=== PATIENT | male | born 1945 | race Two or more races ===

== ENCOUNTER 2022-03-31 10:31 | Inpatient (IN) | payer OTHER, SELFPAY ==
[2022-03-31] VITALS (20 sets, daily range): BP systolic 86–138; BP diastolic 52–88; PULSE 40–74; RESP 10–24; TEMP 31.7–37.4; O2SAT 91–98; BMI 29.5
--- NOTE | ~2022-03-31 | XR_ITS ---
EXAMINATION: XR chest 1V CLINICAL INFORMATION: Reason for Exam s/p central line placement COMPARISON: Chest radiograph 04/06/2022 TECHNIQUE: One view of the chest XR/XR chest 1V FINDINGS/IMPRESSION: Interval placement of a right internal jugular central venous catheter tip terminating in the upper superior vena cava. No pneumothorax. Low lung volumes with similar small right pleural effusion and increasing right greater than left patchy parenchymal airspace opacities, possibly reflective of atelectasis in the setting of low lung volumes though superimposed infection could appear similar. Unchanged cardiomediastinal silhouette.
--- NOTE | ~2022-03-31 | XR_ITS ---
EXAMINATION: XR CHEST CLINICAL INFORMATION: Hypoxemia COMPARISON: 04/05/2022 TECHNIQUE: Frontal view of the chest was obtained. FINDINGS: The lungs are hypoinflated. Small right pleural effusion is suspected with adjacent atelectasis versus consolidation, similar to possibly slightly improved from prior. Minimal atelectasis is suspected at the left lung base. No evidence of pneumothorax or overt pulmonary edema. The cardiomediastinal silhouette is stable. Degenerative changes are noted in the spine. XR/XR chest 1V IMPRESSION: Small right pleural effusion with adjacent basilar atelectasis versus consolidation, similar to possibly slightly improved from prior.
--- NOTE | ~2022-03-31 | CT_ITS ---
EXAMINATION: CT ABDOMEN AND PELVIS WITHOUT CONTRAST CLINICAL INFORMATION: Nephrostomy tube. Pain. Hematuria. COMPARISON: None TECHNIQUE: Multidetector volumetric imaging was performed from the superior aspect of the liver through the pubic symphysis. Sagittal and coronal reformatted images were obtained on the technologist's workstation. This CT examination was performed using dose optimization techniques as appropriate, variously including the following: *Automated exposure control *Adjustment of mA and/or kV according to patient size (this includes techniques or standardized protocols for targeted exams where dose is matched to indication/reason for exam; i.e. extremities or head) *Use of iterative reconstruction technique DLP: 603 mGy-cm FINDINGS: LUNG BASES: Moderate right and small left pleural effusions. Associated lower lobe atelectasis. Patchy opacity of the right middle lobe and lingula. Coronary artery calcifications. Enlarged heart. LIVER, GALLBLADDER, AND BILIARY TREE: Normal size and attenuation of the liver. There is a nodular hepatic Contour. No biliary ductal dilatation. Calcifications in the liver with no focal mass identified. Stones layering in the gallbladder lumen. No wall thickening or adjacent inflammation. PANCREAS: Unremarkable. SPLEEN: Unremarkable. ADRENAL GLANDS: Unremarkable. KIDNEYS AND URETERS: The kidneys are normal in size, shape, and attenuation. There is a percutaneous nephrostomy tube at the left kidney. No left hydronephrosis. There is hydroureter. There is mild right hydroureteronephrosis. The ureters are dilated to the level of the bladder. No calculi. Simple right upper pole renal cyst. No specific follow-up recommended. BLADDER: There is a Waldrop catheter in the bladder lumen. Bladder remains partially distended with wall thickening. GASTROINTESTINAL TRACT: The stomach is decompressed. Normal caliber small bowel. No colonic wall thickening or inflammation. Moderate diffuse colonic stool burden. Free air. ABDOMINAL WALL: No significant hernia is appreciated. Mild anasarca. LYMPH NODES: Normal. VASCULAR: Mild atherosclerotic calcifications. There is an abdominal aortic aneurysm measuring 4.1 cm transverse by 2.7 cm AP. PELVIC VISCERA: Enlarged prostate measures 5 cm transverse. The seminal vesicles are unremarkable. OSSEOUS STRUCTURES: No acute or suspicious osseous abnormality. Mild to moderate degenerative changes throughout the spine. CT/CT abdomen pelvis wo IV con IMPRESSION: 1. Left percutaneous nephrostomy tube is in place. Bilateral hydroureter with right-sided hydronephrosis. The dilatation extends to the level of the bladder. Etiology is uncertain. This could be associated with outlet obstruction, though infection or mass are not excluded. 2. Moderate right and small left pleural effusions. Patchy opacities at the lung bases could be infectious or inflammatory. 3. Abdominal aortic aneurysm measuring 4.1 cm transverse. Recommend follow-up every 6 months and nonemergent vascular consultation. 4. Cholelithiasis. Fleischner guidelines were followed.
--- NOTE | ~2022-03-31 | US_ITS ---
EXAMINATION: US ABDOMEN COMPLETE CLINICAL INFORMATION: Evaluate for hydronephrosis, liver disease. COMPARISON: CT scan of the abdomen and pelvis dated 04/03/2022. TECHNIQUE: Real-time imaging of the abdominal viscera. FINDINGS: PANCREAS: Visualized portions unremarkable. ABDOMINAL AORTA: Visualized portions unremarkable. INFERIOR VENA CAVA: Visualized portions unremarkable. LIVER: Unremarkable. GALLBLADDER: Mildly distended limiting evaluation. Mild mural thickening up to 0.6 cm without edema or pericholecystic fluid. Multiple small echogenic gallstones measuring up to 1.3 cm. COMMON BILE DUCT: Normal in caliber measuring 0.3 cm in diameter. RIGHT KIDNEY: 11.0 cm. Interval anechoic cyst measures is 1.0 cm. Color Doppler showed no abnormal vascular flow. LEFT KIDNEY: 11.1 cm. Left nephrostomy tube in place without abnormality. No left hydronephrosis. Tiny subcapsular anechoic cyst laterally measures 0.4 cm. Color Doppler showed no abnormal vascular flow. SPLEEN: 16.2 cm. Unremarkable. FREE FLUID: None. US/US abdomen complete IMPRESSION: 1. Left nephrostomy tube in place without hydronephrosis. Tiny renal cysts bilaterally demonstrate benign features not requiring follow-up. 2. Cholelithiasis without evidence for acute cholecystitis. Mild mural thickening is likely secondary to incomplete distention/chronic change.
--- NOTE | ~2022-03-31 | XR_ITS ---
EXAMINATION: XR CHEST CLINICAL INFORMATION: Sepsis COMPARISON: None TECHNIQUE: Frontal view of the chest was obtained. FINDINGS: Cardiomegaly and pulmonary venous congestion. Bilateral patchy airspace opacities, coalescent and parahilar regions. Small right pleural effusion with accompanying atelectasis. No acute osseous abnormalities. XR/XR chest 1V IMPRESSION: * Bilateral patchy airspace opacities are nonspecific. Pulmonary edema or pneumonitis could have this appearance. * Small right pleural effusion with accompanying atelectasis.
--- NOTE | ~2022-03-31 | XR_ITS ---
EXAMINATION: XR CHEST CLINICAL INFORMATION: Shortness of breath COMPARISON: Chest radiograph yesterday TECHNIQUE: Frontal view of the chest was obtained. FINDINGS: Again seen is cardiomegaly pulmonary vascular congestion. Airspace changes on the right as well as on the left are improved with decreased opacity. Small right effusion and right basilar atelectasis remain. XR/XR chest 1V IMPRESSION: Cardiomegaly with pulmonary vascular congestion and small right effusion. Appearances are slightly improved when compared to yesterday.
--- NOTE | ~2022-03-31 | CT_ITS ---
EXAMINATION: CT HEAD WITHOUT CONTRAST (STROKE PROTOCOL) CLINICAL INFORMATION: Stroke protocol. . Point pupils. Unresponsive. COMPARISON: None TECHNIQUE: Contiguous axial imaging was performed from the skull base to vertex without intravenous administration of contrast. This CT examination was performed using dose optimization techniques as appropriate, variously including the following: *Automated exposure control *Adjustment of mA and/or kV according to patient size (this includes techniques or standardized protocols for targeted exams where dose is matched to indication/reason for exam; i.e. extremities or head) *Use of iterative reconstruction technique DLP: 709 mGy-cm FINDINGS: There is no evidence of an extra-axial collection. There is no evidence of intra-axial or extra-axial hemorrhage. The ventricles and extra-axial CSF spaces are prominent suggestive of generalized atrophy. There is nonspecific periventricular white matter disease. No mass, mass effect or infarct is seen. Review of bone windows is normal. No skull fracture. Visualized paranasal sinuses, mastoid air cells and middle ears are clear. CT/CT head for stroke IMPRESSION: No acute intracranial pathology. Mild generalized atrophy and nonspecific periventricular white matter disease. This critical result was discussed with . workstation were at 1054 hours on 03/31/2022. It was ascertained that the content and urgency of the report was understood at the time of direct communication.
--- NOTE | ~2022-03-31 | MR_ITS ---
EXAMINATION: MR BRAIN WITHOUT CONTRAST CLINICAL INFORMATION: r/o multiple stroke COMPARISON: CT head without contrast 04/06/2022 TECHNIQUE: Multiplanar multisequence MR imaging of the brain was obtained without intravenous contrast. FINDINGS: There is no acute infarct on diffusion-weighted imaging. There is no intracranial hemorrhage on iron-sensitive imaging. No extra-axial collection or mass effect/herniation. Patchy periventricular and deep white matter T2 FLAIR hyperintensities consistent with moderate underlying microangiopathy. Small region of encephalomalacia and gliosis in the lateral right temporal lobe which may be posttraumatic. No evidence of acute hydrocephalus. There is a degree of generalized cerebral volume loss with prominence of both the ventricles and sulcal spaces. However, there appears to be mildly disproportionate prominence of the ventricles. Additionally, there is relative sulcal crowding at the vertex. Signal abnormality of the V3 segment and intradural right vertebral artery. Remaining flow voids at the skull base are maintained. The midline structures are normal. The cerebellar tonsils are normally positioned. The craniocervical junction is normal. Marrow signal is within normal limits. The visualized soft tissues are without significant abnormality. No signal abnormality within the paranasal sinuses or within the mastoid air cells. MR/MR head/brain wo con IMPRESSION: 1. No acute infarct or other acute intracranial abnormality. 2. Ventriculomegaly with slightly disproportionate ventricular enlargement relative to the degree of cerebral volume loss with sulcal crowding at the vertex. Recommend clinical correlation for normal pressure hydrocephalus. 3. Moderate chronic microangiopathy. 4. Encephalomalacia and gliosis in the lateral right temporal lobe, possibly posttraumatic. 5. Abnormal flow related signal of the distal cervical and intradural right vertebral artery related to known cervical occlusion better assessed on preceding CTA.
--- NOTE | ~2022-03-31 | XR_ITS ---
EXAMINATION: XR CHEST CLINICAL INFORMATION: Shortness of breath. COMPARISON: 04/01/2022 chest radiograph. TECHNIQUE: Frontal view of the chest was obtained. FINDINGS: There is a small right pleural effusion. The right upper lung field and left lung are clear. The heart and mediastinal structures are unremarkable. XR/XR chest 1V IMPRESSION: Interval decrease in pulmonary vascular congestion with persistent small right pleural effusion.
--- NOTE | ~2022-03-31 | CT_ITS ---
EXAMINATION: CT ABDOMEN AND PELVIS WITHOUT CONTRAST CLINICAL INFORMATION: Metabolic encephalopathy. Abdominal distention. COMPARISON: MRI brain 04/06/2022. CT abdomen pelvis 04/03/2022. CT angiography neck 03/31/2022. Chest radiograph 04/11/2022. Abdominal ultrasound 04/09/2022. TECHNIQUE: Multidetector volumetric imaging was performed from the superior aspect of the liver through the pubic symphysis. Sagittal and coronal reformatted images were obtained on the technologist's workstation. This CT examination was performed using dose optimization techniques as appropriate, variously including the following: *Automated exposure control *Adjustment of mA and/or kV according to patient size (this includes techniques or standardized protocols for targeted exams where dose is matched to indication/reason for exam; i.e. extremities or head) *Use of iterative reconstruction technique DLP: 1237 mGy-cm FINDINGS: LUNG BASES: Partial visualization is made of a moderate dependent layering pleural effusion which appears slightly decreased in size compared with 04/03/2022. Partial visualization is made of near complete right lower lobe atelectasis. A trace left pleural effusion is noted. Marked coronary artery calcific atherosclerosis is present diffusely. The heart size is grossly normal. No pericardial thickening or pericardial fluid collections identified. LIVER, GALLBLADDER, AND BILIARY TREE: Liver demonstrates a micronodular contour. The liver is normal in size. Curvilinear dystrophic calcifications over an approximate 1 cm diameter region are present within the posterior segment of the right lobe of the liver. Multiple calcified dependent layering gallstones are present within the gallbladder lumen. A moderate quantity of right subphrenic perihepatic fluid is present increased compared with 04/03/2022. PANCREAS: Unremarkable. SPLEEN: Unremarkable. ADRENAL GLANDS: Unremarkable. KIDNEYS AND URETERS: A left nephrostomy catheter is present with the catheter terminating in the left renal pelvis grossly unchanged compared with 04/03/2022. Mild left perinephric fat reticulation is present. No left perinephric fluid collections identified. Mild left pelviectasis noted. No left-sided ureterectasis. Moderate right marked right ureterectasis diffusely which is unchanged in degree compared with 04/03/2022. A 7 mm rounded low-density focus is present in the superior right renal pole and is most suspicious for a benign, simple cyst requiring no additional imaging follow-up. BLADDER: Waldrop catheter terminates within the urinary bladder with gas noted in portions of the Waldrop catheter tubing. The urinary bladder is nearly fully decompressed. GASTROINTESTINAL TRACT: Motion artifact partially obscures visualization of the abdomen pelvis including the intestines. A cecal bascule is noted. The appendix is normal in caliber. Scattered interloop fluid is noted with fluid most pronounced in the right lateral gutter (-31 Hounsfield units). ABDOMINAL WALL: Periumbilical hernia measuring 1.5 cm in diameter contains fat without evidence of inflammatory changes. Dependent subcutaneous edema is present within the pelvis and abdomen increased in prominence from the comparison exam suspicious for anasarca. LYMPH NODES: Normal. VASCULAR: Focal aneurysmal dilatation of the immediate infrarenal abdominal aorta to a maximum transverse dimension of 4.1 cm is unchanged from the comparison CT. Moderate scattered calcific atherosclerosis noted. PELVIC VISCERA: Normal size of the prostate. OSSEOUS STRUCTURES: Multilevel chronic spondylosis of the thoracolumbar spine. CT/CT abdomen pelvis wo IV con IMPRESSION: *Mild ascites increased compared with 04/03/2022. *Micronodular contour of the liver suspicious for cirrhosis. *Partially visualized moderate right pleural effusion and right lower lobe atelectasis. *Left percutaneous nephrostomy tube unchanged in positioning compared with 04/03/2022. Unchanged diffuse marked right ureterectasis compared with 04/03/2022. Waldrop catheter terminating within the urinary bladder which is nearly decompressed. 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 *Cholelithiasis.
--- NOTE | ~2022-03-31 | XR_ITS ---
EXAMINATION: XR CHEST CLINICAL INFORMATION: Question aspiration. COMPARISON: Chest x-ray 04/06/2022 TECHNIQUE: Frontal view of the chest was obtained. FINDINGS: Patient is rotated to the right with moderate opacification right lung base likely combination of effusion/infiltrate or atelectasis. The right upper lung and the left lung is clear. Heart size enlarged. Pulmonary vascularity is normal. No gross bony abnormality. XR/XR chest 1V IMPRESSION: Moderate opacification right lung base likely combination of effusion/atelectasis or infiltrate. The left lung is clear. Cardiomegaly.
--- NOTE | ~2022-03-31 | CT_ITS ---
EXAMINATION: CT HEAD WITHOUT CONTRAST (STROKE PROTOCOL) CLINICAL INFORMATION: Stroke protocol. CVA COMPARISON: CT brain 03/31/2022 TECHNIQUE: Contiguous axial imaging was performed from the skull base to vertex without intravenous administration of contrast. This CT examination was performed using dose optimization techniques as appropriate, variously including the following: *Automated exposure control *Adjustment of mA and/or kV according to patient size (this includes techniques or standardized protocols for targeted exams where dose is matched to indication/reason for exam; i.e. extremities or head) *Use of iterative reconstruction technique DLP: 773 mGy-cm FINDINGS: There is no acute intra-axial, extra-axial bleed, masses, collection midline shift. There is no acute infarction evolution. There is diffuse periventricular hypodensity in both cerebral hemispheres without mass effect. The lateral ventricles are symmetrical but moderately enlarged. No abnormality seen in the posterior fossa. There is calcification of choroid plexus fourth ventricle is noted. Bone windows reveal no calvarial abnormality. Bilateral paranasal sinuses and mastoid air cells are well-aerated. CT/CT head for stroke IMPRESSION: No acute intracranial process seen. This critical result was discussed with at 9:49 AM on 04/06/2022. It was ascertained that the content and urgency of the report was understood at the time of direct communication.
--- NOTE | ~2022-03-31 | CT_ITS ---
EXAMINATION: CT ANGIOGRAM NECK WITH CONTRAST CT ANGIOGRAM BRAIN WITH CONTRAST CLINICAL INFORMATION: Pinpoint pupils. COMPARISON: Noncontrast head CT performed earlier the same day. TECHNIQUE: Test bolus sequences followed by intravenous administration 70 mL of Omnipaque 350. Helical imaging was performed in the axial plane from the thoracic inlet to the skull vertex. Delayed postcontrast imaging of the head was also performed. The data was processed at the cardiopulmonary technologist workstation for generation of MIP sequences. Angled MIPs and volume rendered reformatted images were also generated at an offline 3D workstation under concurrent supervision. Stenoses are assessed in accordance with NASCET criteria unless otherwise indicated. This CT examination was performed using dose optimization techniques as appropriate, variously including the following: *Automated exposure control *Adjustment of mA and/or kV according to patient size (this includes techniques or standardized protocols for targeted exams where dose is matched to indication/reason for exam; i.e. extremities or head) *Use of iterative reconstruction technique FINDINGS: BRAIN: There is global cerebral volume loss and there is chronic microangiopathy. [There is no intracranial hemorrhage, hydrocephalus, extra-axial surface collection, midline shift, or other herniation pattern. Stone to white matter differentiation is diffusely maintained without evidence of an evolved acute territorial infarct. The basilar cisterns are preserved. No significant soft tissue abnormality. No acute osseous abnormality. The paranasal sinuses and the mastoid air cells are well aerated.] CERVICAL SOFT TISSUES AND LUNG APICES: Imaged upper lungs are clear. There is multilevel cervical spondylosis. There is right periauricular soft tissue stranding and thickening of the right cartilaginous external auditory canal that they can be correlated for clinical signs of right-sided otitis externa. Soft tissue within the external auditory canals bilaterally, likely cerumen that can also be correlated with direct visual inspection. NECK CTA: Atherosclerotic calcification throughout the aortic arch. Atherosclerotic calcification results in mild luminal narrowing of the left vertebral artery origin. Left cervical vertebral artery remains widely patent throughout its course. 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 Extensive atherosclerotic disease involving the carotid bifurcations bilaterally resulting in an 80-90% stenosis of the proximal right internal carotid artery and a 70% stenosis of the proximal left internal carotid artery. Retropharyngeal course of both proximal internal carotid arteries bilaterally. BRAIN CTA: No significant arterial stenoses in no acute arterial occlusions intracranially. No aneurysm. Timing of the contrast bolus allows assessment of the major dural venous sinuses, which all opacify normally] CT/CT angio head neck stroke IMPRESSION: - No acute intracranial findings. 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 Chronic encephalomalacia and gliosis within the right temporal lobe. If focal neurologic deficit persists and if not contraindicated, a MRI of the brain would be helpful in further assessment. 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 An underlying right vertebral artery dissection cannot be excluded. - Extensive atherosclerotic disease involving the carotid bifurcations bilaterally resulting in an 80-90% stenosis of the proximal right internal carotid artery and a 70% stenosis of the proximal left internal carotid artery. Retropharyngeal course of both proximal internal carotid arteries bilaterally. - There is right periauricular soft tissue stranding and thickening of the right cartilaginous external auditory canal that they can be correlated for clinical signs of right-sided otitis externa. Soft tissue within the external auditory canals bilaterally, likely cerumen that can also be correlated with direct visual inspection. Findings discussed with Dr.Steven Perez at 11:04 AM on 03/31/2022.
--- NOTE | ~2022-03-31 | NM_ITS ---
EXAMINATION: PULMONARY PERFUSION STUDY CLINICAL INFORMATION: Acute respiratory failure with hypoxia, question pulmonary embolism. COMPARISON: No previous lung scan is available for comparison. A radiograph the chest dated 04/06/2022, the same date as this lung scan, is available for comparison. TECHNIQUE: Following the intravenous administration of 4.0 mCi Tc-99m MAA an 8-view perfusion study was performed using a dual detector gamma scintillation camera. No ventilation images were obtained. FINDINGS: Perfusion images: No segmental perfusion defects are present. There is a mild diffuse decrease in activity in the right lung, and this is more severe on the posterior images in the anterior image.. The interlobar fissure on the right is prominent. No focal anatomic appearing perfusion defects are present. The contemporaneous chest radiograph shows opacification of the right lung base. NM/NM pul perfusion IMPRESSION: Very low probability of pulmonary embolism. Abnormalities described above are likely due to a right pleural effusion.
--- NOTE | ~2022-03-31 | XR_ITS ---
EXAMINATION: XR CHEST CLINICAL INFORMATION: Hypoxia COMPARISON: Chest 04/11/2022 TECHNIQUE: Frontal view of the chest was obtained. FINDINGS: The lungs are somewhat expanded but clear of acute process. There is no pleural effusion or pneumothorax. Heart size and pulmonary vascularity is normal. No gross bony abnormality seen. XR/XR chest 1V IMPRESSION: Unremarkable chest exam.
--- NOTE | ~2022-03-31 | US_ITS ---
EXAMINATION: US VENOUS ULTRASOUND WITH DOPPLER LOWER EXTREMITY, BILATERAL CLINICAL INFORMATION: Lower extremity edema. COMPARISON: None TECHNIQUE: Ultrasound of the deep veins is performed from the hip to the calf with compression sonography and color and pulse Doppler assessment. Spectral analysis with color-flow imaging is performed. FINDINGS: Exam was done portably and is somewhat limited. RIGHT: There is normal venous compression and respiratory variation and augmented flow. The visualized common femoral vein, superficial femoral vein, profunda femoral vein, popliteal vein, and the trifurcation region shows no evidence of deep venous thrombosis. There is no significant popliteal fossa cyst. LEFT: There is normal venous compression and respiratory variation and augmented flow. The visualized common femoral vein, superficial femoral vein, profunda femoral vein, popliteal vein, and the trifurcation region shows no evidence of deep venous thrombosis. There is no significant popliteal fossa cyst. If the patient's symptoms persist, followup ultrasound in 5 days 7 days might be of value to exclude proximal propagation from a non-visualized calf vein. US/US venous duplex LE BI IMPRESSION: No DVT demonstrated in the bilateral lower extremities.
[2022-03-31] MEDS: Naloxone HCl 2 MG/2 ML SYRINGE 0.8 MG IVPUSH (10:34)
--- NOTE | 2022-03-31 10:36 | ED_ITS ---
HPI - Altered Mental Status General Chief Complaint: Stroke Stated Complaint: STROKE ALERT,SNF,LETHARGY,UNK THINNERS Time Seen by Provider: 03/31/22 10:32 Source: EMS Mode of arrival: EMS Limitations: altered mental status History of Present Illness HPI narrative: Patient with altered mental status starting yesterday, today completely unarousable complaint: decreased responsiveness Onset (ago): day(s) Severity: severe Context: liver disease Related Data Home Medications Medication Instructions Recorded Confirmed acetaminophen 325 mg tablet 650 mg PO Q4H PRN Pain 03/31/22 03/31/22 amlodipine 10 mg tablet 1 tab PO DAILY 03/31/22 03/31/22 aspirin 81 mg chewable tablet 81 mg PO DAILY 03/31/22 03/31/22 atorvastatin 40 mg tablet 1 tab PO DAILY 03/31/22 03/31/22 clotrimazole 1 % topical cream 1 appl topical BID PRN Rash 03/31/22 03/31/22 docusate sodium 100 mg tablet 100 mg PO DAILY 03/31/22 03/31/22 dulaglutide 0.75 mg/0.5 mL 0.75 mg subcut WE 03/31/22 03/31/22 subcutaneous pen injector (Trulicity) ferrous sulfate 325 mg (65 mg 325 mg PO DAILY 03/31/22 03/31/22 iron) tablet insulin glargine-yfgn 100 unit/mL 14 unit subcut DAILY 03/31/22 03/31/22 subcutaneous solution insulin lispro 100 unit/mL 0 sliding scale dose subcut QIDACHS 03/31/22 03/31/22 subcutaneous solution multivitamin 1 tab PO DAILY 03/31/22 03/31/22 nadolol 20 mg tablet 1 tab PO DAILY 03/31/22 03/31/22 olanzapine 5 mg tablet 1 tab PO BEDTIME 03/31/22 03/31/22 ondansetron HCl 4 mg tablet 1 tab PO Q8H PRN Nausea 03/31/22 03/31/22 rifaximin 550 mg tablet (Xifaxan) 1 tab PO BID 03/31/22 03/31/22 sennosides 8.6 mg tablet (senna) 8.6 mg PO BEDTIME 03/31/22 03/31/22 sodium bicarbonate 650 mg tablet 650 mg PO BID 03/31/22 03/31/22 thiamine HCl (vitamin B1) 50 mg 50 mg PO DAILY 03/31/22 03/31/22 tablet triamcinolone acetonide 0.1 % 1 applic topical BID PRN Rash 03/31/22 03/31/22 topical cream Allergies Allergy/AdvReac Type Severity Reaction Status Date / Time No Known Allergies Allergy Verified 03/31/22 10:34 Review of Systems Review of Systems: Yes Unobtainable due to mental status PMFSH Social History Social History Household Members: None Housing: Assisted Living Facility Patient Tobacco Use Status: Never used Tobacco Physical Exam ED Vital Signs: Vital Signs - 24 hr 03/31/22 10:53 03/31/22 11:49 03/31/22 12:23 Temperature 89.2 F L 89.1 F L 89.2 F L Pulse Rate 65 53 53 Respiratory Rate 14 11 L 10 L Blood Pressure 116/69 98/59 L 91/55 L Pulse Oximetry 93 92 93 Oxygen Delivery Method Nasal Cannula Nasal Cannula Nasal Cannula Oxygen Flow Rate 4 4 03/31/22 12:45 03/31/22 13:33 03/31/22 13:51 Temperature 89.6 F L 90.3 F L 90.7 F L Pulse Rate 52 52 53 Respiratory Rate 11 L 11 L 11 L Blood Pressure 92/52 L 86/54 L Pulse Oximetry 94 Oxygen Delivery Method Nasal Cannula Oxygen Flow Rate 4 03/31/22 13:56 03/31/22 13:52 03/31/22 14:26 Temperature 90.7 F L 90.5 F L Pulse Rate 53 61 Respiratory Rate 11 L 18 Blood Pressure 86/54 L 119/74 Pulse Oximetry 95 92 Oxygen Delivery Method Nasal Cannula Nasal Cannula Oxygen Flow Rate 4 4 03/31/22 15:19 03/31/22 15:19 Temperature 91.2 F L 91.2 F L Pulse Rate 54 54 Respiratory Rate 20 20 Blood Pressure 101/62 101/52 L Pulse Oximetry 93 Oxygen Delivery Method Nasal Cannula Oxygen Flow Rate 4 BMI result Body Mass Index 29.5 Const Other: unresponsive HENMT Other: clear airway Eyes Other: pin point pupils Neck Neck: Yes normal visual inspection Resp Other: clear bilaterally Cardio Rate: regular rate Rhythm: regular rhythm NIH Stroke Scale Level of Consciousness: Responds only with reflex motor or autonomic effects, or unresponsive Level of Consciousness Questions: Answers neither question correctly Level of Consciousness Commands: Performs neither task correctly Best Gaze: Forced deviation (right) Facial Palsy: Normal Motor Arm (Right): No movement Motor Arm (Left): No movement Motor Leg (Right): No movement Motor Leg (Left): No movement Best Language: Mute, global aphasia Course Reevaluation(s) Reevaluation #1: Discussed with Dr. Wong who wants the patient admitted and worked up further with MRI. On initial visit patient unresponsive to Narcan Time: 11:10 Reevaluation #2: I spent 40 minutes of critical care, with interventions, assessments, speaking to patient, consultants, and family. Time: 11:56 Reevaluation #3: Hypothermia likely from a central source do not believe this is infection, will not start abx at this time Time: 14:31 Medications Administered Generic Name Dose Route Start Last Admin Trade Name Freq PRN Reason Stop Dose Admin Ceftriaxone Sodium 1 gm/ 50 mls @ 100 mls/hr 03/31/22 15:00 03/31/22 15:44 Sodium Chloride IV Infused Q24H BR[facility]TON Infusion Insulin Human Lispro 0 unit 03/31/22 16:30 03/31/22 21:11 Insulin Lispro 100 Unit/Ml 3 Ml Vial SUBCUT Not Given QIDACHS BR[facility]TON Protocol Sodium Chloride 3 ml 03/31/22 16:00 03/31/22 21:22 0.9 % Sodium Chloride Flush 3 Ml Syringe IVFLUSH 3 ml QSHIFT BR[facility]TON Administration Discontinued Medications Generic Name Dose Route Start Last Admin Trade Name Freq PRN Reason Stop Dose Admin Sodium Chloride 1,000 mls @ 999 mls/hr 03/31/22 14:30 03/31/22 16:38 Ns IV 03/31/22 15:30 Infused .Q1H1M BR[facility]TON Infusion Sodium Chloride 2,493 mls @ 2,493 mls/hr 03/31/22 14:38 03/31/22 16:38 Ns 30 ml/kg infuse over 1 hr (2493 ml) 03/31/22 15:37 Infused IV Infusion .Q1H STA Iohexol 100 ml 03/31/22 11:05 03/31/22 11:05 Iohexol 350 Mg/Ml 100 Ml Infus..Btl IV 03/31/22 11:06 70 ml ONCE ONE Administration Naloxone HCl 0.8 mg 03/31/22 10:34 03/31/22 10:34 Naloxone Hcl 2 Mg/2 Ml Syringe IVPUSH 03/31/22 10:35 0.8 mg ONCE ONE Administration Naloxone HCl 0.2 mg 03/31/22 10:40 03/31/22 11:44 Naloxone Hcl 0.4 Mg/Ml Vial IVPUSH 03/31/22 10:41 0.2 mg STAT STA Administration MDM - Altered Mental Status Lab Data Result diagrams: 04/01/22 05:57 04/01/22 04:29 Labs: Lab Results 03/31/22 03/31/22 03/31/22 Range/Units 10:38 10:39 11:14 WBC (4.8-10.8) X10*3/uL RBC (4.60-5.80) X10*6/uL Hgb (14.0-18.0) g/dl Hct (42.0-52.0) % MCV (80.0-98.0) fL MCH (27.0-33.0) pg MCHC (31.0-36.0) g/dl RDW (11.0-16.0) % Plt Count (160-400) X10*3/uL MPV (9.4-12.4) fL Immature Gran % (Auto) (0.0-0.4) % Neut % (Auto) (45-73) % Lymph % (Auto) (20-40) % [place] % (Auto) (2-11) % Eos % (Auto) (0-4) % Baso % (Auto) (0-2) % Lymph # (Auto) (1.2-4.9) X10*3/uL [place] # (Auto) (0.1-1.2) X10*3/uL Eos # (Auto) (0.0-0.4) X10*3/uL Baso # (Auto) (0.0-0.2) X10*3/uL Abs Immat Gran (auto) (0.00-0.03) X10*3/uL Absolute Neuts (auto) (2.0-8.3) x10*3/uL Absolute Nucleated RBC (0.0-0.012) X10*3/uL Nucleated RBC % (auto) (0.0-0.2) /100WBC PT (10.0-13.1) SEC Whole Blood PT 15.7 H (11.1-13.5) sec INR (0.9-1.1) Whole Blood INR 1.3 H (0.9-1.1) APTT (26.0-36.4) SEC Sodium (135-145) mmol/L Potassium (3.3-5.1) mmol/L Chloride (96-108) mmol/L Carbon Dioxide (22-29) mmol/L Anion Gap (12-20) BUN (9-16) mg/dL Creatinine (0.5-1.4) mg/dL Estim Creat Clear Calc Estimated GFR POC Glucose 151 H (60-115) mg/dL Random Glucose (60-115) mg/dL Lactic Acid (0.5-2.0) mmol/L Calcium (8.4-10.2) mg/dL Ammonia 26 (13-55) umol/L Total Creatine Kinase (38-174) U/L Troponin I High Sens (<3.5-35.0) ng/L Urine Color Urine Appearance Urine pH (5.0-9.0) Ur Specific [place] (1.005-1.025) Urine Protein (Neg-Trace) mg/dL Urine Glucose (UA) (Negative) mg/dL Urine Ketones (Negative) mg/dL Urine Blood (Negative) Urine Nitrite (Negative) Ur Leukocyte Esterase (Negative) Urine RBC (0-2) /HPF Urine WBC (0-5) /HPF Ur Squamous Epith Cells (0-2) /HPF Urine Bacteria (None Seen) Hyaline Casts (0-2) /LPF Stool Occult Blood (NEGATIVE) Influenza Type A (PCR) (Negative) Influenza Type B (PCR) (Negative) RSV RNA Qual (PCR) (Negative) SARS-CoV-2 RNA (RT-PCR) (Negative) Blood Type Antibody Screen Crossmatch 03/31/22 03/31/22 03/31/22 Range/Units 11:15 11:15 11:15 WBC 4.3 L (4.8-10.8) X10*3/uL RBC 2.14 L (4.60-5.80) X10*6/uL Hgb 5.8 L* (14.0-18.0) g/dl Hct 18.0 L* (42.0-52.0) % MCV 84.1 (80.0-98.0) fL MCH 27.1 (27.0-33.0) pg MCHC 32.2 (31.0-36.0) g/dl RDW 18.7 H (11.0-16.0) % Plt Count 37 L (160-400) X10*3/uL MPV 10.7 (9.4-12.4) fL Immature Gran % (Auto) 0.7 H (0.0-0.4) % Neut % (Auto) 81.8 H (45-73) % Lymph % (Auto) 11.2 L (20-40) % [place] % (Auto) 5.4 (2-11) % Eos % (Auto) 0.7 (0-4) % Baso % (Auto) 0.2 (0-2) % Lymph # (Auto) 0.5 L (1.2-4.9) X10*3/uL [place] # (Auto) 0.2 (0.1-1.2) X10*3/uL Eos # (Auto) 0.0 (0.0-0.4) X10*3/uL Baso # (Auto) 0.0 (0.0-0.2) X10*3/uL Abs Immat Gran (auto) 0.03 (0.00-0.03) X10*3/uL Absolute Neuts (auto) 3.5 (2.0-8.3) x10*3/uL Absolute Nucleated RBC 0.020 H (0.0-0.012) X10*3/uL Nucleated RBC % (auto) 0.5 H (0.0-0.2) /100WBC PT 13.8 H (10.0-13.1) SEC Whole Blood PT (11.1-13.5) sec INR 1.2 H (0.9-1.1) Whole Blood INR (0.9-1.1) APTT 45.0 H (26.0-36.4) SEC Sodium 141 (135-145) mmol/L Potassium 4.9 (3.3-5.1) mmol/L Chloride 114 H (96-108) mmol/L Carbon Dioxide 18 L (22-29) mmol/L Anion Gap 14 (12-20) BUN 82 H (9-16) mg/dL Creatinine 2.63 H (0.5-1.4) mg/dL Estim Creat Clear Calc 23.7 Estimated GFR 24 POC Glucose (60-115) mg/dL Random Glucose 92 (60-115) mg/dL Lactic Acid (0.5-2.0) mmol/L Calcium 7.8 L (8.4-10.2) mg/dL Ammonia (13-55) umol/L Total Creatine Kinase 21 L (38-174) U/L Troponin I High Sens (<3.5-35.0) ng/L Urine Color Urine Appearance Urine pH (5.0-9.0) Ur Specific [place] (1.005-1.025) Urine Protein (Neg-Trace) mg/dL Urine Glucose (UA) (Negative) mg/dL Urine Ketones (Negative) mg/dL Urine Blood (Negative) Urine Nitrite (Negative) Ur Leukocyte Esterase (Negative) Urine RBC (0-2) /HPF Urine WBC (0-5) /HPF Ur Squamous Epith Cells (0-2) /HPF Urine Bacteria (None Seen) Hyaline Casts (0-2) /LPF Stool Occult Blood (NEGATIVE) Influenza Type A (PCR) (Negative) Influenza Type B (PCR) (Negative) RSV RNA Qual (PCR) (Negative) SARS-CoV-2 RNA (RT-PCR) (Negative) Blood Type Antibody Screen Crossmatch 03/31/22 03/31/22 03/31/22 Range/Units 11:15 11:24 12:06 WBC (4.8-10.8) X10*3/uL RBC (4.60-5.80) X10*6/uL Hgb (14.0-18.0) g/dl Hct (42.0-52.0) % MCV (80.0-98.0) fL MCH (27.0-33.0) pg MCHC (31.0-36.0) g/dl RDW (11.0-16.0) % Plt Count (160-400) X10*3/uL MPV (9.4-12.4) fL Immature Gran % (Auto) (0.0-0.4) % Neut % (Auto) (45-73) % Lymph % (Auto) (20-40) % [place] % (Auto) (2-11) % Eos % (Auto) (0-4) % Baso % (Auto) (0-2) % Lymph # (Auto) (1.2-4.9) X10*3/uL [place] # (Auto) (0.1-1.2) X10*3/uL Eos # (Auto) (0.0-0.4) X10*3/uL Baso # (Auto) (0.0-0.2) X10*3/uL Abs Immat Gran (auto) (0.00-0.03) X10*3/uL Absolute Neuts (auto) (2.0-8.3) x10*3/uL Absolute Nucleated RBC (0.0-0.012) X10*3/uL Nucleated RBC % (auto) (0.0-0.2) /100WBC PT (10.0-13.1) SEC Whole Blood PT (11.1-13.5) sec INR (0.9-1.1) Whole Blood INR (0.9-1.1) APTT (26.0-36.4) SEC Sodium (135-145) mmol/L Potassium (3.3-5.1) mmol/L Chloride (96-108) mmol/L Carbon Dioxide (22-29) mmol/L Anion Gap (12-20) BUN (9-16) mg/dL Creatinine (0.5-1.4) mg/dL Estim Creat Clear Calc Estimated GFR POC Glucose 74 (60-115) mg/dL Random Glucose (60-115) mg/dL Lactic Acid (0.5-2.0) mmol/L Calcium (8.4-10.2) mg/dL Ammonia (13-55) umol/L Total Creatine Kinase (38-174) U/L Troponin I High Sens < 3.5 (<3.5-35.0) ng/L Urine Color Urine Appearance Urine pH (5.0-9.0) Ur Specific [place] (1.005-1.025) Urine Protein (Neg-Trace) mg/dL Urine Glucose (UA) (Negative) mg/dL Urine Ketones (Negative) mg/dL Urine Blood (Negative) Urine Nitrite (Negative) Ur Leukocyte Esterase (Negative) Urine RBC (0-2) /HPF Urine WBC (0-5) /HPF Ur Squamous Epith Cells (0-2) /HPF Urine Bacteria (None Seen) Hyaline Casts (0-2) /LPF Stool Occult Blood (NEGATIVE) Influenza Type A (PCR) (Negative) Influenza Type B (PCR) (Negative) RSV RNA Qual (PCR) (Negative) SARS-CoV-2 RNA (RT-PCR) (Negative) Blood Type A Positive Antibody Screen NEGATIVE Crossmatch See Detail 03/31/22 03/31/22 03/31/22 Range/Units 12:07 12:07 12:07 WBC (4.8-10.8) X10*3/uL RBC (4.60-5.80) X10*6/uL Hgb (14.0-18.0) g/dl Hct (42.0-52.0) % MCV (80.0-98.0) fL MCH (27.0-33.0) pg MCHC (31.0-36.0) g/dl RDW (11.0-16.0) % Plt Count (160-400) X10*3/uL MPV (9.4-12.4) fL Immature Gran % (Auto) (0.0-0.4) % Neut % (Auto) (45-73) % Lymph % (Auto) (20-40) % [place] % (Auto) (2-11) % Eos % (Auto) (0-4) % Baso % (Auto) (0-2) % Lymph # (Auto) (1.2-4.9) X10*3/uL [place] # (Auto) (0.1-1.2) X10*3/uL Eos # (Auto) (0.0-0.4) X10*3/uL Baso # (Auto) (0.0-0.2) X10*3/uL Abs Immat Gran (auto) (0.00-0.03) X10*3/uL Absolute Neuts (auto) (2.0-8.3) x10*3/uL Absolute Nucleated RBC (0.0-0.012) X10*3/uL Nucleated RBC % (auto) (0.0-0.2) /100WBC PT (10.0-13.1) SEC Whole Blood PT (11.1-13.5) sec INR (0.9-1.1) Whole Blood INR (0.9-1.1) APTT (26.0-36.4) SEC Sodium (135-145) mmol/L Potassium (3.3-5.1) mmol/L Chloride (96-108) mmol/L Carbon Dioxide (22-29) mmol/L Anion Gap (12-20) BUN (9-16) mg/dL Creatinine (0.5-1.4) mg/dL Estim Creat Clear Calc Estimated GFR POC Glucose (60-115) mg/dL Random Glucose (60-115) mg/dL Lactic Acid (0.5-2.0) mmol/L Calcium (8.4-10.2) mg/dL Ammonia (13-55) umol/L Total Creatine Kinase (38-174) U/L Troponin I High Sens (<3.5-35.0) ng/L Urine Color Yellow Urine Appearance Cloudy Urine pH 6.0 (5.0-9.0) Ur Specific [place] 1.015 (1.005-1.025) Urine Protein 100 (2+) H (Neg-Trace) mg/dL Urine Glucose (UA) Negative (Negative) mg/dL Urine Ketones Negative (Negative) mg/dL Urine Blood Large (3+) H (Negative) Urine Nitrite Negative (Negative) Ur Leukocyte Esterase Large (3+) H (Negative) Urine RBC >20 H (0-2) /HPF Urine WBC 21-50 H (0-5) /HPF Ur Squamous Epith Cells 6-10 (0-2) /HPF Urine Bacteria 1+ (None Seen) Hyaline Casts 3-5 (0-2) /LPF Stool Occult Blood NEGATIVE (NEGATIVE) Influenza Type A (PCR) NEGATIVE (Negative) Influenza Type B (PCR) NEGATIVE (Negative) RSV RNA Qual (PCR) NEGATIVE (Negative) SARS-CoV-2 RNA (RT-PCR) NEGATIVE (Negative) Blood Type Antibody Screen Crossmatch 03/31/22 03/31/22 Range/Units 14:19 15:08 WBC (4.8-10.8) X10*3/uL RBC (4.60-5.80) X10*6/uL Hgb (14.0-18.0) g/dl Hct (42.0-52.0) % MCV (80.0-98.0) fL MCH (27.0-33.0) pg MCHC (31.0-36.0) g/dl RDW (11.0-16.0) % Plt Count (160-400) X10*3/uL MPV (9.4-12.4) fL Immature Gran % (Auto) (0.0-0.4) % Neut % (Auto) (45-73) % Lymph % (Auto) (20-40) % [place] % (Auto) (2-11) % Eos % (Auto) (0-4) % Baso % (Auto) (0-2) % Lymph # (Auto) (1.2-4.9) X10*3/uL [place] # (Auto) (0.1-1.2) X10*3/uL Eos # (Auto) (0.0-0.4) X10*3/uL Baso # (Auto) (0.0-0.2) X10*3/uL Abs Immat Gran (auto) (0.00-0.03) X10*3/uL Absolute Neuts (auto) (2.0-8.3) x10*3/uL Absolute Nucleated RBC (0.0-0.012) X10*3/uL Nucleated RBC % (auto) (0.0-0.2) /100WBC PT (10.0-13.1) SEC Whole Blood PT (11.1-13.5) sec INR (0.9-1.1) Whole Blood INR (0.9-1.1) APTT (26.0-36.4) SEC Sodium (135-145) mmol/L Potassium (3.3-5.1) mmol/L Chloride (96-108) mmol/L Carbon Dioxide (22-29) mmol/L Anion Gap (12-20) BUN (9-16) mg/dL Creatinine (0.5-1.4) mg/dL Estim Creat Clear Calc Estimated GFR POC Glucose (60-115) mg/dL Random Glucose (60-115) mg/dL Lactic Acid 0.9 (0.5-2.0) mmol/L Calcium (8.4-10.2) mg/dL Ammonia (13-55) umol/L Total Creatine Kinase (38-174) U/L Troponin I High Sens (<3.5-35.0) ng/L Urine Color Yellow Urine Appearance Turbid Urine pH 5.5 (5.0-9.0) Ur Specific [place] 1.020 (1.005-1.025) Urine Protein 300 (3+) H (Neg-Trace) mg/dL Urine Glucose (UA) Negative (Negative) mg/dL Urine Ketones Negative (Negative) mg/dL Urine Blood Large (3+) H (Negative) Urine Nitrite Negative (Negative) Ur Leukocyte Esterase Large (3+) H (Negative) Urine RBC >20 H (0-2) /HPF Urine WBC >50 H (0-5) /HPF Ur Squamous Epith Cells 3-5 (0-2) /HPF Urine Bacteria Trace (None Seen) Hyaline Casts 0-2 (0-2) /LPF Stool Occult Blood (NEGATIVE) Influenza Type A (PCR) (Negative) Influenza Type B (PCR) (Negative) RSV RNA Qual (PCR) (Negative) SARS-CoV-2 RNA (RT-PCR) (Negative) Blood Type Antibody Screen Crossmatch Imaging Data CT scan - head: Radiologist's impression: no acute infarct CT angio: Radiologist's impression: IMPRESSION: - No acute intracranial findings. 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 Chronic encephalomalacia and gliosis within the right temporal lobe. If focal neurologic deficit persists and if not contraindicated, a MRI of the brain would be helpful in further assessment. ? 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 An underlying right vertebral artery dissection cannot be excluded. ? - Extensive atherosclerotic disease involving the carotid bifurcations bilaterally resulting in an 80-90% stenosis of the proximal right internal carotid artery and a 70% stenosis of the proximal left internal carotid artery. Retropharyngeal course of both proximal internal carotid arteries bilaterally. ? - There is right periauricular soft tissue stranding and thickening of the right cartilaginous external auditory canal that they can be correlated for clinical signs of right-sided otitis externa. Soft tissue within the external auditory canals bilaterally, likely cerumen that can also be correlated with direct visual inspection. ? Findings discussed with Dr.Steven Perez at 11:04 AM on 03/31/2022. Dictated By: Brendan Pillai MD Signed By: <Electronically signed by Brendan Pillai MD in [facility]> 03/31/22 1120 ECG Data ECG #1: Interpretation: sinus 60, flipped ts I, AVL, II and AVF. Discharge Plan Discharge Clinical Impression: Anemia Patient Disposition: Admitted As Inpatient Interventions: Admission Worksheet (ED) Last Done: 03/31/22 17:46 Discharge Date/Time: 03/31/22 17:51
--- NOTE | 2022-03-31 10:41 | ECG_ITS ---
Test Reason : Unresponsive Blood Pressure : / mmHG Vent. Rate : 060 BPM Atrial Rate : 060 BPM P-R Int : 228 ms QRS Dur : 088 ms QT Int : 462 ms P-R-T Axes : 000 018 205 degrees QTc Int : 462 ms Sinus rhythm with 1st degree A-V block ST & T wave abnormality, consider lateral ischemia Abnormal ECG No previous ECGs available Referred By: Oneal Perez Electronically Signed By:ISAAC ESQUIVEL MD
[2022-03-31 10:45] LABS: Prothrombin Time Whole Bld POC 15.7 sec (11.1-13.5); ~PT, ~INR - Anti Coag Clinic 1.3 (0.9-1.1)
[2022-03-31 10:46] LABS: Glucose, Whole Blood 151 mg/dL (60-115)
[2022-03-31] MEDS: iohexoL 350 MG/ML 100 ML INFUS..BTL IV (11:05)
[2022-03-31 11:21] LABS: MANUAL DIFF FLAG NO
--- NOTE | 2022-03-31 11:27 | PC.NURSE ---
PT spontaneously opening eyes. Unable to get oral, axillary, or rectal temp. PT cool to touch. Rectal temp probe applied, bear hugger applied.
[2022-03-31 11:29] LABS: INTERNATIONAL NORM RATIO 1.2 (0.9-1.1); Prothrombin Time 13.8 SEC (10.0-13.1)
[2022-03-31 11:31] LABS: Ammonia 26 umol/L (13-55)
[2022-03-31 11:35] LABS: Stroke Lab Use COMPLETE
[2022-03-31 11:39] LABS: Basophils Percent Auto 0.2 % (0-2); Eosinophils Percent Auto 0.7 % (0-4); Imm Gran Abs Auto 0.03 X10*3/uL (0.00-0.03); Imm Gran Pct Auto 0.7 % (0.0-0.4); Lymphocytes Absolute Auto 0.5 X10*3/uL (1.2-4.9); Lymphocytes Percent Auto 11.2 % (20-40); Mean Corpuscular HGB Conc 32.2 g/dl (31.0-36.0); Mean Corpuscular Hemoglobin 27.1 pg (27.0-33.0); Mean Corpuscular Volume 84.1 fL (80.0-98.0); Mean Platelet Volume 10.7 fL (9.4-12.4); Monocytes Absolute Auto 0.2 X10*3/uL (0.1-1.2); Monocytes Percent Auto 5.4 % (2-11); NRBC Pct Auto 0.5 /100WBC (0.0-0.2); Neutrophils Absolute Auto 3.5 x10*3/uL (2.0-8.3); Neutrophils Percent Auto 81.8 % (45-73); Red Blood Count 2.14 X10*6/uL (4.60-5.80); Red Cell Distribution Width 18.7 % (11.0-16.0); White Blood Count 4.3 X10*3/uL (4.8-10.8)
[2022-03-31] MEDS: Naloxone HCl 0.4 MG/ML VIAL 0.2 MG IVPUSH (11:44)
[2022-03-31 11:46] LABS: Glucose, Whole Blood 74 mg/dL (60-115)
[2022-03-31 11:46] LABS: Hemoglobin 5.8 g/dl (14.0-18.0); Troponin-I High Sensitivity < 3.5 ng/L (<3.5-35.0)
[2022-03-31 11:47] LABS: Platelet Count 37 X10*3/uL (160-400)
[2022-03-31 11:52] LABS: Anion Gap 14 (12-20); Blood Urea Nitrogen 82 mg/dL (9-16); Calcium 7.8 mg/dL (8.4-10.2); Carbon Dioxide 18 mmol/L (22-29); Chloride 114 mmol/L (96-108); Creatinine Clr Calc Pharmacy 23.7; Estimated Glomerular Filt Rate 24; Glucose Random 92 mg/dL (60-115); Potassium 4.9 mmol/L (3.3-5.1); Sodium 141 mmol/L (135-145)
[2022-03-31 12:17] LABS: OBS Int Ctl Valid YES; OBS1 NEGATIVE (NEGATIVE)
[2022-03-31 12:19] LABS: Glucose Urine UA Negative (Negative); Leukocyte Esterase Urine Large (3+) (Negative); Nitrite Urine Negative (Negative); Specific Gravity - Urine 1.015 (1.005-1.025); UMIC TRIGGER UACC YES; Urine Blood Large (3+) (Negative); Urine Ketones Negative (Negative); Urine Protein 100 (2+) mg/dL (Neg-Trace)
[2022-03-31 12:20] LABS: Appearance Urine Cloudy; Color Urine Yellow
[2022-03-31 12:22] LABS: Bacteria Urine 1+ (None Seen); RBC Urine >20 /HPF (0-2); UACC Culture Trigger YES; WBC Urine 21-50 /HPF (0-5)
[2022-03-31 12:57] LABS: Influenza A PCR NEGATIVE (Negative); Influenza B PCR NEGATIVE (Negative); Resp Syncy Virus RNA Qual PCR NEGATIVE (Negative); SARS COV2 PCR INHOUSE NEGATIVE (Negative)
--- NOTE | 2022-03-31 13:40 | PC.NURSE ---
Addendum entered by Guerda Gomez 03/31/22 13:56: Via blood warmer. Original Note: Blood transfusing started.
--- NOTE | 2022-03-31 13:53 | PC.NURSE ---
PT tolerating blood transfusion, no change in vital signs, no respiratory change observed, afrebrile. No change in PT status since arrival time.
--- NOTE | 2022-03-31 14:17 | PC.NURSE ---
16F temp sensing villareal cath inserted. PT awakened and mumbling upon insertion.
[2022-03-31] MEDS: 0.9 % Sodium Chloride 1,000 ML 999 ML IV (14:25)
[2022-03-31 14:28] LABS: Appearance Urine Turbid; Color Urine Yellow; Glucose Urine UA Negative (Negative); Leukocyte Esterase Urine Large (3+) (Negative); Nitrite Urine Negative (Negative); PH 5.5 (5.0-9.0); UMIC TRIGGER UACC YES; Urine Blood Large (3+) (Negative); Urine Ketones Negative (Negative); Urine Protein 300 (3+) mg/dL (Neg-Trace)
--- NOTE | 2022-03-31 14:40 | PC.NURSE ---
PT awake, mumbling words, stated in Beninese shut up .
[2022-03-31 14:43] LABS: Bacteria Urine Trace (None Seen); Hyaline Casts Urine 0-2 /LPF (0-2); RBC Urine >20 /HPF (0-2); UACC Culture Trigger YES; WBC Urine >50 /HPF (0-5)
[2022-03-31] MEDS: cefTRIAXone sodium 1 GM in 0.9 % Sodium Chloride 50 ML IV (15:11)
[2022-03-31 15:38] LABS: Lactic Acid 0.9 mmol/L (0.5-2.0)
--- NOTE | 2022-03-31 16:40 | PHA.MEDREC ---
Pharmacy Consult ? Medication Reconciliation Pharmacy has completed the medication reconciliation. No jonathan Jane
--- NOTE | 2022-03-31 16:53 | P.HPHOSP_ITS ---
History of Present Illness Date of Service: 03/31/22 Chief Complaint: Unresponsiveness 76-year-old male presents from local [facility] with chief complaint of unresponsiveness. Per ER patient had pinpoint pupils but did not respond to Narcan. States initial workup included only CT head neck and brain which failed to demonstrate pathology that would be responsible for this presentation. Patient was hypotensive and hypothermic; placed on Maru Hugger and given IV fluids. Noted to be anemic with a hemoglobin of 5.6 for which 2 units were transfused. Sepsis protocol initiated with blood cultures being drawn x2; ceftriaxone 1 g IV x1 after urine culture. Saline bolus of 30 cc/kilogram given with improvement of hypotension. Urine with active sediment. .. Likely culprit. Lactate negative. Seen by ICU in consultation however patient's blood pressure and temperature of improved significantly and therefore will be admitted to telemetry for further workup and treatment of same Review of Systems Review of Systems: Unable to obtain [facility] Social History Advance Directives: No Meds Allergies Allergy/AdvReac Type Severity Reaction Status Date / Time No Known Allergies Allergy Verified 03/31/22 10:34 Active Medications: Current Medications Dextrose (Dextrose 50 % 25 Gm/50 Ml Syringe) 25 gm IVPUSH Q15M PRN; Protocol PRN Reason: per Hypoglycemia Standing Ord. Glucose (Glucose Gel 15 Gm Gel..Gram.) 15 gm PO Q15M PRN; Protocol PRN Reason: per Hypoglycemia Standing Ord. Ceftriaxone Sodium 1 gm/ (Sodium Chloride) 50 mls @ 100 mls/hr IV Q24H [facility] Last Infusion: 03/31/22 15:44 Dose: Infused Insulin Human Lispro (Insulin Lispro 100 Unit/Ml 3 Ml Vial) 0 unit SUBCUT QIDACHS [facility]; Protocol Sodium Chloride (0.9 % Sodium Chloride Flush 3 Ml Syringe) 3 ml IVFLUSH QSHIFT [facility] Last Admin: 03/31/22 15:37 Dose: Not Given Home Medications Medication Instructions Recorded Confirmed Last Taken Type acetaminophen 325 mg tablet 650 mg PO Q4H PRN Pain 03/31/22 03/31/22 Unknown History amlodipine 10 mg tablet 1 tab PO DAILY 03/31/22 03/31/22 Unknown History aspirin 81 mg chewable tablet 81 mg PO DAILY 03/31/22 03/31/22 Unknown History atorvastatin 40 mg tablet 1 tab PO DAILY 03/31/22 03/31/22 Unknown History clotrimazole 1 % topical cream 1 appl topical BID PRN Rash 03/31/22 03/31/22 Unknown History docusate sodium 100 mg tablet 100 mg PO DAILY 03/31/22 03/31/22 Unknown History dulaglutide 0.75 mg/0.5 mL 0.75 mg subcut WE 03/31/22 03/31/22 Unknown History subcutaneous pen injector (Trulicity) ferrous sulfate 325 mg (65 mg 325 mg PO DAILY 03/31/22 03/31/22 Unknown History iron) tablet insulin glargine-yfgn 100 unit/mL 14 unit subcut DAILY 03/31/22 03/31/22 Unknown History subcutaneous solution insulin lispro 100 unit/mL 0 sliding scale dose subcut QIDACHS 03/31/22 03/31/22 Unknown History subcutaneous solution multivitamin 1 tab PO DAILY 03/31/22 03/31/22 Unknown History nadolol 20 mg tablet 1 tab PO DAILY 03/31/22 03/31/22 Unknown History olanzapine 5 mg tablet 1 tab PO BEDTIME 03/31/22 03/31/22 Unknown History ondansetron HCl 4 mg tablet 1 tab PO Q8H PRN Nausea 03/31/22 03/31/22 Unknown History rifaximin 550 mg tablet (Xifaxan) 1 tab PO BID 03/31/22 03/31/22 Unknown History sennosides 8.6 mg tablet (senna) 8.6 mg PO BEDTIME 03/31/22 03/31/22 Unknown History sodium bicarbonate 650 mg tablet 650 mg PO BID 03/31/22 03/31/22 Unknown History thiamine HCl (vitamin B1) 50 mg 50 mg PO DAILY 03/31/22 03/31/22 Unknown History tablet triamcinolone acetonide 0.1 % 1 applic topical BID PRN Rash 03/31/22 03/31/22 Unknown History topical cream Physical Exam Vital Signs and Narrative: Vital Signs: Last Vital Signs Temp 91.8 F L 03/31/22 16:37 Pulse 58 03/31/22 16:37 Resp 19 03/31/22 16:37 BP 109/69 03/31/22 16:37 Pulse Ox 91 L 03/31/22 16:37 O2 Del Method 03/31/22 16:37 O2 Flow Rate 4 03/31/22 15:38 Oxygen Flow Rate 4 03/31/22 10:53 BMI result Body Mass Index 29.5 Const: Other: Unresponsive initially. . . Did track with his eyes and respond with single words after treatment Resp: Other: Clear to auscultation bilaterally no rales rhonchi or wheezes Cardio: Other: No S4; positive S1-S2; no S3 murmurs rubs or gallops GI: Other: Soft nontender nondistended normoactive bowel sounds Back/Spine/Pelvis: Other: Right nephrostomy tube Extrem: Other: No edema bilaterally Results Labs CBC and Chem 7: 03/31/22 11:15 03/31/22 11:15 Labs: Laboratory Results - last 24 hr 03/31/22 03/31/22 03/31/22 10:38 10:39 11:14 MCV MCH MCHC RDW Plt Count MPV Immature Gran % (Auto) Neut % (Auto) Lymph % (Auto) [place] % (Auto) Eos % (Auto) Baso % (Auto) Lymph # (Auto) [place] # (Auto) Eos # (Auto) Baso # (Auto) Abs Immat Gran (auto) Absolute Neuts (auto) Absolute Nucleated RBC Nucleated RBC % (auto) PT Whole Blood PT 15.7 H INR Whole Blood INR 1.3 H APTT Anion Gap Estim Creat Clear Calc Estimated GFR POC Glucose 151 H Random Glucose Lactic Acid Calcium Ammonia 26 Total Creatine Kinase Troponin I High Sens Urine Color Urine Appearance Urine pH Ur Specific [place] Urine Protein Urine Glucose (UA) Urine Ketones Urine Blood Urine Nitrite Ur Leukocyte Esterase Urine RBC Urine WBC Ur Squamous Epith Cells Urine Bacteria Hyaline Casts Stool Occult Blood Influenza Type A (PCR) Influenza Type B (PCR) RSV RNA Qual (PCR) SARS-CoV-2 RNA (RT-PCR) Blood Type Antibody Screen Crossmatch 03/31/22 03/31/22 03/31/22 11:15 11:15 11:15 MCV 84.1 MCH 27.1 MCHC 32.2 RDW 18.7 H Plt Count 37 L MPV 10.7 Immature Gran % (Auto) 0.7 H Neut % (Auto) 81.8 H Lymph % (Auto) 11.2 L [place] % (Auto) 5.4 Eos % (Auto) 0.7 Baso % (Auto) 0.2 Lymph # (Auto) 0.5 L [place] # (Auto) 0.2 Eos # (Auto) 0.0 Baso # (Auto) 0.0 Abs Immat Gran (auto) 0.03 Absolute Neuts (auto) 3.5 Absolute Nucleated RBC 0.020 H Nucleated RBC % (auto) 0.5 H PT 13.8 H Whole Blood PT INR 1.2 H Whole Blood INR APTT 45.0 H Anion Gap 14 Estim Creat Clear Calc 23.7 Estimated GFR 24 POC Glucose Random Glucose 92 Lactic Acid Calcium 7.8 L Ammonia Total Creatine Kinase 21 L Troponin I High Sens Urine Color Urine Appearance Urine pH Ur Specific [place] Urine Protein Urine Glucose (UA) Urine Ketones Urine Blood Urine Nitrite Ur Leukocyte Esterase Urine RBC Urine WBC Ur Squamous Epith Cells Urine Bacteria Hyaline Casts Stool Occult Blood Influenza Type A (PCR) Influenza Type B (PCR) RSV RNA Qual (PCR) SARS-CoV-2 RNA (RT-PCR) Blood Type Antibody Screen Crossmatch 03/31/22 03/31/22 03/31/22 11:15 11:24 12:06 MCV MCH MCHC RDW Plt Count MPV Immature Gran % (Auto) Neut % (Auto) Lymph % (Auto) [place] % (Auto) Eos % (Auto) Baso % (Auto) Lymph # (Auto) [place] # (Auto) Eos # (Auto) Baso # (Auto) Abs Immat Gran (auto) Absolute Neuts (auto) Absolute Nucleated RBC Nucleated RBC % (auto) PT Whole Blood PT INR Whole Blood INR APTT Anion Gap Estim Creat Clear Calc Estimated GFR POC Glucose 74 Random Glucose Lactic Acid Calcium Ammonia Total Creatine Kinase Troponin I High Sens < 3.5 Urine Color Urine Appearance Urine pH Ur Specific [place] Urine Protein Urine Glucose (UA) Urine Ketones Urine Blood Urine Nitrite Ur Leukocyte Esterase Urine RBC Urine WBC Ur Squamous Epith Cells Urine Bacteria Hyaline Casts Stool Occult Blood Influenza Type A (PCR) Influenza Type B (PCR) RSV RNA Qual (PCR) SARS-CoV-2 RNA (RT-PCR) Blood Type A Positive Antibody Screen NEGATIVE Crossmatch See Detail 03/31/22 03/31/22 03/31/22 12:07 12:07 12:07 MCV MCH MCHC RDW Plt Count MPV Immature Gran % (Auto) Neut % (Auto) Lymph % (Auto) [place] % (Auto) Eos % (Auto) Baso % (Auto) Lymph # (Auto) [place] # (Auto) Eos # (Auto) Baso # (Auto) Abs Immat Gran (auto) Absolute Neuts (auto) Absolute Nucleated RBC Nucleated RBC % (auto) PT Whole Blood PT INR Whole Blood INR APTT Anion Gap Estim Creat Clear Calc Estimated GFR POC Glucose Random Glucose Lactic Acid Calcium Ammonia Total Creatine Kinase Troponin I High Sens Urine Color Yellow Urine Appearance Cloudy Urine pH 6.0 Ur Specific [place] 1.015 Urine Protein 100 (2+) H Urine Glucose (UA) Negative Urine Ketones Negative Urine Blood Large (3+) H Urine Nitrite Negative Ur Leukocyte Esterase Large (3+) H Urine RBC >20 H Urine WBC 21-50 H Ur Squamous Epith Cells 6-10 Urine Bacteria 1+ Hyaline Casts 3-5 Stool Occult Blood NEGATIVE Influenza Type A (PCR) NEGATIVE Influenza Type B (PCR) NEGATIVE RSV RNA Qual (PCR) NEGATIVE SARS-CoV-2 RNA (RT-PCR) NEGATIVE Blood Type Antibody Screen Crossmatch 03/31/22 03/31/22 14:19 15:08 MCV MCH MCHC RDW Plt Count MPV Immature Gran % (Auto) Neut % (Auto) Lymph % (Auto) [place] % (Auto) Eos % (Auto) Baso % (Auto) Lymph # (Auto) [place] # (Auto) Eos # (Auto) Baso # (Auto) Abs Immat Gran (auto) Absolute Neuts (auto) Absolute Nucleated RBC Nucleated RBC % (auto) PT Whole Blood PT INR Whole Blood INR APTT Anion Gap Estim Creat Clear Calc Estimated GFR POC Glucose Random Glucose Lactic Acid 0.9 Calcium Ammonia Total Creatine Kinase Troponin I High Sens Urine Color Yellow Urine Appearance Turbid Urine pH 5.5 Ur Specific [place] 1.020 Urine Protein 300 (3+) H Urine Glucose (UA) Negative Urine Ketones Negative Urine Blood Large (3+) H Urine Nitrite Negative Ur Leukocyte Esterase Large (3+) H Urine RBC >20 H Urine WBC >50 H Ur Squamous Epith Cells 3-5 Urine Bacteria Trace Hyaline Casts 0-2 Stool Occult Blood Influenza Type A (PCR) Influenza Type B (PCR) RSV RNA Qual (PCR) SARS-CoV-2 RNA (RT-PCR) Blood Type Antibody Screen Crossmatch Imaging Radiologist's Impressions: Impressions Head CT 03/31/22 10:48 IMPRESSION: No acute intracranial pathology. Mild generalized atrophy and nonspecific periventricular white matter disease. This critical result was discussed with . workstation were at 1054 hours on 03/31/2022. It was ascertained that the content and urgency of the report was understood at the time of direct communication. Head/Neck CTA 03/31/22 10:56 IMPRESSION: - No acute intracranial findings. 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 Chronic encephalomalacia and gliosis within the right temporal lobe. If focal neurologic deficit persists and if not contraindicated, a MRI of the brain would be helpful in further assessment. 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 An underlying right vertebral artery dissection cannot be excluded. - Extensive atherosclerotic disease involving the carotid bifurcations bilaterally resulting in an 80-90% stenosis of the proximal right internal carotid artery and a 70% stenosis of the proximal left internal carotid artery. Retropharyngeal course of both proximal internal carotid arteries bilaterally. - There is right periauricular soft tissue stranding and thickening of the right cartilaginous external auditory canal that they can be correlated for clinical signs of right-sided otitis externa. Soft tissue within the external auditory canals bilaterally, likely cerumen that can also be correlated with direct visual inspection. Findings discussed with Dr.Steven Perez at 11:04 AM on 03/31/2022. Chest X-Ray 03/31/22 15:57 IMPRESSION: * Bilateral patchy airspace opacities are nonspecific. Pulmonary edema or pneumonitis could have this appearance. * Small right pleural effusion with accompanying atelectasis. Assessment and Plan (1) Sepsis: Status: Acute (2) Urinary tract infection: Status: Acute (3) Hypothermia: Status: Acute (4) Anemia: Status: Acute (5) Diabetes type 2, controlled: Status: Acute Plan 76-year-old male presents unresponsive, hypotensive, hypothermic in the backdrop of active urinary sediment. Sepsis protocol activated. Patient responded well to therapies with improvement and mental status 1. Sepsis (likely related to UTI) -sepsis focused exam performed -blood cultures x2/urine culture done before antibiotic -ceftriaxone 1 g Q 24 hours pending culture -initial lactate negative; repeat pending -30 cc/kilogram bolus completed; will infuse saline at 150/hour(bedside echo demonstrates flattening of IVC during inspiration) 2.Hypothermia -continue Maru Hugger until temperature normalizes 3. Anemia -initially transfused 2 units packed red cells -repeat CBC pending; will transfuse to hemoglobin greater than or equal to 10 -follow daily CBCs -history of cirrhosis; will follow INRs and vitamin K as indicated 4. Type 2 diabetes -patient is NPO currently -cover with lispro correctional scale Full code Vena dynes boots Patient will require at minimum 2 inpatient overnight stays to treat UTI/sepsis and repeat anemia with blood transfusion. This cannot be achieved a lesser acute setting Quality Stroke Does the patient have a stroke diagnosis?: No VTE Prior VTE?: No VTE Risk Level:: Medical - moderate - high VTE Device Contraindication: N/A - Device Ordered VTE Drug Contraindication: Treatment Not Indicated
[2022-03-31 18:05] LABS: MANUAL DIFF FLAG NO
[2022-03-31 18:08] LABS: Basophils Percent Auto 0.2 % (0-2); Eosinophils Absolute Auto 0.1 X10*3/uL (0.0-0.4); Eosinophils Percent Auto 0.9 % (0-4); Hematocrit 22.9 % (42.0-52.0); Hemoglobin 7.4 g/dl (14.0-18.0); Imm Gran Abs Auto 0.09 X10*3/uL (0.00-0.03); Imm Gran Pct Auto 1.7 % (0.0-0.4); Lymphocytes Absolute Auto 0.5 X10*3/uL (1.2-4.9); Lymphocytes Percent Auto 9.4 % (20-40); Mean Corpuscular HGB Conc 32.3 g/dl (31.0-36.0); Mean Corpuscular Hemoglobin 27.6 pg (27.0-33.0); Mean Corpuscular Volume 85.4 fL (80.0-98.0); Mean Platelet Volume 10.7 fL (9.4-12.4); Monocytes Absolute Auto 0.3 X10*3/uL (0.1-1.2); Monocytes Percent Auto 5.4 % (2-11); NRBC Pct Auto 0.4 /100WBC (0.0-0.2); Neutrophils Absolute Auto 4.4 x10*3/uL (2.0-8.3); Neutrophils Percent Auto 82.4 % (45-73); Red Blood Count 2.68 X10*6/uL (4.60-5.80); Red Cell Distribution Width 18.5 % (11.0-16.0); White Blood Count 5.3 X10*3/uL (4.8-10.8)
[2022-03-31 18:11] LABS: Platelet Count 44 X10*3/uL (160-400)
[2022-03-31 18:30] LABS: Glucose, Whole Blood 104 mg/dL (60-115)
--- NOTE | 2022-03-31 19:18 | PC.NURSE ---
New admit from ED with hypothermia needed bear hugger. Rectal probe removed per MD, rectal temp 92.3 on arrival. 1 unit of PRBC currently infusing, no adverse reactions noted. Skin is intact. Alert and oriented x2. Nephrostomy, villareal cath patent and draining. Report given to oncoming nurse.
[2022-03-31 20:19] LABS: Glucose, Whole Blood 94 mg/dL (60-115)
[2022-03-31] MEDS: 0.9 % Sodium Chloride Flush 3 ML SYRINGE IVFLUSH (21:22)
[2022-04-01 00:35] LABS: Anion Gap 16 (12-20); Blood Urea Nitrogen 70 mg/dL (9-16); Calcium 8.2 mg/dL (8.4-10.2); Carbon Dioxide 15 mmol/L (22-29); Chloride 118 mmol/L (96-108); Creatinine Clr Calc Pharmacy 24.9; Estimated Glomerular Filt Rate 25; Glucose Random 95 mg/dL (60-115); Potassium 5.3 mmol/L (3.3-5.1); Sodium 144 mmol/L (135-145)
[2022-04-01 00:41] LABS: B Type Natriuretic Peptide 432 pg/mL (<100)
[2022-04-01 03:53] VITALS: BP 127/71; PULSE 74; RESP 20; TEMP 36.4; O2SAT 92
[2022-04-01 04:36] LABS: MANUAL DIFF FLAG NO
[2022-04-01 04:41] LABS: Basophils Percent Auto 0.2 % (0-2); Eosinophils Percent Auto 0.7 % (0-4); Hematocrit 25.9 % (42.0-52.0); Hemoglobin 8.5 g/dl (14.0-18.0); Imm Gran Abs Auto 0.08 X10*3/uL (0.00-0.03); Imm Gran Pct Auto 1.3 % (0.0-0.4); Lymphocytes Absolute Auto 0.5 X10*3/uL (1.2-4.9); Lymphocytes Percent Auto 7.6 % (20-40); Mean Corpuscular HGB Conc 32.8 g/dl (31.0-36.0); Mean Corpuscular Hemoglobin 27.3 pg (27.0-33.0); Mean Corpuscular Volume 83.3 fL (80.0-98.0); Mean Platelet Volume 10.5 fL (9.4-12.4); Monocytes Absolute Auto 0.3 X10*3/uL (0.1-1.2); Monocytes Percent Auto 5.6 % (2-11); NRBC Pct Auto 0.5 /100WBC (0.0-0.2); Neutrophils Absolute Auto 5.1 x10*3/uL (2.0-8.3); Neutrophils Percent Auto 84.6 % (45-73); Red Blood Count 3.11 X10*6/uL (4.60-5.80); Red Cell Distribution Width 17.8 % (11.0-16.0); White Blood Count 6.1 X10*3/uL (4.8-10.8)
[2022-04-01 04:42] LABS: Platelet Count 59 X10*3/uL (160-400)
[2022-04-01 05:07] LABS: Alanine Aminotransferase 37 U/L (0-40); Albumin Level 2.6 g/dL (3.5-5.0); Alkaline Phosphatase 212 U/L (39-117); Anion Gap 14 (12-20); Aspartate Amino Transferase 28 U/L (5-37); Bilirubin Total 0.4 mg/dL (0.0-1.0); Blood Urea Nitrogen 67 mg/dL (9-16); Carbon Dioxide 16 mmol/L (22-29); Chloride 119 mmol/L (96-108); Creatinine Clr Calc Pharmacy 25.6; Estimated Glomerular Filt Rate 26; Glucose Fasting 75 mg/dL (60-99); Potassium 5.3 mmol/L (3.3-5.1); Sodium 144 mmol/L (135-145); Total Protein 5.4 g/dL (6.5-8.0)
--- NOTE | 2022-04-01 05:47 | PM.EVENT ---
Event Note Date of Service: 04/01/22 Event Note: Patient with blood in nephrostomy and Waldrop. Patient hemodynamically stable. Will order PT INR, CBC, fibrinogen, D-dimer
[2022-04-01 07:04] LABS: MANUAL DIFF FLAG NO
[2022-04-01 07:08] LABS: Basophils Percent Auto 0.2 % (0-2); Eosinophils Percent Auto 0.7 % (0-4); Hematocrit 25.3 % (42.0-52.0); Hemoglobin 8.4 g/dl (14.0-18.0); Imm Gran Abs Auto 0.07 X10*3/uL (0.00-0.03); Imm Gran Pct Auto 1.2 % (0.0-0.4); Lymphocytes Absolute Auto 0.5 X10*3/uL (1.2-4.9); Lymphocytes Percent Auto 7.8 % (20-40); Mean Corpuscular HGB Conc 33.2 g/dl (31.0-36.0); Mean Corpuscular Hemoglobin 27.8 pg (27.0-33.0); Mean Corpuscular Volume 83.8 fL (80.0-98.0); Monocytes Absolute Auto 0.4 X10*3/uL (0.1-1.2); Monocytes Percent Auto 6.2 % (2-11); NRBC Pct Auto 0.7 /100WBC (0.0-0.2); Neutrophils Absolute Auto 4.9 x10*3/uL (2.0-8.3); Neutrophils Percent Auto 83.9 % (45-73); Red Blood Count 3.02 X10*6/uL (4.60-5.80); Red Cell Distribution Width 18.1 % (11.0-16.0); White Blood Count 5.8 X10*3/uL (4.8-10.8)
[2022-04-01 07:10] LABS: Platelet Count 57 X10*3/uL (160-400)
[2022-04-01 07:14] LABS: INTERNATIONAL NORM RATIO 1.1 (0.9-1.1); Prothrombin Time 12.7 SEC (10.0-13.1)
[2022-04-01 07:16] LABS: D Dimer High Sensitivity 471 NG/ML
[2022-04-01 07:32] LABS: Fibrinogen > 700 MG/DL (259-690)
[2022-04-01 08:00] VITALS: BP 124/70; PULSE 85; RESP 18; TEMP 37.1; O2SAT 93
[2022-04-01] MEDS: Dextrose 5 % and Lactated Ring 1,000 ML 100 ML IVCONT ×2 (09:05→20:01)
[2022-04-01 09:08] LABS: Glucose, Whole Blood 86 mg/dL (60-115)
[2022-04-01] MEDS: 0.9 % Sodium Chloride Flush 3 ML SYRINGE IVFLUSH (09:13)
--- NOTE | 2022-04-01 10:33 | MHC.CM.PN ---
Patient was admitted with Unresponsiveness;CM spoke with Nephew/HCP/POA/Clif @ [phone] and addressed IMM with him (original to be mailed certified letter to Clif and a copy has been placed on the chart). Patient was receiving [facility] @ [place] [facility] [place] and the goal is for Patient to return there once medically cleared([facility] bed hold in effect).CM has initiated and will follow for dc planning. Patient has received [employer] vax x2.
[2022-04-01] MEDS: levoFLOXacin/D5W 500 MG/100 ML PIGGYBACK 100 MG IV (11:21)
[2022-04-01 11:57] VITALS: BP 129/71; PULSE 97; RESP 14; TEMP 36.7; O2SAT 95
--- NOTE | 2022-04-01 12:04 | P.PNIM_ITS ---
Subjective Subjective Date of Service: 04/01/22 Interval History: Mumbling nonsensically Review of Systems Unable to obtain Physical Exam Vital Signs: Vital Signs: Last Vital Signs Temp 98.1 F 04/01/22 11:57 Pulse 97 04/01/22 11:57 Resp 14 04/01/22 11:57 BP 129/71 04/01/22 11:57 Pulse Ox 95 04/01/22 11:57 O2 Del Method 04/01/22 11:57 O2 Flow Rate 6 04/01/22 11:57 Oxygen Flow Rate 4 03/31/22 10:53 BMI result Body Mass Index 29.5 Const: Other: Unresponsive initially. . . Did track with his eyes and respond with single words after treatment Resp: Other: Clear to auscultation bilaterally no rales rhonchi or wheezes Cardio: Other: No S4; positive S1-S2; no S3 murmurs rubs or gallops GI: Other: Soft nontender nondistended normoactive bowel sounds Back/Spine/Pelvis: Other: Right nephrostomy tube Extrem: Other: No edema bilaterally Objective Data Active Medications Dextrose (Dextrose 50 % 25 Gm/50 Ml Syringe) 25 gm IVPUSH Q15M PRN; Protocol PRN Reason: per Hypoglycemia Standing Ord. Glucose (Glucose Gel 15 Gm Gel..Gram.) 15 gm PO Q15M PRN; Protocol PRN Reason: per Hypoglycemia Standing Ord. Ceftriaxone Sodium 1 gm/ (Sodium Chloride) 50 mls @ 100 mls/hr IV Q24H [facility] Last Infusion: 03/31/22 15:44 Dose: 0 mls/hr Documented By: MALU Dextrose/Lactated Ringer's (D5lr) 1,000 mls @ 100 mls/hr IVCONT .Q10H [facility] Last Admin: 04/01/22 09:05 Dose: 100 mls/hr Documented By: LISA Insulin Human Lispro (Insulin Lispro 100 Unit/Ml 3 Ml Vial) 0 unit SUBCUT QIDACHS [facility]; Protocol Last Admin: 04/01/22 09:13 Dose: Not Given Documented By: LISA Non-Admin Reason: No Insulin Coverage Sodium Chloride (0.9 % Sodium Chloride Flush 3 Ml Syringe) 3 ml IVFLUSH QSHIFT [facility] Last Admin: 04/01/22 09:13 Dose: 3 ml Documented By: LISA Labs CBC & Chem 7: 04/01/22 05:57 04/01/22 04:29 Labs: Laboratory Results - last 24 hr 03/31/22 03/31/22 03/31/22 12:06 12:07 12:07 MCV MCH MCHC RDW Plt Count MPV Immature Gran % (Auto) Neut % (Auto) Lymph % (Auto) [place] % (Auto) Eos % (Auto) Baso % (Auto) Lymph # (Auto) [place] # (Auto) Eos # (Auto) Baso # (Auto) Abs Immat Gran (auto) Absolute Neuts (auto) Absolute Nucleated RBC Nucleated RBC % (auto) PT INR Fibrinogen D-Dimer High Sensitivty Anion Gap Estim Creat Clear Calc Estimated GFR POC Glucose Random Glucose Fasting Glucose Lactic Acid Calcium Total Bilirubin AST ALT Alkaline Phosphatase B-Natriuretic Peptide Total Protein Albumin Urine Color Yellow Urine Appearance Cloudy Urine pH 6.0 Ur Specific [place] 1.015 Urine Protein 100 (2+) H Urine Glucose (UA) Negative Urine Ketones Negative Urine Blood Large (3+) H Urine Nitrite Negative Ur Leukocyte Esterase Large (3+) H Urine RBC >20 H Urine WBC 21-50 H Ur Squamous Epith Cells 6-10 Urine Bacteria 1+ Hyaline Casts 3-5 Stool Occult Blood NEGATIVE Influenza Type A (PCR) Influenza Type B (PCR) RSV RNA Qual (PCR) SARS-CoV-2 RNA (RT-PCR) Blood Type A Positive Antibody Screen NEGATIVE Crossmatch See Detail 03/31/22 03/31/22 03/31/22 12:07 14:19 15:08 MCV MCH MCHC RDW Plt Count MPV Immature Gran % (Auto) Neut % (Auto) Lymph % (Auto) [place] % (Auto) Eos % (Auto) Baso % (Auto) Lymph # (Auto) [place] # (Auto) Eos # (Auto) Baso # (Auto) Abs Immat Gran (auto) Absolute Neuts (auto) Absolute Nucleated RBC Nucleated RBC % (auto) PT INR Fibrinogen D-Dimer High Sensitivty Anion Gap Estim Creat Clear Calc Estimated GFR POC Glucose Random Glucose Fasting Glucose Lactic Acid 0.9 Calcium Total Bilirubin AST ALT Alkaline Phosphatase B-Natriuretic Peptide Total Protein Albumin Urine Color Yellow Urine Appearance Turbid Urine pH 5.5 Ur Specific [place] 1.020 Urine Protein 300 (3+) H Urine Glucose (UA) Negative Urine Ketones Negative Urine Blood Large (3+) H Urine Nitrite Negative Ur Leukocyte Esterase Large (3+) H Urine RBC >20 H Urine WBC >50 H Ur Squamous Epith Cells 3-5 Urine Bacteria Trace Hyaline Casts 0-2 Stool Occult Blood Influenza Type A (PCR) NEGATIVE Influenza Type B (PCR) NEGATIVE RSV RNA Qual (PCR) NEGATIVE SARS-CoV-2 RNA (RT-PCR) NEGATIVE Blood Type Antibody Screen Crossmatch 03/31/22 03/31/22 03/31/22 18:00 18:23 20:15 MCV 85.4 MCH 27.6 MCHC 32.3 RDW 18.5 H Plt Count 44 L MPV 10.7 Immature Gran % (Auto) 1.7 H Neut % (Auto) 82.4 H Lymph % (Auto) 9.4 L [place] % (Auto) 5.4 Eos % (Auto) 0.9 Baso % (Auto) 0.2 Lymph # (Auto) 0.5 L [place] # (Auto) 0.3 Eos # (Auto) 0.1 Baso # (Auto) 0.0 Abs Immat Gran (auto) 0.09 H Absolute Neuts (auto) 4.4 Absolute Nucleated RBC 0.020 H Nucleated RBC % (auto) 0.4 H PT INR Fibrinogen D-Dimer High Sensitivty Anion Gap Estim Creat Clear Calc Estimated GFR POC Glucose 104 94 Random Glucose Fasting Glucose Lactic Acid Calcium Total Bilirubin AST ALT Alkaline Phosphatase B-Natriuretic Peptide Total Protein Albumin Urine Color Urine Appearance Urine pH Ur Specific [place] Urine Protein Urine Glucose (UA) Urine Ketones Urine Blood Urine Nitrite Ur Leukocyte Esterase Urine RBC Urine WBC Ur Squamous Epith Cells Urine Bacteria Hyaline Casts Stool Occult Blood Influenza Type A (PCR) Influenza Type B (PCR) RSV RNA Qual (PCR) SARS-CoV-2 RNA (RT-PCR) Blood Type Antibody Screen Crossmatch 04/01/22 04/01/22 04/01/22 00:03 00:03 04:29 MCV 83.3 MCH 27.3 MCHC 32.8 RDW 17.8 H Plt Count 59 L D MPV 10.5 Immature Gran % (Auto) 1.3 H Neut % (Auto) 84.6 H Lymph % (Auto) 7.6 L [place] % (Auto) 5.6 Eos % (Auto) 0.7 Baso % (Auto) 0.2 Lymph # (Auto) 0.5 L [place] # (Auto) 0.3 Eos # (Auto) 0.0 Baso # (Auto) 0.0 Abs Immat Gran (auto) 0.08 H Absolute Neuts (auto) 5.1 Absolute Nucleated RBC 0.030 H Nucleated RBC % (auto) 0.5 H PT INR Fibrinogen D-Dimer High Sensitivty Anion Gap 16 Estim Creat Clear Calc 24.9 Estimated GFR 25 POC Glucose Random Glucose 95 Fasting Glucose Lactic Acid Calcium 8.2 L Total Bilirubin AST ALT Alkaline Phosphatase B-Natriuretic Peptide 432 H Total Protein Albumin Urine Color Urine Appearance Urine pH Ur Specific [place] Urine Protein Urine Glucose (UA) Urine Ketones Urine Blood Urine Nitrite Ur Leukocyte Esterase Urine RBC Urine WBC Ur Squamous Epith Cells Urine Bacteria Hyaline Casts Stool Occult Blood Influenza Type A (PCR) Influenza Type B (PCR) RSV RNA Qual (PCR) SARS-CoV-2 RNA (RT-PCR) Blood Type Antibody Screen Crossmatch 04/01/22 04/01/22 04/01/22 04:29 05:57 05:57 MCV 83.8 MCH 27.8 MCHC 33.2 RDW 18.1 H Plt Count 57 L MPV 11.0 Immature Gran % (Auto) 1.2 H Neut % (Auto) 83.9 H Lymph % (Auto) 7.8 L [place] % (Auto) 6.2 Eos % (Auto) 0.7 Baso % (Auto) 0.2 Lymph # (Auto) 0.5 L [place] # (Auto) 0.4 Eos # (Auto) 0.0 Baso # (Auto) 0.0 Abs Immat Gran (auto) 0.07 H Absolute Neuts (auto) 4.9 Absolute Nucleated RBC 0.040 H Nucleated RBC % (auto) 0.7 H PT 12.7 INR 1.1 Fibrinogen > 700 H D-Dimer High Sensitivty 471 Anion Gap 14 Estim Creat Clear Calc 25.6 Estimated GFR 26 POC Glucose Random Glucose Fasting Glucose 75 Lactic Acid Calcium 8.0 L Total Bilirubin 0.4 AST 28 ALT 37 Alkaline Phosphatase 212 H B-Natriuretic Peptide Total Protein 5.4 L Albumin 2.6 L Urine Color Urine Appearance Urine pH Ur Specific [place] Urine Protein Urine Glucose (UA) Urine Ketones Urine Blood Urine Nitrite Ur Leukocyte Esterase Urine RBC Urine WBC Ur Squamous Epith Cells Urine Bacteria Hyaline Casts Stool Occult Blood Influenza Type A (PCR) Influenza Type B (PCR) RSV RNA Qual (PCR) SARS-CoV-2 RNA (RT-PCR) Blood Type Antibody Screen Crossmatch 04/01/22 09:04 MCV MCH MCHC RDW Plt Count MPV Immature Gran % (Auto) Neut % (Auto) Lymph % (Auto) [place] % (Auto) Eos % (Auto) Baso % (Auto) Lymph # (Auto) [place] # (Auto) Eos # (Auto) Baso # (Auto) Abs Immat Gran (auto) Absolute Neuts (auto) Absolute Nucleated RBC Nucleated RBC % (auto) PT INR Fibrinogen D-Dimer High Sensitivty Anion Gap Estim Creat Clear Calc Estimated GFR POC Glucose 86 Random Glucose Fasting Glucose Lactic Acid Calcium Total Bilirubin AST ALT Alkaline Phosphatase B-Natriuretic Peptide Total Protein Albumin Urine Color Urine Appearance Urine pH Ur Specific [place] Urine Protein Urine Glucose (UA) Urine Ketones Urine Blood Urine Nitrite Ur Leukocyte Esterase Urine RBC Urine WBC Ur Squamous Epith Cells Urine Bacteria Hyaline Casts Stool Occult Blood Influenza Type A (PCR) Influenza Type B (PCR) RSV RNA Qual (PCR) SARS-CoV-2 RNA (RT-PCR) Blood Type Antibody Screen Crossmatch Microbiology Microbiology Results: Microbiology 03/31/22 00:00 Urine Culture - Preliminary Urine Other - Nephrostomy Culture in progress. 03/31/22 15:02 Blood Culture - Final Blood - Venous 03/31/22 15:02 Blood Culture - Final Blood - Venous Assessment and Plan (1) Urinary tract infection: Status: Acute (2) Diabetes type 2, controlled: Status: Acute (3) Anemia: Status: Acute Plan 76-year-old male presents unresponsive, hypotensive, hypothermic in the backdrop of active urinary sediment. Sepsis protocol activated. Patient responded well to therapies with improvement and mental status 1.UTI -ceftriaxone 1 g Q 24 hours pending culture 2.Hypothermia -normalized 3. Anemia -initially transfused 2 units packed red cells -repeat CBC pending; will transfuse to hemoglobin greater than or equal to 10 -follow daily CBCs -history of cirrhosis; will follow INRs and vitamin K as indicated 4. Type 2 diabetes -patient is NPO currently -cover with lispro correctional scale Full code Vena dynes boots Patient will require ongoing hospitalization for IV antibiotics to treat UTI Quality Stroke Does the patient have a stroke diagnosis?: No VTE Prior VTE?: No VTE Risk Level:: Medical - moderate - high VTE Device Contraindication: N/A - Device Ordered VTE Drug Contraindication: Treatment Not Indicated
[2022-04-01 12:35] LABS: Glucose, Whole Blood 96 mg/dL (60-115)
[2022-04-01 15:24] VITALS: BP 113/72; PULSE 72; RESP 20; TEMP 36.4; O2SAT 94
[2022-04-01 15:47] LABS: Glucose, Whole Blood 116 mg/dL (60-115)
[2022-04-01] MEDS: cefTRIAXone sodium 1 GM in 0.9 % Sodium Chloride 50 ML IV (15:54)
[2022-04-01 19:49] VITALS: BP 121/78; PULSE 78; RESP 18; TEMP 36.9; O2SAT 96
[2022-04-01 23:51] VITALS: BP 106/68; PULSE 65; RESP 16; TEMP 33.9; O2SAT 92
[2022-04-02 01:13] LABS: MANUAL DIFF FLAG NO
[2022-04-02 01:15] LABS: Basophils Percent Auto 0.2 % (0-2); Eosinophils Absolute Auto 0.1 X10*3/uL (0.0-0.4); Hematocrit 26.5 % (42.0-52.0); Hemoglobin 8.8 g/dl (14.0-18.0); Imm Gran Abs Auto 0.06 X10*3/uL (0.00-0.03); Lymphocytes Absolute Auto 0.5 X10*3/uL (1.2-4.9); Lymphocytes Percent Auto 8.5 % (20-40); Mean Corpuscular HGB Conc 33.2 g/dl (31.0-36.0); Mean Corpuscular Volume 84.4 fL (80.0-98.0); Mean Platelet Volume 9.6 fL (9.4-12.4); Monocytes Absolute Auto 0.5 X10*3/uL (0.1-1.2); NRBC Pct Auto 0.3 /100WBC (0.0-0.2); Neutrophils Absolute Auto 4.7 x10*3/uL (2.0-8.3); Neutrophils Percent Auto 81.3 % (45-73); Red Blood Count 3.14 X10*6/uL (4.60-5.80); Red Cell Distribution Width 18.6 % (11.0-16.0); White Blood Count 5.8 X10*3/uL (4.8-10.8)
[2022-04-02 01:16] LABS: Platelet Count 49 X10*3/uL (160-400)
[2022-04-02 03:03] VITALS: BP 121/83; PULSE 67; RESP 15; TEMP 35.7; O2SAT 90
[2022-04-02] MEDS: Haloperidol Lactate 5 MG/ML VIAL 2.5 MG IVPUSH (04:05)
[2022-04-02] MEDS: Dextrose 5 % and Lactated Ring 1,000 ML 100 ML IVCONT ×2 (05:45→13:09)
[2022-04-02 06:23] LABS: MANUAL DIFF FLAG NO
--- NOTE | 2022-04-02 06:39 | PC.NURSE ---
Pt's rectal temp was 93. Since he has a bear hugger ordered we put that on him and let the provider know. His nephrostomy and foleys were also leaking bright red blood which was a change from the previous shift per report. During the night he also kept trying to jump out of bed so the provider ordered haldol.
[2022-04-02 06:40] LABS: Basophils Percent Auto 0.2 % (0-2); Eosinophils Absolute Auto 0.1 X10*3/uL (0.0-0.4); Eosinophils Percent Auto 1.4 % (0-4); Hematocrit 26.5 % (42.0-52.0); Hemoglobin 8.6 g/dl (14.0-18.0); Imm Gran Abs Auto 0.05 X10*3/uL (0.00-0.03); Imm Gran Pct Auto 0.9 % (0.0-0.4); Lymphocytes Absolute Auto 0.5 X10*3/uL (1.2-4.9); Lymphocytes Percent Auto 8.2 % (20-40); Mean Corpuscular HGB Conc 32.5 g/dl (31.0-36.0); Mean Corpuscular Hemoglobin 27.7 pg (27.0-33.0); Mean Corpuscular Volume 85.5 fL (80.0-98.0); Mean Platelet Volume 10.3 fL (9.4-12.4); Monocytes Absolute Auto 0.4 X10*3/uL (0.1-1.2); Monocytes Percent Auto 7.8 % (2-11); Neutrophils Absolute Auto 4.6 x10*3/uL (2.0-8.3); Neutrophils Percent Auto 81.5 % (45-73); Red Cell Distribution Width 18.6 % (11.0-16.0); White Blood Count 5.6 X10*3/uL (4.8-10.8)
[2022-04-02 06:43] LABS: Platelet Count 54 X10*3/uL (160-400)
[2022-04-02 07:47] LABS: Alanine Aminotransferase 30 U/L (0-40); Albumin Level 2.6 g/dL (3.5-5.0); Alkaline Phosphatase 209 U/L (39-117); Aspartate Amino Transferase 24 U/L (5-37); Bilirubin Total 0.5 mg/dL (0.0-1.0); Blood Urea Nitrogen 57 mg/dL (9-16); Creatinine Clr Calc Pharmacy 24.5; Estimated Glomerular Filt Rate 25; Glucose Fasting 131 mg/dL (60-99); Total Protein 5.4 g/dL (6.5-8.0)
[2022-04-02 08:00] VITALS: BP 151/82; PULSE 75; RESP 14; TEMP 36.2; O2SAT 93
[2022-04-02 08:00] LABS: Anion Gap 15 (12-20); Calcium 8.7 mg/dL (8.4-10.2); Carbon Dioxide 16 mmol/L (22-29); Chloride 121 mmol/L (96-108); Potassium 4.7 mmol/L (3.3-5.1); Sodium 147 mmol/L (135-145)
[2022-04-02 08:13] LABS: Glucose, Whole Blood 106 mg/dL (60-115)
--- NOTE | 2022-04-02 10:28 | PM.UROCN ---
History of Present Illness Consult details Consult date: 04/02/22 Narrative: Left PCN tube hematuria 76-year-old male Admitted from facility with confusion Poor historian Hematuria within left PCN tube Nurse thinks is secondary to manipulation Recommend flush b.i.d. 10 cc without withdrawal No history of when tube placed Review of Systems Constitutional: Constitutional: Reports as per HPI and Reports no additional constitutional complaints Cardiovascular: Cardiovascular: Reports as per HPI and Reports no additional cardiovascular complaints Respiratory: Respiratory: Reports as per HPI and Reports no additional respiratory complaints Gastrointestinal: Gastrointestinal: Reports as per HPI and Reports no additional gastrointestinal complaints Genitourinary: Genitourinary: Reports as per HPI Musculoskeletal: Musculoskeletal: Reports no additional musculoskeletal complaints and Reports as per HPI Neurologic: Reports system reviewed and no additional complaints, except as documented and Reports as per HPI COUNTS INCLUDE 234 BEDS AT THE [facility] Social History Social History Household Members: None Housing: Assisted Living Facility Patient Tobacco Use Status: Never used Tobacco service: No Current occupational status: disabled Meds Allergies Allergy/AdvReac Type Severity Reaction Status Date / Time No Known Allergies Allergy Verified 03/31/22 10:34 Active Medications: Current Medications Dextrose (Dextrose 50 % 25 Gm/50 Ml Syringe) 25 gm IVPUSH Q15M PRN; Protocol PRN Reason: per Hypoglycemia Standing Ord. Glucose (Glucose Gel 15 Gm Gel..Gram.) 15 gm PO Q15M PRN; Protocol PRN Reason: per Hypoglycemia Standing Ord. Ceftriaxone Sodium 1 gm/ (Sodium Chloride) 50 mls @ 100 mls/hr IV Q24H [facility] Last Infusion: 04/01/22 16:49 Dose: Infused Dextrose/Lactated Ringer's (D5lr) 1,000 mls @ 100 mls/hr IVCONT .Q10H [facility] Last Admin: 04/02/22 05:45 Dose: 100 mls/hr Insulin Human Lispro (Insulin Lispro 100 Unit/Ml 3 Ml Vial) 0 unit SUBCUT QIDACHS [facility]; Protocol Last Admin: 04/02/22 08:35 Dose: Not Given Sodium Chloride (0.9 % Sodium Chloride Flush 3 Ml Syringe) 3 ml IVFLUSH QSHIFT [facility] Last Admin: 04/02/22 00:35 Dose: Not Given Home Medications Medication Instructions Recorded Confirmed Last Taken Type acetaminophen 325 mg tablet 650 mg PO Q4H PRN Pain 03/31/22 03/31/22 Unknown History amlodipine 10 mg tablet 1 tab PO DAILY 03/31/22 03/31/22 Unknown History aspirin 81 mg chewable tablet 81 mg PO DAILY 03/31/22 03/31/22 Unknown History atorvastatin 40 mg tablet 1 tab PO DAILY 03/31/22 03/31/22 Unknown History clotrimazole 1 % topical cream 1 appl topical BID PRN Rash 03/31/22 03/31/22 Unknown History docusate sodium 100 mg tablet 100 mg PO DAILY 03/31/22 03/31/22 Unknown History dulaglutide 0.75 mg/0.5 mL 0.75 mg subcut WE 03/31/22 03/31/22 Unknown History subcutaneous pen injector (Trulicity) ferrous sulfate 325 mg (65 mg 325 mg PO DAILY 03/31/22 03/31/22 Unknown History iron) tablet insulin glargine-yfgn 100 unit/mL 14 unit subcut DAILY 03/31/22 03/31/22 Unknown History subcutaneous solution insulin lispro 100 unit/mL 0 sliding scale dose subcut QIDACHS 03/31/22 03/31/22 Unknown History subcutaneous solution multivitamin 1 tab PO DAILY 03/31/22 03/31/22 Unknown History nadolol 20 mg tablet 1 tab PO DAILY 03/31/22 03/31/22 Unknown History olanzapine 5 mg tablet 1 tab PO BEDTIME 03/31/22 03/31/22 Unknown History ondansetron HCl 4 mg tablet 1 tab PO Q8H PRN Nausea 03/31/22 03/31/22 Unknown History rifaximin 550 mg tablet (Xifaxan) 1 tab PO BID 03/31/22 03/31/22 Unknown History sennosides 8.6 mg tablet (senna) 8.6 mg PO BEDTIME 03/31/22 03/31/22 Unknown History sodium bicarbonate 650 mg tablet 650 mg PO BID 03/31/22 03/31/22 Unknown History thiamine HCl (vitamin B1) 50 mg 50 mg PO DAILY 03/31/22 03/31/22 Unknown History tablet triamcinolone acetonide 0.1 % 1 applic topical BID PRN Rash 03/31/22 03/31/22 Unknown History topical cream Physical Exam Vital Signs: Vital Signs: Last Vital Signs Temp 97.1 F 04/02/22 08:00 Pulse 75 04/02/22 08:00 Resp 14 04/02/22 08:00 BP 151/82 H 04/02/22 08:00 Pulse Ox 93 04/02/22 08:00 O2 Del Method 04/02/22 08:00 O2 Flow Rate 6 04/02/22 08:00 Oxygen Flow Rate 4 03/31/22 10:53 BMI result Body Mass Index 29.5 Const: General: cooperative, healthy appearing, comfortable and no acute distress Orientation/consciousness: patient oriented x3 HEENT: Face and sinus: Yes normal facial exam Mouth: moist mucous membranes Neck: Neck: Yes normal visual inspection, Yes full ROM and Yes trachea midline Chest: Chest palpation & inspection: normal inspection of the chest Resp: Effort & Inspection: normal respiratory effort, able to speak in complete sentences and no respiratory distress GI: Inspection: Yes normal to inspection Back/Spine/Pelvis: Cervical Spine: normal cervical lordosis Thoracic/Lumbar Spine: thoracic and lumbar spine normal to inspection Skin: General skin exam: no rashes or lesions noted Neuro: General: patient oriented x3, tone normal and moves all extremities Extrem: General: Yes normal to inspection and Yes capillary refill normal Results Labs Result diagrams: 04/02/22 05:48 04/02/22 05:48 Labs: Abnormal lab results 04/01/22 04/02/22 04/02/22 Range/Units 15:26 01:08 05:48 RBC 3.14 L 3.10 L (4.60-5.80) X10*6/uL Hgb 8.8 L 8.6 L (14.0-18.0) g/dl Hct 26.5 L 26.5 L (42.0-52.0) % RDW 18.6 H 18.6 H (11.0-16.0) % Plt Count 49 L 54 L (160-400) X10*3/uL Immature Gran % (Auto) 1.0 H 0.9 H (0.0-0.4) % Neut % (Auto) 81.3 H 81.5 H (45-73) % Lymph % (Auto) 8.5 L 8.2 L (20-40) % Lymph # (Auto) 0.5 L 0.5 L (1.2-4.9) X10*3/uL Abs Immat Gran (auto) 0.06 H 0.05 H (0.00-0.03) X10*3/uL Absolute Nucleated RBC 0.020 H (0.0-0.012) X10*3/uL Nucleated RBC % (auto) 0.3 H (0.0-0.2) /100WBC Sodium (135-145) mmol/L Chloride (96-108) mmol/L Carbon Dioxide (22-29) mmol/L BUN (9-16) mg/dL Creatinine (0.5-1.4) mg/dL POC Glucose 116 H (60-115) mg/dL Fasting Glucose (60-99) mg/dL Alkaline Phosphatase (39-117) U/L Total Protein (6.5-8.0) g/dL Albumin (3.5-5.0) g/dL 04/02/22 Range/Units 05:48 RBC (4.60-5.80) X10*6/uL Hgb (14.0-18.0) g/dl Hct (42.0-52.0) % RDW (11.0-16.0) % Plt Count (160-400) X10*3/uL Immature Gran % (Auto) (0.0-0.4) % Neut % (Auto) (45-73) % Lymph % (Auto) (20-40) % Lymph # (Auto) (1.2-4.9) X10*3/uL Abs Immat Gran (auto) (0.00-0.03) X10*3/uL Absolute Nucleated RBC (0.0-0.012) X10*3/uL Nucleated RBC % (auto) (0.0-0.2) /100WBC Sodium 147 H (135-145) mmol/L Chloride 121 H (96-108) mmol/L Carbon Dioxide 16 L (22-29) mmol/L BUN 57 H (9-16) mg/dL Creatinine 2.55 H (0.5-1.4) mg/dL POC Glucose (60-115) mg/dL Fasting Glucose 131 H (60-99) mg/dL Alkaline Phosphatase 209 H (39-117) U/L Total Protein 5.4 L (6.5-8.0) g/dL Albumin 2.6 L (3.5-5.0) g/dL Short CBC 04/02/22 04/02/22 Range/Units 01:08 05:48 WBC 5.8 5.6 (4.8-10.8) X10*3/uL Hgb 8.8 L 8.6 L (14.0-18.0) g/dl Hct 26.5 L 26.5 L (42.0-52.0) % Plt Count 49 L 54 L (160-400) X10*3/uL BMP 04/02/22 05:48 Sodium 147 H Potassium 4.7 Chloride 121 H Carbon Dioxide 16 L BUN 57 H Creatinine 2.55 H Calcium 8.7 D Liver Function 04/02/22 Range/Units 05:48 Total Bilirubin 0.5 (0.0-1.0) mg/dL AST 24 (5-37) U/L ALT 30 (0-40) U/L Alkaline Phosphatase 209 H (39-117) U/L Albumin 2.6 L (3.5-5.0) g/dL Urine 03/31/22 03/31/22 Range/Units 12:07 14:19 Urine Color Yellow Yellow Urine Appearance Cloudy Turbid Urine pH 6.0 5.5 (5.0-9.0) Ur Specific [place] 1.015 1.020 (1.005-1.025) Urine Protein 100 (2+) H 300 (3+) H (Neg-Trace) mg/dL Urine Glucose (UA) Negative Negative (Negative) mg/dL All other labs normal. Assessment and Plan (1) Gross hematuria: Status: Acute Plan Flushed PCN Will follow Procedures Date of Service Date of Service: 04/02/22
[2022-04-02] MEDS: 0.9 % Sodium Chloride Flush 3 ML SYRINGE IVFLUSH ×2 (10:36→15:44)
[2022-04-02] MEDS: Haloperidol Lactate 5 MG/ML VIAL IM (11:32)
[2022-04-02 11:39] VITALS: BP 121/75; PULSE 71; RESP 12; TEMP 36; O2SAT 85
[2022-04-02 11:44] LABS: Glucose, Whole Blood 116 mg/dL (60-115)
[2022-04-02 13:04] VITALS: BMI 29.5
--- NOTE | 2022-04-02 13:11 | MHC.CM.PN ---
PT WILL NOT BE MEDICALLY CLEARED TODAY DCP REMAINS RETURN TO [facility]
--- NOTE | 2022-04-02 14:32 | HO.PM.IMPN ---
Subjective Subjective Date of Service: 04/03/22 Interval History: Awake agitated. Pulling at suprapubic line Review of Systems Unable to obtain Physical Exam Vital Signs: Vital Signs: Last Vital Signs Temp 96.8 F 04/02/22 11:39 Pulse 71 04/02/22 11:39 Resp 12 04/02/22 11:39 BP 121/75 04/02/22 11:39 Pulse Ox 85 L 04/02/22 11:39 O2 Del Method 04/02/22 11:39 O2 Flow Rate 6 04/02/22 08:00 Oxygen Flow Rate 4 03/31/22 10:53 BMI result Body Mass Index 29.5 Const: Other: Unresponsive initially. . . Did track with his eyes and respond with single words after treatment Resp: Other: Clear to auscultation bilaterally no rales rhonchi or wheezes Cardio: Other: No S4; positive S1-S2; no S3 murmurs rubs or gallops GI: Other: Soft nontender nondistended normoactive bowel sounds; hematuria secondary to mechanical irritation Back/Spine/Pelvis: Other: Right nephrostomy tube with claudia blood secondary to mechanical irritation Extrem: Other: No edema bilaterally Objective Data Active Medications Dextrose (Dextrose 50 % 25 Gm/50 Ml Syringe) 25 gm IVPUSH Q15M PRN; Protocol PRN Reason: per Hypoglycemia Standing Ord. Glucose (Glucose Gel 15 Gm Gel..Gram.) 15 gm PO Q15M PRN; Protocol PRN Reason: per Hypoglycemia Standing Ord. Ceftriaxone Sodium 1 gm/ (Sodium Chloride) 50 mls @ 100 mls/hr IV Q24H [facility] Last Infusion: 04/01/22 16:49 Dose: 100 mls/hr Documented By: LISA Dextrose/Lactated Ringer's (D5lr) 1,000 mls @ 100 mls/hr IVCONT .Q10H [facility] Last Admin: 04/02/22 13:09 Dose: 100 mls/hr Documented By: SHERICE Insulin Human Lispro (Insulin Lispro 100 Unit/Ml 3 Ml Vial) 0 unit SUBCUT QIDACHS [facility]; Protocol Last Admin: 04/02/22 11:47 Dose: Not Given Documented By: SHERICE Non-Admin Reason: No Insulin Coverage Sodium Chloride (0.9 % Sodium Chloride Flush 3 Ml Syringe) 3 ml IVFLUSH QSHIFT [facility] Last Admin: 04/02/22 10:36 Dose: 3 ml Documented By: SHERICE Labs CBC & Chem 7: 04/03/22 06:20 04/02/22 05:48 Labs: Laboratory Results - last 24 hr 04/01/22 04/02/22 04/02/22 15:26 01:08 05:48 MCV 84.4 85.5 MCH 28.0 27.7 MCHC 33.2 32.5 RDW 18.6 H 18.6 H Plt Count 49 L 54 L MPV 9.6 10.3 Immature Gran % (Auto) 1.0 H 0.9 H Neut % (Auto) 81.3 H 81.5 H Lymph % (Auto) 8.5 L 8.2 L [place] % (Auto) 8.0 7.8 Eos % (Auto) 1.0 1.4 Baso % (Auto) 0.2 0.2 Lymph # (Auto) 0.5 L 0.5 L [place] # (Auto) 0.5 0.4 Eos # (Auto) 0.1 0.1 Baso # (Auto) 0.0 0.0 Abs Immat Gran (auto) 0.06 H 0.05 H Absolute Neuts (auto) 4.7 4.6 Absolute Nucleated RBC 0.020 H 0.000 Nucleated RBC % (auto) 0.3 H 0.0 Anion Gap Estim Creat Clear Calc Estimated GFR POC Glucose 116 H Fasting Glucose Calcium Total Bilirubin AST ALT Alkaline Phosphatase Total Protein Albumin 04/02/22 04/02/22 04/02/22 05:48 08:10 11:38 MCV MCH MCHC RDW Plt Count MPV Immature Gran % (Auto) Neut % (Auto) Lymph % (Auto) [place] % (Auto) Eos % (Auto) Baso % (Auto) Lymph # (Auto) [place] # (Auto) Eos # (Auto) Baso # (Auto) Abs Immat Gran (auto) Absolute Neuts (auto) Absolute Nucleated RBC Nucleated RBC % (auto) Anion Gap 15 Estim Creat Clear Calc 24.5 Estimated GFR 25 POC Glucose 106 116 H Fasting Glucose 131 H Calcium 8.7 D Total Bilirubin 0.5 AST 24 ALT 30 Alkaline Phosphatase 209 H Total Protein 5.4 L Albumin 2.6 L Microbiology Microbiology Results: Microbiology 03/31/22 00:00 Urine Culture - Preliminary Urine Other - Nephrostomy Staphylococcus species 03/31/22 15:07 Blood Culture - Preliminary Blood - Venous No growth after 24 hours. 03/31/22 15:07 Blood Culture - Preliminary Blood - Venous No growth after 24 hours. Assessment and Plan (1) Urinary tract infection: Status: Acute (2) Hypothermia: Status: Acute (3) Anemia: Status: Acute Plan 76-year-old male presents unresponsive, hypotensive, hypothermic in the backdrop of active urinary sediment. Sepsis protocol activated. Patient responded well to therapies with improvement and mental status 1.UTI -ceftriaxone 1 g Q 24 hours pending culture 2.Hypothermia -normalized 3. Anemia -initially transfused 2 units packed red cells --follow daily CBCs -history of cirrhosis; will follow INRs and vitamin K as indicated 4. Type 2 diabetes -patient is NPO currently.... Speech eval pending -cover with lispro correctional scale 5. Dementia with agitated features -p.r.n. Haldol/hydroxyzine -start Seroquel Full code Vena dynes abel Patient will require ongoing hospitalization for IV antibiotics to treat UTI Quality Stroke Does the patient have a stroke diagnosis?: No VTE Prior VTE?: No VTE Risk Level:: Medical - moderate - high VTE Device Contraindication: N/A - Device Ordered VTE Drug Contraindication: Treatment Not Indicated
--- NOTE | 2022-04-02 14:57 | MHC.SLORD ---
Speech Language Pathology Order Status: Order received this p.m. for swallow assessment. Attempted to see patient, however he was uncooperative, pushing away all offers of P.O. repeating what I said with carrier No you.....1. Brualio Garcia; 2. Drink this; 3. Fasting ). Unable to assess, , RN notified by secure text.
[2022-04-02] MEDS: cefTRIAXone sodium 1 GM in 0.9 % Sodium Chloride 50 ML IV (15:29)
[2022-04-02] MEDS: hydrOXYzine HCL 50 MG/ML VIAL IM (15:33)
[2022-04-02] MEDS: QUEtiapine Fumarate 25 MG TABLET PO (15:44)
[2022-04-02 15:49] VITALS: BP 179/95; PULSE 70; RESP 18; TEMP 35.8; O2SAT 89
[2022-04-02 16:45] LABS: Glucose, Whole Blood 135 mg/dL (60-115)
--- NOTE | 2022-04-02 19:47 | PC.NURSE ---
Pt combative and resistive to care, refused to keep on oxygen, redirected multiple times with no effect. Haldol , Seroquel and Atarax admin with minimal effect. Pt refused swallow evaluation with speech therapist, MD aware. Education And Training Coordinator and MD notified POA.
[2022-04-03] VITALS: BP 160/77; BP 160/81; PULSE 53; PULSE 58; RESP 17; O2SAT 98
[2022-04-03 00:21] LABS: Glucose, Whole Blood 119 mg/dL (60-115)
[2022-04-03 00:35] LABS: MANUAL DIFF FLAG NO
[2022-04-03] MEDS: OLANZapine 10 MG VIAL 5 MG IM ×2 (00:38→22:39)
[2022-04-03 00:40] LABS: Basophils Percent Auto 0.1 % (0-2); Eosinophils Absolute Auto 0.1 X10*3/uL (0.0-0.4); Eosinophils Percent Auto 1.2 % (0-4); Hematocrit 29.2 % (42.0-52.0); Hemoglobin 9.5 g/dl (14.0-18.0); Imm Gran Pct Auto 1.5 % (0.0-0.4); Lymphocytes Absolute Auto 0.7 X10*3/uL (1.2-4.9); Lymphocytes Percent Auto 9.6 % (20-40); Mean Corpuscular HGB Conc 32.5 g/dl (31.0-36.0); Mean Corpuscular Hemoglobin 27.7 pg (27.0-33.0); Mean Corpuscular Volume 85.1 fL (80.0-98.0); Monocytes Absolute Auto 0.5 X10*3/uL (0.1-1.2); NRBC Pct Auto 0.3 /100WBC (0.0-0.2); Neutrophils Absolute Auto 5.4 x10*3/uL (2.0-8.3); Neutrophils Percent Auto 79.6 % (45-73); Red Blood Count 3.43 X10*6/uL (4.60-5.80); Red Cell Distribution Width 18.9 % (11.0-16.0); White Blood Count 6.8 X10*3/uL (4.8-10.8)
[2022-04-03 00:41] LABS: Platelet Count 61 X10*3/uL (160-400)
--- NOTE | 2022-04-03 01:49 | PC.NURSE ---
Addendum entered by Lisa Galindo 04/03/22 05:31: This incident occured at 11.40pm 04/02/22 Original Note: While RN was at the nursing Station, charting, noted CNAs rushing into patient,s room upon hearing the alarm sounding and an overhead paging regarding patient, and followed suit. Upon arrival, patient was found sitting further away to the left side from his bed on floor. He remains with some disorientation. Waldrop noted to be pulled out laying on the bed, nephrostomy bag in place draining bloody urine. He sustained no injuries, denies hitting his head. As per Camera Tech, patient had crawled himself out of bed to the floor where he was sitting.Patient had been rounded on about 40 minutes prior to this incident was found laying quietly with no agitation noted.
[2022-04-03 03:56] VITALS: BP 164/94; PULSE 63; RESP 19; O2SAT 90
[2022-04-03 04:49] VITALS: BP 145/74; PULSE 58; RESP 19; O2SAT 95
--- NOTE | 2022-04-03 05:16 | PM.EVENT ---
Event Note Date of Service: 04/03/22 Event Note: Pt was found on the floor crawling out of bed. Camera in rm, but nurse did not make it in time to rm to stop pt from crawling out of bed. Pt pulled villareal cath, and was dragging nephrostomy tube. no reported head injury. pt awake, alert, confused at baseline. pulling at wires, pulled IV line. Given zyprexa. Nephrostomy tube xternally in place, producing large amount of bloddy urine. will order abd CT.
--- NOTE | 2022-04-03 05:25 | PC.NURSE ---
Around 5am patient's nephrostomy output noted with a medium sized clot and 700ccs pink urine in bag. Also 400ccs Waldrop output. Dr Kimbrough notified. Ordered STAT CT scan of the abdomen. IV insertion established at this time.
[2022-04-03] MEDS: Haloperidol Lactate 5 MG/ML VIAL IVPUSH (05:54)
--- NOTE | 2022-04-03 05:59 | PC.NURSE ---
Patient beginning to desaturate at 88%. repeatedly removing Nasal Canula and being combative upon redirection. IV push Haldol administered as ordered.
[2022-04-03 06:45] LABS: MANUAL DIFF FLAG NO
[2022-04-03 06:52] LABS: Basophils Percent Auto 0.2 % (0-2); Eosinophils Absolute Auto 0.1 X10*3/uL (0.0-0.4); Eosinophils Percent Auto 1.4 % (0-4); Hematocrit 28.2 % (42.0-52.0); Hemoglobin 9.2 g/dl (14.0-18.0); Imm Gran Abs Auto 0.04 X10*3/uL (0.00-0.03); Imm Gran Pct Auto 0.7 % (0.0-0.4); Lymphocytes Absolute Auto 0.6 X10*3/uL (1.2-4.9); Lymphocytes Percent Auto 10.2 % (20-40); Mean Corpuscular HGB Conc 32.6 g/dl (31.0-36.0); Mean Corpuscular Hemoglobin 27.6 pg (27.0-33.0); Mean Corpuscular Volume 84.7 fL (80.0-98.0); Mean Platelet Volume 10.3 fL (9.4-12.4); Monocytes Absolute Auto 0.4 X10*3/uL (0.1-1.2); Monocytes Percent Auto 7.4 % (2-11); NRBC Pct Auto 0.4 /100WBC (0.0-0.2); Neutrophils Absolute Auto 4.5 x10*3/uL (2.0-8.3); Neutrophils Percent Auto 80.1 % (45-73); Red Blood Count 3.33 X10*6/uL (4.60-5.80); Red Cell Distribution Width 18.4 % (11.0-16.0); White Blood Count 5.7 X10*3/uL (4.8-10.8)
[2022-04-03 06:54] LABS: Platelet Count 60 X10*3/uL (160-400)
[2022-04-03 07:16] LABS: Alanine Aminotransferase 31 U/L (0-40); Albumin Level 2.7 g/dL (3.5-5.0); Alkaline Phosphatase 214 U/L (39-117); Anion Gap 14 (12-20); Aspartate Amino Transferase 24 U/L (5-37); Bilirubin Total 0.6 mg/dL (0.0-1.0); Blood Urea Nitrogen 56 mg/dL (9-16); Carbon Dioxide 17 mmol/L (22-29); Chloride 121 mmol/L (96-108); Creatinine Clr Calc Pharmacy 27.2; Estimated Glomerular Filt Rate 28; Glucose Fasting 129 mg/dL (60-99); Potassium 4.9 mmol/L (3.3-5.1); Sodium 147 mmol/L (135-145); Total Protein 5.7 g/dL (6.5-8.0)
--- NOTE | 2022-04-03 07:46 | PC.NURSE ---
Call made to inform MICHAELLE Ramos of fall incident as protocol. He verbalized understanding of such.
[2022-04-03 08:00] VITALS: BP 162/87; PULSE 60; RESP 18; TEMP 36.4; O2SAT 94
[2022-04-03 08:42] LABS: Glucose, Whole Blood 137 mg/dL (60-115)
[2022-04-03] MEDS: 0.9 % Sodium Chloride Flush 3 ML SYRINGE IVFLUSH ×2 (09:25→14:52)
[2022-04-03 11:30] VITALS: BP 141/65; PULSE 57; RESP 18; TEMP 36.4; O2SAT 95
[2022-04-03 11:52] LABS: Glucose, Whole Blood 153 mg/dL (60-115)
[2022-04-03] MEDS: OLANZapine 5 MG TABLET PO (12:29)
[2022-04-03] MEDS: Insulin Lispro 100 UNIT/ML 3 ML VIAL SUBCUT ×2 (12:29→20:51)
[2022-04-03] MEDS: amLODIPine Besylate 10 MG TABLET PO (12:29)
[2022-04-03] MEDS: nadoloL 20 MG TABLET PO (12:29)
[2022-04-03] MEDS: rifAXIMin 550 MG TABLET PO (12:29)
[2022-04-03] MEDS: Aspirin 81 MG TAB.CHEW PO (12:29)
--- NOTE | 2022-04-03 12:39 | MHC.CM.PN ---
spoke with nephew who wants to file a complainbt about pts nurse gave imfo to nursing msupervisor ,,also request qa rederral be made to [facility] in the hopes he can go there instead of [facility]uning to [facility]
[2022-04-03] MEDS: Dextrose 5 % 1,000 ML 100 ML IVCONT ×2 (13:04→20:51)
[2022-04-03] MEDS: cefTRIAXone sodium 1 GM in 0.9 % Sodium Chloride 50 ML IV (14:51)
--- NOTE | 2022-04-03 14:53 | HO.PM.IMPN ---
Subjective Subjective Date of Service: 04/03/22 Interval History: More alert today somewhat agitated Review of Systems Unable to obtain Physical Exam Vital Signs: Vital Signs: Last Vital Signs Temp 97.5 F 04/03/22 11:30 Pulse 57 04/03/22 11:30 Resp 18 04/03/22 11:30 BP 141/65 H 04/03/22 11:30 Pulse Ox 95 04/03/22 11:30 O2 Del Method 04/03/22 11:30 O2 Flow Rate 3 04/03/22 11:30 Oxygen Flow Rate 4 03/31/22 10:53 BMI result Body Mass Index 29.5 Const: Other: Unresponsive initially. . . Did track with his eyes and respond with single words after treatment Resp: Other: Clear to auscultation bilaterally no rales rhonchi or wheezes Cardio: Other: No S4; positive S1-S2; no S3 murmurs rubs or gallops GI: Other: Soft nontender nondistended normoactive bowel sounds; hematuria secondary to mechanical irritation Back/Spine/Pelvis: Other: Right nephrostomy tube with claudia blood secondary to mechanical irritation Extrem: Other: No edema bilaterally Objective Data Active Medications Amlodipine Besylate (Amlodipine Besylate 10 Mg Tablet) 10 mg PO DAILY [facility]; Protocol Last Admin: 04/03/22 12:29 Dose: 10 mg Documented By: HAM Aspirin (Aspirin 81 Mg Tab.Chew) 81 mg PO DAILY [facility] Last Admin: 04/03/22 12:29 Dose: 81 mg Documented By: HAM Atorvastatin Calcium (Atorvastatin Calcium 40 Mg Tablet) 40 mg PO DAILY [facility] Dextrose (Dextrose 50 % 25 Gm/50 Ml Syringe) 25 gm IVPUSH Q15M PRN; Protocol PRN Reason: per Hypoglycemia Standing Ord. Ferrous Sulfate (Ferrous Sulfate 324 Mg Tablet.Dr) 324 mg PO DAILY [facility] Glucose (Glucose Gel 15 Gm Gel..Gram.) 15 gm PO Q15M PRN; Protocol PRN Reason: per Hypoglycemia Standing Ord. Ceftriaxone Sodium 1 gm/ (Sodium Chloride) 50 mls @ 100 mls/hr IV Q24H [facility] Last Admin: 04/03/22 14:51 Dose: 100 mls/hr Documented By: MIKE Dextrose (D5w) 1,000 mls @ 100 mls/hr IVCONT .Q10H [facility] Last Admin: 04/03/22 13:04 Dose: 100 mls/hr Documented By: HAM Insulin Human Lispro (Insulin Lispro 100 Unit/Ml 3 Ml Vial) 0 unit SUBCUT QIDACHS [facility]; Protocol Last Admin: 04/03/22 12:29 Dose: 2 unit Documented By: HAM Nadolol (Nadolol 20 Mg Tablet) 20 mg PO DAILY [facility]; Protocol Last Admin: 04/03/22 12:29 Dose: 20 mg Documented By: HAM Olanzapine (Olanzapine 5 Mg Tablet) 5 mg PO DAILY [facility] Last Admin: 04/03/22 12:29 Dose: 5 mg Documented By: HAM Quetiapine Fumarate (Quetiapine Fumarate 25 Mg Tablet) 25 mg PO BID [facility] Last Admin: 04/03/22 09:37 Dose: Not Given Documented By: MIKE Non-Admin Reason: Patient Refused Rifaximin (Rifaximin 550 Mg Tablet) 550 mg PO BID [facility] Last Admin: 04/03/22 12:29 Dose: 550 mg Documented By: HAM Sodium Chloride (0.9 % Sodium Chloride Flush 3 Ml Syringe) 3 ml IVFLUSH QSHIFT [facility] Last Admin: 04/03/22 14:52 Dose: 3 ml Documented By: MIKE Labs CBC & Chem 7: 04/03/22 06:20 04/03/22 06:20 Labs: Laboratory Results - last 24 hr 04/02/22 04/03/22 04/03/22 16:39 00:17 00:31 MCV 85.1 MCH 27.7 MCHC 32.5 RDW 18.9 H Plt Count 61 L MPV 10.0 Immature Gran % (Auto) 1.5 H Neut % (Auto) 79.6 H Lymph % (Auto) 9.6 L [place] % (Auto) 8.0 Eos % (Auto) 1.2 Baso % (Auto) 0.1 Lymph # (Auto) 0.7 L [place] # (Auto) 0.5 Eos # (Auto) 0.1 Baso # (Auto) 0.0 Abs Immat Gran (auto) 0.10 H Absolute Neuts (auto) 5.4 Absolute Nucleated RBC 0.020 H Nucleated RBC % (auto) 0.3 H Anion Gap Estim Creat Clear Calc Estimated GFR POC Glucose 135 H 119 H Fasting Glucose Calcium Total Bilirubin AST ALT Alkaline Phosphatase Total Protein Albumin 04/03/22 04/03/22 04/03/22 06:20 06:20 08:38 MCV 84.7 MCH 27.6 MCHC 32.6 RDW 18.4 H Plt Count 60 L MPV 10.3 Immature Gran % (Auto) 0.7 H Neut % (Auto) 80.1 H Lymph % (Auto) 10.2 L [place] % (Auto) 7.4 Eos % (Auto) 1.4 Baso % (Auto) 0.2 Lymph # (Auto) 0.6 L [place] # (Auto) 0.4 Eos # (Auto) 0.1 Baso # (Auto) 0.0 Abs Immat Gran (auto) 0.04 H Absolute Neuts (auto) 4.5 Absolute Nucleated RBC 0.020 H Nucleated RBC % (auto) 0.4 H Anion Gap 14 Estim Creat Clear Calc 27.2 Estimated GFR 28 POC Glucose 137 H Fasting Glucose 129 H Calcium 9.0 Total Bilirubin 0.6 AST 24 ALT 31 Alkaline Phosphatase 214 H Total Protein 5.7 L Albumin 2.7 L 04/03/22 11:33 MCV MCH MCHC RDW Plt Count MPV Immature Gran % (Auto) Neut % (Auto) Lymph % (Auto) [place] % (Auto) Eos % (Auto) Baso % (Auto) Lymph # (Auto) [place] # (Auto) Eos # (Auto) Baso # (Auto) Abs Immat Gran (auto) Absolute Neuts (auto) Absolute Nucleated RBC Nucleated RBC % (auto) Anion Gap Estim Creat Clear Calc Estimated GFR POC Glucose 153 H Fasting Glucose Calcium Total Bilirubin AST ALT Alkaline Phosphatase Total Protein Albumin Microbiology Microbiology Results: Microbiology 03/31/22 00:00 Urine Culture - Final Urine Other - Nephrostomy Staphylococcus cohnii ssp urea 03/31/22 15:07 Blood Culture - Preliminary Blood - Venous No growth after 48 hours. 03/31/22 15:07 Blood Culture - Preliminary Blood - Venous No growth after 48 hours. Assessment and Plan (1) Urinary tract infection: Status: Acute (2) Hypothermia: Status: Acute (3) Diabetes type 2, controlled: Status: Acute Plan 76-year-old male presents unresponsive, hypotensive, hypothermic in the backdrop of active urinary sediment. Sepsis protocol activated. Patient responded well to therapies with improvement and mental status 1.UTI -ceftriaxone 1 g Q 24 hours pending culture 2.Hypothermia -normalized 3. Anemia -initially transfused 2 units packed red cells --follow daily CBCs -history of cirrhosis; will follow INRs and vitamin K as indicated 4. Type 2 diabetes -patient is NPO currently.... Speech eval pending -cover with lispro correctional scale 5. Dementia with agitated features -add back olanzapine -start Seroquel Full code Vena dynes boots Patient will require ongoing hospitalization for IV antibiotics to treat UTI Quality Stroke Does the patient have a stroke diagnosis?: No VTE Prior VTE?: No VTE Risk Level:: Medical - moderate - high VTE Device Contraindication: N/A - Device Ordered VTE Drug Contraindication: Treatment Not Indicated
[2022-04-03 15:29] VITALS: BP 165/113; PULSE 66; RESP 18; TEMP 36.7; O2SAT 93
[2022-04-03 16:21] LABS: Glucose, Whole Blood 91 mg/dL (60-115)
[2022-04-03 19:40] LABS: Glucose, Whole Blood 152 mg/dL (60-115)
[2022-04-04] VITALS (8 sets, daily range): BP systolic 117–154; BP diastolic 61–92; PULSE 53–58; RESP 16–20; TEMP 35.1–35.4; O2SAT 94–98
[2022-04-04] MEDS: OLANZapine 10 MG VIAL 5 MG IM (05:55)
[2022-04-04] MEDS: Dextrose 5 % 1,000 ML 100 ML IVCONT ×2 (06:00→16:51)
[2022-04-04 08:06] LABS: Glucose, Whole Blood 134 mg/dL (60-115)
--- NOTE | 2022-04-04 08:18 | P.PNIM_ITS ---
Subjective Subjective Date of Service: 04/04/22 Interval History: Confused/agitated overnight. Pulling at Waldrop and suprapubic tube. .. Staff very attentive. Required 2 IM doses of Zyprexa overnight Review of Systems Unable to obtain Physical Exam Vital Signs: Vital Signs: Last Vital Signs Temp 98.0 F 04/03/22 15:29 Pulse 54 04/04/22 07:36 Resp 18 04/04/22 07:36 BP 154/81 H 04/04/22 07:36 Pulse Ox 94 04/04/22 07:36 O2 Del Method 04/04/22 07:36 O2 Flow Rate 3 04/04/22 07:36 Oxygen Flow Rate 4 03/31/22 10:53 BMI result Body Mass Index 29.5 Const: Other: Awake confused. Uncooperative with care Resp: Other: Clear to auscultation bilaterally no rales rhonchi wheezes Cardio: Other: No S4; positive S1-S2; no S3 murmurs rubs gallops : Other: Suprapubic tube draining claudia blood overnight which now has cleared with irrigation; Waldrop draining claudia blood now clear with irrigation; clots noted around catheter which was changed by nursing. (direct trauma from patient) Extrem: Other: No edema Objective Data Active Medications Amlodipine Besylate (Amlodipine Besylate 10 Mg Tablet) 10 mg PO DAILY [facility]; Protocol Last Admin: 04/03/22 12:29 Dose: 10 mg Documented By: HAM Aspirin (Aspirin 81 Mg Tab.Chew) 81 mg PO DAILY [facility] Last Admin: 04/03/22 12:29 Dose: 81 mg Documented By: HAM Atorvastatin Calcium (Atorvastatin Calcium 40 Mg Tablet) 40 mg PO DAILY [facility] Dextrose (Dextrose 50 % 25 Gm/50 Ml Syringe) 25 gm IVPUSH Q15M PRN; Protocol PRN Reason: per Hypoglycemia Standing Ord. Ferrous Sulfate (Ferrous Sulfate 324 Mg Tablet.Dr) 324 mg PO DAILY [facility] Glucose (Glucose Gel 15 Gm Gel..Gram.) 15 gm PO Q15M PRN; Protocol PRN Reason: per Hypoglycemia Standing Ord. Ceftriaxone Sodium 1 gm/ (Sodium Chloride) 50 mls @ 100 mls/hr IV Q24H [facility] Last Infusion: 04/03/22 16:46 Dose: 0 mls/hr Documented By: MIKE Dextrose (D5w) 1,000 mls @ 100 mls/hr IVCONT .Q10H [facility] Last Admin: 04/04/22 06:00 Dose: 100 mls/hr Documented By: ITALO Insulin Human Lispro (Insulin Lispro 100 Unit/Ml 3 Ml Vial) 0 unit SUBCUT QIDACHS [facility]; Protocol Last Admin: 04/04/22 07:49 Dose: Not Given Documented By: ARLIN Non-Admin Reason: No Insulin Coverage Melatonin (Melatonin 3 Mg Tablet) 6 mg PO BEDTIME PRN PRN Reason: insomnia Nadolol (Nadolol 20 Mg Tablet) 20 mg PO DAILY [facility]; Protocol Last Admin: 04/03/22 12:29 Dose: 20 mg Documented By: HAM Olanzapine (Olanzapine 5 Mg Tablet) 5 mg PO DAILY [facility] Last Admin: 04/03/22 12:29 Dose: 5 mg Documented By: HAM Olanzapine (Olanzapine 10 Mg Vial) 5 mg IM ONCE PRN PRN Reason: anxiety/restlessness Last Admin: 04/03/22 22:39 Dose: 5 mg Documented By: ITALO Quetiapine Fumarate (Quetiapine Fumarate 25 Mg Tablet) 25 mg PO BID [facility] Last Admin: 04/03/22 21:57 Dose: Not Given Documented By: ITALO Non-Admin Reason: Patient Refused Rifaximin (Rifaximin 550 Mg Tablet) 550 mg PO BID [facility] Last Admin: 04/03/22 21:57 Dose: Not Given Documented By: ITALO Non-Admin Reason: Patient Refused Sodium Chloride (0.9 % Sodium Chloride Flush 3 Ml Syringe) 3 ml IVFLUSH QSHIFT [facility] Last Admin: 04/03/22 23:24 Dose: Not Given Documented By: ITALO Non-Admin Reason: IV Running Labs CBC & Chem 7: 04/03/22 06:20 04/03/22 06:20 Labs: Laboratory Results - last 24 hr 04/03/22 04/03/22 04/03/22 08:38 11:33 16:17 POC Glucose 137 H 153 H 91 04/03/22 04/04/22 19:35 07:38 POC Glucose 152 H 134 H Microbiology Microbiology Results: Microbiology 03/31/22 00:00 Urine Culture - Final Urine Other - Nephrostomy Staphylococcus cohnii ssp urea Assessment and Plan (1) Urinary tract infection: Status: Acute (2) Gross hematuria: Status: Acute (3) Hypothermia: Status: Acute (4) Anemia: Status: Acute Plan 76-year-old male presents unresponsive, hypotensive, hypothermic in the backdrop of active urinary sediment. Has become increasingly more agitated and uncooperative pulling at catheter and nephrostomy tube. Now with claudia hematuria and clots around Waldrop. Waldrop to be replaced by 3 way catheter for CBI; medicate as indicated. 1. Hematuria (patient now with one-to-one sitter. Has received 2 p.r.n. doses of Zyprexa with little effect.) -CBI with normal saline until clear -will ask Dr. Bermudez. .. ?Additional interventions (has seen earlier this admission) -check stat labs 2.UTI -ceftriaxone 1 g Q 24 hours.. -culture unreliable from nephrostomy tube. Will ask ID input 2.Hypothermia -hypothermic this a.m. however BP and sats stable -Maru Njgger to normalize temp -follow rectal temps -normalized 3. Anemia -in light of recent events will check stat CBC -transfuse as indicated 4. Type 2 diabetes -diet resumed.. . limited intake -continue lispro coorectional scale. 5. Dementia with agitated features -add back olanzapine -start Seroquel Full code Vena chantelle roman Patient will require ongoing hospitalization for IV antibiotics to treat UTI Quality Stroke Does the patient have a stroke diagnosis?: No VTE Prior VTE?: No VTE Risk Level:: Medical - moderate - high VTE Device Contraindication: N/A - Device Ordered VTE Drug Contraindication: Treatment Not Indicated
--- NOTE | 2022-04-04 08:25 | PC.NURSE ---
Addendum entered by Jackie Colin RN 04/04/22 09:35: 09:00 Urologist to bedside to assess patient villareal catheter and left nephrostomy tube for claudia red output Original Note: PT villareal catheter had large red clot and bloody red drainage around urethra. MD to bedside to assess patient. Per MD pt villareal catheter was hand irrigated 120 ml sterile saline. Villareal is patent and draining claudia red. Bladder scan 49 ml. MD notified.
[2022-04-04] MEDS: 0.9 % Sodium Chloride Flush 3 ML SYRINGE IVFLUSH ×2 (08:28→16:52)
[2022-04-04 08:48] LABS: MANUAL DIFF FLAG NO
[2022-04-04 08:52] LABS: Basophils Percent Auto 0.2 % (0-2); Eosinophils Absolute Auto 0.1 X10*3/uL (0.0-0.4); Hemoglobin 7.9 g/dl (14.0-18.0); Imm Gran Abs Auto 0.03 X10*3/uL (0.00-0.03); Imm Gran Pct Auto 0.5 % (0.0-0.4); Lymphocytes Absolute Auto 0.7 X10*3/uL (1.2-4.9); Lymphocytes Percent Auto 11.8 % (20-40); Mean Corpuscular HGB Conc 32.9 g/dl (31.0-36.0); Mean Corpuscular Hemoglobin 27.4 pg (27.0-33.0); Mean Corpuscular Volume 83.3 fL (80.0-98.0); Monocytes Absolute Auto 0.4 X10*3/uL (0.1-1.2); NRBC Pct Auto 0.4 /100WBC (0.0-0.2); Neutrophils Absolute Auto 4.4 x10*3/uL (2.0-8.3); Neutrophils Percent Auto 78.5 % (45-73); Red Blood Count 2.88 X10*6/uL (4.60-5.80); Red Cell Distribution Width 18.3 % (11.0-16.0); White Blood Count 5.6 X10*3/uL (4.8-10.8)
[2022-04-04 09:04] LABS: Platelet Count 45 X10*3/uL (160-400)
[2022-04-04 09:21] LABS: Alanine Aminotransferase 34 U/L (0-40); Albumin Level 2.5 g/dL (3.5-5.0); Alkaline Phosphatase 213 U/L (39-117); Anion Gap 12 (12-20); Aspartate Amino Transferase 39 U/L (5-37); Bilirubin Total 0.4 mg/dL (0.0-1.0); Blood Urea Nitrogen 52 mg/dL (9-16); Calcium 8.4 mg/dL (8.4-10.2); Carbon Dioxide 17 mmol/L (22-29); Chloride 116 mmol/L (96-108); Creatinine Clr Calc Pharmacy 27.5; Estimated Glomerular Filt Rate 28; Glucose Fasting 147 mg/dL (60-99); Potassium 4.5 mmol/L (3.3-5.1); Sodium 140 mmol/L (135-145); Total Protein 5.1 g/dL (6.5-8.0)
[2022-04-04] MEDS: nadoloL 20 MG TABLET PO (12:10)
[2022-04-04] MEDS: Ferrous Sulfate 324 MG TABLET.DR PO (12:11)
[2022-04-04] MEDS: amLODIPine Besylate 10 MG TABLET PO (12:11)
[2022-04-04] MEDS: Atorvastatin Calcium 40 MG TABLET PO (12:11)
[2022-04-04] MEDS: OLANZapine 5 MG TABLET PO (12:11)
[2022-04-04] MEDS: rifAXIMin 550 MG TABLET PO ×2 (12:11→20:42)
[2022-04-04] MEDS: QUEtiapine Fumarate 25 MG TABLET PO ×2 (12:11→20:42)
[2022-04-04 12:16] LABS: Glucose, Whole Blood 181 mg/dL (60-115)
[2022-04-04] MEDS: Insulin Lispro 100 UNIT/ML 3 ML VIAL SUBCUT (12:52)
[2022-04-04] MEDS: cefTRIAXone sodium 1 GM in 0.9 % Sodium Chloride 50 ML IV (14:47)
[2022-04-04 16:57] LABS: Glucose, Whole Blood 128 mg/dL (60-115)
[2022-04-04 20:28] LABS: Glucose, Whole Blood 87 mg/dL (60-115)
[2022-04-05] VITALS (7 sets, daily range): BP systolic 114–149; BP diastolic 60–79; PULSE 64–83; RESP 16–20; TEMP 35.8–37.6; O2SAT 87–97
[2022-04-05] MEDS: Dextrose 5 % 1,000 ML 100 ML IVCONT ×2 (05:46→21:40)
[2022-04-05 06:09] LABS: MANUAL DIFF FLAG NO
[2022-04-05 06:22] LABS: Basophils Percent Auto 0.1 % (0-2); Eosinophils Absolute Auto 0.1 X10*3/uL (0.0-0.4); Eosinophils Percent Auto 1.3 % (0-4); Hematocrit 24.4 % (42.0-52.0); Hemoglobin 8.2 g/dl (14.0-18.0); Imm Gran Abs Auto 0.03 X10*3/uL (0.00-0.03); Imm Gran Pct Auto 0.4 % (0.0-0.4); Lymphocytes Absolute Auto 0.7 X10*3/uL (1.2-4.9); Lymphocytes Percent Auto 10.3 % (20-40); Mean Corpuscular HGB Conc 33.6 g/dl (31.0-36.0); Mean Corpuscular Hemoglobin 28.6 pg (27.0-33.0); Mean Platelet Volume 10.2 fL (9.4-12.4); Monocytes Absolute Auto 0.5 X10*3/uL (0.1-1.2); Monocytes Percent Auto 7.2 % (2-11); NRBC Pct Auto 0.4 /100WBC (0.0-0.2); Neutrophils Absolute Auto 5.6 x10*3/uL (2.0-8.3); Neutrophils Percent Auto 80.7 % (45-73); Red Blood Count 2.87 X10*6/uL (4.60-5.80); Red Cell Distribution Width 18.2 % (11.0-16.0)
[2022-04-05 06:28] LABS: Platelet Count 43 X10*3/uL (160-400)
[2022-04-05 06:43] LABS: Alanine Aminotransferase 31 U/L (0-40); Albumin Level 2.3 g/dL (3.5-5.0); Alkaline Phosphatase 202 U/L (39-117); Anion Gap 12 (12-20); Aspartate Amino Transferase 29 U/L (5-37); Bilirubin Total 0.4 mg/dL (0.0-1.0); Blood Urea Nitrogen 52 mg/dL (9-16); Calcium 7.9 mg/dL (8.4-10.2); Carbon Dioxide 17 mmol/L (22-29); Chloride 113 mmol/L (96-108); Creatinine Clr Calc Pharmacy 25.4; Estimated Glomerular Filt Rate 26; Glucose Fasting 115 mg/dL (60-99); Potassium 4.6 mmol/L (3.3-5.1); Sodium 137 mmol/L (135-145); Total Protein 4.9 g/dL (6.5-8.0)
[2022-04-05 07:52] LABS: Glucose, Whole Blood 114 mg/dL (60-115)
[2022-04-05 09:52] LABS: HBS Num1 0.52 mIU/mL (0-7.99); HBc Num1 9.14 S/CO (0.00-0.79); HIV AB/AG Nonreactive (Nonreactive); HIV Num 1 0.08 S/CO (0.00-0.99); Hepatitis B Surface Antigen Negative (Negative); ~HepC Num1 15.52 S/CO (0.00-0.79); ~Hepatitis B Surface Antibody NONREACTIVE (Nonreactive); ~Hepatitis C Antibody Reactive (Nonreactive)
[2022-04-05 11:19] LABS: Glucose, Whole Blood 127 mg/dL (60-115)
[2022-04-05 11:20] LABS: HBc Num2 8.88 S/CO; Hepatitis B Core Antibody Reactive (Nonreactive)
--- NOTE | 2022-04-05 11:31 | P.PNIM_ITS ---
Subjective Subjective Date of Service: 04/05/22 Interval History: Agitated behavior overnight ... Given Zyprexa with good results. Somnolent this a.m. Review of Systems Unable to obtain Physical Exam Vital Signs: Vital Signs: Last Vital Signs Temp 97.7 F 04/05/22 07:55 Pulse 73 04/05/22 07:55 Resp 20 04/05/22 07:55 BP 124/71 04/05/22 07:55 Pulse Ox 92 04/05/22 07:55 O2 Del Method 04/05/22 07:55 O2 Flow Rate 3 04/05/22 07:55 Oxygen Flow Rate 4 03/31/22 10:53 BMI result Body Mass Index 29.5 Const: Other: Appended. .. Likely from Zyprexa Resp: Other: Clear to auscultation bilaterally no rales rhonchi or wheezes Cardio: Other: No S4; positive S1-S2; no S3 murmurs rubs or gallops : Other: CBI with clear urine Back/Spine/Pelvis: Other: Percutaneous nephrostomy tube draining clear fluid; flushes well per nursing Extrem: Other: No edema bilaterally Objective Data Active Medications Amlodipine Besylate (Amlodipine Besylate 10 Mg Tablet) 10 mg PO DAILY [facility]; Protocol Last Admin: 04/04/22 12:11 Dose: 10 mg Documented By: ARLIN Aspirin (Aspirin 81 Mg Tab.Chew) 81 mg PO DAILY [facility] Last Admin: 04/04/22 08:57 Dose: Not Given Documented By: ARLIN Non-Admin Reason: Physician Held Med Atorvastatin Calcium (Atorvastatin Calcium 40 Mg Tablet) 40 mg PO DAILY [facility] Last Admin: 04/04/22 12:11 Dose: 40 mg Documented By: ARLIN Dextrose (Dextrose 50 % 25 Gm/50 Ml Syringe) 25 gm IVPUSH Q15M PRN; Protocol PRN Reason: per Hypoglycemia Standing Ord. Ferrous Sulfate (Ferrous Sulfate 324 Mg Abena.) 324 mg PO DAILY [facility] Last Admin: 04/04/22 12:11 Dose: 324 mg Documented By: ARLIN Glucose (Glucose Gel 15 Gm Gel..Gram.) 15 gm PO Q15M PRN; Protocol PRN Reason: per Hypoglycemia Standing Ord. Ceftriaxone Sodium 1 gm/ (Sodium Chloride) 50 mls @ 100 mls/hr IV Q24H [facility] Last Infusion: 04/04/22 15:40 Dose: 0 mls/hr Documented By: ARLIN Dextrose (D5w) 1,000 mls @ 100 mls/hr IVCONT .Q10H [facility] Last Admin: 04/05/22 05:46 Dose: 100 mls/hr Documented By: ITALO Insulin Human Lispro (Insulin Lispro 100 Unit/Ml 3 Ml Vial) 0 unit SUBCUT QIDACHS [facility]; Protocol Last Admin: 04/05/22 09:00 Dose: Not Given Documented By: ABHIJIT Non-Admin Reason: No Insulin Coverage Melatonin (Melatonin 3 Mg Tablet) 6 mg PO BEDTIME PRN PRN Reason: insomnia Nadolol (Nadolol 20 Mg Tablet) 20 mg PO DAILY [facility]; Protocol Last Admin: 04/04/22 12:10 Dose: 20 mg Documented By: ARLIN Olanzapine (Olanzapine 5 Mg Tablet) 5 mg PO DAILY [facility] Last Admin: 04/04/22 12:11 Dose: 5 mg Documented By: ARLIN Olanzapine (Olanzapine 10 Mg Vial) 5 mg IM ONCE PRN PRN Reason: anxiety/restlessness Last Admin: 04/03/22 22:39 Dose: 5 mg Documented By: ITALO Quetiapine Fumarate (Quetiapine Fumarate 25 Mg Tablet) 25 mg PO BID [facility] Last Admin: 04/04/22 20:42 Dose: 25 mg Documented By: ITALO Rifaximin (Rifaximin 550 Mg Tablet) 550 mg PO BID [facility] Last Admin: 04/04/22 20:42 Dose: 550 mg Documented By: ITALO Sodium Chloride (0.9 % Sodium Chloride Flush 3 Ml Syringe) 3 ml IVFLUSH QSHIFT [facility] Last Admin: 04/04/22 22:48 Dose: Not Given Documented By: ITALO Non-Admin Reason: IV Running Labs CBC & Chem 7: 04/05/22 05:42 04/05/22 05:42 Labs: Laboratory Results - last 24 hr 03/31/22 04/04/22 04/04/22 11:15 08:43 10:14 MCV MCH MCHC RDW Plt Count MPV Immature Gran % (Auto) Neut % (Auto) Lymph % (Auto) [place] % (Auto) Eos % (Auto) Baso % (Auto) Lymph # (Auto) [place] # (Auto) Eos # (Auto) Baso # (Auto) Abs Immat Gran (auto) Absolute Neuts (auto) Absolute Nucleated RBC Nucleated RBC % (auto) Smear Path Review SEE NOTE Anion Gap Estim Creat Clear Calc Estimated GFR POC Glucose Fasting Glucose Calcium Total Bilirubin AST ALT Alkaline Phosphatase Total Protein Albumin Hep Bs Antigen Negative Hep Bs Antibody NONREACTIVE Hep B Core Total Ab Reactive Hepatitis C Ab (EIA) Reactive H HIV 1&2 Ab/P24 Ag 4thGn Nonreactive Blood Type A Positive Antibody Screen NEGATIVE Crossmatch See Detail 04/04/22 04/04/22 04/04/22 11:23 16:50 20:22 MCV MCH MCHC RDW Plt Count MPV Immature Gran % (Auto) Neut % (Auto) Lymph % (Auto) [place] % (Auto) Eos % (Auto) Baso % (Auto) Lymph # (Auto) [place] # (Auto) Eos # (Auto) Baso # (Auto) Abs Immat Gran (auto) Absolute Neuts (auto) Absolute Nucleated RBC Nucleated RBC % (auto) Smear Path Review Anion Gap Estim Creat Clear Calc Estimated GFR POC Glucose 181 H 128 H 87 Fasting Glucose Calcium Total Bilirubin AST ALT Alkaline Phosphatase Total Protein Albumin Hep Bs Antigen Hep Bs Antibody Hep B Core Total Ab Hepatitis C Ab (EIA) HIV 1&2 Ab/P24 Ag 4thGn Blood Type Antibody Screen Crossmatch 04/05/22 04/05/22 04/05/22 05:42 05:42 07:15 MCV 85.0 MCH 28.6 MCHC 33.6 RDW 18.2 H Plt Count 43 L MPV 10.2 Immature Gran % (Auto) 0.4 Neut % (Auto) 80.7 H Lymph % (Auto) 10.3 L [place] % (Auto) 7.2 Eos % (Auto) 1.3 Baso % (Auto) 0.1 Lymph # (Auto) 0.7 L [place] # (Auto) 0.5 Eos # (Auto) 0.1 Baso # (Auto) 0.0 Abs Immat Gran (auto) 0.03 Absolute Neuts (auto) 5.6 Absolute Nucleated RBC 0.030 H Nucleated RBC % (auto) 0.4 H Smear Path Review Anion Gap 12 Estim Creat Clear Calc 25.4 Estimated GFR 26 POC Glucose 114 Fasting Glucose 115 H Calcium 7.9 L Total Bilirubin 0.4 AST 29 ALT 31 Alkaline Phosphatase 202 H Total Protein 4.9 L Albumin 2.3 L Hep Bs Antigen Hep Bs Antibody Hep B Core Total Ab Hepatitis C Ab (EIA) HIV 1&2 Ab/P24 Ag 4thGn Blood Type Antibody Screen Crossmatch 04/05/22 11:10 MCV MCH MCHC RDW Plt Count MPV Immature Gran % (Auto) Neut % (Auto) Lymph % (Auto) [place] % (Auto) Eos % (Auto) Baso % (Auto) Lymph # (Auto) [place] # (Auto) Eos # (Auto) Baso # (Auto) Abs Immat Gran (auto) Absolute Neuts (auto) Absolute Nucleated RBC Nucleated RBC % (auto) Smear Path Review Anion Gap Estim Creat Clear Calc Estimated GFR POC Glucose 127 H Fasting Glucose Calcium Total Bilirubin AST ALT Alkaline Phosphatase Total Protein Albumin Hep Bs Antigen Hep Bs Antibody Hep B Core Total Ab Hepatitis C Ab (EIA) HIV 1&2 Ab/P24 Ag 4thGn Blood Type Antibody Screen Crossmatch Assessment and Plan (1) Gross hematuria: Status: Acute (2) Urinary tract infection: Status: Acute (3) Hypothermia: Status: Acute (4) Anemia: Status: Acute Plan 76-year-old male presents unresponsive, hypotensive, hypothermic in the backdrop of active urinary sediment.? More cooperative with Zyprexa however somewhat agitated overnight. Additional dose of Zyprexa given 1. Hematuria -CBI with normal saline ... Urine now clear -percutaneous nephrostomy tube draining clear urine since patient more cooperative -check stat labs 2.UTI -ceftriaxone 1 g Q 24 hours.. -culture unreliable from nephrostomy tube.? Will ask ID input 2.Hypothermia -no further hypothermia since 04/04 -follow rectal times 3. Anemia -stable at this time -follow daily CBCs 4. Type 2 diabetes -diet resumed.. .? limited intake -continue lispro coorectional scale. 5. Dementia with agitated features -arousable this a.m. likely secondary to overnight Zyprexa -will hold p.o. dose this a.m. and follow -portable chest done without acute findings Full code Vena dynes boots Will need ongoing hospitalization for treatment Quality Stroke Does the patient have a stroke diagnosis?: No VTE Prior VTE?: No VTE Risk Level:: Medical - moderate - high VTE Device Contraindication: N/A - Device Ordered VTE Drug Contraindication: Treatment Not Indicated
--- NOTE | 2022-04-05 13:00 | MHC.SLORD ---
Speech Language Pathology Order Status: [employer] called and spoke with staff from [facility] in [place]. Per staff, pt was on a chopped diet with thin liquids and pills were given whole before this recent status change. Notified MD, RN, and RD. [employer] attempted to see pt this afternoon for bedside swallow evaluation with MD and RN present. Pt was sleeping. Unable to wake pt with verbal stimuli and sternal rub. Pt is not appropriate for PO trials at this time d/t his lethargic state. Plan to re-attempt evaluation tomorrow.
[2022-04-05] MEDS: cefTRIAXone sodium 1 GM in 0.9 % Sodium Chloride 50 ML IV (15:42)
[2022-04-05 16:26] LABS: Glucose, Whole Blood 97 mg/dL (60-115)
--- NOTE | 2022-04-05 16:59 | MHC.CM.PN ---
Spoke with Pts nephivanna cool dc. He is interested in a tx to [facility]. Dr Nogueira is aware. DP [facility] can offer a bed. DP STR via S.
[2022-04-05] MEDS: 0.9 % Sodium Chloride Flush 3 ML SYRINGE IVFLUSH (17:24)
--- NOTE | 2022-04-05 18:57 | PC.NURSE ---
Increased lethargy noted during the shift. Doctor Mirlande made aware, and had a meeting with patient nephew regarding plan of care. Temp went up to 99.7, annie oshea d/c per MD. Patient unable to take any po med due to increase lethargy. CBI running as ordered, pink light urine output. Nephrostomy tube care provided. 1:1 sitter at bedside for safety. will continue to monitor and treat per plan of care.
[2022-04-05 20:54] LABS: Glucose, Whole Blood 93 mg/dL (60-115)
[2022-04-06] VITALS (10 sets, daily range): BP systolic 117–173; BP diastolic 68–86; PULSE 65–80; RESP 16–22; TEMP 35.9–37; O2SAT 88–99; BMI 29.5
--- NOTE | 2022-04-06 | EEG_ITS ---
Waking background activity consists of a 4 to 5 hertz moderate voltage theta with intermixed 1-2 hertz diffuse delta intermittently. Photic stimulation is without activation. Hyperventilation was omitted. No sleep stages were identified. IMPRESSION: This is a moderately abnormal EEG due to fairly severe diffuse background slowing consistent with a diffuse encephalopathic process. No epileptiform discharges or focal abnormalities are noted. MD KIMMIE Kirkland/MODL / [id number]
--- NOTE | 2022-04-06 00:09 | PC.NURSE ---
Addendum entered by Veena Vann RN 04/06/22 02:05: MD called to see pt, O2 not rising about 88% with oximizer, non rebreather placed by respiratory, chest xray, and ABGs obtained, ABG, & chest xray result seen by MD Donald Addendum entered by Veena Vann RN 04/06/22 02:04: Respiratory called, pt O2 88% 4L NC, pt still unable to handle/clear secretions, oximizer mask placed on pt. Original Note: CBI not flowing out of [place], back flowing out of penis around tube, CBI needed flushing, multiple clots/pink tinged urine flushed from [place], currently flowing in [place] bag with minimal back flow from penis Pt is not able to manage mouth secretions at this time, pt is coughing and drooling, head of bed is upright, frequent suctioning required, MD Donald aware, scopolamine path ordered
[2022-04-06 01:08] LABS: ABG Base Excess -7.6 mmol/L; ABG HCO3 16 mmol/L (22-26); ABG pCO2 27 mmHg (32-45); ABG pH 7.37 (7.35-7.45); ABG pO2 61 mmHg (83-108)
[2022-04-06 01:36] LABS: ABG Refer to POC result
[2022-04-06 06:20] LABS: Basophils Percent Auto 0.2 % (0-2); Hemoglobin 8.6 g/dl (14.0-18.0); Red Cell Distribution Width 18.6 % (11.0-16.0)
[2022-04-06 06:22] LABS: Eosinophils Absolute Auto 0.1 X10*3/uL (0.0-0.4); Eosinophils Percent Auto 1.2 % (0-4); Hematocrit 26.1 % (42.0-52.0); Imm Gran Abs Auto 0.08 X10*3/uL (0.00-0.03); Imm Gran Pct Auto 0.8 % (0.0-0.4); Lymphocytes Absolute Auto 0.6 X10*3/uL (1.2-4.9); Lymphocytes Percent Auto 5.8 % (20-40); Mean Corpuscular Hemoglobin 27.7 pg (27.0-33.0); Mean Corpuscular Volume 84.2 fL (80.0-98.0); Mean Platelet Volume 10.5 fL (9.4-12.4); Monocytes Absolute Auto 0.6 X10*3/uL (0.1-1.2); NRBC Pct Auto 0.3 /100WBC (0.0-0.2); Neutrophils Absolute Auto 8.5 x10*3/uL (2.0-8.3)
[2022-04-06] MEDS: Dextrose 5 % 1,000 ML 100 ML IVCONT (06:27)
[2022-04-06 06:33] LABS: Platelet Count 57 X10*3/uL (160-400); White Blood Count 9.9 X10*3/uL (4.8-10.8)
[2022-04-06 06:40] LABS: Alanine Aminotransferase 33 U/L (0-40); Albumin Level 2.4 g/dL (3.5-5.0); Alkaline Phosphatase 248 U/L (39-117); Anion Gap 12 (12-20); Aspartate Amino Transferase 38 U/L (5-37); Bilirubin Total 0.5 mg/dL (0.0-1.0); Blood Urea Nitrogen 53 mg/dL (9-16); Calcium 7.8 mg/dL (8.4-10.2); Carbon Dioxide 16 mmol/L (22-29); Chloride 111 mmol/L (96-108); Creatinine Clr Calc Pharmacy 22.6; Estimated Glomerular Filt Rate 22; Glucose Fasting 156 mg/dL (60-99); Potassium 4.3 mmol/L (3.3-5.1); Sodium 135 mmol/L (135-145)
[2022-04-06 08:46] LABS: Glucose, Whole Blood 139 mg/dL (60-115)
[2022-04-06 09:34] LABS: Glucose, Whole Blood 150 mg/dL (60-115)
[2022-04-06 09:39] LABS: ABG Base Excess -8.2 mmol/L; ABG HCO3 15 mmol/L (22-26); ABG pCO2 26 mmHg (32-45); ABG pH 7.38 (7.35-7.45); ABG pO2 55 mmHg (83-108)
[2022-04-06 10:21] LABS: ABG Refer to POC result
--- NOTE | 2022-04-06 11:20 | PM.CNPUL ---
History of Present Illness History of Present Illness Consult date: 04/06/22 Requesting physician: Paolo Berry Chief complaint: Hypoxia Narrative: Patient is not cooperative with history of physical exam, information obtained from chart review. 76-year-old gentleman with underlying history of diabetes mellitus, percutaneous nephrostomy for unclear indication, possible liver disease and delirium versus dementia versus psychotic features based on outpatient medications, admitted on 03/31/2022 with alteration of mental status and treated for UTI, further complicated by hematuria from percutaneous nephrostomy, now with worsening hypoxemia requiring escalating noninvasive supplemental oxygen support, but with no evidence of hypercapnia on blood gas. Of note, patient is on irrigation with large volume fluids and his cumulative I/O is 5 L positive for admission. Patient also has significant hypoalbuminemia. Review of Systems Review of Systems: Yes Unobtainable due to mental status PMFSH Social History Social History Household Members: None Housing: Assisted Living Facility Patient Tobacco Use Status: Never used Tobacco service: No Current occupational status: disabled [employer] Allergies Allergy/AdvReac Type Severity Reaction Status Date / Time No Known Allergies Allergy Verified 03/31/22 10:34 Active Medications: Current Medications Amlodipine Besylate (Amlodipine Besylate 10 Mg Tablet) 10 mg PO DAILY [facility]; Protocol Last Admin: 04/06/22 09:04 Dose: Not Given Aspirin (Aspirin 81 Mg Tab.Chew) 81 mg PO DAILY [facility] Last Admin: 04/06/22 09:04 Dose: Not Given Atorvastatin Calcium (Atorvastatin Calcium 40 Mg Tablet) 40 mg PO DAILY [facility] Last Admin: 04/06/22 09:04 Dose: Not Given Dextrose (Dextrose 50 % 25 Gm/50 Ml Syringe) 25 gm IVPUSH Q15M PRN; Protocol PRN Reason: per Hypoglycemia Standing Ord. Ferrous Sulfate (Ferrous Sulfate 324 Mg Tablet.Dr) 324 mg PO DAILY [facility] Last Admin: 04/06/22 09:04 Dose: Not Given Glucose (Glucose Gel 15 Gm Gel..Gram.) 15 gm PO Q15M PRN; Protocol PRN Reason: per Hypoglycemia Standing Ord. Ceftriaxone Sodium 1 gm/ (Sodium Chloride) 50 mls @ 100 mls/hr IV Q24H [facility] Last Infusion: 04/05/22 17:24 Dose: Infused Albumin Human (Kedbumin 25 %) 100 mls @ 100 mls/hr IV Q1H [facility] Stop: 04/06/22 12:59 Insulin Human Lispro (Insulin Lispro 100 Unit/Ml 3 Ml Vial) 0 unit SUBCUT QIDACHS [facility]; Protocol Last Admin: 04/06/22 08:43 Dose: Not Given Melatonin (Melatonin 3 Mg Tablet) 6 mg PO BEDTIME PRN PRN Reason: insomnia Nadolol (Nadolol 20 Mg Tablet) 20 mg PO DAILY [facility]; Protocol Last Admin: 04/06/22 09:05 Dose: Not Given Olanzapine (Olanzapine 5 Mg Tablet) 5 mg PO DAILY [facility] Last Admin: 04/06/22 09:05 Dose: Not Given Olanzapine (Olanzapine 10 Mg Vial) 5 mg IM ONCE PRN PRN Reason: anxiety/restlessness Last Admin: 04/03/22 22:39 Dose: 5 mg Quetiapine Fumarate (Quetiapine Fumarate 25 Mg Tablet) 25 mg PO BID [facility] Last Admin: 04/06/22 09:05 Dose: Not Given Rifaximin (Rifaximin 550 Mg Tablet) 550 mg PO BID [facility] Last Admin: 04/06/22 09:05 Dose: Not Given Sodium Chloride (0.9 % Sodium Chloride Flush 3 Ml Syringe) 3 ml IVFLUSH QSHIFT [facility] Last Admin: 04/06/22 08:02 Dose: Not Given Home Medications Medication Instructions Recorded Confirmed Last Taken Type acetaminophen 325 mg tablet 650 mg PO Q4H PRN Pain 03/31/22 03/31/22 Unknown History amlodipine 10 mg tablet 1 tab PO DAILY 03/31/22 03/31/22 Unknown History aspirin 81 mg chewable tablet 81 mg PO DAILY 03/31/22 03/31/22 Unknown History atorvastatin 40 mg tablet 1 tab PO DAILY 03/31/22 03/31/22 Unknown History clotrimazole 1 % topical cream 1 appl topical BID PRN Rash 03/31/22 03/31/22 Unknown History docusate sodium 100 mg tablet 100 mg PO DAILY 03/31/22 03/31/22 Unknown History dulaglutide 0.75 mg/0.5 mL 0.75 mg subcut WE 03/31/22 03/31/22 Unknown History subcutaneous pen injector (Trulicity) ferrous sulfate 325 mg (65 mg 325 mg PO DAILY 03/31/22 03/31/22 Unknown History iron) tablet insulin glargine-yfgn 100 unit/mL 14 unit subcut DAILY 03/31/22 03/31/22 Unknown History subcutaneous solution insulin lispro 100 unit/mL 0 sliding scale dose subcut QIDACHS 03/31/22 03/31/22 Unknown History subcutaneous solution multivitamin 1 tab PO DAILY 03/31/22 03/31/22 Unknown History nadolol 20 mg tablet 1 tab PO DAILY 03/31/22 03/31/22 Unknown History olanzapine 5 mg tablet 1 tab PO BEDTIME 03/31/22 03/31/22 Unknown History ondansetron HCl 4 mg tablet 1 tab PO Q8H PRN Nausea 03/31/22 03/31/22 Unknown History rifaximin 550 mg tablet (Xifaxan) 1 tab PO BID 03/31/22 03/31/22 Unknown History sennosides 8.6 mg tablet (senna) 8.6 mg PO BEDTIME 03/31/22 03/31/22 Unknown History sodium bicarbonate 650 mg tablet 650 mg PO BID 03/31/22 03/31/22 Unknown History thiamine HCl (vitamin B1) 50 mg 50 mg PO DAILY 03/31/22 03/31/22 Unknown History tablet triamcinolone acetonide 0.1 % 1 applic topical BID PRN Rash 03/31/22 03/31/22 Unknown History topical cream Physical Exam Vital Signs: Vital Signs: Last Vital Signs Temp 96.7 F L 04/06/22 08:00 Pulse 65 04/06/22 08:00 Resp 22 H 04/06/22 08:00 BP 134/78 04/06/22 08:00 Pulse Ox 99 04/06/22 08:00 O2 Del Method 04/06/22 08:00 O2 Flow Rate 12 04/06/22 08:00 Oxygen Flow Rate 4 03/31/22 10:53 BMI result Body Mass Index 29.5 Const: General: no acute distress and lethargic Nutritional Appearance: Edematous Orientation/consciousness: lethargic Eyes: Sclerae: sclerae normal EOM: EOMs intact bilaterally Neck: Neck: Yes no lymphadenopathy, Yes trachea midline and Yes supple Resp: Effort & Inspection: normal respiratory effort and no respiratory distress Auscultation: crackles (Diffuse bilateral) Cardio: Rate: regular rate Rhythm: regular rhythm Heart sounds: no gallops, no murmurs and no rubs GI: Palpation (GI): Soft to palpation and Other GI palpation findings present ( Nontender) Auscultation: normal bowel sounds Extrem: General: No clubbing, No cyanosis and Yes edema (1+ bilateral) Results Laboratory Findings CBC and BMP: 04/06/22 05:51 04/06/22 05:51 ABG, PT/INR, D-dimer: PT/INR, D-dimer PT 12.7 SEC (10.0-13.1) 04/01/22 05:57 INR 1.1 (0.9-1.1) 04/01/22 05:57 Abnormal lab findings: Abnormal Labs 03/31/22 03/31/22 03/31/22 10:38 10:39 11:15 WBC 4.3 L RBC 2.14 L Hgb 5.8 L* Hct 18.0 L* RDW 18.7 H Plt Count 37 L Immature Gran % (Auto) 0.7 H Neut % (Auto) 81.8 H Lymph % (Auto) 11.2 L Lymph # (Auto) 0.5 L Abs Immat Gran (auto) Absolute Neuts (auto) Absolute Nucleated RBC 0.020 H Nucleated RBC % (auto) 0.5 H PT Whole Blood PT 15.7 H INR Whole Blood INR 1.3 H APTT Fibrinogen ABG pCO2 at Pt Temp ABG pO2 at Pt Temp ABG HCO3 Sodium Potassium Chloride Carbon Dioxide BUN Creatinine POC Glucose 151 H Fasting Glucose Calcium AST Alkaline Phosphatase Total Creatine Kinase B-Natriuretic Peptide Total Protein Albumin Urine Protein Urine Blood Ur Leukocyte Esterase Urine RBC Urine WBC Hepatitis C Ab (EIA) Crossmatch 03/31/22 03/31/22 03/31/22 11:15 11:15 12:06 WBC RBC Hgb Hct RDW Plt Count Immature Gran % (Auto) Neut % (Auto) Lymph % (Auto) Lymph # (Auto) Abs Immat Gran (auto) Absolute Neuts (auto) Absolute Nucleated RBC Nucleated RBC % (auto) PT 13.8 H Whole Blood PT INR 1.2 H Whole Blood INR APTT 45.0 H Fibrinogen ABG pCO2 at Pt Temp ABG pO2 at Pt Temp ABG HCO3 Sodium Potassium Chloride 114 H Carbon Dioxide 18 L BUN 82 H Creatinine 2.63 H POC Glucose Fasting Glucose Calcium 7.8 L AST Alkaline Phosphatase Total Creatine Kinase 21 L B-Natriuretic Peptide Total Protein Albumin Urine Protein Urine Blood Ur Leukocyte Esterase Urine RBC Urine WBC Hepatitis C Ab (EIA) Crossmatch See Detail 03/31/22 03/31/22 03/31/22 12:07 14:19 18:00 WBC RBC 2.68 L D Hgb 7.4 L D Hct 22.9 L D RDW 18.5 H Plt Count 44 L Immature Gran % (Auto) 1.7 H Neut % (Auto) 82.4 H Lymph % (Auto) 9.4 L Lymph # (Auto) 0.5 L Abs Immat Gran (auto) 0.09 H Absolute Neuts (auto) Absolute Nucleated RBC 0.020 H Nucleated RBC % (auto) 0.4 H PT Whole Blood PT INR Whole Blood INR APTT Fibrinogen ABG pCO2 at Pt Temp ABG pO2 at Pt Temp ABG HCO3 Sodium Potassium Chloride Carbon Dioxide BUN Creatinine POC Glucose Fasting Glucose Calcium AST Alkaline Phosphatase Total Creatine Kinase B-Natriuretic Peptide Total Protein Albumin Urine Protein 100 (2+) H 300 (3+) H Urine Blood Large (3+) H Large (3+) H Ur Leukocyte Esterase Large (3+) H Large (3+) H Urine RBC >20 H >20 H Urine WBC 21-50 H >50 H Hepatitis C Ab (EIA) Crossmatch 04/01/22 04/01/22 04/01/22 00:03 00:03 04:29 WBC RBC 3.11 L Hgb 8.5 L Hct 25.9 L RDW 17.8 H Plt Count 59 L D Immature Gran % (Auto) 1.3 H Neut % (Auto) 84.6 H Lymph % (Auto) 7.6 L Lymph # (Auto) 0.5 L Abs Immat Gran (auto) 0.08 H Absolute Neuts (auto) Absolute Nucleated RBC 0.030 H Nucleated RBC % (auto) 0.5 H PT Whole Blood PT INR Whole Blood INR APTT Fibrinogen ABG pCO2 at Pt Temp ABG pO2 at Pt Temp ABG HCO3 Sodium Potassium 5.3 H Chloride 118 H Carbon Dioxide 15 L BUN 70 H Creatinine 2.51 H POC Glucose Fasting Glucose Calcium 8.2 L AST Alkaline Phosphatase Total Creatine Kinase B-Natriuretic Peptide 432 H Total Protein Albumin Urine Protein Urine Blood Ur Leukocyte Esterase Urine RBC Urine WBC Hepatitis C Ab (EIA) Crossmatch 04/01/22 04/01/22 04/01/22 04:29 05:57 05:57 WBC RBC 3.02 L Hgb 8.4 L Hct 25.3 L RDW 18.1 H Plt Count 57 L Immature Gran % (Auto) 1.2 H Neut % (Auto) 83.9 H Lymph % (Auto) 7.8 L Lymph # (Auto) 0.5 L Abs Immat Gran (auto) 0.07 H Absolute Neuts (auto) Absolute Nucleated RBC 0.040 H Nucleated RBC % (auto) 0.7 H PT Whole Blood PT INR Whole Blood INR APTT Fibrinogen > 700 H ABG pCO2 at Pt Temp ABG pO2 at Pt Temp ABG HCO3 Sodium Potassium 5.3 H Chloride 119 H Carbon Dioxide 16 L BUN 67 H Creatinine 2.44 H POC Glucose Fasting Glucose Calcium 8.0 L AST Alkaline Phosphatase 212 H Total Creatine Kinase B-Natriuretic Peptide Total Protein 5.4 L Albumin 2.6 L Urine Protein Urine Blood Ur Leukocyte Esterase Urine RBC Urine WBC Hepatitis C Ab (EIA) Crossmatch 04/01/22 04/02/22 04/02/22 15:26 01:08 05:48 WBC RBC 3.14 L 3.10 L Hgb 8.8 L 8.6 L Hct 26.5 L 26.5 L RDW 18.6 H 18.6 H Plt Count 49 L 54 L Immature Gran % (Auto) 1.0 H 0.9 H Neut % (Auto) 81.3 H 81.5 H Lymph % (Auto) 8.5 L 8.2 L Lymph # (Auto) 0.5 L 0.5 L Abs Immat Gran (auto) 0.06 H 0.05 H Absolute Neuts (auto) Absolute Nucleated RBC 0.020 H Nucleated RBC % (auto) 0.3 H PT Whole Blood PT INR Whole Blood INR APTT Fibrinogen ABG pCO2 at Pt Temp ABG pO2 at Pt Temp ABG HCO3 Sodium Potassium Chloride Carbon Dioxide BUN Creatinine POC Glucose 116 H Fasting Glucose Calcium AST Alkaline Phosphatase Total Creatine Kinase B-Natriuretic Peptide Total Protein Albumin Urine Protein Urine Blood Ur Leukocyte Esterase Urine RBC Urine WBC Hepatitis C Ab (EIA) Crossmatch 04/02/22 04/02/22 04/02/22 05:48 11:38 16:39 WBC RBC Hgb Hct RDW Plt Count Immature Gran % (Auto) Neut % (Auto) Lymph % (Auto) Lymph # (Auto) Abs Immat Gran (auto) Absolute Neuts (auto) Absolute Nucleated RBC Nucleated RBC % (auto) PT Whole Blood PT INR Whole Blood INR APTT Fibrinogen ABG pCO2 at Pt Temp ABG pO2 at Pt Temp ABG HCO3 Sodium 147 H Potassium Chloride 121 H Carbon Dioxide 16 L BUN 57 H Creatinine 2.55 H POC Glucose 116 H 135 H Fasting Glucose 131 H Calcium AST Alkaline Phosphatase 209 H Total Creatine Kinase B-Natriuretic Peptide Total Protein 5.4 L Albumin 2.6 L Urine Protein Urine Blood Ur Leukocyte Esterase Urine RBC Urine WBC Hepatitis C Ab (EIA) Crossmatch 04/03/22 04/03/22 04/03/22 00:17 00:31 06:20 WBC RBC 3.43 L 3.33 L Hgb 9.5 L 9.2 L Hct 29.2 L 28.2 L RDW 18.9 H 18.4 H Plt Count 61 L 60 L Immature Gran % (Auto) 1.5 H 0.7 H Neut % (Auto) 79.6 H 80.1 H Lymph % (Auto) 9.6 L 10.2 L Lymph # (Auto) 0.7 L 0.6 L Abs Immat Gran (auto) 0.10 H 0.04 H Absolute Neuts (auto) Absolute Nucleated RBC 0.020 H 0.020 H Nucleated RBC % (auto) 0.3 H 0.4 H PT Whole Blood PT INR Whole Blood INR APTT Fibrinogen ABG pCO2 at Pt Temp ABG pO2 at Pt Temp ABG HCO3 Sodium Potassium Chloride Carbon Dioxide BUN Creatinine POC Glucose 119 H Fasting Glucose Calcium AST Alkaline Phosphatase Total Creatine Kinase B-Natriuretic Peptide Total Protein Albumin Urine Protein Urine Blood Ur Leukocyte Esterase Urine RBC Urine WBC Hepatitis C Ab (EIA) Crossmatch 04/03/22 04/03/22 04/03/22 06:20 08:38 11:33 WBC RBC Hgb Hct RDW Plt Count Immature Gran % (Auto) Neut % (Auto) Lymph % (Auto) Lymph # (Auto) Abs Immat Gran (auto) Absolute Neuts (auto) Absolute Nucleated RBC Nucleated RBC % (auto) PT Whole Blood PT INR Whole Blood INR APTT Fibrinogen ABG pCO2 at Pt Temp ABG pO2 at Pt Temp ABG HCO3 Sodium 147 H Potassium Chloride 121 H Carbon Dioxide 17 L BUN 56 H Creatinine 2.30 H POC Glucose 137 H 153 H Fasting Glucose 129 H Calcium AST Alkaline Phosphatase 214 H Total Creatine Kinase B-Natriuretic Peptide Total Protein 5.7 L Albumin 2.7 L Urine Protein Urine Blood Ur Leukocyte Esterase Urine RBC Urine WBC Hepatitis C Ab (EIA) Crossmatch 04/03/22 04/04/22 04/04/22 19:35 07:38 08:43 WBC RBC 2.88 L Hgb 7.9 L Hct 24.0 L RDW 18.3 H Plt Count 45 L Immature Gran % (Auto) 0.5 H Neut % (Auto) 78.5 H Lymph % (Auto) 11.8 L Lymph # (Auto) 0.7 L Abs Immat Gran (auto) Absolute Neuts (auto) Absolute Nucleated RBC 0.020 H Nucleated RBC % (auto) 0.4 H PT Whole Blood PT INR Whole Blood INR APTT Fibrinogen ABG pCO2 at Pt Temp ABG pO2 at Pt Temp ABG HCO3 Sodium Potassium Chloride Carbon Dioxide BUN Creatinine POC Glucose 152 H 134 H Fasting Glucose Calcium AST Alkaline Phosphatase Total Creatine Kinase B-Natriuretic Peptide Total Protein Albumin Urine Protein Urine Blood Ur Leukocyte Esterase Urine RBC Urine WBC Hepatitis C Ab (EIA) Crossmatch 04/04/22 04/04/22 04/04/22 08:43 08:43 10:14 WBC RBC Hgb Hct RDW Plt Count Immature Gran % (Auto) Neut % (Auto) Lymph % (Auto) Lymph # (Auto) Abs Immat Gran (auto) Absolute Neuts (auto) Absolute Nucleated RBC Nucleated RBC % (auto) PT Whole Blood PT INR Whole Blood INR APTT Fibrinogen ABG pCO2 at Pt Temp ABG pO2 at Pt Temp ABG HCO3 Sodium Potassium Chloride 116 H Carbon Dioxide 17 L BUN 52 H Creatinine 2.27 H POC Glucose Fasting Glucose 147 H Calcium AST 39 H Alkaline Phosphatase 213 H Total Creatine Kinase B-Natriuretic Peptide Total Protein 5.1 L Albumin 2.5 L Urine Protein Urine Blood Ur Leukocyte Esterase Urine RBC Urine WBC Hepatitis C Ab (EIA) Reactive H Crossmatch See Detail 04/04/22 04/04/22 04/05/22 11:23 16:50 05:42 WBC RBC 2.87 L Hgb 8.2 L Hct 24.4 L RDW 18.2 H Plt Count 43 L Immature Gran % (Auto) Neut % (Auto) 80.7 H Lymph % (Auto) 10.3 L Lymph # (Auto) 0.7 L Abs Immat Gran (auto) Absolute Neuts (auto) Absolute Nucleated RBC 0.030 H Nucleated RBC % (auto) 0.4 H PT Whole Blood PT INR Whole Blood INR APTT Fibrinogen ABG pCO2 at Pt Temp ABG pO2 at Pt Temp ABG HCO3 Sodium Potassium Chloride Carbon Dioxide BUN Creatinine POC Glucose 181 H 128 H Fasting Glucose Calcium AST Alkaline Phosphatase Total Creatine Kinase B-Natriuretic Peptide Total Protein Albumin Urine Protein Urine Blood Ur Leukocyte Esterase Urine RBC Urine WBC Hepatitis C Ab (EIA) Crossmatch 04/05/22 04/05/22 04/06/22 05:42 11:10 01:01 WBC RBC Hgb Hct RDW Plt Count Immature Gran % (Auto) Neut % (Auto) Lymph % (Auto) Lymph # (Auto) Abs Immat Gran (auto) Absolute Neuts (auto) Absolute Nucleated RBC Nucleated RBC % (auto) PT Whole Blood PT INR Whole Blood INR APTT Fibrinogen ABG pCO2 at Pt Temp 27 L ABG pO2 at Pt Temp 61 L ABG HCO3 16 L Sodium Potassium Chloride 113 H Carbon Dioxide 17 L BUN 52 H Creatinine 2.46 H POC Glucose 127 H Fasting Glucose 115 H Calcium 7.9 L AST Alkaline Phosphatase 202 H Total Creatine Kinase B-Natriuretic Peptide Total Protein 4.9 L Albumin 2.3 L Urine Protein Urine Blood Ur Leukocyte Esterase Urine RBC Urine WBC Hepatitis C Ab (EIA) Crossmatch 04/06/22 04/06/22 04/06/22 05:51 05:51 08:42 WBC RBC 3.10 L Hgb 8.6 L Hct 26.1 L RDW 18.6 H Plt Count 57 L D Immature Gran % (Auto) 0.8 H Neut % (Auto) 86.0 H Lymph % (Auto) 5.8 L Lymph # (Auto) 0.6 L Abs Immat Gran (auto) 0.08 H Absolute Neuts (auto) 8.5 H Absolute Nucleated RBC 0.030 H Nucleated RBC % (auto) 0.3 H PT Whole Blood PT INR Whole Blood INR APTT Fibrinogen ABG pCO2 at Pt Temp ABG pO2 at Pt Temp ABG HCO3 Sodium Potassium Chloride 111 H Carbon Dioxide 16 L BUN 53 H Creatinine 2.76 H POC Glucose 139 H Fasting Glucose 156 H Calcium 7.8 L AST 38 H Alkaline Phosphatase 248 H Total Creatine Kinase B-Natriuretic Peptide Total Protein 5.0 L Albumin 2.4 L Urine Protein Urine Blood Ur Leukocyte Esterase Urine RBC Urine WBC Hepatitis C Ab (EIA) Crossmatch 04/06/22 04/06/22 09:30 09:34 WBC RBC Hgb Hct RDW Plt Count Immature Gran % (Auto) Neut % (Auto) Lymph % (Auto) Lymph # (Auto) Abs Immat Gran (auto) Absolute Neuts (auto) Absolute Nucleated RBC Nucleated RBC % (auto) PT Whole Blood PT INR Whole Blood INR APTT Fibrinogen ABG pCO2 at Pt Temp 26 L ABG pO2 at Pt Temp 55 L ABG HCO3 15 L Sodium Potassium Chloride Carbon Dioxide BUN Creatinine POC Glucose 150 H Fasting Glucose Calcium AST Alkaline Phosphatase Total Creatine Kinase B-Natriuretic Peptide Total Protein Albumin Urine Protein Urine Blood Ur Leukocyte Esterase Urine RBC Urine WBC Hepatitis C Ab (EIA) Crossmatch Microbiology: Microbiology 03/31/22 15:07 Blood - Venous Blood Culture - Final No growth after 5 days. 03/31/22 15:07 Blood - Venous Blood Culture - Final No growth after 5 days. 03/31/22 00:00 Urine Other - Nephrostomy Urine Culture - Final Staphylococcus cohnii ssp urea 03/31/22 15:02 Blood - Venous Blood Culture - Final 03/31/22 15:02 Blood - Venous Blood Culture - Final Assessment and Plan (1) Acute respiratory failure with hypoxia: Status: Acute Plan Impression: 76-year-old gentleman admitted with alteration of mental status and treated for urinary tract infection, further complicated by hematuria from nephrostomy requiring large volume irrigation, now with development of progressive hypoxemia, no hypercapnia, with significant hypoalbuminemia, and significantly positive fluid balance. Likely a underlying etiology of his hypoxemia UE with development of pulmonary edema, though he does have elevated D-dimer and pulmonary embolism is also possible. Recommendations: Start on diuretic and colloidal support, Lasix 60 mg IV push and 50 g of albumin ordered. Needs assessment of underlying cardiac function, 2D echocardiogram is ordered. Consider minimization of IV fluid intake. Will check bilateral lower extremity Dopplers as a source for possible pulmonary embolism. However, if lower extremity Dopplers are negative and there is no significant improvement in hypoxia with diuresis, he may require V/Q study to rule out pulmonary embolism, as CT angiogram is contraindicated with his worsening renal function. Procedures Date of Service Date of Service: 04/06/22
[2022-04-06] MEDS: Albumin Human 25 % 100 ML IV ×2 (11:28→12:21)
[2022-04-06] MEDS: Furosemide 100 MG/10 ML VIAL 60 MG IVPUSH (11:28)
[2022-04-06 11:40] LABS: Glucose, Whole Blood 159 mg/dL (60-115)
[2022-04-06 12:06] LABS: Ammonia 38 umol/L (13-55)
[2022-04-06 13:10] LABS: Magnesium 1.7 mg/dL (1.6-2.6); Phosphorus 5.1 mg/dL (2.7-4.5)
--- NOTE | 2022-04-06 13:27 | MHC.CLN ---
RE: CONSULT PT LETHARGIC WITH CHANGE IN CONDITION, CURRENTLY NPO AND EXPECTED TO BE >3DAYS WILL NEED TPN FOR NUTRITION SUPPORT AT THIS TIME. PT WAS NPO FROM 03/31-04/03-DIET ADVANCED TO REGULAR BUT PO REMAINED POOR PT IS CURRENTLY NPO RECOMMEND PPN D10AA4.25 AT 40ML/HR TO PROVIDE 490KCALS, 41G PROTEIN REPLETE LYTES NEEDED DISCUSSED WITH PHARMACY SEE ALSO FULL CLINICAL NUTRITION ASSESSMENT
--- NOTE | 2022-04-06 14:10 | MHC.SLORD ---
Speech Language Pathology Order Status: Attempted X 2 to see patient for clinical swallow assessment. Noted new onset medical issues in chart. Advised by nursing this p.m. that patient will not be appropriate/awake enough today to bee seen for assessment. Will continue to attempt assessment 04/07.
--- NOTE | 2022-04-06 14:13 | PC.NURSE ---
At start of shift pt was noted to be lethargic, md informed, interventioned performed. family was updated by this RN and MD. pt code status changed by HCP. In the afternoon pt exp increased lethargy/somnolent requiring frequent sternal rubs to awaken and desatting, md was informed, pt was deep suctioned and O2 sat returned to 100%. Pt was placed on jerry hugger this AM for low temps, jerry hugger turned off around noon d/t temp being 99 oral. nephro tube flushed as ordered. sitter at bedside earlier today, d/c'ed d/t pt status. poc maintained. per md, PPN to be started. informed of all abnormal results and findings.
--- NOTE | 2022-04-06 14:31 | W.PM.IDCN ---
History of Present Illness Data of Consult Service Date: 04/06/22 Requesting physician: Paolo Berry Primary Care Provider: Martha Mckeon MD [facility] Reason for consult: possible urinary infection He presents with confusion and encephalopathy. He has urine culture staph cohnii. He was somnolent on arrival and started on Ceftriaxone ,now day 7. He has been pulling at [place] catheter and has hematuria. Review of Systems Review of Systems: Yes Unobtainable due to mental condition [facility] Family History Family history: reviewed and not pertinent Social History Social History Household Members: None Housing: Assisted Living Facility Patient Tobacco Use Status: Never used Tobacco service: No Current occupational status: disabled Meds Allergies Allergy/AdvReac Type Severity Reaction Status Date / Time No Known Allergies Allergy Verified 03/31/22 10:34 Active Medications: Current Medications Amlodipine Besylate (Amlodipine Besylate 10 Mg Tablet) 10 mg PO DAILY [facility]; Protocol Last Admin: 04/06/22 09:04 Dose: Not Given Aspirin (Aspirin 81 Mg Tab.Chew) 81 mg PO DAILY [facility] Last Admin: 04/06/22 09:04 Dose: Not Given Atorvastatin Calcium (Atorvastatin Calcium 40 Mg Tablet) 40 mg PO DAILY [facility] Last Admin: 04/06/22 09:04 Dose: Not Given Dextrose (Dextrose 50 % 25 Gm/50 Ml Syringe) 25 gm IVPUSH Q15M PRN; Protocol PRN Reason: per Hypoglycemia Standing Ord. Ferrous Sulfate (Ferrous Sulfate 324 Mg Tablet.Dr) 324 mg PO DAILY [facility] Last Admin: 04/06/22 09:04 Dose: Not Given Glucose (Glucose Gel 15 Gm Gel..Gram.) 15 gm PO Q15M PRN; Protocol PRN Reason: per Hypoglycemia Standing Ord. Ceftriaxone Sodium 1 gm/ (Sodium Chloride) 50 mls @ 100 mls/hr IV Q24H [facility] Last Infusion: 04/05/22 17:24 Dose: Infused Magnesium Sulfate 5 meq/Calcium Gluconate 4.65 meq/Sodium Acetate 35 meq/Multivitamins 10.5 ml/ Trace Metals 1 ml/ Amino Acids/Electrolytes/Dextrose 960 mls @ 40 mls/hr IVCONT DAILY@1800 [facility] Stop: 04/07/22 17:59 Metronidazole (Flagyl) 500 mg in 100 mls @ 100 mls/hr IV Q8H [facility] Insulin Human Lispro (Insulin Lispro 100 Unit/Ml 3 Ml Vial) 0 unit SUBCUT QIDACHS [facility]; Protocol Last Admin: 04/06/22 11:45 Dose: Not Given Melatonin (Melatonin 3 Mg Tablet) 6 mg PO BEDTIME PRN PRN Reason: insomnia Nadolol (Nadolol 20 Mg Tablet) 20 mg PO DAILY [facility]; Protocol Last Admin: 04/06/22 09:05 Dose: Not Given Olanzapine (Olanzapine 5 Mg Tablet) 5 mg PO DAILY [facility] Last Admin: 04/06/22 09:05 Dose: Not Given Olanzapine (Olanzapine 10 Mg Vial) 5 mg IM ONCE PRN PRN Reason: anxiety/restlessness Last Admin: 04/03/22 22:39 Dose: 5 mg Quetiapine Fumarate (Quetiapine Fumarate 25 Mg Tablet) 25 mg PO BID [facility] Last Admin: 04/06/22 09:05 Dose: Not Given Rifaximin (Rifaximin 550 Mg Tablet) 550 mg PO BID [facility] Last Admin: 04/06/22 09:05 Dose: Not Given Sodium Chloride (0.9 % Sodium Chloride Flush 3 Ml Syringe) 3 ml IVFLUSH QSHIFT [facility] Last Admin: 04/06/22 08:02 Dose: Not Given Home Medications Medication Instructions Recorded Confirmed Last Taken Type acetaminophen 325 mg tablet 650 mg PO Q4H PRN Pain 03/31/22 03/31/22 Unknown History amlodipine 10 mg tablet 1 tab PO DAILY 03/31/22 03/31/22 Unknown History aspirin 81 mg chewable tablet 81 mg PO DAILY 03/31/22 03/31/22 Unknown History atorvastatin 40 mg tablet 1 tab PO DAILY 03/31/22 03/31/22 Unknown History clotrimazole 1 % topical cream 1 appl topical BID PRN Rash 03/31/22 03/31/22 Unknown History docusate sodium 100 mg tablet 100 mg PO DAILY 03/31/22 03/31/22 Unknown History dulaglutide 0.75 mg/0.5 mL 0.75 mg subcut WE 03/31/22 03/31/22 Unknown History subcutaneous pen injector (Trulicity) ferrous sulfate 325 mg (65 mg 325 mg PO DAILY 03/31/22 03/31/22 Unknown History iron) tablet insulin glargine-yfgn 100 unit/mL 14 unit subcut DAILY 03/31/22 03/31/22 Unknown History subcutaneous solution insulin lispro 100 unit/mL 0 sliding scale dose subcut QIDACHS 03/31/22 03/31/22 Unknown History subcutaneous solution multivitamin 1 tab PO DAILY 03/31/22 03/31/22 Unknown History nadolol 20 mg tablet 1 tab PO DAILY 03/31/22 03/31/22 Unknown History olanzapine 5 mg tablet 1 tab PO BEDTIME 03/31/22 03/31/22 Unknown History ondansetron HCl 4 mg tablet 1 tab PO Q8H PRN Nausea 03/31/22 03/31/22 Unknown History rifaximin 550 mg tablet (Xifaxan) 1 tab PO BID 03/31/22 03/31/22 Unknown History sennosides 8.6 mg tablet (senna) 8.6 mg PO BEDTIME 03/31/22 03/31/22 Unknown History sodium bicarbonate 650 mg tablet 650 mg PO BID 03/31/22 03/31/22 Unknown History thiamine HCl (vitamin B1) 50 mg 50 mg PO DAILY 03/31/22 03/31/22 Unknown History tablet triamcinolone acetonide 0.1 % 1 applic topical BID PRN Rash 03/31/22 03/31/22 Unknown History topical cream Physical Exam Vital Signs: Vital Signs: Last Vital Signs Temp 96.7 F L 04/06/22 08:00 Pulse 80 04/06/22 12:00 Resp 22 H 04/06/22 12:00 BP 124/83 04/06/22 12:00 Pulse Ox 92 04/06/22 12:00 O2 Del Method 04/06/22 12:00 O2 Flow Rate 6 04/06/22 12:00 Oxygen Flow Rate 4 03/31/22 10:53 BMI result Body Mass Index 29.5 Psych: Other: somnolence Results Labs CBC & Chem 7: 04/06/22 05:51 04/06/22 05:51 Labs: Short CBC 04/06/22 Range/Units 05:51 WBC 9.9 (4.8-10.8) X10*3/uL Hgb 8.6 L (14.0-18.0) g/dl Hct 26.1 L (42.0-52.0) % Plt Count 57 L D (160-400) X10*3/uL BMP 04/06/22 05:51 Sodium 135 Potassium 4.3 Chloride 111 H Carbon Dioxide 16 L BUN 53 H Creatinine 2.76 H Calcium 7.8 L Liver Function 04/06/22 Range/Units 05:51 Total Bilirubin 0.5 (0.0-1.0) mg/dL AST 38 H (5-37) U/L ALT 33 (0-40) U/L Alkaline Phosphatase 248 H (39-117) U/L Albumin 2.4 L (3.5-5.0) g/dL Microbiology Microbiology Results: Microbiology 03/31/22 15:07 Blood - Venous Blood Culture - Final No growth after 5 days. 03/31/22 15:07 Blood - Venous Blood Culture - Final No growth after 5 days. 03/31/22 00:00 Urine Other - Nephrostomy Urine Culture - Final Staphylococcus cohnii ssp urea 03/31/22 15:02 Blood - Venous Blood Culture - Final 03/31/22 15:02 Blood - Venous Blood Culture - Final Assessment and Plan (1) Acute respiratory failure with hypoxia: Status: Acute (2) Gross hematuria: Status: Acute (3) Urinary tract infection: Status: Acute Staph cohni is likely not true organism. He has encephalopathy and has been on antibiotics for seven days Hematuria may be due to pulling [place]. There is no fever or leukocytosis. Plan Stop antibiotics at this time/
[2022-04-06] MEDS: metroNIDAZOLE/NS 500 MG/100 ML PIGGYBACK 100 MG IV ×2 (15:19→21:46)
--- NOTE | 2022-04-06 15:20 | PM.PSYCN ---
History of Present Illness Date of Service: 04/06/2022 Chief Complaint: Hypoxia Reason for Consult: medication Requesting physician: Paolo Berry Discussed with referring provider: Yes Sources of Information: patient interviewed and chart reviewed HPI Narrative: Claudio is a 76 y.o. male who carries a dx of schizophrenia. Hx of CHF, dementia, Type 2 DM. [place] [facility] [place] his [facility]F with a chief complaint of unresponsiveness. Found hypotensive, hypothermic. Hypoxic, acute respitatory failure.?Head CT showed no acute intracranial process. MRI of head showed no acute intracranial abnormality. He was anemic. Sepsis protocol initiated. Dx with toxic metabolic encephalopathy. Has poor PO intake, metabolic abnormalities, possible failure to thrive. Seen by ICU, ultimately admitted to telemetry for further workup. Had UTI, now resolved. Psych consult placed due to pt presenting with?dementia with agitated features, was given Zyprexa 5 mg HS however this caused morning sedation. Pt is unresponsive when attempted to interview, sedated. Per RN note, pt was lethargic, somnolent, required frequent sternal rubs to awaken. I spoke with pt?s nephew who is his HCP. He says pt has been maintained on Zyprexa for almost twenty years for primary dx of schizophrenia. Says at baseline he is higher functioning i.e. talking, active, ?as long as he?s on meds he?s pretty good.? Says pt?s VNA has told him that when the pt is off baseline he is paranoid and this typically occurs when he has a UTI or other medical condition. Pt?s nephew says during this admission he has talked to the pt and he is paranoid, ?thinks people are trying to kill him,? believes this is why he is not accepting medication. Says he has not done well with Haldol in the past and has been able to be maintained on low dose Zyprexa. Medical Evaluation Reviewed: Yes Diagnostics Vital Signs (24Hr): Vital Signs - 24 hr 04/05/22 19:24 04/05/22 23:19 04/06/22 01:00 Temperature 98.1 F 97.8 F Pulse Rate 83 76 Respiratory Rate 16 18 Blood Pressure 137/71 138/79 Pulse Oximetry 87 L 94 90 L Oxygen Delivery Method Nasal Cannula Nasal Cannula Oxymask Oxygen Flow Rate 3 3 9 04/06/22 01:10 04/06/22 01:58 04/06/22 04:00 Temperature Pulse Rate 74 Respiratory Rate 16 Blood Pressure 173/86 H Pulse Oximetry 92 95 95 Oxygen Delivery Method Non-Rebreather Mask Non-Rebreather Mask Non-Rebreather Mask Oxygen Flow Rate 12 12 12 04/06/22 04:00 04/06/22 08:00 04/06/22 12:00 Temperature 98.6 F 96.7 F L Pulse Rate 65 80 Respiratory Rate 22 H 22 H Blood Pressure 134/78 124/83 Pulse Oximetry 99 92 Oxygen Delivery Method Non-Rebreather Mask Nasal Cannula Oxygen Flow Rate 12 6 BMI result Body Mass Index 29.5 Labs Results: 04/06/22 05:51 04/06/22 05:51 Labs: Laboratory Results - last 48 hr 03/31/22 04/04/22 04/04/22 11:15 08:43 10:14 WBC RBC Hgb Hct MCV MCH MCHC RDW Plt Count MPV Immature Gran % (Auto) Neut % (Auto) Lymph % (Auto) [place] % (Auto) Eos % (Auto) Baso % (Auto) Lymph # (Auto) [place] # (Auto) Eos # (Auto) Baso # (Auto) Abs Immat Gran (auto) Absolute Neuts (auto) Absolute Nucleated RBC Nucleated RBC % (auto) Smear Path Review SEE NOTE O2 Saturation ABG pH at Pt Temp ABG pCO2 at Pt Temp ABG pO2 at Pt Temp ABG HCO3 ABG Base Excess (Actual) Sodium Potassium Chloride Carbon Dioxide Anion Gap BUN Creatinine Estim Creat Clear Calc Estimated GFR POC Glucose Fasting Glucose Calcium Phosphorus Magnesium Total Bilirubin AST ALT Alkaline Phosphatase Ammonia Total Protein Albumin Hep Bs Antigen Negative Hep Bs Antibody NONREACTIVE Hep B Core Total Ab Reactive Hepatitis C Ab (EIA) Reactive H HIV 1&2 Ab/P24 Ag 4thGn Nonreactive Crossmatch See Detail 04/04/22 04/04/22 04/05/22 16:50 20:22 05:42 WBC 7.0 RBC 2.87 L Hgb 8.2 L Hct 24.4 L MCV 85.0 MCH 28.6 MCHC 33.6 RDW 18.2 H Plt Count 43 L MPV 10.2 Immature Gran % (Auto) 0.4 Neut % (Auto) 80.7 H Lymph % (Auto) 10.3 L [place] % (Auto) 7.2 Eos % (Auto) 1.3 Baso % (Auto) 0.1 Lymph # (Auto) 0.7 L [place] # (Auto) 0.5 Eos # (Auto) 0.1 Baso # (Auto) 0.0 Abs Immat Gran (auto) 0.03 Absolute Neuts (auto) 5.6 Absolute Nucleated RBC 0.030 H Nucleated RBC % (auto) 0.4 H Smear Path Review O2 Saturation ABG pH at Pt Temp ABG pCO2 at Pt Temp ABG pO2 at Pt Temp ABG HCO3 ABG Base Excess (Actual) Sodium Potassium Chloride Carbon Dioxide Anion Gap BUN Creatinine Estim Creat Clear Calc Estimated GFR POC Glucose 128 H 87 Fasting Glucose Calcium Phosphorus Magnesium Total Bilirubin AST ALT Alkaline Phosphatase Ammonia Total Protein Albumin Hep Bs Antigen Hep Bs Antibody Hep B Core Total Ab Hepatitis C Ab (EIA) HIV 1&2 Ab/P24 Ag 4thGn Crossmatch 04/05/22 04/05/22 04/05/22 05:42 07:15 11:10 WBC RBC Hgb Hct MCV MCH MCHC RDW Plt Count MPV Immature Gran % (Auto) Neut % (Auto) Lymph % (Auto) [place] % (Auto) Eos % (Auto) Baso % (Auto) Lymph # (Auto) [place] # (Auto) Eos # (Auto) Baso # (Auto) Abs Immat Gran (auto) Absolute Neuts (auto) Absolute Nucleated RBC Nucleated RBC % (auto) Smear Path Review O2 Saturation ABG pH at Pt Temp ABG pCO2 at Pt Temp ABG pO2 at Pt Temp ABG HCO3 ABG Base Excess (Actual) Sodium 137 Potassium 4.6 Chloride 113 H Carbon Dioxide 17 L Anion Gap 12 BUN 52 H Creatinine 2.46 H Estim Creat Clear Calc 25.4 Estimated GFR 26 POC Glucose 114 127 H Fasting Glucose 115 H Calcium 7.9 L Phosphorus Magnesium Total Bilirubin 0.4 AST 29 ALT 31 Alkaline Phosphatase 202 H Ammonia Total Protein 4.9 L Albumin 2.3 L Hep Bs Antigen Hep Bs Antibody Hep B Core Total Ab Hepatitis C Ab (EIA) HIV 1&2 Ab/P24 Ag 4thGn Crossmatch 04/05/22 04/05/22 04/06/22 16:13 20:44 01:01 WBC RBC Hgb Hct MCV MCH MCHC RDW Plt Count MPV Immature Gran % (Auto) Neut % (Auto) Lymph % (Auto) [place] % (Auto) Eos % (Auto) Baso % (Auto) Lymph # (Auto) [place] # (Auto) Eos # (Auto) Baso # (Auto) Abs Immat Gran (auto) Absolute Neuts (auto) Absolute Nucleated RBC Nucleated RBC % (auto) Smear Path Review O2 Saturation 88.0 ABG pH at Pt Temp 7.37 ABG pCO2 at Pt Temp 27 L ABG pO2 at Pt Temp 61 L ABG HCO3 16 L ABG Base Excess (Actual) -7.6 Sodium Potassium Chloride Carbon Dioxide Anion Gap BUN Creatinine Estim Creat Clear Calc Estimated GFR POC Glucose 97 93 Fasting Glucose Calcium Phosphorus Magnesium Total Bilirubin AST ALT Alkaline Phosphatase Ammonia Total Protein Albumin Hep Bs Antigen Hep Bs Antibody Hep B Core Total Ab Hepatitis C Ab (EIA) HIV 1&2 Ab/P24 Ag 4thGn Crossmatch 04/06/22 04/06/22 04/06/22 05:51 05:51 08:42 WBC 9.9 RBC 3.10 L Hgb 8.6 L Hct 26.1 L MCV 84.2 MCH 27.7 MCHC 33.0 RDW 18.6 H Plt Count 57 L D MPV 10.5 Immature Gran % (Auto) 0.8 H Neut % (Auto) 86.0 H Lymph % (Auto) 5.8 L [place] % (Auto) 6.0 Eos % (Auto) 1.2 Baso % (Auto) 0.2 Lymph # (Auto) 0.6 L [place] # (Auto) 0.6 Eos # (Auto) 0.1 Baso # (Auto) 0.0 Abs Immat Gran (auto) 0.08 H Absolute Neuts (auto) 8.5 H Absolute Nucleated RBC 0.030 H Nucleated RBC % (auto) 0.3 H Smear Path Review O2 Saturation ABG pH at Pt Temp ABG pCO2 at Pt Temp ABG pO2 at Pt Temp ABG HCO3 ABG Base Excess (Actual) Sodium 135 Potassium 4.3 Chloride 111 H Carbon Dioxide 16 L Anion Gap 12 BUN 53 H Creatinine 2.76 H Estim Creat Clear Calc 22.6 Estimated GFR 22 POC Glucose 139 H Fasting Glucose 156 H Calcium 7.8 L Phosphorus 5.1 H Magnesium 1.7 Total Bilirubin 0.5 AST 38 H ALT 33 Alkaline Phosphatase 248 H Ammonia Total Protein 5.0 L Albumin 2.4 L Hep Bs Antigen Hep Bs Antibody Hep B Core Total Ab Hepatitis C Ab (EIA) HIV 1&2 Ab/P24 Ag 4thGn Crossmatch 04/06/22 04/06/22 04/06/22 09:30 09:34 11:37 WBC RBC Hgb Hct MCV MCH MCHC RDW Plt Count MPV Immature Gran % (Auto) Neut % (Auto) Lymph % (Auto) [place] % (Auto) Eos % (Auto) Baso % (Auto) Lymph # (Auto) [place] # (Auto) Eos # (Auto) Baso # (Auto) Abs Immat Gran (auto) Absolute Neuts (auto) Absolute Nucleated RBC Nucleated RBC % (auto) Smear Path Review O2 Saturation 80.0 ABG pH at Pt Temp 7.38 ABG pCO2 at Pt Temp 26 L ABG pO2 at Pt Temp 55 L ABG HCO3 15 L ABG Base Excess (Actual) -8.2 Sodium Potassium Chloride Carbon Dioxide Anion Gap BUN Creatinine Estim Creat Clear Calc Estimated GFR POC Glucose 150 H 159 H Fasting Glucose Calcium Phosphorus Magnesium Total Bilirubin AST ALT Alkaline Phosphatase Ammonia Total Protein Albumin Hep Bs Antigen Hep Bs Antibody Hep B Core Total Ab Hepatitis C Ab (EIA) HIV 1&2 Ab/P24 Ag 4thGn Crossmatch 04/06/22 11:51 WBC RBC Hgb Hct MCV MCH MCHC RDW Plt Count MPV Immature Gran % (Auto) Neut % (Auto) Lymph % (Auto) [place] % (Auto) Eos % (Auto) Baso % (Auto) Lymph # (Auto) [place] # (Auto) Eos # (Auto) Baso # (Auto) Abs Immat Gran (auto) Absolute Neuts (auto) Absolute Nucleated RBC Nucleated RBC % (auto) Smear Path Review O2 Saturation ABG pH at Pt Temp ABG pCO2 at Pt Temp ABG pO2 at Pt Temp ABG HCO3 ABG Base Excess (Actual) Sodium Potassium Chloride Carbon Dioxide Anion Gap BUN Creatinine Estim Creat Clear Calc Estimated GFR POC Glucose Fasting Glucose Calcium Phosphorus Magnesium Total Bilirubin AST ALT Alkaline Phosphatase Ammonia 38 Total Protein Albumin Hep Bs Antigen Hep Bs Antibody Hep B Core Total Ab Hepatitis C Ab (EIA) HIV 1&2 Ab/P24 Ag 4thGn Crossmatch Imaging Radiology Impressions: ITS Impressions Head CT 03/31/22 10:48 IMPRESSION: No acute intracranial pathology. Mild generalized atrophy and nonspecific periventricular white matter disease. This critical result was discussed with Dr. workstation were at 1054 hours on 03/31/2022. It was ascertained that the content and urgency of the report was understood at the time of direct communication. Head/Neck CTA 03/31/22 10:56 IMPRESSION: - No acute intracranial findings. 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 Chronic encephalomalacia and gliosis within the right temporal lobe. If focal neurologic deficit persists and if not contraindicated, a MRI of the brain would be helpful in further assessment. 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 An underlying right vertebral artery dissection cannot be excluded. - Extensive atherosclerotic disease involving the carotid bifurcations bilaterally resulting in an 80-90% stenosis of the proximal right internal carotid artery and a 70% stenosis of the proximal left internal carotid artery. Retropharyngeal course of both proximal internal carotid arteries bilaterally. - There is right periauricular soft tissue stranding and thickening of the right cartilaginous external auditory canal that they can be correlated for clinical signs of right-sided otitis externa. Soft tissue within the external auditory canals bilaterally, likely cerumen that can also be correlated with direct visual inspection. Findings discussed with Dr.Steven Perez at 11:04 AM on 03/31/2022. Chest X-Ray 03/31/22 15:57 IMPRESSION: * Bilateral patchy airspace opacities are nonspecific. Pulmonary edema or pneumonitis could have this appearance. * Small right pleural effusion with accompanying atelectasis. Chest X-Ray 04/01/22 00:37 IMPRESSION: Cardiomegaly with pulmonary vascular congestion and small right effusion. Appearances are slightly improved when compared to yesterday. Abdomen/Pelvis CT 04/03/22 05:35 IMPRESSION: 1. Left percutaneous nephrostomy tube is in place. Bilateral hydroureter with right-sided hydronephrosis. The dilatation extends to the level of the bladder. Etiology is uncertain. This could be associated with outlet obstruction, though infection or mass are not excluded. 2. Moderate right and small left pleural effusions. Patchy opacities at the lung bases could be infectious or inflammatory. 3. Abdominal aortic aneurysm measuring 4.1 cm transverse. Recommend follow-up every 6 months and nonemergent vascular consultation. 4. Cholelithiasis. Fleischner guidelines were followed. Chest X-Ray 04/05/22 10:20 IMPRESSION: Interval decrease in pulmonary vascular congestion with persistent small right pleural effusion. Chest X-Ray 04/06/22 01:25 IMPRESSION: Small right pleural effusion with adjacent basilar atelectasis versus consolidation, similar to possibly slightly improved from prior. Head CT 04/06/22 09:47 IMPRESSION: No acute intracranial process seen. This critical result was discussed with at 9:49 AM on 04/06/2022. It was ascertained that the content and urgency of the report was understood at the time of direct communication. Chest X-Ray 04/06/22 09:50 IMPRESSION: Moderate opacification right lung base likely combination of effusion/atelectasis or infiltrate. The left lung is clear. Cardiomegaly. Venous Duplex 04/06/22 12:55 IMPRESSION: No DVT demonstrated in the bilateral lower extremities. Pulmonary Perfusion Imaging 04/06/22 14:35 IMPRESSION: Very low probability of pulmonary embolism. Abnormalities described above are likely due to a right pleural effusion. Mental Status Exam Mental Status Exam Narrative: Pt is somnolent, unresponsive, frail appearing, in hospital attire. Medications Medications Current Medications Amlodipine Besylate (Amlodipine Besylate 10 Mg Tablet) 10 mg PO DAILY [facility]; Protocol Last Admin: 04/06/22 09:04 Dose: Not Given Aspirin (Aspirin 81 Mg Tab.Chew) 81 mg PO DAILY [facility] Last Admin: 04/06/22 09:04 Dose: Not Given Atorvastatin Calcium (Atorvastatin Calcium 40 Mg Tablet) 40 mg PO DAILY [facility] Last Admin: 04/06/22 09:04 Dose: Not Given Dextrose (Dextrose 50 % 25 Gm/50 Ml Syringe) 25 gm IVPUSH Q15M PRN; Protocol PRN Reason: per Hypoglycemia Standing Ord. Ferrous Sulfate (Ferrous Sulfate 324 Mg Abena.) 324 mg PO DAILY [facility] Last Admin: 04/06/22 09:04 Dose: Not Given Glucose (Glucose Gel 15 Gm Gel..Gram.) 15 gm PO Q15M PRN; Protocol PRN Reason: per Hypoglycemia Standing Ord. Magnesium Sulfate 5 meq/Calcium Gluconate 4.65 meq/Sodium Acetate 35 meq/Multivitamins 10.5 ml/ Trace Metals 1 ml/ Amino Acids/Electrolytes/Dextrose 960 mls @ 40 mls/hr IVCONT DAILY@1800 [facility] Stop: 04/07/22 17:59 Metronidazole (Flagyl) 500 mg in 100 mls @ 100 mls/hr IV Q8H [facility] Last Admin: 04/06/22 15:19 Dose: 100 mls/hr Insulin Human Lispro (Insulin Lispro 100 Unit/Ml 3 Ml Vial) 0 unit SUBCUT QIDACHS [facility]; Protocol Last Admin: 04/06/22 11:45 Dose: Not Given Melatonin (Melatonin 3 Mg Tablet) 6 mg PO BEDTIME PRN PRN Reason: insomnia Nadolol (Nadolol 20 Mg Tablet) 20 mg PO DAILY [facility]; Protocol Last Admin: 04/06/22 09:05 Dose: Not Given Olanzapine (Olanzapine 5 Mg Tablet) 5 mg PO DAILY [facility] Last Admin: 04/06/22 09:05 Dose: Not Given Olanzapine (Olanzapine 10 Mg Vial) 5 mg IM ONCE PRN PRN Reason: anxiety/restlessness Last Admin: 04/03/22 22:39 Dose: 5 mg Quetiapine Fumarate (Quetiapine Fumarate 25 Mg Tablet) 25 mg PO BID [facility] Last Admin: 04/06/22 09:05 Dose: Not Given Rifaximin (Rifaximin 550 Mg Tablet) 550 mg PO BID [facility] Last Admin: 04/06/22 09:05 Dose: Not Given Sodium Chloride (0.9 % Sodium Chloride Flush 3 Ml Syringe) 3 ml IVFLUSH QSHIFT [facility] Last Admin: 04/06/22 08:02 Dose: Not Given Allergies Allergies Allergy/AdvReac Type Severity Reaction Status Date / Time No Known Allergies Allergy Verified 03/31/22 10:34 Assessment & Plan Assessment & Plan (1) Urinary tract infection: Status: Acute Code(s): N39.0 - Urinary tract infection, site not specified (2) Bladder cancer: Status: Acute Code(s): C67.9 - Malignant neoplasm of bladder, unspecified (3) Schizophrenia, chronic condition: Status: Acute Code(s): F20.9 - Schizophrenia, unspecified Plan Plan: Will re-start Zyprexa at lower dose of 2.5 mg HS due to sedation, somnolence. Pt has reportedly not been taking PO meds, however zydis does not come in low dose. Therefore, pt will likely be non-adherent, explained this to his HCP. However, he is insistent that olanzapine is effective for pt?s sedation and paranoia. I have shared this with Dr. Berry Thank you for this consultation. If you have any questions or concerns, please do not hesitate to contact psychiatry service. I spent minutes with the patient and/or on the patient floor today, greater than?50% of which was spent counseling/coordinating care.
[2022-04-06 16:45] LABS: Glucose, Whole Blood 109 mg/dL (60-115)
--- NOTE | 2022-04-06 16:46 | PM.NEUROCN ---
History of Present Illness Data of Consult Service Date: 04/06/22 Primary Care Provider: Martha Mckeon MD HPI [place] consult[place] [facility] [place] and [place] This is a 76-year-old male group home resident brought in for unresponsiveness.?He had pinpoint pupils but did not respond to Narcan.? 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 Patient was hypotensive and hypothermic; Noted to be anemic with a hemoglobin of 5.6 for which 2 units were transfused.? Sepsis protocol initiated with blood cultures being drawn x2; ceftriaxone 1 g IV x1 after urine culture.? Saline bolus of 30 cc/kilogram given with improvement of hypotension.? Urine c/w UTI. Patient hightower sbeen hypoxic and restless and poorly responsive after 1 wk of Ceftriaxone which was stopped today. Review of Systems Review of Systems: Unable to obtain Yes Unobtainable due to mental condition and Unobtainable due to mental status Constitutional: Constitutional: Reports as per HPI and Reports no additional constitutional complaints Cardiovascular: Cardiovascular: Reports as per HPI and Reports no additional cardiovascular complaints Respiratory: Respiratory: Reports as per HPI and Reports no additional respiratory complaints Gastrointestinal: Gastrointestinal: Reports as per HPI and Reports no additional gastrointestinal complaints Genitourinary: Genitourinary: Reports as per HPI Musculoskeletal: Musculoskeletal: Reports no additional musculoskeletal complaints and Reports as per HPI Neurologic: Reports system reviewed and no additional complaints, except as documented and Reports as per HPI PMF Family History Family history: reviewed and not pertinent Social History Social History Household Members: None Housing: Assisted Living Facility Patient Tobacco Use Status: Never used Tobacco service: No Current occupational status: disabled Meds Allergies Allergy/AdvReac Type Severity Reaction Status Date / Time No Known Allergies Allergy Verified 03/31/22 10:34 Active Medications: Current Medications Amlodipine Besylate (Amlodipine Besylate 10 Mg Tablet) 10 mg PO DAILY [facility]; Protocol Last Admin: 04/06/22 09:04 Dose: Not Given Aspirin (Aspirin 81 Mg Tab.Chew) 81 mg PO DAILY [facility] Last Admin: 04/06/22 09:04 Dose: Not Given Atorvastatin Calcium (Atorvastatin Calcium 40 Mg Tablet) 40 mg PO DAILY [facility] Last Admin: 04/06/22 09:04 Dose: Not Given Dextrose (Dextrose 50 % 25 Gm/50 Ml Syringe) 25 gm IVPUSH Q15M PRN; Protocol PRN Reason: per Hypoglycemia Standing Ord. Ferrous Sulfate (Ferrous Sulfate 324 Mg Tablet.Dr) 324 mg PO DAILY [facility] Last Admin: 04/06/22 09:04 Dose: Not Given Glucose (Glucose Gel 15 Gm Gel..Gram.) 15 gm PO Q15M PRN; Protocol PRN Reason: per Hypoglycemia Standing Ord. Magnesium Sulfate 5 meq/Calcium Gluconate 4.65 meq/Sodium Acetate 35 meq/Multivitamins 10.5 ml/ Trace Metals 1 ml/ Amino Acids/Electrolytes/Dextrose 960 mls @ 40 mls/hr IVCONT DAILY@1800 [facility] Stop: 04/07/22 17:59 Metronidazole (Flagyl) 500 mg in 100 mls @ 100 mls/hr IV Q8H [facility] Last Infusion: 04/06/22 16:35 Dose: Infused Insulin Human Lispro (Insulin Lispro 100 Unit/Ml 3 Ml Vial) 0 unit SUBCUT QIDACHS [facility]; Protocol Last Admin: 04/06/22 11:45 Dose: Not Given Melatonin (Melatonin 3 Mg Tablet) 6 mg PO BEDTIME PRN PRN Reason: insomnia Nadolol (Nadolol 20 Mg Tablet) 20 mg PO DAILY [facility]; Protocol Last Admin: 04/06/22 09:05 Dose: Not Given Olanzapine (Olanzapine 5 Mg Tablet) 5 mg PO DAILY [facility] Last Admin: 04/06/22 09:05 Dose: Not Given Olanzapine (Olanzapine 10 Mg Vial) 5 mg IM ONCE PRN PRN Reason: anxiety/restlessness Last Admin: 04/03/22 22:39 Dose: 5 mg Quetiapine Fumarate (Quetiapine Fumarate 25 Mg Tablet) 25 mg PO BID [facility] Last Admin: 04/06/22 09:05 Dose: Not Given Rifaximin (Rifaximin 550 Mg Tablet) 550 mg PO BID [facility] Last Admin: 04/06/22 09:05 Dose: Not Given Sodium Chloride (0.9 % Sodium Chloride Flush 3 Ml Syringe) 3 ml IVFLUSH QSHIFT [facility] Last Admin: 04/06/22 08:02 Dose: Not Given Home Medications Medication Instructions Recorded Confirmed Last Taken Type acetaminophen 325 mg tablet 650 mg PO Q4H PRN Pain 03/31/22 03/31/22 Unknown History amlodipine 10 mg tablet 1 tab PO DAILY 03/31/22 03/31/22 Unknown History aspirin 81 mg chewable tablet 81 mg PO DAILY 03/31/22 03/31/22 Unknown History atorvastatin 40 mg tablet 1 tab PO DAILY 03/31/22 03/31/22 Unknown History clotrimazole 1 % topical cream 1 appl topical BID PRN Rash 03/31/22 03/31/22 Unknown History docusate sodium 100 mg tablet 100 mg PO DAILY 03/31/22 03/31/22 Unknown History dulaglutide 0.75 mg/0.5 mL 0.75 mg subcut WE 03/31/22 03/31/22 Unknown History subcutaneous pen injector (Trulicity) ferrous sulfate 325 mg (65 mg 325 mg PO DAILY 03/31/22 03/31/22 Unknown History iron) tablet insulin glargine-yfgn 100 unit/mL 14 unit subcut DAILY 03/31/22 03/31/22 Unknown History subcutaneous solution insulin lispro 100 unit/mL 0 sliding scale dose subcut QIDACHS 03/31/22 03/31/22 Unknown History subcutaneous solution multivitamin 1 tab PO DAILY 03/31/22 03/31/22 Unknown History nadolol 20 mg tablet 1 tab PO DAILY 03/31/22 03/31/22 Unknown History olanzapine 5 mg tablet 1 tab PO BEDTIME 03/31/22 03/31/22 Unknown History ondansetron HCl 4 mg tablet 1 tab PO Q8H PRN Nausea 03/31/22 03/31/22 Unknown History rifaximin 550 mg tablet (Xifaxan) 1 tab PO BID 03/31/22 03/31/22 Unknown History sennosides 8.6 mg tablet (senna) 8.6 mg PO BEDTIME 03/31/22 03/31/22 Unknown History sodium bicarbonate 650 mg tablet 650 mg PO BID 03/31/22 03/31/22 Unknown History thiamine HCl (vitamin B1) 50 mg 50 mg PO DAILY 03/31/22 03/31/22 Unknown History tablet triamcinolone acetonide 0.1 % 1 applic topical BID PRN Rash 03/31/22 03/31/22 Unknown History topical cream Physical Exam Vital Signs: Vital Signs: Last Vital Signs Temp 97.8 F 04/06/22 16:31 Pulse 77 04/06/22 16:31 Resp 20 04/06/22 16:31 BP 118/68 04/06/22 16:31 Pulse Ox 98 04/06/22 16:31 O2 Del Method 04/06/22 16:31 O2 Flow Rate 8 04/06/22 16:31 Oxygen Flow Rate 4 03/31/22 10:53 BMI result Body Mass Index 29.5 Const: Other: Appended. .. Likely from Zyprexa General: cooperative, healthy appearing, comfortable, no acute distress and lethargic Nutritional Appearance: Edematous Orientation/consciousness: patient oriented x3 and lethargic HEENT: Face and sinus: Yes normal facial exam Mouth: moist mucous membranes Eyes: Sclerae: sclerae normal EOM: EOMs intact bilaterally Neck: Neck: Yes normal visual inspection, Yes full ROM, Yes no lymphadenopathy, Yes trachea midline and Yes supple Chest: Chest palpation & inspection: normal inspection of the chest Resp: Other: Clear to auscultation bilaterally no rales rhonchi or wheezes Effort & Inspection: normal respiratory effort, able to speak in complete sentences and no respiratory distress Auscultation: crackles (Diffuse bilateral) Cardio: Other: No S4; positive S1-S2; no S3 murmurs rubs or gallops Rate: regular rate Rhythm: regular rhythm Heart sounds: no gallops, no murmurs and no rubs GI: Inspection: Yes normal to inspection Palpation (GI): Soft to palpation and Other GI palpation findings present ( Nontender) Auscultation: normal bowel sounds : Other: CBI with clear urine Back/Spine/Pelvis: Other: Percutaneous nephrostomy tube draining clear fluid; flushes well per nursing Cervical Spine: normal cervical lordosis Thoracic/Lumbar Spine: thoracic and lumbar spine normal to inspection Skin: General skin exam: no rashes or lesions noted Neuro: Other: Poorly responsive . Limited exam. Moves all 4 extremities. Non focal exam. Mild nuchal rigidity General: patient oriented x3, tone normal and moves all extremities Extrem: Other: No edema bilaterally General: Yes normal to inspection, Yes capillary refill normal, No clubbing, No cyanosis and Yes edema (1+ bilateral) Psych: Other: somnolence Results Labs CBC & Chem 7: 04/06/22 05:51 04/06/22 05:51 Labs: Short CBC 04/06/22 Range/Units 05:51 WBC 9.9 (4.8-10.8) X10*3/uL Hgb 8.6 L (14.0-18.0) g/dl Hct 26.1 L (42.0-52.0) % Plt Count 57 L D (160-400) X10*3/uL BMP 04/06/22 05:51 Sodium 135 Potassium 4.3 Chloride 111 H Carbon Dioxide 16 L BUN 53 H Creatinine 2.76 H Calcium 7.8 L Liver Function 04/06/22 Range/Units 05:51 Total Bilirubin 0.5 (0.0-1.0) mg/dL AST 38 H (5-37) U/L ALT 33 (0-40) U/L Alkaline Phosphatase 248 H (39-117) U/L Albumin 2.4 L (3.5-5.0) g/dL Microbiology Microbiology Results: Microbiology 03/31/22 15:07 Blood - Venous Blood Culture - Final No growth after 5 days. 03/31/22 15:07 Blood - Venous Blood Culture - Final No growth after 5 days. 03/31/22 00:00 Urine Other - Nephrostomy Urine Culture - Final Staphylococcus cohnii ssp urea 03/31/22 15:02 Blood - Venous Blood Culture - Final 03/31/22 15:02 Blood - Venous Blood Culture - Final Assessment and Plan (1) Acute respiratory failure with hypoxia: Status: Acute (2) Gross hematuria: Status: Acute (3) Urinary tract infection: Status: Acute Staph cohni is likely not true organism. He has encephalopathy and has been on antibiotics for seven days Hematuria may be due to pulling Waldrop. There is no fever or leukocytosis. (4) Encephalopathy acute: Status: Acute Probably related to multifactorial basis with sepsis, hypoxia, metabolic abnormalities and baseline dementia. Recom. EEG, Lumbar puncture.MRI brain if cooperative to r/o multiple infarcts Plan Stop antibiotics at this time/ Procedures Date of Service Date of Service: 04/06/22
--- NOTE | 2022-04-06 16:50 | PM.UROPN ---
Subjective Subjective Date of Service: 04/06/22 Interval history: Left PCN draining well Waldrop with pink tinged urine on CBI Background of bladder cancer managed by Dr Martinez Hare [facility] via [facility] CBI overnight Physical Exam Vital Signs: Vital Signs: Last Vital Signs Temp 97.8 F 04/06/22 16:31 Pulse 77 04/06/22 16:31 Resp 20 04/06/22 16:31 BP 118/68 04/06/22 16:31 Pulse Ox 98 04/06/22 16:31 O2 Del Method 04/06/22 16:31 O2 Flow Rate 8 04/06/22 16:31 Oxygen Flow Rate 4 03/31/22 10:53 BMI result Body Mass Index 29.5 Const: General: cooperative, healthy appearing, comfortable and no acute distress Orientation/consciousness: patient oriented x3 HEENT: Face and sinus: Yes normal facial exam Mouth: moist mucous membranes Neck: Neck: Yes normal visual inspection, Yes full ROM and Yes trachea midline Chest: Chest palpation & inspection: normal inspection of the chest Resp: Effort & Inspection: normal respiratory effort, able to speak in complete sentences and no respiratory distress GI: Inspection: Yes normal to inspection Back/Spine/Pelvis: Cervical Spine: normal cervical lordosis Thoracic/Lumbar Spine: thoracic and lumbar spine normal to inspection Skin: General skin exam: no rashes or lesions noted Neuro: General: patient oriented x3, tone normal and moves all extremities Extrem: General: Yes normal to inspection and Yes capillary refill normal Urology Results Labs CBC & Chem 7: 04/06/22 05:51 04/06/22 05:51 Labs: Laboratory Results - last 24 hr 04/05/22 04/06/22 04/06/22 20:44 01:01 05:51 WBC 9.9 RBC 3.10 L Hgb 8.6 L Hct 26.1 L MCV 84.2 MCH 27.7 MCHC 33.0 RDW 18.6 H Plt Count 57 L D MPV 10.5 Immature Gran % (Auto) 0.8 H Neut % (Auto) 86.0 H Lymph % (Auto) 5.8 L [place] % (Auto) 6.0 Eos % (Auto) 1.2 Baso % (Auto) 0.2 Lymph # (Auto) 0.6 L [place] # (Auto) 0.6 Eos # (Auto) 0.1 Baso # (Auto) 0.0 Abs Immat Gran (auto) 0.08 H Absolute Neuts (auto) 8.5 H Absolute Nucleated RBC 0.030 H Nucleated RBC % (auto) 0.3 H O2 Saturation 88.0 ABG pH at Pt Temp 7.37 ABG pCO2 at Pt Temp 27 L ABG pO2 at Pt Temp 61 L ABG HCO3 16 L ABG Base Excess (Actual) -7.6 Sodium Potassium Chloride Carbon Dioxide Anion Gap BUN Creatinine Estim Creat Clear Calc Estimated GFR POC Glucose 93 Fasting Glucose Calcium Phosphorus Magnesium Total Bilirubin AST ALT Alkaline Phosphatase Ammonia Total Protein Albumin 04/06/22 04/06/22 04/06/22 05:51 08:42 09:30 WBC RBC Hgb Hct MCV MCH MCHC RDW Plt Count MPV Immature Gran % (Auto) Neut % (Auto) Lymph % (Auto) [place] % (Auto) Eos % (Auto) Baso % (Auto) Lymph # (Auto) [place] # (Auto) Eos # (Auto) Baso # (Auto) Abs Immat Gran (auto) Absolute Neuts (auto) Absolute Nucleated RBC Nucleated RBC % (auto) O2 Saturation ABG pH at Pt Temp ABG pCO2 at Pt Temp ABG pO2 at Pt Temp ABG HCO3 ABG Base Excess (Actual) Sodium 135 Potassium 4.3 Chloride 111 H Carbon Dioxide 16 L Anion Gap 12 BUN 53 H Creatinine 2.76 H Estim Creat Clear Calc 22.6 Estimated GFR 22 POC Glucose 139 H 150 H Fasting Glucose 156 H Calcium 7.8 L Phosphorus 5.1 H Magnesium 1.7 Total Bilirubin 0.5 AST 38 H ALT 33 Alkaline Phosphatase 248 H Ammonia Total Protein 5.0 L Albumin 2.4 L 04/06/22 04/06/22 04/06/22 09:34 11:37 11:51 WBC RBC Hgb Hct MCV MCH MCHC RDW Plt Count MPV Immature Gran % (Auto) Neut % (Auto) Lymph % (Auto) [place] % (Auto) Eos % (Auto) Baso % (Auto) Lymph # (Auto) [place] # (Auto) Eos # (Auto) Baso # (Auto) Abs Immat Gran (auto) Absolute Neuts (auto) Absolute Nucleated RBC Nucleated RBC % (auto) O2 Saturation 80.0 ABG pH at Pt Temp 7.38 ABG pCO2 at Pt Temp 26 L ABG pO2 at Pt Temp 55 L ABG HCO3 15 L ABG Base Excess (Actual) -8.2 Sodium Potassium Chloride Carbon Dioxide Anion Gap BUN Creatinine Estim Creat Clear Calc Estimated GFR POC Glucose 159 H Fasting Glucose Calcium Phosphorus Magnesium Total Bilirubin AST ALT Alkaline Phosphatase Ammonia 38 Total Protein Albumin 04/06/22 16:40 WBC RBC Hgb Hct MCV MCH MCHC RDW Plt Count MPV Immature Gran % (Auto) Neut % (Auto) Lymph % (Auto) [place] % (Auto) Eos % (Auto) Baso % (Auto) Lymph # (Auto) [place] # (Auto) Eos # (Auto) Baso # (Auto) Abs Immat Gran (auto) Absolute Neuts (auto) Absolute Nucleated RBC Nucleated RBC % (auto) O2 Saturation ABG pH at Pt Temp ABG pCO2 at Pt Temp ABG pO2 at Pt Temp ABG HCO3 ABG Base Excess (Actual) Sodium Potassium Chloride Carbon Dioxide Anion Gap BUN Creatinine Estim Creat Clear Calc Estimated GFR POC Glucose 109 Fasting Glucose Calcium Phosphorus Magnesium Total Bilirubin AST ALT Alkaline Phosphatase Ammonia Total Protein Albumin Progress Note: A&P Assessment and plan (1) Urinary tract infection: Status: Acute Plan Follow CBI Time Spent With Patient Time: Total time spent is greater than 50% in coordination of care (as documented) at patient's floor/unit and/or counseling patient: Progress Note: Quality Stroke Does the patient have a stroke diagnosis?: No
[2022-04-06] MEDS: Furosemide 40 MG/4 ML VIAL IVPUSH (17:00)
[2022-04-06 17:35] LABS: B Type Natriuretic Peptide 150 pg/mL (<100)
--- NOTE | 2022-04-06 17:35 | P.PNIM_ITS ---
Subjective Subjective Date of Service: 04/07/22 Interval History: less responsive ,somloscent in am Review of Systems Intermittent weak, no fever overnight, pinkish urine in the C[facility] bag. Physical Exam Vital Signs: Vital Signs: Last Vital Signs Temp 97.8 F 04/06/22 16:31 Pulse 77 04/06/22 16:31 Resp 20 04/06/22 16:31 BP 118/68 04/06/22 16:31 Pulse Ox 98 04/06/22 16:31 O2 Del Method 04/06/22 16:31 O2 Flow Rate 8 04/06/22 16:31 Oxygen Flow Rate 4 03/31/22 10:53 BMI result Body Mass Index 29.5 Appearance: mostly somloscent Eyes: Pupils equal, round and reactive to light.? Sclera nonicteric.? ENT: Moist mucous membranes. cvs: rrr, [id number] . res: diminshed at bases, few scattered rales at bases. abd: no rebound or guarding ,nt, bs present. ext pulses present , no cyanosis , edema on lower ext. neuro: unable to obtain Objective Data Active Medications Amlodipine Besylate (Amlodipine Besylate 10 Mg Tablet) 10 mg PO DAILY [facility]; Protocol Last Admin: 04/06/22 09:04 Dose: Not Given Documented By: BIANCA Non-Admin Reason: See Note Aspirin (Aspirin 81 Mg Tab.Chew) 81 mg PO DAILY [facility] Last Admin: 04/06/22 09:04 Dose: Not Given Documented By: BIANCA Non-Admin Reason: See Note Atorvastatin Calcium (Atorvastatin Calcium 40 Mg Tablet) 40 mg PO DAILY [facility] Last Admin: 04/06/22 09:04 Dose: Not Given Documented By: BIANCA Non-Admin Reason: See Note Dextrose (Dextrose 50 % 25 Gm/50 Ml Syringe) 25 gm IVPUSH Q15M PRN; Protocol PRN Reason: per Hypoglycemia Standing Ord. Ferrous Sulfate (Ferrous Sulfate 324 Mg Tablet.) 324 mg PO DAILY [facility] Last Admin: 04/06/22 09:04 Dose: Not Given Documented By: BIANCA Non-Admin Reason: See Note Furosemide (Furosemide 40 Mg/4 Ml Vial) 40 mg IVPUSH Q12H [facility]; Protocol Last Admin: 04/06/22 17:00 Dose: 40 mg Documented By: BIANCA Glucose (Glucose Gel 15 Gm Gel..Gram.) 15 gm PO Q15M PRN; Protocol PRN Reason: per Hypoglycemia Standing Ord. Magnesium Sulfate 5 meq/Calcium Gluconate 4.65 meq/Sodium Acetate 35 meq/Multivitamins 10.5 ml/ Trace Metals 1 ml/ Amino Acids/Electrolytes/Dextrose 960 mls @ 40 mls/hr IVCONT DAILY@1800 [facility] Stop: 04/07/22 17:59 Metronidazole (Flagyl) 500 mg in 100 mls @ 100 mls/hr IV Q8H [facility] Last Infusion: 04/06/22 16:35 Dose: 0 mls/hr Documented By: BIANCA Insulin Human Lispro (Insulin Lispro 100 Unit/Ml 3 Ml Vial) 0 unit SUBCUT QIDACHS [facility]; Protocol Last Admin: 04/06/22 17:00 Dose: Not Given Documented By: JOLIE-SOFFA Non-Admin Reason: See Note Melatonin (Melatonin 3 Mg Tablet) 6 mg PO BEDTIME PRN PRN Reason: insomnia Nadolol (Nadolol 20 Mg Tablet) 20 mg PO DAILY [facility]; Protocol Last Admin: 04/06/22 09:05 Dose: Not Given Documented By: BIANCA Non-Admin Reason: See Note Olanzapine (Olanzapine 2.5 Mg Tablet) 2.5 mg PO BEDTIME [facility] Rifaximin (Rifaximin 550 Mg Tablet) 550 mg PO BID [facility] Last Admin: 04/06/22 09:05 Dose: Not Given Documented By: MURPHYSOFKATELYN Non-Admin Reason: See Note Sodium Chloride (0.9 % Sodium Chloride Flush 3 Ml Syringe) 3 ml IVFLUSH QSHIFT [facility] Last Admin: 04/06/22 08:02 Dose: Not Given Documented By: JOLIE-SOFFA Non-Admin Reason: See Note Labs CBC & Chem 7: 04/07/22 13:21 04/07/22 06:01 Labs: Laboratory Results - last 24 hr 04/05/22 04/06/22 04/06/22 20:44 01:01 05:51 MCV 84.2 MCH 27.7 MCHC 33.0 RDW 18.6 H Plt Count 57 L D MPV 10.5 Immature Gran % (Auto) 0.8 H Neut % (Auto) 86.0 H Lymph % (Auto) 5.8 L [place] % (Auto) 6.0 Eos % (Auto) 1.2 Baso % (Auto) 0.2 Lymph # (Auto) 0.6 L [place] # (Auto) 0.6 Eos # (Auto) 0.1 Baso # (Auto) 0.0 Abs Immat Gran (auto) 0.08 H Absolute Neuts (auto) 8.5 H Absolute Nucleated RBC 0.030 H Nucleated RBC % (auto) 0.3 H O2 Saturation 88.0 ABG pH at Pt Temp 7.37 ABG pCO2 at Pt Temp 27 L ABG pO2 at Pt Temp 61 L ABG HCO3 16 L ABG Base Excess (Actual) -7.6 Anion Gap Estim Creat Clear Calc Estimated GFR POC Glucose 93 Fasting Glucose Calcium Phosphorus Magnesium Total Bilirubin AST ALT Alkaline Phosphatase Ammonia Total Protein Albumin 04/06/22 04/06/22 04/06/22 05:51 08:42 09:30 MCV MCH MCHC RDW Plt Count MPV Immature Gran % (Auto) Neut % (Auto) Lymph % (Auto) [place] % (Auto) Eos % (Auto) Baso % (Auto) Lymph # (Auto) [place] # (Auto) Eos # (Auto) Baso # (Auto) Abs Immat Gran (auto) Absolute Neuts (auto) Absolute Nucleated RBC Nucleated RBC % (auto) O2 Saturation ABG pH at Pt Temp ABG pCO2 at Pt Temp ABG pO2 at Pt Temp ABG HCO3 ABG Base Excess (Actual) Anion Gap 12 Estim Creat Clear Calc 22.6 Estimated GFR 22 POC Glucose 139 H 150 H Fasting Glucose 156 H Calcium 7.8 L Phosphorus 5.1 H Magnesium 1.7 Total Bilirubin 0.5 AST 38 H ALT 33 Alkaline Phosphatase 248 H Ammonia Total Protein 5.0 L Albumin 2.4 L 04/06/22 04/06/22 04/06/22 09:34 11:37 11:51 MCV MCH MCHC RDW Plt Count MPV Immature Gran % (Auto) Neut % (Auto) Lymph % (Auto) [place] % (Auto) Eos % (Auto) Baso % (Auto) Lymph # (Auto) [place] # (Auto) Eos # (Auto) Baso # (Auto) Abs Immat Gran (auto) Absolute Neuts (auto) Absolute Nucleated RBC Nucleated RBC % (auto) O2 Saturation 80.0 ABG pH at Pt Temp 7.38 ABG pCO2 at Pt Temp 26 L ABG pO2 at Pt Temp 55 L ABG HCO3 15 L ABG Base Excess (Actual) -8.2 Anion Gap Estim Creat Clear Calc Estimated GFR POC Glucose 159 H Fasting Glucose Calcium Phosphorus Magnesium Total Bilirubin AST ALT Alkaline Phosphatase Ammonia 38 Total Protein Albumin 04/06/22 16:40 MCV MCH MCHC RDW Plt Count MPV Immature Gran % (Auto) Neut % (Auto) Lymph % (Auto) [place] % (Auto) Eos % (Auto) Baso % (Auto) Lymph # (Auto) [place] # (Auto) Eos # (Auto) Baso # (Auto) Abs Immat Gran (auto) Absolute Neuts (auto) Absolute Nucleated RBC Nucleated RBC % (auto) O2 Saturation ABG pH at Pt Temp ABG pCO2 at Pt Temp ABG pO2 at Pt Temp ABG HCO3 ABG Base Excess (Actual) Anion Gap Estim Creat Clear Calc Estimated GFR POC Glucose 109 Fasting Glucose Calcium Phosphorus Magnesium Total Bilirubin AST ALT Alkaline Phosphatase Ammonia Total Protein Albumin Microbiology Microbiology Results: Microbiology 03/31/22 15:07 Blood Culture - Final Blood - Venous No growth after 5 days. 03/31/22 15:07 Blood Culture - Final Blood - Venous No growth after 5 days. Assessment and Plan (1) Bladder cancer: Status: Acute (2) Acute respiratory failure with hypoxia: Status: Acute (3) CHF (congestive heart failure): Status: Acute Plan 76-year-old male presents unresponsive, hypotensive, hypothermic in the backdrop of active urinary sediment.? More cooperative with Zyprexa however somewhat agitated overnight.? Additional dose of Zyprexa given acute hypoxemic respiratory failure, possible secondary to CHF ( unclear etiology) echo pendin chest x-ray- Atelectasis /effusion, ABG reviewed- pH seems fine., ammonia Fine. started on IV Lasix, daily weight,i/o, incentive spirometry, chest physiotherapy, Continue suctioning, Oxygen support. oxygen support-keep sats 92 % toxic metabolic encephalopathy : Multifactorial( acute hypoxemic respiratory failure/ CHF/electrolytic abnormalities/ poor oral intake/ dementia) supportive care. CT head negative neuro saw the patient-encephalopathy Possibly related to multifactorial basis with hypoxia, metabolic abnormalities and baseline dementia-added mri/eeg seen by ICu/pulm: currently recommended to continue management in addition added albumin Hematuria -CBI with normal saline ...? Urine now clear -percutaneous nephrostomy tube draining clear urine since patient more cooperative urology called for follow up- Urology will follow-up with CBI and Discuss withfamily. UTI -ceftriaxone 1 g Q 24 hours.. -culture unreliable from nephrostomy tube.? urine culture noted- received 7 days of antibiotic, discussed with infectious disease- urine culture and chest x-ray: patient does not have any leukocytosis or fever, blood culture negative, off ceftriaxone. Hypothermia -no further hypothermia since 04/04 -follow rectal times Anemia -stable at this time -follow daily CBCs Type 2 diabetes: flacutaing fs 110-160 -diet resumed.. .? limited intake Adjustedlispro coorectional scale. Dementia with agitated features -arousable this a.m. likely secondary to overnight Zyprexa -will hold p.o. dose this a.m. and follow -portable chest done - please see above in UTI section. possible failure to thrive: patient is not eating well from at least 2 weeks. Family currently does not wants central line so started PPN family does not want tube feeding also above management discussed with patient family in detail length they understand and in agreement with the above , healthcare proxy Mr. Menezes- they understand the patient prognosis is poor, currently continue conservative management, if patient condition further deteriorate please inform the family . in addition at family request called [facility] for transfer for family preference- ( [facility] declined- the take only [place], stroke, OBGYN, peds , trauma) also [facility] for [facility] records. Full code Vena dynes boots ongoing hospitalization for treatment:acute hypoxemic respiratory failure, possible secondary to CHF. Quality Stroke Does the patient have a stroke diagnosis?: No VTE Prior VTE?: No VTE Risk Level:: Medical - moderate - high VTE Device Contraindication: N/A - Device Ordered VTE Drug Contraindication: Treatment Not Indicated
--- NOTE | 2022-04-06 18:44 | PC.NURSE ---
PTPN Peripheral started @184, Pharmacy okayed without peripheral
[2022-04-06 20:20] LABS: Glucose, Whole Blood 131 mg/dL (60-115)
[2022-04-06 21:10] LABS: Glucose, Whole Blood 144 mg/dL (60-115)
[2022-04-06] MEDS: 0.9 % Sodium Chloride Flush 3 ML SYRINGE IVFLUSH (21:48)
[2022-04-07] VITALS: BP 121/68; PULSE 71; RESP 16; TEMP 36.1; O2SAT 98
[2022-04-07 00:25] LABS: Hepatitis B Core Antibody IgM NON-REACTIVE (NON-REACTIVE)
[2022-04-07] MEDS: Furosemide 40 MG/4 ML VIAL IVPUSH (05:45)
[2022-04-07] MEDS: metroNIDAZOLE/NS 500 MG/100 ML PIGGYBACK 100 MG IV (05:45)
[2022-04-07 06:27] LABS: Eosinophils Percent Auto 0.4 % (0-4); Hemoglobin 7.8 g/dl (14.0-18.0); Lymphocytes Absolute Auto 0.4 X10*3/uL (1.2-4.9); Lymphocytes Percent Auto 3.3 % (20-40); Monocytes Absolute Auto 0.4 X10*3/uL (0.1-1.2); Monocytes Percent Auto 3.4 % (2-11); Neutrophils Absolute Auto 9.9 x10*3/uL (2.0-8.3)
[2022-04-07 06:29] LABS: Basophils Percent Auto 0.2 % (0-2); Hematocrit 23.7 % (42.0-52.0); Imm Gran Abs Auto 0.04 X10*3/uL (0.00-0.03); Imm Gran Pct Auto 0.4 % (0.0-0.4); Mean Corpuscular HGB Conc 32.9 g/dl (31.0-36.0); Mean Corpuscular Hemoglobin 27.6 pg (27.0-33.0); Mean Corpuscular Volume 83.7 fL (80.0-98.0); Mean Platelet Volume 10.1 fL (9.4-12.4); Neutrophils Percent Auto 92.3 % (45-73); Red Blood Count 2.83 X10*6/uL (4.60-5.80); Red Cell Distribution Width 18.7 % (11.0-16.0)
[2022-04-07 06:34] LABS: Platelet Count 57 X10*3/uL (160-400); White Blood Count 10.8 X10*3/uL (4.8-10.8)
--- NOTE | 2022-04-07 07:00 | CA_ITS ---
Transthoracic Echocardiogram Patient (Last, First, Middle): Claudio Garcia, Gender: Male Date of : 1945 Age: 76 Procedure Date: 04/07/2022 Procedure Type: Transthoracic Echocardiogram Location: [facility] [place] Height: 167. cm Weight: 83.01 kg BSA: 1.92 m2 Heart Rate: 67 bpm BP: 124 / 83 mmHg Classified Ad Taker: FELICE Referring MD: Quan Jeong MD Symptoms: ?CHF Study Quality: Technically Difficult ECG Rhythm: Sinus Conclusions: - Normal left ventricular size, thickness, and systolic function. The visually estimated ejection fraction is between 55-60%. There is no evidence of regional wall motion abnormalities. - Normal right ventricular cavity size and systolic function. Findings Procedure Information Contrast agent, definity, is being given per protocol without apparent complications. Left Ventricle Normal left ventricular size, thickness, and systolic function. The visually estimated ejection fraction is between 55-60%. There is no evidence of regional wall motion abnormalities. Abnormal diastolic function is noted. Spectral Doppler is indicative of an impaired relaxation filling pattern. Elevated filling pressures. Right Ventricle Normal right ventricular cavity size and systolic function. Atria The left atrium is normal in size. The right atrium is normal in size. Aortic Valve The aortic valve was not well visualized. Mitral Valve The mitral valve appears normal. There is no mitral valve regurgitation. There is no mitral valve stenosis. Pulmonic Valve The pulmonic valve was not well visualized. Tricuspid Valve Likely normal tricuspid valve structure and function. Tricuspid regurgitation envelope is inadequate for calculation of right ventricular systolic pressure. Normal right atrial pressure. Great Vessels The aorta was not well visualized. The pulmonary artery was not well visualized. Venous The inferior vena cava is normal in size and collapses greater than 50% with inspiration. Pericardium/Pleural There is no evidence of pericardial effusion. Prior Study Comparison No prior study available for comparison. Measurements 2D Linear Measurements IVSd: 0.96 0.6-0.9/0.6-1.0 cm LVIDd: 4.15 3.9-5.3/4.2-5.9 cm LVIDd Index: 2.16 2.4-3.2/2.2-3.1 cm/m2 LVIDs: 3.44 2.0-3.6 cm LVPWd: 1.23 0.7-1.1 cm LA Diam: 2.70 2.7-3.8/3.0-4.0 cm LAIDs Index: 1.41 1.5-2.3 cm/m2 LV Mass: 190.45 67-162/88-224 g LV Mass Index: 99.19 43-95/49-115 g/m2 LVOT Diam: 1.90 3.0+(-)1.3 cm 2D Systolic Function EF 4C: 61.30 >55% EF 2C: 60.90 >55% EF BiP: 60.00 >55% Mitral Valve MV Pk E: 0.64 MV PK A: 0.94 MV Decel Time: 301.00 E/A: 0.70 E'Lateral: 4.90 E'Medial: 2.83 E/E' Med: 22.70 E/E' Lat: 13.10 PHT: 88.00 MVA PHT: 2.50 Decel [place]: 2.13 Aortic Valve AoV Pk Fili: 1.22 AoV Mn Fili: 0.81 AoV VTI: 0.25 AoV Pk Grad: 6.00 Aov Mn Grad: 3.00 CHICO Cont.VTI: 1.86 LVOT LVOT Pk Fili: 0.72 LVOT Mn Fili: 0.45 LVOT VTI: 0.16 LVOT Pk Grad: 2.00 LVOT Mn Grad: 1.00 LVOT Diam: 1.90 LVOT Area: 2.84 Diastolic Function MV Pk E: 0.64 MV Pk A: 0.94 E/A: 0.70 E'Medial: 2.83 E/E' Med: 22.70 E' Laterial: 4.90 E/E' Lat: 13.10 Right Ventricle TAPSE (mm): 19.30 TVS' Fili: 11.10 Tricuspid Valve RA Press: 8.00 Updated in Other Vendor System with Status of Final Weston Hess MD electronically signed on 04/07/2022 4:18:26 PM with status of Final
[2022-04-07 07:43] VITALS: BP 103/55; PULSE 62; RESP 20; TEMP 35.4; O2SAT 98
[2022-04-07 08:04] LABS: Alanine Aminotransferase 30 U/L (0-40); Alkaline Phosphatase 242 U/L (39-117); Anion Gap 14 (12-20); Aspartate Amino Transferase 33 U/L (5-37); Bilirubin Total 0.7 mg/dL (0.0-1.0); Blood Urea Nitrogen 59 mg/dL (9-16); Calcium 8.3 mg/dL (8.4-10.2); Carbon Dioxide 18 mmol/L (22-29); Chloride 109 mmol/L (96-108); Creatinine Clr Calc Pharmacy 22.4; Estimated Glomerular Filt Rate 22; Glucose Fasting 174 mg/dL (60-99); Potassium 3.9 mmol/L (3.3-5.1); Sodium 137 mmol/L (135-145); Total Protein 5.3 g/dL (6.5-8.0)
[2022-04-07 08:29] LABS: Glucose, Whole Blood 137 mg/dL (60-115)
[2022-04-07] MEDS: Thiamine HCL 400 MG in 0.9 % Sodium Chloride 100 ML 208 MG IV ×2 (10:32→16:29)
[2022-04-07] MEDS: Pantoprazole Sodium 40 MG/10 ML VIAL IVPUSH (10:33)
[2022-04-07 10:47] LABS: Cortisol Random 21.2 ug/dL
[2022-04-07 10:49] LABS: Magnesium 1.8 mg/dL (1.6-2.6); Phosphorus 5.3 mg/dL (2.7-4.5)
--- NOTE | 2022-04-07 10:49 | MHC.CLN ---
F/U PT REMAINS NPO RECEIVED PPN D10AA4.25 AT 40ML/HR PROVIDED 490KCALS, 41G PROTEIN REVIEWED LABS PPN TO CONTINUE; RECOMMEND INCREASING FORMULA TO D10AA4.25 AT 60ML/HR TO PROVIDE [id number], 61G PROTEIN REPLETE LYTES NEEDED DISCUSSED WITH PHARMACY
[2022-04-07 11:09] LABS: Thyroid Stimulating Hormone 4.36 uIU/mL (0.32-4.0)
[2022-04-07 11:17] VITALS: BP 103/55; PULSE 75; RESP 20; TEMP 37.1; O2SAT 96
[2022-04-07 11:40] LABS: Glucose, Whole Blood 136 mg/dL (60-115)
[2022-04-07 13:36] LABS: Adenovirus PCR Not Detected (Not Detect.); Bordetella parapertussis PCR Not Detected (Not Detect.); Bordetella pertussis PCR Not Detected (Not Detect.); Chlamydia pneumoniae PCR Not Detected (Not Detect.); Coronavirus 229E PCR Not Detected (Not Detect.); Coronavirus HKU1 PCR Not Detected (Not Detect.); Coronavirus NL63 PCR Not Detected (Not Detect.)
[2022-04-07 13:36] LABS: Hematocrit 22.8 % (42.0-52.0); Hemoglobin 7.5 g/dl (14.0-18.0)
[2022-04-07 13:37] LABS: Coronavirus OC43 PCR Not Detected (Not Detect.); Human metapneumovirus PCR Not Detected (Not Detect.); Influenza A PCR Not Detected (Not Detect.); Influenza B PCR Not Detected (Not Detect.); Mycoplasma pneumoniae PCR Not Detected (Not Detect.); Parainfluenza 1 PCR Not Detected (Not Detect.); Parainfluenza 2 PCR Not Detected (Not Detect.); Parainfluenza 3 PCR Not Detected (Not Detect.); Parainfluenza 4 PCR Not Detected (Not Detect.); RSV PCR Not Detected (Not Detect.); Rhino/Enterovirus PCR Not Detected (Not Detect.); SARS-CoV-2 PCR Not Detected (Not Detect.)
[2022-04-07 15:07] VITALS: BP 106/67; PULSE 74; RESP 18; TEMP 36.1; O2SAT 97
--- NOTE | 2022-04-07 15:11 | HO.PM.IMPN ---
Subjective Subjective Date of Service: 04/07/22 Interval History: more awake ,says only few words Review of Systems Intermittent weak, ?no fever? overnight, ?pinkish urine in the CBI bag. Physical Exam Vital Signs: Vital Signs: Last Vital Signs Temp 96.9 F 04/07/22 15:07 Pulse 74 04/07/22 15:07 Resp 18 04/07/22 15:07 BP 106/67 04/07/22 15:07 Pulse Ox 97 04/07/22 15:07 O2 Del Method 04/07/22 15:07 O2 Flow Rate 2.5 04/07/22 11:17 Oxygen Flow Rate 4 03/31/22 10:53 BMI result Body Mass Index 29.5 Appearance: mostly awake . cvs: rrr, [id number] . res: diminshed at bases, few scattered rales at bases. abd: no rebound or guarding ,nt, bs present. ext pulses present , no cyanosis , no edema . neuro: unable to obtain Objective Data Active Medications Albuterol/Ipratropium (Albuterol/Iprat 2.5/0.5mg 3 Ml Ampul.Neb) 3 ml INHALE Q4H PRN PRN Reason: sob Amlodipine Besylate (Amlodipine Besylate 10 Mg Tablet) 10 mg PO DAILY [facility]; Protocol Last Admin: 04/06/22 09:04 Dose: Not Given Documented By: BIANCA Non-Admin Reason: See Note Aspirin (Aspirin 81 Mg Tab.Chew) 81 mg PO DAILY [facility] Last Admin: 04/06/22 09:04 Dose: Not Given Documented By: BIANCA Non-Admin Reason: See Note Atorvastatin Calcium (Atorvastatin Calcium 40 Mg Tablet) 40 mg PO DAILY [facility] Last Admin: 04/06/22 09:04 Dose: Not Given Documented By: BIANCA Non-Admin Reason: See Note Dextrose (Dextrose 50 % 25 Gm/50 Ml Syringe) 25 gm IVPUSH Q15M PRN; Protocol PRN Reason: per Hypoglycemia Standing Ord. Ferrous Sulfate (Ferrous Sulfate 324 Mg Tablet.Dr) 324 mg PO DAILY [facility] Last Admin: 04/06/22 09:04 Dose: Not Given Documented By: BIANCA Non-Admin Reason: See Note Furosemide (Furosemide 40 Mg/4 Ml Vial) 40 mg IVPUSH Q12H [facility]; Protocol Last Admin: 04/07/22 05:45 Dose: 40 mg Documented By: ANTOIC Glucose (Glucose Gel 15 Gm Gel..Gram.) 15 gm PO Q15M PRN; Protocol PRN Reason: per Hypoglycemia Standing Ord. Magnesium Sulfate 5 meq/Calcium Gluconate 4.65 meq/Sodium Acetate 35 meq/Multivitamins 10.5 ml/ Trace Metals 1 ml/ Amino Acids/Electrolytes/Dextrose 960 mls @ 40 mls/hr IVCONT DAILY@1800 [facility] Stop: 04/07/22 17:59 Last Admin: 04/06/22 18:42 Dose: 40 mls/hr Documented By: HAM Thiamine HCl 400 mg/ Sodium (Chloride) 104 mls @ 208 mls/hr IV Q8H [facility] Last Infusion: 04/07/22 11:10 Dose: 0 mls/hr Documented By: BIANCA Magnesium Sulfate 5 meq/Calcium Gluconate 4.65 meq/Sodium Acetate 35 meq/Multivitamins 10 ml/ Trace Metals 1 ml/ Amino Acids/Electrolytes/Dextrose 1,039.75 mls @ 60 mls/hr IVCONT DAILY@1800 [facility] Stop: 04/08/22 11:20 Magnesium Sulfate 5 meq/Calcium Gluconate 4.65 meq/Sodium Acetate 35 meq/ Amino Acids/Electrolytes/Dextrose 1,028.75 mls @ 60 mls/hr IVCONT DAILY@1800 [facility] Stop: 04/08/22 17:59 Insulin Human Lispro (Insulin Lispro 100 Unit/Ml 3 Ml Vial) 0 unit SUBCUT QIDACHS [facility]; Protocol Last Admin: 04/07/22 11:59 Dose: Not Given Documented By: BIANCA Non-Admin Reason: poc oor Melatonin (Melatonin 3 Mg Tablet) 6 mg PO BEDTIME PRN PRN Reason: insomnia Nadolol (Nadolol 20 Mg Tablet) 20 mg PO DAILY [facility]; Protocol Last Admin: 04/06/22 09:05 Dose: Not Given Documented By: BIANCA Non-Admin Reason: See Note Olanzapine (Olanzapine 2.5 Mg Tablet) 2.5 mg PO BEDTIME [facility] Last Admin: 04/06/22 19:58 Dose: Not Given Documented By: CHRISTY Non-Admin Reason: NPO Pantoprazole Sodium (Pantoprazole Sodium 40 Mg/10 Ml Vial) 40 mg IVPUSH DAILY@0630 [facility] Last Admin: 04/07/22 10:33 Dose: 40 mg Documented By: MURPHYSOFKATELYN Rifaximin (Rifaximin 550 Mg Tablet) 550 mg PO BID [facility] Last Admin: 04/06/22 09:05 Dose: Not Given Documented By: MURPHYSOFKATELYN Non-Admin Reason: See Note Sodium Chloride (0.9 % Sodium Chloride Flush 3 Ml Syringe) 3 ml IVFLUSH QSHIFT [facility] Last Admin: 04/07/22 07:43 Dose: Not Given Documented By: BIANCA Non-Admin Reason: See Note Labs CBC & Chem 7: 04/07/22 13:21 04/07/22 06:01 Labs: Laboratory Results - last 24 hr 04/04/22 04/06/22 04/06/22 08:43 16:36 16:40 MCV MCH MCHC RDW Plt Count MPV Immature Gran % (Auto) Neut % (Auto) Lymph % (Auto) [place] % (Auto) Eos % (Auto) Baso % (Auto) Lymph # (Auto) [place] # (Auto) Eos # (Auto) Baso # (Auto) Abs Immat Gran (auto) Absolute Neuts (auto) Absolute Nucleated RBC Nucleated RBC % (auto) Anion Gap Estim Creat Clear Calc Estimated GFR POC Glucose 109 Fasting Glucose Calcium Phosphorus Magnesium Total Bilirubin AST ALT Alkaline Phosphatase B-Natriuretic Peptide 150 H Total Protein Albumin TSH Random Cortisol Respiratory Panel [place] Adenovirus (Rapid PCR) B.pert (TEM-PCR) B.parapertussis DNA PCR C. pneumoniae DNA (PCR) Coronavirus OC43 (PCR) Coronavirus HKU1 (PCR) Coronavirus 229E (PCR) Coronavirus NL63 (PCR) Hep B Core IgM Ab NON-REACTIVE Human Metapneumovir PCR Influenza A (RT-PCR) Influenza B (RT-PCR) M. pneumoniae (PCR) Parainfluenza 1 (PCR) Parainfluenza 2 (PCR) Parainfluenza 3 (PCR) Parainfluenza 4 (PCR) RSV (PCR) Entero/Rhino (PCR) SARS-CoV-2 RNA (RT-PCR) 04/06/22 04/06/22 04/07/22 19:46 21:05 06:01 MCV 83.7 MCH 27.6 MCHC 32.9 RDW 18.7 H Plt Count 57 L MPV 10.1 Immature Gran % (Auto) 0.4 Neut % (Auto) 92.3 H Lymph % (Auto) 3.3 L Clayton % (Auto) 3.4 Eos % (Auto) 0.4 Baso % (Auto) 0.2 Lymph # (Auto) 0.4 L [place] # (Auto) 0.4 Eos # (Auto) 0.0 Baso # (Auto) 0.0 Abs Immat Gran (auto) 0.04 H Absolute Neuts (auto) 9.9 H Absolute Nucleated RBC 0.000 Nucleated RBC % (auto) 0.0 Anion Gap Estim Creat Clear Calc Estimated GFR POC Glucose 131 H 144 H Fasting Glucose Calcium Phosphorus Magnesium Total Bilirubin AST ALT Alkaline Phosphatase B-Natriuretic Peptide Total Protein Albumin TSH Random Cortisol Respiratory Panel [place] Adenovirus (Rapid PCR) B.pert (TEM-PCR) B.parapertussis DNA PCR C. pneumoniae DNA (PCR) Coronavirus OC43 (PCR) Coronavirus HKU1 (PCR) Coronavirus 229E (PCR) Coronavirus NL63 (PCR) Hep B Core IgM Ab Human Metapneumovir PCR Influenza A (RT-PCR) Influenza B (RT-PCR) M. pneumoniae (PCR) Parainfluenza 1 (PCR) Parainfluenza 2 (PCR) Parainfluenza 3 (PCR) Parainfluenza 4 (PCR) RSV (PCR) Entero/Rhino (PCR) SARS-CoV-2 RNA (RT-PCR) 04/07/22 04/07/22 04/07/22 06:01 06:01 08:01 MCV MCH MCHC RDW Plt Count MPV Immature Gran % (Auto) Neut % (Auto) Lymph % (Auto) [place] % (Auto) Eos % (Auto) Baso % (Auto) Lymph # (Auto) [place] # (Auto) Eos # (Auto) Baso # (Auto) Abs Immat Gran (auto) Absolute Neuts (auto) Absolute Nucleated RBC Nucleated RBC % (auto) Anion Gap 14 Estim Creat Clear Calc 22.4 Estimated GFR 22 POC Glucose 137 H Fasting Glucose 174 H Calcium 8.3 L D Phosphorus 5.3 H Magnesium 1.8 Total Bilirubin 0.7 AST 33 ALT 30 Alkaline Phosphatase 242 H B-Natriuretic Peptide Total Protein 5.3 L Albumin 3.0 L TSH 4.36 H Random Cortisol 21.2 Respiratory Panel [place] Adenovirus (Rapid PCR) B.pert (TEM-PCR) B.parapertussis DNA PCR C. pneumoniae DNA (PCR) Coronavirus OC43 (PCR) Coronavirus HKU1 (PCR) Coronavirus 229E (PCR) Coronavirus NL63 (PCR) Hep B Core IgM Ab Human Metapneumovir PCR Influenza A (RT-PCR) Influenza B (RT-PCR) M. pneumoniae (PCR) Parainfluenza 1 (PCR) Parainfluenza 2 (PCR) Parainfluenza 3 (PCR) Parainfluenza 4 (PCR) RSV (PCR) Entero/Rhino (PCR) SARS-CoV-2 RNA (RT-PCR) 04/07/22 04/07/22 09:40 11:31 MCV MCH MCHC RDW Plt Count MPV Immature Gran % (Auto) Neut % (Auto) Lymph % (Auto) [place] % (Auto) Eos % (Auto) Baso % (Auto) Lymph # (Auto) [place] # (Auto) Eos # (Auto) Baso # (Auto) Abs Immat Gran (auto) Absolute Neuts (auto) Absolute Nucleated RBC Nucleated RBC % (auto) Anion Gap Estim Creat Clear Calc Estimated GFR POC Glucose 136 H Fasting Glucose Calcium Phosphorus Magnesium Total Bilirubin AST ALT Alkaline Phosphatase B-Natriuretic Peptide Total Protein Albumin TSH Random Cortisol Respiratory Panel [place] See Note Adenovirus (Rapid PCR) Not Detected B.pert (TEM-PCR) Not Detected B.parapertussis DNA PCR Not Detected C. pneumoniae DNA (PCR) Not Detected Coronavirus OC43 (PCR) Not Detected Coronavirus HKU1 (PCR) Not Detected Coronavirus 229E (PCR) Not Detected Coronavirus NL63 (PCR) Not Detected Hep B Core IgM Ab Human Metapneumovir PCR Not Detected Influenza A (RT-PCR) Not Detected Influenza B (RT-PCR) Not Detected M. pneumoniae (PCR) Not Detected Parainfluenza 1 (PCR) Not Detected Parainfluenza 2 (PCR) Not Detected Parainfluenza 3 (PCR) Not Detected Parainfluenza 4 (PCR) Not Detected RSV (PCR) Not Detected Entero/Rhino (PCR) Not Detected SARS-CoV-2 RNA (RT-PCR) Not Detected Assessment and Plan (1) Bladder cancer: Status: Acute (2) Acute respiratory failure with hypoxia: Status: Acute (3) CHF (congestive heart failure): Status: Acute Plan 76-year-old male presents unresponsive, hypotensive, hypothermic in the backdrop of active urinary sediment.? More cooperative with Zyprexa however somewhat agitated overnight.? Additional dose of Zyprexa given acute hypoxemic respiratory failure, possible secondary hypoalbuminemia ,possible liver disease /cirrosis ,? CHF ( unclear etiology) hypoxia improving echo pendin chest x-ray- Atelectasis /effusion, ABG reviewed- pH seems fine., ammonia Fine. daily weight,i/o, incentive spirometry, chest physiotherapy, Continue suctioning, Oxygen support. oxygen support-keep sats 92 % continue low dose lasix cardiology eval noted - Recommended to use p.r.n. IV Lasix if needed for respiratory status. toxic metabolic encephalopathy : Multifactorial( acute hypoxemic respiratory failure/ CHF/electrolytic abnormalities/ poor oral intake/ dementia) slightly more awake supportive care. CT head negative,mr reviewed by neuro neuro saw the patient-encephalopathy Possibly related to multifactorial basis with hypoxia, metabolic abnormalities and baseline dementia-added mri/eeg Hematuria -CBI with normal saline ...? Urine now clear -percutaneous nephrostomy tube draining clear urine since patient more cooperative urology called for follow up- Urology will follow-up with CBI and Discuss withfamily. UTI completed antibiotics -culture unreliable from nephrostomy tube.? urine culture noted- received 7 days of antibiotic, discussed with infectious disease- urine culture and chest x-ray: patient does not have any leukocytosis or fever, blood culture negative, off ceftriaxone. Hypothermia -no further hypothermia since 04/04 tsh boderline ,add t4, -follow rectal times Anemia/thrombocytopenia-multifactorial : poor oral inatke/hematuria also contributin,live dis -stable at this time between 7-8 range -follow daily CBCs Type 2 diabetes: flacutaing fs 110-160 -diet resumed.. .? limited intake Adjustedlispro coorectional scale. Dementia with agitated features -arousable this a.m. likely secondary to overnight Zyprexa -will hold p.o. dose this a.m. and follow -portable chest done - please see above in UTI section. possible failure to thrive: patient is not eating well from at least 2 weeks. Family currently does not wants central line so started PPN family does not want tube feeding also above management discussed with patient family in detail length they understand and in agreement with the above , healthcare proxy Mr. Menezes- they understand the patient prognosis is poor, currently continue conservative management, if patient condition further deteriorate please inform the family . also called [facility] for patient records. Full code Vena dynes boots-due to Anemia/thrombocytopenia ongoing hospitalization for treatment:acute hypoxemic respiratory failure, possible secondary to CHF. Quality Stroke Does the patient have a stroke diagnosis?: No VTE Prior VTE?: No VTE Risk Level:: Medical - moderate - high VTE Device Contraindication: N/A - Device Ordered VTE Drug Contraindication: Treatment Not Indicated
--- NOTE | 2022-04-07 15:23 | PM.CNCAR ---
History of Present Illness History of Present Illness Date of Service: 04/07/22 Requesting physician: Paolo Berry Chief complaint: Hypoxia, ?CHF Narrative: [age] gentleman who we have been asked to assess for congestive heart failure. He has a background history of schizophrenia, bladder cancer, cirrhosis of liver, anemia, chronic kidney disease and diabetes who presented with unresponsiveness, hypotension and hypothermia. He was noticed to be anemic and was given blood. Subsequent to that he had episode of hypoxia which was thought to be secondary to congestive heart failure. His chest x-ray showed effusion on the right side potential atelectasis. No significant heart failure was noticed to cause significant hypoxia. His mental status has been poor and is difficult to say whether he aspirated or not. Currently patient is arousable but quickly goes back to sleep. Was unable to give any history. Her appeared comfortable. Documented saturations are 97% room air. [facility] Family History Family history: reviewed and not pertinent Social History Social History Household Members: None Housing: Assisted Living Facility Patient Tobacco Use Status: Never used Tobacco service: No Current occupational status: disabled [employer] Allergies Allergy/AdvReac Type Severity Reaction Status Date / Time No Known Allergies Allergy Verified 03/31/22 10:34 Active Medications: Current Medications Albuterol/Ipratropium (Albuterol/Iprat 2.5/0.5mg 3 Ml Ampul.Neb) 3 ml INHALE Q4H PRN PRN Reason: sob Amlodipine Besylate (Amlodipine Besylate 10 Mg Tablet) 10 mg PO DAILY [facility]; Protocol Last Admin: 04/06/22 09:04 Dose: Not Given Aspirin (Aspirin 81 Mg Tab.Chew) 81 mg PO DAILY [facility] Last Admin: 04/06/22 09:04 Dose: Not Given Atorvastatin Calcium (Atorvastatin Calcium 40 Mg Tablet) 40 mg PO DAILY [facility] Last Admin: 04/06/22 09:04 Dose: Not Given Dextrose (Dextrose 50 % 25 Gm/50 Ml Syringe) 25 gm IVPUSH Q15M PRN; Protocol PRN Reason: per Hypoglycemia Standing Ord. Ferrous Sulfate (Ferrous Sulfate 324 Mg Tablet.Dr) 324 mg PO DAILY [facility] Last Admin: 04/06/22 09:04 Dose: Not Given Furosemide (Furosemide 40 Mg/4 Ml Vial) 40 mg IVPUSH Q12H [place]; Protocol Last Admin: 04/07/22 05:45 Dose: 40 mg Glucose (Glucose Gel 15 Gm Gel..Gram.) 15 gm PO Q15M PRN; Protocol PRN Reason: per Hypoglycemia Standing Ord. Magnesium Sulfate 5 meq/Calcium Gluconate 4.65 meq/Sodium Acetate 35 meq/Multivitamins 10.5 ml/ Trace Metals 1 ml/ Amino Acids/Electrolytes/Dextrose 960 mls @ 40 mls/hr IVCONT DAILY@1800 [facility] Stop: 04/07/22 17:59 Last Admin: 04/06/22 18:42 Dose: 40 mls/hr Thiamine HCl 400 mg/ Sodium (Chloride) 104 mls @ 208 mls/hr IV Q8H [facility] Last Infusion: 04/07/22 11:10 Dose: Infused Magnesium Sulfate 5 meq/Calcium Gluconate 4.65 meq/Sodium Acetate 35 meq/Multivitamins 10 ml/ Trace Metals 1 ml/ Amino Acids/Electrolytes/Dextrose 1,039.75 mls @ 60 mls/hr IVCONT DAILY@1800 [facility] Stop: 04/08/22 11:20 Magnesium Sulfate 5 meq/Calcium Gluconate 4.65 meq/Sodium Acetate 35 meq/ Amino Acids/Electrolytes/Dextrose 1,028.75 mls @ 60 mls/hr IVCONT DAILY@1800 [facility] Stop: 04/08/22 17:59 Insulin Human Lispro (Insulin Lispro 100 Unit/Ml 3 Ml Vial) 0 unit SUBCUT QIDACHS [facility]; Protocol Last Admin: 04/07/22 11:59 Dose: Not Given Melatonin (Melatonin 3 Mg Tablet) 6 mg PO BEDTIME PRN PRN Reason: insomnia Nadolol (Nadolol 20 Mg Tablet) 20 mg PO DAILY [facility]; Protocol Last Admin: 04/06/22 09:05 Dose: Not Given Olanzapine (Olanzapine 2.5 Mg Tablet) 2.5 mg PO BEDTIME [facility] Last Admin: 04/06/22 19:58 Dose: Not Given Pantoprazole Sodium (Pantoprazole Sodium 40 Mg/10 Ml Vial) 40 mg IVPUSH DAILY@0630 [facility] Last Admin: 04/07/22 10:33 Dose: 40 mg Rifaximin (Rifaximin 550 Mg Tablet) 550 mg PO BID [facility] Last Admin: 04/06/22 09:05 Dose: Not Given Sodium Chloride (0.9 % Sodium Chloride Flush 3 Ml Syringe) 3 ml IVFLUSH QSHIFT [facility] Last Admin: 04/07/22 07:43 Dose: Not Given Home Medications Medication Instructions Recorded Confirmed Last Taken Type acetaminophen 325 mg tablet 650 mg PO Q4H PRN Pain 03/31/22 03/31/22 Unknown History amlodipine 10 mg tablet 1 tab PO DAILY 03/31/22 03/31/22 Unknown History aspirin 81 mg chewable tablet 81 mg PO DAILY 03/31/22 03/31/22 Unknown History atorvastatin 40 mg tablet 1 tab PO DAILY 03/31/22 03/31/22 Unknown History clotrimazole 1 % topical cream 1 appl topical BID PRN Rash 03/31/22 03/31/22 Unknown History docusate sodium 100 mg tablet 100 mg PO DAILY 03/31/22 03/31/22 Unknown History dulaglutide 0.75 mg/0.5 mL 0.75 mg subcut WE 03/31/22 03/31/22 Unknown History subcutaneous pen injector (Trulicity) ferrous sulfate 325 mg (65 mg 325 mg PO DAILY 03/31/22 03/31/22 Unknown History iron) tablet insulin glargine-yfgn 100 unit/mL 14 unit subcut DAILY 03/31/22 03/31/22 Unknown History subcutaneous solution insulin lispro 100 unit/mL 0 sliding scale dose subcut QIDACHS 03/31/22 03/31/22 Unknown History subcutaneous solution multivitamin 1 tab PO DAILY 03/31/22 03/31/22 Unknown History nadolol 20 mg tablet 1 tab PO DAILY 03/31/22 03/31/22 Unknown History olanzapine 5 mg tablet 1 tab PO BEDTIME 03/31/22 03/31/22 Unknown History ondansetron HCl 4 mg tablet 1 tab PO Q8H PRN Nausea 03/31/22 03/31/22 Unknown History rifaximin 550 mg tablet (Xifaxan) 1 tab PO BID 03/31/22 03/31/22 Unknown History sennosides 8.6 mg tablet (senna) 8.6 mg PO BEDTIME 03/31/22 03/31/22 Unknown History sodium bicarbonate 650 mg tablet 650 mg PO BID 03/31/22 03/31/22 Unknown History thiamine HCl (vitamin B1) 50 mg 50 mg PO DAILY 03/31/22 03/31/22 Unknown History tablet triamcinolone acetonide 0.1 % 1 applic topical BID PRN Rash 03/31/22 03/31/22 Unknown History topical cream Physical Exam Vital Signs: Vital Signs: Last Vital Signs Temp 96.9 F 04/07/22 15:07 Pulse 74 04/07/22 15:07 Resp 18 04/07/22 15:07 BP 106/67 04/07/22 15:07 Pulse Ox 97 04/07/22 15:07 O2 Del Method 04/07/22 15:07 O2 Flow Rate 2.5 04/07/22 11:17 Oxygen Flow Rate 4 03/31/22 10:53 BMI result Body Mass Index 29.5 GENERAL APPEARANCE: in no acute distress, sleepy but arousable. NECK: no carotid bruit, no jugular venous distention. SKIN: no suspicious lesions, warm and dry. HEART: no murmurs, regular rate and rhythm. LUNGS: clear to auscultation anteriorly. ABDOMEN: soft, nontender. PERIPHERAL PULSES: equal. NEUROLOGIC: Sleepy but arousable. Objective Labs and Meds Result diagrams: 04/07/22 13:21 04/07/22 06:01 Lab results: Laboratory Results - last 24 hr 04/04/22 04/06/22 04/06/22 08:43 16:36 16:40 WBC RBC Hgb Hct MCV MCH MCHC RDW Plt Count MPV Immature Gran % (Auto) Neut % (Auto) Lymph % (Auto) [place] % (Auto) Eos % (Auto) Baso % (Auto) Lymph # (Auto) [place] # (Auto) Eos # (Auto) Baso # (Auto) Abs Immat Gran (auto) Absolute Neuts (auto) Absolute Nucleated RBC Nucleated RBC % (auto) Sodium Potassium Chloride Carbon Dioxide Anion Gap BUN Creatinine Estim Creat Clear Calc Estimated GFR POC Glucose 109 Fasting Glucose Calcium Phosphorus Magnesium Total Bilirubin AST ALT Alkaline Phosphatase B-Natriuretic Peptide 150 H Total Protein Albumin TSH Random Cortisol Respiratory Panel [place] Adenovirus (Rapid PCR) B.pert (TEM-PCR) B.parapertussis DNA PCR C. pneumoniae DNA (PCR) Coronavirus OC43 (PCR) Coronavirus HKU1 (PCR) Coronavirus 229E (PCR) Coronavirus NL63 (PCR) Hep B Core IgM Ab NON-REACTIVE Human Metapneumovir PCR Influenza A (RT-PCR) Influenza B (RT-PCR) M. pneumoniae (PCR) Parainfluenza 1 (PCR) Parainfluenza 2 (PCR) Parainfluenza 3 (PCR) Parainfluenza 4 (PCR) RSV (PCR) Entero/Rhino (PCR) SARS-CoV-2 RNA (RT-PCR) 04/06/22 04/06/22 04/07/22 19:46 21:05 06:01 WBC 10.8 RBC 2.83 L Hgb 7.8 L Hct 23.7 L MCV 83.7 MCH 27.6 MCHC 32.9 RDW 18.7 H Plt Count 57 L MPV 10.1 Immature Gran % (Auto) 0.4 Neut % (Auto) 92.3 H Lymph % (Auto) 3.3 L [place] % (Auto) 3.4 Eos % (Auto) 0.4 Baso % (Auto) 0.2 Lymph # (Auto) 0.4 L [place] # (Auto) 0.4 Eos # (Auto) 0.0 Baso # (Auto) 0.0 Abs Immat Gran (auto) 0.04 H Absolute Neuts (auto) 9.9 H Absolute Nucleated RBC 0.000 Nucleated RBC % (auto) 0.0 Sodium Potassium Chloride Carbon Dioxide Anion Gap BUN Creatinine Estim Creat Clear Calc Estimated GFR POC Glucose 131 H 144 H Fasting Glucose Calcium Phosphorus Magnesium Total Bilirubin AST ALT Alkaline Phosphatase B-Natriuretic Peptide Total Protein Albumin TSH Random Cortisol Respiratory Panel [place] Adenovirus (Rapid PCR) B.pert (TEM-PCR) B.parapertussis DNA PCR C. pneumoniae DNA (PCR) Coronavirus OC43 (PCR) Coronavirus HKU1 (PCR) Coronavirus 229E (PCR) Coronavirus NL63 (PCR) Hep B Core IgM Ab Human Metapneumovir PCR Influenza A (RT-PCR) Influenza B (RT-PCR) M. pneumoniae (PCR) Parainfluenza 1 (PCR) Parainfluenza 2 (PCR) Parainfluenza 3 (PCR) Parainfluenza 4 (PCR) RSV (PCR) Entero/Rhino (PCR) SARS-CoV-2 RNA (RT-PCR) 04/07/22 04/07/22 04/07/22 06:01 06:01 08:01 WBC RBC Hgb Hct MCV MCH MCHC RDW Plt Count MPV Immature Gran % (Auto) Neut % (Auto) Lymph % (Auto) [place] % (Auto) Eos % (Auto) Baso % (Auto) Lymph # (Auto) [place] # (Auto) Eos # (Auto) Baso # (Auto) Abs Immat Gran (auto) Absolute Neuts (auto) Absolute Nucleated RBC Nucleated RBC % (auto) Sodium 137 Potassium 3.9 Chloride 109 H Carbon Dioxide 18 L Anion Gap 14 BUN 59 H Creatinine 2.79 H Estim Creat Clear Calc 22.4 Estimated GFR 22 POC Glucose 137 H Fasting Glucose 174 H Calcium 8.3 L D Phosphorus 5.3 H Magnesium 1.8 Total Bilirubin 0.7 AST 33 ALT 30 Alkaline Phosphatase 242 H B-Natriuretic Peptide Total Protein 5.3 L Albumin 3.0 L TSH 4.36 H Random Cortisol 21.2 Respiratory Panel [place] Adenovirus (Rapid PCR) B.pert (TEM-PCR) B.parapertussis DNA PCR C. pneumoniae DNA (PCR) Coronavirus OC43 (PCR) Coronavirus HKU1 (PCR) Coronavirus 229E (PCR) Coronavirus NL63 (PCR) Hep B Core IgM Ab Human Metapneumovir PCR Influenza A (RT-PCR) Influenza B (RT-PCR) M. pneumoniae (PCR) Parainfluenza 1 (PCR) Parainfluenza 2 (PCR) Parainfluenza 3 (PCR) Parainfluenza 4 (PCR) RSV (PCR) Entero/Rhino (PCR) SARS-CoV-2 RNA (RT-PCR) 04/07/22 04/07/22 04/07/22 09:40 11:31 13:21 WBC RBC Hgb 7.5 L Hct 22.8 L MCV MCH MCHC RDW Plt Count MPV Immature Gran % (Auto) Neut % (Auto) Lymph % (Auto) [place] % (Auto) Eos % (Auto) Baso % (Auto) Lymph # (Auto) [place] # (Auto) Eos # (Auto) Baso # (Auto) Abs Immat Gran (auto) Absolute Neuts (auto) Absolute Nucleated RBC Nucleated RBC % (auto) Sodium Potassium Chloride Carbon Dioxide Anion Gap BUN Creatinine Estim Creat Clear Calc Estimated GFR POC Glucose 136 H Fasting Glucose Calcium Phosphorus Magnesium Total Bilirubin AST ALT Alkaline Phosphatase B-Natriuretic Peptide Total Protein Albumin TSH Random Cortisol Respiratory Panel [place] See Note Adenovirus (Rapid PCR) Not Detected B.pert (TEM-PCR) Not Detected B.parapertussis DNA PCR Not Detected C. pneumoniae DNA (PCR) Not Detected Coronavirus OC43 (PCR) Not Detected Coronavirus HKU1 (PCR) Not Detected Coronavirus 229E (PCR) Not Detected Coronavirus NL63 (PCR) Not Detected Hep B Core IgM Ab Human Metapneumovir PCR Not Detected Influenza A (RT-PCR) Not Detected Influenza B (RT-PCR) Not Detected M. pneumoniae (PCR) Not Detected Parainfluenza 1 (PCR) Not Detected Parainfluenza 2 (PCR) Not Detected Parainfluenza 3 (PCR) Not Detected Parainfluenza 4 (PCR) Not Detected RSV (PCR) Not Detected Entero/Rhino (PCR) Not Detected SARS-CoV-2 RNA (RT-PCR) Not Detected Imaging Radiologist's impression: Impressions Brain MRI 04/06/22 19:35 IMPRESSION: 1. No acute infarct or other acute intracranial abnormality. 2. Ventriculomegaly with slightly disproportionate ventricular enlargement relative to the degree of cerebral volume loss with sulcal crowding at the vertex. Recommend clinical correlation for normal pressure hydrocephalus. 3. Moderate chronic microangiopathy. 4. Encephalomalacia and gliosis in the lateral right temporal lobe, possibly posttraumatic. 5. Abnormal flow related signal of the distal cervical and intradural right vertebral artery related to known cervical occlusion better assessed on preceding CTA. Assessment and Plan (1) Hypoxia: Status: Acute Plan [age] gentleman with chronic kidney disease and cirrhosis of liver who has been admitted to hospital with unresponsiveness, hypothermia and hypotension. Etiology of hyperkalemia is likely infection and he is being treated for urinary tract infection at this point. We have been asked to comment about congestive heart failure. He received blood for anemia and was noted to have hypoxia later on. Chest x-ray did not show overt pulmonary edema to explain hypoxia. Currently appears euvolemic. If he has change in his respiratory status then in repeat imaging are chest x-ray should be done. Potential cause for this can be aspiration. Transfusion reaction can have a similar presentation 2. In any case right now he is comfortable and not significantly volume overloaded. He has cirrhosis of liver which can lead to pleural effusions. Fairly complex situation. If he has change in respiratory status then we can reassess him and give diuretics if required. Thank you for allowing me to participate in the care of your patient. Please feel free to contact me if you have any questions. Procedures Date of Service Date of Service: 04/07/22
[2022-04-07 16:02] LABS: Free T4 (Free Thyroxine) 0.69 ng/dL (0.71-1.85)
[2022-04-07 16:09] LABS: Glucose, Whole Blood 141 mg/dL (60-115)
--- NOTE | 2022-04-07 16:26 | MHC.CM.PN ---
DP return to [facility] via S. No dc today. Patient received an ECHO today. An EEG was also planned for today.
[2022-04-07] MEDS: Phytonadione (Vit K1) 10 MG in 0.9 % Sodium Chloride 50 ML 51 MG IV (16:44)
--- NOTE | 2022-04-07 17:06 | P.CNPS_ITS ---
History of Present Illness Date of Service: 04/07/2022 Chief Complaint: Hypoxia, ?CHF Reason for Consult: schizoaffective disorder, agitation HPI Narrative: per medicine note of 04/07: 76-year-old male presents unresponsive, hypotensive, hypothermic in the backdrop of active urinary sediment.? More cooperative with Zyprexa however somewhat agitated overnight.? Additional dose of Zyprexa given ?acute hypoxemic respiratory failure,? possible secondary hypoalbuminemia ,possible liver disease /cirrosis ,? CHF ( unclear etiology) hypoxia improving echo pendin ?chest x-ray-? Atelectasis /effusion, ABG reviewed- pH seems fine., ammonia? Fine. ?daily weight,i/o, incentive spirometry, chest physiotherapy,? Continue suctioning,? Oxygen support. ?oxygen support-keep sats 92 % continue low dose lasix cardiology eval noted -? Recommended to use p.r.n. IV Lasix if needed for respiratory status. toxic metabolic encephalopathy :? Multifactorial( acute hypoxemic respiratory failure/ CHF/electrolytic abnormalities/ poor oral intake/ dementia) slightly more awake ?supportive care. ?CT head negative,mr reviewed by neuro neuro saw the patient-encephalopathy Possibly? related to multifactorial basis with? hypoxia, metabolic abnormalities and baseline dementia-added mri/eeg Hematuria -CBI with normal saline ...? Urine now clear -percutaneous nephrostomy tube draining clear urine since patient more cooperative urology called for follow up-? Urology will follow-up with CBI and ? Discuss withfamily. ? UTI completed antibiotics -culture unreliable from nephrostomy tube.? ?urine culture noted- received 7 days of antibiotic, discussed with infectious disease- urine culture and chest x-ray: patient does not have any leukocytosis or fever, blood culture negative, off? ceftriaxone. Hypothermia -no further hypothermia since 04/04 tsh boderline ,add t4, -follow rectal times ?Anemia/thrombocytopenia-multifactorial : poor oral inatke/hematuria also contributin,live dis -stable at this time between 7-8 range -follow daily CBCs Type 2 diabetes: flacutaing fs 110-160 -diet resumed.. .? limited intake ? Adjustedlispro coorectional scale. ?Dementia with agitated features -arousable this a.m. likely secondary to overnight Zyprexa -will hold p.o. dose this a.m. and follow -portable chest done - please see above in UTI section. ?possible failure to thrive:? patient is not eating well from at least 2 weeks. ? Family currently does not wants central line so started PPN ?family does not want tube feeding also ?above management discussed with patient family in detail length they understand and in agreement with the above , healthcare proxy Mr. Menezes- they understand the patient prognosis is poor, currently continue conservative management, if patient condition further deteriorate please inform the family . also called [facility] for patient records. Full code Carlee roman-due to? Anemia/thrombocytopenia ongoing hospitalization for treatment:acute hypoxemic respiratory failure,? possible secondary to CHF. PSYCH: pt seen reclining in his hospital bed. he is non-verbal with MD and in general does not attempt to communicate with MD in any way, sitting and looking about the room. RN has experienced no episodes of agitation with pt this afternoon. MAR reviewed, pt is now NPO and is unable to take zyprexa unless via IM. IM dosing cannot be scheduled. per MAR, pt had recently been receiving IV haldol, but it had been discontinued. per chart review, in particular psych consult note of jose guadalupe 04/06, pt's family report he doesn't do well on haldol, and had asked to remain with zyprexa. unfortunately, at present, haldol is the only antipsychotic which this patient might be given on a scheduled basis, as it is IV (IM medication for behavioral disturbance may only be given PRN, as a rule). Past Psychiatric History: schizophrenia, maintained for years on zyprexa Medical Evaluation Reviewed: Yes Diagnostics Vital Signs (24Hr): Vital Signs - 24 hr 04/06/22 20:00 04/07/22 00:00 04/07/22 07:43 Temperature 97.6 F 97.0 F 95.8 F L Pulse Rate 72 71 62 Respiratory Rate 21 H 16 20 Blood Pressure 117/68 121/68 103/55 L Pulse Oximetry 97 98 98 Oxygen Delivery Method Nasal Cannula Nasal Cannula with ETCO2 Nasal Cannula Oxygen Flow Rate 6 6 04/07/22 11:17 04/07/22 15:07 Temperature 98.8 F 96.9 F Pulse Rate 75 74 Respiratory Rate 20 18 Blood Pressure 103/55 L 106/67 Pulse Oximetry 96 97 Oxygen Delivery Method Nasal Cannula Room Air Oxygen Flow Rate 2.5 BMI result Body Mass Index 29.5 Labs Results: 04/07/22 13:21 04/07/22 06:01 Labs: Laboratory Results - last 48 hr 04/04/22 04/05/22 04/06/22 08:43 20:44 01:01 WBC RBC Hgb Hct MCV MCH MCHC RDW Plt Count MPV Immature Gran % (Auto) Neut % (Auto) Lymph % (Auto) Upton % (Auto) Eos % (Auto) Baso % (Auto) Lymph # (Auto) Upton # (Auto) Eos # (Auto) Baso # (Auto) Abs Immat Gran (auto) Absolute Neuts (auto) Absolute Nucleated RBC Nucleated RBC % (auto) O2 Saturation 88.0 ABG pH at Pt Temp 7.37 ABG pCO2 at Pt Temp 27 L ABG pO2 at Pt Temp 61 L ABG HCO3 16 L ABG Base Excess (Actual) -7.6 Sodium Potassium Chloride Carbon Dioxide Anion Gap BUN Creatinine Estim Creat Clear Calc Estimated GFR POC Glucose 93 Fasting Glucose Calcium Phosphorus Magnesium Total Bilirubin AST ALT Alkaline Phosphatase Ammonia B-Natriuretic Peptide Total Protein Albumin TSH Free T4 Random Cortisol Respiratory Panel Mosley Adenovirus (Rapid PCR) B.pert (TEM-PCR) B.parapertussis DNA PCR C. pneumoniae DNA (PCR) Coronavirus OC43 (PCR) Coronavirus HKU1 (PCR) Coronavirus 229E (PCR) Coronavirus NL63 (PCR) Hep B Core IgM Ab NON-REACTIVE Human Metapneumovir PCR Influenza A (RT-PCR) Influenza B (RT-PCR) M. pneumoniae (PCR) Parainfluenza 1 (PCR) Parainfluenza 2 (PCR) Parainfluenza 3 (PCR) Parainfluenza 4 (PCR) RSV (PCR) Entero/Rhino (PCR) SARS-CoV-2 RNA (RT-PCR) 04/06/22 04/06/22 04/06/22 05:51 05:51 08:42 WBC 9.9 RBC 3.10 L Hgb 8.6 L Hct 26.1 L MCV 84.2 MCH 27.7 MCHC 33.0 RDW 18.6 H Plt Count 57 L D MPV 10.5 Immature Gran % (Auto) 0.8 H Neut % (Auto) 86.0 H Lymph % (Auto) 5.8 L Upton % (Auto) 6.0 Eos % (Auto) 1.2 Baso % (Auto) 0.2 Lymph # (Auto) 0.6 L Upton # (Auto) 0.6 Eos # (Auto) 0.1 Baso # (Auto) 0.0 Abs Immat Gran (auto) 0.08 H Absolute Neuts (auto) 8.5 H Absolute Nucleated RBC 0.030 H Nucleated RBC % (auto) 0.3 H O2 Saturation ABG pH at Pt Temp ABG pCO2 at Pt Temp ABG pO2 at Pt Temp ABG HCO3 ABG Base Excess (Actual) Sodium 135 Potassium 4.3 Chloride 111 H Carbon Dioxide 16 L Anion Gap 12 BUN 53 H Creatinine 2.76 H Estim Creat Clear Calc 22.6 Estimated GFR 22 POC Glucose 139 H Fasting Glucose 156 H Calcium 7.8 L Phosphorus 5.1 H Magnesium 1.7 Total Bilirubin 0.5 AST 38 H ALT 33 Alkaline Phosphatase 248 H Ammonia B-Natriuretic Peptide Total Protein 5.0 L Albumin 2.4 L TSH Free T4 Random Cortisol Respiratory Panel Mosley Adenovirus (Rapid PCR) B.pert (TEM-PCR) B.parapertussis DNA PCR C. pneumoniae DNA (PCR) Coronavirus OC43 (PCR) Coronavirus HKU1 (PCR) Coronavirus 229E (PCR) Coronavirus NL63 (PCR) Hep B Core IgM Ab Human Metapneumovir PCR Influenza A (RT-PCR) Influenza B (RT-PCR) M. pneumoniae (PCR) Parainfluenza 1 (PCR) Parainfluenza 2 (PCR) Parainfluenza 3 (PCR) Parainfluenza 4 (PCR) RSV (PCR) Entero/Rhino (PCR) SARS-CoV-2 RNA (RT-PCR) 04/06/22 04/06/22 04/06/22 09:30 09:34 11:37 WBC RBC Hgb Hct MCV MCH MCHC RDW Plt Count MPV Immature Gran % (Auto) Neut % (Auto) Lymph % (Auto) Upton % (Auto) Eos % (Auto) Baso % (Auto) Lymph # (Auto) Upton # (Auto) Eos # (Auto) Baso # (Auto) Abs Immat Gran (auto) Absolute Neuts (auto) Absolute Nucleated RBC Nucleated RBC % (auto) O2 Saturation 80.0 ABG pH at Pt Temp 7.38 ABG pCO2 at Pt Temp 26 L ABG pO2 at Pt Temp 55 L ABG HCO3 15 L ABG Base Excess (Actual) -8.2 Sodium Potassium Chloride Carbon Dioxide Anion Gap BUN Creatinine Estim Creat Clear Calc Estimated GFR POC Glucose 150 H 159 H Fasting Glucose Calcium Phosphorus Magnesium Total Bilirubin AST ALT Alkaline Phosphatase Ammonia B-Natriuretic Peptide Total Protein Albumin TSH Free T4 Random Cortisol Respiratory Panel Mosley Adenovirus (Rapid PCR) B.pert (TEM-PCR) B.parapertussis DNA PCR C. pneumoniae DNA (PCR) Coronavirus OC43 (PCR) Coronavirus HKU1 (PCR) Coronavirus 229E (PCR) Coronavirus NL63 (PCR) Hep B Core IgM Ab Human Metapneumovir PCR Influenza A (RT-PCR) Influenza B (RT-PCR) M. pneumoniae (PCR) Parainfluenza 1 (PCR) Parainfluenza 2 (PCR) Parainfluenza 3 (PCR) Parainfluenza 4 (PCR) RSV (PCR) Entero/Rhino (PCR) SARS-CoV-2 RNA (RT-PCR) 04/06/22 04/06/22 04/06/22 11:51 16:36 16:40 WBC RBC Hgb Hct MCV MCH MCHC RDW Plt Count MPV Immature Gran % (Auto) Neut % (Auto) Lymph % (Auto) Upton % (Auto) Eos % (Auto) Baso % (Auto) Lymph # (Auto) Upton # (Auto) Eos # (Auto) Baso # (Auto) Abs Immat Gran (auto) Absolute Neuts (auto) Absolute Nucleated RBC Nucleated RBC % (auto) O2 Saturation ABG pH at Pt Temp ABG pCO2 at Pt Temp ABG pO2 at Pt Temp ABG HCO3 ABG Base Excess (Actual) Sodium Potassium Chloride Carbon Dioxide Anion Gap BUN Creatinine Estim Creat Clear Calc Estimated GFR POC Glucose 109 Fasting Glucose Calcium Phosphorus Magnesium Total Bilirubin AST ALT Alkaline Phosphatase Ammonia 38 B-Natriuretic Peptide 150 H Total Protein Albumin TSH Free T4 Random Cortisol Respiratory Panel Mosley Adenovirus (Rapid PCR) B.pert (TEM-PCR) B.parapertussis DNA PCR C. pneumoniae DNA (PCR) Coronavirus OC43 (PCR) Coronavirus HKU1 (PCR) Coronavirus 229E (PCR) Coronavirus NL63 (PCR) Hep B Core IgM Ab Human Metapneumovir PCR Influenza A (RT-PCR) Influenza B (RT-PCR) M. pneumoniae (PCR) Parainfluenza 1 (PCR) Parainfluenza 2 (PCR) Parainfluenza 3 (PCR) Parainfluenza 4 (PCR) RSV (PCR) Entero/Rhino (PCR) SARS-CoV-2 RNA (RT-PCR) 04/06/22 04/06/22 04/07/22 19:46 21:05 06:01 WBC 10.8 RBC 2.83 L Hgb 7.8 L Hct 23.7 L MCV 83.7 MCH 27.6 MCHC 32.9 RDW 18.7 H Plt Count 57 L MPV 10.1 Immature Gran % (Auto) 0.4 Neut % (Auto) 92.3 H Lymph % (Auto) 3.3 L Upton % (Auto) 3.4 Eos % (Auto) 0.4 Baso % (Auto) 0.2 Lymph # (Auto) 0.4 L Upton # (Auto) 0.4 Eos # (Auto) 0.0 Baso # (Auto) 0.0 Abs Immat Gran (auto) 0.04 H Absolute Neuts (auto) 9.9 H Absolute Nucleated RBC 0.000 Nucleated RBC % (auto) 0.0 O2 Saturation ABG pH at Pt Temp ABG pCO2 at Pt Temp ABG pO2 at Pt Temp ABG HCO3 ABG Base Excess (Actual) Sodium Potassium Chloride Carbon Dioxide Anion Gap BUN Creatinine Estim Creat Clear Calc Estimated GFR POC Glucose 131 H 144 H Fasting Glucose Calcium Phosphorus Magnesium Total Bilirubin AST ALT Alkaline Phosphatase Ammonia B-Natriuretic Peptide Total Protein Albumin TSH Free T4 Random Cortisol Respiratory Panel Mosley Adenovirus (Rapid PCR) B.pert (TEM-PCR) B.parapertussis DNA PCR C. pneumoniae DNA (PCR) Coronavirus OC43 (PCR) Coronavirus HKU1 (PCR) Coronavirus 229E (PCR) Coronavirus NL63 (PCR) Hep B Core IgM Ab Human Metapneumovir PCR Influenza A (RT-PCR) Influenza B (RT-PCR) M. pneumoniae (PCR) Parainfluenza 1 (PCR) Parainfluenza 2 (PCR) Parainfluenza 3 (PCR) Parainfluenza 4 (PCR) RSV (PCR) Entero/Rhino (PCR) SARS-CoV-2 RNA (RT-PCR) 04/07/22 04/07/22 04/07/22 06:01 06:01 08:01 WBC RBC Hgb Hct MCV MCH MCHC RDW Plt Count MPV Immature Gran % (Auto) Neut % (Auto) Lymph % (Auto) Upton % (Auto) Eos % (Auto) Baso % (Auto) Lymph # (Auto) Upton # (Auto) Eos # (Auto) Baso # (Auto) Abs Immat Gran (auto) Absolute Neuts (auto) Absolute Nucleated RBC Nucleated RBC % (auto) O2 Saturation ABG pH at Pt Temp ABG pCO2 at Pt Temp ABG pO2 at Pt Temp ABG HCO3 ABG Base Excess (Actual) Sodium 137 Potassium 3.9 Chloride 109 H Carbon Dioxide 18 L Anion Gap 14 BUN 59 H Creatinine 2.79 H Estim Creat Clear Calc 22.4 Estimated GFR 22 POC Glucose 137 H Fasting Glucose 174 H Calcium 8.3 L D Phosphorus 5.3 H Magnesium 1.8 Total Bilirubin 0.7 AST 33 ALT 30 Alkaline Phosphatase 242 H Ammonia B-Natriuretic Peptide Total Protein 5.3 L Albumin 3.0 L TSH 4.36 H Free T4 0.69 L Random Cortisol 21.2 Respiratory Panel Mosley Adenovirus (Rapid PCR) B.pert (TEM-PCR) B.parapertussis DNA PCR C. pneumoniae DNA (PCR) Coronavirus OC43 (PCR) Coronavirus HKU1 (PCR) Coronavirus 229E (PCR) Coronavirus NL63 (PCR) Hep B Core IgM Ab Human Metapneumovir PCR Influenza A (RT-PCR) Influenza B (RT-PCR) M. pneumoniae (PCR) Parainfluenza 1 (PCR) Parainfluenza 2 (PCR) Parainfluenza 3 (PCR) Parainfluenza 4 (PCR) RSV (PCR) Entero/Rhino (PCR) SARS-CoV-2 RNA (RT-PCR) 04/07/22 04/07/22 04/07/22 09:40 11:31 13:21 WBC RBC Hgb 7.5 L Hct 22.8 L MCV MCH MCHC RDW Plt Count MPV Immature Gran % (Auto) Neut % (Auto) Lymph % (Auto) Upton % (Auto) Eos % (Auto) Baso % (Auto) Lymph # (Auto) Upton # (Auto) Eos # (Auto) Baso # (Auto) Abs Immat Gran (auto) Absolute Neuts (auto) Absolute Nucleated RBC Nucleated RBC % (auto) O2 Saturation ABG pH at Pt Temp ABG pCO2 at Pt Temp ABG pO2 at Pt Temp ABG HCO3 ABG Base Excess (Actual) Sodium Potassium Chloride Carbon Dioxide Anion Gap BUN Creatinine Estim Creat Clear Calc Estimated GFR POC Glucose 136 H Fasting Glucose Calcium Phosphorus Magnesium Total Bilirubin AST ALT Alkaline Phosphatase Ammonia B-Natriuretic Peptide Total Protein Albumin TSH Free T4 Random Cortisol Respiratory Panel Mosley See Note Adenovirus (Rapid PCR) Not Detected B.pert (TEM-PCR) Not Detected B.parapertussis DNA PCR Not Detected C. pneumoniae DNA (PCR) Not Detected Coronavirus OC43 (PCR) Not Detected Coronavirus HKU1 (PCR) Not Detected Coronavirus 229E (PCR) Not Detected Coronavirus NL63 (PCR) Not Detected Hep B Core IgM Ab Human Metapneumovir PCR Not Detected Influenza A (RT-PCR) Not Detected Influenza B (RT-PCR) Not Detected M. pneumoniae (PCR) Not Detected Parainfluenza 1 (PCR) Not Detected Parainfluenza 2 (PCR) Not Detected Parainfluenza 3 (PCR) Not Detected Parainfluenza 4 (PCR) Not Detected RSV (PCR) Not Detected Entero/Rhino (PCR) Not Detected SARS-CoV-2 RNA (RT-PCR) Not Detected 04/07/22 16:03 WBC RBC Hgb Hct MCV MCH MCHC RDW Plt Count MPV Immature Gran % (Auto) Neut % (Auto) Lymph % (Auto) Upton % (Auto) Eos % (Auto) Baso % (Auto) Lymph # (Auto) Upton # (Auto) Eos # (Auto) Baso # (Auto) Abs Immat Gran (auto) Absolute Neuts (auto) Absolute Nucleated RBC Nucleated RBC % (auto) O2 Saturation ABG pH at Pt Temp ABG pCO2 at Pt Temp ABG pO2 at Pt Temp ABG HCO3 ABG Base Excess (Actual) Sodium Potassium Chloride Carbon Dioxide Anion Gap BUN Creatinine Estim Creat Clear Calc Estimated GFR POC Glucose 141 H Fasting Glucose Calcium Phosphorus Magnesium Total Bilirubin AST ALT Alkaline Phosphatase Ammonia B-Natriuretic Peptide Total Protein Albumin TSH Free T4 Random Cortisol Respiratory Panel Mosley Adenovirus (Rapid PCR) B.pert (TEM-PCR) B.parapertussis DNA PCR C. pneumoniae DNA (PCR) Coronavirus OC43 (PCR) Coronavirus HKU1 (PCR) Coronavirus 229E (PCR) Coronavirus NL63 (PCR) Hep B Core IgM Ab Human Metapneumovir PCR Influenza A (RT-PCR) Influenza B (RT-PCR) M. pneumoniae (PCR) Parainfluenza 1 (PCR) Parainfluenza 2 (PCR) Parainfluenza 3 (PCR) Parainfluenza 4 (PCR) RSV (PCR) Entero/Rhino (PCR) SARS-CoV-2 RNA (RT-PCR) Imaging Radiology Impressions: ITS Impressions Head CT 03/31/22 10:48 IMPRESSION: No acute intracranial pathology. Mild generalized atrophy and nonspecific periventricular white matter disease. This critical result was discussed with . workstation were at 1054 hours on 03/31/2022. It was ascertained that the content and urgency of the report was understood at the time of direct communication. Head/Neck CTA 03/31/22 10:56 IMPRESSION: - No acute intracranial findings. 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 Chronic encephalomalacia and gliosis within the right temporal lobe. If focal neurologic deficit persists and if not contraindicated, a MRI of the brain would be helpful in further assessment. 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 An underlying right vertebral artery dissection cannot be excluded. - Extensive atherosclerotic disease involving the carotid bifurcations bilaterally resulting in an 80-90% stenosis of the proximal right internal carotid artery and a 70% stenosis of the proximal left internal carotid artery. Retropharyngeal course of both proximal internal carotid arteries bilaterally. - There is right periauricular soft tissue stranding and thickening of the right cartilaginous external auditory canal that they can be correlated for clinical signs of right-sided otitis externa. Soft tissue within the external auditory canals bilaterally, likely cerumen that can also be correlated with direct visual inspection. Findings discussed with Dr.Steven Perez at 11:04 AM on 03/31/2022. Chest X-Ray 03/31/22 15:57 IMPRESSION: * Bilateral patchy airspace opacities are nonspecific. Pulmonary edema or pneumonitis could have this appearance. * Small right pleural effusion with accompanying atelectasis. Chest X-Ray 04/01/22 00:37 IMPRESSION: Cardiomegaly with pulmonary vascular congestion and small right effusion. Appearances are slightly improved when compared to yesterday. Abdomen/Pelvis CT 04/03/22 05:35 IMPRESSION: 1. Left percutaneous nephrostomy tube is in place. Bilateral hydroureter with right-sided hydronephrosis. The dilatation extends to the level of the bladder. Etiology is uncertain. This could be associated with outlet obstruction, though infection or mass are not excluded. 2. Moderate right and small left pleural effusions. Patchy opacities at the lung bases could be infectious or inflammatory. 3. Abdominal aortic aneurysm measuring 4.1 cm transverse. Recommend follow-up every 6 months and nonemergent vascular consultation. 4. Cholelithiasis. Fleischner guidelines were followed. Chest X-Ray 04/05/22 10:20 IMPRESSION: Interval decrease in pulmonary vascular congestion with persistent small right pleural effusion. Chest X-Ray 04/06/22 01:25 IMPRESSION: Small right pleural effusion with adjacent basilar atelectasis versus consolidation, similar to possibly slightly improved from prior. Head CT 04/06/22 09:47 IMPRESSION: No acute intracranial process seen. This critical result was discussed with at 9:49 AM on 04/06/2022. It was ascertained that the content and urgency of the report was understood at the time of direct communication. Chest X-Ray 04/06/22 09:50 IMPRESSION: Moderate opacification right lung base likely combination of effusion/atelectasis or infiltrate. The left lung is clear. Cardiomegaly. Venous Duplex 04/06/22 12:55 IMPRESSION: No DVT demonstrated in the bilateral lower extremities. Pulmonary Perfusion Imaging 04/06/22 14:35 IMPRESSION: Very low probability of pulmonary embolism. Abnormalities described above are likely due to a right pleural effusion. Brain MRI 04/06/22 19:35 IMPRESSION: 1. No acute infarct or other acute intracranial abnormality. 2. Ventriculomegaly with slightly disproportionate ventricular enlargement relative to the degree of cerebral volume loss with sulcal crowding at the vertex. Recommend clinical correlation for normal pressure hydrocephalus. 3. Moderate chronic microangiopathy. 4. Encephalomalacia and gliosis in the lateral right temporal lobe, possibly posttraumatic. 5. Abnormal flow related signal of the distal cervical and intradural right vertebral artery related to known cervical occlusion better assessed on preceding CTA. Mental Status Exam Mental Status Exam Narrative: seated in hospital bed, wearing yojana. calm, looking about the room. does not respond to MD's attempts to communicate with him, behaving as if MD is not present other than occasionally making eye contact with MD as pt scans room. no PMA/PMR. not cooperative. no speech. unable to assess thoughts. affect flat. mood unknown. no SI/HI/AVH expressed or indicated by any action. Medications Medications Current Medications Albuterol/Ipratropium (Albuterol/Iprat 2.5/0.5mg 3 Ml Ampul.Neb) 3 ml INHALE Q4H PRN PRN Reason: sob Amlodipine Besylate (Amlodipine Besylate 10 Mg Tablet) 10 mg PO DAILY [facility]; Protocol Last Admin: 04/06/22 09:04 Dose: Not Given Aspirin (Aspirin 81 Mg Tab.Chew) 81 mg PO DAILY [facility] Last Admin: 04/06/22 09:04 Dose: Not Given Atorvastatin Calcium (Atorvastatin Calcium 40 Mg Tablet) 40 mg PO DAILY [facility] Last Admin: 04/06/22 09:04 Dose: Not Given Dextrose (Dextrose 50 % 25 Gm/50 Ml Syringe) 25 gm IVPUSH Q15M PRN; Protocol PRN Reason: per Hypoglycemia Standing Ord. Ferrous Sulfate (Ferrous Sulfate 324 Mg Tablet.Dr) 324 mg PO DAILY [facility] Last Admin: 04/06/22 09:04 Dose: Not Given Furosemide (Furosemide 40 Mg/4 Ml Vial) 20 mg IVPUSH Q12H [facility]; Protocol Glucose (Glucose Gel 15 Gm Gel..Gram.) 15 gm PO Q15M PRN; Protocol PRN Reason: per Hypoglycemia Standing Ord. Magnesium Sulfate 5 meq/Calcium Gluconate 4.65 meq/Sodium Acetate 35 meq/Multivitamins 10.5 ml/ Trace Metals 1 ml/ Amino Acids/Electrolytes/Dextrose 960 mls @ 40 mls/hr IVCONT DAILY@1800 [facility] Stop: 04/07/22 17:59 Last Admin: 04/06/22 18:42 Dose: 40 mls/hr Thiamine HCl 400 mg/ Sodium (Chloride) 104 mls @ 208 mls/hr IV Q8H [facility] Last Admin: 04/07/22 16:29 Dose: 208 mls/hr Magnesium Sulfate 5 meq/Calcium Gluconate 4.65 meq/Sodium Acetate 35 me q/Multivitamins 10 ml/ Trace Metals 1 ml/ Amino Acids/Electrolytes/Dextrose 1,039.75 mls @ 60 mls/hr IVCONT DAILY@1800 [facility] Stop: 04/08/22 11:20 Magnesium Sulfate 5 meq/Calcium Gluconate 4.65 meq/Sodium Acetate 35 meq/ Amino Acids/Electrolytes/Dextrose 1,028.75 mls @ 60 mls/hr IVCONT DAILY@1800 [facility] Stop: 04/08/22 17:59 Insulin Human Lispro (Insulin Lispro 100 Unit/Ml 3 Ml Vial) 0 unit SUBCUT QIDACHS [facility]; Protocol Last Admin: 04/07/22 16:30 Dose: Not Given Melatonin (Melatonin 3 Mg Tablet) 6 mg PO BEDTIME PRN PRN Reason: insomnia Nadolol (Nadolol 20 Mg Tablet) 20 mg PO DAILY [facility]; Protocol Last Admin: 04/06/22 09:05 Dose: Not Given Olanzapine (Olanzapine 2.5 Mg Tablet) 2.5 mg PO BEDTIME [facility] Last Admin: 04/06/22 19:58 Dose: Not Given Pantoprazole Sodium (Pantoprazole Sodium 40 Mg/10 Ml Vial) 40 mg IVPUSH DAILY@0630 [facility] Last Admin: 04/07/22 10:33 Dose: 40 mg Rifaximin (Rifaximin 550 Mg Tablet) 550 mg PO BID [facility] Last Admin: 04/06/22 09:05 Dose: Not Given Sodium Chloride (0.9 % Sodium Chloride Flush 3 Ml Syringe) 3 ml IVFLUSH QSHIFT [facility] Last Admin: 04/07/22 07:43 Dose: Not Given Allergies Allergies Allergy/AdvReac Type Severity Reaction Status Date / Time No Known Allergies Allergy Verified 03/31/22 10:34 Assessment & Plan Assessment & Plan (1) Schizophrenia, chronic condition: Status: Acute Code(s): F20.9 - Schizophrenia, unspecified (2) Encephalopathy acute: Status: Acute Code(s): G93.40 - Encephalopathy, unspecified Plan this pt's deteriorating mental status is likely multifactorial, comprising decompensated schizophrenia, dementia, delirium (due to toxic/metabolic encephalopathy and current serious medical compromise). he is unable to take medications by mouth, and IM psychiatric medication is generally only given PRN. haldol is the only antipsychotic available IV and therefore the only antipsychotic which is able to be scheduled for this patient. if the HCP declines to allow haldol, i would continue with zyprexa 2.5 mg IM PRN agitation, up to 4 times daily. for IV haldol, i would give 1 to 2.5 mg twice daily, to start, with another 1 to 2.5 mg BID PRN agitation. if pt suffers EPS or akathisia from the medication, IV anti-histamine, such as benadryl 10 - 25 mg may be given concurrent with the haldol. IM cogentin may be used for acute dystonia. low-dose benzodiazepine (0.25 - 0.5 mg ativan or equivalent) may also be given with haldol for akathisia. thank you and be in touch with any further questions regarding this consult. I spent ___50___ minutes with the patient and/or on the patient floor today, greater than?50% of which was spent counseling/coordinating care.
--- NOTE | 2022-04-07 17:21 | MHC.SL.SWA ---
Addendum entered and electronically signed by Florecita Ba MA, CCC-CADDY MASTER 04/07/22 17:29: D.S. Original Note: Risk of Aspiration Due to: Medically Fragile Poor PO Intake Reduced Cognition Weak Cough Dysphasia Diet Status: No change Liquid Consistency and Strategies for Safe Swallow: Liquid Intake Recommendation: NPO Solid Food Consistency: Dietary Recommendations: NPO Oral Medication Intake: NPO Please contact the pharmacy regarding appropriate crushable or liquid drug formulations that are available whenever modified delivery is recommended. Compensatory Strategies and Precautions to be Taken for Safe Swallow: Recommendation for Speech: Further Testing Needed Outpatient Speech Therapy Inpatient Speech Therapy Comment: Recommend pt continue NPO at this time. Updates sent to RN and MD via [employer] CADDY MASTER will follow for re-evaluation. Full Time Staff Interpreter Clinican/Clinical Fellow: Yes: Ria Mancera M.A., CF-CADDY MASTER Supervisory Statement: I have reviewed and agree with the student/clinical fellow's documentation: Speech Language Pathologist:
[2022-04-07 19:07] VITALS: BP 99/60; PULSE 94; RESP 18; TEMP 36.7; O2SAT 94
[2022-04-07 19:44] LABS: Glucose, Whole Blood 135 mg/dL (60-115)
[2022-04-07 23:12] VITALS: BP 123/66; PULSE 78; RESP 18; TEMP 37.4; O2SAT 96
[2022-04-08] MEDS: Thiamine HCL 400 MG in 0.9 % Sodium Chloride 100 ML 208 MG IV ×3 (00:41→17:10)
[2022-04-08] MEDS: 0.9 % Sodium Chloride Flush 3 ML SYRINGE IVFLUSH ×2 (00:41→15:33)
[2022-04-08 03:32] VITALS: BP 118/63; PULSE 76; RESP 18; TEMP 36.7; O2SAT 94
[2022-04-08] MEDS: Pantoprazole Sodium 40 MG/10 ML VIAL IVPUSH (05:07)
[2022-04-08 06:19] LABS: Hematocrit 22.8 % (42.0-52.0); Hemoglobin 7.6 g/dl (14.0-18.0)
[2022-04-08 06:38] LABS: Anion Gap 13 (12-20); Blood Urea Nitrogen 71 mg/dL (9-16); Calcium 8.1 mg/dL (8.4-10.2); Carbon Dioxide 17 mmol/L (22-29); Chloride 111 mmol/L (96-108); Estimated Glomerular Filt Rate 18; Glucose Random 178 mg/dL (60-115); Potassium 3.4 mmol/L (3.3-5.1); Sodium 138 mmol/L (135-145)
[2022-04-08 07:48] LABS: Glucose, Whole Blood 166 mg/dL (60-115)
[2022-04-08 08:00] VITALS: BP 119/68; PULSE 73; RESP 18; TEMP 36.4; O2SAT 95
[2022-04-08] MEDS: Albumin Human 25 % 100 ML IV ×3 (09:30→22:11)
[2022-04-08] MEDS: Phytonadione (Vit K1) 10 MG in 0.9 % Sodium Chloride 50 ML 51 MG IV (09:31)
[2022-04-08 11:00] LABS: Glucose, Whole Blood 120 mg/dL (60-115)
--- NOTE | 2022-04-08 11:00 | MHC.CLN ---
F/U RECEIVED PPN D10AA4.25 AT 60ML/HR PROVIDED 734KCALS, 61G PROTEIN REVIEWED LABS; NOTED INCREASING BUN/CREAT DISCUSSED WITH PHARMACY-OBTAINING TRIG LEVEL PPN TO CONTINUE; RECOMMEND CONTINUING FORMULA D10AA4.25 AT 60ML/HR PROVIDES 734KCALS, 61G PROTEIN REPLETE LYTES NEEDED; MONITOR BUN/CREAT CLOSELY
[2022-04-08 11:05] LABS: Albumin Level 2.7 g/dL (3.5-5.0); Magnesium 1.9 mg/dL (1.6-2.6); Phosphorus 4.8 mg/dL (2.7-4.5)
[2022-04-08 11:38] VITALS: BP 117/62; PULSE 72; RESP 18; TEMP 36.2; O2SAT 96
[2022-04-08 12:17] LABS: Triglycerides 112 mg/dL
--- NOTE | 2022-04-08 12:24 | MHC.SL.SWA ---
Speech Pathologist Impression: Risk of Aspiration Due to: Medically Fragile Poor PO Intake Reduced Cognition Weak Cough Dysphasia Diet Status: Recommend UPGRADE to a diet of PUREE (NDD1) with NECTAR THICK liquids by tsp only, with pills CRUSHED in PUREE. Patient will need 1-1 feeding with close monitor for swallow before presenting any additional food/liquid, strict monitor for aspiration signs (discontinue if patient is coughing on food/liquid, or if patient sounds wet/gurgly during meal). Do not attempt if patient is lethargic or non-compliant. Liquid Consistency and Strategies for Safe Swallow: Liquid Intake Recommendation: [place] Thick Liquid Intake Strategies: Small Sips Liquids by Teaspoon Only Solid Food Consistency: Dietary Recommendations: Pureed (NDD1) Additional Modifications to Solid Foods: Patient will need 1-1 feeding with close monitor for swallow before presenting any additional food/liquid, strict monitor for aspiration signs (discontinue if patient is coughing on food/liquid, or if patient sounds wet/gurgly during meal). Do not attempt if patient is lethargic or non-compliant. Oral Medication Intake: Crushed with Puree Please contact the pharmacy regarding appropriate crushable or liquid drug formulations that are available whenever modified delivery is recommended. Compensatory Strategies and Precautions to be Taken for Safe Swallow: Sitting Upright (90 deg) Liquids from Spoon Small Bites and Sips Alternate Liquids/Solids Rate of Ingestion Change Oral Check Supervision While Eating and Drinking for Safe Swallow: Total Assistance (1:1) Foods to Avoid: Sticky, congealed purees, or very thin consistencies (e.g. pureed soups). Add sauces/gravies and blend well. Swallowing Recommended Treatments: Compens. Strategy Educat. Recommendation for Speech: Further Testing Needed Outpatient Speech Therapy Inpatient Speech Therapy Comment: Pt seen this a.m. both individually and with patient's nephew present. Patient was awake and alert, communicating minimally verbally, with voice at very low volume, mostly in Chinese, hard to understand at times. Pt was agreeable to try liquids and solids today. Pt was seated up right in bed, with head of bed at 90 degrees. Pt was initially given 1/4 tsp sips of water, with patient noted to episodically hold water in mouth before propelling it to swallow, produced a timely swallow with reduced laryngeal elevation. After several tsp presentations, patient noted to cough, however may not have been directly in response to swallow. Pt given tsp amounts of nectar thick liquid. Pt again episodically held bolus in mouth, at times for more than 5 seconds, then initiated lingual movement with swallow initiated after mild delay. Pt given 2/3 of a cup of nectar thick liquids to check for toleration, with periodic episodes of holding bolus, but no clinical signs of aspiration throughout. However patient required close monitor to assure swallow. Pt given tsps of Puree, with mild delay initiating lingual movement, disorganized, prolonged oral pattern including masticating puree, mild delay initiating swallow. Patient again required close monitor to assure swallow before presenting more. Pt had mild oral residual after swallow cleared by tsp of nectar thick liquids. Swallowing behavior was fully demonstrated with nephew present, with nephew presenting food/liquid to his uncle, closely monitoring for swallow before presenting more. Nephew asked if water could be given in small amounts (1/4 tsp) which was agreed to as long as nephew was presenting it in this manner (nephew fully instructed, told to stop if Pt coughs, sounds wet or gurgly). Nephew again requested that if COUNTY LIBRARY DIRECTOR comes again tomorrow for it to be while he is present, advised that he arrives arount 11:30. Nephew plans, at a minimum, to be present for lunch meal. Recommend UPGRADE to a diet of PUREE (NDD1) with NECTAR THICK liquids by tsp only, with pills CRUSHED in PUREE. Patient will need 1-1 feeding with close monitor for swallow before presenting any additional food/liquid, strict monitor for aspiration signs (discontinue if patient is coughing on food/liquid, or if patient sounds wet/gurgly during meal). Do not attempt if patient is lethargic or non-compliant. , RD advised of recommendation by sully taylor RN in person. Frequency/Duration: Date Range for Service Req: Timeline to reassess: Product Safety Professional Clinican/Clinical Fellow: No Supervisory Statement: I have reviewed and agree with the student/clinical fellow's documentation: N/A Speech Language Pathologist: Samantha Shirley M.A., [facility] LIBRARY DIRECTOR
--- NOTE | 2022-04-08 14:11 | CONS_ITS ---
DATE OF SERVICE: 04/08/2022 REASON FOR CONSULTATION: I was called to see this patient to assist in management of renal instructions. HISTORY OF PRESENT ILLNESS: Claudio is well known to our service. He is being seen by my associate Dr. Brower. He has been seen by us at [facility]. Claudio has a history of chronic kidney disease, which is presumably due to diabetic nephropathy. He did not undergo a kidney biopsy. He has stage IIIB chronic kidney disease. History of cirrhosis of the liver, longstanding diabetes mellitus. History of bladder carcinoma and was supposed to receive immunotherapy at [facility]. Indeed, he has undergone a percutaneous nephrostomy tube at [facility], and he comes in because of UTI and possible sepsis. At the time of admission, serum creatinine was 2.6 mg/dL. The creatine kinase has bumped up to 3.29. A 3-way catheter has been inserted and is currently undergoing continuous bladder irrigation. CT abdomen done on the without IV contrast showed left percutaneous nephrostomy in place. Bilateral hydroureter with right hydronephrosis. Moderate right and small left pleural effusion. PAST MEDICAL HISTORY: Ongoing medical problems include history of abdominal aortic aneurysm, bladder cancer, CVA, chronic kidney disease state 3B, COPD, cirrhosis of the liver, hypertension, parkinsonism, esophageal varices. SOCIAL HISTORY: No history of any smoking, alcohol abuse at present. MEDICATIONS: All the current medications were reviewed. ALLERGIES: HE IS ALLERGIC TO BACTRIM. REVIEW OF SYSTEMS: Patient is a poor historian. All the information was obtained from the chart. There has been no shortness of breath. No chest pain, nausea, vomiting. He did have some gross hematuria with Waldrop insertion. All other systems were reviewed as per chart. PHYSICAL EXAMINATION: GENERAL: Claudio is 76-year-old man lying flat. He is comfortable, not in any distress. NECK: Supple. Mucosa dry. LUNGS: Scattered rhonchi with decreased air entry in bases. HEART: S1, S2 heard. No gallop. ABDOMEN: Soft, nontender. Bowel sounds heard. Left percutaneous nephrostomy in place. NEURO: Alert and awake. No asterixis. No focal motor deficit is noted. No dependent edema. No new rash. VITAL SIGNS: Blood pressure today was 117/62, pulse 72. LABORATORY DATA: Hemoglobin 7.6, WBC 10.8, platelets 57,000. Sodium 138, potassium 3.4, CO2 17, BUN is 100, creatinine 3.29, phosphorus 4.8, albumin 2.7, calcium 8.1. Urine culture from 03/[address] St[address] scan was reviewed. PROBLEMS: 1. Acute kidney injury superimposed on chronic kidney disease. The chronic kidney disease, most likely due to diabetic nephropathy, although he has not undergone a biopsy. The superimposed acute kidney injury is most likely due to obstructive uropathy based on the recent imaging studies. There could be a component of volume depletion. 1. Severe anemia, which is multifactorial. 2. Hyperchloremic metabolic acidosis in the setting of renal failure. 3. Bladder carcinoma with obstructive uropathy, status post left PCN. 4. Cirrhosis of the liver. 5. History of hypertension. He has had multiple episodes of hypotension. RECOMMENDATIONS: Check urine for sodium and creatinine. Agree with Waldrop catheterization and follow up with Urology. Watch potassium and replace as needed. Since the blood pressure is low, I will hold the amlodipine for now. Check iron, TIBC, ferritin to see if he requires an iron replacement. If the iron studies are adequate, he may benefit from erythropoietin replacement therapy. Continue to avoid nephrotoxic agents including NSAIDs. If his serum bicarbonate was low at 17, I would add sodium bicarbonate 650 mg p.o. b.i.d. At this point, there is no absolute indication for dialysis yet. We will follow him closely along with the team. MD GISELA Bragg/MODL / [id number] MELRYN
--- NOTE | 2022-04-08 14:27 | MHC.CM.PN ---
Met with patients nephew to discuss discharge plan. The patient will not return to [facility] per patients nephewClif. His 1st choice is [facility]. He agreed to expand the bed search. Clinical infomation has been sent to [facility] and additional area referrals. [facility] via BLS.
--- NOTE | 2022-04-08 14:32 | P.PNIM_ITS ---
Subjective Subjective Date of Service: 04/08/22 Interval History: more awake ,says only few words Review of Systems ?no fever? overnight, ? urine clearing in the CBI bag. Physical Exam Vital Signs: Vital Signs: Last Vital Signs Temp 97.2 F 04/08/22 11:38 Pulse 72 04/08/22 11:38 Resp 18 04/08/22 11:38 BP 117/62 04/08/22 11:38 Pulse Ox 96 04/08/22 11:38 O2 Del Method 04/08/22 11:38 O2 Flow Rate 2 04/08/22 11:38 Oxygen Flow Rate 4 03/31/22 10:53 BMI result Body Mass Index 29.5 Appearance: mostly awake . cvs: rrr, [id number] . res: diminshed at bases, few scattered rales at bases. abd: no rebound or guarding ,nt, bs present. ext pulses present , no cyanosis , no edema . neuro: unable to obtain Objective Data Active Medications Albuterol/Ipratropium (Albuterol/Iprat 2.5/0.5mg 3 Ml Ampul.Neb) 3 ml INHALE Q4H PRN PRN Reason: sob Amlodipine Besylate (Amlodipine Besylate 10 Mg Tablet) 10 mg PO DAILY [facility]; Protocol Last Admin: 04/06/22 09:04 Dose: Not Given Documented By: BIANCA Non-Admin Reason: See Note Aspirin (Aspirin 81 Mg Tab.Chew) 81 mg PO DAILY [facility] Last Admin: 04/06/22 09:04 Dose: Not Given Documented By: BIANCA Non-Admin Reason: See Note Atorvastatin Calcium (Atorvastatin Calcium 40 Mg Tablet) 40 mg PO DAILY [facility] Last Admin: 04/06/22 09:04 Dose: Not Given Documented By: BIANCA Non-Admin Reason: See Note Dextrose (Dextrose 50 % 25 Gm/50 Ml Syringe) 25 gm IVPUSH Q15M PRN; Protocol PRN Reason: per Hypoglycemia Standing Ord. Ferrous Sulfate (Ferrous Sulfate 324 Mg Tablet.) 324 mg PO DAILY [facility] Last Admin: 04/06/22 09:04 Dose: Not Given Documented By: BIANCA Non-Admin Reason: See Note Glucose (Glucose Gel 15 Gm Gel..Gram.) 15 gm PO Q15M PRN; Protocol PRN Reason: per Hypoglycemia Standing Ord. Thiamine HCl 400 mg/ Sodium (Chloride) 104 mls @ 208 mls/hr IV Q8H [facility] Last Infusion: 04/08/22 10:10 Dose: 0 mls/hr Documented By: JOLIE-ROHANFA Magnesium Sulfate 5 meq/Calcium Gluconate 4.65 meq/Sodium Acetate 35 meq/ Amino Acids/Electrolytes/Dextrose 1,028.75 mls @ 60 mls/hr IVCONT DAILY@1800 [facility] Stop: 04/08/22 17:59 Last Admin: 04/08/22 11:56 Dose: 60 mls/hr Documented By: JOLIE-ANDRESSA Albumin Human (Kedbumin 25 %) 100 mls @ 100 mls/hr IV Q6H [facility] Stop: 04/09/22 03:44 Last Infusion: 04/08/22 10:43 Dose: 0 mls/hr Documented By: JOLIE-SOFKATELYN Magnesium Sulfate 10 meq/Calcium Gluconate 9.3 meq/Sodium Acetate 70 meq/Multivitamins 14 ml/ Trace Metals 1.4 ml/ Amino Acids/Electrolytes/Dextrose 1,440 mls @ 60 mls/hr IVCONT DAILY@1800 [facility] Insulin Human Lispro (Insulin Lispro 100 Unit/Ml 3 Ml Vial) 0 unit SUBCUT QIDACHS [facility]; Protocol Last Admin: 04/08/22 11:05 Dose: Not Given Documented By: BIANCA Non-Admin Reason: poc oor Melatonin (Melatonin 3 Mg Tablet) 6 mg PO BEDTIME PRN PRN Reason: insomnia Nadolol (Nadolol 20 Mg Tablet) 20 mg PO DAILY [facility]; Protocol Last Admin: 04/06/22 09:05 Dose: Not Given Documented By: BIANCA Non-Admin Reason: See Note Olanzapine (Olanzapine 2.5 Mg Tablet) 2.5 mg PO BEDTIME [facility] Last Admin: 04/07/22 20:01 Dose: Not Given Documented By: DANE Non-Admin Reason: NPO Pantoprazole Sodium (Pantoprazole Sodium 40 Mg/10 Ml Vial) 40 mg IVPUSH DAILY@0630 [facility] Last Admin: 04/08/22 05:07 Dose: 40 mg Documented By: HERNANDEZ Rifaximin (Rifaximin 550 Mg Tablet) 550 mg PO BID [facility] Last Admin: 04/06/22 09:05 Dose: Not Given Documented By: BIANCA Non-Admin Reason: See Note Sodium Chloride (0.9 % Sodium Chloride Flush 3 Ml Syringe) 3 ml IVFLUSH QSHIFT [facility] Last Admin: 04/08/22 07:18 Dose: Not Given Documented By: BIANCA Non-Admin Reason: See Note Labs CBC & Chem 7: 04/08/22 05:48 04/08/22 05:48 Labs: Laboratory Results - last 24 hr 04/07/22 04/07/22 04/07/22 06:01 16:03 19:39 Anion Gap Estim Creat Clear Calc Estimated GFR POC Glucose 141 H 135 H Random Glucose Calcium Phosphorus Magnesium Albumin Triglycerides Free T4 0.69 L 04/08/22 04/08/22 04/08/22 05:48 07:36 10:56 Anion Gap 13 Estim Creat Clear Calc 19.0 Estimated GFR 18 POC Glucose 166 H 120 H Random Glucose 178 H Calcium 8.1 L Phosphorus 4.8 H Magnesium 1.9 Albumin 2.7 L Triglycerides Free T4 04/08/22 11:48 Anion Gap Estim Creat Clear Calc Estimated GFR POC Glucose Random Glucose Calcium Phosphorus Magnesium Albumin Triglycerides 112 Free T4 Assessment and Plan (1) Hypoxia: Status: Acute (2) Encephalopathy acute: Status: Acute (3) Failure to thrive in adult: Status: Acute Plan 76-year-old male presents unresponsive, hypotensive, hypothermic in the backdrop of active urinary sediment.? More cooperative with Zyprexa however somewhat agitated overnight.? Additional dose of Zyprexa given ?acute hypoxemic respiratory failure,? possible secondary hypoalbuminemia ,possible liver disease /cirrosis ,? CHF ( unclear etiology) hypoxia improving echo : ef 55-60% ?chest x-ray-? Atelectasis /effusion, ABG reviewed- pH seems fine., ammonia? Fine. daily weight,i/o, incentive spirometry, chest physiotherapy,? Continue suctioning,? Oxygen support,?oxygen support-keep sats 92 % hold lasix less likely chf- may be fluid overload sec to prbc /fluids ,atlactasis might also contributin cardiology followin toxic metabolic encephalopathy :? Multifactorial( acute hypoxemic respiratory failure/ CHF/electrolytic abnormalities/ poor oral intake/ dementia) slightly more awake ?supportive care. ?CT head negative,mri reviewed by neuro,EEG due to fairly severe diffuse background slowing consistent with a diffuse encephalopathic process. neuro saw the patient-encephalopathy Possibly? related to multifactorial basis with? hypoxia, metabolic abnormalities and baseline dementia Hematuria -CBI with normal saline ...? Urine clearin -percutaneous nephrostomy tube draining clear urine since patient more cooperative urology called for follow up-? Urology will follow-up with CBI -may need to change to villaeral ? UTI completed antibiotics -culture unreliable from nephrostomy tube.? ?urine culture noted- received 7 days of antibiotic, discussed with infectious disease- urine culture and chest x-ray: patient does not have any leukocytosis or fever, blood culture negative, off? ceftriaxone. Hypothermia -no further hypothermia since 04/04 tsh boderline elevated ,add t4 boderline low will check with endocrinology for recomendations -follow -follow rectal times ?Anemia/thrombocytopenia-multifactorial : poor oral inatke/hematuria also contributin,live dis -stable at this time between 7-8 range -follow daily CBCs Type 2 diabetes: flacutaing fs 120-160 -diet resumed.. .? limited intake ? Adjustedlispro coorectional scale. ?Dementia with agitated features -arousable this a.m. likely secondary to overnight Zyprexa -will hold p.o. dose this a.m. and follow -portable chest done - please see above in UTI section. ?possible failure to thrive/hypoalbuminemia:? patient is not eating well from at least 2 weeks. ? Family currently does not wants central line so started PPN ?family does not want tube feeding also seen by speech and swallow -added diet. hx of HHC s/p ablation ,as well as hx of bladder cancer on palltive immunotherpay: supportive care stan on ckd: possible related to above, hx of liver dis ?alcohol cr slightly up as per family his basline cr is between 2-3 continue ppn,hold lasix, encourage po hydration ,added albumin on rifraximine/nadolol added nephrologyeval ?above management discussed with patient family in detail length they understand and in agreement with the above , healthcare proxy Mr. Menezes- they understand the patient prognosis is poor, currently continue conservative management, if patient condition further deteriorate please inform the family . also called [facility] for patient records. Full code Vena dynes boots-due to? Anemia/thrombocytopenia ongoing hospitalization for treatment:multiple issues ,acute hypoxemic respiratory failure multifactorial,FTT, toxic metabolic encephalopathy -as above. Quality Stroke Does the patient have a stroke diagnosis?: No VTE Prior VTE?: No VTE Risk Level:: Medical - moderate - high VTE Device Contraindication: N/A - Device Ordered VTE Drug Contraindication: Treatment Not Indicated
[2022-04-08 15:09] VITALS: BP 129/66; PULSE 76; RESP 15; TEMP 36.2; O2SAT 96
[2022-04-08 16:34] LABS: Glucose, Whole Blood 122 mg/dL (60-115)
[2022-04-08 19:10] VITALS: BP 117/73; PULSE 76; RESP 16; TEMP 36.2; O2SAT 96
[2022-04-08] MEDS: OLANZapine 2.5 MG TABLET PO (20:57)
[2022-04-08] MEDS: Potassium Chloride Packet 20 MEQ PACKET PO (20:57)
[2022-04-08] MEDS: Magnesium Oxide 400 MG TABLET PO (20:57)
[2022-04-08 21:09] LABS: Glucose, Whole Blood 192 mg/dL (60-115)
[2022-04-09] VITALS: BP 126/68; PULSE 71; RESP 18; TEMP 36.7; O2SAT 94
[2022-04-09] MEDS: Thiamine HCL 400 MG in 0.9 % Sodium Chloride 100 ML 208 MG IV ×3 (00:47→15:14)
[2022-04-09] MEDS: 0.9 % Sodium Chloride Flush 3 ML SYRINGE IVFLUSH ×2 (01:57→10:51)
[2022-04-09] MEDS: Albumin Human 25 % 100 ML IV ×3 (03:13→21:08)
[2022-04-09 03:31] VITALS: BP 144/76; PULSE 66; RESP 16; TEMP 36.1; O2SAT 96
[2022-04-09] MEDS: Pantoprazole Sodium 40 MG/10 ML VIAL IVPUSH (05:36)
[2022-04-09 06:46] LABS: Carbon Dioxide 19 mmol/L (22-29); Chloride 110 mmol/L (96-108); Glucose Random 182 mg/dL (60-115); Potassium 3.4 mmol/L (3.3-5.1); Sodium 138 mmol/L (135-145)
[2022-04-09 06:47] LABS: Anion Gap 12 (12-20); Blood Urea Nitrogen 78 mg/dL (9-16); Calcium 8.4 mg/dL (8.4-10.2)
[2022-04-09 06:51] LABS: Creatinine Clr Calc Pharmacy 15.2; Estimated Glomerular Filt Rate 14
[2022-04-09 08:00] VITALS: BP 126/69; PULSE 59; RESP 20; TEMP 33.5; O2SAT 100
[2022-04-09] MEDS: Insulin Lispro 100 UNIT/ML 3 ML VIAL SUBCUT ×3 (08:00→21:59)
[2022-04-09 08:31] LABS: Glucose, Whole Blood 182 mg/dL (60-115)
[2022-04-09 09:28] LABS: Albumin Level 3.8 g/dL (3.5-5.0); Anion Gap 15 (12-20); Blood Urea Nitrogen 83 mg/dL (9-16); Calcium 8.3 mg/dL (8.4-10.2); Carbon Dioxide 18 mmol/L (22-29); Chloride 112 mmol/L (96-108); Estimated Glomerular Filt Rate 14; Glucose Random 202 mg/dL (60-115); Magnesium 2.2 mg/dL (1.6-2.6); Phosphorus 3.8 mg/dL (2.7-4.5); Potassium 3.4 mmol/L (3.3-5.1); Sodium 142 mmol/L (135-145); Triglycerides 108 mg/dL
--- NOTE | 2022-04-09 10:49 | MHC.CLN ---
F/U RECEIVED PPN D10AA4.25 AT 60ML/HR PROVIDED 734KCALS, 61G PROTEIN REVIEWED LABS; NOTED INCREASING BUN/CREAT PACKAGER HEAD RECOMMENDED PUREED DIET WITH NT LIQ DISCUSSED WITH PHARMACY PPN TO CONTINUE; RECOMMEND DECREASING FORMULA D10AA4.25 AT 40ML/HR TO PROVIDE 490KCALS, 41G PROTEIN REPLETE LYTES NEEDED; MONITOR BUN/CREAT CLOSELY MONITOR PO INTAKE CLOSELY
[2022-04-09] MEDS: Ferrous Sulfate 324 MG TABLET.DR PO ×2 (10:50→12:32)
[2022-04-09 11:25] VITALS: BP 120/69; PULSE 52; RESP 16; TEMP 32.8; O2SAT 98
[2022-04-09 12:12] LABS: Glucose, Whole Blood 170 mg/dL (60-115)
[2022-04-09] MEDS: Lactated Ringers 1,000 ML 100 ML IVCONT ×2 (12:31→21:50)
[2022-04-09] MEDS: Magnesium Oxide 400 MG TABLET PO ×2 (12:32→21:52)
[2022-04-09] MEDS: Phytonadione (Vit K1) 10 MG in 0.9 % Sodium Chloride 50 ML 51 MG IV (12:48)
--- NOTE | 2022-04-09 13:56 | MHC.SL.SWA ---
Speech Pathologist Impression: Severe oropharyngeal dysphagia Risk of Aspiration Due to: Medically Fragile Poor PO Intake Reduced Cognition Weak Cough Dysphasia Diet Status: No Change Liquid Consistency and Strategies for Safe Swallow: Liquid Intake Recommendation: [place] Thick Liquid Intake Strategies: Small Sips Liquids by Teaspoon Only Solid Food Consistency: Dietary Recommendations: Pureed (NDD1) Additional Modifications to Solid Foods: Patient will need 1-1 feeding with close monitor for swallow before presenting any additional food/liquid, strict monitor for aspiration signs (discontinue if patient is coughing on food/liquid, or if patient sounds wet/gurgly during meal). Do not attempt if patient is lethargic or non-compliant. Oral Medication Intake: Crushed with Puree Please contact the pharmacy regarding appropriate crushable or liquid drug formulations that are available whenever modified delivery is recommended. Compensatory Strategies and Precautions to be Taken for Safe Swallow: Sitting Upright (90 deg) Liquids from Spoon Small Bites and Sips Alternate Liquids/Solids Rate of Ingestion Change Oral Check Supervision While Eating and Drinking for Safe Swallow: Total Assistance (1:1) Foods to Avoid: Sticky, congealed purees, or very thin consistencies (e.g. pureed soups). Add sauces/gravies and blend well. Swallowing Recommended Treatments: Compens. Strategy Educat. Recommendation for Speech: Outpatient Speech Therapy Inpatient Speech Therapy Teachers' Assistant Clinican/Clinical Fellow: No Supervisory Statement: I have reviewed and agree with the student/clinical fellow's documentation: N/A Speech Language Pathologist: Florecita Ba M.A., CCC-CALCULUS PROFESSOR
--- NOTE | 2022-04-09 14:37 | P.CNGI_ITS ---
History of Present Illness Data of Consult Service Date: 04/09/22 Requesting physician: Paolo Berry Primary Care Provider: Martha Mckeon MD [facility] Reason for consult: possible hepato-renal syndrome 76 YM admitted to [facility] [place] with unresponsiveness and did not respond to Narcan.? Patient was hypotensive and hypothermic; placed on Maru Hugger and given IV fluids.? Pt noted to be anemic with a hemoglobin of 5.6 for which 2 units were transfused.? Sepsis protocol initiated with blood cultures being drawn x2; ceftriaxone 1 g IV x1 after urine culture.? Saline bolus of 30 cc/kilogram given with improvement of hypotension.? Urine with active sediment. Likely culprit.? Lactate negative.? Pt noted to have an increase in Creatinine since hospitalization from 2.63 to > 4.17 today GI consulted to evaluate for ? Hepatorenal syndrome. 04/09/22 abd us showed: Liver appeared unremarkable and no free fluid seen 1. Left nephrostomy tube in place without hydronephrosis. Tiny renal cysts bilaterally demonstrate benign features not requiring follow-up. 2. Cholelithiasis without evidence for acute cholecystitis. Mild mural thickening is likely secondary to incomplete distention/chronic change. 04/03/[address] SCAN SHOWED: 1.? Left percutaneous nephrostomy tube is in place. Bilateral hydroureter with right-sided hydronephrosis. The dilatation extends to the level of the bladder. Etiology is uncertain. This could be associated with outlet obstruction, though infection or mass are not excluded. 2.? Moderate right and small left pleural effusions. Patchy opacities at the lung bases could be infectious or inflammatory. 3.? Abdominal aortic aneurysm measuring 4.1 cm transverse. Recommend follow-up every 6 months and nonemergent vascular consultation. 4.? Cholelithiasis. Review of Systems Review of Systems: Unable to obtain Yes Unobtainable due to mental condition and Unobtainable due to mental status Constitutional: Constitutional: Reports as per HPI and Reports no additional constitutional complaints Cardiovascular: Cardiovascular: Reports as per HPI and Reports no additional cardiovascular complaints Respiratory: Respiratory: Reports as per HPI and Reports no additional respiratory complaints Gastrointestinal: Gastrointestinal: Reports as per HPI and Reports no additional gastrointestinal complaints Genitourinary: Genitourinary: Reports as per HPI Musculoskeletal: Musculoskeletal: Reports no additional musculoskeletal complaints and Reports as per HPI Neurologic: Reports system reviewed and no additional complaints, except as d ocumented, Reports as per HPI and Reports confusion Psychiatric: Psychiatric: Reports confusion [facility] Past Medical History Medical History ANDREEA (acute kidney injury) Family History Family history: reviewed and not pertinent Social History Social History (System 05/06/22 @ 10:50 by Yoly Montes) Household Members: None Housing: Assisted Living Facility Patient Tobacco Use Status: Never used Tobacco Advance Directives: No Advance Directives Information Provided: No service: No Current occupational status: disabled Meds Allergies Allergy/AdvReac Type Severity Reaction Status Date / Time No Known Allergies Allergy Verified 05/06/22 10:50 Active Medications: Current Medications Albuterol/Ipratropium (Albuterol/Iprat 2.5/0.5mg 3 Ml Ampul.Neb) 3 ml INHALE Q4H PRN PRN Reason: sob Amlodipine Besylate (Amlodipine Besylate 10 Mg Tablet) 10 mg PO DAILY [facility]; Protocol Last Admin: 04/06/22 09:04 Dose: Not Given Aspirin (Aspirin 81 Mg Tab.Chew) 81 mg PO DAILY [facility] Last Admin: 04/06/22 09:04 Dose: Not Given Atorvastatin Calcium (Atorvastatin Calcium 40 Mg Tablet) 40 mg PO DAILY [facility] Last Admin: 04/06/22 09:04 Dose: Not Given Dextrose (Dextrose 50 % 25 Gm/50 Ml Syringe) 25 gm IVPUSH Q15M PRN; Protocol PRN Reason: per Hypoglycemia Standing Ord. Ferrous Sulfate (Ferrous Sulfate 324 Mg Abena.) 324 mg PO DAILY [facility] Last Admin: 04/09/22 12:32 Dose: 324 mg Glucose (Glucose Gel 15 Gm Gel..Gram.) 15 gm PO Q15M PRN; Protocol PRN Reason: per Hypoglycemia Standing Ord. Thiamine HCl 400 mg/ Sodium (Chloride) 104 mls @ 208 mls/hr IV Q8H [facility] Last Admin: 04/09/22 12:32 Dose: 208 mls/hr Magnesium Sulfate 10 meq/Calcium Gluconate 9.3 meq/Sodium Acetate 70 meq/Multivitamins 14 ml/ Trace Metals 1.4 ml/ Amino Acids/Electrolytes/Dextrose 1,440 mls @ 60 mls/hr IVCONT DAILY@1800 [facility] Stop: 04/09/22 17:59 Last Admin: 04/08/22 18:00 Dose: 60 mls/hr Albumin Human (Kedbumin 25 %) 100 mls @ 100 mls/hr IV Q6H [facility] Stop: 04/10/22 03:44 Last Admin: 04/09/22 13:33 Dose: Not Given Lactated Ringer's (Lr) 1,000 mls @ 100 mls/hr IVCONT .Q10H [facility] Last Admin: 04/09/22 12:31 Dose: 100 mls/hr Magnesium Sulfate 10 meq/Calcium Gluconate 9.3 meq/Sodium Acetate 60 meq/Multivi tamins 14 ml/ Trace Metals 1.4 ml/ Amino Acids/Electrolytes/Dextrose 960 mls @ 40 mls/hr IVCONT DAILY@1800 [facility] Stop: 04/10/22 17:59 Insulin Human Lispro (Insulin Lispro 100 Unit/Ml 3 Ml Vial) 0 unit SUBCUT QIDACHS [facility]; Protocol Last Admin: 04/09/22 12:54 Dose: Not Given Magnesium Oxide (Magnesium Oxide 400 Mg Tablet) 400 mg PO BID [facility] Last Admin: 04/09/22 12:32 Dose: 400 mg Melatonin (Melatonin 3 Mg Tablet) 6 mg PO BEDTIME PRN PRN Reason: insomnia Nadolol (Nadolol 20 Mg Tablet) 20 mg PO DAILY [facility]; Protocol Last Admin: 04/06/22 09:05 Dose: Not Given Octreotide Acetate (Octreotide Acetate 50 Mcg/Ml Vial) 100 mcg SUBCUT Q8H [facility] Last Admin: 04/09/22 10:49 Dose: 100 mcg Olanzapine (Olanzapine 2.5 Mg Tablet) 2.5 mg PO BEDTIME [facility] Last Admin: 04/08/22 20:57 Dose: 2.5 mg Pantoprazole Sodium (Pantoprazole Sodium 40 Mg/10 Ml Vial) 40 mg IVPUSH DAILY@0630 [facility] Last Admin: 04/09/22 05:36 Dose: 40 mg Rifaximin (Rifaximin 550 Mg Tablet) 550 mg PO BID [facility] Last Admin: 04/06/22 09:05 Dose: Not Given Sodium Chloride (0.9 % Sodium Chloride Flush 3 Ml Syringe) 3 ml IVFLUSH QSHIFT [facility] Last Admin: 04/09/22 10:51 Dose: 3 ml Home Medications Medication Instructions Recorded Confirmed Last Taken Type amlodipine 10 mg tablet 1 tab PO DAILY 03/31/22 03/31/22 Unknown History atorvastatin 40 mg tablet 1 tab PO DAILY 03/31/22 03/31/22 Unknown History clotrimazole 1 % topical cream 1 appl topical BID PRN Rash 03/31/22 03/31/22 Unknown History docusate sodium 100 mg tablet 100 mg PO DAILY 03/31/22 03/31/22 Unknown History ferrous sulfate 325 mg (65 mg 325 mg PO DAILY 03/31/22 03/31/22 Unknown History iron) tablet insulin lispro 100 unit/mL 0 sliding scale dose subcut QIDACHS 03/31/22 03/31/22 Unknown History subcutaneous solution multivitamin 1 tab PO DAILY 03/31/22 03/31/22 Unknown History nadolol 20 mg tablet 1 tab PO DAILY 03/31/22 03/31/22 Unknown History olanzapine 5 mg tablet 1 tab PO BEDTIME 03/31/22 03/31/22 Unknown History ondansetron HCl 4 mg tablet 1 tab PO Q8H PRN Nausea 03/31/22 03/31/22 Unknown History rifaximin 550 mg tablet (Xifaxan) 1 tab PO BID 03/31/22 03/31/22 Unknown History sennosides 8.6 mg tablet (senna) 8.6 mg PO BEDTIME 03/31/22 03/31/22 Unknown History thiamine HCl (vitamin B1) 50 mg 50 mg PO DAILY 03/31/22 03/31/22 Unknown History tablet triamcinolone acetonide 0.1 % 1 applic topical BID PRN Rash 03/31/22 03/31/22 Unknown History topical cream Physical Exam Vital Signs: Vital Signs: Last Vital Signs Temp 91.1 F L 04/09/22 11:25 Pulse 52 04/09/22 11:25 Resp 16 04/09/22 11:25 BP 120/69 04/09/22 11:25 Pulse Ox 98 04/09/22 11:25 O2 Del Method 04/09/22 11:25 O2 Flow Rate 1 04/09/22 11:25 Oxygen Flow Rate 4 03/31/22 10:53 BMI result Body Mass Index 29.5 Const: General: no acute distress and confusion Orientation/consciousness: patient oriented x3 and confusion Limitations: no limitations HEENT: Head: Yes normal to inspection Ears: hearing grossly normal bilaterally Eyes: Sclerae: sclerae normal Pupils: Equal, round and reactive pupils present Neck: Neck: Yes normal visual inspection Chest: Chest palpation & inspection: normal inspection of the chest Resp: Effort & Inspection: normal respiratory effort Auscultation: clear to auscultation bilaterally Cardio: Palpation: normal PMI Rate: regular rate Rhythm: regular rhythm Heart sounds: S1 normal heart sound present, S2 normal heart sound present and no murmurs GI: Palpation (GI): Soft to palpation, nontender and No hepatosplenomegaly present Auscultation: normal bowel sounds Rectal Exam - Male: Yes deferred Skin: General skin exam: no rashes or lesions noted Neuro: General: patient oriented x3, gait normal, moves all extremities and confusion Cranial nerves: Yes Equal, round and reactive pupils present Psych: Appearance: grossly normal Mental Status: mental status grossly normal Results Labs 04/24/22 06:30 04/27/22 05:46 Labs: BMP 04/09/22 04/09/22 05:48 08:19 Sodium 138 142 Potassium 3.4 3.4 Chloride 110 H 112 H Carbon Dioxide 19 L 18 L BUN 78 H 83 H D Creatinine 4.11 H* 4.17 H* Calcium 8.4 8.3 L Liver Function 04/09/22 Range/Units 08:19 Albumin 3.8 D (3.5-5.0) g/dL Microbiology Microbiology Results: Microbiology 03/31/22 15:07 Blood - Venous Blood Culture - Final No growth after 5 days. 03/31/22 15:07 Blood - Venous Blood Culture - Final No growth after 5 days. 03/31/22 00:00 Urine Other - Nephrostomy Urine Culture - Final Staphylococcus cohnii ssp urea 03/31/22 15:02 Blood - Venous Blood Culture - Final 03/31/22 15:02 Blood - Venous Blood Culture - Final Assessment and Plan (1) Failure to thrive in adult: Status: Acute (2) Elevated serum creatinine: Status: Resolved Plan 76 YM admitted to [facility] on 03[place] with unresponsiveness and did not respond to Narcan.? Patient was hypotensive and hypothermic; placed on Maru Hugger and given IV fluids.? Pt noted to be anemic with a hemoglobin of 5.6 for which 2 units were transfused.? Sepsis protocol initiated with blood cultures being drawn x2; ceftriaxone 1 g IV x1 after urine culture.? Saline bolus of 30 cc/kilogram given with improvement of hypotension.? Urine with active sediment. Likely culprit.? Lactate negative.? Pt diagnosed with toxic metabolic encephalopathy felt to be multifactorial( acute hypoxemic respiratory failure/ CHF/electrolytic abnormalities/ poor oral intake/ dementia) Pt noted to have an increase in Creatinine since hospitalization from 2.63 to > 4.17 today Pt had normal ammonia level on admission. INR was 1.1. Normal LFTs except isolated elevation of AP. GI consulted to evaluate for ? Hepatorenal syndrome. Abdominal US today showed a normal appearing liver without free fluid Pt is not likely to have HRS in absence of advanced liver disease and ascites. RECOMMENDATIONS 1. Follow up as per nephrology and urology Procedures Date of Service Date of Service: 04/09/22
--- NOTE | 2022-04-09 15:03 | MHC.CM.PN ---
Per MD rounds no discharge today. Patient will be seen by and GI. DP STR via BLS. Patient will not return to [place] per nephew/HCP Clif.
--- NOTE | 2022-04-09 15:56 | PM.PNNEP ---
Subjective Subjective Date of Service: 04/09/22 Interval history: Sleepy ,says only few words Physical Exam Vital Signs: Vital Signs: Last Vital Signs Temp 91.1 F L 04/09/22 11:25 Pulse 52 04/09/22 11:25 Resp 16 04/09/22 11:25 BP 120/69 04/09/22 11:25 Pulse Ox 98 04/09/22 11:25 O2 Del Method 04/09/22 11:25 O2 Flow Rate 1 04/09/22 11:25 Oxygen Flow Rate 4 03/31/22 10:53 BMI result Body Mass Index 29.5 Appearance: mostly awake ,tried to mumble his name. cvs: rrr, [id number] . res: diminshed at bases, no rales or wheezin abd: no rebound or guarding ,nt, bs present. ext pulses present , no cyanosis , no edema . neuro:colud able to move arms , wiggle toes.sit on command with lot of assitance. Objective Data Labs CBC & Chem 7: 04/08/22 05:48 04/10/22 06:01 Labs: Laboratory Results - last 24 hr 04/08/22 04/08/22 04/09/22 16:21 19:46 05:48 Sodium 138 Potassium 3.4 Chloride 110 H Carbon Dioxide 19 L Anion Gap 12 BUN 78 H Creatinine 4.11 H* Estim Creat Clear Calc 15.2 Estimated GFR 14 POC Glucose 122 H 192 H Random Glucose 182 H Calcium 8.4 Phosphorus Magnesium Albumin Triglycerides 04/09/22 04/09/22 04/09/22 08:04 08:19 11:29 Sodium 142 Potassium 3.4 Chloride 112 H Carbon Dioxide 18 L Anion Gap 15 BUN 83 H D Creatinine 4.17 H* Estim Creat Clear Calc 15.0 Estimated GFR 14 POC Glucose 182 H 170 H Random Glucose 202 H D Calcium 8.3 L Phosphorus 3.8 Magnesium 2.2 Albumin 3.8 D Triglycerides 108 Microbiology Microbiology Results: Microbiology 03/31/22 15:07 Blood - Venous Blood Culture - Final No growth after 5 days. 03/31/22 15:07 Blood - Venous Blood Culture - Final No growth after 5 days. 03/31/22 00:00 Urine Other - Nephrostomy Urine Culture - Final Staphylococcus cohnii ssp urea 03/31/22 15:02 Blood - Venous Blood Culture - Final 03/31/22 15:02 Blood - Venous Blood Culture - Final Procedures Date of Service Date of Service: 04/09/22 Assessment & Plan Assessment and plan (1) ANDREEA (acute kidney injury): Status: Acute Assessment and Plan: 1. Acute kidney injury superimposed on chronic kidney disease. ? The chronic kidney disease, most likely due to diabetic nephropathy, although he has not undergone a biopsy.? The superimposed acute kidney injury is most likely due to obstructive uropathy based on the recent imaging studies.? There could be a component of volume depletion. 2. Severe anemia, which is multifactorial. 3. Hyperchloremic metabolic acidosis in the setting of renal failure. 4. Bladder carcinoma with obstructive uropathy, status post left PCN. 5. Cirrhosis of the liver. 6. History of hypertension.? He has had multiple episodes of hypotension. ? RECOMMENDATIONS:? ? Flush [place] catheterization and follow up with Urology.? Watch potassium and replace as needed.? Since the blood pressure is low, I will hold the amlodipine for now. ? Check iron, TIBC, ferritin to see if he requires an iron replacement.? If the iron studies are adequate, he may benefit from erythropoietin replacement therapy. ? Continue to avoid nephrotoxic agents including NSAIDs.? If his serum bicarbonate was low at 17, PO sodium bicarbonate 650 mg p.o. b.i.d. At this point, there is no absolute indication for dialysis yet.? We will follow him closely along with the team. ? Time Spent With Patient Time: Total time spent is greater than 50% in coordination of care (as documented) at patient's floor/unit and/or counseling patient: Progress Note: Quality Stroke Does the patient have a stroke diagnosis?: No
[2022-04-09 16:00] VITALS: BP 118/62; PULSE 58; RESP 18; TEMP 36.5; O2SAT 97
[2022-04-09 16:56] LABS: Glucose, Whole Blood 231 mg/dL (60-115)
[2022-04-09] MEDS: Potassium Chloride/H20 10 MEQ/100 ML PIGGYBACK 100 MEQ IV ×2 (17:13→18:35)
--- NOTE | 2022-04-09 17:19 | P.PNIM_ITS ---
Subjective Subjective Date of Service: 04/09/22 Interval History: more awake ,eating slighty has hypothermia Review of Systems no fever? overnight, has villareal Decreased urine output through Villareal but has urine in the nephrostomy tube( tot al around 450 ml today). Physical Exam Vital Signs: Vital Signs: Last Vital Signs Temp 97.7 F 04/09/22 16:00 Pulse 58 04/09/22 16:00 Resp 18 04/09/22 16:00 BP 118/62 04/09/22 16:00 Pulse Ox 97 04/09/22 16:00 O2 Del Method 04/09/22 16:00 O2 Flow Rate 1 04/09/22 16:00 Oxygen Flow Rate 4 03/31/22 10:53 BMI result Body Mass Index 29.5 Appearance: mostly awake ,tried to mumble his name. cvs: [id number], [id number] . res: diminshed at bases, no rales or wheezin abd: no rebound or guarding ,nt, bs present. ext pulses present , no cyanosis , no edema . neuro:colud able to move arms , wiggle toes.sit on command with lot of assitance. Objective Data Active Medications Albuterol/Ipratropium (Albuterol/Iprat 2.5/0.5mg 3 Ml Ampul.Neb) 3 ml INHALE Q4H PRN PRN Reason: sob Amlodipine Besylate (Amlodipine Besylate 10 Mg Tablet) 10 mg PO DAILY [facility]; Protocol Last Admin: 04/06/22 09:04 Dose: Not Given Documented By: BIANCA Non-Admin Reason: See Note Aspirin (Aspirin 81 Mg Tab.Chew) 81 mg PO DAILY [facility] Last Admin: 04/06/22 09:04 Dose: Not Given Documented By: BIANCA Non-Admin Reason: See Note Atorvastatin Calcium (Atorvastatin Calcium 40 Mg Tablet) 40 mg PO DAILY [facility] Last Admin: 04/06/22 09:04 Dose: Not Given Documented By: BIANCA Non-Admin Reason: See Note Dextrose (Dextrose 50 % 25 Gm/50 Ml Syringe) 25 gm IVPUSH Q15M PRN; Protocol PRN Reason: per Hypoglycemia Standing Ord. Ferrous Sulfate (Ferrous Sulfate 324 Mg Tablet.) 324 mg PO DAILY [facility] Last Admin: 04/09/22 12:32 Dose: 324 mg Documented By: JOVANNI Glucose (Glucose Gel 15 Gm Gel..Gram.) 15 gm PO Q15M PRN; Protocol PRN Reason: per Hypoglycemia Standing Ord. Thiamine HCl 400 mg/ Sodium (Chloride) 104 mls @ 208 mls/hr IV Q8H [facility] Last Admin: 04/09/22 15:14 Dose: 208 mls/hr Documented By: JOVANNI Magnesium Sulfate 10 meq/Calcium Gluconate 9.3 meq/Sodium Acetate 70 meq/Multivitamins 14 ml/ Trace Metals 1.4 ml/ Amino Acids/Electrolytes/Dextrose 1,440 mls @ 60 mls/hr IVCONT DAILY@1800 [facility] Stop: 04/09/22 17:59 Last Admin: 04/08/22 18:00 Dose: 60 mls/hr Documented By: CAMILA Albumin Human (Kedbumin 25 %) 100 mls @ 100 mls/hr IV Q6H [facility] Stop: 04/10/22 03:44 Last Infusion: 04/09/22 17:16 Dose: 0 mls/hr Documented By: JOVANNI Lactated Ringer's (Lr) 1,000 mls @ 100 mls/hr IVCONT .Q10H [facility] Last Admin: 04/09/22 12:31 Dose: 100 mls/hr Documented By: JOVANNI Magnesium Sulfate 10 meq/Calcium Gluconate 9.3 meq/Sodium Acetate 60 meq/Multivitamins 14 ml/ Trace Metals 1.4 ml/ Amino Acids/Electrolytes/Dextrose 960 mls @ 40 mls/hr IVCONT DAILY@1800 [facility] Stop: 04/10/22 17:59 Potassium Chloride (Potassium Chloride/H20) 10 meq in 100 mls @ 100 mls/hr IV Q1H [facility] Stop: 04/09/22 17:44 Last Admin: 04/09/22 17:13 Dose: 100 mls/hr Documented By: JOVANNI Insulin Human Lispro (Insulin Lispro 100 Unit/Ml 3 Ml Vial) 0 unit SUBCUT QIDACHS [facility]; Protocol Last Admin: 04/09/22 15:15 Dose: Not Given Documented By: JOVANNI Non-Admin Reason: No Insulin Coverage Magnesium Oxide (Magnesium Oxide 400 Mg Tablet) 400 mg PO BID [facility] Last Admin: 04/09/22 12:32 Dose: 400 mg Documented By: JOVANNI Melatonin (Melatonin 3 Mg Tablet) 6 mg PO BEDTIME PRN PRN Reason: insomnia Nadolol (Nadolol 20 Mg Tablet) 20 mg PO DAILY [facility]; Protocol Last Admin: 04/06/22 09:05 Dose: Not Given Documented By: BIANCA Non-Admin Reason: See Note Octreotide Acetate (Octreotide Acetate 50 Mcg/Ml Vial) 100 mcg SUBCUT Q8H [facility] Last Admin: 04/09/22 10:49 Dose: 100 mcg Documented By: JOVANNI Olanzapine (Olanzapine 2.5 Mg Tablet) 2.5 mg PO BEDTIME [facility] Last Admin: 04/08/22 20:57 Dose: 2.5 mg Documented By: ANDRIA Pantoprazole Sodium (Pantoprazole Sodium 40 Mg/10 Ml Vial) 40 mg IVPUSH DAILY@0630 [facility] Last Admin: 04/09/22 05:36 Dose: 40 mg Documented By: ANDRIA Rifaximin (Rifaximin 550 Mg Tablet) 550 mg PO BID [facility] Last Admin: 04/06/22 09:05 Dose: Not Given Documented By: BIANCA Non-Admin Reason: See Note Sodium Chloride (0.9 % Sodium Chloride Flush 3 Ml Syringe) 3 ml IVFLUSH QSHIFT [facility] Last Admin: 04/09/22 17:16 Dose: Not Given Documented By: JOVANNI Non-Admin Reason: No Insulin Coverage Labs CBC & Chem 7: 04/08/22 05:48 04/09/22 08:19 Labs: Laboratory Results - last 24 hr 04/08/22 04/09/22 04/09/22 19:46 05:48 08:04 Anion Gap 12 Estim Creat Clear Calc 15.2 Estimated GFR 14 POC Glucose 192 H 182 H Random Glucose 182 H Calcium 8.4 Phosphorus Magnesium Albumin Triglycerides 04/09/22 04/09/22 04/09/22 08:19 11:29 16:47 Anion Gap 15 Estim Creat Clear Calc 15.0 Estimated GFR 14 POC Glucose 170 H 231 H Random Glucose 202 H D Calcium 8.3 L Phosphorus 3.8 Magnesium 2.2 Albumin 3.8 D Triglycerides 108 Assessment and Plan (1) Elevated serum creatinine: Status: Acute (2) Failure to thrive in adult: Status: Acute (3) Hypoxia: Status: Acute (4) Schizophrenia, chronic condition: Status: Acute (5) Encephalopathy acute: Status: Acute (6) Anemia: Status: Acute (7) Hypothermia: Status: Acute Plan 76-year-old male presents unresponsive, hypotensive, hypothermic in the backdrop of active urinary sediment.? More cooperative with Zyprexa however somewhat agitated overnight.? Additional dose of Zyprexa given ?acute hypoxemic respiratory failure,? possible secondary hypoalbuminemia ,possible liver disease /cirrosis ,? CHF ( unclear etiology) hypoxia improving echo : ef 55-60% ?chest x-ray-? Atelectasis /effusion, ABG reviewed- pH seems fine., ammonia? Fine. daily weight,i/o, incentive spirometry, chest physiotherapy,? Continue suctioning,? Oxygen support,?oxygen support-keep sats 92 % hold lasix less likely chf- may be fluid overload sec to prbc /fluids ,atlactasis might also contributin cardiology followin toxic metabolic encephalopathy :? Multifactorial( acute hypoxemic respiratory failure/ CHF/electrolytic abnormalities/ poor oral intake/ dementia) slightly slowly somewhat improvin ?supportive care. ?CT head negative,mri reviewed by neuro,EEG due to fairly severe diffuse background slowing consistent with a diffuse encephalopathic process. neuro saw the patient-encephalopathy Possibly? related to multifactorial basis with? hypoxia, metabolic abnormalities and baseline dementia Hematuria changed villareal -percutaneous nephrostomy tube draining clear urine since patient more cooperative urology called for follow up-? Urology will follow-up with [facility] -may need to change to villareal ? UTI completed antibiotics -culture unreliable from nephrostomy tube.? ?urine culture noted- received 7 days of antibiotic, discussed with infectious disease- urine culture and chest x-ray: patient does not have any leukocytosis or fever, blood culture negative, off? ceftriaxone. Hypothermia-intermittent ,moniter -no further hypothermia since 04/04 tsh boderline elevated? ,add t4 boderline low will check with endocrinology for recomendations -follow tsh and free t4 in 1week -follow rectal times ?Anemia/thrombocytopenia-multifactorial : poor oral inatke/hematuria also contributin,live dis -stable at this time between 7-8 range -follow daily CBCs Type 2 diabetes: flacutaing fs 170's -diet resumed.. .? limited intake ? Adjustedlispro coorectional scale. ?Dementia with agitated features -arousable this a.m. likely secondary to overnight Zyprexa -will hold p.o. dose this a.m. and follow -portable chest done - please see above in UTI section. ?possible failure to thrive/hypoalbuminemia:? patient is not eating well from at least 2 weeks. ? Family currently does not wants central line so started PPN ?family does not want tube feeding also seen by speech and swallow -added diet. hx of HHC s/p ablation ,as well as hx of bladder cancer on palltive immunotherpay: supportive care stan on ckd: possible related to above, hx of liver dis ?alcohol cr trending up-urine creatinine, sodium, total protein added Abdominal ultrasound-seems improving hydronephrosis as per family his basline cr is between 2-3 continue ppn,hold lasix, encourage po hydration ,added albumin on rifraximine/nadolol Nephrology following-? Hepatorenal versus pre renal: continue IV fluid, p.o. hydration, albumin and TPN for now- urine creatinine, sodium, total protein added, monitor BMP closely ? Hepatorenal versus pre renal Urology also changed folic catheter. ?above management discussed with patient family in detail length they understand and in agreement with the above , healthcare proxy Mr. Menezes- they understand the patient prognosis is poor, currently continue conservative management, if patient condition further deteriorate please inform the family . also called [facility] for patient records. Full code Vena dynes boots-due to? Anemia/thrombocytopenia ongoing hospitalization for treatment:multiple issues ,acute hypoxemic respiratory failure multifactorial,FTT, toxic metabolic encephalopathy -as above. Quality Stroke Does the patient have a stroke diagnosis?: No VTE Prior VTE?: No VTE Risk Level:: Medical - moderate - high VTE Device Contraindication: N/A - Device Ordered VTE Drug Contraindication: Treatment Not Indicated
[2022-04-09 20:00] VITALS: BP 141/80; PULSE 50; RESP 20; TEMP 36.6; O2SAT 96
[2022-04-09 21:24] LABS: Glucose, Whole Blood 216 mg/dL (60-115)
[2022-04-09] MEDS: Acetaminophen 325 MG TABLET 650 MG PO (21:49)
[2022-04-09 23:47] LABS: Creatinine Urine 19.17 mg/dL; Total Protein Urine Random 77 mg/dL (<12)
[2022-04-10] VITALS (8 sets, daily range): BP systolic 113–162; BP diastolic 64–95; PULSE 50–108; RESP 16–20; TEMP 32.7–36.9; O2SAT 93–96
[2022-04-10] MEDS: Thiamine HCL 400 MG in 0.9 % Sodium Chloride 100 ML 208 MG IV ×3 (02:29→16:54)
[2022-04-10] MEDS: Albumin Human 25 % 100 ML IV (04:41)
[2022-04-10 07:18] LABS: Albumin Level 4.8 g/dL (3.5-5.0); Magnesium 2.2 mg/dL (1.6-2.6); Phosphorus 3.6 mg/dL (2.7-4.5); Triglycerides 103 mg/dL
[2022-04-10] MEDS: Pantoprazole Sodium 40 MG/10 ML VIAL IVPUSH (07:42)
[2022-04-10 08:00] LABS: Glucose, Whole Blood 222 mg/dL (60-115)
[2022-04-10 08:04] LABS: Anion Gap 16 (12-20); Blood Urea Nitrogen 77 mg/dL (9-16); Calcium 9.3 mg/dL (8.4-10.2); Carbon Dioxide 17 mmol/L (22-29); Chloride 108 mmol/L (96-108); Creatinine Clr Calc Pharmacy 14.8; Estimated Glomerular Filt Rate 14; Glucose Random 247 mg/dL (60-115); Potassium 3.6 mmol/L (3.3-5.1); Sodium 137 mmol/L (135-145)
--- NOTE | 2022-04-10 08:29 | PC.NURSE ---
pt has low rectal temp of 90.9, pt wrapped in warm blanket, will recheck in 30 mins for improvement.
[2022-04-10] MEDS: Ferrous Sulfate 324 MG TABLET.DR PO (09:41)
[2022-04-10] MEDS: 0.9 % Sodium Chloride Flush 3 ML SYRINGE IVFLUSH (09:42)
[2022-04-10] MEDS: Insulin Lispro 100 UNIT/ML 3 ML VIAL SUBCUT ×2 (09:56→14:03)
[2022-04-10] MEDS: Magnesium Oxide 400 MG TABLET PO ×2 (09:57→22:10)
[2022-04-10 11:14] LABS: Glucose, Whole Blood 222 mg/dL (60-115)
[2022-04-10] MEDS: ondansetron HCL 4 MG/2 ML VIAL IVPUSH (14:03)
--- NOTE | 2022-04-10 14:18 | PM.PNNEP ---
Subjective Subjective Date of Service: 04/10/22 Interval history: More awake Family at the bed side Physical Exam Vital Signs: Vital Signs: Last Vital Signs Temp 96.0 F L 04/10/22 12:00 Pulse 63 04/10/22 12:00 Resp 20 04/10/22 12:00 BP 162/76 H 04/10/22 12:00 Pulse Ox 94 04/10/22 12:00 O2 Del Method 04/10/22 12:00 O2 Flow Rate 1 04/10/22 12:00 Oxygen Flow Rate 4 03/31/22 10:53 BMI result Body Mass Index 29.5 Appearance: mostly awake ,tried to mumble his name. cvs: [id number], [id number] . res: diminshed at bases, no rales or wheezin abd: no rebound or guarding ,nt, bs present. ext pulses present , no cyanosis , no edema . neuro:colud able to move arms , wiggle toes.sit on command with lot of assitance. Objective Data Labs CBC & Chem 7: 04/08/22 05:48 04/10/22 06:01 Labs: Laboratory Results - last 24 hr 04/09/22 04/09/22 04/09/22 16:47 21:18 23:20 Sodium Potassium Chloride Carbon Dioxide Anion Gap BUN Creatinine Estim Creat Clear Calc Estimated GFR POC Glucose 231 H 216 H Random Glucose Calcium Phosphorus Magnesium Albumin Triglycerides U Random Total Protein 77 H Ur Random Sodium 113.0 Urine Creatinine 19.17 04/10/22 04/10/22 04/10/22 06:01 06:01 07:54 Sodium 137 Potassium 3.6 Chloride 108 Carbon Dioxide 17 L Anion Gap 16 BUN 77 H Creatinine 4.22 H* Estim Creat Clear Calc 14.8 Estimated GFR 14 POC Glucose 222 H Random Glucose 247 H Calcium 9.3 D Phosphorus 3.6 Magnesium 2.2 Albumin 4.8 Triglycerides 103 U Random Total Protein Ur Random Sodium Urine Creatinine 04/10/22 11:06 Sodium Potassium Chloride Carbon Dioxide Anion Gap BUN Creatinine Estim Creat Clear Calc Estimated GFR POC Glucose 222 H Random Glucose Calcium Phosphorus Magnesium Albumin Triglycerides U Random Total Protein Ur Random Sodium Urine Creatinine Microbiology Microbiology Results: Microbiology 03/31/22 15:07 Blood - Venous Blood Culture - Final No growth after 5 days. 03/31/22 15:07 Blood - Venous Blood Culture - Final No growth after 5 days. 03/31/22 00:00 Urine Other - Nephrostomy Urine Culture - Final Staphylococcus cohnii ssp urea 03/31/22 15:02 Blood - Venous Blood Culture - Final 03/31/22 15:02 Blood - Venous Blood Culture - Final Procedures Date of Service Date of Service: 04/10/22 Assessment & Plan Assessment and plan (1) ANDREEA (acute kidney injury): Status: Acute Assessment and Plan: 1. Acute kidney injury superimposed on chronic kidney disease. ?The chronic kidney disease, most likely due to diabetic nephropathy, although he has not undergone a biopsy.? The superimposed acute kidney injury is most likely due to obstructive uropathy based on the recent imaging studies.? There could be a component of volume depletion. 2. Severe anemia, which is multifactorial. 3. Hyperchloremic metabolic acidosis in the setting of renal failure. 4. Bladder carcinoma with obstructive uropathy, status post left PCN. 5. Cirrhosis of the liver. 6. History of hypertension.? He has had multiple episodes of hypotension. ? RECOMMENDATIONS:? ? Flush Waldrop catheterization as neede to keep it flowing given hematuris and follow up with Urology.? Watch potassium and replace as needed.? Since the blood pressure is low, I will hold the amlodipine for now. ? I ordered for AM iron, TIBC, ferritin to see if he requires an iron replacement.? If the iron studies are adequate, he may benefit from erythropoietin replacement therapy. ? Continue to avoid nephrotoxic agents including NSAIDs.? Agree with LR / TPN as ordered U sodium high - Non oliguric - Will d/c Octreotide We will follow him closely along with the team. ? (2) Bladder cancer: Status: Acute Time Spent With Patient Time: Total time spent is greater than 50% in coordination of care (as documented) at patient's floor/unit and/or counseling patient: Progress Note: Quality Stroke Does the patient have a stroke diagnosis?: No
--- NOTE | 2022-04-10 14:20 | P.PNIM_ITS ---
Subjective Subjective Date of Service: 04/10/22 Interval History: more awake ,eating slighty has hypothermia Review of Systems no fever? overnight, has villareal Decreased urine output through Villareal but has urine in the nephrostomy tube( total around 450 ml today).? Physical Exam Vital Signs: Vital Signs: Last Vital Signs Temp 96.0 F L 04/10/22 12:00 Pulse 63 04/10/22 12:00 Resp 20 04/10/22 12:00 BP 162/76 H 04/10/22 12:00 Pulse Ox 94 04/10/22 12:00 O2 Del Method 04/10/22 12:00 O2 Flow Rate 1 04/10/22 12:00 Oxygen Flow Rate 4 03/31/22 10:53 BMI result Body Mass Index 29.5 Appearance: mostly awake ,tried to mumble his name. cvs: [id number], [id number] . res: diminshed at bases, no rales or wheezin abd: no rebound or guarding ,nt, bs present. ext pulses present , no cyanosis , no edema . neuro:colud able to move arms , wiggle toes.sit on command with lot of assitance. Objective Data Active Medications Acetaminophen (Acetaminophen 325 Mg Tablet) 650 mg PO Q6H PRN PRN Reason: Pain, Mild (Pain Scale 1-3) Last Admin: 04/09/22 21:49 Dose: 650 mg Documented By: JOVANNI Albuterol/Ipratropium (Albuterol/Iprat 2.5/0.5mg 3 Ml Ampul.Neb) 3 ml INHALE Q4H PRN PRN Reason: sob Amlodipine Besylate (Amlodipine Besylate 10 Mg Tablet) 10 mg PO DAILY [facility]; Protocol Last Admin: 04/06/22 09:04 Dose: Not Given Documented By: BIANCA Non-Admin Reason: See Note Aspirin (Aspirin 81 Mg Tab.Chew) 81 mg PO DAILY [facility] Last Admin: 04/06/22 09:04 Dose: Not Given Documented By: BIANCA Non-Admin Reason: See Note Atorvastatin Calcium (Atorvastatin Calcium 40 Mg Tablet) 40 mg PO DAILY [facility] Last Admin: 04/06/22 09:04 Dose: Not Given Documented By: BIANCA Non-Admin Reason: See Note Dextrose (Dextrose 50 % 25 Gm/50 Ml Syringe) 25 gm IVPUSH Q15M PRN; Protocol PRN Reason: per Hypoglycemia Standing Ord. Ferrous Sulfate (Ferrous Sulfate 324 Mg Tablet.) 324 mg PO DAILY [facility] Last Admin: 04/10/22 09:41 Dose: 324 mg Documented By: HAM Glucose (Glucose Gel 15 Gm Gel..Gram.) 15 gm PO Q15M PRN; Protocol PRN Reason: per Hypoglycemia Standing Ord. Thiamine HCl 400 mg/ Sodium (Chloride) 104 mls @ 208 mls/hr IV Q8H [facility] Last Infusion: 04/10/22 10:42 Dose: 0 mls/hr Documented By: HAM Magnesium Sulfate 10 meq/Calcium Gluconate 9.3 meq/Sodium Acetate 60 meq/Multivitamins 14 ml/ Trace Metals 1.4 ml/ Amino Acids/Electrolytes/Dextrose 960 mls @ 40 mls/hr IVCONT DAILY@1800 [facility] Stop: 04/10/22 17:59 Last Admin: 04/09/22 18:36 Dose: 40 mls/hr Documented By: JOVANNI Magnesium Sulfate 5 meq/Calcium Gluconate 4.65 meq/Sodium Acetate 30 meq/Potassium Acetate 20 meq/Multivitamins 10.5 ml/ Trace Metals 1 ml/ Amino Acids/Electrolytes/Dextrose 960 mls @ 40 mls/hr IVCONT DAILY@1800 [facility] Stop: 04/11/22 17:59 Lactated Ringer's (Lr) 1,000 mls @ 80 mls/hr IVCONT .[id number] [facility] Insulin Human Lispro (Insulin Lispro 100 Unit/Ml 3 Ml Vial) 0 unit SUBCUT QIDACHS [facility]; Protocol Last Admin: 04/10/22 14:03 Dose: 2 unit Documented By: HAM Magnesium Oxide (Magnesium Oxide 400 Mg Tablet) 400 mg PO BID [facility] Last Admin: 04/10/22 09:57 Dose: 400 mg Documented By: HAM Melatonin (Melatonin 3 Mg Tablet) 6 mg PO BEDTIME PRN PRN Reason: insomnia Nadolol (Nadolol 20 Mg Tablet) 20 mg PO DAILY [facility]; Protocol Last Admin: 04/06/22 09:05 Dose: Not Given Documented By: JOLIE-ANDRESSA Non-Admin Reason: See Note Octreotide Acetate (Octreotide Acetate 50 Mcg/Ml Vial) 100 mcg SUBCUT Q8H [facility] Last Admin: 04/10/22 09:41 Dose: 100 mcg Documented By: HAM Olanzapine (Olanzapine 2.5 Mg Tablet) 2.5 mg PO BEDTIME [facility] Last Admin: 04/09/22 22:03 Dose: Not Given Documented By: JOVANNI Non-Admin Reason: Physician Held Med Ondansetron HCl (Ondansetron Hcl 4 Mg/2 Ml Vial) 4 mg IVPUSH Q6H PRN PRN Reason: Nausea Pantoprazole Sodium (Pantoprazole Sodium 40 Mg/10 Ml Vial) 40 mg IVPUSH DAILY@0630 [facility] Last Admin: 04/10/22 07:42 Dose: 40 mg Documented By: ESTHER Rifaximin (Rifaximin 550 Mg Tablet) 550 mg PO BID [facility] Last Admin: 04/06/22 09:05 Dose: Not Given Documented By: BIANCA Non-Admin Reason: See Note Sodium Chloride (0.9 % Sodium Chloride Flush 3 Ml Syringe) 3 ml IVFLUSH QSHIFT [facility] Last Admin: 04/10/22 09:42 Dose: 3 ml Documented By: HAM Labs CBC & Chem 7: 04/08/22 05:48 04/10/22 06:01 Labs: Laboratory Results - last 24 hr 04/09/22 04/09/22 04/09/22 16:47 21:18 23:20 Anion Gap Estim Creat Clear Calc Estimated GFR POC Glucose 231 H 216 H Random Glucose Calcium Phosphorus Magnesium Albumin Triglycerides U Random Total Protein 77 H Ur Random Sodium 113.0 Urine Creatinine 19.17 04/10/22 04/10/22 04/10/22 06:01 06:01 07:54 Anion Gap 16 Estim Creat Clear Calc 14.8 Estimated GFR 14 POC Glucose 222 H Random Glucose 247 H Calcium 9.3 D Phosphorus 3.6 Magnesium 2.2 Albumin 4.8 Triglycerides 103 U Random Total Protein Ur Random Sodium Urine Creatinine 04/10/22 11:06 Anion Gap Estim Creat Clear Calc Estimated GFR POC Glucose 222 H Random Glucose Calcium Phosphorus Magnesium Albumin Triglycerides U Random Total Protein Ur Random Sodium Urine Creatinine Assessment and Plan (1) ANDREEA (acute kidney injury): Status: Acute (2) Elevated serum creatinine: Status: Acute (3) Failure to thrive in adult: Status: Acute (4) Schizophrenia, chronic condition: Status: Acute (5) Bladder cancer: Status: Acute (6) Encephalopathy acute: Status: Acute Plan 76-year-old male presents unresponsive, hypotensive, hypothermic in the backdrop of active urinary sediment.? More cooperative with Zyprexa however somewhat agitated overnight.? Additional dose of Zyprexa given ?acute hypoxemic respiratory failure,? possible secondary hypoalbuminemia ,possible liver disease /cirrosis ,? CHF ( unclear etiology) hypoxia improving echo : ef 55-60% ?chest x-ray-? Atelectasis /effusion, ABG reviewed- pH seems fine., ammonia? Fine. daily weight,i/o, incentive spirometry, chest physiotherapy,? Continue suctioning,? Oxygen support,?oxygen support-keep sats 92 % hold lasix less likely chf- may be fluid overload sec to prbc /fluids ,atlactasis might also contributin cardiology followin toxic metabolic encephalopathy :? Multifactorial( acute hypoxemic respiratory failure/ CHF/electrolytic abnormalities/ poor oral intake/ dementia) slightly slowly somewhat improvin ?supportive care. ?CT head negative,mri reviewed by neuro,EEG due to fairly severe diffuse backgr ound slowing consistent with a diffuse encephalopathic process. neuro saw the patient-encephalopathy Possibly? related to multifactorial basis with? hypoxia, metabolic abnormalities and baseline dementia Hematuria changed villareal -percutaneous nephrostomy tube draining clear urine since patient more cooperative urology called for follow up-? Urology will follow-up with [facility] -may need to change to villareal ? UTI completed antibiotics -culture unreliable from nephrostomy tube.? ?urine culture noted- received 7 days of antibiotic, discussed with infectious disease- urine culture and chest x-ray: patient does not have any leukocytosis or fever, blood culture negative, off? ceftriaxone. Hypothermia-intermittent ,moniter -no further hypothermia since 04/04 tsh boderline elevated? ,add t4 boderline low will check with endocrinology for recomendations -follow tsh and free t4 in 1week -follow rectal times ?Anemia/thrombocytopenia-multifactorial : poor oral inatke/hematuria also cont ributin,live dis -stable at this time between 7-8 range -follow daily CBCs Type 2 diabetes: flacutaing fs 170's -diet resumed.. .? limited intake ? Adjustedlispro coorectional scale. ?Dementia with agitated features -arousable this a.m. likely secondary to overnight Zyprexa -will hold p.o. dose this a.m. and follow -portable chest done - please see above in UTI section. ?possible failure to thrive/hypoalbuminemia:? patient is not eating well from at least 2 weeks. ? Family currently does not wants central line so started PPN ?family does not want tube feeding also seen by speech and swallow -added diet. hx of HHC s/p ablation ,as well as hx of bladder cancer on palltive immunotherpay: supportive care andreea on ckd: possible related to above, hx of liver dis ?alcohol cr trending up-urine creatinine, sodium, total protein added Abdominal ultrasound-seems improving hydronephrosis as per family his basline cr is between 2-3 continue ppn,hold lasix, encourage po hydration ,added albumin on rifraximine/nadolol Nephrology following-? Hepatorenal versus pre renal: continue IV fluid, p.o. hydration, albumin and TPN for now- urine creatinine, sodium, total protein added, monitor BMP closely d/w Gi -less likely hepatorenal nephro recomended -cr similar to yesterda-possible competent of pre renal, bicarb is around 17: Recommended to continue LR at 80 mL/hour Urology also changed folic catheter. ?above management discussed with patient family in detail length they understand and in agreement with the above , healthcare proxy Mr. Menezes- they understand the patient prognosis is poor, currently continue conservative management, if patient condition further deteriorate please inform the family . also called [facility] for patient records. Full code Vena dynes boots-due to? Anemia/thrombocytopenia ongoing hospitalization for treatment:multiple issues ,acute hypoxemic respiratory failure multifactorial,FTT, toxic metabolic encephalopathy -as above. Quality Stroke Does the patient have a stroke diagnosis?: No VTE Prior VTE?: No VTE Risk Level:: Medical - moderate - high VTE Device Contraindication: N/A - Device Ordered VTE Drug Contraindication: Treatment Not Indicated
[2022-04-10] MEDS: Lactated Ringers 1,000 ML 80 ML IVCONT (16:08)
[2022-04-10 16:23] LABS: Glucose, Whole Blood 177 mg/dL (60-115)
--- NOTE | 2022-04-10 16:27 | PM.PSYCN ---
History of Present Illness Date of Service: 04/10/2022 Chief Complaint: Hypoxia, ?CHF Reason for Consult: medication Requesting physician: Paolo Berry Discussed with referring provider: Yes Sources of Information: patient interviewed and chart reviewed HPI Narrative: Pt seen in re-consult. He is again unresponsive, sitting up in bed in hospital attire, poor eye contact, appears to be watching television, [employer] on, but does not seem to be engaged in content. Pt is now adherent with PO medication and taking the zyprexa 2.5 mg, primary provider has noticed there is with some improvement in mentation but unclear if this is attributable to the neuroleptic. Pt's HCP is advocating for pt to be put back on maintenance zyprexa dose of 5 mg HS, as the 2.5 mg has not been sedating. Past Psychiatric History: schizophrenia, maintained for years on zyprexa FOR[facility]LY [facility] Medical History (Updated 04/10/22 @ 14:14 by Anil Mc MD) ANDREEA (acute kidney injury) Diagnostics Vital Signs (24Hr): Vital Signs - 24 hr 04/09/22 20:00 04/10/22 00:00 04/10/22 04:00 Temperature 97.8 F 97.2 F 97 F Pulse Rate 50 58 53 Respiratory Rate 20 20 20 Blood Pressure 141/80 H 160/95 H 150/80 H Pulse Oximetry 96 96 94 Oxygen Delivery Method Nasal Cannula Nasal Cannula Nasal Cannula Oxygen Flow Rate 1 2 2 04/10/22 08:00 04/10/22 12:00 04/10/22 15:23 Temperature 90.9 F L 96.0 F L 96.8 F Pulse Rate 52 63 59 Respiratory Rate 20 20 16 Blood Pressure 141/80 H 162/76 H 116/68 Pulse Oximetry 93 94 95 Oxygen Delivery Method Nasal Cannula Nasal Cannula Nasal Cannula Oxygen Flow Rate 1 1 1 BMI result Body Mass Index 29.5 Labs Results: 04/10/22 18:32 04/10/22 06:01 Labs: Laboratory Results - last 48 hr 04/08/22 04/08/22 04/09/22 16:21 19:46 05:48 Sodium 138 Potassium 3.4 Chloride 110 H Carbon Dioxide 19 L Anion Gap 12 BUN 78 H Creatinine 4.11 H* Estim Creat Clear Calc 15.2 Estimated GFR 14 POC Glucose 122 H 192 H Random Glucose 182 H Calcium 8.4 Phosphorus Magnesium Albumin Triglycerides U Random Total Protein Ur Random Sodium Urine Creatinine 04/09/22 04/09/22 04/09/22 08:04 08:19 11:29 Sodium 142 Potassium 3.4 Chloride 112 H Carbon Dioxide 18 L Anion Gap 15 BUN 83 H D Creatinine 4.17 H* Estim Creat Clear Calc 15.0 Estimated GFR 14 POC Glucose 182 H 170 H Random Glucose 202 H D Calcium 8.3 L Phosphorus 3.8 Magnesium 2.2 Albumin 3.8 D Triglycerides 108 U Random Total Protein Ur Random Sodium Urine Creatinine 04/09/22 04/09/22 04/09/22 16:47 21:18 23:20 Sodium Potassium Chloride Carbon Dioxide Anion Gap BUN Creatinine Estim Creat Clear Calc Estimated GFR POC Glucose 231 H 216 H Random Glucose Calcium Phosphorus Magnesium Albumin Triglycerides U Random Total Protein 77 H Ur Random Sodium 113.0 Urine Creatinine 19.17 04/10/22 04/10/22 04/10/22 06:01 06:01 07:54 Sodium 137 Potassium 3.6 Chloride 108 Carbon Dioxide 17 L Anion Gap 16 BUN 77 H Creatinine 4.22 H* Estim Creat Clear Calc 14.8 Estimated GFR 14 POC Glucose 222 H Random Glucose 247 H Calcium 9.3 D Phosphorus 3.6 Magnesium 2.2 Albumin 4.8 Triglycerides 103 U Random Total Protein Ur Random Sodium Urine Creatinine 04/10/22 04/10/22 11:06 16:14 Sodium Potassium Chloride Carbon Dioxide Anion Gap BUN Creatinine Estim Creat Clear Calc Estimated GFR POC Glucose 222 H 177 H Random Glucose Calcium Phosphorus Magnesium Albumin Triglycerides U Random Total Protein Ur Random Sodium Urine Creatinine Imaging Radiology Impressions: ITS Impressions Head CT 03/31/22 10:48 IMPRESSION: No acute intracranial pathology. Mild generalized atrophy and nonspecific periventricular white matter disease. This critical result was discussed with workstation were at 1054 hours on 03/31/2022. It was ascertained that the content and urgency of the report was understood at the time of direct communication. Head/Neck CTA 03/31/22 10:56 IMPRESSION: - No acute intracranial findings. 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 Chronic encephalomalacia and gliosis within the right temporal lobe. If focal neurologic deficit persists and if not contraindicated, a MRI of the brain would be helpful in further assessment. 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 An underlying right vertebral artery dissection cannot be excluded. - Extensive atherosclerotic disease involving the carotid bifurcations bilaterally resulting in an 80-90% stenosis of the proximal right internal carotid artery and a 70% stenosis of the proximal left internal carotid artery. Retropharyngeal course of both proximal internal carotid arteries bilaterally. - There is right periauricular soft tissue stranding and thickening of the right cartilaginous external auditory canal that they can be correlated for clinical signs of right-sided otitis externa. Soft tissue within the external auditory canals bilaterally, likely cerumen that can also be correlated with direct visual inspection. Findings discussed with Dr.Steven Perez at 11:04 AM on 03/31/2022. Chest X-Ray 03/31/22 15:57 IMPRESSION: * Bilateral patchy airspace opacities are nonspecific. Pulmonary edema or pneumonitis could have this appearance. * Small right pleural effusion with accompanying atelectasis. Chest X-Ray 04/01/22 00:37 IMPRESSION: Cardiomegaly with pulmonary vascular congestion and small right effusion. Appearances are slightly improved when compared to yesterday. Abdomen/Pelvis CT 04/03/22 05:35 IMPRESSION: 1. Left percutaneous nephrostomy tube is in place. Bilateral hydroureter with right-sided hydronephrosis. The dilatation extends to the level of the bladder. Etiology is uncertain. This could be associated with outlet obstruction, though infection or mass are not excluded. 2. Moderate right and small left pleural effusions. Patchy opacities at the lung bases could be infectious or inflammatory. 3. Abdominal aortic aneurysm measuring 4.1 cm transverse. Recommend follow-up every 6 months and nonemergent vascular consultation. 4. Cholelithiasis. Fleischner guidelines were followed. Chest X-Ray 04/05/22 10:20 IMPRESSION: Interval decrease in pulmonary vascular congestion with persistent small right pleural effusion. Chest X-Ray 04/06/22 01:25 IMPRESSION: Small right pleural effusion with adjacent basilar atelectasis versus consolidation, similar to possibly slightly improved from prior. Head CT 04/06/22 09:47 IMPRESSION: No acute intracranial process seen. This critical result was discussed with at 9:49 AM on 04/06/2022. It was ascertained that the content and urgency of the report was understood at the time of direct communication. Chest X-Ray 04/06/22 09:50 IMPRESSION: Moderate opacification right lung base likely combination of effusion/atelectasis or infiltrate. The left lung is clear. Cardiomegaly. Venous Duplex 04/06/22 12:55 IMPRESSION: No DVT demonstrated in the bilateral lower extremities. Pulmonary Perfusion Imaging 04/06/22 14:35 IMPRESSION: Very low probability of pulmonary embolism. Abnormalities described above are likely due to a right pleural effusion. Brain MRI 04/06/22 19:35 IMPRESSION: 1. No acute infarct or other acute intracranial abnormality. 2. Ventriculomegaly with slightly disproportionate ventricular enlargement relative to the degree of cerebral volume loss with sulcal crowding at the vertex. Recommend clinical correlation for normal pressure hydrocephalus. 3. Moderate chronic microangiopathy. 4. Encephalomalacia and gliosis in the lateral right temporal lobe, possibly posttraumatic. 5. Abnormal flow related signal of the distal cervical and intradural right vertebral artery related to known cervical occlusion better assessed on preceding CTA. Abdomen Ultrasound 04/09/22 10:55 IMPRESSION: 1. Left nephrostomy tube in place without hydronephrosis. Tiny renal cysts bilaterally demonstrate benign features not requiring follow-up. 2. Cholelithiasis without evidence for acute cholecystitis. Mild mural thickening is likely secondary to incomplete distention/chronic change. Mental Status Exam Mental Status Exam Narrative: Pt is alert, however still unresponsive, frail appearing, in hospital attire. Unable to assess thoughts. Medications Medications Current Medications Acetaminophen (Acetaminophen 325 Mg Tablet) 650 mg PO Q6H PRN PRN Reason: Pain, Mild (Pain Scale 1-3) Last Admin: 04/09/22 21:49 Dose: 650 mg Albuterol/Ipratropium (Albuterol/Iprat 2.5/0.5mg 3 Ml Ampul.Neb) 3 ml INHALE Q4H PRN PRN Reason: sob Amlodipine Besylate (Amlodipine Besylate 10 Mg Tablet) 10 mg PO DAILY [facility]; Protocol Last Admin: 04/06/22 09:04 Dose: Not Given Aspirin (Aspirin 81 Mg Tab.Chew) 81 mg PO DAILY [facility] Last Admin: 04/06/22 09:04 Dose: Not Given Atorvastatin Calcium (Atorvastatin Calcium 40 Mg Tablet) 40 mg PO DAILY [facility] Last Admin: 04/06/22 09:04 Dose: Not Given Dextrose (Dextrose 50 % 25 Gm/50 Ml Syringe) 25 gm IVPUSH Q15M PRN; Protocol PRN Reason: per Hypoglycemia Standing Ord. Ferrous Sulfate (Ferrous Sulfate 324 Mg Tablet.Dr) 324 mg PO DAILY [facility] Last Admin: 04/10/22 09:41 Dose: 324 mg Glucose (Glucose Gel 15 Gm Gel..Gram.) 15 gm PO Q15M PRN; Protocol PRN Reason: per Hypoglycemia Standing Ord. Thiamine HCl 400 mg/ Sodium (Chloride) 104 mls @ 208 mls/hr IV Q8H [facility] Last Infusion: 04/10/22 10:42 Dose: Infused Magnesium Sulfate 10 meq/Calcium Gluconate 9.3 meq/Sodium Acetate 60 meq/Multivitamins 14 ml/ Trace Metals 1.4 ml/ Amino Acids/Electrolytes/Dextrose 960 mls @ 40 mls/hr IVCONT DAILY@1800 [facility] Stop: 04/10/22 17:59 Last Admin: 04/09/22 18:36 Dose: 40 mls/hr Magnesium Sulfate 5 meq/Calcium Gluconate 4.65 meq/Sodium Acetate 30 meq/Potassium Acetate 20 meq/Multivitamins 10.5 ml/ Trace Metals 1 ml/ Amino Acids/Electrolytes/Dextrose 960 mls @ 40 mls/hr IVCONT DAILY@1800 [facility] Stop: 04/11/22 17:59 Lactated Ringer's (Lr) 1,000 mls @ 80 mls/hr IVCONT .[id number] [facility] Last Admin: 04/10/22 16:08 Dose: 80 mls/hr Insulin Human Lispro (Insulin Lispro 100 Unit/Ml 3 Ml Vial) 0 unit SUBCUT QIDACHS [facility]; Protocol Last Admin: 04/10/22 14:03 Dose: 2 unit Magnesium Oxide (Magnesium Oxide 400 Mg Tablet) 400 mg PO BID [facility] Last Admin: 04/10/22 09:57 Dose: 400 mg Melatonin (Melatonin 3 Mg Tablet) 6 mg PO BEDTIME PRN PRN Reason: insomnia Nadolol (Nadolol 20 Mg Tablet) 20 mg PO DAILY [facility]; Protocol Last Admin: 04/06/22 09:05 Dose: Not Given Olanzapine (Olanzapine 2.5 Mg Tablet) 2.5 mg PO BEDTIME [facility] Last Admin: 04/09/22 22:03 Dose: Not Given Ondansetron HCl (Ondansetron Hcl 4 Mg/2 Ml Vial) 4 mg IVPUSH Q6H PRN PRN Reason: Nausea Pantoprazole Sodium (Pantoprazole Sodium 40 Mg/10 Ml Vial) 40 mg IVPUSH DAILY@0630 [facility] Last Admin: 04/10/22 07:42 Dose: 40 mg Rifaximin (Rifaximin 550 Mg Tablet) 550 mg PO BID [facility] Last Admin: 04/06/22 09:05 Dose: Not Given Sodium Bicarbonate (Sodium Bicarbonate 650 Mg Tablet) 650 mg PO BID [facility] Sodium Chloride (0.9 % Sodium Chloride Flush 3 Ml Syringe) 3 ml IVFLUSH QSHIFT [facility] Last Admin: 04/10/22 16:07 Dose: Not Given Allergies Allergies Allergy/AdvReac Type Severity Reaction Status Date / Time No Known Allergies Allergy Verified 03/31/22 10:34 Assessment & Plan Assessment & Plan (1) Schizophrenia, chronic condition: Status: Acute Code(s): F20.9 - Schizophrenia, unspecified Plan Plan: Increase zyprexa to 5 mg HS for psychotic sx, as this is his maintenance dose at home. Monitor benefit, no agitation and thus not requiring PRN. I spent minutes with the patient and/or on the patient floor today, greater than?50% of which was spent counseling/coordinating care. Patient educated on: other Guardian/Caregiver educated on: medication risk/benefits
[2022-04-10 18:43] LABS: Mean Corpuscular HGB Conc 33.7 g/dl (31.0-36.0); Mean Corpuscular Hemoglobin 27.8 pg (27.0-33.0); Mean Corpuscular Volume 82.5 fL (80.0-98.0); Mean Platelet Volume 10.4 fL (9.4-12.4); Red Blood Count 2.23 X10*6/uL (4.60-5.80); Red Cell Distribution Width 18.7 % (11.0-16.0); White Blood Count 6.8 X10*3/uL (4.8-10.8)
[2022-04-10 18:49] LABS: Platelet Count 70 X10*3/uL (160-400)
[2022-04-10 18:54] LABS: Hematocrit 18.4 % (42.0-52.0); Hemoglobin 6.2 g/dl (14.0-18.0)
[2022-04-10 19:46] LABS: Glucose, Whole Blood 159 mg/dL (60-115)
--- NOTE | 2022-04-10 20:28 | PC.NURSE ---
Pt AxOx1, pt feeding was inadequate throughout the day. Family was at bedside around noon, pt seems to have perked up and had some dinner. At 1700, pt began to be more sleep, while setting up PPN, BP was checked, pt BP manually was 85/68, made aware. recheck was 90/68. [place] output began with and outpour of keren forde MD at bedside, stat H&H drawn. Critical H&H received @ 0657 6.06/26.2. made aware and 1 Unit RBC's drawn for transfusion
[2022-04-10] MEDS: Sodium Bicarbonate 650 MG TABLET PO (22:10)
[2022-04-10] MEDS: OLANZapine 5 MG TABLET PO (22:10)
[2022-04-11] VITALS (10 sets, daily range): BP systolic 96–155; BP diastolic 53–85; PULSE 51–83; RESP 14–20; TEMP 34.5–38.2; O2SAT 92–98
[2022-04-11] MEDS: Thiamine HCL 400 MG in 0.9 % Sodium Chloride 100 ML 208 MG IV ×2 (01:48→08:19)
[2022-04-11] MEDS: Lactated Ringers 1,000 ML 80 ML IVCONT ×2 (02:02→21:18)
[2022-04-11] MEDS: Pantoprazole Sodium 40 MG/10 ML VIAL IVPUSH (06:22)
[2022-04-11 07:42] LABS: Iron 63 mcg/dL (45-160); Percent Iron Saturation 47 % (15-50); Total Iron Binding Capacity 135 mcg/dL (228-428); Unsaturated Iron Binding 72 ug/dL
[2022-04-11 08:00] LABS: Anion Gap 8 (12-20); Blood Urea Nitrogen 88 mg/dL (9-16); Calcium 8.3 mg/dL (8.4-10.2); Carbon Dioxide 16 mmol/L (22-29); Chloride 115 mmol/L (96-108); Creatinine Clr Calc Pharmacy 13.4; Estimated Glomerular Filt Rate 12; Glucose Random 142 mg/dL (60-115); Potassium 3.6 mmol/L (3.3-5.1); Sodium 135 mmol/L (135-145)
[2022-04-11 08:01] LABS: Albumin Level 3.6 g/dL (3.5-5.0); Anion Gap 7 (12-20); Blood Urea Nitrogen 87 mg/dL (9-16); Calcium 8.2 mg/dL (8.4-10.2); Carbon Dioxide 17 mmol/L (22-29); Chloride 115 mmol/L (96-108); Creatinine Clr Calc Pharmacy 13.3; Estimated Glomerular Filt Rate 12; Glucose Random 142 mg/dL (60-115); Phosphorus 4.4 mg/dL (2.7-4.5); Potassium 3.6 mmol/L (3.3-5.1); Sodium 135 mmol/L (135-145)
[2022-04-11 08:54] LABS: Glucose, Whole Blood 132 mg/dL (60-115)
--- NOTE | 2022-04-11 10:00 | W.ED.CONSULT ---
Consult Details Consult Details: Called by Dr. Berry to assist with line placement for IV fluids, lab draws and TPN. Patient seen on the floor. Implied consent (patient unable to respond for consent) obtained. Procedures Central Line Placement Right IJ: Time Out Performed: Yes Patient Placed on Monitor/Pulse Ox: Yes MD Prep: mask, gown and gloves Central Line Prep: Chlorhexidine scrub and sterile drapes applied Local Anesthetic: lidocaine 1% Amount of anesthesia used (mL): 5 Ultrasound Used for Placement: Yes Central Line Lumen Inserted: triple Post Procedure: sutured in place, good blood return, all ports aspirated, flushed, capped and sterile dressing applied Post Procedure X-Ray: tip of catheter in good position and no pneumothorax seen Patient Tolerated Procedure: no complications Complications: none
[2022-04-11 10:35] LABS: Hematocrit 19.2 % (42.0-52.0); Hemoglobin 6.5 g/dl (14.0-18.0)
[2022-04-11] MEDS: 0.9 % Sodium Chloride Flush 3 ML SYRINGE IVFLUSH ×2 (11:23→17:28)
--- NOTE | 2022-04-11 11:40 | P.PNIM_ITS ---
Subjective Subjective Date of Service: 04/11/22 Interval History: more somlescent has hypothermia intermitten -improvin Review of Systems unable to obtain Physical Exam Vital Signs: Vital Signs: Last Vital Signs Temp 98.6 F 04/11/22 08:00 Pulse 72 04/11/22 08:00 Resp 20 04/11/22 08:00 BP 124/66 04/11/22 08:00 Pulse Ox 95 04/11/22 08:00 O2 Del Method 04/11/22 08:00 O2 Flow Rate 1 04/11/22 08:00 Oxygen Flow Rate 4 03/31/22 10:53 BMI result Body Mass Index 29.5 ?Appearance: mostly somlescent. cvs: rrr, [id number] . res: diminshed at bases, no rales or wheezin abd: no rebound or guarding ,nt, bs present. ext pulses present , no cyanosis , no edema . neuro:unable to obtain. Objective Data Active Medications Acetaminophen (Acetaminophen 325 Mg Tablet) 650 mg PO Q6H PRN PRN Reason: Pain, Mild (Pain Scale 1-3) Last Admin: 04/09/22 21:49 Dose: 650 mg Documented By: JOVANNI Albuterol/Ipratropium (Albuterol/Iprat 2.5/0.5mg 3 Ml Ampul.Neb) 3 ml INHALE Q4H PRN PRN Reason: sob Amlodipine Besylate (Amlodipine Besylate 10 Mg Tablet) 10 mg PO DAILY [facility]; Protocol Last Admin: 04/06/22 09:04 Dose: Not Given Documented By: BIANCA Non-Admin Reason: See Note Aspirin (Aspirin 81 Mg Tab.Chew) 81 mg PO DAILY [facility] Last Admin: 04/06/22 09:04 Dose: Not Given Documented By: BIANCA Non-Admin Reason: See Note Atorvastatin Calcium (Atorvastatin Calcium 40 Mg Tablet) 40 mg PO DAILY [facility] Last Admin: 04/06/22 09:04 Dose: Not Given Documented By: BIANCA Non-Admin Reason: See Note Dextrose (Dextrose 50 % 25 Gm/50 Ml Syringe) 25 gm IVPUSH Q15M PRN; Protocol PRN Reason: per Hypoglycemia Standing Ord. Ferrous Sulfate (Ferrous Sulfate 324 Mg Tablet.) 324 mg PO DAILY [facility] Last Admin: 04/10/22 09:41 Dose: 324 mg Documented By: HAM Glucose (Glucose Gel 15 Gm Gel..Gram.) 15 gm PO Q15M PRN; Protocol PRN Reason: per Hypoglycemia Standing Ord. Thiamine HCl 400 mg/ Sodium (Chloride) 104 mls @ 208 mls/hr IV Q8H [facility] Last Infusion: 04/11/22 08:57 Dose: 0 mls/hr Documented By: BECKY Magnesium Sulfate 5 meq/Calcium Gluconate 4.65 meq/Sodium Acetate 30 meq/Potassium Acetate 20 meq/Multivitamins 10.5 ml/ Trace Metals 1 ml/ Amino Acids/Electrolytes/Dextrose 960 mls @ 40 mls/hr IVCONT DAILY@1800 [facility] Stop: 04/11/22 17:59 Last Infusion: 04/11/22 11:26 Dose: 40 mls/hr Documented By: BECKY Lactated Ringer's (Lr) 1,000 mls @ 80 mls/hr IVCONT .[id number] [facility] Last Infusion: 04/11/22 11:26 Dose: 80 mls/hr Documented By: BECKY Insulin Human Lispro (Insulin Lispro 100 Unit/Ml 3 Ml Vial) 0 unit SUBCUT QIDACHS [facility]; Protocol Last Admin: 04/11/22 08:34 Dose: Not Given Documented By: BECKY Non-Admin Reason: No Insulin Coverage Magnesium Oxide (Magnesium Oxide 400 Mg Tablet) 400 mg PO BID [facility] Last Admin: 04/11/22 09:00 Dose: Not Given Documented By: BECKY Non-Admin Reason: Hold per Melatonin (Melatonin 3 Mg Tablet) 6 mg PO BEDTIME PRN PRN Reason: insomnia Nadolol (Nadolol 20 Mg Tablet) 20 mg PO DAILY [facility]; Protocol Last Admin: 04/06/22 09:05 Dose: Not Given Documented By: BIANCA Non-Admin Reason: See Note Olanzapine (Olanzapine 5 Mg Tablet) 5 mg PO BEDTIME [facility] Last Admin: 04/10/22 22:10 Dose: 5 mg Documented By: JAXSON Ondansetron HCl (Ondansetron Hcl 4 Mg/2 Ml Vial) 4 mg IVPUSH Q6H PRN PRN Reason: Nausea Pantoprazole Sodium (Pantoprazole Sodium 40 Mg/10 Ml Vial) 40 mg IVPUSH DAILY@0630 [facility] Last Admin: 04/11/22 06:22 Dose: 40 mg Documented By: JULIANNE Rifaximin (Rifaximin 550 Mg Tablet) 550 mg PO BID [facility] Last Admin: 04/06/22 09:05 Dose: Not Given Documented By: BIANCA Non-Admin Reason: See Note Sodium Bicarbonate (Sodium Bicarbonate 650 Mg Tablet) 650 mg PO BID [facility] Last Admin: 04/11/22 09:00 Dose: Not Given Documented By: BECKY Non-Admin Reason: hold per Sodium Chloride (0.9 % Sodium Chloride Flush 3 Ml Syringe) 3 ml IVFLUSH QSHIFT [facility] Last Admin: 04/11/22 11:23 Dose: 3 ml Documented By: BECKY Labs CBC & Chem 7: 04/11/22 10:14 04/11/22 06:37 Labs: Laboratory Results - last 24 hr 04/10/22 04/10/22 04/10/22 16:14 18:32 18:32 MCV 82.5 MCH 27.8 MCHC 33.7 RDW 18.7 H Plt Count 70 L MPV 10.4 Absolute Nucleated RBC 0.000 Nucleated RBC % (auto) 0.0 Anion Gap Estim Creat Clear Calc Estimated GFR POC Glucose 177 H Random Glucose Calcium Phosphorus Magnesium Iron TIBC % Saturation Unsat Iron Binding Albumin Blood Type A Positive Antibody Screen NEGATIVE Crossmatch See Detail 04/10/22 04/11/22 04/11/22 19:37 06:37 06:37 MCV MCH MCHC RDW Plt Count MPV Absolute Nucleated RBC Nucleated RBC % (auto) Anion Gap 7 L 8 L Estim Creat Clear Calc 13.3 13.4 Estimated GFR 12 12 POC Glucose 159 H Random Glucose 142 H 142 H Calcium 8.2 L D 8.3 L Phosphorus 4.4 Magnesium 2.0 Iron TIBC % Saturation Unsat Iron Binding Albumin 3.6 Blood Type Antibody Screen Crossmatch 04/11/22 04/11/22 06:37 08:15 MCV MCH MCHC RDW Plt Count MPV Absolute Nucleated RBC Nucleated RBC % (auto) Anion Gap Estim Creat Clear Calc Estimated GFR POC Glucose 132 H Random Glucose Calcium Phosphorus Magnesium Iron 63 TIBC 135 L % Saturation 47 Unsat Iron Binding 72 Albumin Blood Type Antibody Screen Crossmatch Assessment and Plan (1) ANDREEA (acute kidney injury): Status: Acute (2) Elevated serum creatinine: Status: Acute (3) Failure to thrive in adult: Status: Acute (4) Schizophrenia, chronic condition: Status: Acute (5) Bladder cancer: Status: Acute (6) Encephalopathy acute: Status: Acute (7) Acute blood loss anemia: Status: Acute (8) Gross hematuria: Status: Acute Plan 76-year-old male presents unresponsive, hypotensive, hypothermic in the backdrop of active urinary sediment.? More cooperative with Zyprexa however somewhat agitated overnight.? Additional dose of Zyprexa given ?acute hypoxemic respiratory failure,? possible secondary hypoalbuminemia ,possible liver disease /cirrosis ,less likely CHF ( unclear etiology) hypoxia improving echo : ef 55-60% ?chest x-ray-? Atelectasis /effusion, ABG reviewed- pH seems fine., ammonia? Fine. daily weight,i/o, incentive spirometry, chest physiotherapy,? Continue suctioning,? Oxygen support,?oxygen support-keep sats 92 % hold lasix less likely chf- may be fluid overload sec to prbc /fluids ,atlactasis might also contributin cardiology followin toxic metabolic encephalopathy :? Multifactorial(electrolytic abnormalities/poor oral intake/ dementia/zyprexa,andreea on ckd) slightly slowly somewhat improvin ?supportive care. ?CT head negative,mri reviewed by neuro,EEG due to fairly severe diffuse background slowing consistent with a diffuse encephalopathic process. neuro saw the patient-encephalopathy Possibly? related to multifactorial basis with? hypoxia, metabolic abnormalities and baseline dementia ? UTI completed antibiotics -culture unreliable from nephrostomy tube.? ?urine culture noted- received 7 days of antibiotic, discussed with infectious disease- urine culture and chest x-ray: patient does not have any leukocytosis or fever, blood culture negative, off? ceftriaxone. Hypothermia-intermittent ,improvin tsh boderline elevated? ,add t4 boderline low will check with endocrinology for recomendations -follow tsh and free t4 in 1week ?Anemia/thrombocytopenia-multifactorial : poor oral inatke/hematuria also contributin,live dis -stable at this time between 7-8 range -follow daily CBCs Type 2 diabetes: flacutaing fs 130's hold diet due to somlescent ?lispro coorectional scale. ?Dementia with agitated features -somlonescent ,hold Zyprexa -portable chest done - please see above in UTI section. ?possible failure to thrive/hypoalbuminemia:? patient is not eating well from at least 2 weeks. ? Family currently does not wants central line so started PPN ?family does not want tube feeding also seen by speech and swallow -added diet. hx of HHC s/p ablation ,as well as hx of bladder cancer on palltive immunotherpay: supportive care andreea on ckd: multifactorial -ftt/bladder canncer ,hematuria cr trending up-urine creatinine, sodium, total protein and Abdominal ultrasound reviewed with nephro. as per family his basline cr is between 2-3 continue ppn,hold nephrotoxic meds ,iv hydration rifraximine/nadolol on hold due to somnolent d/w Gi -less likely hepatorenal Nephrology following-? Hepatorenal versus pre renal:willl change fluids to [id number] ,ppn. moniter bmp closely nephro recomended -cr similar to yesterda-possible competent of pre renal, bicarb is around 16: added [id number] drip acute blood loss anemia sec to hematuria ( in setting of bladder ca),andreea: Hematuria gross last night -somewhat clearing this morning -percutaneous nephrostomy tube draining clear urine since patient more cooperative urology will follow up if need cbi also given 1 prbc last night -h/h still 6.5 range , will add another prbc moniter h/h closely central line placed by ed-poor access ,need parental nutrition, PRBC, IV fluids, and medications as well as blood draws. ?above management discussed with patient family in detail length they understand and in agreement with the above , healthcare proxy Mr. Menezes- they understand the patient prognosis is poor, currently continue conservative management, if patient condition further deteriorate please inform the family . Full code Vena dynes boots-due to? Anemia/thrombocytopenia ongoing hospitalization for treatment:multiple issues ,acute hypoxemic respiratory failure multifactorial,FTT, toxic metabolic encephalopathy -as above. Quality Stroke Does the patient have a stroke diagnosis?: No VTE Prior VTE?: No VTE Risk Level:: Medical - moderate - high VTE Device Contraindication: N/A - Device Ordered VTE Drug Contraindication: Treatment Not Indicated
[2022-04-11 11:46] LABS: Glucose, Whole Blood 98 mg/dL (60-115)
--- NOTE | 2022-04-11 11:46 | PM.UROPN ---
Subjective Subjective Date of Service: 04/12/22 Patient reports: other (sommulent) Interval history: Called to place 3 way catheter for recurrent gross hematuria [address] initially, irrigated out clots using 1500 mL N.S. villareal did not irrigate well, needed to change to [address] CBI Physical Exam Vital Signs: Vital Signs: Last Vital Signs Temp 98.6 F 04/11/22 08:00 Pulse 72 04/11/22 08:00 Resp 20 04/11/22 08:00 BP 124/66 04/11/22 08:00 Pulse Ox 95 04/11/22 08:00 O2 Del Method 04/11/22 08:00 O2 Flow Rate 1 04/11/22 08:00 Oxygen Flow Rate 4 03/31/22 10:53 BMI result Body Mass Index 29.5 Urology Results Labs CBC & Chem 7: 04/12/22 07:20 04/12/22 07:20 Labs: Laboratory Results - last 24 hr 04/10/22 04/10/22 04/10/22 16:14 18:32 18:32 WBC 6.8 RBC 2.23 L D Hgb 6.2 L* Hct 18.4 L* MCV 82.5 MCH 27.8 MCHC 33.7 RDW 18.7 H Plt Count 70 L MPV 10.4 Absolute Nucleated RBC 0.000 Nucleated RBC % (auto) 0.0 Sodium Potassium Chloride Carbon Dioxide Anion Gap BUN Creatinine Estim Creat Clear Calc Estimated GFR POC Glucose 177 H Random Glucose Calcium Phosphorus Magnesium Iron TIBC % Saturation Unsat Iron Binding Albumin Blood Type A Positive Antibody Screen NEGATIVE Crossmatch See Detail 04/10/22 04/11/22 04/11/22 19:37 06:37 06:37 WBC RBC Hgb Hct MCV MCH MCHC RDW Plt Count MPV Absolute Nucleated RBC Nucleated RBC % (auto) Sodium 135 135 Potassium 3.6 3.6 Chloride 115 H 115 H Carbon Dioxide 17 L 16 L Anion Gap 7 L 8 L BUN 87 H 88 H Creatinine 4.68 H* 4.64 H* Estim Creat Clear Calc 13.3 13.4 Estimated GFR 12 12 POC Glucose 159 H Random Glucose 142 H 142 H Calcium 8.2 L D 8.3 L Phosphorus 4.4 Magnesium 2.0 Iron TIBC % Saturation Unsat Iron Binding Albumin 3.6 Blood Type Antibody Screen Crossmatch 04/11/22 04/11/22 04/11/22 06:37 08:15 10:14 WBC RBC Hgb 6.5 L* Hct 19.2 L* MCV MCH MCHC RDW Plt Count MPV Absolute Nucleated RBC Nucleated RBC % (auto) Sodium Potassium Chloride Carbon Dioxide Anion Gap BUN Creatinine Estim Creat Clear Calc Estimated GFR POC Glucose 132 H Random Glucose Calcium Phosphorus Magnesium Iron 63 TIBC 135 L % Saturation 47 Unsat Iron Binding 72 Albumin Blood Type Antibody Screen Crossmatch Urology Procedures Catheter Insertion (Urinary) Date of insertion: 04/11/22 Time of insertion: 13:01 Replacement of catheter present on admission: Yes Reason for placing: Other (gross hematuria, clots) Bladder scan/ultrasound used before catheterization: No Antiseptic solution prep: Povidone-Iodine Topical anesthesia used: Yes Catheter type/location: 3-way Urethral Size (Vietnamese): 24 Catheter balloon amount: 20 Results: successfully catheterized-immediate flow and consulted Procedure performed: without complications Additional comments: Initially size 22r [address] placed was in correct position, irrigated out several clots, however when CBI started fluid would not flow through catheter, changed to different catheter, which CBI worked well. Progress Note: A&P Assessment and plan (1) ANDREEA (acute kidney injury): Status: Acute (2) CHF (congestive heart failure): Status: Acute (3) Bladder cancer: Status: Acute Plan Patient receiving transfusion Hand Irrigated several clots at bedside Continuous bladder irrigaton Time Spent With Patient Time: Total time spent is greater than 50% in coordination of care (as documented) at patient's floor/unit and/or counseling patient: Progress Note: Quality Stroke Does the patient have a stroke diagnosis?: No
[2022-04-11] MEDS: Phytonadione (Vit K1) 10 MG in 0.9 % Sodium Chloride 50 ML 51 MG IV (13:48)
[2022-04-11] MEDS: Acetaminophen Supp 650 MG SUPP.RECT PR (14:10)
[2022-04-11 14:53] LABS: Procalcitonin 0.24 ng/mL
[2022-04-11] MEDS: Thiamine HCL 100 MG in 0.9 % Sodium Chloride 100 ML 208 MG IV ×2 (15:15→20:25)
[2022-04-11 16:13] LABS: Glucose, Whole Blood 134 mg/dL (60-115)
[2022-04-11] MEDS: Piperacillin Sodium/Tazobactam 2.25 GM in 0.9 % Sodium Chloride 50 ML IV ×2 (16:13→20:28)
[2022-04-11] MEDS: Sodium Bicarbonate 8.4% 150 MEQ in Dextrose 5 % 850 ML 80 MEQ IV (16:19)
--- NOTE | 2022-04-11 16:43 | PM.PNNEP ---
Subjective Subjective Date of Service: 04/11/22 Interval history: more somlescent has hypothermia intermitten -improvin Physical Exam Vital Signs: Vital Signs: Last Vital Signs Temp 99.5 F 04/11/22 15:45 Pulse 77 04/11/22 15:45 Resp 18 04/11/22 15:45 BP 104/58 L 04/11/22 15:45 Pulse Ox 97 04/11/22 15:45 O2 Del Method 04/11/22 15:45 O2 Flow Rate 1 04/11/22 15:45 Oxygen Flow Rate 4 03/31/22 10:53 BMI result Body Mass Index 29.5 Objective Data Labs CBC & Chem 7: 04/11/22 10:14 04/11/22 06:37 Labs: Laboratory Results - last 24 hr 04/10/22 04/10/22 04/10/22 18:32 18:32 19:37 WBC 6.8 RBC 2.23 L D Hgb 6.2 L* Hct 18.4 L* MCV 82.5 MCH 27.8 MCHC 33.7 RDW 18.7 H Plt Count 70 L MPV 10.4 Absolute Nucleated RBC 0.000 Nucleated RBC % (auto) 0.0 Sodium Potassium Chloride Carbon Dioxide Anion Gap BUN Creatinine Estim Creat Clear Calc Estimated GFR POC Glucose 159 H Random Glucose Calcium Phosphorus Magnesium Iron TIBC % Saturation Unsat Iron Binding Albumin Procalcitonin Blood Type A Positive Antibody Screen NEGATIVE Crossmatch See Detail 04/11/22 04/11/22 04/11/22 06:37 06:37 06:37 WBC RBC Hgb Hct MCV MCH MCHC RDW Plt Count MPV Absolute Nucleated RBC Nucleated RBC % (auto) Sodium 135 135 Potassium 3.6 3.6 Chloride 115 H 115 H Carbon Dioxide 17 L 16 L Anion Gap 7 L 8 L BUN 87 H 88 H Creatinine 4.68 H* 4.64 H* Estim Creat Clear Calc 13.3 13.4 Estimated GFR 12 12 POC Glucose Random Glucose 142 H 142 H Calcium 8.2 L D 8.3 L Phosphorus 4.4 Magnesium 2.0 Iron 63 TIBC 135 L % Saturation 47 Unsat Iron Binding 72 Albumin 3.6 Procalcitonin Blood Type Antibody Screen Crossmatch 04/11/22 04/11/22 04/11/22 06:37 08:15 10:14 WBC RBC Hgb 6.5 L* Hct 19.2 L* MCV MCH MCHC RDW Plt Count MPV Absolute Nucleated RBC Nucleated RBC % (auto) Sodium Potassium Chloride Carbon Dioxide Anion Gap BUN Creatinine Estim Creat Clear Calc Estimated GFR POC Glucose 132 H Random Glucose Calcium Phosphorus Magnesium Iron TIBC % Saturation Unsat Iron Binding Albumin Procalcitonin 0.24 Blood Type Antibody Screen Crossmatch 04/11/22 04/11/22 11:38 16:07 WBC RBC Hgb Hct MCV MCH MCHC RDW Plt Count MPV Absolute Nucleated RBC Nucleated RBC % (auto) Sodium Potassium Chloride Carbon Dioxide Anion Gap BUN Creatinine Estim Creat Clear Calc Estimated GFR POC Glucose 98 134 H Random Glucose Calcium Phosphorus Magnesium Iron TIBC % Saturation Unsat Iron Binding Albumin Procalcitonin Blood Type Antibody Screen Crossmatch Microbiology Microbiology Results: Microbiology 03/31/22 15:07 Blood - Venous Blood Culture - Final No growth after 5 days. 03/31/22 15:07 Blood - Venous Blood Culture - Final No growth after 5 days. 03/31/22 00:00 Urine Other - Nephrostomy Urine Culture - Final Staphylococcus cohnii ssp urea 03/31/22 15:02 Blood - Venous Blood Culture - Final 03/31/22 15:02 Blood - Venous Blood Culture - Final Procedures Date of Service Date of Service: 04/11/22 Assessment & Plan Assessment and plan (1) ANDREEA (acute kidney injury): Status: Acute Assessment and Plan: 1. Acute kidney injury superimposed on chronic kidney disease. ?The chronic kidney disease, most likely due to diabetic nephropathy, although he has not undergone a biopsy.? The superimposed acute kidney injury is most likely due to obstructive uropathy based on the recent imaging studies.? There could be a component of volume depletion. 2. Severe anemia, which is multifactorial. 3. Hyperchloremic metabolic acidosis in the setting of renal failure. 4. Bladder carcinoma with obstructive uropathy, status post left PCN. 5. Cirrhosis of the liver. 6. History of hypertension.? He has had multiple episodes of hypotension. ? RECOMMENDATIONS:? ? 3 way - CBI Urology f/u Watch potassium and replace as needed.? Since the blood pressure is low, I will continue to hold the amlodipine for now. ?Transfuse as needd to keep HB > 7.0 I ordered for AM iron, TIBC, ferritin to see if he requires an iron replacement.? If the iron studies are adequate, he may benefit from erythropoietin replacement therapy. ?IVF with Bicarb Continue to avoid nephrotoxic agents including NSAIDs.? U sodium high - Non oliguric - Will d/c Octreotide D/w Family - NO DESSERT CUP MACHINE FEEDER if renal func worsens d/w Medical team We will follow him closely along with the team. ? (2) Failure to thrive in adult: Status: Acute (3) Gross hematuria: Status: Acute (4) Bladder cancer: Status: Acute Time Spent With Patient Time: Total time spent is greater than 50% in coordination of care (as documented) at patient's floor/unit and/or counseling patient: Progress Note: Quality Stroke Does the patient have a stroke diagnosis?: No
[2022-04-11] MEDS: Doxycycline Hyclate 100 MG in 0.9 % Sodium Chloride 250 ML 166.67 MG IV (17:11)
[2022-04-11 19:22] LABS: Hematocrit 19.8 % (42.0-52.0)
[2022-04-11 20:53] LABS: Anion Gap 17 (12-20); Blood Urea Nitrogen 95 mg/dL (9-16); Calcium 7.9 mg/dL (8.4-10.2); Carbon Dioxide 18 mmol/L (22-29); Chloride 112 mmol/L (96-108); Estimated Glomerular Filt Rate 11; Glucose Random 170 mg/dL (60-115); Potassium 3.9 mmol/L (3.3-5.1); Sodium 143 mmol/L (135-145)
[2022-04-11 20:55] LABS: Glucose, Whole Blood 154 mg/dL (60-115)
[2022-04-11 22:50] LABS: Hemoglobin 6.6 g/dl (14.0-18.0)
[2022-04-12] VITALS (8 sets, daily range): BP systolic 110–141; BP diastolic 59–75; PULSE 55–70; RESP 16–20; TEMP 35.6–36.7; O2SAT 96–97
[2022-04-12] MEDS: Piperacillin Sodium/Tazobactam 2.25 GM in 0.9 % Sodium Chloride 50 ML IV ×4 (02:23→22:20)
[2022-04-12] MEDS: Doxycycline Hyclate 100 MG in 0.9 % Sodium Chloride 250 ML 166.67 MG IV ×2 (02:24→13:17)
[2022-04-12] MEDS: Sodium Bicarbonate 8.4% 150 MEQ in Dextrose 5 % 850 ML 80 MEQ IV ×2 (03:27→18:20)
[2022-04-12] MEDS: Thiamine HCL 100 MG in 0.9 % Sodium Chloride 100 ML 208 MG IV ×3 (03:49→23:26)
[2022-04-12] MEDS: Pantoprazole Sodium 40 MG/10 ML VIAL IVPUSH (04:50)
[2022-04-12 07:24] LABS: Glucose, Whole Blood 120 mg/dL (60-115)
[2022-04-12 07:58] LABS: Hematocrit 24.6 % (42.0-52.0); Hemoglobin 8.4 g/dl (14.0-18.0); Mean Corpuscular HGB Conc 34.1 g/dl (31.0-36.0); Mean Corpuscular Hemoglobin 28.8 pg (27.0-33.0); Mean Corpuscular Volume 84.2 fL (80.0-98.0); Mean Platelet Volume 10.9 fL (9.4-12.4); Red Blood Count 2.92 X10*6/uL (4.60-5.80); Red Cell Distribution Width 16.5 % (11.0-16.0); White Blood Count 8.1 X10*3/uL (4.8-10.8)
[2022-04-12 07:59] LABS: Platelet Count 69 X10*3/uL (160-400)
[2022-04-12 08:02] LABS: Albumin Level 3.3 g/dL (3.5-5.0); Anion Gap 16 (12-20); Blood Urea Nitrogen 92 mg/dL (9-16); Calcium 8.1 mg/dL (8.4-10.2); Carbon Dioxide 19 mmol/L (22-29); Chloride 114 mmol/L (96-108); Creatinine Clr Calc Pharmacy 12.3; Estimated Glomerular Filt Rate 11; Glucose Random 118 mg/dL (60-115); Magnesium 2.1 mg/dL (1.6-2.6); Phosphorus 3.5 mg/dL (2.7-4.5); Potassium 3.8 mmol/L (3.3-5.1); Sodium 145 mmol/L (135-145)
[2022-04-12] MEDS: 0.9 % Sodium Chloride Flush 3 ML SYRINGE IVFLUSH ×2 (08:19→15:15)
--- NOTE | 2022-04-12 08:57 | PM.UROPN ---
Subjective Subjective Date of Service: 04/12/22 Interval history: continue acute on chronic renal injury urine sodium and creatinine measured calculated FeNa suggestive of obstructive component patent, well draining left PCN would suggest placement of right PCN if warranted invasive bladder cancer with Waldrop catheter for bladder drainage. Physical Exam Vital Signs: Vital Signs: Last Vital Signs Temp 97.3 F 04/12/22 08:00 Pulse 59 04/12/22 08:00 Resp 18 04/12/22 08:00 BP 141/75 H 04/12/22 08:00 Pulse Ox 97 04/12/22 08:00 O2 Del Method 04/12/22 08:00 O2 Flow Rate 1 04/12/22 08:00 Oxygen Flow Rate 4 03/31/22 10:53 BMI result Body Mass Index 29.5 Const: General: cooperative, healthy appearing, comfortable and no acute distress Orientation/consciousness: patient oriented x3 HEENT: Face and sinus: Yes normal facial exam Mouth: moist mucous membranes Neck: Neck: Yes normal visual inspection, Yes full ROM and Yes trachea midline Chest: Chest palpation & inspection: normal inspection of the chest Resp: Effort & Inspection: normal respiratory effort, able to speak in complete sentences and no respiratory distress GI: Inspection: Yes normal to inspection Back/Spine/Pelvis: Cervical Spine: normal cervical lordosis Thoracic/Lumbar Spine: thoracic and lumbar spine normal to inspection Skin: General skin exam: no rashes or lesions noted Neuro: General: patient oriented x3, tone normal and moves all extremities Extrem: General: Yes normal to inspection and Yes capillary refill normal Urology Results Labs CBC & Chem 7: 04/12/22 07:20 04/12/22 07:20 Labs: Laboratory Results - last 24 hr 04/10/22 04/11/22 04/11/22 18:32 06:37 10:14 WBC RBC Hgb 6.5 L* Hct 19.2 L* MCV MCH MCHC RDW Plt Count MPV Absolute Nucleated RBC Nucleated RBC % (auto) Sodium Potassium Chloride Carbon Dioxide Anion Gap BUN Creatinine Estim Creat Clear Calc Estimated GFR POC Glucose Random Glucose Calcium Phosphorus Magnesium Albumin Procalcitonin 0.24 Blood Type A Positive Antibody Screen NEGATIVE Crossmatch See Detail 04/11/22 04/11/22 04/11/22 11:38 16:07 18:52 WBC RBC Hgb 6.6 L* Hct 19.8 L* MCV MCH MCHC RDW Plt Count MPV Absolute Nucleated RBC Nucleated RBC % (auto) Sodium Potassium Chloride Carbon Dioxide Anion Gap BUN Creatinine Estim Creat Clear Calc Estimated GFR POC Glucose 98 134 H Random Glucose Calcium Phosphorus Magnesium Albumin Procalcitonin Blood Type Antibody Screen Crossmatch 04/11/22 04/11/22 04/12/22 20:19 20:41 07:07 WBC RBC Hgb Hct MCV MCH MCHC RDW Plt Count MPV Absolute Nucleated RBC Nucleated RBC % (auto) Sodium 143 Potassium 3.9 Chloride 112 H Carbon Dioxide 18 L Anion Gap 17 BUN 95 H Creatinine 5.18 H* Estim Creat Clear Calc 12.0 Estimated GFR 11 POC Glucose 154 H 120 H Random Glucose 170 H Calcium 7.9 L Phosphorus Magnesium Albumin Procalcitonin Blood Type Antibody Screen Crossmatch 04/12/22 04/12/22 07:20 07:20 WBC 8.1 RBC 2.92 L D Hgb 8.4 L D Hct 24.6 L D MCV 84.2 MCH 28.8 MCHC 34.1 RDW 16.5 H Plt Count 69 L MPV 10.9 Absolute Nucleated RBC 0.000 Nucleated RBC % (auto) 0.0 Sodium 145 Potassium 3.8 Chloride 114 H Carbon Dioxide 19 L Anion Gap 16 BUN 92 H Creatinine 5.06 H* Estim Creat Clear Calc 12.3 Estimated GFR 11 POC Glucose Random Glucose 118 H Calcium 8.1 L Phosphorus 3.5 Magnesium 2.1 Albumin 3.3 L Procalcitonin Blood Type Antibody Screen Crossmatch Progress Note: A&P Assessment and plan (1) ANDREEA (acute kidney injury): Status: Acute (2) CHF (congestive heart failure): Status: Acute (3) Bladder cancer: Status: Acute Plan Suggest right PCN tube if indicated for obstruction Time Spent With Patient Time: Total time spent is greater than 50% in coordination of care (as documented) at patient's floor/unit and/or counseling patient: Progress Note: Quality Stroke Does the patient have a stroke diagnosis?: No
--- NOTE | 2022-04-12 10:11 | MHC.CM.PN ---
DP LTC @ a SNF. referrals have been updated and sent to facilities. No dc today. Patient has Hematuria. DP SNF via BLS.
[2022-04-12 11:04] LABS: Glucose, Whole Blood 143 mg/dL (60-115)
--- NOTE | 2022-04-12 11:49 | MHC.CLN ---
F/U RECEIVED PPN D10AA4.25 YESTERDAY AT 30ML/HR PROVIDED 367KCALS, 31G PROTEIN REVIEWED LABS; NOTED CONTINUOUS INCREASING BUN/CREAT-NEPHRO FOLLOWING DIET RX: PUREED DIET WITH NT LIQ-APPROPRIATE PER SWIMMING TEACHER PT DID EAT 04/10 BUT PO INTAKE NOW 0% PT REMAINS LETHARGIC DISCUSSED WITH PHARMACY PPN TO CONTINUE; RECOMMEND CONTINUING FORMULA D10AA4.25 AT 30ML/HR TO PROVIDE 367KCALS, 31G PROTEIN REPLETE LYTES NEEDED; MONITOR BUN/CREAT CLOSELY MONITOR PO INTAKE CLOSELY NOTED FAMILY DOES NOT WANT CENTRAL LINE OR FEEDING TUBE FOLLOWING WITH TEAM
--- NOTE | 2022-04-12 12:20 | PM.PNNEP ---
Subjective Subjective Date of Service: 04/13/22 Interval history: Family at bedside more somlescent has hypothermia intermitten -improvin Physical Exam Vital Signs: Vital Signs: Last Vital Signs Temp 97.3 F 04/12/22 11:32 Pulse 56 04/12/22 11:32 Resp 16 04/12/22 11:32 BP 126/66 04/12/22 11:32 Pulse Ox 96 04/12/22 11:32 O2 Del Method 04/12/22 11:32 O2 Flow Rate 2 04/12/22 11:32 Oxygen Flow Rate 4 03/31/22 10:53 BMI result Body Mass Index 29.5 Const: General: lethargic Orientation/consciousness: lethargic Neck: Neck: Yes supple Resp: Effort & Inspection: no respiratory distress Cardio: Heart sounds: no murmurs and no rubs GI: Palpation (GI): Soft to palpation Extrem: General: No clubbing and No cyanosis Objective Data Labs CBC & Chem 7: 04/12/22 07:20 04/13/22 07:35 Labs: Laboratory Results - last 24 hr 04/10/22 04/11/22 04/11/22 18:32 06:37 16:07 WBC RBC Hgb Hct MCV MCH MCHC RDW Plt Count MPV Absolute Nucleated RBC Nucleated RBC % (auto) Sodium Potassium Chloride Carbon Dioxide Anion Gap BUN Creatinine Estim Creat Clear Calc Estimated GFR POC Glucose 134 H Random Glucose Calcium Phosphorus Magnesium Albumin Procalcitonin 0.24 Blood Type A Positive Antibody Screen NEGATIVE Crossmatch See Detail 04/11/22 04/11/22 04/11/22 18:52 20:19 20:41 WBC RBC Hgb 6.6 L* Hct 19.8 L* MCV MCH MCHC RDW Plt Count MPV Absolute Nucleated RBC Nucleated RBC % (auto) Sodium 143 Potassium 3.9 Chloride 112 H Carbon Dioxide 18 L Anion Gap 17 BUN 95 H Creatinine 5.18 H* Estim Creat Clear Calc 12.0 Estimated GFR 11 POC Glucose 154 H Random Glucose 170 H Calcium 7.9 L Phosphorus Magnesium Albumin Procalcitonin Blood Type Antibody Screen Crossmatch 04/12/22 04/12/22 04/12/22 07:07 07:20 07:20 WBC 8.1 RBC 2.92 L D Hgb 8.4 L D Hct 24.6 L D MCV 84.2 MCH 28.8 MCHC 34.1 RDW 16.5 H Plt Count 69 L MPV 10.9 Absolute Nucleated RBC 0.000 Nucleated RBC % (auto) 0.0 Sodium 145 Potassium 3.8 Chloride 114 H Carbon Dioxide 19 L Anion Gap 16 BUN 92 H Creatinine 5.06 H* Estim Creat Clear Calc 12.3 Estimated GFR 11 POC Glucose 120 H Random Glucose 118 H Calcium 8.1 L Phosphorus 3.5 Magnesium 2.1 Albumin 3.3 L Procalcitonin Blood Type Antibody Screen Crossmatch 04/12/22 10:56 WBC RBC Hgb Hct MCV MCH MCHC RDW Plt Count MPV Absolute Nucleated RBC Nucleated RBC % (auto) Sodium Potassium Chloride Carbon Dioxide Anion Gap BUN Creatinine Estim Creat Clear Calc Estimated GFR POC Glucose 143 H Random Glucose Calcium Phosphorus Magnesium Albumin Procalcitonin Blood Type Antibody Screen Crossmatch Microbiology Microbiology Results: Microbiology 03/31/22 15:07 Blood - Venous Blood Culture - Final No growth after 5 days. 03/31/22 15:07 Blood - Venous Blood Culture - Final No growth after 5 days. 03/31/22 00:00 Urine Other - Nephrostomy Urine Culture - Final Staphylococcus cohnii ssp urea 03/31/22 15:02 Blood - Venous Blood Culture - Final 03/31/22 15:02 Blood - Venous Blood Culture - Final Procedures Date of Service Date of Service: 04/12/22 Assessment & Plan Assessment and plan (1) ANDREEA (acute kidney injury): Status: Acute Assessment and Plan: 1. Acute kidney injury superimposed on chronic kidney disease. ?The chronic kidney disease, most likely due to diabetic nephropathy, although he has not undergone a biopsy.? The superimposed acute kidney injury is most likely due to obstructive uropathy based on the recent imaging studies.? There could be a component of volume depletion. 2. Severe anemia, which is multifactorial. 3. Hyperchloremic metabolic acidosis in the setting of renal failure. 4. Bladder carcinoma with obstructive uropathy, status post left PCN. 5. Cirrhosis of the liver. 6. History of hypertension.? He has had multiple episodes of hypotension. ? RECOMMENDATIONS:? ? 3 way - CBI Urology f/u Watch potassium Since the blood pressure is low, I will continue to hold the amlodipine for now. ?Transfuse as needed to keep HB > 7.0 , he may benefit from erythropoietin replacement therapy. ?IVF with Bicarb Continue to avoid nephrotoxic agents including NSAIDs.? U sodium high - Non oliguric -d/c Octreotide D/w Family(nephew) - NO VISUAL PRESENTATION MANAGER if renal func worsens d/w Medical team We will follow him closely along with the team. ? (2) Failure to thrive in adult: Status: Acute (3) Gross hematuria: Status: Acute (4) Bladder cancer: Status: Acute Time Spent With Patient Time: Total time spent is greater than 50% in coordination of care (as documented) at patient's floor/unit and/or counseling patient: Progress Note: Quality Stroke Does the patient have a stroke diagnosis?: No
[2022-04-12] MEDS: Lactated Ringers 1,000 ML 80 ML IVCONT (13:17)
--- NOTE | 2022-04-12 13:46 | MHC.SL.SWA ---
Speech Pathologist Impression: Oropharyngeal dysphagia Risk of Aspiration Due to: Medically Fragile Poor PO Intake Reduced Cognition Weak Cough Dysphasia Diet Status: Recommend continue diet of PUREE (NDD1) with NECTAR THICK liquids by tsp only, with pills CRUSHED in PUREE. Patient will need 1-1 feeding with close monitor for swallow before presenting any additional food/liquid, strict monitor for aspiration signs (discontinue if patient is coughing on food/liquid, or if patient sounds wet/gurgly during meal). Do not attempt if patient is lethargic or non-compliant. Ice chips for comfort. Liquid Consistency and Strategies for Safe Swallow: Liquid Intake Recommendation: Pana Thick Liquid Intake Strategies: Small Sips Liquids by Teaspoon Only Solid Food Consistency: Dietary Recommendations: Pureed (NDD1) Additional Modifications to Solid Foods: Patient will need 1-1 feeding with close monitor for swallow before presenting any additional food/liquid, strict monitor for aspiration signs (discontinue if patient is coughing on food/liquid, or if patient sounds wet/gurgly during meal). Do not attempt if patient is lethargic or non-compliant. Oral Medication Intake: Crushed with Puree Please contact the pharmacy regarding appropriate crushable or liquid drug formulations that are available whenever modified delivery is recommended. Compensatory Strategies and Precautions to be Taken for Safe Swallow: Sitting Upright (90 deg) No Straw Liquids from Spoon Small Bites and Sips Alternate Liquids/Solids Rate of Ingestion Change Oral Check Supervision While Eating and Drinking for Safe Swallow: Total Assistance (1:1) Foods to Avoid: Sticky, congealed purees, or very thin consistencies (e.g. pureed soups). Add sauces/gravies and blend well. Swallowing Recommended Treatments: Compens. Strategy Educat. Recommendation for Speech: Outpatient Speech Therapy Inpatient Speech Therapy Antenna Machine Operator Clinican/Clinical Fellow: No Supervisory Statement: I have reviewed and agree with the student/clinical fellow's documentation: N/A Speech Language Pathologist: Florecita Ba M.A., CCC-AMBULATORY SERVICE REPRESENTATIVE
[2022-04-12] MEDS: ondansetron HCL 4 MG/2 ML VIAL IVPUSH (15:07)
--- NOTE | 2022-04-12 15:35 | HO.PM.IMPN ---
Subjective Subjective Date of Service: 04/12/22 Interval History: more awake ,eating slighty Intermittent hypothermia Review of Systems no fever? overnight, has villareal nephrostomy tube(400ml) Physical Exam Vital Signs: Vital Signs: Last Vital Signs Temp 97.3 F 04/12/22 11:32 Pulse 56 04/12/22 11:32 Resp 16 04/12/22 11:32 BP 126/66 04/12/22 11:32 Pulse Ox 96 04/12/22 11:32 O2 Del Method 04/12/22 11:32 O2 Flow Rate 2 04/12/22 11:32 Oxygen Flow Rate 4 03/31/22 10:53 BMI result Body Mass Index 29.5 Appearance: more awake than before . cvs: rrr, [id number] . res: diminshed at bases, no rales or wheezin abd: no rebound or guarding ,nt, bs present. ext pulses present , no cyanosis , no edema . neuro:unable to obtain. Objective Data Active Medications Acetaminophen (Acetaminophen 325 Mg Tablet) 650 mg PO Q6H PRN PRN Reason: Pain, Mild (Pain Scale 1-3) Last Admin: 04/09/22 21:49 Dose: 650 mg Documented By: JOVANNI Albuterol/Ipratropium (Albuterol/Iprat 2.5/0.5mg 3 Ml Ampul.Neb) 3 ml INHALE Q4H PRN PRN Reason: sob Amlodipine Besylate (Amlodipine Besylate 10 Mg Tablet) 10 mg PO DAILY [facility]; Protocol Last Admin: 04/06/22 09:04 Dose: Not Given Documented By: BIANCA Non-Admin Reason: See Note Aspirin (Aspirin 81 Mg Tab.Chew) 81 mg PO DAILY [facility] Last Admin: 04/06/22 09:04 Dose: Not Given Documented By: BIANCA Non-Admin Reason: See Note Atorvastatin Calcium (Atorvastatin Calcium 40 Mg Tablet) 40 mg PO DAILY [facility] Last Admin: 04/06/22 09:04 Dose: Not Given Documented By: BIANCA Non-Admin Reason: See Note Dextrose (Dextrose 50 % 25 Gm/50 Ml Syringe) 25 gm IVPUSH Q15M PRN; Protocol PRN Reason: per Hypoglycemia Standing Ord. Ferrous Sulfate (Ferrous Sulfate 324 Mg Tablet.) 324 mg PO DAILY [facility] Last Admin: 04/10/22 09:41 Dose: 324 mg Documented By: HAM Glucose (Glucose Gel 15 Gm Gel..Gram.) 15 gm PO Q15M PRN; Protocol PRN Reason: per Hypoglycemia Standing Ord. Magnesium Sulfate 5 meq/Calcium Gluconate 4.65 meq/Sodium Acetate 30 meq/Potassium Acetate 20 meq/Multivitamins 10.5 ml/ Trace Metals 1 ml/ Amino Acids/Electrolytes/Dextrose 720 mls @ 30 mls/hr IVCONT DAILY@1800 [facility] Stop: 04/12/22 17:59 Last Admin: 04/11/22 17:16 Dose: 30 mls/hr Documented By: BECKY Sodium Bicarbonate 150 meq/ (Dextrose) 1,000 mls @ 80 mls/hr IV .[id number] [facility] Last Admin: 04/12/22 12:43 Dose: Not Given Documented By: MOHAN Non-Admin Reason: IV Running Thiamine HCl 100 mg/ Sodium (Chloride) 101 mls @ 208 mls/hr IV Q8H [facility] Last Infusion: 04/12/22 14:00 Dose: 0 mls/hr Documented By: MOHAN Doxycycline Hyclate 100 mg/ (Sodium Chloride) 250 mls @ 166.67 mls/hr IV Q12H [facility] Last Infusion: 04/12/22 15:16 Dose: 0 mls/hr Documented By: MOHAN Piperacillin Sod/Tazobactam (Sod 2.25 gm/ Sodium Chloride) 50 mls @ 100 mls/hr IV Q6H [facility] Last Admin: 04/12/22 15:14 Dose: 100 mls/hr Documented By: MOHAN Magnesium Sulfate 5 meq/Calcium Gluconate 4.65 meq/Sodium Acetate 30 meq/Potassium Acetate 20 meq/Multivitamins 14 ml/ Trace Metals 1.4 ml/ Amino Acids/Electrolytes/Dextrose 720 mls @ 30 mls/hr IVCONT DAILY@1800 [facility] Stop: 04/13/22 17:59 Insulin Human Lispro (Insulin Lispro 100 Unit/Ml 3 Ml Vial) 0 unit SUBCUT QIDACHS [facility]; Protocol Last Admin: 04/12/22 11:50 Dose: Not Given Documented By: MOHAN Non-Admin Reason: No Insulin Coverage Magnesium Oxide (Magnesium Oxide 400 Mg Tablet) 400 mg PO BID [facility] Last Admin: 04/11/22 09:00 Dose: Not Given Documented By: BECKY Non-Admin Reason: Hold per MD Melatonin (Melatonin 3 Mg Tablet) 6 mg PO BEDTIME PRN PRN Reason: insomnia Nadolol (Nadolol 20 Mg Tablet) 20 mg PO DAILY [facility]; Protocol Last Admin: 04/06/22 09:05 Dose: Not Given Documented By: BIANCA Non-Admin Reason: See Note Olanzapine (Olanzapine 5 Mg Tablet) 5 mg PO BEDTIME [facility] Last Admin: 04/10/22 22:10 Dose: 5 mg Documented By: JAXSON Ondansetron HCl (Ondansetron Hcl 4 Mg/2 Ml Vial) 4 mg IVPUSH Q6H PRN PRN Reason: Nausea Last Admin: 04/12/22 15:07 Dose: 4 mg Documented By: MOHAN Rifaximin (Rifaximin 550 Mg Tablet) 550 mg PO BID [facility] Last Admin: 04/06/22 09:05 Dose: Not Given Documented By: BIANCA Non-Admin Reason: See Note Sodium Bicarbonate (Sodium Bicarbonate 650 Mg Tablet) 650 mg PO BID [facility] Last Admin: 04/11/22 09:00 Dose: Not Given Documented By: BECKY Non-Admin Reason: hold per Sodium Chloride (0.9 % Sodium Chloride Flush 3 Ml Syringe) 3 ml IVFLUSH QSHIFT [facility] Last Admin: 04/12/22 15:15 Dose: 3 ml Documented By: MOHAN Labs CBC & Chem 7: 04/12/22 07:20 04/12/22 07:20 Labs: Laboratory Results - last 24 hr 04/10/22 04/11/22 04/11/22 18:32 16:07 20:19 MCV MCH MCHC RDW Plt Count MPV Absolute Nucleated RBC Nucleated RBC % (auto) Anion Gap 17 Estim Creat Clear Calc 12.0 Estimated GFR 11 POC Glucose 134 H Random Glucose 170 H Calcium 7.9 L Phosphorus Magnesium Albumin Blood Type A Positive Antibody Screen NEGATIVE Crossmatch See Detail 04/11/22 04/12/22 04/12/22 20:41 07:07 07:20 MCV MCH MCHC RDW Plt Count MPV Absolute Nucleated RBC Nucleated RBC % (auto) Anion Gap 16 Estim Creat Clear Calc 12.3 Estimated GFR 11 POC Glucose 154 H 120 H Random Glucose 118 H Calcium 8.1 L Phosphorus 3.5 Magnesium 2.1 Albumin 3.3 L Blood Type Antibody Screen Crossmatch 04/12/22 04/12/22 07:20 10:56 MCV 84.2 MCH 28.8 MCHC 34.1 RDW 16.5 H Plt Count 69 L MPV 10.9 Absolute Nucleated RBC 0.000 Nucleated RBC % (auto) 0.0 Anion Gap Estim Creat Clear Calc Estimated GFR POC Glucose 143 H Random Glucose Calcium Phosphorus Magnesium Albumin Blood Type Antibody Screen Crossmatch Assessment and Plan (1) ANDREEA (acute kidney injury): Status: Acute (2) Bladder cancer: Status: Acute (3) Pneumonia: Status: Acute (4) Gross hematuria: Status: Acute Plan 76-year-old male presents unresponsive, hypotensive, hypothermic in the backdrop of active urinary sediment.? More cooperative with Zyprexa however somewhat agitated overnight.? Additional dose of Zyprexa given ?acute hypoxemic respiratory failure,? possible secondary hypoalbuminemia ,possible liver disease /cirrosis ,less likely CHF ( unclear etiology) hypoxia improving echo : ef 55-60% ?chest x-ray-? Atelectasis /effusion, ABG reviewed- pH seems fine., ammonia? Fine. daily weight,i/o, incentive spirometry, chest physiotherapy,? Continue suctioning,? Oxygen support,?oxygen support-keep sats 92 % hold lasix less likely chf- may be fluid overload sec to prbc /fluids ,atlactasis might also contributin cardiology followin toxic metabolic encephalopathy :? Multifactorial(electrolytic abnormalities/poor oral intake/ dementia/zyprexa,andreea on ckd) slightly slowly somewhat improvin ?supportive care. ?CT head negative,mri reviewed by neuro,EEG due to fairly severe diffuse background slowing consistent with a diffuse encephalopathic process. neuro saw the patient-encephalopathy Possibly? related to multifactorial basis with? hypoxia, metabolic abnormalities and baseline dementia ? UTI completed antibiotics -culture unreliable from nephrostomy tube.? ?urine culture noted- received 7 days of antibiotic, discussed with infectious disease- urine culture and chest x-ray: patient does not have any leukocytosis or fever, blood culture negative, off? ceftriaxone. Hypothermia-intermittent ,improvin tsh boderline elevated? ,add t4 boderline low will check with endocrinology for recomendations -follow tsh and free t4 in 1week ?Anemia/thrombocytopenia-multifactorial : poor oral inatke/hematuria also contributin,live dis -stable at this time between 7-8 range -follow daily CBCs Type 2 diabetes: flacutaing fs 130's hold diet due to somlescent ?lispro coorectional scale. ?Dementia with agitated features -somlonescent ,hold Zyprexa -portable chest done - please see above in UTI section. ?possible failure to thrive/hypoalbuminemia:? patient is not eating well from at least 2 weeks. ? Family currently does not wants central line so started PPN ?family does not want tube feeding also seen by speech and swallow -added diet. hx of HHC s/p ablation ,as well as hx of bladder cancer on palltive immunotherpay: supportive care andreea on ckd: multifactorial -ftt/bladder canncer ,hematuria cr trending up-urine creatinine, sodium, total protein and Abdominal ultrasound reviewed with nephro/urology. as per family his basline cr is between 2-3 continue ppn,hold nephrotoxic meds ,iv hydration rifraximine/nadolol on hold due to somnolent d/w Gi -less likely hepatorenal Nephrology following-?? Hepatorenal versus pre renal:willl change fluids to h1cenvdt ,ppn. moniter bmp closely nephro recomended -cr similar to yesterda-possible competent of pre renal, bicarb is around 19:switch to LR . also nephrostomy is drainin ok d/w nephro /urology in detail and further with patient hcp-currently recommended to continue above management, healthcare proxy wants to wait for today and will able to discussed with him in the morning again for further need of nephrostomy right side . acute blood loss anemia sec to hematuria ( in setting of bladder ca),andreea: clearing mostly pinkish urine -percutaneous nephrostomy tube draining clear urine since patient more cooperative urology will follow up if need cbi also given 3 prbc last 2 days -h/h 8.4 /24.6 moniter h/h closely ?above management discussed with patient family in detail length they understand and in agreement with the above , healthcare proxy Mr. Menezes- they understand the patient prognosis is poor, currently continue conservative management, if patient condition further deteriorate please inform the family . Full code Vena dynes boots-due to? Anemia/thrombocytopenia ongoing hospitalization for treatment:multiple issues ,acute hypoxemic respiratory failure multifactorial,FTT, toxic metabolic encephalopathy -as above. Quality Stroke Does the patient have a stroke diagnosis?: No VTE Prior VTE?: No VTE Risk Level:: Medical - moderate - high VTE Device Contraindication: N/A - Device Ordered VTE Drug Contraindication: Treatment Not Indicated
[2022-04-12 15:58] LABS: Glucose, Whole Blood 197 mg/dL (60-115)
[2022-04-12 19:56] LABS: Glucose, Whole Blood 172 mg/dL (60-115)
[2022-04-13] VITALS (9 sets, daily range): BP systolic 105–138; BP diastolic 56–70; PULSE 58–129; RESP 16–20; TEMP 35–36.4; O2SAT 95–100
[2022-04-13] MEDS: Doxycycline Hyclate 100 MG in 0.9 % Sodium Chloride 250 ML 166.67 MG IV ×2 (03:47→16:17)
[2022-04-13] MEDS: Piperacillin Sodium/Tazobactam 2.25 GM in 0.9 % Sodium Chloride 50 ML IV ×4 (03:47→20:37)
[2022-04-13] MEDS: Sodium Bicarbonate 8.4% 150 MEQ in Dextrose 5 % 850 ML 80 MEQ IV (05:48)
[2022-04-13 07:37] LABS: Glucose, Whole Blood 156 mg/dL (60-115)
[2022-04-13 08:40] LABS: Albumin Level 2.7 g/dL (3.5-5.0); Anion Gap 13 (12-20); Blood Urea Nitrogen 82 mg/dL (9-16); Calcium 7.9 mg/dL (8.4-10.2); Carbon Dioxide 27 mmol/L (22-29); Chloride 108 mmol/L (96-108); Creatinine Clr Calc Pharmacy 13.4; Estimated Glomerular Filt Rate 12; Glucose Random 155 mg/dL (60-115); Magnesium 1.8 mg/dL (1.6-2.6); Phosphorus 2.7 mg/dL (2.7-4.5); Potassium 3.5 mmol/L (3.3-5.1); Sodium 144 mmol/L (135-145)
[2022-04-13] MEDS: 0.9 % Sodium Chloride Flush 3 ML SYRINGE IVFLUSH (09:00)
[2022-04-13] MEDS: Lactated Ringers 1,000 ML 80 ML IVCONT (10:05)
[2022-04-13 10:43] LABS: Mean Corpuscular Hemoglobin 28.4 pg (27.0-33.0); Mean Corpuscular Volume 83.4 fL (80.0-98.0); Mean Platelet Volume 11.3 fL (9.4-12.4); Red Blood Count 2.29 X10*6/uL (4.60-5.80); Red Cell Distribution Width 16.7 % (11.0-16.0); White Blood Count 5.9 X10*3/uL (4.8-10.8)
[2022-04-13 10:45] LABS: Platelet Count 63 X10*3/uL (160-400)
[2022-04-13 10:57] LABS: Hemoglobin 6.5 g/dl (14.0-18.0)
[2022-04-13 10:57] LABS: Glucose, Whole Blood 167 mg/dL (60-115)
[2022-04-13 10:58] LABS: Hematocrit 19.1 % (42.0-52.0)
--- NOTE | 2022-04-13 11:05 | P.CDIC_ITS ---
CDI Concurrent Query Documentation Clarification: PHYSICIAN'S DOCUMENTATION REQUEST Date of Query: 04/13/22 1105 Patient Name: Claudio Garcia Admit Date: 03/31/22 Dear Doctor, A review of the medical record indicates additional documentation may be needed. Please review below and update the documentation accordingly. Clinical Indicators: Documentation indicates a diagnosis of dementia. Is there further specificity that correlates with the findings below: Risk Factors/Clinical Indicators/Treatments Per provider note on 04/12/22: Dementia with agitated features -somlonescent ,hold Zyprexa Per RN shift assessments: Patient lethargic, confused, & vague Other indicators: Patient with extensive PMH and poor prognosis per MD Based on the above, could you clarify in the Progress Notes which, if any of the following, is the most likely etiology of the confusion/altered mental status? * Vascular dementia with agitation (please indicate severity - mild, moderate, severe, etc.) * Other etiology (please indicate type of dementia, such as Alzheimer's, senile, vascular, Lewy body, etc.) * Unable to determine Use of terms such as suspected, likely, concern for, or probable (associated with a specific diagnosis that is being evaluated, monitored, or treated as if it exists) are acceptable and can be coded in the inpatient setting, when docume nted at the time of discharge. Thank you, Jill Peñaloza MS, RN, CCRN Extension: [phone] Please use your independent medical judgment in providing your response. THIS QUERY IS PART OF THE PERMANENT MEDICAL RECORD Provider Response: Other Other Diagnosis: dementia unspecified
--- NOTE | 2022-04-13 11:08 | PM.PNNEP ---
Subjective Subjective Date of Service: 04/14/22 Interval history: Events noted Cr is down UO is better Physical Exam Vital Signs: Vital Signs: Last Vital Signs Temp 96.7 F L 04/13/22 07:17 Pulse 129 H 04/13/22 07:17 Resp 18 04/13/22 07:17 BP 118/56 L 04/13/22 07:17 Pulse Ox 95 04/13/22 07:17 O2 Del Method 04/13/22 07:17 O2 Flow Rate 2 04/13/22 07:17 Oxygen Flow Rate 4 03/31/22 10:53 BMI result Body Mass Index 29.5 Const: General: lethargic Orientation/consciousness: lethargic Neck: Neck: Yes supple Resp: Effort & Inspection: no respiratory distress Cardio: Heart sounds: no murmurs and no rubs GI: Palpation (GI): Soft to palpation Extrem: General: No clubbing and No cyanosis Objective Data Labs CBC & Chem 7: 04/14/22 06:49 04/14/22 06:49 Labs: Laboratory Results - last 24 hr 04/10/22 04/12/22 04/12/22 18:32 15:38 19:50 WBC RBC Hgb Hct MCV MCH MCHC RDW Plt Count MPV Absolute Nucleated RBC Nucleated RBC % (auto) Sodium Potassium Chloride Carbon Dioxide Anion Gap BUN Creatinine Estim Creat Clear Calc Estimated GFR POC Glucose 197 H 172 H Random Glucose Calcium Phosphorus Magnesium Albumin Crossmatch See Detail 04/13/22 04/13/22 04/13/22 07:23 07:35 10:03 WBC 5.9 RBC 2.29 L D Hgb 6.5 L* D Hct 19.1 L* D MCV 83.4 MCH 28.4 MCHC 34.0 RDW 16.7 H Plt Count 63 L MPV 11.3 Absolute Nucleated RBC 0.000 Nucleated RBC % (auto) 0.0 Sodium 144 Potassium 3.5 Chloride 108 Carbon Dioxide 27 Anion Gap 13 BUN 82 H Creatinine 4.67 H* Estim Creat Clear Calc 13.4 Estimated GFR 12 POC Glucose 156 H Random Glucose 155 H Calcium 7.9 L Phosphorus 2.7 Magnesium 1.8 Albumin 2.7 L Crossmatch 04/13/22 10:50 WBC RBC Hgb Hct MCV MCH MCHC RDW Plt Count MPV Absolute Nucleated RBC Nucleated RBC % (auto) Sodium Potassium Chloride Carbon Dioxide Anion Gap BUN Creatinine Estim Creat Clear Calc Estimated GFR POC Glucose 167 H Random Glucose Calcium Phosphorus Magnesium Albumin Crossmatch Microbiology Microbiology Results: Microbiology 03/31/22 15:07 Blood - Venous Blood Culture - Final No growth after 5 days. 03/31/22 15:07 Blood - Venous Blood Culture - Final No growth after 5 days. 03/31/22 00:00 Urine Other - Nephrostomy Urine Culture - Final Staphylococcus cohnii ssp urea 03/31/22 15:02 Blood - Venous Blood Culture - Final 03/31/22 15:02 Blood - Venous Blood Culture - Final Procedures Date of Service Date of Service: 04/13/22 Assessment & Plan Assessment and plan (1) ANDREEA (acute kidney injury): Status: Acute Assessment and Plan: 1. Acute kidney injury superimposed on chronic kidney disease. ?The chronic kidney disease, most likely due to diabetic nephropathy, although he has not undergone a biopsy.? The superimposed acute kidney injury is most likely due to obstructive uropathy based on the recent imaging studies.? There could be a component of volume depletion. 2. Severe anemia, which is multifactorial. 3. Hyperchloremic metabolic acidosis in the setting of renal failure. 4. Bladder carcinoma with obstructive uropathy, status post left PCN. 5. Cirrhosis of the liver. 6. History of hypertension.? He has had multiple episodes of hypotension. ? RECOMMENDATIONS:? Urology f/u Watch potassium Since the blood pressure is low, I will continue to hold the amlodipine for now. ?Transfuse as needed to keep HB > 7.0 , he may benefit from erythropoietin replacement therapy. ?IVF - agree with LR Continue to avoid nephrotoxic agents including NSAIDs.? 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 (2) Failure to thrive in adult: Status: Acute (3) Gross hematuria: Status: Acute (4) Bladder cancer: Status: Acute Time Spent With Patient Time: Total time spent is greater than 50% in coordination of care (as documented) at patient's floor/unit and/or counseling patient: Progress Note: Quality Stroke Does the patient have a stroke diagnosis?: No
--- NOTE | 2022-04-13 11:22 | P.CDIC_ITS ---
CDI Concurrent Query Documentation Clarification: PHYSICIAN'S DOCUMENTATION REQUEST Date of Query: 04/13/22 1122 Patient Name: Claudio Garcia Admit Date: 03/31/22 Dear Doctor, A review of the medical record indicates additional documentation may be needed. Please review below and update the documentation accordingly. Clinical Indicators: Documentation indicates a diagnosis of chronic kidney disease. Is there further specificity that correlates with the findings below: Risk Factors/Clinical Indicators/Treatments Per provider progress notes: stan on ckd: multifactorial -ftt/bladder canncer , hematuria cr trending up-urine creatinine, sodium, total protein and Abdominal ultrasound reviewed with nephro/urology.as per family his basline cr is between 2-3 Per nephrology progress notes: Acute kidney injury superimposed on chronic kidney disease. The chronic kidney disease, most likely due to diabetic nephropathy Labs: BUN on 04/13: 82 Creatinine on 12: 4.67 GFR on : 12 Please clarify which of the following accurately represents the patient's renal status: * CKD, please provide stage - see criteria * Other (please specify) * Unable to determine Stages of Chronic Kidney Disease* Level Description GFR G1 Normal or High > 90 G2 Mildly decreased 60 ? 89 G3a Mildly to moderately decreased 45 ? 59 G3b Moderately to severely decreased 30 - 44 G4 Severely decreased 15 ? 29 G5 Kidney failure < 15 *Source: Kidney Disease: Improving Global Outcomes (KDIGO) 2012 Use of terms such as suspected, likely, concern for, or probable (associated with a specific diagnosis that is being evaluated, monitored, or treated as if it exists) are acceptable and can be coded in the inpatient setting, when documented at the time of discharge. Thank you, Jill Peñaloza, MS, RN, CCRN Extension: [phone] Please use your independent medical judgment in providing your response. THIS QUERY IS PART OF THE PERMANENT MEDICAL RECORD Provider Response: Other Other Diagnosis: ckd -unclear stage
--- NOTE | 2022-04-13 11:32 | P.CDIC_ITS ---
CDI Concurrent Query Documentation Clarification: PHYSICIAN'S DOCUMENTATION REQUEST Date of Query: 04/13/22 1135 Patient Name: Claudio Garcia Admit Date: 03/31/22 Dear Doctor, A review of the medical record indicates additional documentation may be needed. Please review below and update the documentation accordingly. Clinical Indicators: Is there a diagnosis that correlates with the findings below: Risk Factors/Clinical Indicators/Treatments Per provider progress notes: possible failure to thrive/hypoalbuminemia:? patient is not eating well from at least 2 weeks. Family currently does not wants central line so started PPN family does not want tube feeding also seen by speech and swallow -added diet Per nutrition consult on 04/06: PT LETHARGIC WITH CHANGE IN CONDITION, CURRENTLY NPO AND EXPECTED TO BE >3DAYS WILL NEED TPN FOR NUTRITION SUPPORT AT THIS TIME. PT WAS NPO FROM 03/31-04/03 -DIET ADVANCED TO REGULAR BUT PO REMAINE D POOR BMI: 29.5 Height: 5ft 6in Weight: 83.1kg ASPEN Criteria* Acute Illness Chronic Illness Clinical Characteristic Non-Severe (2 or more criteria present) Severe (2 or more criteria present) Non-Severe (2 or more criteria present) Severe (2 or more criteria present) Energy Intake <75% for >7 days <=50% for >=5 days <75% for >=1 month <=75% for >=1 month Weight Loss 1 week 1 ? 2% >2% N/A N/A 1 month 5% >5% 5% >5% 3 months 7.5 % >7.5% 7.5% >7.5% 6 months N/A N/A 10% >10% 1 year N/A N/A 20% >20% Body Fat Mild Moderate Mild Severe Muscle Mass Mild Moderate Mild Severe Fluid Accumulation Mild Moderate to Severe Mild Severe Reduced Research Program Manager Strength N/A Measurably Reduced N/A Measurably Reduced *ACP Hospitalist, 2017 If possible, please provide an associated diagnosis related to the abnormal BMI, such as: Malnutrition: * Mild * Moderate * Severe BMI: * Weight loss * Cachexia * Anorexia Or: * BMI is not significant * Other (please specify) * Unable to determine Use of terms such as suspected, likely, concern for, or probable (associated with a specific diagnosis that is being evaluated, monitored, or treated as if it exists) are acceptable and can be coded in the inpatient setting, when documented at the time of discharge. Thank you, Jill Peñaloza MS, RN, CCRN Extension: [phone] Please use your independent medical judgment in providing your response. THIS QUERY IS PART OF THE PERMANENT MEDICAL RECORD Provider Response: Other Other Diagnosis: mild malnutrition
--- NOTE | 2022-04-13 11:40 | MHC.CLN ---
F/U RECEIVED PPN D10AA4.25 YESTERDAY AT 30ML/HR PROVIDED 367KCALS, 31G PROTEIN REVIEWED LABS DIET RX: PUREED DIET WITH NT LIQ-APPROPRIATE PER SOCIAL SERVICE DIRECTOR NO PO INTAKE RECORDED DISCUSSED WITH PHARMACY PPN TO CONTINUE; RECOMMEND CONTINUING FORMULA D10AA4.25 AT 30ML/HR TO PROVIDE 367KCALS, 31G PROTEIN (.4G/KG) RECOMMEND ADDING 12ML OF 20% LIPIDS TO PROVIDE 943 TOTAL KCALS (50% OF ESTIMATED KCALS NEEDS) REPLETE LYTES NEEDED; MONITOR RENAL INDICES CLOSELY STRICT PO INTAKE NOTED FAMILY DOES NOT WANT CENTRAL LINE OR FEEDING TUBE FOLLOWING WITH TEAM
--- NOTE | 2022-04-13 13:18 | HO.PM.IMPN ---
Subjective Subjective Date of Service: 04/13/22 Interval History: more awake ,eating better Intermittent hypothermia,anemia Review of Systems no fever? overnight, has villareal nephrostomy tube(400ml) Physical Exam Vital Signs: Vital Signs: Last Vital Signs Temp 96.3 F L 04/13/22 11:18 Pulse 65 04/13/22 11:18 Resp 20 04/13/22 11:18 BP 106/65 04/13/22 11:18 Pulse Ox 99 04/13/22 11:18 O2 Del Method 04/13/22 11:18 O2 Flow Rate 2 04/13/22 11:18 Oxygen Flow Rate 4 03/31/22 10:53 BMI result Body Mass Index 29.5 Appearance: more awake than before . cvs: rrr, [id number] . res: diminshed at bases, no rales or wheezin abd: no rebound or guarding ,nt, bs present. ext pulses present , no cyanosis , no edema . neuro:awake ,moving hands and wiggle legs. Objective Data Active Medications Acetaminophen (Acetaminophen 325 Mg Tablet) 650 mg PO Q6H PRN PRN Reason: Pain, Mild (Pain Scale 1-3) Last Admin: 04/09/22 21:49 Dose: 650 mg Documented By: JOVANNI Albuterol/Ipratropium (Albuterol/Iprat 2.5/0.5mg 3 Ml Ampul.Neb) 3 ml INHALE RQ4H PRN PRN Reason: sob Amlodipine Besylate (Amlodipine Besylate 10 Mg Tablet) 10 mg PO DAILY [facility], [facility]; Protocol Last Admin: 04/06/22 09:04 Dose: Not Given Documented By: BIANCA Non-Admin Reason: See Note Aspirin (Aspirin 81 Mg Tab.Chew) 81 mg PO DAILY [facility] Last Admin: 04/06/22 09:04 Dose: Not Given Documented By: BIANCA Non-Admin Reason: See Note Atorvastatin Calcium (Atorvastatin Calcium 40 Mg Tablet) 40 mg PO DAILY [facility] Last Admin: 04/06/22 09:04 Dose: Not Given Documented By: BIANCA Non-Admin Reason: See Note Dextrose (Dextrose 50 % 25 Gm/50 Ml Syringe) 25 gm IVPUSH Q15M PRN; Protocol PRN Reason: per Hypoglycemia Standing Ord. Ferrous Sulfate (Ferrous Sulfate 324 Mg Tablet.) 324 mg PO DAILY [facility] Last Admin: 04/10/22 09:41 Dose: 324 mg Documented By: HAM Glucose (Glucose Gel 15 Gm Gel..Gram.) 15 gm PO Q15M PRN; Protocol PRN Reason: per Hypoglycemia Standing Ord. Thiamine HCl 100 mg/ Sodium (Chloride) 101 mls @ 208 mls/hr IV Q8H [facility] Last Admin: 04/13/22 08:47 Dose: Not Given Documented By: KEN Non-Admin Reason: Med Not Available Doxycycline Hyclate 100 mg/ (Sodium Chloride) 250 mls @ 166.67 mls/hr IV Q12H [facility] Last Infusion: 04/13/22 05:24 Dose: 0 mls/hr Documented By: ANEL Piperacillin Sod/Tazobactam (Sod 2.25 gm/ Sodium Chloride) 50 mls @ 100 mls/hr IV Q6H [facility] Last Infusion: 04/13/22 10:05 Dose: 0 mls/hr Documented By: KEN Magnesium Sulfate 5 meq/Calcium Gluconate 4.65 meq/Sodium Acetate 30 meq/Potassium Acetate 20 meq/Multivitamins 14 ml/ Trace Metals 1.4 ml/ Amino Acids/Electrolytes/Dextrose 720 mls @ 30 mls/hr IVCONT DAILY@1800 [facility] Stop: 04/13/22 17:59 Last Infusion: 04/13/22 11:17 Dose: 0 mls/hr Documented By: KEN Lactated Ringer's (Lr) 1,000 mls @ 80 mls/hr IVCONT .[id number] [facility] Last Infusion: 04/13/22 11:17 Dose: 0 mls/hr Documented By: KEN Magnesium Sulfate 5 meq/Calcium Gluconate 4.65 meq/Sodium Acetate 15 meq/ Sodium Phosphate 10 mmol/ Potassium Acetate 20 meq/ Multivitamins 14 ml/ Trace Metals 1.4 ml/Amino Acids/Electrolytes/Dextrose 720 mls @ 30 mls/hr IVCONT DAILY@1800 [facility] Stop: 04/14/22 17:59 Fat Emulsion Intravenous (Intralipid) 144 mls @ 12 mls/hr IVCONT BID@0600,1800 [facility] Stop: 04/14/22 17:59 Insulin Human Lispro (Insulin Lispro 100 Unit/Ml 3 Ml Vial) 0 unit SUBCUT QIDACHS [facility]; Protocol Last Admin: 04/13/22 11:35 Dose: Not Given Documented By: KEN Non-Admin Reason: No Insulin Coverage Magnesium Oxide (Magnesium Oxide 400 Mg Tablet) 400 mg PO BID [facility] Last Admin: 04/11/22 09:00 Dose: Not Given Documented By: BECKY Non-Admin Reason: Hold per Melatonin (Melatonin 3 Mg Tablet) 6 mg PO BEDTIME PRN PRN Reason: insomnia Nadolol (Nadolol 20 Mg Tablet) 20 mg PO DAILY [facility]; Protocol Last Admin: 04/06/22 09:05 Dose: Not Given Documented By: BIANCA Non-Admin Reason: See Note Olanzapine (Olanzapine 5 Mg Tablet) 5 mg PO BEDTIME [facility] Last Admin: 04/10/22 22:10 Dose: 5 mg Documented By: JAXSON Ondansetron HCl (Ondansetron Hcl 4 Mg/2 Ml Vial) 4 mg IVPUSH Q6H PRN PRN Reason: Nausea Last Admin: 04/12/22 15:07 Dose: 4 mg Documented By: MOHAN Rifaximin (Rifaximin 550 Mg Tablet) 550 mg PO BID [facility] Last Admin: 04/06/22 09:05 Dose: Not Given Documented By: BIANCA Non-Admin Reason: See Note Sodium Bicarbonate (Sodium Bicarbonate 650 Mg Tablet) 650 mg PO BID [facility] Last Admin: 04/11/22 09:00 Dose: Not Given Documented By: BECKY Non-Admin Reason: hold per Sodium Chloride (0.9 % Sodium Chloride Flush 3 Ml Syringe) 3 ml IVFLUSH QSHIFT [facility] Last Admin: 04/13/22 09:00 Dose: 3 ml Documented By: KEN Labs CBC & Chem 7: 04/13/22 13:12 04/13/22 07:35 Labs: Laboratory Results - last 24 hr 04/10/22 04/12/22 04/12/22 18:32 15:38 19:50 MCV MCH MCHC RDW Plt Count MPV Absolute Nucleated RBC Nucleated RBC % (auto) Anion Gap Estim Creat Clear Calc Estimated GFR POC Glucose 197 H 172 H Random Glucose Calcium Phosphorus Magnesium Albumin Blood Type A Positive Antibody Screen NEGATIVE Crossmatch See Detail 04/13/22 04/13/22 04/13/22 07:23 07:35 10:03 MCV 83.4 MCH 28.4 MCHC 34.0 RDW 16.7 H Plt Count 63 L MPV 11.3 Absolute Nucleated RBC 0.000 Nucleated RBC % (auto) 0.0 Anion Gap 13 Estim Creat Clear Calc 13.4 Estimated GFR 12 POC Glucose 156 H Random Glucose 155 H Calcium 7.9 L Phosphorus 2.7 Magnesium 1.8 Albumin 2.7 L Blood Type Antibody Screen Crossmatch 04/13/22 10:50 MCV MCH MCHC RDW Plt Count MPV Absolute Nucleated RBC Nucleated RBC % (auto) Anion Gap Estim Creat Clear Calc Estimated GFR POC Glucose 167 H Random Glucose Calcium Phosphorus Magnesium Albumin Blood Type Antibody Screen Crossmatch Assessment and Plan (1) ANDREEA (acute kidney injury): Status: Acute (2) Bladder cancer: Status: Acute (3) Pneumonia: Status: Acute (4) Gross hematuria: Status: Acute Plan 76-year-old male presents unresponsive, hypotensive, hypothermic in the backdrop of active urinary sediment.? More cooperative with Zyprexa however somewhat agitated overnight.? Additional dose of Zyprexa given ?acute hypoxemic respiratory failure,? possible secondary hypoalbuminemia ,possible liver disease /cirrosis ,less likely CHF ( unclear etiology) hypoxia improving echo : ef 55-60% ?chest x-ray-? Atelectasis /effusion, ABG reviewed- pH seems fine., ammonia? Fine. daily weight,i/o, incentive spirometry, chest physiotherapy,? Continue suctioning,? Oxygen support,?oxygen support-keep sats 92 % Received Lasix for 1 day but seems like less likely CHF but more likely due to atelectasis/ hypoalbuminemia Hypoxemia improved significantly, now is awake and also eating somewhat. toxic metabolic encephalopathy :? Multifactorial(electrolytic abnormalities/poor oral intake/ dementia/zyprexa,andreea on ckd) slightly slowly somewhat improvin ?CT head negative,mri reviewed by neuro,EEG due to fairly severe diffuse background slowing consistent with a diffuse encephalopathic process. neuro saw the patient-encephalopathy Possibly? related to multifactorial basis with? hypoxia, metabolic abnormalities and baseline dementia supportive care. ? UTI completed antibiotics -culture unreliable from nephrostomy tube.? ?urine culture noted- received 7 days of antibiotic, discussed with infectious disease- urine culture and chest x-ray: patient does not have any leukocytosis or fever, blood culture negative, off? ceftriaxone. Hypothermia-intermittent ,improvin tsh boderline elevated? ,add t4 boderline low will check with endocrinology for recomendations -follow tsh and free t4 in 1week ?Anemia/thrombocytopenia-multifactorial : poor oral inatke/hematuria also contributin,live dis -stable at this time between 7-8 range -follow daily CBCs Type 2 diabetes: flacutaing fs 160's dm diet ?lispro coorectional scale. ?Dementia unspecified with agitated features gets somlonenet ,hold Zyprexa ?possible failure to thrive/hypoalbuminemia:? patient is not eating well from at least 2 weeks. ? Family currently does not wants central line so started PPN ?family does not want tube feeding also seen by speech and swallow -added diet. diet can be tailered as per menatl status. hx of HHC s/p ablation ,as well as hx of bladder cancer on palltive immunotherpay: supportive care. andreea on ckd(stage unclear ,per family cr is between 2-3): multifactorial -ftt/bladder canncer ,hematuria cr trending up-urine creatinine, sodium, total protein and Abdominal ultrasound reviewed with nephro/urology. as per family his basline cr is between 2-3 continue ppn,hold nephrotoxic meds ,iv hydration rifraximine/nadolol can start once gets more awake and able. d/w Gi -less likely hepatorenal Nephrology following- andreea seems multifactorial(please see nephro note prerenal vs obstructive ) -received bicarb drip, bicarb seems to be improving, switched to nectar drinker now. also nephrostomy is drainin ok' has cbi due to hematuria d/w nephro /urology in detail and further with patient hcp- cr improvin, he not decided yet about nephrostomy ( need of right side) acute blood loss anemia sec to hematuria ( in setting of bladder ca),andreea: clearing mostly pinkish urine -percutaneous nephrostomy tube draining clear urine since patient more cooperative urology will follow up if need cbi also given 3 prbc last 3 days -h/h6.6 -added 1 prbc today moniter h/h closely ?above management discussed with patient family in detail length they understand and in agreement with the above , healthcare proxy Mr. Menezes- they understand the patient prognosis is poor, currently continue conservative management,Mr menezes -does not wnat tube feeding or HD, if patient condition further deteriorate please inform the family . Full code Vena dynes boots-due to? Anemia/thrombocytopenia ongoing hospitalization for treatment:multiple issues ,acute hypoxemic respiratory failure multifactorial,FTT, toxic metabolic encephalopathy -as above. Quality Stroke Does the patient have a stroke diagnosis?: No VTE Prior VTE?: No VTE Risk Level:: Medical - moderate - high VTE Device Contraindication: N/A - Device Ordered VTE Drug Contraindication: Treatment Not Indicated
--- NOTE | 2022-04-13 13:27 | MHC.SL.SWA ---
Speech Pathologist Impression: Risk of Aspiration Due to: Medically Fragile Poor PO Intake Reduced Cognition Weak Cough Dysphasia Diet Status: Recommend continue diet of PUREE (NDD1) with NECTAR THICK liquids by tsp only, with pills CRUSHED in PUREE. Patient will need 1-1 feeding with close monitor for swallow before presenting any additional food/liquid, strict monitor for aspiration signs (discontinue if patient is coughing on food/liquid, or if patient sounds wet/gurgly during meal). Do not attempt if patient is lethargic or non-compliant. Ice chips for comfort. Liquid Consistency and Strategies for Safe Swallow: Liquid Intake Recommendation: [place]wagen Thick Liquid Intake Strategies: Small Sips Liquids by Teaspoon Only Solid Food Consistency: Dietary Recommendations: Pureed (NDD1) Additional Modifications to Solid Foods: Patient will need 1-1 feeding with close monitor for swallow before presenting any additional food/liquid, strict monitor for aspiration signs (discontinue if patient is coughing on food/liquid, or if patient sounds wet/gurgly during meal). Do not attempt if patient is lethargic or non-compliant. Oral Medication Intake: Crushed with Puree Please contact the pharmacy regarding appropriate crushable or liquid drug formulations that are available whenever modified delivery is recommended. Compensatory Strategies and Precautions to be Taken for Safe Swallow: Sitting Upright (90 deg) No Straw Liquids from Spoon Small Bites and Sips Alternate Liquids/Solids Rate of Ingestion Change Oral Check Supervision While Eating and Drinking for Safe Swallow: Total Assistance (1:1) Foods to Avoid: Sticky, congealed purees, or very thin consistencies (e.g. pureed soups). Add sauces/gravies and blend well. Swallowing Recommended Treatments: Compens. Strategy Educat. Recommendation for Speech: Further Testing Needed Outpatient Speech Therapy Inpatient Speech Therapy Comment: Pt seen briefly late morning, as patient refused most po trials offered today. Patient is verbalizing more, communicating in [place] and [place]. Patient accepted a few trials of water by tsp. On first presentation, patient presented with a timely oral phase and timely swallow. On subsequent presentations, patient noted to hold water in mouth before propelling, producing a mildly delayed swallow with mildly reduced laryngeal elevation. No aspiration noted, but due to erratic pattern, continue to recommend current diet of PUREE (NDD1) with NECTAR THICK liquids by TSP only, with pills crushed in puree. Frequency/Duration: Date Range for Service Req: Timeline to reassess: Retort Kiln Burner Clinican/Clinical Fellow: No Supervisory Statement: I have reviewed and agree with the student/clinical fellow's documentation: N/A Speech Language Pathologist: Samantha Shirley M.A., CCC-BEAD WIRE TAPER
[2022-04-13] MEDS: Thiamine HCL 100 MG in 0.9 % Sodium Chloride 100 ML 208 MG IV ×2 (13:29→22:30)
[2022-04-13 13:44] LABS: Hematocrit 19.1 % (42.0-52.0); Hemoglobin 6.6 g/dl (14.0-18.0)
[2022-04-13] MEDS: Acetaminophen 325 MG TABLET 650 MG PO (13:47)
[2022-04-13 15:34] LABS: Glucose, Whole Blood 157 mg/dL (60-115)
[2022-04-13] MEDS: Fat Emulsions 20% 250 ML 12 ML IVCONT (18:22)
[2022-04-13 19:28] LABS: Hematocrit 22.3 % (42.0-52.0); Hemoglobin 7.8 g/dl (14.0-18.0)
[2022-04-13 20:53] LABS: Glucose, Whole Blood 185 mg/dL (60-115)
[2022-04-14] MEDS: 0.9 % Sodium Chloride Flush 3 ML SYRINGE IVFLUSH ×2 (01:12→09:05)
[2022-04-14] MEDS: Lactated Ringers 1,000 ML 80 ML IVCONT ×2 (01:12→13:55)
[2022-04-14] MEDS: Fat Emulsions 20% 250 ML 12 ML IVCONT ×2 (01:20→19:52)
[2022-04-14] MEDS: Piperacillin Sodium/Tazobactam 2.25 GM in 0.9 % Sodium Chloride 50 ML IV ×4 (02:04→21:49)
[2022-04-14] MEDS: Doxycycline Hyclate 100 MG in 0.9 % Sodium Chloride 250 ML 166.67 MG IV ×2 (02:04→15:54)
[2022-04-14] MEDS: Thiamine HCL 100 MG in 0.9 % Sodium Chloride 100 ML 208 MG IV ×3 (03:50→21:48)
[2022-04-14 04:00] VITALS: BP 128/71; PULSE 56; RESP 17; TEMP 36.7; O2SAT 98
[2022-04-14 07:12] LABS: Glucose, Whole Blood 127 mg/dL (60-115)
[2022-04-14 07:13] VITALS: BP 143/68; PULSE 76; RESP 20; TEMP 34.3; O2SAT 96
[2022-04-14 07:22] LABS: Hematocrit 23.7 % (42.0-52.0); Mean Corpuscular HGB Conc 33.8 g/dl (31.0-36.0); Mean Corpuscular Hemoglobin 28.2 pg (27.0-33.0); Mean Corpuscular Volume 83.5 fL (80.0-98.0); Mean Platelet Volume 10.5 fL (9.4-12.4); Red Blood Count 2.84 X10*6/uL (4.60-5.80); Red Cell Distribution Width 16.5 % (11.0-16.0); White Blood Count 5.6 X10*3/uL (4.8-10.8)
[2022-04-14 07:24] LABS: Platelet Count 87 X10*3/uL (160-400)
[2022-04-14 07:39] LABS: Albumin Level 2.9 g/dL (3.5-5.0); Anion Gap 14 (12-20); Blood Urea Nitrogen 76 mg/dL (9-16); Calcium 8.1 mg/dL (8.4-10.2); Carbon Dioxide 24 mmol/L (22-29); Chloride 109 mmol/L (96-108); Creatinine Clr Calc Pharmacy 14.2; Estimated Glomerular Filt Rate 13; Glucose Random 136 mg/dL (60-115); Magnesium 1.8 mg/dL (1.6-2.6); Phosphorus 3.3 mg/dL (2.7-4.5); Potassium 3.6 mmol/L (3.3-5.1); Sodium 143 mmol/L (135-145)
--- NOTE | 2022-04-14 09:42 | MHC.CM.PN ---
DP LTC via BLS. Patient is ready for discharge. His core temp 93. Pt has been placed on a bear hugger. The bed search continues. He is being followed by [facility] and [facility].
--- NOTE | 2022-04-14 10:08 | MHC.CLN ---
F/U REVIEWED LABS 75% PO X 1 MEAL DIET RX: PUREED DIET WITH NT LIQ-APPROPRIATE PER RESILIENT TILE INSTALLER PT RECEIVED D10AA4.25 AT 30ML/HR WITH 12 ML OF 20% LIPIDS PROVIDES 943 TOTAL KCALS (50% OF ESTIMATED KCALS NEEDS), 31G PROTEIN (.4G/KG) DISCUSSED WITH PHARMACY REPLETE LYTES NEEDED; MONITOR RENAL INDICES CLOSELY CONTINUE CURRENT PPN FORMULA STRICT PO INTAKE NOTED FAMILY DOES NOT WANT CENTRAL LINE OR FEEDING TUBE FOLLOWING WITH TEAM
[2022-04-14 10:40] VITALS: BP 156/83; PULSE 68; RESP 18; TEMP 35.1; O2SAT 96
--- NOTE | 2022-04-14 11:01 | PM.PNNEP ---
Subjective Subjective Date of Service: 04/15/22 Interval history: more awake ,eating better Intermittent hypothermia,anemia Physical Exam Vital Signs: Vital Signs: Last Vital Signs Temp 95.2 F L 04/14/22 10:40 Pulse 68 04/14/22 10:40 Resp 18 04/14/22 10:40 BP 156/83 H 04/14/22 10:40 Pulse Ox 96 04/14/22 10:40 O2 Del Method 04/14/22 10:40 O2 Flow Rate 2 04/14/22 10:40 Oxygen Flow Rate 4 03/31/22 10:53 BMI result Body Mass Index 29.5 Const: General: lethargic Orientation/consciousness: lethargic Neck: Neck: Yes supple Resp: Effort & Inspection: no respiratory distress Cardio: Heart sounds: no murmurs and no rubs GI: Palpation (GI): Soft to palpation Extrem: General: No clubbing and No cyanosis Objective Data Labs CBC & Chem 7: 04/15/22 07:56 04/15/22 06:53 Labs: Laboratory Results - last 24 hr 04/10/22 04/13/22 04/13/22 18:32 13:12 15:25 WBC RBC Hgb 6.6 L* Hct 19.1 L* MCV MCH MCHC RDW Plt Count MPV Absolute Nucleated RBC Nucleated RBC % (auto) Sodium Potassium Chloride Carbon Dioxide Anion Gap BUN Creatinine Estim Creat Clear Calc Estimated GFR POC Glucose 157 H Random Glucose Calcium Phosphorus Magnesium Albumin Blood Type A Positive Antibody Screen NEGATIVE Crossmatch See Detail 04/13/22 04/13/22 04/14/22 19:17 19:50 06:49 WBC RBC Hgb 7.8 L Hct 22.3 L MCV MCH MCHC RDW Plt Count MPV Absolute Nucleated RBC Nucleated RBC % (auto) Sodium 143 Potassium 3.6 Chloride 109 H Carbon Dioxide 24 Anion Gap 14 BUN 76 H Creatinine 4.38 H* Estim Creat Clear Calc 14.2 Estimated GFR 13 POC Glucose 185 H Random Glucose 136 H Calcium 8.1 L Phosphorus 3.3 Magnesium 1.8 Albumin 2.9 L Blood Type Antibody Screen Crossmatch 04/14/22 04/14/22 06:49 07:09 WBC 5.6 RBC 2.84 L D Hgb 8.0 L Hct 23.7 L MCV 83.5 MCH 28.2 MCHC 33.8 RDW 16.5 H Plt Count 87 L D MPV 10.5 Absolute Nucleated RBC 0.000 Nucleated RBC % (auto) 0.0 Sodium Potassium Chloride Carbon Dioxide Anion Gap BUN Creatinine Estim Creat Clear Calc Estimated GFR POC Glucose 127 H Random Glucose Calcium Phosphorus Magnesium Albumin Blood Type Antibody Screen Crossmatch Microbiology Microbiology Results: Microbiology 03/31/22 15:07 Blood - Venous Blood Culture - Final No growth after 5 days. 03/31/22 15:07 Blood - Venous Blood Culture - Final No growth after 5 days. 03/31/22 00:00 Urine Other - Nephrostomy Urine Culture - Final Staphylococcus cohnii ssp urea 03/31/22 15:02 Blood - Venous Blood Culture - Final 03/31/22 15:02 Blood - Venous Blood Culture - Final Procedures Date of Service Date of Service: 04/14/22 Assessment & Plan Assessment and plan (1) ANDREEA (acute kidney injury): Status: Acute Assessment and Plan: 1. Acute kidney injury superimposed on chronic kidney disease. ?The chronic kidney disease, most likely due to diabetic nephropathy, although he has not undergone a biopsy.? The superimposed acute kidney injury is most likely due to obstructive uropathy based on the recent imaging studies.? There could be a component of volume depletion. 2. Severe anemia, which is multifactorial. 3. Hyperchloremic metabolic acidosis in the setting of renal failure. 4. Bladder carcinoma with obstructive uropathy, status post left PCN. 5. Cirrhosis of the liver. 6. History of hypertension.? He has had multiple episodes of hypotension. ? RECOMMENDATIONS:? Urology f/u Watch potassium Since the blood pressure is low, I will continue to hold the amlodipine for now. ?Transfuse as needed to keep HB > 7.0 , he may benefit from erythropoietin replacement therapy. ?IVF - agree with LR Continue to avoid nephrotoxic agents including NSAIDs.? U sodium high - Non oliguric -d/c Octreotide D/w Family(nephew) - NO SENIOR ACCOUNTING SPECIALIST if renal func worsens d/w Medical team ? (2) Failure to thrive in adult: Status: Acute (3) Gross hematuria: Status: Acute (4) Bladder cancer: Status: Acute Time Spent With Patient Time: Total time spent is greater than 50% in coordination of care (as documented) at patient's floor/unit and/or counseling patient: Progress Note: Quality Stroke Does the patient have a stroke diagnosis?: No
[2022-04-14 11:12] LABS: Glucose, Whole Blood 168 mg/dL (60-115)
[2022-04-14 14:43] LABS: Appearance Urine Clear; Color Urine Yellow; Glucose Urine UA Negative (Negative); Leukocyte Esterase Urine Small (1+) (Negative); Nitrite Urine Negative (Negative); PH 6.5 (5.0-9.0); UMIC TRIGGER UACC YES; Urine Blood Small (1+) (Negative); Urine Ketones Negative (Negative); Urine Protein 100 (2+) mg/dL (Neg-Trace)
[2022-04-14 14:52] LABS: Bacteria Urine None Seen (None Seen); Hyaline Casts Urine 0-2 /LPF (0-2); RBC Urine >20 /HPF (0-2); Squamous Epithelial Cell Urine 0-2 /HPF (0-2); UACC Culture Trigger YES
[2022-04-14 15:43] VITALS: BP 146/78; PULSE 83; RESP 17; TEMP 36.7; O2SAT 97
[2022-04-14 15:53] LABS: Glucose, Whole Blood 195 mg/dL (60-115)
--- NOTE | 2022-04-14 16:02 | PM.IDPN ---
Subjective Subjective Date of Service: 04/14/22 Critical Care Time (minutes): 15 Comment: patient not very interactive Objective Data Labs CBC & Chem 7: 04/14/22 06:49 04/14/22 06:49 Labs: Laboratory Results - last 24 hr 04/10/22 04/13/22 04/13/22 18:32 19:17 19:50 WBC RBC Hgb 7.8 L Hct 22.3 L MCV MCH MCHC RDW Plt Count MPV Absolute Nucleated RBC Nucleated RBC % (auto) Sodium Potassium Chloride Carbon Dioxide Anion Gap BUN Creatinine Estim Creat Clear Calc Estimated GFR POC Glucose 185 H Random Glucose Calcium Phosphorus Magnesium Albumin Urine Color Urine Appearance Urine pH Ur Specific [place] Urine Protein Urine Glucose (UA) Urine Ketones Urine Blood Urine Nitrite Ur Leukocyte Esterase Urine RBC Urine WBC Ur Squamous Epith Cells Urine Bacteria Hyaline Casts Crossmatch See Detail 04/14/22 04/14/22 04/14/22 06:49 06:49 07:09 WBC 5.6 RBC 2.84 L D Hgb 8.0 L Hct 23.7 L MCV 83.5 MCH 28.2 MCHC 33.8 RDW 16.5 H Plt Count 87 L D MPV 10.5 Absolute Nucleated RBC 0.000 Nucleated RBC % (auto) 0.0 Sodium 143 Potassium 3.6 Chloride 109 H Carbon Dioxide 24 Anion Gap 14 BUN 76 H Creatinine 4.38 H* Estim Creat Clear Calc 14.2 Estimated GFR 13 POC Glucose 127 H Random Glucose 136 H Calcium 8.1 L Phosphorus 3.3 Magnesium 1.8 Albumin 2.9 L Urine Color Urine Appearance Urine pH Ur Specific [place] Urine Protein Urine Glucose (UA) Urine Ketones Urine Blood Urine Nitrite Ur Leukocyte Esterase Urine RBC Urine WBC Ur Squamous Epith Cells Urine Bacteria Hyaline Casts Crossmatch 04/14/22 04/14/22 04/14/22 11:07 14:34 15:45 WBC RBC Hgb Hct MCV MCH MCHC RDW Plt Count MPV Absolute Nucleated RBC Nucleated RBC % (auto) Sodium Potassium Chloride Carbon Dioxide Anion Gap BUN Creatinine Estim Creat Clear Calc Estimated GFR POC Glucose 168 H 195 H Random Glucose Calcium Phosphorus Magnesium Albumin Urine Color Yellow Urine Appearance Clear Urine pH 6.5 Ur Specific [place] 1.010 Urine Protein 100 (2+) H Urine Glucose (UA) Negative Urine Ketones Negative Urine Blood Small (1+) H Urine Nitrite Negative Ur Leukocyte Esterase Small (1+) H Urine RBC >20 H Urine WBC 6-10 H Ur Squamous Epith Cells 0-2 Urine Bacteria None Seen Hyaline Casts 0-2 Crossmatch Microbiology Microbiology Results: Microbiology 03/31/22 15:07 Blood - Venous Blood Culture - Final No growth after 5 days. 03/31/22 15:07 Blood - Venous Blood Culture - Final No growth after 5 days. 03/31/22 00:00 Urine Other - Nephrostomy Urine Culture - Final Staphylococcus cohnii ssp urea 03/31/22 15:02 Blood - Venous Blood Culture - Final 03/31/22 15:02 Blood - Venous Blood Culture - Final Physical Exam Vital Signs: Vital Signs: Last Vital Signs Temp 98.0 F 04/14/22 15:43 Pulse 83 04/14/22 15:43 Resp 17 04/14/22 15:43 BP 146/78 H 04/14/22 15:43 Pulse Ox 97 04/14/22 15:43 O2 Del Method 04/14/22 15:43 O2 Flow Rate 2 04/14/22 10:40 Oxygen Flow Rate 4 03/31/22 10:53 BMI result Body Mass Index 29.5 Const: General: cooperative Resp: Effort & Inspection: normal respiratory effort Cardio: Rate: regular rate Rhythm: regular rhythm GI: Other: slt distended,decreased bowel sounds Assessment and Plan Assessment and plan (1) Pneumonia: Status: Acute (2) Encephalopathy acute: Status: Acute Plan Abdominal distention mild Would check CT abdomen and pelvis 3-5 d IV antibiotics likely ,Doxycycline and Zosyn Time Spent With Patient Time: Total time spent is greater than 50% in coordination of care (as documented) at patient's floor/unit and/or counseling patient:
--- NOTE | 2022-04-14 16:31 | HO.PM.IMPN ---
Subjective Subjective Date of Service: 04/14/22 Interval History: Seen in follow up for AMS interval history: Patient unable to providemuch history only oriented to self. recurrent hypothermia to 93 degrees this morning. No other cirrhosis criteria. Has been tolerating food orally when given by his nephew who is his healthcare proxy but otherwise demonstrates paranoia. He is on PPN. Afebrile. Waldrop in place with CBI running clear. -200ml nephrostomy Review of Systems Review of Systems: Yes Unobtainable due to mental condition Physical Exam Vital Signs: Vital Signs: Last Vital Signs Temp 98.0 F 04/14/22 15:43 Pulse 83 04/14/22 15:43 Resp 17 04/14/22 15:43 BP 146/78 H 04/14/22 15:43 Pulse Ox 97 04/14/22 15:43 O2 Del Method 04/14/22 15:43 O2 Flow Rate 2 04/14/22 10:40 Oxygen Flow Rate 4 03/31/22 10:53 BMI result Body Mass Index 29.5 Constitutional - Awake and Alert, No apparent distress Eyes - PERRLA, EOMI Cardiovascular - S1S2, RRR, No edema Respiratory - Normal lung expansion, Normal respiratory effort, No respiratory distress, CTA bilaterally Gastrointestinal - Softly distended abdomen. NT / ND; +BS; No rebound or guarding Extremities - no calf tenderness bilaterally, no swelling Skin - Warm/Dry Neurological - Alert & oriented to self Psychological - Appropriate affect Objective Data Active Medications Acetaminophen (Acetaminophen 325 Mg Tablet) 650 mg PO Q6H PRN PRN Reason: Pain, Mild (Pain Scale 1-3) Last Admin: 04/09/22 21:49 Dose: 650 mg Documented By: JOVANNI Albuterol/Ipratropium (Albuterol/Iprat 2.5/0.5mg 3 Ml Ampul.Neb) 3 ml INHALE RQ4H PRN PRN Reason: sob Amlodipine Besylate (Amlodipine Besylate 10 Mg Tablet) 10 mg PO DAILY [facility]; Protocol Last Admin: 04/06/22 09:04 Dose: Not Given Documented By: BIANCA Non-Admin Reason: See Note Aspirin (Aspirin 81 Mg Tab.Chew) 81 mg PO DAILY [facility] Last Admin: 04/06/22 09:04 Dose: Not Given Documented By: BIANCA Non-Admin Reason: See Note Atorvastatin Calcium (Atorvastatin Calcium 40 Mg Tablet) 40 mg PO DAILY [facility] Last Admin: 04/06/22 09:04 Dose: Not Given Documented By: BIANCA Non-Admin Reason: See Note Dextrose (Dextrose 50 % 25 Gm/50 Ml Syringe) 25 gm IVPUSH Q15M PRN; Protocol PRN Reason: per Hypoglycemia Standing Ord. Ferrous Sulfate (Ferrous Sulfate 324 Mg Tablet.) 324 mg PO DAILY [facility] Last Admin: 04/10/22 09:41 Dose: 324 mg Documented By: HAM Glucose (Glucose Gel 15 Gm Gel..Gram.) 15 gm PO Q15M PRN; Protocol PRN Reason: per Hypoglycemia Standing Ord. Thiamine HCl 100 mg/ Sodium (Chloride) 101 mls @ 208 mls/hr IV Q8H [facility] Last Infusion: 04/14/22 13:40 Dose: 0 mls/hr Documented By: CHECO Doxycycline Hyclate 100 mg/ (Sodium Chloride) 250 mls @ 166.67 mls/hr IV Q12H [facility] Last Admin: 04/14/22 15:54 Dose: 166.67 mls/hr Documented By: CHECO Piperacillin Sod/Tazobactam (Sod 2.25 gm/ Sodium Chloride) 50 mls @ 100 mls/hr IV Q6H [facility] Last Admin: 04/14/22 15:54 Dose: 100 mls/hr Documented By: CHECO Lactated Ringer's (Lr) 1,000 mls @ 80 mls/hr IVCONT .[id number] [facility] Last Infusion: 04/14/22 15:55 Dose: 0 mls/hr Documented By: CHECO Magnesium Sulfate 5 meq/Calcium Gluconate 4.65 meq/Sodium Acetate 15 meq/ Sodium Phosphate 10 mmol/ Potassium Acetate 20 meq/ Multivitamins 14 ml/ Trace Metals 1.4 ml/Amino Acids/Electrolytes/Dextrose 720 mls @ 30 mls/hr IVCONT DAILY@1800 [facility] Stop: 04/14/22 17:59 Last Admin: 04/13/22 18:21 Dose: 30 mls/hr Documented By: KEN Fat Emulsion Intravenous (Intralipid) 144 mls @ 12 mls/hr IVCONT BID@0600,1800 [facility] Stop: 04/14/22 17:59 Last Admin: 12/07/22 01:20 Dose: 12 mls/hr Documented By: AUDRA Magnesium Sulfate 5 meq/Calcium Gluconate 4.65 meq/Sodium Acetate 15 meq/ Sodium Phosphate 10 mmol/ Potassium Acetate 20 meq/ Multivitamins 14 ml/ Trace Metals 1.4 ml/Amino Acids/Electrolytes/Dextrose 720 mls @ 30 mls/hr IVCONT DAILY@1800 [facility] Stop: 04/15/22 17:59 Fat Emulsion Intravenous (Intralipid) 144 mls @ 12 mls/hr IVCONT BID@0600,1800 [facility] Stop: 04/15/22 17:59 Insulin Human Lispro (Insulin Lispro 100 Unit/Ml 3 Ml Vial) 0 unit SUBCUT QIDACHS [facility]; Protocol Last Admin: 04/14/22 15:58 Dose: Not Given Documented By: CHECO Non-Admin Reason: No Insulin Coverage Magnesium Oxide (Magnesium Oxide 400 Mg Tablet) 400 mg PO BID [facility] Last Admin: 04/11/22 09:00 Dose: Not Given Documented By: BECKY Non-Admin Reason: Hold per Melatonin (Melatonin 3 Mg Tablet) 6 mg PO BEDTIME PRN PRN Reason: insomnia Nadolol (Nadolol 20 Mg Tablet) 20 mg PO DAILY [facility]; Protocol Last Admin: 04/06/22 09:05 Dose: Not Given Documented By: BIANCA Non-Admin Reason: See Note Olanzapine (Olanzapine 5 Mg Tablet) 5 mg PO BEDTIME [facility] Last Admin: 04/10/22 22:10 Dose: 5 mg Documented By: JAXSON Ondansetron HCl (Ondansetron Hcl 4 Mg/2 Ml Vial) 4 mg IVPUSH Q6H PRN PRN Reason: Nausea Last Admin: 04/12/22 15:07 Dose: 4 mg Documented By: MOHAN Rifaximin (Rifaximin 550 Mg Tablet) 550 mg PO BID [facility] Last Admin: 04/06/22 09:05 Dose: Not Given Documented By: BIANCA Non-Admin Reason: See Note Sodium Bicarbonate (Sodium Bicarbonate 650 Mg Tablet) 650 mg PO BID [facility] Last Admin: 04/11/22 09:00 Dose: Not Given Documented By: BECKY Non-Admin Reason: hold per MD Sodium Chloride (0.9 % Sodium Chloride Flush 3 Ml Syringe) 3 ml IVFLUSH QSHIFT [place] Last Admin: 04/14/22 16:03 Dose: Not Given Documented By: CHECO Non-Admin Reason: IV Running Labs CBC & Chem 7: 04/14/22 06:49 04/14/22 06:49 Labs: Laboratory Results - last 24 hr 04/10/22 04/13/22 04/14/22 18:32 19:50 06:49 MCV MCH MCHC RDW Plt Count MPV Absolute Nucleated RBC Nucleated RBC % (auto) Anion Gap 14 Estim Creat Clear Calc 14.2 Estimated GFR 13 POC Glucose 185 H Random Glucose 136 H Calcium 8.1 L Phosphorus 3.3 Magnesium 1.8 Albumin 2.9 L Urine Color Urine Appearance Urine pH Ur Specific [place] Urine Protein Urine Glucose (UA) Urine Ketones Urine Blood Urine Nitrite Ur Leukocyte Esterase Urine RBC Urine WBC Ur Squamous Epith Cells Urine Bacteria Hyaline Casts Crossmatch See Detail 04/14/22 04/14/22 04/14/22 06:49 07:09 11:07 MCV 83.5 MCH 28.2 MCHC 33.8 RDW 16.5 H Plt Count 87 L D MPV 10.5 Absolute Nucleated RBC 0.000 Nucleated RBC % (auto) 0.0 Anion Gap Estim Creat Clear Calc Estimated GFR POC Glucose 127 H 168 H Random Glucose Calcium Phosphorus Magnesium Albumin Urine Color Urine Appearance Urine pH Ur Specific [place] Urine Protein Urine Glucose (UA) Urine Ketones Urine Blood Urine Nitrite Ur Leukocyte Esterase Urine RBC Urine WBC Ur Squamous Epith Cells Urine Bacteria Hyaline Casts Crossmatch 04/14/22 04/14/22 14:34 15:45 MCV MCH MCHC RDW Plt Count MPV Absolute Nucleated RBC Nucleated RBC % (auto) Anion Gap Estim Creat Clear Calc Estimated GFR POC Glucose 195 H Random Glucose Calcium Phosphorus Magnesium Albumin Urine Color Yellow Urine Appearance Clear Urine pH 6.5 Ur Specific [place] 1.010 Urine Protein 100 (2+) H Urine Glucose (UA) Negative Urine Ketones Negative Urine Blood Small (1+) H Urine Nitrite Negative Ur Leukocyte Esterase Small (1+) H Urine RBC >20 H Urine WBC 6-10 H Ur Squamous Epith Cells 0-2 Urine Bacteria None Seen Hyaline Casts 0-2 Crossmatch Assessment and Plan (1) STAN (acute kidney injury): Status: Acute (2) Bladder cancer: Status: Acute (3) Pneumonia: Status: Acute (4) Gross hematuria: Status: Acute Plan 76-year-old male presents unresponsive, hypotensive, hypothermic in the backdrop of active urinary sediment.? More cooperative with Zyprexa however somewhat agitated overnight.? Additional dose of Zyprexa given ?#acute hypoxemic respiratory failure,? possible secondary hypoalbuminemia ,possible liver disease /cirrosis ,less likely CHF ( unclear etiology), now possible pneumonia hypoxia improving, but still requiring 2L supplemental O2 echo : ef 55-60% chest x-ray-? Atelectasis /effusion, ABG reviewed- pH seems fine., ammonia? Fine. daily weight,i/o, incentive spirometry, chest physiotherapy,? Continue suctioning,? Oxygen support,?oxygen support-keep sats 92 % Received Lasix for 1 day but seems like less likely CHF but more likely due to atelectasis/ hypoalbuminemia/now with pneumonia Hypoxemia improved significantly, now is awake and also eating somewhat. 04/11 CXR shwoing low lung cvolumes with similar small right sided pleural effusions and increased right >left patchy parenchymal airspace opacities reflective of atelectasis vs superimposed infection. Started on zosyn and doxycycline #toxic metabolic encephalopathy :? Multifactorial(electrolytic abnormalities/poor oral intake/ dementia/zyprexa,stan on ckd) slightly slowly somewhat improving CT head negative,mri reviewed by neuro,EEG due to fairly severe diffuse background slowing consistent with a diffuse encephalopathic process. neuro saw the patient-encephalopathy Possibly? related to multifactorial basis with? hypoxia, metabolic abnormalities and baseline dementia supportive care. -Resume scheduled zyprexa per psychiatry -Treat for pneumonia as below. Recheck for UTI with UA/UC given ongoing encephalopathy and hypothermia -Abdomen also noted to be distended- check abd/pelvis CT #Acute pneumonia -04/11 CXR shwoing low lung cvolumes with similar small right sided pleural effusions and increased right >left patchy parenchymal airspace opacities reflective of atelectasis vs superimposed infection. Started on zosyn and doxycycline -Seen by ID advising 3-5 days doxy and zosyn - continue supplemental O2 as above # hematuria secondary to trauma from patient getting out of bed pulling on Waldrop catheter - CBI running clear for 24 hours. Rate slowed and plan to DC - DC bladder scans as there has been no retention #UTI completed antibiotics -culture unreliable from nephrostomy tube.? 0urine culture noted- received 7 days of antibiotic, discussed with infectious disease- urine culture and chest x-ray: patient does not have any leukocytosis or fever, blood culture negative, off? ceftriaxone. -04/14- repeat UA/UC due to hypothermia with ongoing encephalopathy as above. Continue zosyn and doxy Hypothermia- recurred this am with temp 93.1. Pt placed on jerry hugger tsh boderline elevated? ,add t4 boderline low- less likely related will check with endocrinology for recomendations -follow tsh and free t4 in 1week -04/14- continue jerry hugger until normothermic. Assess for infection with UA/UC, treat pneumonia as above. Check abd/pelvis CT due to distension. No leukocytosis. No other SIRS criteria -Could also be secondary to poor nutrition on PPM -Less likely olanzepine usage as this has been held for 4 days ?Anemia/thrombocytopenia-multifactorial : poor oral inatke/hematuria also contributin,live dis -stable at this time between 7-8 range -follow daily CBCs Type 2 diabetes: flacutaing fs 160's dm diet ?lispro coorectional scale. ?Dementia unspecified with agitated features -evaluated by pscyhiatry- recommending resuming zyprexa 5mg ?possible failure to thrive/hypoalbuminemia:? patient is not eating well from at least 2 weeks. ? Family currently does not wants central line so started PPN and eating one meal per day with his nephew who is HCP ?family does not want tube feeding also seen by speech and swallow -added diet. diet can be tailered as per menatl status. hx of HHC s/p ablation ,as well as hx of bladder cancer on palltive immunotherpay: supportive care. stan on ckd(stage unclear ,per family cr is between 2-3): multifactorial -ftt/bladder canncer ,hematuria cr trending up-urine creatinine, sodium, total protein and Abdominal ultrasound reviewed with nephro/urology. as per family his basline cr is between 2-3 continue ppn,hold nephrotoxic meds ,iv hydration -Per nephrology continue LR, avoid nephrotoxic agents, dc octreotide -Follow BMP rifraximine/nadolol can start once gets more awake and able. d/w Gi -less likely hepatorenal Nephrology following- stan seems multifactorial(please see nephro note prerenal vs obstructive ) -received bicarb drip, bicarb seems to be improving, switched to nectar drinker now. also nephrostomy is drainin ok' has cbi due to hematuria d/w nephro /urology in detail and further with patient hcp- angus reddy, he not decided yet about nephrostomy ( need of right side) acute blood loss anemia sec to hematuria ( in setting of bladder ca),stan: clearing mostly pinkish urine -percutaneous nephrostomy tube draining clear urine since patient more cooperative urology will follow up if need cbi also given 3 prbc last 3 days -h/h6.6 -added 1 prbc today moniter h/h closely ?above management discussed with patient family in detail length they understand and in agreement with the above , healthcare proxy Mr. Menezes- they understand the patient prognosis is poor, currently continue conservative management,Mr menezes -does not wnat tube feeding or HD, if patient condition further deteriorate please inform the family . Full code Vena dynes boots-due to? Anemia/thrombocytopenia ongoing hospitalization for treatment:multiple issues ,acute hypoxemic respiratory failure multifactorial,FTT, toxic metabolic encephalopathy -as above. Quality Stroke Does the patient have a stroke diagnosis?: No VTE Prior VTE?: No VTE Risk Level:: Medical - moderate - high VTE Device Contraindication: N/A - Device Ordered VTE Drug Contraindication: Treatment Not Indicated
[2022-04-14 18:55] VITALS: PULSE 91; RESP 17; TEMP 37.2; O2SAT 97
[2022-04-14] MEDS: Diatrizoate Meglumine, Sodium 30 ML SOLUTION PO (21:18)
[2022-04-14 21:40] LABS: Glucose, Whole Blood 175 mg/dL (60-115)
[2022-04-14] MEDS: OLANZapine 5 MG TABLET PO (21:50)
[2022-04-14 23:32] VITALS: BP 185/91; PULSE 87; RESP 16; TEMP 36.7; O2SAT 96
[2022-04-15] MEDS: 0.9 % Sodium Chloride Flush 3 ML SYRINGE IVFLUSH ×3 (00:23→20:41)
[2022-04-15] MEDS: Doxycycline Hyclate 100 MG in 0.9 % Sodium Chloride 250 ML 166.67 MG IV ×2 (02:52→15:47)
[2022-04-15] MEDS: Piperacillin Sodium/Tazobactam 2.25 GM in 0.9 % Sodium Chloride 50 ML IV ×4 (02:53→20:59)
[2022-04-15] MEDS: Lactated Ringers 1,000 ML 80 ML IVCONT (02:55)
[2022-04-15 03:21] VITALS: BP 185/94; PULSE 83; RESP 19; TEMP 36.8; O2SAT 98
[2022-04-15] MEDS: Thiamine HCL 100 MG in 0.9 % Sodium Chloride 100 ML 208 MG IV ×3 (05:03→20:39)
[2022-04-15] MEDS: Fat Emulsions 20% 250 ML 12 ML IVCONT ×2 (05:03→20:40)
[2022-04-15 05:07] VITALS: BP 162/84
[2022-04-15 07:10] LABS: Glucose, Whole Blood 147 mg/dL (60-115)
[2022-04-15 07:21] VITALS: BP 173/81; PULSE 97; RESP 20; TEMP 36.4; O2SAT 96
[2022-04-15 07:51] LABS: Albumin Level 2.8 g/dL (3.5-5.0); Anion Gap 13 (12-20); Blood Urea Nitrogen 61 mg/dL (9-16); Calcium 8.1 mg/dL (8.4-10.2); Carbon Dioxide 24 mmol/L (22-29); Chloride 111 mmol/L (96-108); Creatinine Clr Calc Pharmacy 15.7; Estimated Glomerular Filt Rate 15; Glucose Random 156 mg/dL (60-115); Magnesium 1.6 mg/dL (1.6-2.6); Potassium 3.6 mmol/L (3.3-5.1); Sodium 144 mmol/L (135-145)
[2022-04-15 08:08] LABS: MANUAL DIFF FLAG NO
[2022-04-15 08:11] LABS: Basophils Percent Auto 0.4 % (0-2); Eosinophils Absolute Auto 0.1 X10*3/uL (0.0-0.4); Eosinophils Percent Auto 2.4 % (0-4); Hematocrit 24.1 % (42.0-52.0); Hemoglobin 8.2 g/dl (14.0-18.0); Imm Gran Abs Auto 0.08 X10*3/uL (0.00-0.03); Imm Gran Pct Auto 1.5 % (0.0-0.4); Lymphocytes Absolute Auto 0.6 X10*3/uL (1.2-4.9); Lymphocytes Percent Auto 10.7 % (20-40); Mean Corpuscular Hemoglobin 28.9 pg (27.0-33.0); Mean Corpuscular Volume 84.9 fL (80.0-98.0); Mean Platelet Volume 10.4 fL (9.4-12.4); Monocytes Absolute Auto 0.5 X10*3/uL (0.1-1.2); Monocytes Percent Auto 8.7 % (2-11); Neutrophils Absolute Auto 4.2 x10*3/uL (2.0-8.3); Neutrophils Percent Auto 76.3 % (45-73); Platelet Count 118 X10*3/uL (160-400); Red Blood Count 2.84 X10*6/uL (4.60-5.80); Red Cell Distribution Width 16.6 % (11.0-16.0); White Blood Count 5.5 X10*3/uL (4.8-10.8)
[2022-04-15 09:08] LABS: TSH reflex Free T4 7.67 uIU/mL (0.32-4.0)
[2022-04-15 10:17] LABS: Free T4 (Free Thyroxine) 0.71 ng/dL (0.71-1.85)
--- NOTE | 2022-04-15 11:00 | P.PNNP_ITS ---
Subjective Subjective Date of Service: 04/15/22 Interval history: Evens noted Unable to give ROs Physical Exam Vital Signs: Vital Signs: Last Vital Signs Temp 97.6 F 04/15/22 07:21 Pulse 97 04/15/22 07:21 Resp 20 04/15/22 07:21 BP 173/81 H 04/15/22 07:21 Pulse Ox 96 04/15/22 07:21 O2 Del Method 04/15/22 07:21 O2 Flow Rate 2 04/15/22 07:21 Oxygen Flow Rate 4 03/31/22 10:53 BMI result Body Mass Index 29.5 Const: General: lethargic Orientation/consciousness: lethargic Neck: Neck: Yes supple Resp: Effort & Inspection: no respiratory distress Cardio: Heart sounds: no murmurs and no rubs GI: Palpation (GI): Soft to palpation Extrem: General: No clubbing and No cyanosis Objective Data Labs CBC & Chem 7: 04/15/22 07:56 04/15/22 06:53 Labs: Laboratory Results - last 24 hr 04/14/22 04/14/22 04/14/22 11:07 14:34 15:45 WBC RBC Hgb Hct MCV MCH MCHC RDW Plt Count MPV Immature Gran % (Auto) Neut % (Auto) Lymph % (Auto) [place] % (Auto) Eos % (Auto) Baso % (Auto) Lymph # (Auto) [place] # (Auto) Eos # (Auto) Baso # (Auto) Abs Immat Gran (auto) Absolute Neuts (auto) Absolute Nucleated RBC Nucleated RBC % (auto) Sodium Potassium Chloride Carbon Dioxide Anion Gap BUN Creatinine Estim Creat Clear Calc Estimated GFR POC Glucose 168 H 195 H Random Glucose Calcium Phosphorus Magnesium Albumin TSH Free T4 Urine Color Yellow Urine Appearance Clear Urine pH 6.5 Ur Specific [place] 1.010 Urine Protein 100 (2+) H Urine Glucose (UA) Negative Urine Ketones Negative Urine Blood Small (1+) H Urine Nitrite Negative Ur Leukocyte Esterase Small (1+) H Urine RBC >20 H Urine WBC 6-10 H Ur Squamous Epith Cells 0-2 Urine Bacteria None Seen Hyaline Casts 0-2 04/14/22 04/15/22 04/15/22 21:35 06:53 07:06 WBC RBC Hgb Hct MCV MCH MCHC RDW Plt Count MPV Immature Gran % (Auto) Neut % (Auto) Lymph % (Auto) [place] % (Auto) Eos % (Auto) Baso % (Auto) Lymph # (Auto) [place] # (Auto) Eos # (Auto) Baso # (Auto) Abs Immat Gran (auto) Absolute Neuts (auto) Absolute Nucleated RBC Nucleated RBC % (auto) Sodium 144 Potassium 3.6 Chloride 111 H Carbon Dioxide 24 Anion Gap 13 BUN 61 H Creatinine 3.97 H Estim Creat Clear Calc 15.7 Estimated GFR 15 POC Glucose 175 H 147 H Random Glucose 156 H Calcium 8.1 L Phosphorus 3.0 Magnesium 1.6 Albumin 2.8 L TSH 7.67 H Free T4 0.71 Urine Color Urine Appearance Urine pH Ur Specific [place] Urine Protein Urine Glucose (UA) Urine Ketones Urine Blood Urine Nitrite Ur Leukocyte Esterase Urine RBC Urine WBC Ur Squamous Epith Cells Urine Bacteria Hyaline Casts 04/15/22 07:56 WBC 5.5 RBC 2.84 L Hgb 8.2 L Hct 24.1 L MCV 84.9 MCH 28.9 MCHC 34.0 RDW 16.6 H Plt Count 118 L D MPV 10.4 Immature Gran % (Auto) 1.5 H Neut % (Auto) 76.3 H Lymph % (Auto) 10.7 L [place] % (Auto) 8.7 Eos % (Auto) 2.4 Baso % (Auto) 0.4 Lymph # (Auto) 0.6 L [place] # (Auto) 0.5 Eos # (Auto) 0.1 Baso # (Auto) 0.0 Abs Immat Gran (auto) 0.08 H Absolute Neuts (auto) 4.2 Absolute Nucleated RBC 0.000 Nucleated RBC % (auto) 0.0 Sodium Potassium Chloride Carbon Dioxide Anion Gap BUN Creatinine Estim Creat Clear Calc Estimated GFR POC Glucose Random Glucose Calcium Phosphorus Magnesium Albumin TSH Free T4 Urine Color Urine Appearance Urine pH Ur Specific [place] Urine Protein Urine Glucose (UA) Urine Ketones Urine Blood Urine Nitrite Ur Leukocyte Esterase Urine RBC Urine WBC Ur Squamous Epith Cells Urine Bacteria Hyaline Casts Microbiology Microbiology Results: Microbiology 04/14/22 00:00 Urine clean catch - Urine villavicencio top Urine Culture - Final No growth. 03/31/22 15:07 Blood - Venous Blood Culture - Final No growth after 5 days. 03/31/22 15:07 Blood - Venous Blood Culture - Final No growth after 5 days. 03/31/22 00:00 Urine Other - Nephrostomy Urine Culture - Final Staphylococcus cohnii ssp urea 03/31/22 15:02 Blood - Venous Blood Culture - Final 03/31/22 15:02 Blood - Venous Blood Culture - Final Procedures Date of Service Date of Service: 04/15/22 Assessment & Plan Assessment and plan (1) ANDREEA (acute kidney injury): Status: Acute Assessment and Plan: 1. Acute kidney injury superimposed on chronic kidney disease. ?The chronic kidney disease, most likely due to diabetic nephropathy, although he has not undergone a biopsy.? The superimposed acute kidney injury is most likely due to obstructive uropathy based on the recent imaging studies.? There was a component of volume depletion. 2. Severe anemia, which is multifactorial. 3. Hyperchloremic metabolic acidosis in the setting of renal failure. 4. Bladder carcinoma with obstructive uropathy, status post left PCN. 5. Cirrhosis of the liver. 6. History of hypertension.? He has had multiple episodes of hypotension. ? RECOMMENDATIONS:? Urology f/u for ongoing bladder Ca and hematuria l continue to hold the amlodipine due to low BP ?Transfuse as needed to keep HB > 7.0 , he may benefit from erythropoietin replacement therapy. Keep I > O Gradual improvement in renal function with IVF No absolute indication for dialysis Continue to avoid nephrotoxic agents including NSAIDs.? Can DC NaHOC3 if tCO2 > 24 D/w Family(nephew) - NO [place] [employer] if renal func worsens d/w Medical team ? (2) Failure to thrive in adult: Status: Acute (3) Gross hematuria: Status: Acute (4) Bladder cancer: Status: Acute Time Spent With Patient Time: Total time spent is greater than 50% in coordination of care (as documented) at patient's floor/unit and/or counseling patient: Progress Note: Quality Stroke Does the patient have a stroke diagnosis?: No
[2022-04-15 11:02] LABS: Glucose, Whole Blood 175 mg/dL (60-115)
[2022-04-15 11:21] VITALS: BP 168/80; PULSE 76; RESP 20; TEMP 36.3; O2SAT 95
--- NOTE | 2022-04-15 11:30 | MHC.CLN ---
F/U REVIEWED LABS 25% PO X 1 MEAL DIET RX: PUREED DIET WITH NT LIQ-APPROPRIATE PER POLICE JUDGE PT RECEIVED D10AA4.25 AT 30ML/HR WITH 12 ML OF 20% LIPIDS PROVIDES 943 TOTAL KCALS (50% OF ESTIMATED KCALS NEEDS), 31G PROTEIN (.4G/KG) DISCUSSED WITH PHARMACY REPLETE LYTES NEEDED; MONITOR RENAL INDICES CLOSELY CONTINUE CURRENT PPN FORMULA FOLLOWING WITH TEAM
--- NOTE | 2022-04-15 11:46 | P.CDIC_ITS ---
CDI Concurrent Query Documentation Clarification: PHYSICIAN'S DOCUMENTATION REQUEST Date of Query: 04/15/22 1146 Patient Name: Claudio Garcia Admit Date: 03/31/22 Dear Doctor, A review of the medical record indicates additional documentation may be indicated. Please review below and update the documentation accordingly. Clinical Indicators: Current documentation includes a diagnosis of UTI. Additional clinical indicators in the record that may link cause of UTI include: Risk Factors/Clinical Indicators/Treatments POA/TREAT/RESOLVED/RULE OUT -PMH of bladder cancer -Patient presented to ED with chronic ne phrostomy -Per provider note on 04/14/22: UTI completed antibiotics -culture unreliable from nephrostomy tub e Labs: Urine culture on admit (+) for Staphylococcus Urine on admit cloudy & turbid and (+) WBCs, leukocyte esterase, protein, blood, & RBCs Please provide further specificity regarding the site, etiology, acuity, and known or suspected organism: * Indicate if associated with a device, specify if , nephrostomy cath, Waldrop cath, suprapubic cath, etc. * Other (please specify) * Unable to determine site * Indicate known or suspected organism * Staphylococcus * E-coli * Klebsiella * Ashley * Other (please specify) Use of terms such as suspected, likely, concern for, or probable (associated with a specific diagnosis that is being evaluated, monitored, or treated as if it exists) are acceptable and can be coded in the inpatient setting, when documented at the time of discharge. Thank you, Jill Peñaloza MS, RN, CCRN Extension: [phone] Please use your independent medical judgment in providing your response. THIS QUERY IS PART OF THE PERMANENT MEDICAL RECORD Provider Response: UTI Other Diagnosis: UTI- resolved following appropriate course antibiotics
--- NOTE | 2022-04-15 12:18 | P.PNIM_ITS ---
Subjective Subjective Date of Service: 04/15/22 <VERONICA Benito - Last Filed: 04/15/22 15:13> 04/25/22 <Aguilar Palma MD - Last Filed: 04/25/22 08:54> Interval History: Seen in follow up for AMS interval history: Patient mentation improved today. Olanzepine was resumed last night. States he feels generally unwell, unable to elaborate but does state he has pain in his rectum. He also reports cough and chest congestion. He has moved his bowels twice since yesterday. No diarrhea. Denies abd pain, nausea, vomiting, melena, hematochezia. No further hypothermia, jerry hugger removed last night. CBI rate was slowed but hematuria recurred. CBI now wide open with fruit punch colored output no clots. H/H stable. <VERONICA Benito - Last Filed: 04/15/22 15:13> Review of Systems Limited secondary to patient mental status General: +malaise. No fevers, unintentional weight loss Cardiovascular: No chest pain, palpitations, or leg edema Respiratory: +cough, +chest congestion. No shortness of breath. GI: +rectal pain. No abdominal pain, nausea, vomiting, diarrhea, constipation, melena, hematochezia <VERONICA Benito - Last Filed: 04/15/22 15:13> Physical Exam Vital Signs: Vital Signs: Last Vital Signs Temp 97.3 F 04/15/22 11:21 Pulse 76 04/15/22 11:21 Resp 20 04/15/22 11:21 BP 168/80 H 04/15/22 11:21 Pulse Ox 95 04/15/22 11:21 O2 Del Method 04/15/22 11:21 O2 Flow Rate 2 04/15/22 07:21 Oxygen Flow Rate 4 03/31/22 10:53 BMI result Body Mass Index 29.5 <VERONICA Benito - Last Filed: 04/15/22 15:13> Constitutional - Awake and Alert, No apparent distress Eyes - PERRLA, EOMI Cardiovascular - S1S2, RRR, No edema Respiratory - Normal lung expansion, Normal respiratory effort, No respiratory distress, CTA bilaterally Gastrointestinal - NT / ND; +BS; No rebound or guarding : Left nephrostomy tube in place Extremities - no calf tenderness bilaterally, no swelling Musculoskeletal - Normal inspection, normal ROM Skin - Warm/Dry Neurological - Alert & oriented to self, CN II-XII in tact, 5/5 strength BUE and BLE Psychological - Appropriate affect <VERONICA Benito - Last Filed: 04/15/22 15:13> Objective Data Active Medications Acetaminophen (Acetaminophen 325 Mg Tablet) 650 mg PO Q6H PRN PRN Reason: Pain, Mild (Pain Scale 1-3) Last Admin: 04/09/22 21:49 Dose: 650 mg Documented By: JOVANNI Albuterol/Ipratropium (Albuterol/Iprat 2.5/0.5mg 3 Ml Ampul.Neb) 3 ml INHALE RQ4H PRN PRN Reason: sob Amlodipine Besylate (Amlodipine Besylate 10 Mg Tablet) 10 mg PO DAILY [facility]; Protocol Last Admin: 04/06/22 09:04 Dose: Not Given Documented By: BIANCA Non-Admin Reason: See Note Aspirin (Aspirin 81 Mg Tab.Chew) 81 mg PO DAILY [facility] Last Admin: 04/06/22 09:04 Dose: Not Given Documented By: BIANCA Non-Admin Reason: See Note Atorvastatin Calcium (Atorvastatin Calcium 40 Mg Tablet) 40 mg PO DAILY [facility] Last Admin: 04/06/22 09:04 Dose: Not Given Documented By: BIANCA Non-Admin Reason: See Note Dextrose (Dextrose 50 % 25 Gm/50 Ml Syringe) 25 gm IVPUSH Q15M PRN; Protocol PRN Reason: per Hypoglycemia Standing Ord. Ferrous Sulfate (Ferrous Sulfate 324 Mg Tablet.Dr) 324 mg PO DAILY [facility] Last Admin: 04/10/22 09:41 Dose: 324 mg Documented By: HAM Glucose (Glucose Gel 15 Gm Gel..Gram.) 15 gm PO Q15M PRN; Protocol PRN Reason: per Hypoglycemia Standing Ord. Thiamine HCl 100 mg/ Sodium (Chloride) 101 mls @ 208 mls/hr IV Q8H [facility] Last Infusion: 04/15/22 05:54 Dose: 0 mls/hr Documented By: ITALO Doxycycline Hyclate 100 mg/ (Sodium Chloride) 250 mls @ 166.67 mls/hr IV Q12H [facility] Last Infusion: 04/15/22 04:25 Dose: 0 mls/hr Documented By: ITALO Piperacillin Sod/Tazobactam (Sod 2.25 gm/ Sodium Chloride) 50 mls @ 100 mls/hr IV Q6H [facility] Last Infusion: 04/15/22 09:28 Dose: 0 mls/hr Documented By: CHECO Magnesium Sulfate 5 meq/Calcium Gluconate 4.65 meq/Sodium Acetate 15 meq/ Sodium Phosphate 10 mmol/ Potassium Acetate 20 meq/ Multivitamins 14 ml/ Trace Metals 1.4 ml/Amino Acids/Electrolytes/Dextrose 720 mls @ 30 mls/hr IVCONT DAILY@1800 [facility] Stop: 04/15/22 17:59 Last Admin: 04/14/22 19:52 Dose: 30 mls/hr Documented By: ITALO Fat Emulsion Intravenous (Intralipid) 144 mls @ 12 mls/hr IVCONT BID@0600,1800 [facility] Stop: 04/15/22 17:59 Last Admin: 04/15/22 05:03 Dose: 12 mls/hr Documented By: ITALO Magnesium Sulfate 5 meq/Calcium Gluconate 4.65 meq/Sodium Acetate 15 meq/ Sodium Phosphate 10 mmol/ Potassium Acetate 20 meq/ Multivitamins 14 ml/ Trace Metals 1 .4 ml/Amino Acids/Electrolytes/Dextrose 720 mls @ 30 mls/hr IVCONT DAILY@1800 [facility] Stop: 04/16/22 17:59 Fat Emulsion Intravenous (Intralipid) 144 mls @ 12 mls/hr IVCONT BID@0600,1800 [facility] Stop: 04/16/22 17:59 Insulin Human Lispro (Insulin Lispro 100 Unit/Ml 3 Ml Vial) 0 unit SUBCUT QIDACHS [facility]; Protocol Last Admin: 04/15/22 11:35 Dose: Not Given Documented By: CHECO Non-Admin Reason: No Insulin Coverage Magnesium Oxide (Magnesium Oxide 400 Mg Tablet) 400 mg PO BID [facility] Last Admin: 04/11/22 09:00 Dose: Not Given Documented By: BECKY Non-Admin Reason: Hold per Melatonin (Melatonin 3 Mg Tablet) 6 mg PO BEDTIME PRN PRN Reason: insomnia Nadolol (Nadolol 20 Mg Tablet) 20 mg PO DAILY [facility]; Protocol Last Admin: 04/06/22 09:05 Dose: Not Given Documented By: BIANCA Non-Admin Reason: See Note Olanzapine (Olanzapine 5 Mg Tablet) 5 mg PO BEDTIME [facility] Last Admin: 04/14/22 21:50 Dose: 5 mg Documented By: ITALO Ondansetron HCl (Ondansetron Hcl 4 Mg/2 Ml Vial) 4 mg IVPUSH Q6H PRN PRN Reason: Nausea Last Admin: 04/12/22 15:07 Dose: 4 mg Documented By: MOHAN Rifaximin (Rifaximin 550 Mg Tablet) 550 mg PO BID [facility] Last Admin: 04/06/22 09:05 Dose: Not Given Documented By: BIANCA Non-Admin Reason: See Note Sodium Bicarbonate (Sodium Bicarbonate 650 Mg Tablet) 650 mg PO BID [facility] Last Admin: 04/11/22 09:00 Dose: Not Given Documented By: BECKY Non-Admin Reason: hold per MD Sodium Chloride (0.9 % Sodium Chloride Flush 3 Ml Syringe) 3 ml IVFLUSH QSHIFT [facility] Last Admin: 04/15/22 08:43 Dose: 3 ml Documented By: CHECO <VERONICA Benito - Last Filed: 04/15/22 15:13> Labs CBC & Chem 7: : 04/24/22 06:30 04/24/22 06:30 <VERONICA Benito - Last Filed: 04/15/22 15:13> Labs: Laboratory Results - last 24 hr 04/14/22 04/14/22 04/14/22 14:34 15:45 21:35 MCV MCH MCHC RDW Plt Count MPV Immature Gran % (Auto) Neut % (Auto) Lymph % (Auto) Pope % (Auto) Eos % (Auto) Baso % (Auto) Lymph # (Auto) Pope # (Auto) Eos # (Auto) Baso # (Auto) Abs Immat Gran (auto) Absolute Neuts (auto) Absolute Nucleated RBC Nucleated RBC % (auto) Anion Gap Estim Creat Clear Calc Estimated GFR POC Glucose 195 H 175 H Random Glucose Calcium Phosphorus Magnesium Albumin TSH Free T4 Urine Color Yellow Urine Appearance Clear Urine pH 6.5 Ur Specific [place] 1.010 Urine Protein 100 (2+) H Urine Glucose (UA) Negative Urine Ketones Negative Urine Blood Small (1+) H Urine Nitrite Negative Ur Leukocyte Esterase Small (1+) H Urine RBC >20 H Urine WBC 6-10 H Ur Squamous Epith Cells 0-2 Urine Bacteria None Seen Hyaline Casts 0-2 04/15/22 04/15/22 04/15/22 06:53 07:06 07:56 MCV 84.9 MCH 28.9 MCHC 34.0 RDW 16.6 H Plt Count 118 L D MPV 10.4 Immature Gran % (Auto) 1.5 H Neut % (Auto) 76.3 H Lymph % (Auto) 10.7 L Pope % (Auto) 8.7 Eos % (Auto) 2.4 Baso % (Auto) 0.4 Lymph # (Auto) 0.6 L Pope # (Auto) 0.5 Eos # (Auto) 0.1 Baso # (Auto) 0.0 Abs Immat Gran (auto) 0.08 H Absolute Neuts (auto) 4.2 Absolute Nucleated RBC 0.000 Nucleated RBC % (auto) 0.0 Anion Gap 13 Estim Creat Clear Calc 15.7 Estimated GFR 15 POC Glucose 147 H Random Glucose 156 H Calcium 8.1 L Phosphorus 3.0 Magnesium 1.6 Albumin 2.8 L TSH 7.67 H Free T4 0.71 Urine Color Urine Appearance Urine pH Ur Specific [place] Urine Protein Urine Glucose (UA) Urine Ketones Urine Blood Urine Nitrite Ur Leukocyte Esterase Urine RBC Urine WBC Ur Squamous Epith Cells Urine Bacteria Hyaline Casts 04/15/22 10:58 MCV MCH MCHC RDW Plt Count MPV Immature Gran % (Auto) Neut % (Auto) Lymph % (Auto) Pope % (Auto) Eos % (Auto) Baso % (Auto) Lymph # (Auto) Pope # (Auto) Eos # (Auto) Baso # (Auto) Abs Immat Gran (auto) Absolute Neuts (auto) Absolute Nucleated RBC Nucleated RBC % (auto) Anion Gap Estim Creat Clear Calc Estimated GFR POC Glucose 175 H Random Glucose Calcium Phosphorus Magnesium Albumin TSH Free T4 Urine Color Urine Appearance Urine pH Ur Specific [place] Urine Protein Urine Glucose (UA) Urine Ketones Urine Blood Urine Nitrite Ur Leukocyte Esterase Urine RBC Urine WBC Ur Squamous Epith Cells Urine Bacteria Hyaline Casts <VERONICA Benito - Last Filed: 04/15/22 15:13> Microbiology Microbiology Results: Microbiology 04/14/22 00:00 Urine Culture - Final Urine clean catch - Urine villavicencio top No growth. <VERONICA Benito - Last Filed: 04/15/22 15:13> Assessment and Plan (1) ANDREEA (acute kidney injury): Status: Acute <VERONICA Benito - Last Filed: 04/15/22 15:13> (2) Bladder cancer: Status: Acute <VERONICA Benito - Last Filed: 04/15/22 15:13> (3) Pneumonia: Status: Acute <VERONICA Benito - Last Filed: 04/15/22 15:13> (4) Gross hematuria: Status: Acute <VERONICA Benito - Last Filed: 04/15/22 15:13> Assessment and Plan: 76-year-old male presents unresponsive, hypotensive, hypothermic in the backdrop of active urinary sediment.? ?#acute hypoxemic respiratory failure,? possible secondary hypoalbuminemia ,possible liver disease /cirrosis ,less likely CHF, now possible pneumonia- seems to be resolved, currently 95% on RA echo : ef 55-60% On admission: chest x-ray-? Atelectasis /effusion, ABG reviewed- pH seems fine., ammonia? Fine. Continue suctioning prn,? chest physiotherapy Received Lasix for 1 day but seems like less likely CHF but more likely due to atelectasis/ hypoalbuminemia/now with pneumonia Hypoxemia improved significantly, now is awake and also eating somewhat. 04/11 CXR shwoing low lung cvolumes with similar small right sided pleural effusions and increased right >left patchy parenchymal airspace opacities reflective of atelectasis vs superimposed infection. Started on zosyn and doxycycline #toxic metabolic encephalopathy :? Multifactorial(electrolytic abnormalities/poor oral intake/ dementia/zyprexa,andreea on ckd) slightly slowly somewhat improving CT head negative,mri reviewed by neuro,EEG due to fairly severe diffuse background slowing consistent with a diffuse encephalopathic process. neuro saw the patient-encephalopathy Possibly? related to multifactorial basis with? hypoxia, metabolic abnormalities and baseline dementia supportive care. -Resume scheduled zyprexa per psychiatry -Treat for pneumonia as below. Recheck for UTI with UA/UC given ongoing encephalopathy and hypothermia -Abdomen also noted to be distended- check abd/pelvis CT #Acute pneumonia -04/11 CXR shwoing low lung cvolumes with similar small right sided pleural effusions and increased right >left patchy parenchymal airspace opacities reflective of atelectasis vs superimposed infection. Started on zosyn and doxy cycline -Seen by ID advising 3-5 days doxy and zosyn - continue supplemental O2 as above # hematuria secondary to trauma from patient getting out of bed pulling on Waldrop catheter - CBI running clear for 24 hours. Rate slowed and plan to DC - DC bladder scans as there has been no retention #UTI -resolved following 7 days abx. -UA/UC repeated 04/14 due to recurrent hypothermia with negative cultures. # Intermittent hypothermia -Likely secondary to poor nutrition. Continue PPM -Patient with subclinical hypothyroidism, not likely contributory -Olanzepine held for 4 days with recurrence of hypothermia. Not likely related to antipsychotis use -Not meeting other SIRS criteria, less likely related to infection, but continue treating pneumonia as above #Chronic normocytic anemia/thrombocytopenia -Multifactorial -H/H and PLT stable -Transfuse if hgb <7 -follow daily CBCs #Insulin dependent type 2 diabetes- glucsoe levels reasonably controlled -Continue PPN/diabetic diet -POC glucose -humalog SS #Dementia unspecified with agitated features -evaluated by pscyhiatry- olanzepine resumed, continue 5mg nightly ?#failure to thrive/hypoalbuminemia:? patient is not eating well for several weeks. Tolerating one PO meal daily when given by nephew, otherwise still PPN. -Olanzepine resumed last night. Patient more oriented, hopefully with less paranoia. Encourage PO intake for meals -Consider discontiuing PPN tomorrow if tolerates PO -No TPN per family (nephew, Clif, HCP) -seen by speech and swallow -added diet. diet can be tailered as per menatl status. #hx of HHC s/p ablation ,as well as hx of bladder cancer on palltive immunotherpay: supportive care. -Continue CBI for hematuria. Required 3 units PRBC total during admission -Discussed with urology who will see pt tomorrow am -Family declines right sided nephrostomy tube -H/H stable. Follow CBC #andreea on ckd(stage unclear ,per family cr is between 2-3): multifactorial - ftt/bladder canncer ,hematuria cr trending down as per family his basline cr is between 2-3 continue ppn,hold nephrotoxic meds ,iv hydration -Per nephrology continue LR, avoid nephrotoxic agents, dc octreotide -Dc NaHCO3 is CO2<24. -Follow BMP #Hepatic cirrhosis -Rifampin/nadolol has been on hold 2/2 mental status. Resumer d/w Gi -less likely hepatorenal Nephrology following- andreea seems multifactorial(please see nephro note prerenal vs obstructive ) -received bicarb drip, bicarb seems to be improving, switched to nectar drinker now. also nephrostomy is drainin ok' has cbi due to hematuria d/w nephro /urology in detail and further with patient hcp- angus reddy, he not decided yet about nephrostomy ( need of right side) ?above management discussed with patient family in detail length they understand and in agreement with the above , healthcare proxy Mr. Menezes- they understand the patient prognosis is poor, currently continue conservative management,Mr menezes -does not wnat tube feeding or HD, if patient condition further deteriorate please inform the family . Further discussed prognosis with nephewClif, this afternoon. He wishes for palliative therapy for his uncle. Will encourage PO nutrition and transition off of PPN tomorrow with plan to move to hospice case. Full code Vena dynes boots-due to? Anemia/thrombocytopenia ongoing hospitalization for treatment:multiple issues ,acute hypoxemic respiratory failure multifactorial,FTT, toxic metabolic encephalopathy -as above. <VERONICA Benito - Last Filed: 04/15/22 15:13> Quality Stroke Does the patient have a stroke diagnosis?: No <VERONICA Benito - Last Filed: 04/15/22 15:13> VTE Prior VTE?: No <VERONICA Benito - Last Filed: 04/15/22 15:13> VTE Risk Level:: Medical - moderate - high <VERONICA Benito - Last Filed: 04/15/22 15:13> VTE Device Contraindication: N/A - Device Ordered <VERONICA Benito - Last Filed: 04/15/22 15:13> VTE Drug Contraindication: Treatment Not Indicated <VERONICA Benito - Last Filed: 04/15/22 15:13>
[2022-04-15 15:49] VITALS: BP 162/93; PULSE 80; RESP 20; TEMP 36.1; O2SAT 93
[2022-04-15 15:56] LABS: Glucose, Whole Blood 231 mg/dL (60-115)
[2022-04-15] MEDS: Insulin Lispro 100 UNIT/ML 3 ML VIAL SUBCUT ×2 (16:41→20:41)
--- NOTE | 2022-04-15 18:40 | MHC.SL.SWA ---
Speech Pathologist Impression: Risk of Aspiration Due to: Medically Fragile Poor PO Intake Reduced Cognition Weak Cough Dysphasia Diet Status: Recommend continue diet of PUREE (NDD1) with NECTAR THICK liquids with pills CRUSHED in PUREE. Patient will need 1-1 feeding with close monitor for swallow before presenting any additional food/liquid, strict monitor for aspiration signs (discontinue if patient is coughing on food/liquid, or if patient sounds wet/gurgly during meal). Do not attempt if patient is lethargic or non-compliant. Ice chips for comfort. Liquid Consistency and Strategies for Safe Swallow: Liquid Intake Recommendation: [place] Thick Liquid Intake Strategies: Small Sips Liquids by Teaspoon Only Solid Food Consistency: Dietary Recommendations: Pureed (NDD1) Additional Modifications to Solid Foods: Patient will need 1-1 feeding with close monitor for swallow before presenting any additional food/liquid, strict monitor for aspiration signs (discontinue if patient is coughing on food/liquid, or if patient sounds wet/gurgly during meal). Do not attempt if patient is lethargic or non-compliant. Oral Medication Intake: Crushed with Puree Please contact the pharmacy regarding appropriate crushable or liquid drug formulations that are available whenever modified delivery is recommended. Compensatory Strategies and Precautions to be Taken for Safe Swallow: Sitting Upright (90 deg) No Straw Liquids from Spoon Small Bites and Sips Alternate Liquids/Solids Rate of Ingestion Change Oral Check Supervision While Eating and Drinking for Safe Swallow: Total Assistance (1:1) Foods to Avoid: Sticky, congealed purees, or very thin consistencies (e.g. pureed soups). Add sauces/gravies and blend well. Swallowing Recommended Treatments: Compens. Strategy Educat. Recommendation for Speech: Further Testing Needed Outpatient Speech Therapy Inpatient Speech Therapy Comment: Pt seen at lunch with Nephew present. Nephew had given patient some of the meal, however patient had eaten only a small amount before refusing more. Nephew reported that meals brought tend to be identical (Purees of chicken, potato, green beans) which he believed is leading to disinterest. Recommended Nephew speak to aids nurse regarding offering more choice/variety. Nephew additionally reported that he had brought rice and beans from home which the patient ate, with nephew describing care given to make sure consistency was very soft and blended. Different juices were retrieved as Nephew believed Patient preferred Cranberry juice, Patient was observed taking sips from cup of [place] thick cranberry juice with improved rate of oral transit noted, mildly improved timeliness of swallow. Patient also took bites of puree, with some mastication of the puree noted but no evidence of holding or pocketing as previously noted, mild delay initiating swallow. Patient also was observed given patient small ice chip and small sips of water, all without clinical signs of aspiration. Patient was more alert today, but has continued to have somewhat waxing/waning level of alertness and engagement over the past several days. Recommend NO CHANGE at this time, continue with diet of PUREE (NDD1), with [place] Thick liquids, pills crushed in puree. This discussed with Nephew who agrees with this plan. Frequency/Duration: Date Range for Service Req: Timeline to reassess: Radioactive Waste Disposal Dispatcher Clinican/Clinical Fellow: No Supervisory Statement: I have reviewed and agree with the student/clinical fellow's documentation: N/A Speech Language Pathologist: Samantha Shirley M.A., CCC-FINANCIAL MANAGEMENT
[2022-04-15 19:17] VITALS: BP 165/85; PULSE 70; RESP 20; TEMP 36.1; O2SAT 95
[2022-04-15 19:17] LABS: Glucose, Whole Blood 218 mg/dL (60-115)
[2022-04-15] MEDS: rifAXIMin 550 MG TABLET PO (20:41)
[2022-04-15] MEDS: OLANZapine 5 MG TABLET PO (20:41)
[2022-04-16] VITALS (9 sets, daily range): BP systolic 105–175; BP diastolic 60–87; PULSE 56–79; RESP 12–18; TEMP 35.6–36.7; O2SAT 94–96
[2022-04-16] MEDS: Piperacillin Sodium/Tazobactam 2.25 GM in 0.9 % Sodium Chloride 50 ML IV ×3 (01:34→13:55)
[2022-04-16] MEDS: Doxycycline Hyclate 100 MG in 0.9 % Sodium Chloride 250 ML 166.67 MG IV ×2 (01:35→15:25)
[2022-04-16] MEDS: Thiamine HCL 100 MG in 0.9 % Sodium Chloride 100 ML 208 MG IV ×2 (03:53→11:50)
[2022-04-16 06:35] LABS: MANUAL DIFF FLAG NO
--- NOTE | 2022-04-16 06:36 | PM.UROPN ---
Subjective Subjective Date of Service: 04/16/22 Patient reports: other (Nursing report needing to irrigate clots overnight) Interval history: Acute on chronic renal injury urine sodium and creatinine measured calculated FeNa suggestive of obstructive component patent, well draining left PCN Would suggest placement of right PCN if warranted invasive bladder cancer with Waldrop catheter for bladder drainage. Anemia - Hb dropped. Irrigation at bedside now for minimal clots. Cont CBI CT Abd/pelvis- 04/14/22 reviewed: Pertinent finding: KIDNEYS AND URETERS: A left nephrostomy catheter is present with the catheter terminating in the left renal pelvis grossly unchanged compared with 04/03/2022. Mild left perinephric fat reticulation is present. No left perinephric fluid collections identified. Mild left pelviectasis noted. No left-sided ureterectasis. Moderate right marked right ureterectasis diffusely which is unchanged in degree compared with 04/03/2022. BLADDER: Waldrop catheter terminates within the urinary bladder with gas noted in portions of the Waldrop catheter tubing. The urinary bladder is nearly fully decompressed.? Physical Exam Vital Signs: Vital Signs: Last Vital Signs Temp 98.1 F 04/16/22 04:00 Pulse 56 04/16/22 04:00 Resp 18 04/16/22 04:00 BP 148/74 H 04/16/22 04:00 Pulse Ox 94 04/16/22 04:00 O2 Del Method 04/16/22 04:00 O2 Flow Rate 2 04/15/22 07:21 Oxygen Flow Rate 4 03/31/22 10:53 BMI result Body Mass Index 29.5 Const: General: no acute distress HEENT: Head: Yes normocephalic and Yes atraumatic Neck: Neck: Yes normal visual inspection Chest: Chest palpation & inspection: normal inspection of the chest Resp: Effort & Inspection: normal respiratory effort Cardio: Rate: regular rate GI: Inspection: Yes normal to inspection Palpation (GI): Soft to palpation : Penis: normal penis Scrotum: scrotum normal Urology Results Labs CBC & Chem 7: 04/16/22 06:01 04/16/22 06:01 Labs: Laboratory Results - last 24 hr 04/15/22 04/15/22 04/15/22 06:53 07:06 07:56 WBC 5.5 RBC 2.84 L Hgb 8.2 L Hct 24.1 L MCV 84.9 MCH 28.9 MCHC 34.0 RDW 16.6 H Plt Count 118 L D MPV 10.4 Immature Gran % (Auto) 1.5 H Neut % (Auto) 76.3 H Lymph % (Auto) 10.7 L Bailey % (Auto) 8.7 Eos % (Auto) 2.4 Baso % (Auto) 0.4 Lymph # (Auto) 0.6 L Bailey # (Auto) 0.5 Eos # (Auto) 0.1 Baso # (Auto) 0.0 Abs Immat Gran (auto) 0.08 H Absolute Neuts (auto) 4.2 Absolute Nucleated RBC 0.000 Nucleated RBC % (auto) 0.0 Sodium 144 Potassium 3.6 Chloride 111 H Carbon Dioxide 24 Anion Gap 13 BUN 61 H Creatinine 3.97 H Estim Creat Clear Calc 15.7 Estimated GFR 15 POC Glucose 147 H Random Glucose 156 H Calcium 8.1 L Phosphorus 3.0 Magnesium 1.6 Albumin 2.8 L TSH 7.67 H Free T4 0.71 04/15/22 04/15/22 04/15/22 10:58 15:53 19:14 WBC RBC Hgb Hct MCV MCH MCHC RDW Plt Count MPV Immature Gran % (Auto) Neut % (Auto) Lymph % (Auto) Bailey % (Auto) Eos % (Auto) Baso % (Auto) Lymph # (Auto) Bailey # (Auto) Eos # (Auto) Baso # (Auto) Abs Immat Gran (auto) Absolute Neuts (auto) Absolute Nucleated RBC Nucleated RBC % (auto) Sodium Potassium Chloride Carbon Dioxide Anion Gap BUN Creatinine Estim Creat Clear Calc Estimated GFR POC Glucose 175 H 231 H 218 H Random Glucose Calcium Phosphorus Magnesium Albumin TSH Free T4 Date of Service: 04/14/22 EXAMINATION: CT ABDOMEN AND PELVIS WITHOUT CONTRAST? CLINICAL INFORMATION: Metabolic encephalopathy. Abdominal distention.? COMPARISON: MRI brain 04/06/2022. CT abdomen pelvis 04/03/2022. CT angiography neck 03/31/2022. Chest radiograph 04/11/2022. Abdominal ultrasound 04/09/2022. FINDINGS: LUNG BASES: Partial visualization is made of a moderate dependent layering pleural effusion which appears slightly decreased in size compared with 04/03/2022. Partial visualization is made of near complete right lower lobe atelectasis. A trace left pleural effusion is noted. Marked coronary artery calcific atherosclerosis is present diffusely. The heart size is grossly normal. No pericardial thickening or pericardial fluid collections identified.? LIVER, GALLBLADDER, AND BILIARY TREE: Liver demonstrates a micronodular contour. The liver is normal in size. Curvilinear dystrophic calcifications over an approximate 1 cm diameter region are present within the posterior segment of the right lobe of the liver. Multiple calcified dependent layering gallstones are present within the gallbladder lumen. A moderate quantity of right subphrenic perihepatic fluid is present increased compared with 04/03/2022. PANCREAS: Unremarkable.? SPLEEN: Unremarkable.? ADRENAL GLANDS: Unremarkable.? KIDNEYS AND URETERS: A left nephrostomy catheter is present with the catheter terminating in the left renal pelvis grossly unchanged compared with 04/03/2022. Mild left perinephric fat reticulation is present. No left perinephric fluid collections identified. Mild left pelviectasis noted. No left-sided ureterectasis. Moderate right marked right ureterectasis diffusely which is unchanged in degree compared with 04/03/2022. A 7 mm rounded low-density focus is present in the superior right renal pole and is most suspicious for a benign, simple cyst requiring no additional imaging follow-up. BLADDER: Waldrop catheter terminates within the urinary bladder with gas noted in portions of the Waldrop catheter tubing. The urinary bladder is nearly fully decompressed.? GASTROINTESTINAL TRACT: Motion artifact partially obscures visualization of the abdomen pelvis including the intestines. A cecal bascule is noted.? The appendix is normal in caliber. Scattered interloop fluid is noted with fluid most pronounced in the right lateral gutter (-31 Hounsfield units). ABDOMINAL WALL: Periumbilical hernia measuring 1.5 cm in diameter contains fat without evidence of inflammatory changes. Dependent subcutaneous edema is present within the pelvis and abdomen increased in prominence from the comparison exam suspicious for anasarca. LYMPH NODES: Normal. VASCULAR: Focal aneurysmal dilatation of the immediate infrarenal abdominal aorta to a maximum transverse dimension of 4.1 cm is unchanged from the comparison CT. Moderate scattered calcific atherosclerosis noted. PELVIC VISCERA: Normal size of the prostate.? OSSEOUS STRUCTURES: Multilevel chronic spondylosis of the thoracolumbar spine.? IMPRESSION: *Mild ascites increased compared with 04/03/2022. *Micronodular contour of the liver suspicious for cirrhosis. *Partially visualized moderate right pleural effusion and right lower lobe atelectasis. *Left percutaneous nephrostomy tube unchanged in positioning compared with 04/03/2022. Unchanged diffuse marked right ureterectasis compared with 04/03/2022. Waldrop catheter terminating within the urinary bladder which is nearly decompressed. 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 *Cholelithiasis. ? Progress Note: A&P Assessment and plan (1) ANDREEA (acute kidney injury): Status: Acute (2) CHF (congestive heart failure): Status: Acute (3) Bladder cancer: Status: Acute Plan right PCN tube if indicated for obstruction continue CBI Time Spent With Patient Time: Total time spent is greater than 50% in coordination of care (as documented) at patient's floor/unit and/or counseling patient: Progress Note: Quality Stroke Does the patient have a stroke diagnosis?: No
[2022-04-16 06:39] LABS: Basophils Percent Auto 0.3 % (0-2); Eosinophils Absolute Auto 0.1 X10*3/uL (0.0-0.4); Eosinophils Percent Auto 3.6 % (0-4); Imm Gran Abs Auto 0.04 X10*3/uL (0.00-0.03); Lymphocytes Absolute Auto 0.5 X10*3/uL (1.2-4.9); Lymphocytes Percent Auto 12.2 % (20-40); Mean Corpuscular HGB Conc 33.7 g/dl (31.0-36.0); Mean Corpuscular Hemoglobin 29.2 pg (27.0-33.0); Mean Corpuscular Volume 86.7 fL (80.0-98.0); Mean Platelet Volume 10.5 fL (9.4-12.4); Monocytes Absolute Auto 0.3 X10*3/uL (0.1-1.2); Monocytes Percent Auto 8.3 % (2-11); Neutrophils Absolute Auto 2.9 x10*3/uL (2.0-8.3); Neutrophils Percent Auto 74.6 % (45-73); Red Blood Count 2.33 X10*6/uL (4.60-5.80); Red Cell Distribution Width 16.8 % (11.0-16.0); White Blood Count 3.9 X10*3/uL (4.8-10.8)
[2022-04-16 07:08] LABS: Glucose, Whole Blood 157 mg/dL (60-115)
[2022-04-16 07:16] LABS: Hemoglobin 6.8 g/dl (14.0-18.0)
[2022-04-16 07:17] LABS: Hematocrit 20.2 % (42.0-52.0); Platelet Count 86 X10*3/uL (160-400)
[2022-04-16 07:25] LABS: Anion Gap 12 (12-20); Blood Urea Nitrogen 54 mg/dL (9-16); Carbon Dioxide 24 mmol/L (22-29); Chloride 112 mmol/L (96-108); Estimated Glomerular Filt Rate 16; Glucose Random 163 mg/dL (60-115); Potassium 3.5 mmol/L (3.3-5.1); Sodium 144 mmol/L (135-145)
[2022-04-16] MEDS: rifAXIMin 550 MG TABLET PO ×2 (08:03→20:31)
[2022-04-16] MEDS: Fat Emulsions 20% 250 ML 12 ML IVCONT (08:03)
[2022-04-16] MEDS: nadoloL 20 MG TABLET PO (08:03)
[2022-04-16] MEDS: amLODIPine Besylate 10 MG TABLET PO (08:03)
[2022-04-16] MEDS: 0.9 % Sodium Chloride Flush 3 ML SYRINGE IVFLUSH ×2 (08:05→23:42)
[2022-04-16 10:15] LABS: Albumin Level 2.5 g/dL (3.5-5.0); Magnesium 1.6 mg/dL (1.6-2.6); Phosphorus 3.4 mg/dL (2.7-4.5)
--- NOTE | 2022-04-16 10:44 | MHC.CLN ---
F/U REVIEWED LABS 25% PO INTAKE X1 MEAL PER DAY DIET RX: PUREED DIET WITH NT LIQ-APPROPRIATE PER CLIPPER AND TURNER PT RECEIVED D10AA4.25 AT 30ML/HR WITH 12 ML OF 20% LIPIDS PROVIDES 943 TOTAL KCALS (50% OF ESTIMATED KCALS NEEDS), 31G PROTEIN (.4G/KG) DISCUSSED WITH PA-PLAN TO D/C PPN TODAY AND POSSIBLE HOSPICE SERVICES; PHARMACY AWARE RECOMMEND ADDING ENSURE TID TO INCREASE KCALS SUPP TO PROVIDE 1050KCALS, 60G PROTEIN PT WILL NEED ASSISTANCE WITH ALL MEALS FOLLOWING WITH TEAM
--- NOTE | 2022-04-16 10:54 | MHC.SL.SWA ---
Speech Pathologist Impression: Oropharyngeal dysphagia Risk of Aspiration Due to: Medically Fragile Poor PO Intake Reduced Cognition Weak Cough Dysphasia Diet Status: No Change Liquid Consistency and Strategies for Safe Swallow: Liquid Intake Recommendation: [place] Thick Liquid Intake Strategies: Small Sips Ice Chips Ok Solid Food Consistency: Dietary Recommendations: Pureed (NDD1) Additional Modifications to Solid Foods: Patient will need 1-1 feeding with close monitor for swallow before presenting any additional food/liquid, strict monitor for aspiration signs (discontinue if patient is coughing on food/liquid, or if patient sounds wet/gurgly during meal). Do not attempt if patient is lethargic or non-compliant. Oral Medication Intake: Crushed with Puree Please contact the pharmacy regarding appropriate crushable or liquid drug formulations that are available whenever modified delivery is recommended. Compensatory Strategies and Precautions to be Taken for Safe Swallow: Sitting Upright (90 deg) No Straw Small Bites and Sips Alternate Liquids/Solids Rate of Ingestion Change Oral Check Supervision While Eating and Drinking for Safe Swallow: Total Assistance (1:1) Foods to Avoid: Sticky, congealed purees, or very thin consistencies (e.g. pureed soups). Add sauces/gravies and blend well. Swallowing Recommended Treatments: Compens. Strategy Educat. Recommendation for Speech: Outpatient Speech Therapy Inpatient Speech Therapy Air Hose Coupler Clinican/Clinical Fellow: Yes: Siddharhta Minaya Supervisory Statement: I have reviewed and agree with the student/clinical fellow's documentation: N/A Speech Language Pathologist: Florecita Ba M.A., CCC-FINANCIAL ANALYSIS ADVISOR
[2022-04-16 11:24] LABS: Glucose, Whole Blood 213 mg/dL (60-115)
--- NOTE | 2022-04-16 11:31 | MHC.CM.PN ---
Addendum entered by Laurel Godwin 04/16/22 15:24: The Hospice informational was done today. The Liason will get back to him with answers to a few questions. A message was received to call Clif/HCP/Nephew about facilities for Hospice. Clif stated that his uncle would be going under skilled not LTC . The names of the facilities that are following the patient were provided to Clif. He is not interested in [facility] or [facility]. He will look into [facility] this weekend. He stated that he will follow up with CM Tuesday. Original Note: Per MD rounds A Hospice informational referral is needed. An Informational Meeting request was referred to [facility]. Instructed LC to call nephew/HCP Clif Ramos. CM will continue to follow.
[2022-04-16] MEDS: Insulin Lispro 100 UNIT/ML 3 ML VIAL SUBCUT ×3 (11:50→20:43)
--- NOTE | 2022-04-16 16:05 | HO.PM.IMPN ---
Subjective Subjective Date of Service: 04/16/22 <VERONICA Benito - Last Filed: 04/16/22 17:22> 04/25/22 <Aguilar Palma MD - Last Filed: 04/25/22 08:59> Interval History: Seen in follow up for AMS interval history: Patient mentation improved today. He has no complaints, but does tell me to get out of his face . Has CBI running, this morning noted to have clots with drop in H/H to 6.8/20.2%. <VERONICA Benito - Last Filed: 04/16/22 17:22> Review of Systems Review of Systems: Yes Unobtainable due to mental condition <VERONICA Benito - Last Filed: 04/16/22 17:22> Physical Exam Vital Signs: Vital Signs: Last Vital Signs Temp 96.8 F 04/16/22 14:57 Pulse 61 04/16/22 14:57 Resp 16 04/16/22 14:57 BP 118/68 04/16/22 14:57 Pulse Ox 94 04/16/22 14:57 O2 Del Method 04/16/22 14:57 O2 Flow Rate 2 04/15/22 07:21 Oxygen Flow Rate 4 03/31/22 10:53 BMI result Body Mass Index 29.5 <VERONICA Benito - Last Filed: 04/16/22 17:22> Constitutional - Awake and Alert, No apparent distress Eyes - PERRLA, EOMI Cardiovascular - S1S2, RRR, No edema Respiratory - Normal lung expansion, Normal respiratory effort, No respiratory distress, CTA bilaterally Gastrointestinal - NT / ND; +BS; No rebound or guarding : Left nephrostomy tube in place. CBI running draining fruit punch output Extremities - no calf tenderness bilaterally, no swelling Skin - Warm/Dry Neurological - Alert & oriented to self Psychological - Appropriate affect <VERONICA Benito - Last Filed: 04/16/22 17:22> Objective Data Active Medications Acetaminophen (Acetaminophen 325 Mg Tablet) 650 mg PO Q6H PRN PRN Reason: Pain, Mild (Pain Scale 1-3) Last Admin: 04/09/22 21:49 Dose: 650 mg Documented By: JOVANNI Albuterol/Ipratropium (Albuterol/Iprat 2.5/0.5mg 3 Ml Ampul.Neb) 3 ml INHALE RQ4H PRN PRN Reason: sob Amlodipine Besylate (Amlodipine Besylate 10 Mg Tablet) 10 mg PO DAILY [facility]; Protocol Last Admin: 04/16/22 08:03 Dose: 10 mg Documented By: NATALIYA Aspirin (Aspirin 81 Mg Tab.Chew) 81 mg PO DAILY [facility] Last Admin: 04/06/22 09:04 Dose: Not Given Documented By: BIANCA Non-Admin Reason: See Note Atorvastatin Calcium (Atorvastatin Calcium 40 Mg Tablet) 40 mg PO DAILY [facility] Last Admin: 04/06/22 09:04 Dose: Not Given Documented By: BIANCA Non-Admin Reason: See Note Dextrose (Dextrose 50 % 25 Gm/50 Ml Syringe) 25 gm IVPUSH Q15M PRN; Protocol PRN Reason: per Hypoglycemia Standing Ord. Ferrous Sulfate (Ferrous Sulfate 324 Mg Tablet.) 324 mg PO DAILY [facility] Last Admin: 04/10/22 09:41 Dose: 324 mg Documented By: HAM Glucose (Glucose Gel 15 Gm Gel..Gram.) 15 gm PO Q15M PRN; Protocol PRN Reason: per Hypoglycemia Standing Ord. Thiamine HCl 100 mg/ Sodium (Chloride) 101 mls @ 208 mls/hr IV Q8H [facility] Last Infusion: 04/16/22 13:14 Dose: 0 mls/hr Documented By: NATALIYA Doxycycline Hyclate 100 mg/ (Sodium Chloride) 250 mls @ 166.67 mls/hr IV Q12H [facility] Last Admin: 04/16/22 15:25 Dose: 166.67 mls/hr Documented By: NATALIYA Piperacillin Sod/Tazobactam (Sod 2.25 gm/ Sodium Chloride) 50 mls @ 100 mls/hr IV Q6H [facility] Last Infusion: 04/16/22 14:36 Dose: 0 mls/hr Documented By: NATALIYA Magnesium Sulfate 5 meq/Calcium Gluconate 4.65 meq/Sodium Acetate 15 meq/ Sodium Phosphate 10 mmol/ Potassium Acetate 20 meq/ Multivitamins 14 ml/ Trace Metals 1.4 ml/Amino Acids/Electrolytes/Dextrose 720 mls @ 30 mls/hr IVCONT DAILY@1800 [facility] Last Infusion: 04/16/22 11:55 Dose: 0 mls/hr Documented By: NATALIYA Fat Emulsion Intravenous (Intralipid) 144 mls @ 12 mls/hr IVCONT BID@0600,1800 [facility] Last Infusion: 04/16/22 11:56 Dose: 0 mls/hr Documented By: NATALIYA Insulin Human Lispro (Insulin Lispro 100 Unit/Ml 3 Ml Vial) 0 unit SUBCUT QIDACHS [facility]; Protocol Last Admin: 04/16/22 11:50 Dose: 2 unit Documented By: NATALIYA Magnesium Oxide (Magnesium Oxide 400 Mg Tablet) 400 mg PO BID [facility] Last Admin: 04/11/22 09:00 Dose: Not Given Documented By: BECKY Non-Admin Reason: Hold per Melatonin (Melatonin 3 Mg Tablet) 6 mg PO BEDTIME PRN PRN Reason: insomnia Nadolol (Nadolol 20 Mg Tablet) 20 mg PO DAILY [facility]; Protocol Last Admin: 04/16/22 08:03 Dose: 20 mg Documented By: NATALIYA Olanzapine (Olanzapine 5 Mg Tablet) 5 mg PO BEDTIME [facility] Last Admin: 04/15/22 20:41 Dose: 5 mg Documented By: YANNA Ondansetron HCl (Ondansetron Hcl 4 Mg/2 Ml Vial) 4 mg IVPUSH Q6H PRN PRN Reason: Nausea Last Admin: 04/12/22 15:07 Dose: 4 mg Documented By: MOHAN Rifaximin (Rifaximin 550 Mg Tablet) 550 mg PO BID [facility] Last Admin: 04/16/22 08:03 Dose: 550 mg Documented By: NATALIYA Sodium Bicarbonate (Sodium Bicarbonate 650 Mg Tablet) 650 mg PO BID [facility] Last Admin: 04/11/22 09:00 Dose: Not Given Documented By: BECKY Non-Admin Reason: hold per Sodium Chloride (0.9 % Sodium Chloride Flush 3 Ml Syringe) 3 ml IVFLUSH QSHIFT [facility] Last Admin: 04/16/22 08:05 Dose: 3 ml Documented By: NATALIYA <VERONICA Benito - Last Filed: 04/16/22 17:22> Labs CBC & Chem 7: : 04/24/22 06:30 04/24/22 06:30 <VERONICA Benito - Last Filed: 04/16/22 17:22> Labs: Laboratory Results - last 24 hr 04/15/22 04/16/22 04/16/22 19:14 06:01 06:01 MCV 86.7 MCH 29.2 MCHC 33.7 RDW 16.8 H Plt Count 86 L D MPV 10.5 Immature Gran % (Auto) 1.0 H Neut % (Auto) 74.6 H Lymph % (Auto) 12.2 L Jefferson % (Auto) 8.3 Eos % (Auto) 3.6 Baso % (Auto) 0.3 Lymph # (Auto) 0.5 L Jefferson # (Auto) 0.3 Eos # (Auto) 0.1 Baso # (Auto) 0.0 Abs Immat Gran (auto) 0.04 H Absolute Neuts (auto) 2.9 Absolute Nucleated RBC 0.000 Nucleated RBC % (auto) 0.0 Anion Gap 12 Estim Creat Clear Calc 17.0 Estimated GFR 16 POC Glucose 218 H Random Glucose 163 H Calcium 8.0 L Phosphorus 3.4 Magnesium 1.6 Albumin 2.5 L Blood Type Antibody Screen Crossmatch 04/16/22 04/16/22 04/16/22 07:04 11:21 12:56 MCV MCH MCHC RDW Plt Count MPV Immature Gran % (Auto) Neut % (Auto) Lymph % (Auto) Jefferson % (Auto) Eos % (Auto) Baso % (Auto) Lymph # (Auto) Jefferson # (Auto) Eos # (Auto) Baso # (Auto) Abs Immat Gran (auto) Absolute Neuts (auto) Absolute Nucleated RBC Nucleated RBC % (auto) Anion Gap Estim Creat Clear Calc Estimated GFR POC Glucose 157 H 213 H Random Glucose Calcium Phosphorus Magnesium Albumin Blood Type A Positive Antibody Screen NEGATIVE Crossmatch See Detail <VERONICA Benito - Last Filed: 04/16/22 17:22> Microbiology Microbiology Results: Microbiology 04/14/22 11:15 Blood Culture - Preliminary Blood - Venous No growth after 48 hours. 04/14/22 11:15 Blood Culture - Preliminary Blood - Venous No growth after 48 hours. <VERONICA Benito - Last Filed: 04/16/22 17:22> Assessment and Plan (1) ANDREEA (acute kidney injury): Status: Acute <VERONICA Benito - Last Filed: 04/16/22 17:22> (2) Bladder cancer: Status: Acute <VERONICA Benito - Last Filed: 04/16/22 17:22> (3) Pneumonia: Status: Acute <VERONICA Benito - Last Filed: 04/16/22 17:22> (4) Gross hematuria: Status: Acute <VERONICA Benito - Last Filed: 04/16/22 17:22> Assessment and Plan: 76-year-old male presents unresponsive, hypotensive, hypothermic in the backdrop of active urinary sediment.? ?#acute hypoxemic respiratory failure,? possible secondary hypoalbuminemia ,possible liver disease /cirrosis ,less likely CHF, now possible pneumonia- seems to be resolved, currently 95% on RA echo : ef 55-60% On admission: chest x-ray-? Atelectasis /effusion, ABG reviewed- pH seems fine., ammonia? Fine. Continue suctioning prn,? chest physiotherapy Received Lasix for 1 day but seems like less likely CHF but more likely due to atelectasis/ hypoalbuminemia/now with pneumonia Hypoxemia improved significantly, now is awake and also eating somewhat. 04/11 CXR shwoing low lung cvolumes with similar small right sided pleural effusions and increased right >left patchy parenchymal airspace opacities reflective of atelectasis vs superimposed infection. Started on zosyn and doxycycline #toxic metabolic encephalopathy :? Multifactorial(electrolytic abnormalities/poor oral intake/ dementia/zyprexa,andreea on ckd)- mentation now baseline CT head negative,mri reviewed by neuro,EEG due to fairly severe diffuse background slowing consistent with a diffuse encephalopathic process. neuro saw the patient-encephalopathy Possibly? related to multifactorial basis with? hypoxia, metabolic abnormalities and baseline dementia supportive care. -Resume scheduled zyprexa per psychiatry -Treat for pneumonia as below. Recheck for UTI with UA/UC given ongoing encephalopathy and hypothermia -Abdomen also noted to be distended- check abd/pelvis CT #Acute pneumonia-resolved -04/11 CXR shwoing low lung cvolumes with similar small right sided pleural effusions and increased right >left patchy parenchymal airspace opacities reflective of atelectasis vs superimposed infection. Started on zosyn and doxycycline -Completed 5 days zosyn and doxyclycine. D/c'd #hx of HHC s/p ablation ,as well as hx of bladder cancer -Did not tolerate palliative immunotherapy. Follows with outpt urology [facility] who may be recommending palliative radiation therapy to stop bleeding/clots. Not a surgical candidate. -supportive care. -Continue CBI for hematuria. Required 3 units PRBC total during admission. Clots recurred overnight 04/15- requiring irrigation by nursing and urology. Continue CBI WO, now running clear -H/H dropped to 6.8/20.2%. Discussions around hospice have been initiated with nephew, but he is not ready to make the decision and would like patient transfused. Discussed that hematuria will be a recurrent issue and continuing transfusions will not resolve any long tterm issue. Hospice referral requested. 1 unit PRBC ordered -Family declines right sided nephrostomy tube -Follow CBC #UTI -resolved following 7 days abx. -UA/UC repeated 04/14 due to recurrent hypothermia with negative cultures. # Intermittent hypothermia -Likely secondary to poor nutrition. Continue PPM -Patient with subclinical hypothyroidism, not likely contributory -Olanzepine held for 4 days with recurrence of hypothermia. Not likely related to antipsychotis use -Not meeting other SIRS criteria, less likely related to infection, but continue treating pneumonia as above #Chronic normocytic anemia/thrombocytopenia -Multifactorial -H/H and PLT stable -Transfuse if hgb <7 -follow daily CBCs #Insulin dependent type 2 diabetes- glucsoe levels reasonably controlled -Continue PPN/diabetic diet -POC glucose -humalog SS #Dementia unspecified with agitated features -evaluated by pscyhiatry- olanzepine resumed, continue 5mg nightly ?#failure to thrive/hypoalbuminemia:? patient is not eating well for several weeks. Tolerating one PO meal daily when given by nephew, otherwise still PPN. -Olanzepine resumed last night. Patient more oriented, hopefully with less paranoia. Encourage PO intake for meals -PPN held -No TPN per family (nephew, Clif, HCP) -seen by speech and swallow -added diet. diet can be tailered as per menatl status. #andreea on ckd(stage unclear ,per family cr is between 2-3): multifactorial -ftt/bladder canncer ,hematuria cr trending down as per family his basline cr is between 2-3 continue ppn,hold nephrotoxic meds ,iv hydration -Per nephrology continue LR, avoid nephrotoxic agents, dc octreotide -Dc NaHCO3 is CO2<24. -Follow BMP #Hepatic cirrhosis -Rifampin/nadolol has been on hold 2/2 mental status. Resume nadolol and rifampin d/w Gi -less likely hepatorenal Nephrology following- andreea seems multifactorial(please see nephro note prerenal vs obstructive ) -received bicarb drip, bicarb seems to be improving, switched to nectar drinker now. also nephrostomy is drainin ok' has cbi due to hematuria d/w nephro /urology in detail and further with patient hcp- angus reddy, he not decided yet about nephrostomy ( need of right side) ?above management discussed with patient family in detail length they understand and in agreement with the above , healthcare proxy Mr. Menezes- they understand the patient prognosis is poor, currently continue conservative management,Mr menezes -does not wnat tube feeding or HD. Further discussed prognosis with nephewClif, this afternoon. He wishes for palliative therapy for his uncle, but is not quite ready to make the decision to move to hospice. Referral is placed for further discussion. Nephew does wish for blood transfusion today knows this will only improve anemia short term and hematuria will recur given bladder cancer. He has had discussions [facility] urologist about palliative radiation therapy to help stop bleeding, unsure if this can take place with hospice. Referral to hospice for information placed by CM. PPN held. Encourage PO feeds. Full code Vena dynes boots-due to? Anemia/thrombocytopenia ongoing hospitalization for treatment:multiple issues ,acute hypoxemic respiratory failure multifactorial,FTT, toxic metabolic encephalopathy -as above. <VERONICA Benito - Last Filed: 04/16/22 17:22> Quality Stroke Does the patient have a stroke diagnosis?: No <VERONICA Benito - Last Filed: 04/16/22 17:22> VTE Prior VTE?: No <VERONICA Benito - Last Filed: 04/16/22 17:22> VTE Risk Level:: Medical - moderate - high <VERONICA Benito - Last Filed: 04/16/22 17:22> VTE Device Contraindication: N/A - Device Ordered <VERONICA Benito - Last Filed: 04/16/22 17:22> VTE Drug Contraindication: Treatment Not Indicated <VERONICA Benito - Last Filed: 04/16/22 17:22>
[2022-04-16 16:25] LABS: Glucose, Whole Blood 267 mg/dL (60-115)
[2022-04-16 19:57] LABS: Glucose, Whole Blood 213 mg/dL (60-115)
[2022-04-16] MEDS: OLANZapine 5 MG TABLET PO (20:31)
[2022-04-16] MEDS: Thiamine HCL 100 MG in 0.9 % Sodium Chloride 100 ML 200 MG IV (20:45)
[2022-04-17 03:28] VITALS: BP 121/57; PULSE 104; RESP 18; TEMP 36.6; O2SAT 97
[2022-04-17] MEDS: Thiamine HCL 100 MG in 0.9 % Sodium Chloride 100 ML 208 MG IV ×3 (04:06→20:25)
[2022-04-17 06:31] LABS: MANUAL DIFF FLAG NO
[2022-04-17 06:36] LABS: Basophils Percent Auto 0.4 % (0-2); Eosinophils Absolute Auto 0.2 X10*3/uL (0.0-0.4); Eosinophils Percent Auto 3.1 % (0-4); Hematocrit 23.8 % (42.0-52.0); Hemoglobin 8.1 g/dl (14.0-18.0); Imm Gran Abs Auto 0.07 X10*3/uL (0.00-0.03); Imm Gran Pct Auto 1.5 % (0.0-0.4); Lymphocytes Absolute Auto 0.5 X10*3/uL (1.2-4.9); Lymphocytes Percent Auto 9.8 % (20-40); Mean Corpuscular Hemoglobin 28.3 pg (27.0-33.0); Mean Corpuscular Volume 83.2 fL (80.0-98.0); Mean Platelet Volume 10.7 fL (9.4-12.4); Monocytes Absolute Auto 0.4 X10*3/uL (0.1-1.2); Monocytes Percent Auto 8.4 % (2-11); Neutrophils Absolute Auto 3.7 x10*3/uL (2.0-8.3); Neutrophils Percent Auto 76.8 % (45-73); Red Blood Count 2.86 X10*6/uL (4.60-5.80); Red Cell Distribution Width 15.6 % (11.0-16.0); White Blood Count 4.8 X10*3/uL (4.8-10.8)
[2022-04-17 06:42] LABS: Platelet Count 84 X10*3/uL (160-400)
[2022-04-17 07:07] LABS: Anion Gap 14 (12-20); Blood Urea Nitrogen 52 mg/dL (9-16); Calcium 8.1 mg/dL (8.4-10.2); Carbon Dioxide 20 mmol/L (22-29); Chloride 114 mmol/L (96-108); Creatinine Clr Calc Pharmacy 18.3; Estimated Glomerular Filt Rate 18; Glucose Random 102 mg/dL (60-115); Sodium 144 mmol/L (135-145)
[2022-04-17 07:15] LABS: Glucose, Whole Blood 100 mg/dL (60-115)
[2022-04-17 10:57] VITALS: BP 152/89; PULSE 64; RESP 18; TEMP 36.3; O2SAT 95
--- NOTE | 2022-04-17 11:06 | P.PNIM_ITS ---
Subjective Subjective Date of Service: 04/17/22 <VERONICA Benito - Last Filed: 04/17/22 11:16> 04/25/22 <Aguilar Palma MD - Last Filed: 04/25/22 08:59> Interval History: Seen in follow up for AMS interval history: Patient resting comfortably in bed. Has CBI running, output light pink, no clots noted. H/H improved. <VERONICA Benito - Last Filed: 04/17/22 11:16> Review of Systems Review of Systems: Yes Unobtainable due to mental condition <VERONICA Benito - Last Filed: 04/17/22 11:16> Physical Exam Vital Signs: Vital Signs: Last Vital Signs Temp 97.3 F 04/17/22 10:57 Pulse 64 04/17/22 10:57 Resp 18 04/17/22 10:57 BP 152/89 H 04/17/22 10:57 Pulse Ox 95 04/17/22 10:57 O2 Del Method 04/17/22 10:57 O2 Flow Rate 3 04/17/22 10:57 Oxygen Flow Rate 4 03/31/22 10:53 BMI result Body Mass Index 29.5 <VERONICA Benito - Last Filed: 04/17/22 11:16> Constitutional - Awake and Alert, No apparent distress Eyes - PERRLA, EOMI Cardiovascular - S1S2, RRR, No edema Respiratory - Normal lung expansion, Normal respiratory effort, No respiratory distress, CTA bilaterally Gastrointestinal - NT / ND; +BS; No rebound or guarding Extremities - no calf tenderness bilaterally, no swelling Skin - Warm/Dry Neurological - Alert & oriented to self Psychological - Appropriate affect <VERONICA Benito - Last Filed: 04/17/22 11:16> Objective Data Active Medications Acetaminophen (Acetaminophen 325 Mg Tablet) 650 mg PO Q6H PRN PRN Reason: Pain, Mild (Pain Scale 1-3) Last Admin: 04/09/22 21:49 Dose: 650 mg Documented By: JOVANNI Albuterol/Ipratropium (Albuterol/Iprat 2.5/0.5mg 3 Ml Ampul.Neb) 3 ml INHALE RQ4H PRN PRN Reason: sob Amlodipine Besylate (Amlodipine Besylate 10 Mg Tablet) 10 mg PO DAILY REPLACED BY [facility]; Protocol Last Admin: 04/16/22 08:03 Dose: 10 mg Documented By: NATALIYA Aspirin (Aspirin 81 Mg Tab.Chew) 81 mg PO DAILY REPLACED BY [facility] Last Admin: 04/06/22 09:04 Dose: Not Given Documented By: BIANCA Non-Admin Reason: See Note Atorvastatin Calcium (Atorvastatin Calcium 40 Mg Tablet) 40 mg PO DAILY REPLACED BY [facility] Last Admin: 04/06/22 09:04 Dose: Not Given Documented By: BIANCA Non-Admin Reason: See Note Dextrose (Dextrose 50 % 25 Gm/50 Ml Syringe) 25 gm IVPUSH Q15M PRN; Protocol PRN Reason: per Hypoglycemia Standing Ord. Ferrous Sulfate (Ferrous Sulfate 324 Mg Tablet.Dr) 324 mg PO DAILY REPLACED BY [facility] Last Admin: 04/10/22 09:41 Dose: 324 mg Documented By: HAM Glucose (Glucose Gel 15 Gm Gel..Gram.) 15 gm PO Q15M PRN; Protocol PRN Reason: per Hypoglycemia Standing Ord. Thiamine HCl 100 mg/ Sodium (Chloride) 101 mls @ 208 mls/hr IV Q8H REPLACED BY [facility] Last Infusion: 04/17/22 04:42 Dose: 0 mls/hr Documented By: SINAN Magnesium Sulfate 5 meq/Calcium Gluconate 4.65 meq/Sodium Acetate 15 meq/ Sodium Phosphate 10 mmol/ Potassium Acetate 20 meq/ Multivitamins 14 ml/ Trace Metals 1.4 ml/Amino Acids/Electrolytes/Dextrose 720 mls @ 30 mls/hr IVCONT DAILY@1800 REPLACED BY [facility] Last Infusion: 04/16/22 11:55 Dose: 0 mls/hr Documented By: NATALIYA Fat Emulsion Intravenous (Intralipid) 144 mls @ 12 mls/hr IVCONT BID@0600,1800 REPLACED BY [facility] Last Infusion: 04/16/22 11:56 Dose: 0 mls/hr Documented By: NATALIYA Insulin Human Lispro (Insulin Lispro 100 Unit/Ml 3 Ml Vial) 0 unit SUBCUT QIDACHS REPLACED BY [facility]; Protocol Last Admin: 04/17/22 08:14 Dose: Not Given Documented By: CHIKA Non-Admin Reason: No Insulin Coverage Magnesium Oxide (Magnesium Oxide 400 Mg Tablet) 400 mg PO BID REPLACED BY [facility] Last Admin: 04/11/22 09:00 Dose: Not Given Documented By: BECKY Non-Admin Reason: Hold per Melatonin (Melatonin 3 Mg Tablet) 6 mg PO BEDTIME PRN PRN Reason: insomnia Nadolol (Nadolol 20 Mg Tablet) 20 mg PO DAILY REPLACED BY [facility]; Protocol Last Admin: 04/16/22 08:03 Dose: 20 mg Documented By: NATALIYA Olanzapine (Olanzapine 5 Mg Tablet) 5 mg PO BEDTIME REPLACED BY [facility] Last Admin: 04/16/22 20:31 Dose: 5 mg Documented By: SINAN Ondansetron HCl (Ondansetron Hcl 4 Mg/2 Ml Vial) 4 mg IVPUSH Q6H PRN PRN Reason: Nausea Last Admin: 04/12/22 15:07 Dose: 4 mg Documented By: MOHAN Rifaximin (Rifaximin 550 Mg Tablet) 550 mg PO BID REPLACED BY [facility] Last Admin: 04/16/22 20:31 Dose: 550 mg Documented By: SINAN Sodium Bicarbonate (Sodium Bicarbonate 650 Mg Tablet) 650 mg PO BID REPLACED BY [facility] Last Admin: 04/11/22 09:00 Dose: Not Given Documented By: BECKY Non-Admin Reason: hold per Sodium Chloride (0.9 % Sodium Chloride Flush 3 Ml Syringe) 3 ml IVFLUSH QSHIFT REPLACED BY [facility] Last Admin: 04/16/22 23:42 Dose: 3 ml Documented By: SINAN <VERONICA Benito - Last Filed: 04/17/22 11:16> Labs CBC & Chem 7: : 04/24/22 06:30 04/24/22 06:30 <VERONICA Benito - Last Filed: 04/17/22 11:16> Labs: Laboratory Results - last 24 hr 04/16/22 04/16/22 04/16/22 11:21 12:56 16:20 MCV MCH MCHC RDW Plt Count MPV Immature Gran % (Auto) Neut % (Auto) Lymph % (Auto) [place] % (Auto) Eos % (Auto) Baso % (Auto) Lymph # (Auto) [place] # (Auto) Eos # (Auto) Baso # (Auto) Abs Immat Gran (auto) Absolute Neuts (auto) Absolute Nucleated RBC Nucleated RBC % (auto) Anion Gap Estim Creat Clear Calc Estimated GFR POC Glucose 213 H 267 H Random Glucose Calcium Blood Type A Positive Antibody Screen NEGATIVE Crossmatch See Detail 04/16/22 04/17/22 04/17/22 19:53 05:59 05:59 MCV 83.2 MCH 28.3 MCHC 34.0 RDW 15.6 Plt Count 84 L MPV 10.7 Immature Gran % (Auto) 1.5 H Neut % (Auto) 76.8 H Lymph % (Auto) 9.8 L [place] % (Auto) 8.4 Eos % (Auto) 3.1 Baso % (Auto) 0.4 Lymph # (Auto) 0.5 L [place] # (Auto) 0.4 Eos # (Auto) 0.2 Baso # (Auto) 0.0 Abs Immat Gran (auto) 0.07 H Absolute Neuts (auto) 3.7 Absolute Nucleated RBC 0.000 Nucleated RBC % (auto) 0.0 Anion Gap 14 Estim Creat Clear Calc 18.3 Estimated GFR 18 POC Glucose 213 H Random Glucose 102 Calcium 8.1 L Blood Type Antibody Screen Crossmatch 04/17/22 07:12 MCV MCH MCHC RDW Plt Count MPV Immature Gran % (Auto) Neut % (Auto) Lymph % (Auto) [place] % (Auto) Eos % (Auto) Baso % (Auto) Lymph # (Auto) [place] # (Auto) Eos # (Auto) Baso # (Auto) Abs Immat Gran (auto) Absolute Neuts (auto) Absolute Nucleated RBC Nucleated RBC % (auto) Anion Gap Estim Creat Clear Calc Estimated GFR POC Glucose 100 Random Glucose Calcium Blood Type Antibody Screen Crossmatch <VERONICA Benito - Last Filed: 04/17/22 11:16> Microbiology Microbiology Results: Microbiology 04/14/22 11:15 Blood Culture - Preliminary Blood - Venous No growth after 48 hours. 04/14/22 11:15 Blood Culture - Preliminary Blood - Venous No growth after 48 hours. <VERONICA Benito - Last Filed: 04/17/22 11:16> Assessment and Plan (1) ANDREEA (acute kidney injury): Status: Acute <VERONICA Benito - Last Filed: 04/17/22 11:16> (2) Bladder cancer: Status: Acute <VERONICA Benito - Last Filed: 04/17/22 11:16> (3) Pneumonia: Status: Acute <VERONICA Benito - Last Filed: 04/17/22 11:16> (4) Gross hematuria: Status: Acute <VERONICA Benito - Last Filed: 04/17/22 11:16> Assessment and Plan: 76-year-old male presents unresponsive, hypotensive, hypothermic in the backdrop of active urinary sediment.? ?#acute hypoxemic respiratory failure,? possible secondary hypoalbuminemia ,possible liver disease /cirrosis ,less likely CHF, now possible pneumonia- seems to be resolved, currently 95% on RA -echo : ef 55-60% On admission: chest x-ray-? Atelectasis /effusion, ABG reviewed- pH seems fine., ammonia? Fine. Continue suctioning prn,? chest physiotherapy Received Lasix for 1 day but seems like less likely CHF but more likely due to atelectasis/ hypoalbuminemia/now with pneumonia 04/11 CXR shwoing low lung cvolumes with similar small right sided pleural effusions and increased right >left patchy parenchymal airspace opacities reflective of atelectasis vs superimposed infection. Started on zosyn and doxycycline, completed 5 days treatment #toxic metabolic encephalopathy :? Multifactorial(electrolytic abnormalities/poor oral intake/ dementia/zyprexa,andreea on ckd)- mentation now baseline CT head negative,mri reviewed by neuro,EEG due to fairly severe diffuse background slowing consistent with a diffuse encephalopathic process. neuro saw the patient-encephalopathy Possibly? related to multifactorial basis with? hypoxia, metabolic abnormalities and baseline dementia supportive care. -Resume scheduled zyprexa per psychiatry -Treat for pneumonia as below. Recheck for UTI with UA/UC given ongoing encephalopathy and hypothermia -Abdomen also noted to be distended- check abd/pelvis CT #Acute pneumonia-resolved -04/11 CXR shwoing low lung cvolumes with similar small right sided pleural effusions and increased right >left patchy parenchymal airspace opacities reflective of atelectasis vs superimposed infection. Started on zosyn and doxycycline -Completed 5 days zosyn and doxyclycine. D/c'd #hx of HHC s/p ablation ,as well as hx of bladder cancer -Did not tolerate palliative immunotherapy. Follows with outpt urology [facility] who may be recommending palliative radiation therapy to stop bleeding/clots. Not a surgical candidate. -supportive care. -Continue CBI for hematuria. Required 3 units PRBC total during admission. Clots recurred overnight 04/15- requiring irrigation by nursing and urology. Continue CBI WO, now with light pink output, no clots -H/H dropped to 6.8/20.2%. Discussions around hospice have been initiated with nephew, but he is not ready to make the decision and would like patient transfused. Discussed that hematuria will be a recurrent issue and continuing transfusions will not resolve any long tterm issue. Hospice referral requested. 1 unit PRBC received. H/H improved to 8.1/23.8% this am -Family declines right sided nephrostomy tube -Follow CBC #UTI -resolved following 7 days abx. -UA/UC repeated 04/14 due to recurrent hypothermia with negative cultures. # Intermittent hypothermia -Likely secondary to poor nutrition, now eating better -Patient with subclinical hypothyroidism, not likely contributory -Olanzepine held for 4 days with recurrence of hypothermia. Not likely related to antipsychotis use -Not meeting other SIRS criteria, less likely related to infection -Maru oshea prn #Chronic normocytic anemia/thrombocytopenia -Multifactorial -H/H and PLT stable -Transfuse if hgb <7 -follow daily CBCs #Insulin dependent type 2 diabetes- glucsoe levels reasonably controlled -Continue PPN/diabetic diet -POC glucose -humalog SS #Dementia unspecified with agitated features -evaluated by pscyhiatry- olanzepine resumed, continue 5mg nightly ?#failure to thrive/hypoalbuminemia:? patient is not eating well for several weeks. Tolerating one PO meal daily when given by nephew, otherwise still PPN. -Olanzepine resumed last night. Patient more oriented, hopefully with less paranoia. Encourage PO intake for meals -PPN discontinued, eating better -No TPN per family (nephew, Clif, HCP) -seen by speech and swallow -added diet. diet can be tailered as per menatl status. #andreea on ckd(stage unclear ,per family cr is between 2-3): multifactorial - ftt/bladder canncer ,hematuria cr trending down as per family his basline cr is between 2-3 hold nephrotoxic meds ,iv hydration -Per nephrology continue LR, avoid nephrotoxic agents, dc octreotide -Resume NaHCO3, CO2<24 -Follow BMP #Hepatic cirrhosis -Rifampin/nadolol has been on hold 2/2 mental status. Resume nadolol and rifampin d/w Gi - ANDREEA less likely hepatorenal. As above ?above management discussed with patient family in detail length they understand and in agreement with the above , healthcare proxy Mr. Menezes- they understand the patient prognosis is poor, currently continue conservative management,Mr menezes -does not wnat tube feeding or HD. Further discussed prognosis with nephewClif, this afternoon. He wishes for palliative therapy for his uncle, but is not quite ready to make the decision to move to hospice. Referral is placed for further discussion. Nephew does wish for blood transfusion today knows this will only improve anemia short term and hematuria will recur given bladder cancer. [facility] to help stop bleeding, unsure if this can take place with hospice. Referral to hospice for information placed by CM. PPN discontinued. Encourage PO feeds. Full code Vena dynes boots-due to? Anemia/thrombocytopenia ongoing hospitalization for treatment:multiple issues ,acute hypoxemic respiratory failure multifactorial,FTT transitioning off PPN, toxic metabolic encephalopathy, ongoing hematuria requiring transfusion and CBI <VERONICA Benito - Last Filed: 04/17/22 11:16> Time Spent With Patient Time: Total time managing care of this patient today ____ minutes. <VERONICA Benito - Last Filed: 04/17/22 11:16> Quality Stroke Does the patient have a stroke diagnosis?: No <VERONICA Benito - Last Filed: 04/17/22 11:16> VTE Prior VTE?: No <VERONICA Benito - Last Filed: 04/17/22 11:16> VTE Risk Level:: Medical - moderate - high <VERONICA Benito Last Filed: 04/17/22 11:16> VTE Device Contraindication: N/A - Device Ordered <VERONICA Benito Last Filed: 04/17/22 11:16> VTE Drug Contraindication: Treatment Not Indicated <VERONICA Benito Last Filed: 04/17/22 11:16>
[2022-04-17] MEDS: nadoloL 20 MG TABLET PO (11:19)
[2022-04-17] MEDS: rifAXIMin 550 MG TABLET PO ×2 (11:19→20:25)
[2022-04-17] MEDS: 0.9 % Sodium Chloride Flush 3 ML SYRINGE IVFLUSH ×2 (11:19→17:36)
[2022-04-17] MEDS: amLODIPine Besylate 10 MG TABLET PO (11:19)
[2022-04-17 11:45] LABS: Glucose, Whole Blood 116 mg/dL (60-115)
--- NOTE | 2022-04-17 12:13 | PM.PNNEP ---
Subjective Subjective Date of Service: 04/17/22 Interval history: Seen in follow up for ANDREEA on CKD Physical Exam Vital Signs: Vital Signs: Last Vital Signs Temp 97.3 F 04/17/22 10:57 Pulse 64 04/17/22 10:57 Resp 18 04/17/22 10:57 BP 152/89 H 04/17/22 10:57 Pulse Ox 95 04/17/22 10:57 O2 Del Method 04/17/22 10:57 O2 Flow Rate 3 04/17/22 10:57 Oxygen Flow Rate 4 03/31/22 10:53 BMI result Body Mass Index 29.5 Const: General: no acute distress and ill appearing Orientation/consciousness: oriented to person and oriented to place Neck: Other: supple Chest: Other: clear Cardio: Other: RRR Neuro: General: oriented to person and oriented to place Extrem: General: Yes normal to inspection Objective Data Labs CBC & Chem 7: 04/17/22 05:59 04/17/22 05:59 Labs: Laboratory Results - last 24 hr 04/16/22 04/16/22 04/16/22 12:56 16:20 19:53 WBC RBC Hgb Hct MCV MCH MCHC RDW Plt Count MPV Immature Gran % (Auto) Neut % (Auto) Lymph % (Auto) [place] % (Auto) Eos % (Auto) Baso % (Auto) Lymph # (Auto) [place] # (Auto) Eos # (Auto) Baso # (Auto) Abs Immat Gran (auto) Absolute Neuts (auto) Absolute Nucleated RBC Nucleated RBC % (auto) Sodium Potassium Chloride Carbon Dioxide Anion Gap BUN Creatinine Estim Creat Clear Calc Estimated GFR POC Glucose 267 H 213 H Random Glucose Calcium Blood Type A Positive Antibody Screen NEGATIVE Crossmatch See Detail 04/17/22 04/17/22 04/17/22 05:59 05:59 07:12 WBC 4.8 RBC 2.86 L D Hgb 8.1 L Hct 23.8 L MCV 83.2 MCH 28.3 MCHC 34.0 RDW 15.6 Plt Count 84 L MPV 10.7 Immature Gran % (Auto) 1.5 H Neut % (Auto) 76.8 H Lymph % (Auto) 9.8 L [place] % (Auto) 8.4 Eos % (Auto) 3.1 Baso % (Auto) 0.4 Lymph # (Auto) 0.5 L [place] # (Auto) 0.4 Eos # (Auto) 0.2 Baso # (Auto) 0.0 Abs Immat Gran (auto) 0.07 H Absolute Neuts (auto) 3.7 Absolute Nucleated RBC 0.000 Nucleated RBC % (auto) 0.0 Sodium 144 Potassium 4.0 Chloride 114 H Carbon Dioxide 20 L Anion Gap 14 BUN 52 H Creatinine 3.41 H Estim Creat Clear Calc 18.3 Estimated GFR 18 POC Glucose 100 Random Glucose 102 Calcium 8.1 L Blood Type Antibody Screen Crossmatch 04/17/22 11:41 WBC RBC Hgb Hct MCV MCH MCHC RDW Plt Count MPV Immature Gran % (Auto) Neut % (Auto) Lymph % (Auto) [place] % (Auto) Eos % (Auto) Baso % (Auto) Lymph # (Auto) [place] # (Auto) Eos # (Auto) Baso # (Auto) Abs Immat Gran (auto) Absolute Neuts (auto) Absolute Nucleated RBC Nucleated RBC % (auto) Sodium Potassium Chloride Carbon Dioxide Anion Gap BUN Creatinine Estim Creat Clear Calc Estimated GFR POC Glucose 116 H Random Glucose Calcium Blood Type Antibody Screen Crossmatch Microbiology Microbiology Results: Microbiology 04/14/22 11:15 Blood - Venous Blood Culture - Preliminary No growth after 48 hours. 04/14/22 11:15 Blood - Venous Blood Culture - Preliminary No growth after 48 hours. 04/14/22 00:00 Urine clean catch - Urine villavicencio top Urine Culture - Final No growth. 03/31/22 15:07 Blood - Venous Blood Culture - Final No growth after 5 days. 03/31/22 15:07 Blood - Venous Blood Culture - Final No growth after 5 days. 03/31/22 00:00 Urine Other - Nephrostomy Urine Culture - Final Staphylococcus cohnii ssp urea 03/31/22 15:02 Blood - Venous Blood Culture - Final 03/31/22 15:02 Blood - Venous Blood Culture - Final Procedures Date of Service Date of Service: 04/17/22 Assessment & Plan Assessment and plan (1) ANDREEA (acute kidney injury): Status: Acute (2) Gross hematuria: Status: Acute (3) Diabetes type 2, controlled: Status: Acute (4) Sepsis: Status: Acute (5) Obstructive nephropathy: Status: Acute Plan 1) ANDREEA (acute kidney injury): ?Status:?Acute ?Assessment and Plan: 1. Acute kidney injury superimposed on chronic kidney disease. ?The chronic kidney disease, most likely due to diabetic nephropathy, although he has not undergone a biopsy.? The superimposed acute kidney injury is most likely due to obstructive uropathy based on the recent imaging studies.? There was a component of volume depletion. 2. Severe anemia, which is multifactorial. 3. Hyperchloremic metabolic acidosis in the setting of renal failure. 4. Bladder carcinoma with obstructive uropathy, status post left PCN. 5. Cirrhosis of the liver. 6. History of hypertension.? He has had multiple episodes of hypotension. ? RECOMMENDATIONS:? Urology f/u for ongoing bladder Ca? and hematuria l continue to hold the amlodipine due to low BP ?Transfuse as needed to keep HB > 7.0 Gradual? improvement in renal function with IVF No absolute indication for dialysis Continue to avoid nephrotoxic agents including NSAIDs.? Can DC NaHOC3 if tCO2 > 24 Dr. Pena D/w Family(nephew)? 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 Progress Note: Quality Stroke Does the patient have a stroke diagnosis?: No
[2022-04-17 15:29] VITALS: BP 139/84; PULSE 56; RESP 18; TEMP 36.1; O2SAT 95
[2022-04-17 15:59] LABS: Glucose, Whole Blood 195 mg/dL (60-115)
[2022-04-17 19:25] VITALS: BP 137/73; PULSE 60; RESP 18; TEMP 35.9; O2SAT 96
[2022-04-17 19:44] LABS: Glucose, Whole Blood 271 mg/dL (60-115)
[2022-04-17] MEDS: Sodium Bicarbonate 650 MG TABLET PO (20:25)
[2022-04-17] MEDS: OLANZapine 5 MG TABLET PO (20:25)
[2022-04-17] MEDS: Insulin Lispro 100 UNIT/ML 3 ML VIAL SUBCUT (20:25)
[2022-04-18] VITALS: BP 162/77; PULSE 56; RESP 20; TEMP 36; O2SAT 96
[2022-04-18] MEDS: 0.9 % Sodium Chloride Flush 3 ML SYRINGE IVFLUSH (00:42)
[2022-04-18 03:47] VITALS: BP 161/76; PULSE 53; RESP 20; TEMP 35.8; O2SAT 96
[2022-04-18] MEDS: Thiamine HCL 100 MG in 0.9 % Sodium Chloride 100 ML 208 MG IV (03:47)
[2022-04-18 07:37] VITALS: BP 180/98; PULSE 55; RESP 18; TEMP 36.1; O2SAT 100
[2022-04-18 07:40] LABS: Glucose, Whole Blood 145 mg/dL (60-115)
[2022-04-18] MEDS: amLODIPine Besylate 10 MG TABLET PO (08:11)
[2022-04-18] MEDS: Sodium Bicarbonate 650 MG TABLET PO ×2 (08:11→20:48)
[2022-04-18] MEDS: rifAXIMin 550 MG TABLET PO ×2 (08:11→20:48)
[2022-04-18] MEDS: nadoloL 20 MG TABLET PO (08:11)
[2022-04-18] MEDS: Thiamine HCL 100 MG TABLET PO (08:15)
[2022-04-18 08:48] LABS: MANUAL DIFF FLAG NO
[2022-04-18 08:50] LABS: Basophils Percent Auto 0.2 % (0-2); Eosinophils Absolute Auto 0.1 X10*3/uL (0.0-0.4); Eosinophils Percent Auto 3.2 % (0-4); Hematocrit 26.5 % (42.0-52.0); Hemoglobin 9.1 g/dl (14.0-18.0); Imm Gran Abs Auto 0.04 X10*3/uL (0.00-0.03); Imm Gran Pct Auto 0.9 % (0.0-0.4); Lymphocytes Absolute Auto 0.6 X10*3/uL (1.2-4.9); Lymphocytes Percent Auto 12.9 % (20-40); Mean Corpuscular HGB Conc 34.3 g/dl (31.0-36.0); Mean Corpuscular Hemoglobin 28.6 pg (27.0-33.0); Mean Corpuscular Volume 83.3 fL (80.0-98.0); Mean Platelet Volume 10.1 fL (9.4-12.4); Monocytes Absolute Auto 0.4 X10*3/uL (0.1-1.2); Monocytes Percent Auto 9.9 % (2-11); Neutrophils Absolute Auto 3.2 x10*3/uL (2.0-8.3); Neutrophils Percent Auto 72.9 % (45-73); Red Blood Count 3.18 X10*6/uL (4.60-5.80); Red Cell Distribution Width 15.8 % (11.0-16.0); White Blood Count 4.4 X10*3/uL (4.8-10.8)
[2022-04-18 09:20] LABS: Platelet Count 86 X10*3/uL (160-400)
[2022-04-18 09:24] LABS: Anion Gap 13 (12-20); Blood Urea Nitrogen 35 mg/dL (9-16); Calcium 8.3 mg/dL (8.4-10.2); Carbon Dioxide 22 mmol/L (22-29); Chloride 114 mmol/L (96-108); Creatinine Clr Calc Pharmacy 33.1; Estimated Glomerular Filt Rate 35; Glucose Random 184 mg/dL (60-115); Sodium 145 mmol/L (135-145)
[2022-04-18 11:35] VITALS: BP 138/72; PULSE 53; RESP 18; TEMP 36.1; O2SAT 95
[2022-04-18 11:52] LABS: Glucose, Whole Blood 256 mg/dL (60-115)
[2022-04-18] MEDS: Insulin Lispro 100 UNIT/ML 3 ML VIAL SUBCUT (12:29)
[2022-04-18 15:16] VITALS: BP 131/62; PULSE 52; RESP 18; TEMP 35.7; O2SAT 96
[2022-04-18 15:45] LABS: Glucose, Whole Blood 173 mg/dL (60-115)
--- NOTE | 2022-04-18 16:31 | HO.PM.IMPN ---
Subjective Subjective Date of Service: 04/18/22 <VERONICA Benito - Last Filed: 04/18/22 16:36> 04/25/22 <Aguilar Palma MD - Last Filed: 04/25/22 08:59> Interval History: Seen in follow up for AMS interval history: Patient resting comfortably in bed. Has CBI running, output clear. H/H improved. Asking for water and drank two cups and ensure with me. <VERONICA Benito - Last Filed: 04/18/22 16:36> Review of Systems Review of Systems: Yes Unobtainable due to mental condition <VERONICA Benito - Last Filed: 04/18/22 16:36> Physical Exam Vital Signs: Vital Signs: Last Vital Signs Temp 96.2 F L 04/18/22 15:16 Pulse 52 04/18/22 15:16 Resp 18 04/18/22 15:16 BP 131/62 04/18/22 15:16 Pulse Ox 96 04/18/22 15:16 O2 Del Method 04/18/22 15:16 O2 Flow Rate 3 04/17/22 10:57 Oxygen Flow Rate 4 03/31/22 10:53 BMI result Body Mass Index 29.5 <VERONICA Benito - Last Filed: 04/18/22 16:36> Constitutional - Awake and Alert, No apparent distress Eyes - PERRLA, EOMI Cardiovascular - S1S2, RRR, No edema Respiratory - Normal lung expansion, Normal respiratory effort, No respiratory distress, CTA bilaterally Gastrointestinal - NT / ND; +BS; No rebound or guarding Extremities - no calf tenderness bilaterally, no swelling Skin - Warm/Dry Neurological - Alert & oriented to self Psychological - Appropriate affect <VERONICA Benito - Last Filed: 04/18/22 16:36> Objective Data Active Medications Acetaminophen (Acetaminophen 325 Mg Tablet) 650 mg PO Q6H PRN PRN Reason: Pain, Mild (Pain Scale 1-3) Last Admin: 04/09/22 21:49 Dose: 650 mg Documented By: JOVANNI Albuterol/Ipratropium (Albuterol/Iprat 2.5/0.5mg 3 Ml Ampul.Neb) 3 ml INHALE RQ4H PRN PRN Reason: sob Amlodipine Besylate (Amlodipine Besylate 10 Mg Tablet) 10 mg PO DAILY [facility]; Protocol Last Admin: 04/18/22 08:11 Dose: 10 mg Documented By: BIANCA Aspirin (Aspirin 81 Mg Tab.Chew) 81 mg PO DAILY [facility] Last Admin: 04/06/22 09:04 Dose: Not Given Documented By: BIANCA Non-Admin Reason: See Note Atorvastatin Calcium (Atorvastatin Calcium 40 Mg Tablet) 40 mg PO DAILY [facility] Last Admin: 04/06/22 09:04 Dose: Not Given Documented By: BIANCA Non-Admin Reason: See Note Dextrose (Dextrose 50 % 25 Gm/50 Ml Syringe) 25 gm IVPUSH Q15M PRN; Protocol PRN Reason: per Hypoglycemia Standing Ord. Ferrous Sulfate (Ferrous Sulfate 324 Mg Tablet.Dr) 324 mg PO DAILY [facility] Last Admin: 04/10/22 09:41 Dose: 324 mg Documented By: HAM Glucose (Glucose Gel 15 Gm Gel..Gram.) 15 gm PO Q15M PRN; Protocol PRN Reason: per Hypoglycemia Standing Ord. Fat Emulsion Intravenous (Intralipid) 144 mls @ 12 mls/hr IVCONT BID@0600,1800 [facility] Last Infusion: 04/16/22 11:56 Dose: 0 mls/hr Documented By: NATALIYA Insulin Human Lispro (Insulin Lispro 100 Unit/Ml 3 Ml Vial) 0 unit SUBCUT QIDACHS [facility]; Protocol Last Admin: 04/18/22 15:58 Dose: Not Given Documented By: BIANCA Non-Admin Reason: See Note Magnesium Oxide (Magnesium Oxide 400 Mg Tablet) 400 mg PO BID [facility] Last Admin: 04/11/22 09:00 Dose: Not Given Documented By: BECKY Non-Admin Reason: Hold per Melatonin (Melatonin 3 Mg Tablet) 6 mg PO BEDTIME PRN PRN Reason: insomnia Nadolol (Nadolol 20 Mg Tablet) 20 mg PO DAILY [facility]; Protocol Last Admin: 04/18/22 08:11 Dose: 20 mg Documented By: BIANCA Olanzapine (Olanzapine 5 Mg Tablet) 5 mg PO BEDTIME [facility] Last Admin: 04/17/22 20:25 Dose: 5 mg Documented By: CHIKA Ondansetron HCl (Ondansetron Hcl 4 Mg/2 Ml Vial) 4 mg IVPUSH Q6H PRN PRN Reason: Nausea Last Admin: 04/12/22 15:07 Dose: 4 mg Documented By: MOHAN Rifaximin (Rifaximin 550 Mg Tablet) 550 mg PO BID [facility] Last Admin: 04/18/22 08:11 Dose: 550 mg Documented By: JOLIE-SOFFA Sodium Bicarbonate (Sodium Bicarbonate 650 Mg Tablet) 650 mg PO BID [facility] Last Admin: 04/18/22 08:11 Dose: 650 mg Documented By: JOLIE-SOFFA Sodium Chloride (0.9 % Sodium Chloride Flush 3 Ml Syringe) 3 ml IVFLUSH QSHIFT [facility] Last Admin: 04/18/22 07:02 Dose: Not Given Documented By: JOLIE-SOFFA Non-Admin Reason: See Note Thiamine HCl (Thiamine Hcl 100 Mg Tablet) 100 mg PO DAILY [facility] Last Admin: 04/18/22 08:15 Dose: 100 mg Documented By: JOLIE-SOFFA <VERONICA Benito - Last Filed: 04/18/22 16:36> Labs CBC & Chem 7: : 04/24/22 06:30 04/24/22 06:30 <VERONICA Benito - Last Filed: 04/18/22 16:36> Labs: Laboratory Results - last 24 hr 04/17/22 04/18/22 04/18/22 19:41 07:34 08:36 MCV 83.3 MCH 28.6 MCHC 34.3 RDW 15.8 Plt Count 86 L MPV 10.1 Immature Gran % (Auto) 0.9 H Neut % (Auto) 72.9 Lymph % (Auto) 12.9 L [place] % (Auto) 9.9 Eos % (Auto) 3.2 Baso % (Auto) 0.2 Lymph # (Auto) 0.6 L [place] # (Auto) 0.4 Eos # (Auto) 0.1 Baso # (Auto) 0.0 Abs Immat Gran (auto) 0.04 H Absolute Neuts (auto) 3.2 Absolute Nucleated RBC 0.000 Nucleated RBC % (auto) 0.0 Anion Gap Estim Creat Clear Calc Estimated GFR POC Glucose 271 H 145 H Random Glucose Calcium 12/11/22 12/11/22 12/11/22 08:36 11:32 15:27 MCV MCH MCHC RDW Plt Count MPV Immature Gran % (Auto) Neut % (Auto) Lymph % (Auto) [place] % (Auto) Eos % (Auto) Baso % (Auto) Lymph # (Auto) [place] # (Auto) Eos # (Auto) Baso # (Auto) Abs Immat Gran (auto) Absolute Neuts (auto) Absolute Nucleated RBC Nucleated RBC % (auto) Anion Gap 13 Estim Creat Clear Calc 33.1 Estimated GFR 35 POC Glucose 256 H 173 H Random Glucose 184 H Calcium 8.3 L <VERONICA Benito - Last Filed: 04/18/22 16:36> Assessment and Plan (1) ANDREEA (acute kidney injury): Status: Acute <VERONICA Benito - Last Filed: 04/18/22 16:36> (2) Bladder cancer: Status: Acute <VERONICA Benito - Last Filed: 04/18/22 16:36> (3) Pneumonia: Status: Acute <VERONICA Benito - Last Filed: 04/18/22 16:36> (4) Gross hematuria: Status: Acute <VERONICA Benito - Last Filed: 04/18/22 16:36> Assessment and Plan: 76-year-old male presents unresponsive, hypotensive, hypothermic in the backdrop of active urinary sediment.? ?#acute hypoxemic respiratory failure,? possible secondary hypoalbuminemia ,possible liver disease /cirrosis ,less likely CHF, now possible pneumonia- seems to be resolved, currently 95% on RA -echo : ef 55-60% On admission: chest x-ray-? Atelectasis /effusion, ABG reviewed- pH seems fine., ammonia? Fine. Continue suctioning prn,? chest physiotherapy Received Lasix for 1 day but seems like less likely CHF but more likely due to atelectasis/ hypoalbuminemia/now with pneumonia 04/11 CXR shwoing low lung cvolumes with similar small right sided pleural effusions and increased right >left patchy parenchymal airspace opacities reflective of atelectasis vs superimposed infection. Started on zosyn and doxycycline, completed 5 days treatment #toxic metabolic encephalopathy :? Multifactorial(electrolytic abnormalities/poor oral intake/ dementia/zyprexa,andreea on ckd)- mentation now baseline CT head negative,mri reviewed by neuro,EEG due to fairly severe diffuse background slowing consistent with a diffuse encephalopathic process. neuro saw the patient-encephalopathy Possibly? related to multifactorial basis with? hypoxia, metabolic abnormalities and baseline dementia supportive care. -Resume scheduled zyprexa per psychiatry -Treat for pneumonia as below. Recheck for UTI with UA/UC given ongoing encephalopathy and hypothermia -Abdomen also noted to be distended- check abd/pelvis CT #Acute pneumonia-resolved -04/11 CXR shwoing low lung cvolumes with similar small right sided pleural effusions and increased right >left patchy parenchymal airspace opacities reflective of atelectasis vs superimposed infection. Started on zosyn and doxycycline -Completed 5 days zosyn and doxyclycine. D/c'd #hx of HHC s/p ablation ,as well as hx of bladder cancer -Did not tolerate palliative immunotherapy. Follows with outpt urology [facility] who may be recommending palliative radiation therapy to stop bleeding/clots. Not a surgical candidate. -supportive care. -Continue CBI for hematuria. Required 3 units PRBC total during admission. Clots recurred overnight 04/15- requiring irrigation by nursing and urology. Continue CBI WO, now with light pink output, no clots -H/H dropped to 6.8/20.2%. Discussions around hospice have been initiated with nephew, but he is not ready to make the decision and would like patient transfused. Discussed that hematuria will be a recurrent issue and continuing transfusions will not resolve any long tterm issue. Hospice referral requested. 1 unit PRBC received. H/H improved to 9.1/26.5% this am -Family declines right sided nephrostomy tube -Follow CBC -slow cbi #UTI -resolved following 7 days abx. -UA/UC repeated 04/14 due to recurrent hypothermia with negative cultures. # Intermittent hypothermia -Likely secondary to poor nutrition, now eating better -Patient with subclinical hypothyroidism, not likely contributory -Olanzepine held for 4 days with recurrence of hypothermia. Not likely related to antipsychotis use -Not meeting other SIRS criteria, less likely related to infection -Maru oshea prn #Chronic normocytic anemia/thrombocytopenia -Multifactorial -H/H and PLT stable -Transfuse if hgb <7 -follow daily CBCs #Insulin dependent type 2 diabetes- glucsoe levels reasonably controlled -Continue PPN/diabetic diet -POC glucose -humalog SS #Dementia unspecified with agitated features -evaluated by pscyhiatry- olanzepine resumed, continue 5mg nightly ?#failure to thrive/hypoalbuminemia:? patient is not eating well for several weeks. Tolerating one PO meal daily when given by nephew, otherwise still PPN. -Olanzepine resumed last night. Patient more oriented, hopefully with less paranoia. Encourage PO intake for meals -PPN discontinued, eating better -No TPN per family (nephew, Clif, HCP) -seen by speech and swallow -added diet. diet can be tailered as per menatl status. #andreea on ckd(stage unclear ,per family cr is between 2-3): multifactorial -ftt/bladder canncer ,hematuria- resolved cr trending down- now 1.89 as per family his basline cr is between 2-3 hold nephrotoxic meds ,iv hydration -Per nephrology continue LR, avoid nephrotoxic agents, dc octreotide -Resume NaHCO3, CO2<24 -Follow BMP #Hepatic cirrhosis -Rifampin/nadolol has been on hold 2/2 mental status. Resume nadolol and rifampin d/w Gi - ANDREEA less likely hepatorenal. As above ?above management discussed with patient family in detail length they understand and in agreement with the above , healthcare proxy Mr. Menezes- they understand the patient prognosis is poor, currently continue conservative management,Mr menezes -does not wnat tube feeding or HD. Further discussed prognosis with nephivannaClif, this afternoon. He wishes for palliative therapy for his uncle, but is not quite ready to make the decision to move to hospice. Referral is placed for further discussion. Nephivanna does wish for blood transfusion today knows this will only improve anemia short term and hematuria will recur given bladder cancer. He has had discussions [facility] urologist about palliative radiation therapy to help stop bleeding, unsure if this can take place with hospice. Referral to hospice for information placed by CM. PPN discontinued. Encourage PO feeds. Full code Vena dynes boots-due to? Anemia/thrombocytopenia ongoing hospitalization for treatment:multiple issues ,acute hypoxemic respiratory failure multifactorial,FTT transitioning off PPN, toxic metabolic encephalopathy, ongoing hematuria requiring transfusion and CBI <VERONICA Benito - Last Filed: 12/11/22 16:36> Time Spent With Patient Time: Total time managing care of this patient today ____ minutes. <VERONICA Benito - Last Filed: 04/18/22 16:36> Quality Stroke Does the patient have a stroke diagnosis?: No <VERONICA Benito - Last Filed: 04/18/22 16:36> VTE Prior VTE?: No <VERONICA Benito - Last Filed: 04/18/22 16:36> VTE Risk Level:: Medical - moderate - high <VERONICA Benito - Last Filed: 04/18/22 16:36> VTE Device Contraindication: N/A - Device Ordered <VERONICA Benito - Last Filed: 04/18/22 16:36> VTE Drug Contraindication: Treatment Not Indicated <VERONICA Benito - Last Filed: 04/18/22 16:36>
[2022-04-18 19:59] VITALS: BP 138/77; PULSE 48; RESP 20; TEMP 35.6; O2SAT 94
[2022-04-18 20:36] LABS: Glucose, Whole Blood 72 mg/dL (60-115)
[2022-04-18] MEDS: OLANZapine 5 MG TABLET PO (20:48)
[2022-04-19] VITALS (9 sets, daily range): BP systolic 150–175; BP diastolic 78–93; PULSE 50–86; RESP 12–19; TEMP 32.7–36.4; O2SAT 94–96
[2022-04-19] MEDS: 0.9 % Sodium Chloride Flush 3 ML SYRINGE IVFLUSH ×3 (01:40→23:05)
[2022-04-19 07:27] LABS: Glucose, Whole Blood 140 mg/dL (60-115)
--- NOTE | 2022-04-19 07:31 | PC.NURSE ---
Patient's temp overnight was as low as 91.1. Provider notified ordered to apply warm blankets and recheck. Temp went up to 91.8. Maru oshea not ordered at present. Will continue to monitor.
[2022-04-19] MEDS: nadoloL 20 MG TABLET PO (08:26)
[2022-04-19] MEDS: rifAXIMin 550 MG TABLET PO ×2 (08:26→22:53)
[2022-04-19] MEDS: Sodium Bicarbonate 650 MG TABLET PO ×2 (08:27→22:53)
[2022-04-19] MEDS: amLODIPine Besylate 10 MG TABLET PO (08:27)
[2022-04-19] MEDS: Thiamine HCL 100 MG TABLET PO (08:27)
--- NOTE | 2022-04-19 10:05 | MHC.CLN ---
F/U 100% AND 25% PO INTAKE X2 MEALS DIET RX: PUREED DIET WITH NT LIQ-APPROPRIATE PER DRAW FURNACE TENDER PT RECEIVING ENSURE TID TO INCREASE KCALS SUPP TO PROVIDE 1050KCALS, 60G PROTEIN WITH 100% ACCEPTANCE PT WILL NEED ASSISTANCE WITH ALL MEALS CONTINUE TO MONITOR PO INTAKE CLOSELY
--- NOTE | 2022-04-19 11:18 | P.PNNP_ITS ---
Subjective Subjective Date of Service: 04/19/22 Interval history: Seen and exmained, event snoted Physical Exam Vital Signs: Vital Signs: Last Vital Signs Temp 96.1 F L 04/19/22 07:15 Pulse 67 04/19/22 07:15 Resp 12 04/19/22 07:15 BP 150/83 H 04/19/22 07:15 Pulse Ox 95 04/19/22 07:15 O2 Del Method 04/19/22 07:15 O2 Flow Rate 3 04/17/22 10:57 Oxygen Flow Rate 4 03/31/22 10:53 BMI result Body Mass Index 29.5 Const: General: no acute distress, ill appearing and lethargic Orientation/consciousness: oriented to person, oriented to place and lethargic Neck: Other: supple Neck: Yes supple Chest: Other: clear Resp: Effort & Inspection: no respiratory distress Cardio: Other: RRR Heart sounds: no murmurs and no rubs GI: Palpation (GI): Soft to palpation Neuro: General: oriented to person and oriented to place Extrem: General: Yes normal to inspection, No clubbing and No cyanosis Objective Data Labs CBC & Chem 7: 04/18/22 08:36 04/18/22 08:36 Labs: Laboratory Results - last 24 hr 04/18/22 04/18/22 04/18/22 11:32 15:27 20:33 POC Glucose 256 H 173 H 72 04/19/22 07:14 POC Glucose 140 H Microbiology Microbiology Results: Microbiology 04/14/22 11:15 Blood - Venous Blood Culture - Preliminary No growth after 48 hours. 04/14/22 11:15 Blood - Venous Blood Culture - Preliminary No growth after 48 hours. 04/14/22 00:00 Urine clean catch - Urine villavicencio top Urine Culture - Final No growth. 03/31/22 15:07 Blood - Venous Blood Culture - Final No growth after 5 days. 03/31/22 15:07 Blood - Venous Blood Culture - Final No growth after 5 days. 03/31/22 00:00 Urine Other - Nephrostomy Urine Culture - Final Staphylococcus cohnii ssp urea 03/31/22 15:02 Blood - Venous Blood Culture - Final 03/31/22 15:02 Blood - Venous Blood Culture - Final Procedures Date of Service Date of Service: 04/19/22 Assessment & Plan Assessment and plan (1) ANDREEA (acute kidney injury): Status: Acute (2) Gross hematuria: Status: Acute (3) Diabetes type 2, controlled: Status: Acute (4) Sepsis: Status: Acute (5) Obstructive nephropathy: Status: Acute Plan 1. ANDREEA: peak SCr 5.2 noew back to BSL 1.9; multifact including Obs and dehydration 2. Obs uropathy: L PCN tue; and R hydro--per chart PT/family donot want R PCN tube 3. Anemia: will track as poutpt as may be candidate for IV Fe and/or epo No DATA REVIEW SPECIALIST per PT/family ( noted by Dr Woods d/w nephew) REC: ok to d/c from renal standpoint; I will arrange f/u as outpt Time Spent With Patient Time: Total time managing care of this patient today ____ minutes. Progress Note: Quality Stroke Does the patient have a stroke diagnosis?: No
[2022-04-19 11:25] LABS: Glucose, Whole Blood 228 mg/dL (60-115)
[2022-04-19] MEDS: Insulin Lispro 100 UNIT/ML 3 ML VIAL SUBCUT ×2 (11:57→17:22)
--- NOTE | 2022-04-19 13:32 | MHC.SL.SWA ---
Speech Pathologist Impression: Risk of Aspiration Due to: Medically Fragile Poor PO Intake Reduced Cognition Weak Cough Dysphasia Diet Status: Recommend Ground/Mechanical Altered (NDD2), with THIN liquids by controlled cup sip only, continue with pills crushed in puree. [employer] notified PA, RDs by secure text, discovered that PA had already advanced diet to these recommended consistencies. PA reported that she had observed patient eating and drinking with Nephew, and felt these consistencies were appropriate. Liquid Consistency and Strategies for Safe Swallow: Liquid Intake Recommendation: Thin Liquid Intake Strategies: Small Sips No Straws Solid Food Consistency: Dietary Recommendations: Grnd/Mech Altered (NDD2) Additional Modifications to Solid Foods: Patient will need 1-1 feeding with close monitor for swallow before presenting any additional food/liquid, strict monitor for aspiration signs. Oral Medication Intake: Crushed with Puree Please contact the pharmacy regarding appropriate crushable or liquid drug formulations that are available whenever modified delivery is recommended. Compensatory Strategies and Precautions to be Taken for Safe Swallow: Sitting Upright (90 deg) No Straw Small Bites and Sips Alternate Liquids/Solids Rate of Ingestion Change Oral Check Supervision While Eating and Drinking for Safe Swallow: Total Assistance (1:1) Foods to Avoid: Mixed consistencies (e.g. cereal with milk, thin broth soups with vegetable and meat pieces). Swallowing Recommended Treatments: Compens. Strategy Educat. Recommendation for Speech: Further Testing Needed Outpatient Speech Therapy Inpatient Speech Therapy Comment:Attempted to see patient at lunch, discovered that patient had already had lunch brought by nephew and was refusing any more food. Sitter reported that nephew had fed patient spaghetti with meat sauce, most of which was still present at bedside. Patient was asking if he could go home and asking for help finding his way home. While with patient, his nephew Clif called to the room, and when he realized who I was, he reported that his Uncle had done well on the spaghetti and had been drinking water from a cup with no difficulty. He additionally reported patient had a meatball sub over the weekend, cut into small pieces. Nephew requested a diet change, and that the PA call him. Observed patient taking controlled cup sips of water, with patient requiring some monitoring/cuing not to take chain sips. Patient produced mild delay initiating swallow, but no clinical signs of aspiration. Patient refused food trials, but given evidence and direct report that patient had been consuming soft solids, recommend patient's diet be advanced to Ground/Mechanical Altered (NDD2), with THIN liquids by controlled cup sip only, continue with pills crushed in puree. [employer]ER notified PA, RDs by secure text, discovered that PA had already advanced diet to these recommended consistencies. PA reported that she had observed patient eating and drinking with Nephew, and felt these consistencies were appropriate. Frequency/Duration: Date Range for Service Req: Timeline to reassess: Direct Service Worker Clinican/Clinical Fellow: No Supervisory Statement: I have reviewed and agree with the student/clinical fellow's documentation: N/A Speech Language Pathologist: Samantha Shirley M.A., CCC-[employer]UER
--- NOTE | 2022-04-19 15:38 | MHC.CM.PN ---
The only bed offered is from [facility]. Multiple referrals have been sent to area SNFs. There have not been any bed offers. The IMM has been delivered. The detailed notice of discharge was provided to HCP ozzyivanna Clif. He requested that the documents be sent via EMAIL. Documents sent to [email or web address]. Clif requested to speak with the supervising MD. The doctors name was provided to Clif. Clif was instructed to call the main number and request to speak with the MD. Clif has called T/W >12 times today.
[2022-04-19 15:41] LABS: Glucose, Whole Blood 238 mg/dL (60-115)
--- NOTE | 2022-04-19 18:05 | HO.PM.IMPN ---
Subjective Subjective Date of Service: 04/19/22 <VERONICA Benito - Last Filed: 04/19/22 18:15> 04/25/22 <Aguilar Plama MD - Last Filed: 04/25/22 08:59> Interval History: Seen in follow up for AMS interval history: Patient resting comfortably in bed. Has CBI running- has been slowed, output clear. H/H improved. <VERONICA Benito - Last Filed: 04/19/22 18:15> Review of Systems Review of Systems: Yes Unobtainable due to mental condition <VERONICA Benito - Last Filed: 04/19/22 18:15> Physical Exam Vital Signs: Vital Signs: Last Vital Signs Temp 96.9 F 04/19/22 15:01 Pulse 86 04/19/22 15:01 Resp 16 04/19/22 15:01 BP 168/86 H 04/19/22 15:01 Pulse Ox 94 04/19/22 15:01 O2 Del Method 04/19/22 15:01 O2 Flow Rate 3 04/17/22 10:57 Oxygen Flow Rate 4 03/31/22 10:53 BMI result Body Mass Index 29.5 <VERONICA Benito - Last Filed: 04/19/22 18:15> Constitutional - Awake and Alert, No apparent distress Eyes - PERRLA, EOMI Cardiovascular - S1S2, RRR, No edema Respiratory - Normal lung expansion, Normal respiratory effort, No respiratory distress, CTA bilaterally Gastrointestinal - NT / ND; +BS; No rebound or guarding Extremities - no calf tenderness bilaterally, no swelling Skin - Warm/Dry Neurological - Alert & oriented to self Psychological - Appropriate affect <VERONICA Benito - Last Filed: 04/19/22 18:15> Objective Data Active Medications Acetaminophen (Acetaminophen 325 Mg Tablet) 650 mg PO Q6H PRN PRN Reason: Pain, Mild (Pain Scale 1-3) Last Admin: 04/09/22 21:49 Dose: 650 mg Documented By: JOVANNI Albuterol/Ipratropium (Albuterol/Iprat 2.5/0.5mg 3 Ml Ampul.Neb) 3 ml INHALE RQ4H PRN PRN Reason: sob Amlodipine Besylate (Amlodipine Besylate 10 Mg Tablet) 10 mg PO DAILY [facility]; Protocol Last Admin: 04/19/22 08:27 Dose: 10 mg Documented By: MOHAN Aspirin (Aspirin 81 Mg Tab.Chew) 81 mg PO DAILY [facility] Last Admin: 04/06/22 09:04 Dose: Not Given Documented By: BIANCA Non-Admin Reason: See Note Atorvastatin Calcium (Atorvastatin Calcium 40 Mg Tablet) 40 mg PO DAILY [facility] Last Admin: 04/06/22 09:04 Dose: Not Given Documented By: BIANCA Non-Admin Reason: See Note Dextrose (Dextrose 50 % 25 Gm/50 Ml Syringe) 25 gm IVPUSH Q15M PRN; Protocol PRN Reason: per Hypoglycemia Standing Ord. Ferrous Sulfate (Ferrous Sulfate 324 Mg Tablet.Dr) 324 mg PO DAILY [facility] Last Admin: 04/10/22 09:41 Dose: 324 mg Documented By: HAM Glucose (Glucose Gel 15 Gm Gel..Gram.) 15 gm PO Q15M PRN; Protocol PRN Reason: per Hypoglycemia Standing Ord. Fat Emulsion Intravenous (Intralipid) 144 mls @ 12 mls/hr IVCONT BID@0600,1800 [facility] Last Infusion: 04/16/22 11:56 Dose: 0 mls/hr Documented By: NATALIYA Insulin Human Lispro (Insulin Lispro 100 Unit/Ml 3 Ml Vial) 0 unit SUBCUT QIDACHS [facility]; Protocol Last Admin: 04/19/22 17:22 Dose: 2 unit Documented By: MOHAN Magnesium Oxide (Magnesium Oxide 400 Mg Tablet) 400 mg PO BID [facility] Last Admin: 04/11/22 09:00 Dose: Not Given Documented By: BECKY Non-Admin Reason: Hold per Melatonin (Melatonin 3 Mg Tablet) 6 mg PO BEDTIME PRN PRN Reason: insomnia Nadolol (Nadolol 20 Mg Tablet) 20 mg PO DAILY [facility]; Protocol Last Admin: 04/19/22 08:26 Dose: 20 mg Documented By: MOHAN Olanzapine (Olanzapine 5 Mg Tablet) 5 mg PO BEDTIME [facility] Last Admin: 04/18/22 20:48 Dose: 5 mg Documented By: CHIKA Ondansetron HCl (Ondansetron Hcl 4 Mg/2 Ml Vial) 4 mg IVPUSH Q6H PRN PRN Reason: Nausea Last Admin: 04/12/22 15:07 Dose: 4 mg Documented By: MOHAN Rifaximin (Rifaximin 550 Mg Tablet) 550 mg PO BID [facility] Last Admin: 04/19/22 08:26 Dose: 550 mg Documented By: MOHAN Sodium Bicarbonate (Sodium Bicarbonate 650 Mg Tablet) 650 mg PO BID [facility] Last Admin: 04/19/22 08:27 Dose: 650 mg Documented By: MOHAN Sodium Chloride (0.9 % Sodium Chloride Flush 3 Ml Syringe) 3 ml IVFLUSH QSHIFT [facility] Last Admin: 04/19/22 17:23 Dose: Not Given Documented By: MOHNA Non-Admin Reason: No Access Thiamine HCl (Thiamine Hcl 100 Mg Tablet) 100 mg PO DAILY [facility] Last Admin: 04/19/22 08:27 Dose: 100 mg Documented By: MOHAN <VERONICA Benito - Last Filed: 04/19/22 18:15> Labs CBC & Chem 7: : 04/24/22 06:30 04/24/22 06:30 <VERONICA Benito - Last Filed: 04/19/22 18:15> Labs: Laboratory Results - last 24 hr 04/18/22 04/19/22 04/19/22 20:33 07:14 11:19 POC Glucose 72 140 H 228 H 04/19/22 15:38 POC Glucose 238 H <VERONICA Benito - Last Filed: 04/19/22 18:15> Microbiology Microbiology Results: Microbiology 04/14/22 11:15 Blood Culture - Final Blood - Venous No growth after 5 days. 04/14/22 11:15 Blood Culture - Final Blood - Venous No growth after 5 days. <VERONICA Benito - Last Filed: 04/19/22 18:15> Assessment and Plan (1) ANDREEA (acute kidney injury): Status: Acute <VERONICA Benito - Last Filed: 04/19/22 18:15> (2) Bladder cancer: Status: Acute <VERONICA Benito - Last Filed: 04/19/22 18:15> (3) Pneumonia: Status: Acute <VERONICA Benito - Last Filed: 04/19/22 18:15> (4) Gross hematuria: Status: Acute <VERONICA Benito - Last Filed: 04/19/22 18:15> Assessment and Plan: 76-year-old male presents unresponsive, hypotensive, hypothermic in the backdrop of active urinary sediment.? ?#acute hypoxemic respiratory failure- resolved -possible secondary hypoalbuminemia ,possible liver disease /cirrosis ,less likely CHF, pneumonia -echo : ef 55-60% On admission: chest x-ray-? Atelectasis /effusion, ABG reviewed- pH seems fine., ammonia? Fine. Continue suctioning prn,? chest physiotherapy Received Lasix for 1 day but seems like less likely CHF but more likely due to atelectasis/ hypoalbuminemia/treated for pneumonia 04/11 CXR shwoing low lung volumes with similar small right sided pleural effusions and increased right >left patchy parenchymal airspace opacities reflective of atelectasis vs superimposed infection. Started on zosyn and doxycycline, completed 5 days treatment #toxic metabolic encephalopathy :? Multifactorial(electrolytic abnormalities/poor oral intake/ dementia/zyprexa,andreea on ckd)- mentation now baseline CT head negative,mri reviewed by neuro,EEG due to fairly severe diffuse background slowing consistent with a diffuse encephalopathic process. neuro saw the patient-encephalopathy Possibly? related to multifactorial basis with? hypoxia, metabolic abnormalities and baseline dementia supportive care. -Resume scheduled zyprexa per psychiatry -Completed treatment for pneumonia. Repeat UA/UC negative for recurrent UTI. Recheck for UTI. CT abd/pelvis without acute findings #Acute pneumonia-resolved -04/11 CXR shwoing low lung cvolumes with similar small right sided pleural effusions and increased right >left patchy parenchymal airspace opacities reflective of atelectasis vs superimposed infection. Started on zosyn and doxycycline -Completed 5 days zosyn and doxyclycine. D/c'd #hx of HHC s/p ablation ,as well as hx of bladder cancer -Did not tolerate palliative immunotherapy. Follows with outpt urology [facility] who may be recommending palliative radiation therapy to stop bleeding/clots. Not a surgical candidate. -supportive care. -Continue CBI for hematuria. Required 3 units PRBC total during admission. Clots recurred overnight 04/15- requiring irrigation by nursing and urology. Continue CBI WO, now with light pink output, no clots -H/H dropped to 6.8/20.2%. Discussions around hospice have been initiated with nephew, but he is not ready to make the decision and would like patient transfused. Discussed that hematuria will be a recurrent issue and continuing transfusions will not resolve any long tterm issue. Hospice referral requested. 1 unit PRBC received. H/H improved to 9.1/26.5% this am -Family declines right sided nephrostomy tube -Follow CBC -CBI stopped -WIll continue villareal on discharge given admission for obstructive nephropathy with left nephrostomy tube in place and persistent moderate/marked right ureterectasis diffusely, family refusing right nephrostomy tube, with background obstructive bladder cancer with recurrent hematuria. #UTI -resolved following 7 days abx. -UA/UC repeated 04/14 due to recurrent hypothermia with negative cultures. # Intermittent hypothermia -Likely secondary to poor nutrition, now eating better -Central line dc'd -Patient with subclinical hypothyroidism, not likely contributory -Olanzepine held for 4 days with recurrence of hypothermia. Not likely related to antipsychotis use -Not meeting other SIRS criteria, less likely related to infection -Maru oshea prn #Chronic normocytic anemia/thrombocytopenia -Multifactorial -H/H and PLT stable -Transfuse if hgb <7 -follow daily CBCs #Insulin dependent type 2 diabetes- glucose levels reasonably controlled -Continue PPN/diabetic diet -POC glucose -humalog SS #Dementia unspecified with agitated features -evaluated by pscyhiatry- olanzepine resumed, continue 5mg nightly ?#failure to thrive/hypoalbuminemia:? patient is not eating well for several weeks. Tolerating one PO meal daily when given by nephew, otherwise still PPN. -Olanzepine resumed last night. Patient more oriented, hopefully with less paranoia. Encourage PO intake for meals -PPN discontinued, eating better -No TPN per family (nephew, Clif, HCP) -seen by speech and swallow -added diet. diet can be tailered as per menatl status. #andreea on ckd(stage unclear ,per family cr is between 2-3): multifactorial -ftt/bladder canncer ,hematuria- resolved cr trending down- now 1.89 as per family his basline cr is between 2-3 hold nephrotoxic meds ,iv hydration -Per nephrology continue LR, avoid nephrotoxic agents, dc octreotide -Resume NaHCO3, CO2<24 -Follow BMP #Hepatic cirrhosis -Rifampin/nadolol has been on hold 2/2 mental status. Resume nadolol and rifampin d/w Gi - ANDREEA less likely hepatorenal. As above above management discussed with patient family in detail length they understand and in agreement with the above , healthcare proxy Mr. Menezes- they understand the patient prognosis is poor, currently continue conservative management,Mr menezes -does not wnat tube feeding or HD. Further discussed prognosis with nephew, Clif. He wishes for palliative therapy for his uncle, but is not quite ready to make the decision to move to hospice. Referral is placed to hospice for further discussion. Nephew does wish for blood transfusion which was ordered with improve in H/H. Clif knows this will only improve anemia short term and hematuria will recur given bladder cancer. He has had discussions with [facility] about palliative radiation therapy to help stop bleeding, unsure if this can take place with hospice. Will continue hospice discussions outpatient. PPN discontinued. Encourage PO feeds. Patient medically cleared for discharge and scheduled to return to [facility] where patient previously resided. Family wishes for patient to be placed elsewhere but case management has been unable to secure a bed at other facilities. Patient nephew and healthcare proxy, Clif, has appealed decision for discharge and are awaiting decision from Medicare. Full code Vena dynes boots-due to? Anemia/thrombocytopenia <VERONICA Benito - Last Filed: 04/19/22 18:15> Time Spent With Patient Time: Total time managing care of this patient today 45 minutes. <VERONICA Benito - Last Filed: 04/19/22 18:15> Quality Stroke Does the patient have a stroke diagnosis?: No <VERONICA Benito Last Filed: 04/19/22 18:15> VTE Prior VTE?: No <VERONICA Benito - Last Filed: 04/19/22 18:15> VTE Risk Level:: Medical - moderate - high <VERONICA Benito Last Filed: 04/19/22 18:15> VTE Device Contraindication: N/A - Device Ordered <VERONICA Benito - Last Filed: 04/19/22 18:15> VTE Drug Contraindication: Treatment Not Indicated <VERONICA Benito - Last Filed: 04/19/22 18:15>
[2022-04-19 19:46] LABS: Glucose, Whole Blood 184 mg/dL (60-115)
--- NOTE | 2022-04-19 19:58 | PC.NURSE ---
CBI was stopped by Cherry Gomez. Waldrop is continuing drainage of clear yellow color. report given to the on coming nurse
[2022-04-19] MEDS: OLANZapine 5 MG TABLET PO (22:53)
[2022-04-20 00:30] LABS: Hematocrit 26.4 % (42.0-52.0)
[2022-04-20 04:00] VITALS: BP 156/74; PULSE 71; RESP 20; TEMP 36.9; O2SAT 95
[2022-04-20 07:19] VITALS: BP 171/81; PULSE 74; RESP 15; TEMP 36.1; O2SAT 97
[2022-04-20 07:36] LABS: Glucose, Whole Blood 141 mg/dL (60-115)
[2022-04-20] MEDS: Sodium Bicarbonate 650 MG TABLET PO ×2 (08:00→21:44)
[2022-04-20] MEDS: nadoloL 20 MG TABLET PO (08:00)
[2022-04-20] MEDS: rifAXIMin 550 MG TABLET PO ×2 (08:00→21:44)
[2022-04-20] MEDS: amLODIPine Besylate 10 MG TABLET PO (08:01)
[2022-04-20] MEDS: 0.9 % Sodium Chloride Flush 3 ML SYRINGE IVFLUSH ×3 (08:01→23:25)
[2022-04-20] MEDS: Thiamine HCL 100 MG TABLET PO (08:01)
--- NOTE | 2022-04-20 09:47 | HO.PM.IMPN ---
Subjective Subjective Date of Service: 04/20/22 Interval History: Seen in follow up for AMS interval history: Patient resting comfortably in bed. CBI stopped yesterday afternoon. Clots recurred overnight, CBI resumed now with light pink output. H/H stable Review of Systems Review of Systems: Yes Unobtainable due to mental condition Physical Exam Vital Signs: Vital Signs: Last Vital Signs Temp 96.9 F 04/20/22 07:19 Pulse 74 04/20/22 07:19 Resp 15 04/20/22 07:19 BP 171/81 H 04/20/22 07:19 Pulse Ox 97 04/20/22 07:19 O2 Del Method 04/20/22 07:19 O2 Flow Rate 3 04/17/22 10:57 Oxygen Flow Rate 4 03/31/22 10:53 BMI result Body Mass Index 29.5 Constitutional - Awake and Alert, No apparent distress Eyes - PERRLA, EOMI Cardiovascular - S1S2, RRR, No edema Respiratory - Normal lung expansion, Normal respiratory effort, No respiratory distress, CTA bilaterally Gastrointestinal - NT / ND; +BS; No rebound or guarding Extremities - no calf tenderness bilaterally, no swelling Skin - Warm/Dry Neurological - Alert & oriented to self Psychological - Appropriate affect Objective Data Active Medications Acetaminophen (Acetaminophen 325 Mg Tablet) 650 mg PO Q6H PRN PRN Reason: Pain, Mild (Pain Scale 1-3) Last Admin: 04/09/22 21:49 Dose: 650 mg Documented By: JOVANNI Albuterol/Ipratropium (Albuterol/Iprat 2.5/0.5mg 3 Ml Ampul.Neb) 3 ml INHALE RQ4H PRN PRN Reason: sob Amlodipine Besylate (Amlodipine Besylate 10 Mg Tablet) 10 mg PO DAILY [facility]; Protocol Last Admin: 04/20/22 08:01 Dose: 10 mg Documented By: MOHAN Aspirin (Aspirin 81 Mg Tab.Chew) 81 mg PO DAILY [facility] Last Admin: 04/06/22 09:04 Dose: Not Given Documented By: BIANCA Non-Admin Reason: See Note Atorvastatin Calcium (Atorvastatin Calcium 40 Mg Tablet) 40 mg PO DAILY [facility] Last Admin: 04/06/22 09:04 Dose: Not Given Documented By: BIANCA Non-Admin Reason: See Note Dextrose (Dextrose 50 % 25 Gm/50 Ml Syringe) 25 gm IVPUSH Q15M PRN; Protocol PRN Reason: per Hypoglycemia Standing Ord. Ferrous Sulfate (Ferrous Sulfate 324 Mg Tablet.) 324 mg PO DAILY [facility] Last Admin: 04/10/22 09:41 Dose: 324 mg Documented By: HAM Glucose (Glucose Gel 15 Gm Gel..Gram.) 15 gm PO Q15M PRN; Protocol PRN Reason: per Hypoglycemia Standing Ord. Fat Emulsion Intravenous (Intralipid) 144 mls @ 12 mls/hr IVCONT BID@0600,1800 [facility] Last Infusion: 04/16/22 11:56 Dose: 0 mls/hr Documented By: JOLIE-CONY Insulin Human Lispro (Insulin Lispro 100 Unit/Ml 3 Ml Vial) 0 unit SUBCUT QIDACHS [facility]; Protocol Last Admin: 04/20/22 08:01 Dose: Not Given Documented By: MOHAN Non-Admin Reason: No Insulin Coverage Magnesium Oxide (Magnesium Oxide 400 Mg Tablet) 400 mg PO BID [facility] Last Admin: 04/11/22 09:00 Dose: Not Given Documented By: BECKY Non-Admin Reason: Hold per Melatonin (Melatonin 3 Mg Tablet) 6 mg PO BEDTIME PRN PRN Reason: insomnia Nadolol (Nadolol 20 Mg Tablet) 20 mg PO DAILY [facility]; Protocol Last Admin: 04/20/22 08:00 Dose: 20 mg Documented By: MHOAN Olanzapine (Olanzapine 5 Mg Tablet) 5 mg PO BEDTIME [facility] Last Admin: 04/19/22 22:53 Dose: 5 mg Documented By: ELLIOT Ondansetron HCl (Ondansetron Hcl 4 Mg/2 Ml Vial) 4 mg IVPUSH Q6H PRN PRN Reason: Nausea Last Admin: 04/12/22 15:07 Dose: 4 mg Documented By: MOHAN Rifaximin (Rifaximin 550 Mg Tablet) 550 mg PO BID [facility] Last Admin: 04/20/22 08:00 Dose: 550 mg Documented By: MOHAN Sodium Bicarbonate (Sodium Bicarbonate 650 Mg Tablet) 650 mg PO BID [facility] Last Admin: 04/20/22 08:00 Dose: 650 mg Documented By: MOHAN Sodium Chloride (0.9 % Sodium Chloride Flush 3 Ml Syringe) 3 ml IVFLUSH QSHIFT [facility] Last Admin: 04/20/22 08:01 Dose: 3 ml Documented By: MOHAN Thiamine HCl (Thiamine Hcl 100 Mg Tablet) 100 mg PO DAILY [facility] Last Admin: 04/20/22 08:01 Dose: 100 mg Documented By: MOHAN Labs CBC & Chem 7: 04/20/22 10:12 04/18/22 08:36 Labs: Laboratory Results - last 24 hr 04/19/22 04/19/22 04/19/22 11:19 15:38 19:43 POC Glucose 228 H 238 H 184 H 04/20/22 07:33 POC Glucose 141 H Microbiology Microbiology Results: Microbiology 04/14/22 11:15 Blood Culture - Final Blood - Venous No growth after 5 days. 04/14/22 11:15 Blood Culture - Final Blood - Venous No growth after 5 days. Assessment and Plan (1) ANDREEA (acute kidney injury): Status: Acute (2) Bladder cancer: Status: Acute (3) Pneumonia: Status: Acute (4) Gross hematuria: Status: Acute Plan 76-year-old male presents unresponsive, hypotensive, hypothermic in the backdrop of active urinary sediment.? ?#acute hypoxemic respiratory failure- resolved -possible secondary hypoalbuminemia ,possible liver disease /cirrosis ,less likely CHF, pneumonia -echo : ef 55-60% On admission: chest x-ray-? Atelectasis /effusion, ABG reviewed- pH seems fine., ammonia? Fine. Continue suctioning prn,? chest physiotherapy Received Lasix for 1 day but seems like less likely CHF but more likely due to atelectasis/ hypoalbuminemia/treated for pneumonia 04/11 CXR shwoing low lung volumes with similar small right sided pleural effusions and increased right >left patchy parenchymal airspace opacities reflective of atelectasis vs superimposed infection. Started on zosyn and doxycycline, completed 5 days treatment #toxic metabolic encephalopathy :? Multifactorial(electrolytic abnormalities/poor oral intake/ dementia/zyprexa,andreea on ckd)- mentation now baseline CT head negative,mri reviewed by neuro,EEG due to fairly severe diffuse background slowing consistent with a diffuse encephalopathic process. neuro saw the patient-encephalopathy Possibly? related to multifactorial basis with? hypoxia, metabolic abnormalities and baseline dementia supportive care. -Resume scheduled zyprexa per psychiatry -Completed treatment for pneumonia. Repeat UA/UC negative for recurrent UTI. Recheck for UTI. CT abd/pelvis without acute findings #Acute pneumonia-resolved -04/11 CXR shwoing low lung cvolumes with similar small right sided pleural effusions and increased right >left patchy parenchymal airspace opacities reflective of atelectasis vs superimposed infection. Started on zosyn and doxycycline -Completed 5 days zosyn and doxyclycine. D/c'd #hx of HHC s/p ablation ,as well as hx of bladder cancer -Did not tolerate palliative immunotherapy. Follows with outpt urology [facility] who may be recommending palliative radiation therapy to stop bleeding/clots. Not a surgical candidate. -supportive care. -Continue CBI for hematuria. Required 3 units PRBC total during admission. Clots recurred overnight 04/15- requiring irrigation by nursing and urology. Continue CBI WO, now with light pink output, no clots -H/H dropped to 6.8/20.2%. Discussions around hospice have been initiated with nephew, but he is not ready to make the decision and would like patient transfused. Discussed that hematuria will be a recurrent issue and continuing transfusions will not resolve any long tterm issue. Hospice referral requested. 1 unit PRBC received. H/H improved to 9.1/26.5% this am -Family declines right sided nephrostomy tube -Follow CBC- H/H stable -CBI resumed due to clots recurring overnight -Will continue villareal on discharge given admission for obstructive nephropathy with left nephrostomy tube in place and persistent moderate/marked right ureterectasis diffusely, family refusing right nephrostomy tube, with background obstructive bladder cancer with recurrent hematuria. #UTI -resolved following 7 days abx. -UA/UC repeated 04/14 due to recurrent hypothermia with negative cultures. # Intermittent hypothermia -Likely secondary to poor nutrition, now eating better -Central line dc'd -Patient with subclinical hypothyroidism, not likely contributory -Olanzepine held for 4 days with recurrence of hypothermia. Not likely related to antipsychotis use -Not meeting other SIRS criteria, less likely related to infection -Maru oshea prn #Chronic normocytic anemia/thrombocytopenia -Multifactorial -H/H and PLT stable -Transfuse if hgb <7 -follow daily CBCs #Insulin dependent type 2 diabetes- glucose levels reasonably controlled -Continue PPN/diabetic diet -POC glucose -humalog SS #Dementia unspecified with agitated features -evaluated by pscyhiatry- olanzepine resumed, continue 5mg nightly ?#failure to thrive/hypoalbuminemia:? Eating better now, consuming most meals with Ensure. -Olanzepine resumed last night. Patient more oriented, hopefully with less paranoia. Encourage PO intake for meals -PPN discontinued, eating better -No TPN per family (nephewClif, HCP) -seen by speech and swallow -added diet. diet can be tailered as per menatl status- advanced to mechanical #andreea on ckd(stage unclear ,per family cr is between 2-3): multifactorial -ftt/bladder cancer ,hematuria- resolved cr trending down- now 1.89 as per family his basline cr is between 2-3 hold nephrotoxic meds ,iv hydration -Per nephrology continue LR, avoid nephrotoxic agents, dc octreotide -Resume NaHCO3, CO2<24 -Follow BMP #Hepatic cirrhosis -Rifampin/nadolol has been on hold 2/2 mental status. Resume nadolol and rifampin d/w Gi - ANDREEA less likely hepatorenal. As above above management discussed with patient family in detail length they understand and in agreement with the above , healthcare proxy Mr. Menezes- they understand the patient prognosis is poor, currently continue conservative management,Mr menezes -does not wnat tube feeding or HD. Further discussed prognosis with Clif finnegan. He wishes for palliative therapy for his uncle, but is not quite ready to make the decision to move to hospice. Referral is placed to hospice for further discussion. Nephivanna does wish for blood transfusion which was ordered with improve in H/H. Clif knows this will only improve anemia short term and hematuria will recur given bladder cancer. He has had discussions with [facility] about palliative radiation therapy to help stop bleeding, unsure if this can take place with hospice. Will continue hospice discussions outpatient. PPN discontinued. Encourage PO feeds. Patient medically cleared for discharge and scheduled to return to [facility] where patient previously resided. Family wishes for patient to be placed elsewhere but case management has been unable to secure a bed at other facilities. Patient nephew and healthcare proxy, Clif, has appealed decision for discharge and are awaiting decision from Medicare. Now patient again with clots related to bladder cancer with CBI again resumed as this will be a recurrent issue. Urology to have further discussions on prognosis and discharge with family. Full code Vena dynes boots-due to? Anemia/thrombocytopenia Time Spent With Patient Time: Total time managing care of this patient today ____ minutes. Quality Stroke Does the patient have a stroke diagnosis?: No VTE Prior VTE?: No VTE Risk Level:: Medical - moderate - high VTE Device Contraindication: N/A - Device Ordered VTE Drug Contraindication: Treatment Not Indicated
[2022-04-20 10:21] LABS: MANUAL DIFF FLAG NO
[2022-04-20 10:27] LABS: Basophils Percent Auto 0.4 % (0-2); Eosinophils Absolute Auto 0.1 X10*3/uL (0.0-0.4); Hematocrit 24.8 % (42.0-52.0); Hemoglobin 8.2 g/dl (14.0-18.0); Imm Gran Abs Auto 0.04 X10*3/uL (0.00-0.03); Imm Gran Pct Auto 0.8 % (0.0-0.4); Lymphocytes Absolute Auto 0.7 X10*3/uL (1.2-4.9); Lymphocytes Percent Auto 14.7 % (20-40); Mean Corpuscular HGB Conc 33.1 g/dl (31.0-36.0); Mean Corpuscular Hemoglobin 28.9 pg (27.0-33.0); Mean Corpuscular Volume 87.3 fL (80.0-98.0); Mean Platelet Volume 10.6 fL (9.4-12.4); Monocytes Absolute Auto 0.4 X10*3/uL (0.1-1.2); Monocytes Percent Auto 7.2 % (2-11); Neutrophils Absolute Auto 3.7 x10*3/uL (2.0-8.3); Neutrophils Percent Auto 74.9 % (45-73); Red Blood Count 2.84 X10*6/uL (4.60-5.80); White Blood Count 4.9 X10*3/uL (4.8-10.8)
[2022-04-20 10:30] LABS: Platelet Count 94 X10*3/uL (160-400)
--- NOTE | 2022-04-20 10:30 | PC.NURSE ---
late entry Brenda MARTIN. ordered to DC TLC and TLC was removed yesterday at 1430. pt tolerated well, and TLC tip was intact.
[2022-04-20 10:58] VITALS: BP 141/74; PULSE 68; RESP 16; TEMP 36.1; O2SAT 94
--- NOTE | 2022-04-20 11:04 | PM.PNNEP ---
Subjective Subjective Date of Service: 04/20/22 Interval history: Seen and examiend, events noted Physical Exam Vital Signs: Vital Signs: Last Vital Signs Temp 96.9 F 04/20/22 10:58 Pulse 68 04/20/22 10:58 Resp 16 04/20/22 10:58 BP 141/74 H 04/20/22 10:58 Pulse Ox 94 04/20/22 10:58 O2 Del Method 04/20/22 10:58 O2 Flow Rate 3 04/17/22 10:57 Oxygen Flow Rate 4 03/31/22 10:53 BMI result Body Mass Index 29.5 Const: General: no acute distress, ill appearing and lethargic Orientation/consciousness: oriented to person, oriented to place and lethargic Neck: Other: supple Neck: Yes supple Chest: Other: clear Resp: Effort & Inspection: no respiratory distress Cardio: Other: RRR Heart sounds: no murmurs and no rubs GI: Palpation (GI): Soft to palpation Neuro: General: oriented to person and oriented to place Extrem: General: Yes normal to inspection, No clubbing and No cyanosis Objective Data Labs CBC & Chem 7: 04/20/22 10:12 04/18/22 08:36 Labs: Laboratory Results - last 24 hr 04/19/22 04/19/22 04/19/22 11:19 15:38 19:43 WBC RBC Hgb Hct MCV MCH MCHC RDW Plt Count MPV Immature Gran % (Auto) Neut % (Auto) Lymph % (Auto) [place] % (Auto) Eos % (Auto) Baso % (Auto) Lymph # (Auto) [place] # (Auto) Eos # (Auto) Baso # (Auto) Abs Immat Gran (auto) Absolute Neuts (auto) Absolute Nucleated RBC Nucleated RBC % (auto) POC Glucose 228 H 238 H 184 H 04/20/22 04/20/22 04/20/22 00:13 07:33 10:12 WBC 4.9 RBC 2.84 L Hgb 9.0 L 8.2 L Hct 26.4 L 24.8 L MCV 87.3 MCH 28.9 MCHC 33.1 RDW 16.0 Plt Count 94 L MPV 10.6 Immature Gran % (Auto) 0.8 H Neut % (Auto) 74.9 H Lymph % (Auto) 14.7 L [place] % (Auto) 7.2 Eos % (Auto) 2.0 Baso % (Auto) 0.4 Lymph # (Auto) 0.7 L [place] # (Auto) 0.4 Eos # (Auto) 0.1 Baso # (Auto) 0.0 Abs Immat Gran (auto) 0.04 H Absolute Neuts (auto) 3.7 Absolute Nucleated RBC 0.000 Nucleated RBC % (auto) 0.0 POC Glucose 141 H Microbiology Microbiology Results: Microbiology 04/14/22 11:15 Blood - Venous Blood Culture - Final No growth after 5 days. 04/14/22 11:15 Blood - Venous Blood Culture - Final No growth after 5 days. 04/14/22 00:00 Urine clean catch - Urine villavicencio top Urine Culture - Final No growth. 03/31/22 15:07 Blood - Venous Blood Culture - Final No growth after 5 days. 03/31/22 15:07 Blood - Venous Blood Culture - Final No growth after 5 days. 03/31/22 00:00 Urine Other - Nephrostomy Urine Culture - Final Staphylococcus cohnii ssp urea 03/31/22 15:02 Blood - Venous Blood Culture - Final 03/31/22 15:02 Blood - Venous Blood Culture - Final Procedures Date of Service Date of Service: 04/20/22 Assessment & Plan Assessment and plan (1) ANDREEA (acute kidney injury): Status: Acute (2) Gross hematuria: Status: Acute (3) Diabetes type 2, controlled: Status: Acute (4) Sepsis: Status: Acute (5) Obstructive nephropathy: Status: Acute Plan 1. ANDREEA: peak SCr 5.2 noew back to BSL 1.9; multifact including Obs and dehydration 2. Obs uropathy: L PCN tue; and R hydro--per chart PT/family donot want R PCN tube 3. Anemia: will track as outpt as may be candidate for IV Fe and/or epo No DIRECTOR SPEECH LANGUAGE per PT/family ( noted by Dr Woods d/w nephew) REC: check Fe studies and renal labs in am; ok to d/c from renal standpoint; I will arrange f/u as outpt Time Spent With Patient Time: Total time managing care of this patient today ____ minutes. Progress Note: Quality Stroke Does the patient have a stroke diagnosis?: No
[2022-04-20 11:22] LABS: Glucose, Whole Blood 213 mg/dL (60-115)
[2022-04-20] MEDS: Insulin Lispro 100 UNIT/ML 3 ML VIAL SUBCUT ×3 (13:05→21:44)
--- NOTE | 2022-04-20 14:07 | MHC.SL.SWA ---
Speech Pathologist Impression: Risk of Aspiration Due to: Medically Fragile Poor PO Intake Reduced Cognition Weak Cough Dysphasia Diet Status: Recommend continue Ground/Mechanical Altered (NDD2), with THIN liquids by controlled cup sip only, continue with pills crushed in puree. Liquid Consistency and Strategies for Safe Swallow: Liquid Intake Recommendation: Thin Liquid Intake Strategies: Small Sips No Straws Solid Food Consistency: Dietary Recommendations: Grnd/Mech Altered (NDD2) Additional Modifications to Solid Foods: Patient will need 1-1 feeding with close monitor for swallow before presenting any additional food/liquid, strict monitor for aspiration signs. Oral Medication Intake: Crushed with Puree Please contact the pharmacy regarding appropriate crushable or liquid drug formulations that are available whenever modified delivery is recommended. Compensatory Strategies and Precautions to be Taken for Safe Swallow: Sitting Upright (90 deg) No Straw Small Bites and Sips Alternate Liquids/Solids Rate of Ingestion Change Oral Check Supervision While Eating and Drinking for Safe Swallow: Total Assistance (1:1) Foods to Avoid: Mixed consistencies (e.g. cereal with milk, thin broth soups with vegetable and meat pieces). Swallowing Recommended Treatments: Compens. Strategy Educat. Recommendation for Speech: Further Testing Needed Outpatient Speech Therapy Inpatient Speech Therapy Comment: Patient's diet was advanced yesterday to Ground Mechanical/Altered (NDD2) with thin liquids by PA at request of patient's nephew. JUNIOR MECHANICAL ENGINEER observed patient at lunch today for toleration of these textures. Patient was being fed by sitter, lunch tray had turkey meatloaf, mashed potatoes, ground green beans. Patient was observed taking a few mouthfuls of the ground meat consistency with patient producing a slow rotary chew, mild swallow delay, no clinical signs of aspiration. After a few mouthfuls patient stated no more, however SHIPS OR BARGES LOADER was able to get him to accept a few more bites. Patient was observed taking sips of apple juice, with timely oral transit observed, mild delay initiating swallow, no clinical signs of aspiration. Patent appears to be tolerating these diet consistencies well, though continues to eat very little at meals. Recommend continue on Ground Mechanical/Altered with Thin liquids, pills crushed in puree. Frequency/Duration: Date Range for Service Req: Timeline to reassess: Mechanical Engineering Technician Clinican/Clinical Fellow: No Supervisory Statement: I have reviewed and agree with the student/clinical fellow's documentation: N/A Speech Language Pathologist: Samantha Shirley M.A., [facility]-JUNIOR MECHANICAL ENGINEER
[2022-04-20 15:33] VITALS: BP 166/105; PULSE 69; RESP 16; TEMP 36.4; O2SAT 96
[2022-04-20 16:02] LABS: Glucose, Whole Blood 270 mg/dL (60-115)
--- NOTE | 2022-04-20 16:14 | MHC.CM.PN ---
Anticipate discharge tomorrow. [facility] has gone for authorization. This auth was not requested by this tag writer. Spoke with Brenda MARTIN re discharge. Discharge is planned for tomorrow. Patient will return to [facility] via [facility].
[2022-04-20 19:07] VITALS: BP 144/67; PULSE 65; RESP 16; TEMP 36.1; O2SAT 96
[2022-04-20 20:50] LABS: Glucose, Whole Blood 215 mg/dL (60-115)
[2022-04-20] MEDS: OLANZapine 5 MG TABLET PO (21:44)
[2022-04-21] VITALS (9 sets, daily range): BP systolic 102–151; BP diastolic 58–78; PULSE 62–114; RESP 16–22; TEMP 35.4–37.9; O2SAT 72–100
--- NOTE | 2022-04-21 04:58 | PC.NURSE ---
Pts O2 level was 85% on RA so she was given a breathing treatment by respiratory and O2 was put back on her via NC @ 2L. After the O2 her level came up to 93%.
--- NOTE | 2022-04-21 05:22 | PC.NURSE ---
Pts rectal temperature was 95.7. I let Dr. Kimbrough know and applied the bear hugger since he had standing orders.
[2022-04-21 06:51] LABS: Anion Gap 13 (12-20); Blood Urea Nitrogen 31 mg/dL (9-16); Calcium 8.1 mg/dL (8.4-10.2); Carbon Dioxide 21 mmol/L (22-29); Chloride 117 mmol/L (96-108); Creatinine Clr Calc Pharmacy 40.1; Estimated Glomerular Filt Rate 43; Glucose Random 129 mg/dL (60-115); Iron 86 mcg/dL (45-160); Percent Iron Saturation 48 % (15-50); Potassium 4.6 mmol/L (3.3-5.1); Sodium 146 mmol/L (135-145); Total Iron Binding Capacity 179 mcg/dL (228-428); Unsaturated Iron Binding 93 ug/dL
[2022-04-21 07:35] LABS: Glucose, Whole Blood 134 mg/dL (60-115)
[2022-04-21 11:15] LABS: Glucose, Whole Blood 288 mg/dL (60-115)
[2022-04-21] MEDS: 0.9 % Sodium Chloride Flush 3 ML SYRINGE IVFLUSH ×2 (11:23→21:32)
--- NOTE | 2022-04-21 11:31 | HO.PM.IMPN ---
Subjective Subjective Date of Service: 04/21/22 Interval History: cc: ams interval history: minimally responsive Review of Systems Review of Systems: Yes Unobtainable due to mental status Physical Exam Vital Signs: Vital Signs: Last Vital Signs Temp 100.2 F 04/21/22 11:07 Pulse 114 H 04/21/22 11:07 Resp 22 H 04/21/22 11:07 BP 119/64 04/21/22 11:07 Pulse Ox 87 L 04/21/22 11:07 O2 Del Method 04/21/22 11:07 O2 Flow Rate 3 04/21/22 11:07 Oxygen Flow Rate 4 03/31/22 10:53 BMI result Body Mass Index 29.5 General: obtunded, ill appearing Resp: diminished bilateral, tachypnea CVS: S1,S2,RRR GI: soft, non tender, non distended Neuro: obtunded, poor/no gag on nasal suction Psych: imapired insight Objective Data Active Medications Acetaminophen (Acetaminophen 325 Mg Tablet) 650 mg PO Q6H PRN PRN Reason: Pain, Mild (Pain Scale 1-3) Last Admin: 04/09/22 21:49 Dose: 650 mg Documented By: JOVANNI Amlodipine Besylate (Amlodipine Besylate 10 Mg Tablet) 10 mg PO DAILY [facility]; Protocol Last Admin: 04/21/22 10:47 Dose: Not Given Documented By: KEN Non-Admin Reason: Patient Condition Contraindication Aspirin (Aspirin 81 Mg Tab.Chew) 81 mg PO DAILY [facility] Last Admin: 04/06/22 09:04 Dose: Not Given Documented By: BIANCA Non-Admin Reason: See Note Atorvastatin Calcium (Atorvastatin Calcium 40 Mg Tablet) 40 mg PO DAILY [facility] Last Admin: 04/06/22 09:04 Dose: Not Given Documented By: BIANCA Non-Admin Reason: See Note Dextrose (Dextrose 50 % 25 Gm/50 Ml Syringe) 25 gm IVPUSH Q15M PRN; Protocol PRN Reason: per Hypoglycemia Standing Ord. Ferrous Sulfate (Ferrous Sulfate 324 Mg Tablet.) 324 mg PO DAILY [facility] Last Admin: 04/10/22 09:41 Dose: 324 mg Documented By: HAM Glucose (Glucose Gel 15 Gm Gel..Gram.) 15 gm PO Q15M PRN; Protocol PRN Reason: per Hypoglycemia Standing Ord. Fat Emulsion Intravenous (Intralipid) 144 mls @ 12 mls/hr IVCONT BID@0600,1800 [facility] Last Infusion: 04/16/22 11:56 Dose: 0 mls/hr Documented By: N-CONY Insulin Human Lispro (Insulin Lispro 100 Unit/Ml 3 Ml Vial) 0 unit SUBCUT QIDACHS [facility]; Protocol Last Admin: 04/21/22 07:42 Dose: Not Given Documented By: KEN Non-Admin Reason: No Insulin Coverage Magnesium Oxide (Magnesium Oxide 400 Mg Tablet) 400 mg PO BID [facility] Last Admin: 04/11/22 09:00 Dose: Not Given Documented By: BECKY Non-Admin Reason: Hold per MD Melatonin (Melatonin 3 Mg Tablet) 6 mg PO BEDTIME PRN PRN Reason: insomnia Nadolol (Nadolol 20 Mg Tablet) 20 mg PO DAILY [facility]; Protocol Last Admin: 04/21/22 10:47 Dose: Not Given Documented By: KEN Non-Admin Reason: Patient Condition Contraindication Ondansetron HCl (Ondansetron Hcl 4 Mg/2 Ml Vial) 4 mg IVPUSH Q6H PRN PRN Reason: Nausea Last Admin: 04/12/22 15:07 Dose: 4 mg Documented By: MOHAN Rifaximin (Rifaximin 550 Mg Tablet) 550 mg PO BID [facility] Last Admin: 04/21/22 10:47 Dose: Not Given Documented By: KEN Non-Admin Reason: Patient Condition Contraindication Sodium Bicarbonate (Sodium Bicarbonate 650 Mg Tablet) 650 mg PO BID [facility] Last Admin: 04/21/22 10:47 Dose: Not Given Documented By: KEN Non-Admin Reason: Patient Condition Contraindication Sodium Chloride (0.9 % Sodium Chloride Flush 3 Ml Syringe) 3 ml IVFLUSH QSHIFT [facility] Last Admin: 04/21/22 11:23 Dose: 3 ml Documented By: KEN Thiamine HCl (Thiamine Hcl 100 Mg Tablet) 100 mg PO DAILY [facility] Last Admin: 04/21/22 10:48 Dose: Not Given Documented By: KEN Non-Admin Reason: Patient Condition Contraindication Triamcinolone Acetonide (Triamcinolone Acet 0.1 % Cream 15 Gm Tube) 1 appl TOPICAL BID PRN; Protocol PRN Reason: Rash Labs CBC & Chem 7: 04/20/22 10:12 04/21/22 05:54 Labs: Laboratory Results - last 24 hr 04/20/22 04/20/22 04/21/22 15:59 20:39 05:54 Anion Gap 13 Estim Creat Clear Calc 40.1 Estimated GFR 43 POC Glucose 270 H 215 H Random Glucose 129 H Calcium 8.1 L Iron 86 TIBC 179 L % Saturation 48 Unsat Iron Binding 93 04/21/22 04/21/22 07:32 11:05 Anion Gap Estim Creat Clear Calc Estimated GFR POC Glucose 134 H 288 H Random Glucose Calcium Iron TIBC % Saturation Unsat Iron Binding Assessment and Plan (1) ANDREEA (acute kidney injury): Status: Acute (2) Bladder cancer: Status: Acute (3) Pneumonia: Status: Acute (4) Gross hematuria: Status: Acute Plan 76-year-old male presents unresponsive, hypotensive, hypothermic in the backdrop of active urinary sediment.? ?acute hypoxemic respiratory failure, toxic/metabolic encephalopathy, hypothermia mutlifcatorial -possible secondary hypoalbuminemia ,possible liver disease /cirrosis ,less likely CHF, pneumonia -echo : ef 55-60% On admission: chest x-ray-? Atelectasis /effusion, ABG reviewed- pH seems fine., ammonia? Fine. Continue suctioning prn,? chest physiotherapy Received Lasix for 1 day but seems like less likely CHF but more likely due to atelectasis/ hypoalbuminemia/treated for pneumonia 04/11 CXR shwoing low lung volumes with similar small right sided pleural effusions and increased right >left patchy parenchymal airspace opacities reflective of atelectasis vs superimposed infection. Started on zosyn and doxycycline, completed 5 days treatment worsened this AM, placing on high flow toxic metabolic encephalopathy :? Multifactorial(electrolytic abnormalities/poor oral intake/ dementia/zyprexa,andreea on ckd)- mentation now baseline CT head negative,mri reviewed by neuro,EEG due to fairly severe diffuse background slowing consistent with a diffuse encephalopathic process. neuro saw the patient-encephalopathy Possibly? related to multifactorial basis with? hypoxia, metabolic abnormalities and baseline dementia supportive care. -Resume scheduled zyprexa per psychiatry once taking po again -Completed treatment for pneumonia. Repeat UA/UC negative for recurrent UTI. Recheck for UTI. CT abd/pelvis without acute findings Acute pneumonia-resolved -Completed 5 days zosyn and doxyclycine. D/c'd hx of HHC s/p ablation ,as well as hx of bladder cancer -Did not tolerate palliative immunotherapy. Follows with outpt urology [facility] who may be recommending palliative radiation therapy to stop bleeding/clots. Not a surgical candidate. -supportive care. -Continue CBI for hematuria. Required 3 units PRBC total during admission. Clots recurred overnight 04/15- requiring irrigation by nursing and urology. Continue CBI WO, now with light pink output, no clots -H/H dropped to 6.8/20.2%. Discussions around hospice have been initiated with nephew, but he is not ready to make the decision and would like patient transfused. Discussed that hematuria will be a recurrent issue and continuing transfusions will not resolve any long tterm issue. Hospice referral requested. 1 unit PRBC received. H/H improved -Family declines right sided nephrostomy tube -Follow CBC- H/H stable -Will continue villareal on discharge given admission for obstructive nephropathy with left nephrostomy tube in place and persistent moderate/marked right ureterectasis diffusely, family refusing right nephrostomy tube, with background obstructive bladder cancer with recurrent hematuria. UTI -resolved Intermittent hypothermia likely central, doubt infection -Patient with subclinical hypothyroidism, not likely contributory -Olanzepine held for 4 days with recurrence of hypothermia. Not likely related to antipsychotis use -Not meeting other SIRS criteria, less likely related to infection -Maru oshea prn Chronic normocytic anemia/thrombocytopenia -Multifactorial -H/H and PLT stable -Transfuse if hgb <7 -follow daily CBCs Insulin dependent type 2 diabetes- glucose levels reasonably controlled -Continue PPN/diabetic diet -POC glucose -humalog SS Dementia unspecified with agitated features -evaluated by pscyhiatry- olanzepine, continue 5mg nightly when taking po failure to thrive/hypoalbuminemia NDD2 with thins when more awake andreea on ckd(stage unclear ,per family cr is between 2-3): multifactorial -ftt/bladder cancer ,hematuria- resolved cr trending down -Resume NaHCO3, CO2<24 -Follow BMP Hepatic cirrhosis -Rifaximin/nadolol has been on hold 2/2 mental status. Resume nadolol and rifaximin DNR/DNI Vena dynes boots-due to? Anemia/thrombocytopenia reason for continued hospitalization:hypoxic, worsening mental status Time Spent With Patient Time: Total time managing care of this patient today ____ minutes. Quality Stroke Does the patient have a stroke diagnosis?: No VTE Prior VTE?: No VTE Risk Level:: Medical - moderate - high VTE Device Contraindication: N/A - Device Ordered VTE Drug Contraindication: Treatment Not Indicated
[2022-04-21 12:01] LABS: Venous Blood Gas Refer to POC result
[2022-04-21 12:01] LABS: VBG HCO3 22 mmol/L (22-26); VBG pCO2 31 mmHg; VBG pH 7.45 (7.32-7.43); VBG pO2 80 mmHg
[2022-04-21 12:02] LABS: Hematocrit 23.6 % (42.0-52.0); Mean Corpuscular HGB Conc 33.9 g/dl (31.0-36.0); Mean Corpuscular Hemoglobin 29.1 pg (27.0-33.0); Mean Corpuscular Volume 85.8 fL (80.0-98.0); Mean Platelet Volume 10.2 fL (9.4-12.4); Platelet Count 107 X10*3/uL (160-400); Red Blood Count 2.75 X10*6/uL (4.60-5.80); Red Cell Distribution Width 16.6 % (11.0-16.0); White Blood Count 7.6 X10*3/uL (4.8-10.8)
--- NOTE | 2022-04-21 12:08 | MHC.CM.PN ---
Per MD rounds, no dc today. Patient required a Bearhugger for Hypothermia. Notified [facility] that discharge is on hold today.
[2022-04-21 12:15] LABS: Ammonia 33 umol/L (13-55)
[2022-04-21 12:21] LABS: Alanine Aminotransferase 51 U/L (0-40); Albumin Level 3.1 g/dL (3.5-5.0); Alkaline Phosphatase 325 U/L (39-117); Aspartate Amino Transferase 33 U/L (5-37); Bilirubin Direct 0.3 mg/dL (0.0-0.5); Total Protein 5.6 g/dL (6.5-8.0)
[2022-04-21] MEDS: Insulin Lispro 100 UNIT/ML 3 ML VIAL SUBCUT (12:43)
[2022-04-21] MEDS: Acetaminophen 1,000 MG/100 ML PIGGYBACK 400 MG IV (12:43)
[2022-04-21 13:31] LABS: Anion Gap 11 (12-20); Blood Urea Nitrogen 34 mg/dL (9-16); Calcium 8.5 mg/dL (8.4-10.2); Carbon Dioxide 23 mmol/L (22-29); Chloride 115 mmol/L (96-108); Creatinine Clr Calc Pharmacy 32.2; Estimated Glomerular Filt Rate 34; Glucose Random 203 mg/dL (60-115); Sodium 144 mmol/L (135-145)
--- NOTE | 2022-04-21 14:07 | MHC.CLN ---
F/U PO INTAKE 75/100X2 MEALS PT IS OBTUNDED AT THIS TIME AND REQUIRES FULL ASSIST WITH MEALS DIET RX: GRD M/S DIET-APPROPRIATE PER SHOP TEACHER PT RECEIVING ENSURE TID TO INCREASE KCALS SUPP PROVIDES 1050KCALS, 60G PROTEIN WITH 100% ACCEPTANCE, HOWEVER PT ACCEPTS VERY SMALL AMOUNTS OF PO WHEN ABLE CONTINUE TO MONITOR PO INTAKE CLOSELY CONSULT RD IF PPN TO RE-START
[2022-04-21 14:09] LABS: Bilirubin Total 0.7 mg/dL (0.0-1.0)
[2022-04-21] MEDS: cefTRIAXone sodium 1 GM in 0.9 % Sodium Chloride 50 ML IV (14:52)
[2022-04-21 14:57] LABS: Lactic Acid 2.1 mmol/L (0.5-2.0)
[2022-04-21 15:31] LABS: Glucose, Whole Blood 89 mg/dL (60-115)
--- NOTE | 2022-04-21 15:41 | MHC.SLORD ---
Addendum entered and electronically signed by Florecita Ba MA, CCC-FURNITURE SPRAYER 04/21/22 16:47: D.S. Original Note: Speech Language Pathology Order Status: FURNITURE SPRAYER attempted to see pt for dysphagia tx this afternoon. Pt did not awake to verbal stimuli or bed positioning changes for RN or FURNITURE SPRAYER. Pt not appropriate for PO trials d/t lethargic state. RN reports pt has not opened eyes for her today. RN reported observing newphew feeding; reported nothing went down noting anterior bolus loss and reduced labial movement. Pt has reportedly been on highflow O2 since 11:30. Currently on 50L at 60%.
[2022-04-21 16:10] LABS: Reflex Lactate? Lactic Acid Added
[2022-04-21 16:59] LABS: ~Lactic Acid-LAB USE ONLY 2.2 mmol/L (0.5-2.0)
[2022-04-21 18:28] LABS: Reflex Lactate? 2 Y
--- NOTE | 2022-04-21 19:16 | PC.NURSE ---
CBI clamped at 11:[address] Sousa's verbal order
[2022-04-21 19:40] LABS: Glucose, Whole Blood 91 mg/dL (60-115)
[2022-04-21 19:51] LABS: ~Lactic Acid-LAB USE ONLY 1.4 mmol/L (0.5-2.0)
[2022-04-22] VITALS (11 sets, daily range): BP systolic 117–140; BP diastolic 58–69; PULSE 68–84; RESP 16–20; TEMP 35.7–36.8; O2SAT 94–100
[2022-04-22 06:48] LABS: Hematocrit 22.3 % (42.0-52.0); Hemoglobin 7.2 g/dl (14.0-18.0); Mean Corpuscular HGB Conc 32.3 g/dl (31.0-36.0); Mean Corpuscular Hemoglobin 28.8 pg (27.0-33.0); Mean Corpuscular Volume 89.2 fL (80.0-98.0); Mean Platelet Volume 10.5 fL (9.4-12.4); White Blood Count 11.8 X10*3/uL (4.8-10.8)
[2022-04-22 06:49] LABS: Platelet Count 94 X10*3/uL (160-400)
[2022-04-22 07:14] LABS: Anion Gap 14 (12-20); Blood Urea Nitrogen 35 mg/dL (9-16); Calcium 8.2 mg/dL (8.4-10.2); Carbon Dioxide 21 mmol/L (22-29); Chloride 117 mmol/L (96-108); Creatinine Clr Calc Pharmacy 26.6; Estimated Glomerular Filt Rate 27; Glucose Fasting 118 mg/dL (60-99); Potassium 5.1 mmol/L (3.3-5.1); Sodium 147 mmol/L (135-145)
[2022-04-22 07:41] LABS: Glucose, Whole Blood 122 mg/dL (60-115)
[2022-04-22] MEDS: rifAXIMin 550 MG TABLET PO ×2 (08:41→20:44)
[2022-04-22] MEDS: nadoloL 20 MG TABLET PO (08:41)
[2022-04-22] MEDS: Sodium Bicarbonate 650 MG TABLET PO ×2 (08:41→20:44)
[2022-04-22] MEDS: Thiamine HCL 100 MG TABLET PO (08:41)
[2022-04-22] MEDS: amLODIPine Besylate 10 MG TABLET PO (08:41)
--- NOTE | 2022-04-22 11:19 | PM.PNNEP ---
Subjective Subjective Date of Service: 04/22/22 Interval history: Seen and examined, events noted Physical Exam Vital Signs: Vital Signs: Last Vital Signs Temp 98.3 F 04/22/22 07:25 Pulse 78 04/22/22 09:28 Resp 18 04/22/22 09:28 BP 121/69 04/22/22 07:25 Pulse Ox 98 04/22/22 09:28 O2 Del Method 04/22/22 07:25 O2 Flow Rate 50 04/22/22 07:25 FiO2 50 04/22/22 07:25 Oxygen Flow Rate 4 03/31/22 10:53 BMI result Body Mass Index 29.5 Const: General: no acute distress, ill appearing and lethargic Orientation/consciousness: oriented to person, oriented to place and lethargic Neck: Other: supple Neck: Yes supple Chest: Other: clear Resp: Effort & Inspection: no respiratory distress Cardio: Other: RRR Heart sounds: no murmurs and no rubs GI: Palpation (GI): Soft to palpation Neuro: General: oriented to person and oriented to place Extrem: General: Yes normal to inspection, No clubbing and No cyanosis Objective Data Labs CBC & Chem 7: 04/22/22 06:18 04/22/22 06:18 Labs: Laboratory Results - last 24 hr 04/21/22 04/21/22 04/21/22 11:48 11:48 11:48 WBC 7.6 RBC 2.75 L Hgb 8.0 L Hct 23.6 L MCV 85.8 MCH 29.1 MCHC 33.9 RDW 16.6 H Plt Count 107 L MPV 10.2 Absolute Nucleated RBC 0.000 Nucleated RBC % (auto) 0.0 VBG pH VBG pCO2 VBG pO2 VBG HCO3 VBG O2 Saturation VBG Base Excess Sodium 144 Potassium 5.0 Chloride 115 H Carbon Dioxide 23 Anion Gap 11 L BUN 34 H D Creatinine 1.94 H Estim Creat Clear Calc 32.2 Estimated GFR 34 POC Glucose Random Glucose 203 H D Fasting Glucose Lactic Acid Lactic Acid F/U @ 2Hr Lactic Acid F/U @ 4Hr Calcium 8.5 Total Bilirubin 0.7 Direct Bilirubin 0.3 AST 33 ALT 51 H Alkaline Phosphatase 325 H D Ammonia 33 Total Protein 5.6 L Albumin 3.1 L 12/14/22 12/14/22 12/14/22 11:56 13:59 15:19 WBC RBC Hgb Hct MCV MCH MCHC RDW Plt Count MPV Absolute Nucleated RBC Nucleated RBC % (auto) VBG pH 7.45 H VBG pCO2 31 VBG pO2 80 VBG HCO3 22 VBG O2 Saturation 97.0 VBG Base Excess -1.0 Sodium Potassium Chloride Carbon Dioxide Anion Gap BUN Creatinine Estim Creat Clear Calc Estimated GFR POC Glucose 89 Random Glucose Fasting Glucose Lactic Acid 2.1 H* Lactic Acid F/U @ 2Hr Lactic Acid F/U @ 4Hr Calcium Total Bilirubin Direct Bilirubin AST ALT Alkaline Phosphatase Ammonia Total Protein Albumin 04/21/22 04/21/22 04/21/22 16:24 19:24 19:24 WBC RBC Hgb Hct MCV MCH MCHC RDW Plt Count MPV Absolute Nucleated RBC Nucleated RBC % (auto) VBG pH VBG pCO2 VBG pO2 VBG HCO3 VBG O2 Saturation VBG Base Excess Sodium Potassium Chloride Carbon Dioxide Anion Gap BUN Creatinine Estim Creat Clear Calc Estimated GFR POC Glucose 91 Random Glucose Fasting Glucose Lactic Acid Lactic Acid F/U @ 2Hr 2.2 H* Lactic Acid F/U @ 4Hr 1.4 Calcium Total Bilirubin Direct Bilirubin AST ALT Alkaline Phosphatase Ammonia Total Protein Albumin 04/22/22 04/22/22 04/22/22 06:18 06:18 07:28 WBC 11.8 H RBC 2.50 L Hgb 7.2 L Hct 22.3 L MCV 89.2 MCH 28.8 MCHC 32.3 RDW 17.0 H Plt Count 94 L MPV 10.5 Absolute Nucleated RBC 0.000 Nucleated RBC % (auto) 0.0 VBG pH VBG pCO2 VBG pO2 VBG HCO3 VBG O2 Saturation VBG Base Excess Sodium 147 H Potassium 5.1 Chloride 117 H Carbon Dioxide 21 L Anion Gap 14 BUN 35 H Creatinine 2.35 H Estim Creat Clear Calc 26.6 Estimated GFR 27 POC Glucose 122 H Random Glucose Fasting Glucose 118 H Lactic Acid Lactic Acid F/U @ 2Hr Lactic Acid F/U @ 4Hr Calcium 8.2 L Total Bilirubin Direct Bilirubin AST ALT Alkaline Phosphatase Ammonia Total Protein Albumin Microbiology Microbiology Results: Microbiology 04/14/22 11:15 Blood - Venous Blood Culture - Final No growth after 5 days. 04/14/22 11:15 Blood - Venous Blood Culture - Final No growth after 5 days. 04/14/22 00:00 Urine clean catch - Urine villavicencio top Urine Culture - Final No growth. 03/31/22 15:07 Blood - Venous Blood Culture - Final No growth after 5 days. 03/31/22 15:07 Blood - Venous Blood Culture - Final No growth after 5 days. 03/31/22 00:00 Urine Other - Nephrostomy Urine Culture - Final Staphylococcus cohnii ssp urea 03/31/22 15:02 Blood - Venous Blood Culture - Final 03/31/22 15:02 Blood - Venous Blood Culture - Final Procedures Date of Service Date of Service: 04/22/22 Assessment & Plan Assessment and plan (1) ANDREEA (acute kidney injury): Status: Acute (2) Gross hematuria: Status: Acute (3) Diabetes type 2, controlled: Status: Acute (4) Sepsis: Status: Acute (5) Obstructive nephropathy: Status: Acute Plan 1. ANDREEA: peak SCr 5.2 noew back to BSL 1.9;slt bump inSCr past 48 hrs---multifact including Obs and dehydration 2. Obs uropathy: L PCN tue; and R hydro--per chart PT/family donot want R PCN tube 3. Anemia: will track as outpt--Fe stores ok; will start epo No CHIEF RADIATION THERAPIST per PT/family ( noted by Dr Woods d/w nephew) REC: track renal func; avoid NToxins; epo as ordered; I will arrange f/u as outpt Time Spent With Patient Time: Total time managing care of this patient today ____ minutes. Progress Note: Quality Stroke Does the patient have a stroke diagnosis?: No
--- NOTE | 2022-04-22 11:22 | PM.PNNEP ---
Subjective Subjective Date of Service: 04/22/22 Interval history: Seen and examined, events noted Physical Exam Vital Signs: Vital Signs: Last Vital Signs Temp 98.3 F 04/22/22 07:25 Pulse 78 04/22/22 09:28 Resp 18 04/22/22 09:28 BP 121/69 04/22/22 07:25 Pulse Ox 98 04/22/22 09:28 O2 Del Method 04/22/22 07:25 O2 Flow Rate 50 04/22/22 07:25 FiO2 50 04/22/22 07:25 Oxygen Flow Rate 4 03/31/22 10:53 BMI result Body Mass Index 29.5 Const: Other: sleepy but arousable to verbal stimuli General: no acute distress, ill appearing and lethargic Nutritional Appearance: overweight and Edematous Orientation/consciousness: oriented to person, oriented to place and lethargic HEENT: Head: Yes normocephalic and Yes atraumatic Face and sinus: Yes normal facial exam Mouth: moist mucous membranes Eyes: Sclerae: sclerae normal EOM: EOMs intact bilaterally Neck: Other: supple Neck: Yes supple Chest: Other: clear Chest palpation & inspection: normal inspection of the chest Resp: Other: diminished breath sounds left basilar crackles Effort & Inspection: no respiratory distress Auscultation: crackles (Diffuse bilateral) Cardio: Other: RRR Rate: regular rate Rhythm: regular rhythm Heart sounds: no murmurs and no rubs GI: Other: slt distended,decreased bowel sounds Inspection: Yes normal to inspection and No distended Palpation (GI): Soft to palpation Auscultation: normal bowel sounds : Other: villareal in place, pink output left nephrostomy tube in place Penis: normal penis Scrotum: scrotum normal Back/Spine/Pelvis: Other: Percutaneous nephrostomy tube draining clear fluid; flushes well per nursing Cervical Spine: normal cervical lordosis Thoracic/Lumbar Spine: thoracic and lumbar spine normal to inspection Skin: General skin exam: no rashes or lesions noted Neuro: Other: limited assessment moving all extremities, no focal deficits appreciated General: oriented to person and oriented to place Extrem: Other: No edema bilaterally General: Yes normal to inspection, No clubbing and No cyanosis Psych: Other: somnolence Objective Data Labs CBC & Chem 7: 04/23/22 06:37 04/23/22 06:37 Labs: Laboratory Results - last 24 hr 04/21/22 04/21/22 04/21/22 11:48 11:48 11:48 WBC 7.6 RBC 2.75 L Hgb 8.0 L Hct 23.6 L MCV 85.8 MCH 29.1 MCHC 33.9 RDW 16.6 H Plt Count 107 L MPV 10.2 Absolute Nucleated RBC 0.000 Nucleated RBC % (auto) 0.0 VBG pH VBG pCO2 VBG pO2 VBG HCO3 VBG O2 Saturation VBG Base Excess Sodium 144 Potassium 5.0 Chloride 115 H Carbon Dioxide 23 Anion Gap 11 L BUN 34 H D Creatinine 1.94 H Estim Creat Clear Calc 32.2 Estimated GFR 34 POC Glucose Random Glucose 203 H D Fasting Glucose Lactic Acid Lactic Acid F/U @ 2Hr Lactic Acid F/U @ 4Hr Calcium 8.5 Total Bilirubin 0.7 Direct Bilirubin 0.3 AST 33 ALT 51 H Alkaline Phosphatase 325 H D Ammonia 33 Total Protein 5.6 L Albumin 3.1 L 04/21/22 04/21/22 04/21/22 11:56 13:59 15:19 WBC RBC Hgb Hct MCV MCH MCHC RDW Plt Count MPV Absolute Nucleated RBC Nucleated RBC % (auto) VBG pH 7.45 H VBG pCO2 31 VBG pO2 80 VBG HCO3 22 VBG O2 Saturation 97.0 VBG Base Excess -1.0 Sodium Potassium Chloride Carbon Dioxide Anion Gap BUN Creatinine Estim Creat Clear Calc Estimated GFR POC Glucose 89 Random Glucose Fasting Glucose Lactic Acid 2.1 H* Lactic Acid F/U @ 2Hr Lactic Acid F/U @ 4Hr Calcium Total Bilirubin Direct Bilirubin AST ALT Alkaline Phosphatase Ammonia Total Protein Albumin 04/21/22 04/21/22 04/21/22 16:24 19:24 19:24 WBC RBC Hgb Hct MCV MCH MCHC RDW Plt Count MPV Absolute Nucleated RBC Nucleated RBC % (auto) VBG pH VBG pCO2 VBG pO2 VBG HCO3 VBG O2 Saturation VBG Base Excess Sodium Potassium Chloride Carbon Dioxide Anion Gap BUN Creatinine Estim Creat Clear Calc Estimated GFR POC Glucose 91 Random Glucose Fasting Glucose Lactic Acid Lactic Acid F/U @ 2Hr 2.2 H* Lactic Acid F/U @ 4Hr 1.4 Calcium Total Bilirubin Direct Bilirubin AST ALT Alkaline Phosphatase Ammonia Total Protein Albumin 04/22/22 04/22/22 04/22/22 06:18 06:18 07:28 WBC 11.8 H RBC 2.50 L Hgb 7.2 L Hct 22.3 L MCV 89.2 MCH 28.8 MCHC 32.3 RDW 17.0 H Plt Count 94 L MPV 10.5 Absolute Nucleated RBC 0.000 Nucleated RBC % (auto) 0.0 VBG pH VBG pCO2 VBG pO2 VBG HCO3 VBG O2 Saturation VBG Base Excess Sodium 147 H Potassium 5.1 Chloride 117 H Carbon Dioxide 21 L Anion Gap 14 BUN 35 H Creatinine 2.35 H Estim Creat Clear Calc 26.6 Estimated GFR 27 POC Glucose 122 H Random Glucose Fasting Glucose 118 H Lactic Acid Lactic Acid F/U @ 2Hr Lactic Acid F/U @ 4Hr Calcium 8.2 L Total Bilirubin Direct Bilirubin AST ALT Alkaline Phosphatase Ammonia Total Protein Albumin Microbiology Microbiology Results: Microbiology 04/14/22 11:15 Blood - Venous Blood Culture - Final No growth after 5 days. 04/14/22 11:15 Blood - Venous Blood Culture - Final No growth after 5 days. 04/14/22 00:00 Urine clean catch - Urine villavicencio top Urine Culture - Final No growth. 03/31/22 15:07 Blood - Venous Blood Culture - Final No growth after 5 days. 03/31/22 15:07 Blood - Venous Blood Culture - Final No growth after 5 days. 03/31/22 00:00 Urine Other - Nephrostomy Urine Culture - Final Staphylococcus cohnii ssp urea 03/31/22 15:02 Blood - Venous Blood Culture - Final 03/31/22 15:02 Blood - Venous Blood Culture - Final Procedures Date of Service Date of Service: 04/22/22 Assessment & Plan Assessment and plan (1) ANDREEA (acute kidney injury): Status: Acute (2) Gross hematuria: Status: Acute (3) Diabetes type 2, controlled: Status: Acute (4) Sepsis: Status: Acute (5) Obstructive nephropathy: Status: Acute (6) Bladder cancer: Status: Acute (7) Acute respiratory failure with hypoxia: Status: Acute Plan 1. ANDREEA: peak SCr 5.2 noew back to BSL 1.9;slt bump inSCr past 48 hrs---multifact including Obs and dehydration 2. Obs uropathy: L PCN tue; and R hydro--per chart PT/family donot want R PCN tube 3. 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 Progress Note: Quality Stroke Does the patient have a stroke diagnosis?: No
[2022-04-22 12:52] LABS: Glucose, Whole Blood 255 mg/dL (60-115)
[2022-04-22] MEDS: cefTRIAXone sodium 1 GM in 0.9 % Sodium Chloride 50 ML IV (13:04)
[2022-04-22] MEDS: Insulin Lispro 100 UNIT/ML 3 ML VIAL SUBCUT ×3 (13:04→20:44)
[2022-04-22 13:29] LABS: Appearance Urine Cloudy; Color Urine Orange; Glucose Urine UA 100 mg/dL (Negative); Leukocyte Esterase Urine Moderate (2+) (Negative); Nitrite Urine Negative (Negative); UMIC TRIGGER UA YES; Urine Blood Large (3+) (Negative); Urine Ketones Negative (Negative); Urine Protein 300 (3+) mg/dL (Neg-Trace)
[2022-04-22 13:47] LABS: Bacteria Urine None Seen (None Seen); RBC Urine >20 /HPF (0-2); Squamous Epithelial Cell Urine 0-2 /HPF (0-2); WBC Urine >50 /HPF (0-5)
--- NOTE | 2022-04-22 14:48 | P.PNIM_ITS ---
Subjective Subjective Date of Service: 04/22/22 Interval History: seen and examined this morning follow up for respiratory failure, encephalopathy etc observed sitting up in bed, eating breakfast, doesn't want to answer my questions, states leave me alone repeating my questions back to me unable to obtain full ROS as pt is not cooperating Physical Exam Vital Signs: Vital Signs: Last Vital Signs Temp 97.5 F 04/22/22 11:46 Pulse 77 04/22/22 11:46 Resp 18 04/22/22 12:55 BP 117/60 04/22/22 11:46 Pulse Ox 100 04/22/22 11:46 O2 Del Method 04/22/22 11:46 O2 Flow Rate 50 04/22/22 11:46 FiO2 50 04/22/22 11:46 Oxygen Flow Rate 4 03/31/22 10:53 BMI result Body Mass Index 29.5 Const: General: alert and awake Nutritional Appearance: overweight Resp: Other: diminished breath sounds left basilar crackles Effort & Inspection: normal respiratory effort and able to speak in complete sentences Cardio: Rate: regular rate Heart sounds: S1 normal heart sound present and S2 normal heart sound present GI: Inspection: No distended Palpation (GI): Soft to palpation : Other: villareal in place, pink output Neuro: Other: limited assessment due to pt cooperation, patient talking in full sentences, overheard telling nurse his name although he won't answer that question for me moving all extremities, no focal deficits appreciated Extrem: General: Yes no pedal edema Objective Data Active Medications Acetaminophen (Acetaminophen 325 Mg Tablet) 650 mg PO Q6H PRN PRN Reason: Pain, Mild (Pain Scale 1-3) Last Admin: 04/09/22 21:49 Dose: 650 mg Documented By: JOVANNI Amlodipine Besylate (Amlodipine Besylate 10 Mg Tablet) 10 mg PO DAILY [facility]; Protocol Last Admin: 04/22/22 08:41 Dose: 10 mg Documented By: BIANCA Aspirin (Aspirin 81 Mg Tab.Chew) 81 mg PO DAILY [facility] Last Admin: 04/06/22 09:04 Dose: Not Given Documented By: BIANCA Non-Admin Reason: See Note Atorvastatin Calcium (Atorvastatin Calcium 40 Mg Tablet) 40 mg PO DAILY [facility] Last Admin: 04/06/22 09:04 Dose: Not Given Documented By: HO.N-SOFFA Non-Admin Reason: See Note Dextrose (Dextrose 50 % 25 Gm/50 Ml Syringe) 25 gm IVPUSH Q15M PRN; Protocol PRN Reason: per Hypoglycemia Standing Ord. Ferrous Sulfate (Ferrous Sulfate 324 Mg Tablet.Dr) 324 mg PO DAILY [facility] Last Admin: 04/10/22 09:41 Dose: 324 mg Documented By: HAM Glucose (Glucose Gel 15 Gm Gel..Gram.) 15 gm PO Q15M PRN; Protocol PRN Reason: per Hypoglycemia Standing Ord. Fat Emulsion Intravenous (Intralipid) 144 mls @ 12 mls/hr IVCONT BID@0600,1800 [facility] Last Infusion: 04/16/22 11:56 Dose: 0 mls/hr Documented By: NATALIYA Ceftriaxone Sodium 1 gm/ (Sodium Chloride) 50 mls @ 100 mls/hr IV Q24H [facility] Last Infusion: 04/22/22 14:00 Dose: 0 mls/hr Documented By: DANGELO Vancomycin HCl 750 mg/ Sodium (Chloride) 265 mls @ 265 mls/hr IV Q24H [facility] Insulin Human Lispro (Insulin Lispro 100 Unit/Ml 3 Ml Vial) 0 unit SUBCUT QIDACHS [facility]; Protocol Last Admin: 04/22/22 13:04 Dose: 6 unit Documented By: DANGELO Magnesium Oxide (Magnesium Oxide 400 Mg Tablet) 400 mg PO BID [facility] Last Admin: 04/11/22 09:00 Dose: Not Given Documented By: BECKY Non-Admin Reason: Hold per Melatonin (Melatonin 3 Mg Tablet) 6 mg PO BEDTIME PRN PRN Reason: insomnia Nadolol (Nadolol 20 Mg Tablet) 20 mg PO DAILY [facility]; Protocol Last Admin: 04/22/22 08:41 Dose: 20 mg Documented By: BIANCA Olanzapine (Olanzapine 5 Mg Tablet) 5 mg PO BEDTIME [facility] Last Admin: 04/21/22 21:28 Dose: Not Given Documented By: DIMA Non-Admin Reason: too drowsy Ondansetron HCl (Ondansetron Hcl 4 Mg/2 Ml Vial) 4 mg IVPUSH Q6H PRN PRN Reason: Nausea Last Admin: 04/12/22 15:07 Dose: 4 mg Documented By: MOHAN Pharmacy Consult (Consult Rx Vancomycin Dosing) 1 each MISCELLANE DAILY PRN PRN Reason: Consult order Rifaximin (Rifaximin 550 Mg Tablet) 550 mg PO BID [facility] Last Admin: 04/22/22 08:41 Dose: 550 mg Documented By: BIANCA Sodium Bicarbonate (Sodium Bicarbonate 650 Mg Tablet) 650 mg PO BID [facility] Last Admin: 04/22/22 08:41 Dose: 650 mg Documented By: BIANCA Sodium Chloride (0.9 % Sodium Chloride Flush 3 Ml Syringe) 3 ml IVFLUSH QSHIFT [facility] Last Admin: 04/22/22 07:52 Dose: Not Given Documented By: BIANCA Non-Admin Reason: See Note Thiamine HCl (Thiamine Hcl 100 Mg Tablet) 100 mg PO DAILY [facility] Last Admin: 04/22/22 08:41 Dose: 100 mg Documented By: BIANCA Triamcinolone Acetonide (Triamcinolone Acet 0.1 % Cream 15 Gm Tube) 1 appl TOPICAL BID PRN; Protocol PRN Reason: Rash Labs CBC & Chem 7: 04/22/22 06:18 04/22/22 06:18 Labs: Laboratory Results - last 24 hr 04/21/22 04/21/22 04/21/22 13:59 15:19 16:24 MCV MCH MCHC RDW Plt Count MPV Absolute Nucleated RBC Nucleated RBC % (auto) Anion Gap Estim Creat Clear Calc Estimated GFR POC Glucose 89 Fasting Glucose Lactic Acid 2.1 H* Lactic Acid F/U @ 2Hr 2.2 H* Lactic Acid F/U @ 4Hr Calcium Urine Color Urine Appearance Urine pH Ur Specific [place] Urine Protein Urine Glucose (UA) Urine Ketones Urine Blood Urine Nitrite Ur Leukocyte Esterase Urine RBC Urine WBC Ur Squamous Epith Cells Urine Bacteria Hyaline Casts 04/21/22 04/21/22 04/22/22 19:24 19:24 06:18 MCV 89.2 MCH 28.8 MCHC 32.3 RDW 17.0 H Plt Count 94 L MPV 10.5 Absolute Nucleated RBC 0.000 Nucleated RBC % (auto) 0.0 Anion Gap Estim Creat Clear Calc Estimated GFR POC Glucose 91 Fasting Glucose Lactic Acid Lactic Acid F/U @ 2Hr Lactic Acid F/U @ 4Hr 1.4 Calcium Urine Color Urine Appearance Urine pH Ur Specific [place] Urine Protein Urine Glucose (UA) Urine Ketones Urine Blood Urine Nitrite Ur Leukocyte Esterase Urine RBC Urine WBC Ur Squamous Epith Cells Urine Bacteria Hyaline Casts 04/22/22 04/22/22 04/22/22 06:18 07:28 11:48 MCV MCH MCHC RDW Plt Count MPV Absolute Nucleated RBC Nucleated RBC % (auto) Anion Gap 14 Estim Creat Clear Calc 26.6 Estimated GFR 27 POC Glucose 122 H 255 H Fasting Glucose 118 H Lactic Acid Lactic Acid F/U @ 2Hr Lactic Acid F/U @ 4Hr Calcium 8.2 L Urine Color Urine Appearance Urine pH Ur Specific [place] Urine Protein Urine Glucose (UA) Urine Ketones Urine Blood Urine Nitrite Ur Leukocyte Esterase Urine RBC Urine WBC Ur Squamous Epith Cells Urine Bacteria Hyaline Casts 04/22/22 13:16 MCV MCH MCHC RDW Plt Count MPV Absolute Nucleated RBC Nucleated RBC % (auto) Anion Gap Estim Creat Clear Calc Estimated GFR POC Glucose Fasting Glucose Lactic Acid Lactic Acid F/U @ 2Hr Lactic Acid F/U @ 4Hr Calcium Urine Color Stella A Urine Appearance Cloudy Urine pH 6.0 Ur Specific [place] 1.020 Urine Protein 300 (3+) H Urine Glucose (UA) 100 H Urine Ketones Negative Urine Blood Large (3+) H Urine Nitrite Negative Ur Leukocyte Esterase Moderate (2+) H Urine RBC >20 H Urine WBC >50 H Ur Squamous Epith Cells 0-2 Urine Bacteria None Seen Hyaline Casts 3-5 Assessment and Plan (1) Encephalopathy acute: Status: Acute (2) Acute respiratory failure with hypoxia: Status: Acute Plan 76-year-old male presents unresponsive, hypotensive, hypothermic in the backdrop of active urinary sediment.? acute hypoxemic respiratory failure - mutlifactorial possible secondary hypoalbuminemia, possible liver disease/cirrhosis, less likely CHF, pneumonia echo : ef 55-60% Received Lasix for 1 day but seems like less likely CHF but more likely due to atelectasis/hypoalbuminemia/treated for pneumonia 04/11 CXR patchy opacities s/p 5 days of zosyn and doxycycline 04/21 repeat cxr - unremarkable currently on high flow oxygen, wean as tolerated Continue suctioning prn,? chest physiotherapy toxic metabolic encephalopathy:? Multifactorial (electrolytic abnormalities/poor oral intake/ dementia/zyprexa,stan on ckd) CT head negative, mri reviewed by neuro, EEG due to fairly severe diffuse background slowing consistent with a diffuse encephalopathic process. neuro saw the patient-encephalopathy Possibly?related to multifactorial basis with hypoxia, metabolic abnormalities and baseline dementia Resumed scheduled zyprexa Acute pneumonia-resolved Completed 5 days zosyn and doxyclycine hx of HCC s/p ablation, as well as hx of bladder cancer Did not tolerate palliative immunotherapy. Follows with outpt urology [facility] who may be recommending palliative radiation therapy to stop bleeding/clots. Not a surgical candidate. Continue CBI for hematuria. Required 3 units PRBC total during admission. Clots recurred overnight 04/15- requiring irrigation by nursing and urology. Continue CBI , now with light pink output, no clots -Family declines right sided nephrostomy tube -Follow CBC- H/H stable -Will continue villareal on discharge given admission for obstructive nephropathy with left nephrostomy tube in place and persistent moderate/marked right ureter ectasis diffusely, family refusing right nephrostomy tube, with background obstructive bladder cancer with recurrent hematuria. UTI -resolved Intermittent hypothermia likely central, doubt infection Patient with subclinical hypothyroidism, not likely contributory Olanzepine held for 4 days with recurrence of hypothermia. Not likely related to antipsychotis use Not meeting other SIRS criteria, less likely related to infection -Maru oshea prn Chronic normocytic anemia/thrombocytopenia Multifactorial -H/H and PLT stable -Transfuse if hgb <7 -follow daily CBCs -epo as ordered by nephrology Insulin dependent type 2 diabetes- glucose levels reasonably controlled -Continue PPN/diabetic diet -POC glucose -humalog SS Dementia unspecified with agitated features evaluated by psychiatry- olanzepine, continue 5mg nightly when taking po stan on ckd(stage unclear ,per family cr is between 2-3): multifactorial - ftt/bladder cancer ,hematuria- resolved cr trending down -Resume NaHCO3, CO2<24 -Follow BMP Hepatic cirrhosis Rifaximin/nadolol has been on hold 2/2 mental status - both have been resumed DNR/DNI DVT ppx - mechanical devices-due to? Anemia/thrombocytopenia reason for continued hospitalization:hypoxia, requiring high flow oxygen attending - dr. chung Time Spent With Patient Time: Total time managing care of this patient today ____ minutes. Quality Stroke Does the patient have a stroke diagnosis?: No VTE Prior VTE?: No VTE Risk Level:: Medical - moderate - high VTE Device Contraindication: N/A - Device Ordered VTE Drug Contraindication: Treatment Not Indicated
[2022-04-22 14:50] LABS: Vancomycin Random 14.5 mcg/mL (15-20)
--- NOTE | 2022-04-22 14:57 | HE.PHANOTE ---
Vancomycin Dosing Addendum Patients renal function is up today to a scr of 2.35 from 1.94. Patients level came back at 14.5 mg/L. Continue current regimen, predicted AUC 498 mg/L/hr
[2022-04-22 15:31] LABS: Glucose, Whole Blood 217 mg/dL (60-115)
--- NOTE | 2022-04-22 15:58 | MHC.SL.SWA ---
Speech Pathologist Impression: Risk of Aspiration Due to: Medically Fragile Poor PO Intake Reduced Cognition Weak Cough Dysphasia Diet Status: Recommend continue Ground/Mechanical Altered (NDD2), with THIN liquids by controlled cup sip only, continue with pills crushed in puree. Liquid Consistency and Strategies for Safe Swallow: Liquid Intake Recommendation: Thin Liquid Intake Strategies: Small Sips No Straws Solid Food Consistency: Dietary Recommendations: Grnd/Mech Altered (NDD2) Additional Modifications to Solid Foods: Patient will need 1-1 feeding with close monitor for swallow before presenting any additional food/liquid, strict monitor for aspiration signs. Oral Medication Intake: Crushed with Puree Please contact the pharmacy regarding appropriate crushable or liquid drug formulations that are available whenever modified delivery is recommended. Compensatory Strategies and Precautions to be Taken for Safe Swallow: Sitting Upright (90 deg) No Straw Small Bites and Sips Alternate Liquids/Solids Rate of Ingestion Change Oral Check Supervision While Eating and Drinking for Safe Swallow: Total Assistance (1:1) Foods to Avoid: Mixed consistencies (e.g. cereal with milk, thin broth soups with vegetable and meat pieces). Swallowing Recommended Treatments: Compens. Strategy Educat. Recommendation for Speech: Further Testing Needed Outpatient Speech Therapy Inpatient Speech Therapy Comment: Patient noted to have had recurrence of Hematura, Hypothermia, hypoxia, seen for re-assessment of swallow this a.m. Patient had CXR that was unremarkable earlier today. When communicated with today, verbalizations were minimal, evidenced more confusion when compared to last visit. Patient was observed taking sips of water from cup, produced timely oral phase, mild delay initiating swallow, evidenced no clinical signs of aspiration. Patient was observed taking a softened cracker in puree, produced a mildly prolonged period of mastication, mild delay of swallow, mild oral residual after swallow, with residual cleared with additional sip of liquid. No clinical signs of aspiration. Patient presenting as appropriate for current recommended diet of Ground Mechanical Altered (NDD2) with Thin liquids, pills crushed in puree. Recommend patient continue on these consistencies. Frequency/Duration: Date Range for Service Req: Timeline to reassess: Panelboard Assembler Clinican/Clinical Fellow: No Supervisory Statement: I have reviewed and agree with the student/clinical fellow's documentation: N/A Speech Language Pathologist: Samantha Shirley M.A., CCC-FREELANCE COPYWRITER
[2022-04-22] MEDS: vancomycin HCL 750 MG in 0.9 % Sodium Chloride 250 ML 265 MG IV (17:05)
[2022-04-22] MEDS: 0.9 % Sodium Chloride Flush 3 ML SYRINGE IVFLUSH (17:06)
[2022-04-22] MEDS: OLANZapine 5 MG TABLET PO (18:33)
[2022-04-22 20:17] LABS: Glucose, Whole Blood 273 mg/dL (60-115)
[2022-04-23] VITALS (11 sets, daily range): BP systolic 105–143; BP diastolic 61–99; PULSE 59–76; RESP 17–18; TEMP 35.7–36.4; O2SAT 97–100
[2022-04-23] MEDS: 0.9 % Sodium Chloride Flush 3 ML SYRINGE IVFLUSH (05:52)
[2022-04-23 07:04] LABS: Mean Corpuscular Hemoglobin 28.6 pg (27.0-33.0); Mean Corpuscular Volume 89.3 fL (80.0-98.0); Mean Platelet Volume 10.1 fL (9.4-12.4); Red Blood Count 2.24 X10*6/uL (4.60-5.80); White Blood Count 4.5 X10*3/uL (4.8-10.8)
[2022-04-23 07:10] LABS: Platelet Count 81 X10*3/uL (160-400)
[2022-04-23 07:14] LABS: Hemoglobin 6.4 g/dl (14.0-18.0)
[2022-04-23 07:17] LABS: Anion Gap 10 (12-20); Blood Urea Nitrogen 32 mg/dL (9-16); Calcium 8.2 mg/dL (8.4-10.2); Carbon Dioxide 22 mmol/L (22-29); Chloride 117 mmol/L (96-108); Creatinine Clr Calc Pharmacy 31.6; Estimated Glomerular Filt Rate 33; Glucose Random 149 mg/dL (60-115); Potassium 4.3 mmol/L (3.3-5.1); Sodium 145 mmol/L (135-145)
[2022-04-23 07:38] LABS: Glucose, Whole Blood 134 mg/dL (60-115)
--- NOTE | 2022-04-23 08:57 | P.CDIC_ITS ---
CDI Concurrent Query Documentation Clarification: PHYSICIAN'S DOCUMENTATION REQUEST Date of Query: 04/23/22 0858 Patient Name: Claudio Garcia Admit Date: 03/31/22 Dear Doctor, A review of the medical record indicates additional documentation may be needed. Please review below and update the documentation accordingly. Clinical Indicators: Documentation on nephrology progress note dated 04/17/22 through current date included the diagnosis of sepsis. Please clarify whether you confirm or rule out this diagnosis. Risk Factors/Clinical Indicators/Treatments POA/TREAT/RESOLVED/RULE OUT Per nephrology notes 04/17-04/22: Sepsis: ?Status:?Acute Per provider progress note on 04/21: patient with fever, tachycardia, will check bcx, lactic acid, ua, empiric vanc, rocephin Vitals & Labs: TEMP on 04/21: 95.7 TEMP on 04/22: 96.3 HR on 04/21: 114 RR on 04/21: 22 Lactic acid on 04/21: 2.1 Associated administered medications: Vancomycin Zosyn Underlying infections: UTI Pneumonia Recognized standard criteria for this condition and other infectious definitions includes: Sepsis Systemic manifestations of infection, with 2 or more SIRS criteria which include: * Fever > 100.4?F or hypothermia < 96.8?F * Leukocytosis ? WBC > 12,000 or leukopenia, WBC < 4,000, or > 10% bands * Tachycardia- > 90 beats/minute * Tachypnea- RR > 20 breaths/minute or PaCO2 < 32mmHg Source: Merck Manual 2013 Documentation should include the known or suspected organism, and the underlying infection, such as UTI or pneumonia Severe Sepsis Sepsis with associated acute organ dysfunction, such as renal or respiratory failure Documentation should indicate the association between the sepsis and the organ dysfunction Septic Shock Severe sepsis with associated with circulatory failure, evidenced by hypotension and hypoperfusion Based on the above information and the recognized standard for sepsis, could you please clarify in the Progress Notes if this diagnoses is still accurate and reflective of the patient's condition to ensure quality of the medical record. * Sepsis is/was present and is a clinical diagnosis based on (please include this additional support in the medical record) * After study (the condition) has been ruled out * Other (please specify) * Unable to determine Use of terms such as suspected, likely, concern for, or probable (associated with a specific diagnosis that is being evaluated, monitored, or treated as if it exists) are acceptable and can be coded in the inpatient setting, when documented at the time of discharge. Thank you, Jill Peñaloza MS, RN, CCRN Extension: [phone] Please use your independent medical judgment in providing your response. THIS QUERY IS PART OF THE PERMANENT MEDICAL RECORD Provider Response: Other Other Diagnosis: no sepsis
[2022-04-23] MEDS: rifAXIMin 550 MG TABLET PO ×2 (09:40→19:46)
[2022-04-23] MEDS: nadoloL 20 MG TABLET PO (09:40)
[2022-04-23] MEDS: Thiamine HCL 100 MG TABLET PO (09:40)
[2022-04-23] MEDS: amLODIPine Besylate 10 MG TABLET PO (09:40)
[2022-04-23] MEDS: Acetaminophen 325 MG TABLET 650 MG PO (09:40)
[2022-04-23] MEDS: Sodium Bicarbonate 650 MG TABLET PO ×2 (09:40→19:46)
--- NOTE | 2022-04-23 10:05 | MHC.SL.SWA ---
Speech Pathologist Impression: Oropharyngeal dysphagia Risk of Aspiration Due to: Medically Fragile Poor PO Intake Reduced Cognition Weak Cough Dysphasia Diet Status: No Change Liquid Consistency and Strategies for Safe Swallow: Liquid Intake Recommendation: Thin Liquid Intake Strategies: Small Sips No Straws Solid Food Consistency: Dietary Recommendations: Grnd/Mech Altered (NDD2) Additional Modifications to Solid Foods: Patient will need 1-1 feeding with close monitor for swallow before presenting any additional food/liquid, strict monitor for aspiration signs. Oral Medication Intake: Crushed with Puree Please contact the pharmacy regarding appropriate crushable or liquid drug formulations that are available whenever modified delivery is recommended. Compensatory Strategies and Precautions to be Taken for Safe Swallow: Sitting Upright (90 deg) No Straw Small Bites and Sips Alternate Liquids/Solids Rate of Ingestion Change Oral Check Avoid Specific Foods Supervision While Eating and Drinking for Safe Swallow: Total Assistance (1:1) Foods to Avoid: Mixed consistencies (e.g. cereal with milk, thin broth soups with vegetable and meat pieces). Swallowing Recommended Treatments: Compens. Strategy Educat. Recommendation for Speech: Further Testing Needed Outpatient Speech Therapy Inpatient Speech Therapy Radio Electronics Technician Clinican/Clinical Fellow: Yes: Siddhartha Minaya Supervisory Statement: I have reviewed and agree with the student/clinical fellow's documentation: Yes Speech Language Pathologist: Florecita Ba M.A., CCC-PRINTMAKER
--- NOTE | 2022-04-23 11:03 | MHC.CM.PN ---
Per ROUNDS discussion, Patient is down to 6L O2 and getting a Blood Transfusion today and not yet medically cleared for dc. DC to [facility] is the goal and CM will continue to follow.
[2022-04-23 11:27] LABS: Glucose, Whole Blood 209 mg/dL (60-115)
--- NOTE | 2022-04-23 11:55 | MHC.CLN ---
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
[2022-04-23] MEDS: Insulin Lispro 100 UNIT/ML 3 ML VIAL SUBCUT ×2 (12:13→20:43)
--- NOTE | 2022-04-23 13:15 | HO.PM.IMPN ---
Subjective Subjective Date of Service: 04/23/22 Interval History: seen and examined this morning follow up for respiratory failure, encephalopathy sleepy this morning, but arousable to verbal stimuli unable to obtain full ROS Physical Exam Vital Signs: Vital Signs: Last Vital Signs Temp 97.1 F 04/23/22 11:17 Pulse 59 04/23/22 11:17 Resp 17 04/23/22 11:17 BP 112/65 04/23/22 11:17 Pulse Ox 100 04/23/22 11:17 O2 Del Method 04/23/22 11:17 O2 Flow Rate 6 04/23/22 11:17 FiO2 50 04/22/22 11:46 Oxygen Flow Rate 4 03/31/22 10:53 BMI result Body Mass Index 29.5 Const: Other: sleepy but arousable to verbal stimuli General: comfortable and no acute distress Nutritional Appearance: overweight Resp: Other: diminished breath sounds left basilar crackles Effort & Inspection: normal respiratory effort and able to speak in complete sentences Cardio: Rate: regular rate Heart sounds: S1 normal heart sound present and S2 normal heart sound present GI: Inspection: No distended Palpation (GI): Soft to palpation : Other: villareal in place, pink output left nephrostomy tube in place Neuro: Other: limited assessment moving all extremities, no focal deficits appreciated Extrem: General: Yes no pedal edema Objective Data Active Medications Acetaminophen (Acetaminophen 325 Mg Tablet) 650 mg PO Q6H PRN PRN Reason: Pain, Mild (Pain Scale 1-3) Last Admin: 04/09/22 21:49 Dose: 650 mg Documented By: JOVANNI Amlodipine Besylate (Amlodipine Besylate 10 Mg Tablet) 10 mg PO DAILY [facility]; Protocol Last Admin: 04/23/22 09:40 Dose: 10 mg Documented By: BIANCA Aspirin (Aspirin 81 Mg Tab.Chew) 81 mg PO DAILY [facility] Last Admin: 04/06/22 09:04 Dose: Not Given Documented By: BIANCA Non-Admin Reason: See Note Atorvastatin Calcium (Atorvastatin Calcium 40 Mg Tablet) 40 mg PO DAILY [facility] Last Admin: 04/06/22 09:04 Dose: Not Given Documented By: BIANCA Non-Admin Reason: See Note Dextrose (Dextrose 50 % 25 Gm/50 Ml Syringe) 25 gm IVPUSH Q15M PRN; Protocol PRN Reason: per Hypoglycemia Standing Ord. Ferrous Sulfate (Ferrous Sulfate 324 Mg Tablet.Dr) 324 mg PO DAILY [facility] Last Admin: 04/10/22 09:41 Dose: 324 mg Documented By: HAM Glucose (Glucose Gel 15 Gm Gel..Gram.) 15 gm PO Q15M PRN; Protocol PRN Reason: per Hypoglycemia Standing Ord. Fat Emulsion Intravenous (Intralipid) 144 mls @ 12 mls/hr IVCONT BID@0600,1800 [facility] Last Infusion: 04/16/22 11:56 Dose: 0 mls/hr Documented By: NATALIYA Ceftriaxone Sodium 1 gm/ (Sodium Chloride) 50 mls @ 100 mls/hr IV Q24H [facility] Last Infusion: 04/22/22 14:00 Dose: 0 mls/hr Documented By: DANGELO Vancomycin HCl 750 mg/ Sodium (Chloride) 265 mls @ 265 mls/hr IV Q24H [facility] Last Infusion: 04/22/22 20:19 Dose: 0 mls/hr Documented By: MIMI Insulin Human Lispro (Insulin Lispro 100 Unit/Ml 3 Ml Vial) 0 unit SUBCUT QIDACHS [facility]; Protocol Last Admin: 04/23/22 12:13 Dose: 2 unit Documented By: BIANCA Magnesium Oxide (Magnesium Oxide 400 Mg Tablet) 400 mg PO BID [facility] Last Admin: 04/11/22 09:00 Dose: Not Given Documented By: BECKY Non-Admin Reason: Hold per Melatonin (Melatonin 3 Mg Tablet) 6 mg PO BEDTIME PRN PRN Reason: insomnia Nadolol (Nadolol 20 Mg Tablet) 20 mg PO DAILY [facility]; Protocol Last Admin: 04/23/22 09:40 Dose: 20 mg Documented By: BIANCA Olanzapine (Olanzapine 5 Mg Tablet) 5 mg PO DAILY@1900 [facility] Last Admin: 04/22/22 18:33 Dose: 5 mg Documented By: DANGELO Ondansetron HCl (Ondansetron Hcl 4 Mg/2 Ml Vial) 4 mg IVPUSH Q6H PRN PRN Reason: Nausea Last Admin: 04/12/22 15:07 Dose: 4 mg Documented By: MOHAN Pharmacy Consult (Consult Rx Vancomycin Dosing) 1 each MISCELLANE DAILY PRN PRN Reason: Consult order Rifaximin (Rifaximin 550 Mg Tablet) 550 mg PO BID [facility] Last Admin: 04/23/22 09:40 Dose: 550 mg Documented By: JOLIE-ANDRESSA Sodium Bicarbonate (Sodium Bicarbonate 650 Mg Tablet) 650 mg PO BID [facility] Last Admin: 04/23/22 09:40 Dose: 650 mg Documented By: BIANCA Sodium Chloride (0.9 % Sodium Chloride Flush 3 Ml Syringe) 3 ml IVFLUSH QSHIFT [facility] Last Admin: 04/23/22 07:51 Dose: Not Given Documented By: BIANCA Non-Admin Reason: See Note Thiamine HCl (Thiamine Hcl 100 Mg Tablet) 100 mg PO DAILY [facility] Last Admin: 04/23/22 09:40 Dose: 100 mg Documented By: BIANCA Triamcinolone Acetonide (Triamcinolone Acet 0.1 % Cream 15 Gm Tube) 1 appl TOPICAL BID PRN; Protocol PRN Reason: Rash Labs CBC & Chem 7: 04/23/22 06:37 04/23/22 06:37 Labs: Laboratory Results - last 24 hr 04/10/22 04/16/22 04/22/22 18:32 12:56 13:16 MCV MCH MCHC RDW Plt Count MPV Absolute Nucleated RBC Nucleated RBC % (auto) Anion Gap Estim Creat Clear Calc Estimated GFR POC Glucose Random Glucose Calcium Urine Color Stokes A Urine Appearance Cloudy Urine pH 6.0 Ur Specific Gage 1.020 Urine Protein 300 (3+) H Urine Glucose (UA) 100 H Urine Ketones Negative Urine Blood Large (3+) H Urine Nitrite Negative Ur Leukocyte Esterase Moderate (2+) H Urine RBC >20 H Urine WBC >50 H Ur Squamous Epith Cells 0-2 Urine Bacteria None Seen Hyaline Casts 3-5 Random Vancomycin Blood Type Antibody Screen Crossmatch See Detail See Detail 04/22/22 04/22/22 04/22/22 14:07 15:27 20:13 MCV MCH MCHC RDW Plt Count MPV Absolute Nucleated RBC Nucleated RBC % (auto) Anion Gap Estim Creat Clear Calc Estimated GFR POC Glucose 217 H 273 H Random Glucose Calcium Urine Color Urine Appearance Urine pH Ur Specific Gage Urine Protein Urine Glucose (UA) Urine Ketones Urine Blood Urine Nitrite Ur Leukocyte Esterase Urine RBC Urine WBC Ur Squamous Epith Cells Urine Bacteria Hyaline Casts Random Vancomycin 14.5 L Blood Type Antibody Screen Crossmatch 04/23/22 04/23/22 04/23/22 06:37 06:37 07:23 MCV 89.3 MCH 28.6 MCHC 32.0 RDW 17.0 H Plt Count 81 L MPV 10.1 Absolute Nucleated RBC 0.000 Nucleated RBC % (auto) 0.0 Anion Gap 10 L Estim Creat Clear Calc 31.6 Estimated GFR 33 POC Glucose 134 H Random Glucose 149 H Calcium 8.2 L Urine Color Urine Appearance Urine pH Ur Specific Gage Urine Protein Urine Glucose (UA) Urine Ketones Urine Blood Urine Nitrite Ur Leukocyte Esterase Urine RBC Urine WBC Ur Squamous Epith Cells Urine Bacteria Hyaline Casts Random Vancomycin Blood Type Antibody Screen Crossmatch 04/23/22 04/23/22 07:46 11:21 MCV MCH MCHC RDW Plt Count MPV Absolute Nucleated RBC Nucleated RBC % (auto) Anion Gap Estim Creat Clear Calc Estimated GFR POC Glucose 209 H Random Glucose Calcium Urine Color Urine Appearance Urine pH Ur Specific Gage Urine Protein Urine Glucose (UA) Urine Ketones Urine Blood Urine Nitrite Ur Leukocyte Esterase Urine RBC Urine WBC Ur Squamous Epith Cells Urine Bacteria Hyaline Casts Random Vancomycin Blood Type A Positive Antibody Screen NEGATIVE Crossmatch See Detail Microbiology Microbiology Results: Microbiology 04/21/22 13:59 Blood Culture - Preliminary Blood - Venous No growth after 24 hours. 04/21/22 13:59 Blood Culture - Preliminary Blood - Venous No growth after 24 hours. Assessment and Plan (1) Bladder cancer: Status: Acute (2) ANDREEA (acute kidney injury): Status: Acute (3) Acute respiratory failure with hypoxia: Status: Acute Plan 76-year-old male presents unresponsive, hypotensive, hypothermic in the backdrop of active urinary sediment.? SIRS 04/21 patient noted to have low grade fever (100.2), RR 22, HR 114 - was started on empiric antibiotics no source of infection was identified. cxr negative, UA without bacteria blood cultures negative no sepsis acute hypoxemic respiratory failure - mutlifactorial possible secondary hypoalbuminemia, liver disease/cirrhosis, less likely CHF, pneumonia echo : ef 55-60% Received Lasix for 1 day but seems like less likely CHF 04/11 CXR patchy opacities s/p 5 days of zosyn and doxycycline 04/21 repeat cxr - unremarkable previously on high flow, weaned down to 6L Continue suctioning prn,? chest physiotherapy as needed toxic metabolic encephalopathy:? Multifactorial (electrolytic abnormalities/poor oral intake/ dementia,andreea on ckd) - improving CT head negative, mri reviewed by neuro, EEG due to fairly severe diffuse background slowing consistent with a diffuse encephalopathic process. seen by neuro-encephalopathy Possibly?related to multifactorial basis with hypoxia, metabolic abnormalities and baseline dementia Resumed scheduled zyprexa pneumonia Completed 5 days zosyn and doxyclycine hx of HCC s/p ablation, as well as hx of bladder cancer Did not tolerate palliative immunotherapy. Follows with outpt urology at [facility] who may be recommending palliative radiation therapy to stop bleeding/clots. Not a surgical candidate. s/p CBI HCP declines right sided nephrostomy tube Will continue villareal on discharge given admission for obstructive nephropathy with left nephrostomy tube in place and persistent moderate/marked right ureterectasis diffusely, family refusing right nephrostomy tube, with background obstructive bladder cancer with recurrent hematuria. Intermittent hypothermia likely central, doubt infection Patient with subclinical hypothyroidism, not likely contributory Olanzepine held for 4 days with recurrence of hypothermia. Not likely related to antipsychotic use Not meeting other SIRS criteria, less likely related to infection -Maru oshea prn Chronic normocytic anemia/thrombocytopenia Multifactorial r/t liver dz, hematuria H/H down 04/23, will transfuse one unit RBC follow cbc, Transfuse if hgb <7 follow daily CBCs epo as ordered by nephrology Insulin dependent type 2 diabetes- glucose levels reasonably controlled Continue diabetic diet POC glucose, SSI Dementia unspecified with agitated features/schizophrenia evaluated by psychiatry- olanzepine, continue 5mg nightly - HCP Clif requested dosing be scheduled earlier, changed to 7pm UTI urine culture from 04/14 - no growth completed course of antibiotics andreea on ckd (stage unclear ,per family cr is between 2-3): multifactorial -ftt/bladder cancer ,hematuria cr trending down cotiue NaHCO3, CO2<24 Follow BMP Hepatic cirrhosis continue Rifaximin/nadolol DNR/DNI DVT ppx - mechanical devices-due to Anemia/hematuria/thrombocytopenia reason for continued hospitalization: hypoxia, anemia requiring blood transfusion attending - dr. chung Time Spent With Patient Time: Total time managing care of this patient today ____ minutes. Quality Stroke Does the patient have a stroke diagnosis?: No VTE Prior VTE?: No VTE Risk Level:: Medical - moderate - high VTE Device Contraindication: N/A - Device Ordered VTE Drug Contraindication: Treatment Not Indicated
[2022-04-23] MEDS: cefTRIAXone sodium 1 GM in 0.9 % Sodium Chloride 50 ML IV (13:35)
--- NOTE | 2022-04-23 13:58 | PC.NURSE ---
PA informed of pt's hematuria and clot that was in villareal tubing. CBI continues to be clamped. pt drowsy throughout the day, is able to awaken and follow commands, responds to voice.
[2022-04-23 14:50] LABS: Vancomycin Random 15.2 mcg/mL (15-20)
[2022-04-23 16:12] LABS: Glucose, Whole Blood 119 mg/dL (60-115)
[2022-04-23] MEDS: vancomycin HCL 750 MG in 0.9 % Sodium Chloride 250 ML 265 MG IV (16:29)
--- NOTE | 2022-04-23 16:40 | PM.PNNEP ---
Subjective Subjective Date of Service: 04/23/22 Interval history: seen and examined this morning Physical Exam Vital Signs: Vital Signs: Last Vital Signs Temp 96.2 F L 04/23/22 15:42 Pulse 61 04/23/22 15:42 Resp 17 04/23/22 15:42 BP 118/63 04/23/22 15:42 Pulse Ox 98 04/23/22 15:42 O2 Del Method 04/23/22 15:42 O2 Flow Rate 6 04/23/22 11:17 FiO2 50 04/22/22 11:46 Oxygen Flow Rate 4 03/31/22 10:53 BMI result Body Mass Index 29.5 Const: Other: sleepy but arousable to verbal stimuli General: no acute distress, ill appearing and lethargic Nutritional Appearance: overweight and Edematous Orientation/consciousness: oriented to person, oriented to place and lethargic HEENT: Head: Yes normocephalic and Yes atraumatic Face and sinus: Yes normal facial exam Mouth: moist mucous membranes Eyes: Sclerae: sclerae normal EOM: EOMs intact bilaterally Neck: Other: supple Neck: Yes supple Chest: Other: clear Chest palpation & inspection: normal inspection of the chest Resp: Other: diminished breath sounds left basilar crackles Effort & Inspection: no respiratory distress Auscultation: crackles (Diffuse bilateral) Cardio: Other: RRR Rate: regular rate Rhythm: regular rhythm Heart sounds: no murmurs and no rubs GI: Other: slt distended,decreased bowel sounds Inspection: Yes normal to inspection and No distended Palpation (GI): Soft to palpation Auscultation: normal bowel sounds : Other: villareal in place, pink output left nephrostomy tube in place Penis: normal penis Scrotum: scrotum normal Back/Spine/Pelvis: Other: Percutaneous nephrostomy tube draining clear fluid; flushes well per nursing Cervical Spine: normal cervical lordosis Thoracic/Lumbar Spine: thoracic and lumbar spine normal to inspection Skin: General skin exam: no rashes or lesions noted Neuro: Other: limited assessment moving all extremities, no focal deficits appreciated General: oriented to person and oriented to place Extrem: Other: No edema bilaterally General: Yes normal to inspection, No clubbing and No cyanosis Psych: Other: somnolence Objective Data Labs CBC & Chem 7: 04/23/22 06:37 04/23/22 06:37 Labs: Laboratory Results - last 24 hr 04/10/22 04/16/22 04/22/22 18:32 12:56 20:13 WBC RBC Hgb Hct MCV MCH MCHC RDW Plt Count MPV Absolute Nucleated RBC Nucleated RBC % (auto) Sodium Potassium Chloride Carbon Dioxide Anion Gap BUN Creatinine Estim Creat Clear Calc Estimated GFR POC Glucose 273 H Random Glucose Calcium Random Vancomycin Blood Type Antibody Screen Crossmatch See Detail See Detail 04/23/22 04/23/22 04/23/22 06:37 06:37 07:23 WBC 4.5 L RBC 2.24 L Hgb 6.4 L* Hct 20.0 L* MCV 89.3 MCH 28.6 MCHC 32.0 RDW 17.0 H Plt Count 81 L MPV 10.1 Absolute Nucleated RBC 0.000 Nucleated RBC % (auto) 0.0 Sodium 145 Potassium 4.3 Chloride 117 H Carbon Dioxide 22 Anion Gap 10 L BUN 32 H Creatinine 1.98 H Estim Creat Clear Calc 31.6 Estimated GFR 33 POC Glucose 134 H Random Glucose 149 H Calcium 8.2 L Random Vancomycin Blood Type Antibody Screen Crossmatch 04/23/22 04/23/22 04/23/22 07:46 11:21 14:10 WBC RBC Hgb Hct MCV MCH MCHC RDW Plt Count MPV Absolute Nucleated RBC Nucleated RBC % (auto) Sodium Potassium Chloride Carbon Dioxide Anion Gap BUN Creatinine Estim Creat Clear Calc Estimated GFR POC Glucose 209 H Random Glucose Calcium Random Vancomycin 15.2 Blood Type A Positive Antibody Screen NEGATIVE Crossmatch See Detail 04/23/22 16:05 WBC RBC Hgb Hct MCV MCH MCHC RDW Plt Count MPV Absolute Nucleated RBC Nucleated RBC % (auto) Sodium Potassium Chloride Carbon Dioxide Anion Gap BUN Creatinine Estim Creat Clear Calc Estimated GFR POC Glucose 119 H Random Glucose Calcium Random Vancomycin Blood Type Antibody Screen Crossmatch Microbiology Microbiology Results: Microbiology 04/21/22 13:59 Blood - Venous Blood Culture - Preliminary No growth after 48 hours. 04/21/22 13:59 Blood - Venous Blood Culture - Preliminary No growth after 48 hours. 04/14/22 11:15 Blood - Venous Blood Culture - Final No growth after 5 days. 04/14/22 11:15 Blood - Venous Blood Culture - Final No growth after 5 days. 04/14/22 00:00 Urine clean catch - Urine villavicencio top Urine Culture - Final No growth. 03/31/22 15:07 Blood - Venous Blood Culture - Final No growth after 5 days. 03/31/22 15:07 Blood - Venous Blood Culture - Final No growth after 5 days. 03/31/22 00:00 Urine Other - Nephrostomy Urine Culture - Final Staphylococcus cohnii ssp urea 03/31/22 15:02 Blood - Venous Blood Culture - Final 03/31/22 15:02 Blood - Venous Blood Culture - Final Procedures Date of Service Date of Service: 04/23/22 Assessment & Plan Assessment and plan (1) ANDREEA (acute kidney injury): Status: Acute (2) Gross hematuria: Status: Acute (3) Diabetes type 2, controlled: Status: Acute (4) Sepsis: Status: Acute (5) Obstructive nephropathy: Status: Acute (6) Bladder cancer: Status: Acute (7) Acute respiratory failure with hypoxia: Status: Acute Plan 1. ANDREEA: peak SCr 5.2 noew back to BSL 1.9;slt bump inSCr past 48 hrs---multifact including Obs and dehydration 2. Obs uropathy: L PCN tue; and R hydro--per chart PT/family donot want R PCN tube 3. Anemia: will track as outpt--Fe stores ok; will start epo No [employer] per PT/family ( noted by Dr Woods d/w nephew) REC: xfuse as needed to keep > 7.0; track renal func; avoid NToxins; epo as ordered; cont d/w Hpxy GOC I will arrange f/u as outpt Time Spent With Patient Time: Total time managing care of this patient today ____ minutes. Progress Note: Quality Stroke Does the patient have a stroke diagnosis?: No
[2022-04-23 16:58] LABS: Hematocrit 23.4 % (42.0-52.0)
[2022-04-23 16:59] LABS: Hemoglobin 7.5 g/dl (14.0-18.0)
[2022-04-23] MEDS: OLANZapine 5 MG TABLET PO (19:46)
[2022-04-23 20:24] LABS: Glucose, Whole Blood 278 mg/dL (60-115)
[2022-04-23] MEDS: Haloperidol Lactate 5 MG/ML VIAL 2.5 MG IVPUSH (23:57)
[2022-04-24 06:44] LABS: Hematocrit 25.7 % (42.0-52.0); Hemoglobin 8.6 g/dl (14.0-18.0); Mean Corpuscular HGB Conc 33.5 g/dl (31.0-36.0); Mean Corpuscular Volume 89.5 fL (80.0-98.0); Mean Platelet Volume 10.7 fL (9.4-12.4); Platelet Count 116 X10*3/uL (160-400); Red Blood Count 2.87 X10*6/uL (4.60-5.80); Red Cell Distribution Width 16.8 % (11.0-16.0); White Blood Count 4.8 X10*3/uL (4.8-10.8)
--- NOTE | 2022-04-24 06:56 | PM.EVENT ---
Event Note Date of Service: 04/24/22 Event Note: patient very restless, constantly trying to get out of bed, has already had a fall while in the hospital. Very concerned about patient getting out of bed and falling, this time will treat him with Time Spent With Patient Time: Total time managing care of this patient today ____ minutes.
[2022-04-24 07:04] LABS: Anion Gap 14 (12-20); Blood Urea Nitrogen 27 mg/dL (9-16); Calcium 8.3 mg/dL (8.4-10.2); Carbon Dioxide 21 mmol/L (22-29); Chloride 115 mmol/L (96-108); Creatinine Clr Calc Pharmacy 33.6; Estimated Glomerular Filt Rate 35; Glucose Random 140 mg/dL (60-115); Potassium 4.5 mmol/L (3.3-5.1); Sodium 145 mmol/L (135-145)
--- NOTE | 2022-04-24 07:23 | HE.PHANOTE ---
Vancomycin dosing addendum Patient scr is down to 1.86 from 1.98. Patients level due tomorrow 04/25/ @1400. Continue current regiment. Predicted auc 424 mg/L/hr
[2022-04-24 07:25] VITALS: BP 152/85; PULSE 74; RESP 12; TEMP 36.1; O2SAT 96
[2022-04-24 07:55] LABS: Glucose, Whole Blood 206 mg/dL (60-115)
[2022-04-24] MEDS: Sodium Bicarbonate 650 MG TABLET PO ×2 (08:08→21:21)
[2022-04-24] MEDS: nadoloL 20 MG TABLET PO (08:08)
[2022-04-24] MEDS: rifAXIMin 550 MG TABLET PO ×2 (08:08→21:21)
[2022-04-24] MEDS: Thiamine HCL 100 MG TABLET PO (08:08)
[2022-04-24] MEDS: amLODIPine Besylate 10 MG TABLET PO (08:08)
[2022-04-24] MEDS: Insulin Lispro 100 UNIT/ML 3 ML VIAL SUBCUT ×3 (08:13→21:21)
--- NOTE | 2022-04-24 11:00 | MHC.CM.PN ---
EMR REVIEWED, PT REMAINS ON 6L O2 AND NOT READY FOR D/C, ANTIC D/C TO [facility] ONCE MEDICALLY CLEARED, CM WILL CONT TO FOLLOW D/C NEEDS.
[2022-04-24 11:04] VITALS: BP 116/70; PULSE 63; RESP 12; TEMP 35.8; O2SAT 100
[2022-04-24 11:29] LABS: Glucose, Whole Blood 235 mg/dL (60-115)
[2022-04-24 11:58] VITALS: O2SAT 97
[2022-04-24] MEDS: cefTRIAXone sodium 1 GM in 0.9 % Sodium Chloride 50 ML IV (13:22)
--- NOTE | 2022-04-24 13:57 | HO.PM.IMPN ---
Subjective Subjective Date of Service: 04/24/22 Interval History: seen and examined this morning patient sitting up in bed, eating breakfast says he feels well, does report intermittent dry cough Review of Systems Review of Systems: Yes all other systems are reviewed and are negative Constitutional Constitutional: Denies chills and Denies fever(s) Cardiovascular Cardiovascular: Denies chest pain, Denies palpitations and Denies dyspnea Respiratory Respiratory: Reports cough and Denies dyspnea Gastrointestinal Gastrointestinal: Denies abdominal pain Endocrine Endocrine: Denies palpitations Physical Exam Vital Signs: Vital Signs: Last Vital Signs Temp 96.4 F L 04/24/22 11:04 Pulse 63 04/24/22 11:04 Resp 12 04/24/22 11:04 BP 116/70 04/24/22 11:04 Pulse Ox 97 04/24/22 11:58 O2 Del Method 04/24/22 11:58 O2 Flow Rate 4 04/24/22 11:58 FiO2 50 04/22/22 11:46 Oxygen Flow Rate 4 03/31/22 10:53 BMI result Body Mass Index 29.5 Const: General: comfortable, no acute distress, alert and awake Nutritional Appearance: overweight Orientation/consciousness: oriented to person Resp: Other: diminished breath sounds Effort & Inspection: normal respiratory effort, able to speak in complete sentences, no respiratory distress and no use of accessory muscles Cardio: Rate: regular rate Heart sounds: S1 normal heart sound present and S2 normal heart sound present GI: Inspection: No distended Palpation (GI): Soft to palpation and nontender : Other: villareal in place, clear urine left nephrostomy tube in place Neuro: Other: grossly nonfocal General: oriented to person Extrem: Other: moving all 4 extremities spontaneously General: Yes no pedal edema Objective Data Active Medications Acetaminophen (Acetaminophen 325 Mg Tablet) 650 mg PO Q6H PRN PRN Reason: Pain, Mild (Pain Scale 1-3) Last Admin: 04/09/22 21:49 Dose: 650 mg Documented By: JOVANNI Amlodipine Besylate (Amlodipine Besylate 10 Mg Tablet) 10 mg PO DAILY [facility]; Protocol Last Admin: 04/24/22 08:08 Dose: 10 mg Documented By: BIANCA Aspirin (Aspirin 81 Mg Tab.Chew) 81 mg PO DAILY [facility] Last Admin: 04/06/22 09:04 Dose: Not Given Documented By: BIANCA Non-Admin Reason: See Note Atorvastatin Calcium (Atorvastatin Calcium 40 Mg Tablet) 40 mg PO DAILY [facility] Last Admin: 04/06/22 09:04 Dose: Not Given Documented By: BIANCA Non-Admin Reason: See Note Dextrose (Dextrose 50 % 25 Gm/50 Ml Syringe) 25 gm IVPUSH Q15M PRN; Protocol PRN Reason: per Hypoglycemia Standing Ord. Ferrous Sulfate (Ferrous Sulfate 324 Mg Abena.) 324 mg PO DAILY [facility] Last Admin: 04/10/22 09:41 Dose: 324 mg Documented By: HAM Glucose (Glucose Gel 15 Gm Gel..Gram.) 15 gm PO Q15M PRN; Protocol PRN Reason: per Hypoglycemia Standing Ord. Ceftriaxone Sodium 1 gm/ (Sodium Chloride) 50 mls @ 100 mls/hr IV Q24H [facility] Last Infusion: 04/24/22 13:57 Dose: 0 mls/hr Documented By: BIANCA Vancomycin HCl 750 mg/ Sodium (Chloride) 265 mls @ 265 mls/hr IV Q24H [facility] Last Infusion: 04/23/22 18:00 Dose: 0 mls/hr Documented By: BIANCA Insulin Human Lispro (Insulin Lispro 100 Unit/Ml 3 Ml Vial) 0 unit SUBCUT QIDACHS [facility]; Protocol Last Admin: 04/24/22 12:23 Dose: 2 unit Documented By: BIANCA Magnesium Oxide (Magnesium Oxide 400 Mg Tablet) 400 mg PO BID [facility] Last Admin: 04/11/22 09:00 Dose: Not Given Documented By: BECKY Non-Admin Reason: Hold per Melatonin (Melatonin 3 Mg Tablet) 6 mg PO BEDTIME PRN PRN Reason: insomnia Nadolol (Nadolol 20 Mg Tablet) 20 mg PO DAILY [facility]; Protocol Last Admin: 04/24/22 08:08 Dose: 20 mg Documented By: BIANCA Olanzapine (Olanzapine 5 Mg Tablet) 5 mg PO DAILY@1900 [facility] Last Admin: 04/23/22 19:46 Dose: 5 mg Documented By: CHIKA Ondansetron HCl (Ondansetron Hcl 4 Mg/2 Ml Vial) 4 mg IVPUSH Q6H PRN PRN Reason: Nausea Last Admin: 04/12/22 15:07 Dose: 4 mg Documented By: MOHAN Pharmacy Consult (Consult Rx Vancomycin Dosing) 1 each MISCELLANE DAILY PRN PRN Reason: Consult order Rifaximin (Rifaximin 550 Mg Tablet) 550 mg PO BID [facility] Last Admin: 04/24/22 08:08 Dose: 550 mg Documented By: JOLIE-ANDRESSA Sodium Bicarbonate (Sodium Bicarbonate 650 Mg Tablet) 650 mg PO BID [facility] Last Admin: 04/24/22 08:08 Dose: 650 mg Documented By: JOLIE-ANDRESSA Sodium Chloride (0.9 % Sodium Chloride Flush 3 Ml Syringe) 3 ml IVFLUSH QSHIFT [facility] Last Admin: 04/24/22 07:39 Dose: Not Given Documented By: JOLIE-ANDRESSA Non-Admin Reason: See Note Thiamine HCl (Thiamine Hcl 100 Mg Tablet) 100 mg PO DAILY [facility] Last Admin: 04/24/22 08:08 Dose: 100 mg Documented By: JOLIE-ANDRESSA Triamcinolone Acetonide (Triamcinolone Acet 0.1 % Cream 15 Gm Tube) 1 appl TOPICAL BID PRN; Protocol PRN Reason: Rash Labs CBC & Chem 7: 04/24/22 06:30 04/24/22 06:30 Labs: Laboratory Results - last 24 hr 04/23/22 04/23/22 04/23/22 14:10 16:05 20:12 MCV MCH MCHC RDW Plt Count MPV Absolute Nucleated RBC Nucleated RBC % (auto) Anion Gap Estim Creat Clear Calc Estimated GFR POC Glucose 119 H 278 H Random Glucose Calcium Random Vancomycin 15.2 04/24/22 04/24/22 04/24/22 06:30 06:30 07:27 MCV 89.5 MCH 30.0 MCHC 33.5 RDW 16.8 H Plt Count 116 L D MPV 10.7 Absolute Nucleated RBC 0.000 Nucleated RBC % (auto) 0.0 Anion Gap 14 Estim Creat Clear Calc 33.6 Estimated GFR 35 POC Glucose 206 H Random Glucose 140 H Calcium 8.3 L Random Vancomycin 04/24/22 11:04 MCV MCH MCHC RDW Plt Count MPV Absolute Nucleated RBC Nucleated RBC % (auto) Anion Gap Estim Creat Clear Calc Estimated GFR POC Glucose 235 H Random Glucose Calcium Random Vancomycin Microbiology Microbiology Results: Microbiology 04/21/22 13:59 Blood Culture - Preliminary Blood - Venous No growth after 48 hours. 04/21/22 13:59 Blood Culture - Preliminary Blood - Venous No growth after 48 hours. Assessment and Plan (1) Obstructive nephropathy: Status: Acute (2) ANDREEA (acute kidney injury): Status: Acute Plan 76-year-old male presents unresponsive, hypotensive, hypothermic in the backdrop of active urinary sediment.? SIRS 04/21 patient noted to have low grade fever (100.2), RR 22, HR 114 - was started on empiric antibiotics no source of infection was identified. cxr negative, UA without bacteria blood cultures negative no sepsis acute hypoxemic respiratory failure - multifactorial possible secondary hypoalbuminemia, liver disease/cirrhosis, less likely CHF echo : ef 55-60% 04/11 CXR patchy opacities s/p 5 days of zosyn and doxycycline 04/21 repeat cxr - unremarkable previously on high flow, weaned down to 4L Continue suctioning prn,? chest physiotherapy as needed toxic metabolic encephalopathy:? Multifactorial (electrolytic abnormalities/poor oral intake/ dementia,andreea on ckd) - improving CT head negative, mri reviewed by neuro, EEG due to fairly severe diffuse background slowing consistent with a diffuse encephalopathic process. seen by neuro-encephalopathy Possibly?related to multifactorial basis with hypoxia, metabolic abnormalities and baseline dementia Resumed scheduled zyprexa pneumonia Completed 5 days zosyn and doxycycline hx of HCC s/p ablation, as well as hx of bladder cancer Did not tolerate palliative immunotherapy. Follows with outpt urology at [facility] who may be recommending palliative radiation therapy to stop bleeding/clots. Not a surgical candidate. s/p CBI HCP declines right sided nephrostomy tube Will continue villareal on discharge given admission for obstructive nephropathy with left nephrostomy tube in place and persistent moderate/marked right ureterectasis diffusely, family refusing right nephrostomy tube, with background obstructive bladder cancer with recurrent hematuria- hematuria resolved at this time Intermittent hypothermia likely central, doubt infection Patient with subclinical hypothyroidism, not likely contributory Olanzepine held for 4 days with recurrence of hypothermia. Not likely related to antipsychotic use Not meeting other SIRS criteria, less likely related to infection -Maru hugger prn Chronic normocytic anemia/thrombocytopenia Multifactorial r/t liver dz, hematuria H/H down 04/23, transfused one unit RBC 04/23 follow cbc, Transfuse if hgb <7 follow daily CBCs epo as ordered by nephrology aspirin on hold Insulin dependent type 2 diabetes- glucose levels reasonably controlled Continue diabetic diet POC glucose, SSI Dementia unspecified with agitated features/schizophrenia evaluated by psychiatry- olanzepine, continue 5mg nightly - HCP Clif requested dosing be scheduled earlier, changed to 7pm UTI urine culture from 04/14 - no growth completed course of antibiotics andreea on ckd (stage unclear, per family cr is between 2-3): multifactorial -ftt/bladder cancer ,hematuria cr trending down continue NaHCO3, CO2<24 Follow BMP outpatient follow up with nephrology Hepatic cirrhosis continue Rifaximin/nadolol DNR/DNI DVT ppx - mechanical devices-due to Anemia/hematuria/thrombocytopenia reason for continued hospitalization: hypoxia HCP - Clif [phone] attending - dr. Lynn Time Spent With Patient Time: Total time managing care of this patient today ____ minutes. Quality Stroke Does the patient have a stroke diagnosis?: No VTE Prior VTE?: No VTE Risk Level:: Medical - moderate - high VTE Device Contraindication: N/A - Device Ordered VTE Drug Contraindication: Treatment Not Indicated
--- NOTE | 2022-04-24 15:06 | MHC.CM.PN ---
PER HOSPITALIST PT'S NEPHEW/HCP D[facility]NEY DOES NOT WANT PT TO RETURN TO [facility] AND WOULD LIKE HIM IN A [place] [facility] W/PREFERRED FACILITY [address], REFERRAL HAS BEEN PLACED.
[2022-04-24 16:00] VITALS: BP 118/70; PULSE 64; RESP 19
[2022-04-24 16:25] LABS: Glucose, Whole Blood 182 mg/dL (60-115)
[2022-04-24] MEDS: vancomycin HCL 750 MG in 0.9 % Sodium Chloride 250 ML 265 MG IV (17:30)
[2022-04-24] MEDS: OLANZapine 5 MG TABLET PO (17:33)
[2022-04-24 20:00] VITALS: BP 137/74; PULSE 70; RESP 19; TEMP 36.5; O2SAT 94
[2022-04-24 20:48] LABS: Glucose, Whole Blood 241 mg/dL (60-115)
[2022-04-25] VITALS: BP 124/77; PULSE 63; RESP 18; TEMP 35.8; O2SAT 94
[2022-04-25 04:00] VITALS: BP 141/79; PULSE 65; RESP 18; TEMP 36.4; O2SAT 93
[2022-04-25 07:41] VITALS: BP 128/61; PULSE 84; RESP 12; TEMP 35.8; O2SAT 97
[2022-04-25 07:41] LABS: Glucose, Whole Blood 233 mg/dL (60-115)
[2022-04-25] MEDS: nadoloL 20 MG TABLET PO (08:51)
[2022-04-25] MEDS: Thiamine HCL 100 MG TABLET PO (08:51)
[2022-04-25] MEDS: rifAXIMin 550 MG TABLET PO (08:51)
[2022-04-25] MEDS: Insulin Lispro 100 UNIT/ML 3 ML VIAL SUBCUT ×4 (08:51→20:42)
[2022-04-25] MEDS: Sodium Bicarbonate 650 MG TABLET PO ×2 (08:51→20:36)
[2022-04-25] MEDS: 0.9 % Sodium Chloride Flush 3 ML SYRINGE IVFLUSH ×2 (08:52→15:58)
[2022-04-25] MEDS: amLODIPine Besylate 10 MG TABLET PO (08:53)
--- NOTE | 2022-04-25 08:59 | HO.PM.IMPN ---
Subjective Subjective Date of Service: 04/25/22 Interval History: seen and examined this morning patient sitting up in chair, answers question doing well otherwise, no specific complaint no more hematuria Review of Systems Limited secondary to patient mental status General: +malaise. No fevers, unintentional weight loss Cardiovascular: No chest pain, palpitations, or leg edema Respiratory: +cough, +chest congestion. No shortness of breath. GI: +rectal pain. No abdominal pain, nausea, vomiting, diarrhea, constipation, melena, hematochezia Physical Exam Vital Signs: Vital Signs: Last Vital Signs Temp 96.5 F L 04/25/22 07:41 Pulse 84 04/25/22 07:41 Resp 12 04/25/22 07:41 BP 128/61 04/25/22 07:41 Pulse Ox 97 04/25/22 07:41 O2 Del Method 04/25/22 07:41 O2 Flow Rate 4 04/25/22 07:41 FiO2 50 04/22/22 11:46 Oxygen Flow Rate 4 03/31/22 10:53 BMI result Body Mass Index 29.5 Const: Other: sleepy but arousable to verbal stimuli General: comfortable, no acute distress, alert and awake Nutritional Appearance: overweight Orientation/consciousness: oriented to person Resp: Other: diminished breath sounds Effort & Inspection: normal respiratory effort, able to speak in complete sentences, no respiratory distress and no use of accessory muscles Cardio: Other: No S4; positive S1-S2; no S3 murmurs rubs or gallops Rate: regular rate Heart sounds: S1 normal heart sound present and S2 normal heart sound present GI: Inspection: No distended Palpation (GI): Soft to palpation and nontender : Other: villareal in place, clear urine left nephrostomy tube in place Back/Spine/Pelvis: Other: Percutaneous nephrostomy tube draining clear fluid; flushes well per nursing Neuro: Other: grossly nonfocal General: oriented to person Extrem: Other: moving all 4 extremities spontaneously General: Yes no pedal edema Objective Data Active Medications Acetaminophen (Acetaminophen 325 Mg Tablet) 650 mg PO Q6H PRN PRN Reason: Pain, Mild (Pain Scale 1-3) Last Admin: 04/09/22 21:49 Dose: 650 mg Documented By: JOVANNI Amlodipine Besylate (Amlodipine Besylate 10 Mg Tablet) 10 mg PO DAILY [facility]; Protocol Last Admin: 04/24/22 08:08 Dose: 10 mg Documented By: BIANCA Aspirin (Aspirin 81 Mg Tab.Chew) 81 mg PO DAILY [facility] Last Admin: 04/06/22 09:04 Dose: Not Given Documented By: BIANCA Non-Meeta Reason: See Note Atorvastatin Calcium (Atorvastatin Calcium 40 Mg Tablet) 40 mg PO DAILY [facility] Last Admin: 04/06/22 09:04 Dose: Not Given Documented By: BIANCA Non-Admin Reason: See Note Dextrose (Dextrose 50 % 25 Gm/50 Ml Syringe) 25 gm IVPUSH Q15M PRN; Protocol PRN Reason: per Hypoglycemia Standing Ord. Ferrous Sulfate (Ferrous Sulfate 324 Mg Tablet.Dr) 324 mg PO DAILY [facility] Last Admin: 04/10/22 09:41 Dose: 324 mg Documented By: HAM Glucose (Glucose Gel 15 Gm Gel..Gram.) 15 gm PO Q15M PRN; Protocol PRN Reason: per Hypoglycemia Standing Ord. Ceftriaxone Sodium 1 gm/ (Sodium Chloride) 50 mls @ 100 mls/hr IV Q24H [facility] Last Infusion: 04/24/22 13:57 Dose: 0 mls/hr Documented By: BIANCA Vancomycin HCl 750 mg/ Sodium (Chloride) 265 mls @ 265 mls/hr IV Q24H [facility] Last Infusion: 04/24/22 20:01 Dose: 0 mls/hr Documented By: RONI Insulin Human Lispro (Insulin Lispro 100 Unit/Ml 3 Ml Vial) 0 unit SUBCUT QIDACHS [facility]; Protocol Last Admin: 04/25/22 08:51 Dose: 2 unit Documented By: MOHAN Magnesium Oxide (Magnesium Oxide 400 Mg Tablet) 400 mg PO BID [facility] Last Admin: 04/11/22 09:00 Dose: Not Given Documented By: BECYK Non-Admin Reason: Hold per Melatonin (Melatonin 3 Mg Tablet) 6 mg PO BEDTIME PRN PRN Reason: insomnia Nadolol (Nadolol 20 Mg Tablet) 20 mg PO DAILY [facility]; Protocol Last Admin: 04/25/22 08:51 Dose: 20 mg Documented By: MOHAN Olanzapine (Olanzapine 5 Mg Tablet) 5 mg PO DAILY@1900 [facility] Last Admin: 04/24/22 17:33 Dose: 5 mg Documented By: ALIRIO Ondansetron HCl (Ondansetron Hcl 4 Mg/2 Ml Vial) 4 mg IVPUSH Q6H PRN PRN Reason: Nausea Last Admin: 04/12/22 15:07 Dose: 4 mg Documented By: MOHAN Pharmacy Consult (Consult Rx Vancomycin Dosing) 1 each MISCELLANE DAILY PRN PRN Reason: Consult order Rifaximin (Rifaximin 550 Mg Tablet) 550 mg PO BID [facility] Last Admin: 04/25/22 08:51 Dose: 550 mg Documented By: MOHAN Sodium Bicarbonate (Sodium Bicarbonate 650 Mg Tablet) 650 mg PO BID [facility] Last Admin: 04/25/22 08:51 Dose: 650 mg Documented By: MOHAN Sodium Chloride (0.9 % Sodium Chloride Flush 3 Ml Syringe) 3 ml IVFLUSH QSHIFT [facility] Last Admin: 04/25/22 08:52 Dose: 3 ml Documented By: MOHAN Thiamine HCl (Thiamine Hcl 100 Mg Tablet) 100 mg PO DAILY [facility] Last Admin: 04/25/22 08:51 Dose: 100 mg Documented By: MOHAN Triamcinolone Acetonide (Triamcinolone Acet 0.1 % Cream 15 Gm Tube) 1 appl TOPICAL BID PRN; Protocol PRN Reason: Rash Labs CBC & Chem 7: 04/24/22 06:30 04/25/22 09:48 Labs: Laboratory Results - last 24 hr 04/24/22 04/24/22 04/24/22 11:04 16:21 20:18 POC Glucose 235 H 182 H 241 H 04/25/22 07:22 POC Glucose 233 H Assessment and Plan (1) Obstructive nephropathy: Status: Acute (2) Acute blood loss anemia: Status: Acute (3) ANDREEA (acute kidney injury): Status: Acute Plan 76-year-old male presents unresponsive, hypotensive, hypothermic in the backdrop of active urinary sediment.? ?#acute hypoxemic respiratory failure,? possible secondary hypoalbuminemia ,possible liver disease /cirrosis ,less likely CHF, now possible pneumonia- seems to be resolved, currently 95% on RA -echo : ef 55-60% On admission: chest x-ray-? Atelectasis /effusion, ABG reviewed- pH seems fine., ammonia? Fine. Continue suctioning prn,? chest physiotherapy Received Lasix for 1 day but seems like less likely CHF but more likely due to atelectasis/ hypoalbuminemia/now with pneumonia 04/11 CXR shwoing low lung cvolumes with similar small right sided pleural effusions and increased right >left patchy parenchymal airspace opacities reflective of atelectasis vs superimposed infection. Started on zosyn and doxycycline, completed 5 days treatment #toxic metabolic encephalopathy :? Multifactorial(electrolytic abnormalities/poor oral intake/ dementia/zyprexa,andreea on ckd)- mentation now baseline CT head negative,mri reviewed by neuro,EEG due to fairly severe diffuse background slowing consistent with a diffuse encephalopathic process. neuro saw the patient-encephalopathy Possibly? related to multifactorial basis with? hypoxia, metabolic abnormalities and baseline dementia supportive care. -Resume scheduled zyprexa per psychiatry -Treat for pneumonia as below. Recheck for UTI with UA/UC given ongoing encephalopathy and hypothermia -Abdomen also noted to be distended- check abd/pelvis CT #Acute pneumonia-resolved -04/11 CXR shwoing low lung cvolumes with similar small right sided pleural effusions and increased right >left patchy parenchymal airspace opacities reflective of atelectasis vs superimposed infection. Started on zosyn and doxycycline -Completed 5 days zosyn and doxyclycine. D/c'd #hx of HHC s/p ablation ,as well as hx of bladder cancer -Did not tolerate palliative immunotherapy. Follows with outpt urology [facility] who may be recommending palliative radiation therapy to stop bleeding/clots. Not a surgical candidate. -supportive care. -Continue CBI for hematuria. Required 3 units PRBC total during admission. Clots recurred overnight 04/15- requiring irrigation by nursing and urology. Continue CBI WO, now with light pink output, no clots -H/H dropped to 6.8/20.2%. Discussions around hospice have been initiated with nephew, but he is not ready to make the decision and would like patient transfused. Discussed that hematuria will be a recurrent issue and continuing transfusions will not resolve any long tterm issue. Hospice referral requested. 1 unit PRBC received. H/H improved to 9.1/26.5% this am -Family declines right sided nephrostomy tube -Follow CBC -slow cbi #UTI -resolved following 7 days abx. -UA/UC repeated 04/14 due to recurrent hypothermia with negative cultures. # Intermittent hypothermia -Likely secondary to poor nutrition, now eating better -Patient with subclinical hypothyroidism, not likely contributory -Olanzepine held for 4 days with recurrence of hypothermia. Not likely related to antipsychotis use -Not meeting other SIRS criteria, less likely related to infection -Maru oshea prn #Chronic normocytic anemia/thrombocytopenia -Multifactorial -H/H and PLT stable -Transfuse if hgb <7 -follow daily CBCs #Insulin dependent type 2 diabetes- glucsoe levels reasonably controlled -Continue PPN/diabetic diet -POC glucose -humalog SS #Dementia unspecified with agitated features -evaluated by pscyhiatry- olanzepine resumed, continue 5mg nightly ?#failure to thrive/hypoalbuminemia:? patient is not eating well for several weeks. Tolerating one PO meal daily when given by nephew, otherwise still PPN. -Olanzepine resumed last night. Patient more oriented, hopefully with less paranoia. Encourage PO intake for meals -PPN discontinued, eating better -No TPN per family (Clif finnegan, HCP) -seen by speech and swallow -added diet. diet can be tailered as per menatl status. #andreea on ckd(stage unclear ,per family cr is between 2-3): multifactorial -ftt/bladder canncer ,hematuria- resolved cr trending down- now 1.89 as per family his basline cr is between 2-3 hold nephrotoxic meds ,iv hydration -Per nephrology continue LR, avoid nephrotoxic agents, dc octreotide -Resume NaHCO3, CO2<24 -Follow BMP #Hepatic cirrhosis -Rifampin/nadolol has been on hold 2/2 mental status. Resume nadolol and rifampin d/w Gi - ANDREEA less likely hepatorenal. As above ?above management discussed with patient family in detail length they understand and in agreement with the above , healthcare proxy Mr. Menezes- they understand the patient prognosis is poor, currently continue conservative management,Mr menezes -does not wnat tube feeding or HD. Further discussed prognosis with Clif finnegan, this afternoon. He wishes for palliative therapy for his uncle, but is not quite ready to make the decision to move to hospice. Referral is placed for further discussion. Nephew does wish for blood transfusion today knows this will only improve anemia short term and hematuria will recur given bladder cancer. He has had discussions [facility] urologist about palliative radiation therapy to help stop bleeding, unsure if this can take place with hospice. Referral to hospice for information placed by CM. PPN discontinued. Encourage PO feeds. Full code Vena dynes boots-due to? Anemia/thrombocytopenia ongoing hospitalization for treatment:multiple issues ,acute hypoxemic respiratory failure multifactorial,FTT transitioning off PPN, toxic metabolic encephalopathy, ongoing hematuria requiring transfusion and CBI Time Spent With Patient Time: Total time managing care of this patient today ____ minutes. Quality Stroke Does the patient have a stroke diagnosis?: No VTE Prior VTE?: No VTE Risk Level:: Medical - moderate - high VTE Device Contraindication: N/A - Device Ordered VTE Drug Contraindication: Treatment Not Indicated
[2022-04-25 10:21] LABS: Creatinine Clr Calc Pharmacy 38.3; Estimated Glomerular Filt Rate 41
[2022-04-25 11:05] VITALS: BP 117/66; PULSE 56; RESP 12; TEMP 35.7; O2SAT 98
[2022-04-25 12:03] LABS: Glucose, Whole Blood 320 mg/dL (60-115)
[2022-04-25] MEDS: cefTRIAXone sodium 1 GM in 0.9 % Sodium Chloride 50 ML IV (13:50)
[2022-04-25 15:03] VITALS: BP 100/56; PULSE 55; RESP 16; TEMP 35.7; O2SAT 98
[2022-04-25 15:43] LABS: Vancomycin Random 16.6 mcg/mL (15-20)
[2022-04-25 15:56] LABS: Glucose, Whole Blood 207 mg/dL (60-115)
[2022-04-25] MEDS: vancomycin HCL 750 MG in 0.9 % Sodium Chloride 250 ML 265 MG IV (15:57)
--- NOTE | 2022-04-25 18:41 | PC.NURSE ---
at 17:45 pt tried to get out of bed multiple time, took off his NC. pt was increasingly agitated and confused saying this is my house . pt also resisted to care when IV meds was given. notified. Consult for sitter was initiated.
--- NOTE | 2022-04-25 19:21 | PM.PNNEP ---
Subjective Subjective Date of Service: 04/25/22 Interval history: Seen and examined, events noted Physical Exam Vital Signs: Vital Signs: Last Vital Signs Temp 96.2 F L 04/25/22 15:03 Pulse 55 04/25/22 15:03 Resp 16 04/25/22 15:03 BP 100/56 L 04/25/22 15:03 Pulse Ox 98 04/25/22 15:03 O2 Del Method 04/25/22 15:03 O2 Flow Rate 3 04/25/22 15:03 FiO2 50 04/22/22 11:46 Oxygen Flow Rate 4 03/31/22 10:53 BMI result Body Mass Index 29.5 Const: Other: sleepy but arousable to verbal stimuli General: no acute distress, ill appearing and lethargic Nutritional Appearance: overweight and Edematous Orientation/consciousness: oriented to person, oriented to place and lethargic HEENT: Head: Yes normocephalic and Yes atraumatic Face and sinus: Yes normal facial exam Mouth: moist mucous membranes Eyes: Sclerae: sclerae normal EOM: EOMs intact bilaterally Neck: Other: supple Neck: Yes supple Chest: Other: clear Chest palpation & inspection: normal inspection of the chest Resp: Other: diminished breath sounds left basilar crackles Effort & Inspection: no respiratory distress Auscultation: crackles (Diffuse bilateral) Cardio: Other: RRR Rate: regular rate Rhythm: regular rhythm Heart sounds: no murmurs and no rubs GI: Other: slt distended,decreased bowel sounds Inspection: Yes normal to inspection and No distended Palpation (GI): Soft to palpation Auscultation: normal bowel sounds : Other: villareal in place, pink output left nephrostomy tube in place Penis: normal penis Scrotum: scrotum normal Back/Spine/Pelvis: Other: Percutaneous nephrostomy tube draining clear fluid; flushes well per nursing Cervical Spine: normal cervical lordosis Thoracic/Lumbar Spine: thoracic and lumbar spine normal to inspection Skin: General skin exam: no rashes or lesions noted Neuro: Other: limited assessment moving all extremities, no focal deficits appreciated General: oriented to person and oriented to place Extrem: Other: No edema bilaterally General: Yes normal to inspection, No clubbing and No cyanosis Psych: Other: somnolence Objective Data Labs CBC & Chem 7: 04/24/22 06:30 04/25/22 09:48 Labs: Laboratory Results - last 24 hr 04/24/22 04/25/22 04/25/22 20:18 07:22 09:48 Creatinine 1.63 H Estim Creat Clear Calc 38.3 Estimated GFR 41 POC Glucose 241 H 233 H Random Vancomycin 04/25/22 04/25/22 04/25/22 11:04 13:52 15:05 Creatinine Estim Creat Clear Calc Estimated GFR POC Glucose 320 H 207 H Random Vancomycin 16.6 Microbiology Microbiology Results: Microbiology 04/21/22 13:59 Blood - Venous Blood Culture - Preliminary No growth after 48 hours. 04/21/22 13:59 Blood - Venous Blood Culture - Preliminary No growth after 48 hours. 04/14/22 11:15 Blood - Venous Blood Culture - Final No growth after 5 days. 04/14/22 11:15 Blood - Venous Blood Culture - Final No growth after 5 days. 04/14/22 00:00 Urine clean catch - Urine villavicencio top Urine Culture - Final No growth. 03/31/22 15:07 Blood - Venous Blood Culture - Final No growth after 5 days. 03/31/22 15:07 Blood - Venous Blood Culture - Final No growth after 5 days. 03/31/22 00:00 Urine Other - Nephrostomy Urine Culture - Final Staphylococcus cohnii ssp urea 03/31/22 15:02 Blood - Venous Blood Culture - Final 03/31/22 15:02 Blood - Venous Blood Culture - Final Procedures Date of Service Date of Service: 04/25/22 Assessment & Plan Assessment and plan (1) ANDREEA (acute kidney injury): Status: Acute (2) Gross hematuria: Status: Acute (3) Diabetes type 2, controlled: Status: Acute (4) Sepsis: Status: Acute (5) Obstructive nephropathy: Status: Acute (6) Bladder cancer: Status: Acute (7) Acute respiratory failure with hypoxia: Status: Acute Plan 1. ANDREEA: peak SCr 5.2 noew back to BSL 1.6 2. Obs uropathy: L PCN tue; and R hydro--per chart PT/family donot want R PCN tube 3. Anemia: will track as outpt--Fe stores ok; will start epo No DIRECTOR OF OPERATIONS FOR THERAPY per PT/family ( noted by Dr Woods d/w nephew) REC: no new recs; xfuse as needed to keep > 7.0; track renal func; avoid NToxins; epo as ordered; cont d/w Hpxy GOC I will arrange f/u as outpt Time Spent With Patient Time: Total time managing care of this patient today ____ minutes. Progress Note: Quality Stroke Does the patient have a stroke diagnosis?: No
[2022-04-25 20:00] VITALS: BP 112/71; PULSE 78; RESP 17; TEMP 36.4; O2SAT 95
[2022-04-25 20:15] LABS: Glucose, Whole Blood 282 mg/dL (60-115)
[2022-04-25] MEDS: OLANZapine 5 MG TABLET PO (20:36)
[2022-04-26] VITALS (7 sets, daily range): BP systolic 132–170; BP diastolic 60–94; PULSE 61–76; RESP 16–20; TEMP 35.6–36.6; O2SAT 95–100
[2022-04-26] MEDS: 0.9 % Sodium Chloride Flush 3 ML SYRINGE IVFLUSH ×3 (01:42→23:33)
[2022-04-26 07:21] LABS: Creatinine Clr Calc Pharmacy 42.5; Estimated Glomerular Filt Rate 46
[2022-04-26 07:50] LABS: Glucose, Whole Blood 228 mg/dL (60-115)
--- NOTE | 2022-04-26 08:54 | HO.PM.IMPN ---
Subjective Subjective Date of Service: 04/26/22 Interval History: Seen and examined, events noted Review of Systems Limited secondary to patient mental status General: +malaise. No fevers, unintentional weight loss Cardiovascular: No chest pain, palpitations, or leg edema Respiratory: +cough, +chest congestion. No shortness of breath. GI: +rectal pain. No abdominal pain, nausea, vomiting, diarrhea, constipation, melena, hematochezia Constitutional Constitutional: Reports as per HPI, Reports no additional constitutional complaints, Denies chills and Denies fever(s) Cardiovascular Cardiovascular: Reports as per HPI, Reports no additional cardiovascular complaints, Denies chest pain, Denies palpitations and Denies dyspnea Respiratory Respiratory: Reports as per HPI, Reports no additional respiratory complaints, Reports cough and Denies dyspnea Gastrointestinal Gastrointestinal: Reports as per HPI, Reports no additional gastrointestinal complaints and Denies abdominal pain Genitourinary Genitourinary: Reports as per HPI Musculoskeletal Musculoskeletal: Reports no additional musculoskeletal complaints and Reports as per HPI Neurologic Neurologic: Reports system reviewed and no additional complaints, except as documented and Reports as per HPI Endocrine Endocrine: Denies palpitations Physical Exam Vital Signs: Vital Signs: Last Vital Signs Temp 96.0 F L 04/26/22 03:21 Pulse 61 04/26/22 07:34 Resp 20 04/26/22 07:34 BP 162/91 H 04/26/22 07:34 Pulse Ox 98 04/26/22 07:34 O2 Del Method 04/26/22 07:34 O2 Flow Rate 4 04/26/22 07:34 FiO2 50 04/22/22 11:46 Oxygen Flow Rate 4 03/31/22 10:53 BMI result Body Mass Index 29.5 Const: Other: sleepy but arousable to verbal stimuli General: comfortable, no acute distress, alert and awake Nutritional Appearance: overweight Orientation/consciousness: oriented to person Resp: Other: diminished breath sounds Effort & Inspection: normal respiratory effort, able to speak in complete sentences, no respiratory distress and no use of accessory muscles Cardio: Other: No S4; positive S1-S2; no S3 murmurs rubs or gallops Rate: regular rate Heart sounds: S1 normal heart sound present and S2 normal heart sound present GI: Inspection: No distended Palpation (GI): Soft to palpation and nontender : Other: villareal in place, clear urine left nephrostomy tube in place Back/Spine/Pelvis: Other: Percutaneous nephrostomy tube draining clear fluid; flushes well per nursing Neuro: Other: grossly nonfocal General: oriented to person Extrem: Other: moving all 4 extremities spontaneously General: Yes no pedal edema Objective Data Active Medications Acetaminophen (Acetaminophen 325 Mg Tablet) 650 mg PO Q6H PRN PRN Reason: Pain, Mild (Pain Scale 1-3) Last Admin: 04/09/22 21:49 Dose: 650 mg Documented By: JOVANNI Amlodipine Besylate (Amlodipine Besylate 10 Mg Tablet) 10 mg PO DAILY [facility]; Protocol Last Admin: 04/25/22 08:53 Dose: 10 mg Documented By: MOHAN Aspirin (Aspirin 81 Mg Tab.Chew) 81 mg PO DAILY [facility] Last Admin: 04/06/22 09:04 Dose: Not Given Documented By: BIANCA Non-Admin Reason: See Note Atorvastatin Calcium (Atorvastatin Calcium 40 Mg Tablet) 40 mg PO DAILY [facility] Last Admin: 04/06/22 09:04 Dose: Not Given Documented By: BIANCA Non-Admin Reason: See Note Dextrose (Dextrose 50 % 25 Gm/50 Ml Syringe) 25 gm IVPUSH Q15M PRN; Protocol PRN Reason: per Hypoglycemia Standing Ord. Ferrous Sulfate (Ferrous Sulfate 324 Mg Tablet.) 324 mg PO DAILY [facility] Last Admin: 04/10/22 09:41 Dose: 324 mg Documented By: HAM Glucose (Glucose Gel 15 Gm Gel..Gram.) 15 gm PO Q15M PRN; Protocol PRN Reason: per Hypoglycemia Standing Ord. Ceftriaxone Sodium 1 gm/ (Sodium Chloride) 50 mls @ 100 mls/hr IV Q24H [facility] Last Infusion: 04/25/22 15:00 Dose: 0 mls/hr Documented By: MOHAN Vancomycin HCl 750 mg/ Sodium (Chloride) 265 mls @ 265 mls/hr IV Q24H [facility] Last Infusion: 04/25/22 17:18 Dose: 0 mls/hr Documented By: MOHAN Insulin Human Lispro (Insulin Lispro 100 Unit/Ml 3 Ml Vial) 0 unit SUBCUT QIDACHS [facility]; Protocol Last Admin: 04/25/22 20:42 Dose: 6 unit Documented By: ALIRIO Magnesium Oxide (Magnesium Oxide 400 Mg Tablet) 400 mg PO BID [facility] Last Admin: 04/11/22 09:00 Dose: Not Given Documented By: BECKY Non-Admin Reason: Hold per MD Melatonin (Melatonin 3 Mg Tablet) 6 mg PO BEDTIME PRN PRN Reason: insomnia Nadolol (Nadolol 20 Mg Tablet) 20 mg PO DAILY [facility]; Protocol Last Admin: 04/25/22 08:51 Dose: 20 mg Documented By: MOHAN Olanzapine (Olanzapine 5 Mg Tablet) 5 mg PO DAILY@1900 [facility] Last Admin: 04/25/22 20:36 Dose: 5 mg Documented By: ALIRIO Ondansetron HCl (Ondansetron Hcl 4 Mg/2 Ml Vial) 4 mg IVPUSH Q6H PRN PRN Reason: Nausea Last Admin: 04/12/22 15:07 Dose: 4 mg Documented By: MOHAN Pharmacy Consult (Consult Rx Vancomycin Dosing) 1 each MISCELLANE DAILY PRN PRN Reason: Consult order Sodium Bicarbonate (Sodium Bicarbonate 650 Mg Tablet) 650 mg PO BID [facility] Last Admin: 04/25/22 20:36 Dose: 650 mg Documented By: ALIRIO Sodium Chloride (0.9 % Sodium Chloride Flush 3 Ml Syringe) 3 ml IVFLUSH QSHIFT [facility] Last Admin: 04/26/22 01:42 Dose: 3 ml Documented By: SINTIA Thiamine HCl (Thiamine Hcl 100 Mg Tablet) 100 mg PO DAILY [facility] Last Admin: 04/25/22 08:51 Dose: 100 mg Documented By: MOHAN Triamcinolone Acetonide (Triamcinolone Acet 0.1 % Cream 15 Gm Tube) 1 appl TOPICAL BID PRN; Protocol PRN Reason: Rash Labs CBC & Chem 7: 04/24/22 06:30 04/26/22 06:37 Labs: Laboratory Results - last 24 hr 04/25/22 04/25/22 04/25/22 09:48 11:04 13:52 Estim Creat Clear Calc 38.3 Estimated GFR 41 POC Glucose 320 H Random Vancomycin 16.6 04/25/22 04/25/22 04/26/22 15:05 19:55 06:37 Estim Creat Clear Calc 42.5 Estimated GFR 46 POC Glucose 207 H 282 H Random Vancomycin 04/26/22 07:35 Estim Creat Clear Calc Estimated GFR POC Glucose 228 H Random Vancomycin Assessment and Plan (1) Obstructive nephropathy: Status: Acute (2) Acute blood loss anemia: Status: Acute (3) ANDREEA (acute kidney injury): Status: Acute Plan 76-year-old male presents unresponsive, hypotensive, hypothermic in the backdrop of active urinary sediment.? ?#acute hypoxemic respiratory failure,? possible secondary hypoalbuminemia ,possible liver disease /cirrosis ,less likely CHF, now possible pneumonia- seems to be resolved, currently 95% on RA -echo : ef 55-60% On admission: chest x-ray-? Atelectasis /effusion, ABG reviewed- pH seems fine., ammonia? Fine. Continue suctioning prn,? chest physiotherapy Received Lasix for 1 day but seems like less likely CHF but more likely due to atelectasis/ hypoalbuminemia/now with pneumonia / CXR shwoing low lung cvolumes with similar small right sided pleural effusions and increased right >left patchy parenchymal airspace opacities reflective of atelectasis vs superimposed infection. Started on zosyn and doxycycline, completed 5 days treatment #toxic metabolic encephalopathy :? Multifactorial(electrolytic abnormalities/poor oral intake/ dementia/zyprexa,andreea on ckd)- mentation now baseline CT head negative,mri reviewed by neuro,EEG due to fairly severe diffuse background slowing consistent with a diffuse encephalopathic process. neuro saw the patient-encephalopathy Possibly? related to multifactorial basis with? hypoxia, metabolic abnormalities and baseline dementia supportive care. -Resume scheduled zyprexa per psychiatry -Treat for pneumonia as below. Recheck for UTI with UA/UC given ongoing encephalopathy and hypothermia -Abdomen also noted to be distended- check abd/pelvis CT #Acute pneumonia-resolved -04/11 CXR shwoing low lung cvolumes with similar small right sided pleural effusions and increased right >left patchy parenchymal airspace opacities reflective of atelectasis vs superimposed infection. Started on zosyn and doxycycline -Completed 5 days zosyn and doxyclycine. D/c'd #hx of HHC s/p ablation ,as well as hx of bladder cancer -Did not tolerate palliative immunotherapy. Follows with outpt urology [facility] who may be recommending palliative radiation therapy to stop bleeding/clots. Not a surgical candidate. -supportive care. -Continue CBI for hematuria. Required 3 units PRBC total during admission. Clots recurred overnight 04/15- requiring irrigation by nursing and urology. Continue CBI WO, now with light pink output, no clots -H/H dropped to 6.8/20.2%. Discussions around hospice have been initiated with nephew, but he is not ready to make the decision and would like patient transfused. Discussed that hematuria will be a recurrent issue and continuing transfusions will not resolve any long tterm issue. Hospice referral requested. 1 unit PRBC received. H/H improved to 9.1/26.5% this am -Family declines right sided nephrostomy tube -Follow CBC -slow cbi #UTI -resolved following 7 days abx. -UA/UC repeated 04/14 due to recurrent hypothermia with negative cultures. # Intermittent hypothermia -Likely secondary to poor nutrition, now eating better -Patient with subclinical hypothyroidism, not likely contributory -Olanzepine held for 4 days with recurrence of hypothermia. Not likely related to antipsychotis use -Not meeting other SIRS criteria, less likely related to infection -Maru oshea prn #Chronic normocytic anemia/thrombocytopenia -Multifactorial -H/H and PLT stable -Transfuse if hgb <7 -follow daily CBCs #Insulin dependent type 2 diabetes- glucsoe levels reasonably controlled -Continue PPN/diabetic diet -POC glucose -humalog SS #Dementia unspecified with agitated features -evaluated by pscyhiatry- olanzepine resumed, continue 5mg nightly ?#failure to thrive/hypoalbuminemia:? patient is not eating well for several weeks. Tolerating one PO meal daily when given by nephew, otherwise still PPN. -Olanzepine resumed last night. Patient more oriented, hopefully with less paranoia. Encourage PO intake for meals -PPN discontinued, eating better -No TPN per family (nephew, Clif, HCP) -seen by speech and swallow -added diet. diet can be tailered as per menatl status. #andreea on ckd(stage unclear ,per family cr is between 2-3): multifactorial -ftt/bladder canncer ,hematuria- resolved cr trending down- now 1.89 as per family his basline cr is between 2-3 hold nephrotoxic meds ,iv hydration -Per nephrology continue LR, avoid nephrotoxic agents, dc octreotide -Resume NaHCO3, CO2<24 -Follow BMP #Hepatic cirrhosis -Rifampin/nadolol has been on hold 2/2 mental status. Resume nadolol and rifampin d/w Gi - ANDREEA less likely hepatorenal. As above ?above management discussed with patient family in detail length they understand and in agreement with the above , healthcare proxy Mr. Menezes- they understand the patient prognosis is poor, currently continue conservative management,Mr menezes -does not wnat tube feeding or HD. Further discussed prognosis with nephew, Clif, this afternoon. He wishes for palliative therapy for his uncle, but is not quite ready to make the decision to move to hospice. Referral is placed for further discussion. Nephew does wish for blood transfusion today knows this will only improve anemia short term and hematuria will recur given bladder cancer. He has had discussions [facility] urologist about palliative radiation therapy to help stop bleeding, unsure if this can take place with hospice. Referral to hospice for information placed by CM. PPN discontinued. Encourage PO feeds. Full code Vena dynes boots-due to? Anemia/thrombocytopenia ongoing hospitalization for treatment:multiple issues ,acute hypoxemic respiratory failure multifactorial,FTT transitioning off PPN, toxic metabolic encephalopathy, ongoing hematuria requiring transfusion and CBI Time Spent With Patient Time: Total time managing care of this patient today ____ minutes. Quality Stroke Does the patient have a stroke diagnosis?: No VTE Prior VTE?: No VTE Risk Level:: Medical - moderate - high VTE Device Contraindication: N/A - Device Ordered VTE Drug Contraindication: Treatment Not Indicated
[2022-04-26] MEDS: Thiamine HCL 100 MG TABLET PO (08:59)
[2022-04-26] MEDS: Sodium Bicarbonate 650 MG TABLET PO ×2 (08:59→21:12)
[2022-04-26] MEDS: Insulin Lispro 100 UNIT/ML 3 ML VIAL SUBCUT ×4 (09:00→19:53)
[2022-04-26] MEDS: nadoloL 20 MG TABLET PO (09:00)
[2022-04-26] MEDS: amLODIPine Besylate 10 MG TABLET PO (09:00)
--- NOTE | 2022-04-26 12:03 | MHC.SL.SWA ---
Speech Pathologist Impression: Oropharyngeal phase dysphagia Risk of Aspiration Due to: Medically Fragile Poor PO Intake Reduced Cognition Weak Cough Dysphasia Diet Status: Recommend upgrade to CHOPPED/ADVANCED (NDD3) diet with THIN liquids by controlled cup sip only, continue with pills crushed in puree. Food to be moistened with sauces/ gravies, alternate bites of food with sips of liquid. Avoid hard tough to chew solids and mixed consistency. Recommend total supervision during PO intake, provide assistance as needed with tray set up and throughout meal. Diet order updated by LAGGING MACHINE OPERATOR. Update sent to MD, RN, RD via [employer] Message. Liquid Consistency and Strategies for Safe Swallow: Liquid Intake Recommendation: Thin Liquid Intake Strategies: Small Sips No Straws Solid Food Consistency: Dietary Recommendations: Chopped/Advanced (NDD3) Additional Modifications to Solid Foods: Patient will need 1-1 supervision during meals, provide assistance with tray set up and throughout meals as needed. Continue w/ aspiration precautions. Oral Medication Intake: Crushed with Puree Please contact the pharmacy regarding appropriate crushable or liquid drug formulations that are available whenever modified delivery is recommended. Compensatory Strategies and Precautions to be Taken for Safe Swallow: Sitting Upright (90 deg) No Straw Small Bites and Sips Alternate Liquids/Solids Rate of Ingestion Change Oral Check Avoid Specific Foods Supervision While Eating and Drinking for Safe Swallow: Total Supervision (1:1) Foods to Avoid: Tough hard to chew solids, Mixed consistencies (e.g. cereal with milk, thin broth soups with vegetable and meat pieces). Swallowing Recommended Treatments: Compens. Strategy Educat. Recommendation for Speech: Further Testing Needed Outpatient Speech Therapy Inpatient Speech Therapy Oxygen System Tester Clinican/Clinical Fellow: No Supervisory Statement: I have reviewed and agree with the student/clinical fellow's documentation: N/A Speech Language Pathologist: Florecita Ba M.A., [facility]-LAGGING MACHINE OPERATOR
--- NOTE | 2022-04-26 12:16 | MHC.CLN ---
F/U DIET ADVANCED TO NDD3 PER PICU NURSE EVAL. INTAKE USUALLY 100%. SKIN WITH DTI TO COCCYX. CONTINUE ENSURE TID TO INCREASE KCALS AND PROMOTE WOUND HEALING. SUPPLEMENT PROVIDES ADDITIONAL 1050 KCALS, 60 G PROTEIN. CONTINUE TO MONITOR PO INTAKE CLOSELY. FOLLOW FOR WOUND HEALING.
[2022-04-26 12:17] LABS: Glucose, Whole Blood 365 mg/dL (60-115)
--- NOTE | 2022-04-26 13:11 | MHC.CM.PN ---
Per ROUNDS discussion, Patient is medically cleared for dc to SNF/STR today. [facility] remains to be the only accepting SNF. CM spoke with Patient's Nephew/DPOA/Clif @ [phone] and addressed the IMM with him (original was left at bedside, as discussed with Clif) and a copy has been placed on the chart; Clif has chosen to appeal the dc, per CM/Manager Rental/Karmen. Clif has indicated that he is working with an Ombudsman from [facility]- Homar Sue, who is in a meeting today until 4 PM but after that is going to try to assist Clif in getting Patient into a SNF that should Patient need to be sent out acute from the SNF, he would be sent to [facility].CM will follow.
--- NOTE | 2022-04-26 14:43 | MHC.CM.PN ---
Per Patient's Nephew/SUE/Clif's request, CM has confirmed that referrals have been made to [facility], [facility], and [facility] (all of who have denied Patient admission to those facilities). CM will follow.
[2022-04-26] MEDS: cefTRIAXone sodium 1 GM in 0.9 % Sodium Chloride 50 ML IV (15:20)
[2022-04-26 15:34] LABS: Glucose, Whole Blood 273 mg/dL (60-115)
--- NOTE | 2022-04-26 17:37 | PM.PNNEP ---
Subjective Subjective Date of Service: 04/26/22 Interval history: Seen and examined, events noted Physical Exam Vital Signs: Vital Signs: Last Vital Signs Temp 97.8 F 04/26/22 15:26 Pulse 69 04/26/22 15:26 Resp 17 04/26/22 15:26 BP 166/79 H 04/26/22 15:26 Pulse Ox 99 04/26/22 15:26 O2 Del Method 04/26/22 15:26 O2 Flow Rate 4 04/26/22 11:37 FiO2 50 04/22/22 11:46 Oxygen Flow Rate 4 03/31/22 10:53 BMI result Body Mass Index 29.5 Const: Other: sleepy but arousable to verbal stimuli General: cooperative, healthy appearing, comfortable, no acute distress, alert, awake, ill appearing and lethargic Nutritional Appearance: overweight and Edematous Orientation/consciousness: oriented to person, oriented to place, patient oriented x3 and lethargic HEENT: Head: Yes normocephalic and Yes atraumatic Face and sinus: Yes normal facial exam Mouth: moist mucous membranes Eyes: Sclerae: sclerae normal EOM: EOMs intact bilaterally Neck: Other: supple Neck: Yes normal visual inspection, Yes full ROM, Yes no lymphadenopathy, Yes trachea midline and Yes supple Chest: Other: clear Chest palpation & inspection: normal inspection of the chest Resp: Other: diminished breath sounds Effort & Inspection: normal respiratory effort, able to speak in complete sentences, no respiratory distress and no use of accessory muscles Auscultation: crackles (Diffuse bilateral) Cardio: Other: No S4; positive S1-S2; no S3 murmurs rubs or gallops Rate: regular rate Rhythm: regular rhythm Heart sounds: S1 normal heart sound present, S2 normal heart sound present, no gallops, no murmurs and no rubs GI: Other: slt distended,decreased bowel sounds Inspection: Yes normal to inspection and No distended Palpation (GI): Soft to palpation, nontender and Other GI palpation findings present ( Nontender) Auscultation: normal bowel sounds : Other: villareal in place, clear urine left nephrostomy tube in place Penis: normal penis Scrotum: scrotum normal Back/Spine/Pelvis: Other: Percutaneous nephrostomy tube draining clear fluid; flushes well per nursing Cervical Spine: normal cervical lordosis Thoracic/Lumbar Spine: thoracic and lumbar spine normal to inspection Skin: General skin exam: no rashes or lesions noted Neuro: Other: grossly nonfocal General: oriented to person, oriented to place, patient oriented x3, tone normal and moves all extremities Extrem: Other: moving all 4 extremities spontaneously General: Yes normal to inspection, Yes capillary refill normal, Yes no pedal edema, No clubbing, No cyanosis and Yes edema (1+ bilateral) Psych: Other: somnolence Objective Data Labs CBC & Chem 7: 04/24/22 06:30 04/26/22 06:37 Labs: Laboratory Results - last 24 hr 04/25/22 04/26/22 04/26/22 19:55 06:37 07:35 Creatinine 1.47 H Estim Creat Clear Calc 42.5 Estimated GFR 46 POC Glucose 282 H 228 H 04/26/22 04/26/22 11:39 15:28 Creatinine Estim Creat Clear Calc Estimated GFR POC Glucose 365 H* 273 H Microbiology Microbiology Results: Microbiology 04/21/22 13:59 Blood - Venous Blood Culture - Final No growth after 5 days. 04/21/22 13:59 Blood - Venous Blood Culture - Final No growth after 5 days. 04/14/22 11:15 Blood - Venous Blood Culture - Final No growth after 5 days. 04/14/22 11:15 Blood - Venous Blood Culture - Final No growth after 5 days. 04/14/22 00:00 Urine clean catch - Urine villavicencio top Urine Culture - Final No growth. 03/31/22 15:07 Blood - Venous Blood Culture - Final No growth after 5 days. 03/31/22 15:07 Blood - Venous Blood Culture - Final No growth after 5 days. 03/31/22 00:00 Urine Other - Nephrostomy Urine Culture - Final Staphylococcus cohnii ssp urea 03/31/22 15:02 Blood - Venous Blood Culture - Final 03/31/22 15:02 Blood - Venous Blood Culture - Final Procedures Date of Service Date of Service: 04/26/22 Assessment & Plan Assessment and plan (1) Obstructive nephropathy: Status: Acute (2) Acute blood loss anemia: Status: Acute (3) ANDREEA (acute kidney injury): Status: Acute Plan 76-year-old male presents unresponsive, hypotensive, hypothermic in the backdrop of active urinary sediment.? ?ANDREEA now resolved CKD stable - anemia with normal iron procrit ordered Time Spent With Patient Time: Total time managing care of this patient today ____ minutes. Progress Note: Quality Stroke Does the patient have a stroke diagnosis?: No
[2022-04-26] MEDS: vancomycin HCL 750 MG in 0.9 % Sodium Chloride 250 ML 265 MG IV (17:51)
[2022-04-26] MEDS: OLANZapine 5 MG TABLET PO (17:52)
[2022-04-26 19:16] LABS: Glucose, Whole Blood 229 mg/dL (60-115)
[2022-04-27 04:00] VITALS: BP 133/83; PULSE 78; RESP 18; TEMP 35.6; O2SAT 95
[2022-04-27 06:32] LABS: Creatinine Clr Calc Pharmacy 40.3; Estimated Glomerular Filt Rate 44
[2022-04-27 07:24] LABS: Glucose, Whole Blood 276 mg/dL (60-115)
[2022-04-27 07:36] VITALS: BP 168/86; PULSE 71; RESP 20; TEMP 35.9; O2SAT 97
--- NOTE | 2022-04-27 07:44 | P.CDIC_ITS ---
CDI Concurrent Query Documentation Clarification: PHYSICIAN'S DOCUMENTATION REQUEST Date of Query: 04/27/22 0744 Patient Name: Claudio Garcia Admit Date: 03/31/22 Dear Doctor, A review of the medical record indicates additional documentation may be needed. Please review below and update the documentation accordingly. Clinical Indicators: Is there a diagnosis that correlates with the findings below: Risk Factors/Clinical Indicators/Treatments Labs on 04/23: WBCs - 4.5 Hgb - 6.4 Plt - 81 Per provider progress notes: PMH: Chronic normocytic anemia/ thrombocytopenia Multifactorial r/t liver dz, hematuria H/H down 04/23, transfused one unit RBC 04/23 follow cbc, Transfuse if hgb <7 follow daily CBCs epo as ordered by nephrology Based on the above, could you clarify in the Progress Notes the appropriate diagnosis, if significant, that supports the above abnormalities and additional evaluation, monitoring, and/or treatment rendered: * 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 Thank you, Jill Peñaloza MS, RN, CCRN Extension: [phone] Please use your independent medical judgment in providing your response. THIS QUERY IS PART OF THE PERMANENT MEDICAL RECORD Provider Response: Other Other Diagnosis: pancytopenia
[2022-04-27] MEDS: Insulin Lispro 100 UNIT/ML 3 ML VIAL SUBCUT ×2 (07:56→12:04)
[2022-04-27] MEDS: nadoloL 20 MG TABLET PO (07:56)
[2022-04-27] MEDS: Sodium Bicarbonate 650 MG TABLET PO (07:57)
[2022-04-27] MEDS: Thiamine HCL 100 MG TABLET PO (07:57)
[2022-04-27] MEDS: amLODIPine Besylate 10 MG TABLET PO (07:57)
[2022-04-27] MEDS: 0.9 % Sodium Chloride Flush 3 ML SYRINGE IVFLUSH ×2 (07:59→16:24)
[2022-04-27 11:14] LABS: Glucose, Whole Blood 308 mg/dL (60-115)
[2022-04-27 11:36] VITALS: BP 163/77; PULSE 67; RESP 20; TEMP 34.8; O2SAT 95
--- NOTE | 2022-04-27 11:48 | HO.PM.IMPN ---
Subjective Subjective Date of Service: 04/27/22 Interval History: Seen and examined, events noted, periods of agitation, presently calm Review of Systems Limited secondary to patient mental status General: +malaise. No fevers, unintentional weight loss Cardiovascular: No chest pain, palpitations, or leg edema Respiratory: +cough, +chest congestion. No shortness of breath. GI: +rectal pain. No abdominal pain, nausea, vomiting, diarrhea, constipation, melena, hematochezia Constitutional Constitutional: Reports as per HPI, Reports no additional constitutional complaints, Denies chills and Denies fever(s) Cardiovascular Cardiovascular: Reports as per HPI, Reports no additional cardiovascular complaints, Denies chest pain, Denies palpitations and Denies dyspnea Respiratory Respiratory: Reports as per HPI, Reports no additional respiratory complaints, Reports cough and Denies dyspnea Gastrointestinal Gastrointestinal: Reports as per HPI, Reports no additional gastrointestinal complaints and Denies abdominal pain Genitourinary Genitourinary: Reports as per HPI Musculoskeletal Musculoskeletal: Reports no additional musculoskeletal complaints and Reports as per HPI Neurologic Neurologic: Reports system reviewed and no additional complaints, except as documented and Reports as per HPI Endocrine Endocrine: Denies palpitations Physical Exam Vital Signs: Vital Signs: Last Vital Signs Temp 94.7 F L 04/27/22 11:36 Pulse 67 04/27/22 11:36 Resp 20 04/27/22 11:36 BP 163/77 H 04/27/22 11:36 Pulse Ox 95 04/27/22 11:36 O2 Del Method 04/27/22 11:36 O2 Flow Rate 4 04/27/22 04:00 FiO2 50 04/22/22 11:46 Oxygen Flow Rate 4 03/31/22 10:53 BMI result Body Mass Index 29.5 Const: Other: sleepy but arousable to verbal stimuli General: comfortable, no acute distress, alert and awake Orientation/consciousness: oriented to person Resp: Other: diminished breath sounds Effort & Inspection: normal respiratory effort, able to speak in complete sentences, no respiratory distress and no use of accessory muscles Cardio: Other: No S4; positive S1-S2; no S3 murmurs rubs or gallops Rate: regular rate Heart sounds: S1 normal heart sound present and S2 normal heart sound present GI: Inspection: No distended Palpation (GI): Soft to palpation and nontender : Other: villareal in place, clear urine left nephrostomy tube in place Back/Spine/Pelvis: Other: Percutaneous nephrostomy tube draining clear fluid; flushes well per nursing Neuro: Other: grossly nonfocal General: oriented to person Extrem: Other: moving all 4 extremities spontaneously General: Yes no pedal edema Objective Data Active Medications Acetaminophen (Acetaminophen 325 Mg Tablet) 650 mg PO Q6H PRN PRN Reason: Pain, Mild (Pain Scale 1-3) Last Admin: 04/09/22 21:49 Dose: 650 mg Documented By: JOVANNI Amlodipine Besylate (Amlodipine Besylate 10 Mg Tablet) 10 mg PO DAILY [facility]; Protocol Last Admin: 04/27/22 07:57 Dose: 10 mg Documented By: JOZEF Aspirin (Aspirin 81 Mg Tab.Chew) 81 mg PO DAILY [facility] Last Admin: 04/06/22 09:04 Dose: Not Given Documented By: BIANCA Non-Admin Reason: See Note Atorvastatin Calcium (Atorvastatin Calcium 40 Mg Tablet) 40 mg PO DAILY [facility] Last Admin: 04/06/22 09:04 Dose: Not Given Documented By: BIANCA Non-Meeta Reason: See Note Dextrose (Dextrose 50 % 25 Gm/50 Ml Syringe) 25 gm IVPUSH Q15M PRN; Protocol PRN Reason: per Hypoglycemia Standing Ord. Ferrous Sulfate (Ferrous Sulfate 324 Mg Tablet.) 324 mg PO DAILY [facility] Last Admin: 04/10/22 09:41 Dose: 324 mg Documented By: HAM Glucose (Glucose Gel 15 Gm Gel..Gram.) 15 gm PO Q15M PRN; Protocol PRN Reason: per Hypoglycemia Standing Ord. Ceftriaxone Sodium 1 gm/ (Sodium Chloride) 50 mls @ 100 mls/hr IV Q24H [facility] Last Infusion: 04/26/22 16:13 Dose: 0 mls/hr Documented By: LOS Vancomycin HCl 750 mg/ Sodium (Chloride) 265 mls @ 265 mls/hr IV Q24H [facility] Last Infusion: 04/26/22 19:35 Dose: 0 mls/hr Documented By: JULIANNE Insulin Human Lispro (Insulin Lispro 100 Unit/Ml 3 Ml Vial) 0 unit SUBCUT QIDACHS [facility]; Protocol Last Admin: 04/27/22 07:56 Dose: 6 unit Documented By: JOZEF Magnesium Oxide (Magnesium Oxide 400 Mg Tablet) 400 mg PO BID [facility] Last Admin: 04/11/22 09:00 Dose: Not Given Documented By: BECKY Non-Admin Reason: Hold per MD Melatonin (Melatonin 3 Mg Tablet) 6 mg PO BEDTIME PRN PRN Reason: insomnia Nadolol (Nadolol 20 Mg Tablet) 20 mg PO DAILY [facility]; Protocol Last Admin: 04/27/22 07:56 Dose: 20 mg Documented By: JOZEF Olanzapine (Olanzapine 5 Mg Tablet) 5 mg PO DAILY@1900 [facility] Last Admin: 04/26/22 17:52 Dose: 5 mg Documented By: LOS Ondansetron HCl (Ondansetron Hcl 4 Mg/2 Ml Vial) 4 mg IVPUSH Q6H PRN PRN Reason: Nausea Last Admin: 04/12/22 15:07 Dose: 4 mg Documented By: MOHAN Pharmacy Consult (Consult Rx Vancomycin Dosing) 1 each MISCELLANE DAILY PRN PRN Reason: Consult order Sodium Bicarbonate (Sodium Bicarbonate 650 Mg Tablet) 650 mg PO BID [facility] Last Admin: 04/27/22 07:57 Dose: 650 mg Documented By: JOZEF Sodium Chloride (0.9 % Sodium Chloride Flush 3 Ml Syringe) 3 ml IVFLUSH QSHIFT [facility] Last Admin: 04/27/22 07:59 Dose: 3 ml Documented By: JOZEF Thiamine HCl (Thiamine Hcl 100 Mg Tablet) 100 mg PO DAILY [facility] Last Admin: 04/27/22 07:57 Dose: 100 mg Documented By: JOZEF Triamcinolone Acetonide (Triamcinolone Acet 0.1 % Cream 15 Gm Tube) 1 appl TOPICAL BID PRN; Protocol PRN Reason: Rash Labs CBC & Chem 7: 04/24/22 06:30 04/27/22 05:46 Labs: Laboratory Results - last 24 hr 04/26/22 04/26/22 04/26/22 11:39 15:28 19:13 Estim Creat Clear Calc Estimated GFR POC Glucose 365 H* 273 H 229 H 04/27/22 04/27/22 04/27/22 05:46 07:12 11:10 Estim Creat Clear Calc 40.3 Estimated GFR 44 POC Glucose 276 H 308 H Microbiology Microbiology Results: Microbiology 04/21/22 13:59 Blood Culture - Final Blood - Venous No growth after 5 days. 04/21/22 13:59 Blood Culture - Final Blood - Venous No growth after 5 days. Assessment and Plan (1) Obstructive nephropathy: Status: Acute (2) Acute blood loss anemia: Status: Acute (3) ANDREEA (acute kidney injury): Status: Acute Plan 76-year-old male presents unresponsive, hypotensive, hypothermic in the backdrop of active urinary sediment.? ?#acute hypoxemic respiratory failure,? possible secondary hypoalbuminemia ,possible liver disease /cirrosis ,less likely CHF, now possible pneumonia- seems to be resolved, currently 95% on RA -echo : ef 55-60% On admission: chest x-ray-? Atelectasis /effusion, ABG reviewed- pH seems fine., ammonia? Fine. Continue suctioning prn,? chest physiotherapy Received Lasix for 1 day but seems like less likely CHF but more likely due to atelectasis/ hypoalbuminemia/now with pneumonia 04/11 CXR shwoing low lung cvolumes with similar small right sided pleural effusions and increased right >left patchy parenchymal airspace opacities reflective of atelectasis vs superimposed infection. Started on zosyn and doxycycline, completed 5 days treatment #toxic metabolic encephalopathy :? Multifactorial(electrolytic abnormalities/poor oral intake/ dementia/zyprexa,andreea on ckd)- mentation now baseline CT head negative,mri reviewed by neuro,EEG due to fairly severe diffuse background slowing consistent with a diffuse encephalopathic process. neuro saw the patient-encephalopathy Possibly? related to multifactorial basis with? hypoxia, metabolic abnormalities and baseline dementia supportive care. -Resume scheduled zyprexa per psychiatry -Treat for pneumonia as below. Recheck for UTI with UA/UC given ongoing encephalopathy and hypothermia -Abdomen also noted to be distended- check abd/pelvis CT #Acute pneumonia-resolved -04/11 CXR shwoing low lung cvolumes with similar small right sided pleural effusions and increased right >left patchy parenchymal airspace opacities reflective of atelectasis vs superimposed infection. Started on zosyn and doxycycline -Completed 5 days zosyn and doxyclycine. D/c'd #hx of HHC s/p ablation ,as well as hx of bladder cancer -Did not tolerate palliative immunotherapy. Follows with outpt urology [facility] who may be recommending palliative radiation therapy to stop bleeding/clots. Not a surgical candidate. -supportive care. -Continue CBI for hematuria. Required 3 units PRBC total during admission. Clots recurred overnight 04/15- requiring irrigation by nursing and urology. Continue CBI WO, now with light pink output, no clots -H/H dropped to 6.8/20.2%. Discussions around hospice have been initiated with nephew, but he is not ready to make the decision and would like patient transfused. Discussed that hematuria will be a recurrent issue and continuing transfusions will not resolve any long tterm issue. Hospice referral requested. 1 unit PRBC received. H/H improved to 9.1/26.5% this am -Family declines right sided nephrostomy tube -Follow CBC -slow cbi #UTI -resolved following 7 days abx. -UA/UC repeated 04/14 due to recurrent hypothermia with negative cultures. # Intermittent hypothermia -Likely secondary to poor nutrition, now eating better -Patient with subclinical hypothyroidism, not likely contributory -Olanzepine held for 4 days with recurrence of hypothermia. Not likely related to antipsychotis use -Not meeting other SIRS criteria, less likely related to infection -Maru oshea prn #Chronic normocytic anemia/thrombocytopenia, leukopenia--> Pancytopenia -Multifactorial -H/H and PLT stable -Transfuse if hgb <7 -follow daily CBCs #Insulin dependent type 2 diabetes- glucsoe levels reasonably controlled -Continue PPN/diabetic diet -POC glucose -humalog SS #Dementia unspecified with agitated features -evaluated by pscyhiatry- olanzepine resumed, continue 5mg nightly ?#failure to thrive/hypoalbuminemia:? patient is not eating well for several weeks. Tolerating one PO meal daily when given by nephew, otherwise still PPN. -Olanzepine resumed last night. Patient more oriented, hopefully with less paranoia. Encourage PO intake for meals -PPN discontinued, eating better -No TPN per family (nephew, Clif, HCP) -seen by speech and swallow -added diet. diet can be tailered as per menatl status. #andreea on ckd(stage unclear ,per family cr is between 2-3): multifactorial -ftt/bladder canncer ,hematuria- resolved cr trending down- now 1.89 as per family his basline cr is between 2-3 hold nephrotoxic meds ,iv hydration -Per nephrology continue LR, avoid nephrotoxic agents, dc octreotide -Resume NaHCO3, CO2<24 -Follow BMP #Hepatic cirrhosis -Rifampin/nadolol has been on hold 2/2 mental status. Resume nadolol and rifampin d/w Gi - ANDREEA less likely hepatorenal. As above ?above management discussed with patient family in detail length they understand and in agreement with the above , healthcare proxy Mr. Menezes- they understand the patient prognosis is poor, currently continue conservative management,Mr menezes -does not wnat tube feeding or HD. Further discussed prognosis with nephewClif, this afternoon. He wishes for palliative therapy for his uncle, but is not quite ready to make the decision to move to hospice. Referral is placed for further discussion. Nephew does wish for blood transfusion today knows this will only improve anemia short term and hematuria will recur given bladder cancer. He has had discussions [facility] urologist about palliative radiation therapy to help stop bleeding, unsure if this can take place with hospice. Referral to hospice for information placed by CM. PPN discontinued. Encourage PO feeds. Full code Vena dynes boots-due to? Anemia/thrombocytopenia ongoing hospitalization for treatment:multiple issues ,acute hypoxemic respiratory failure multifactorial,FTT transitioning off PPN, toxic metabolic encephalopathy, ongoing hematuria requiring transfusion and CBI Time Spent With Patient Time: Total time managing care of this patient today ____ minutes. Quality Stroke Does the patient have a stroke diagnosis?: No VTE Prior VTE?: No VTE Risk Level:: Medical - moderate - high VTE Device Contraindication: N/A - Device Ordered VTE Drug Contraindication: Treatment Not Indicated
--- NOTE | 2022-04-27 12:16 | P.PNNP_ITS ---
Subjective Subjective Date of Service: 04/27/22 Interval history: Seen and examined, events noted, periods of agitation, presently calm Physical Exam Vital Signs: Vital Signs: Last Vital Signs Temp 94.7 F L 04/27/22 11:36 Pulse 67 04/27/22 11:36 Resp 20 04/27/22 11:36 BP 163/77 H 04/27/22 11:36 Pulse Ox 95 04/27/22 11:36 O2 Del Method 04/27/22 11:36 O2 Flow Rate 4 04/27/22 04:00 FiO2 50 04/22/22 11:46 Oxygen Flow Rate 4 03/31/22 10:53 BMI result Body Mass Index 29.5 Const: Other: sleepy but arousable to verbal stimuli General: cooperative, healthy appearing, comfortable, no acute distress, alert, awake, ill appearing and le thargic Nutritional Appearance: overweight and Edematous O rientation/consciousness: oriented to person, oriented to place, patient oriented x3 and lethargic HEENT: Head: Yes normocephalic and Yes atraumatic Face and sinus: Yes normal facial exam Mouth: moist mucous membranes Eyes: Sclerae: sclerae normal EOM: EOMs intact bilaterally Neck: Other: supple Neck: Yes normal visual inspection, Yes full ROM, Yes no lymphadenopathy, Yes trachea midline and Yes supple Chest: Other: clear Chest palpation & inspection: normal inspection of the chest Resp: Other: diminished breath sounds Effort & Inspection: normal respiratory effort, able to speak in complete sentences, no respiratory distress and no use of accessory muscles Aus cultation: crackles (Diffuse bilateral) Cardio: Other: No S4; positive S1-S2; no S3 murmurs rubs or gallops Rate: regular rate Rhythm: regular rhythm Heart sounds: S1 normal heart sound present, S2 normal heart sound present, no gallops, no murmurs and no rubs GI: Other: slt distended,decreased bowel sounds Inspection: Yes normal to inspection and No distended Palpation (GI): Soft to palpation, nontender and Other GI palpation findings present ( Nontender) Auscultation: normal bowel sounds : Other: villareal in place, clear urine left nephrostomy tube in place Penis: normal penis Scrotum: scrotum normal Back/Spine/Pelvis: Other: Percutaneous nephrostomy tube draining clear fluid; flushes well per nursing Cervical Spine: normal cervical lordosis Thoracic/Lumbar Spine: thoracic and lumbar spine normal to inspection Skin: General skin exam: no rashes or lesions noted Neuro: Other: grossly nonfocal General: oriented to person, oriented to place, patient oriented x3, tone normal and moves all extremities Extrem: Other: moving all 4 extremities spontaneously General: Yes normal to inspection, Yes capillary refill normal, Yes no pedal edema, No clubbing, No cyanosis and Yes edema (1+ bilateral) Psych: Other: somnolence Objective Data Labs CBC & Chem 7: 04/24/22 06:30 04/27/22 05:46 Labs: Laboratory Results - last 24 hr 04/26/22 04/26/22 04/26/22 11:39 15:28 19:13 Creatinine Estim Creat Clear Calc Estimated GFR POC Glucose 365 H* 273 H 229 H 04/27/22 04/27/22 04/27/22 05:46 07:12 11:10 Creatinine 1.55 H Estim Creat Clear Calc 40.3 Estimated GFR 44 POC Glucose 276 H 308 H Microbiology Microbiology Results: Microbiology 04/21/22 13:59 Blood - Venous Blood Culture - Final No growth after 5 days. 04/21/22 13:59 Blood - Venous Blood Culture - Final No growth after 5 days. 04/14/22 11:15 Blood - Venous Blood Culture - Final No growth after 5 days. 04/14/22 11:15 Blood - Venous Blood Culture - Final No growth after 5 days. 04/14/22 00:00 Urine clean catch - Urine villavicencio top Urine Culture - Final No growth. 03/31/22 15:07 Blood - Venous Blood Culture - Final No growth after 5 days. 03/31/22 15:07 Blood - Venous Blood Culture - Final No growth after 5 days. 03/31/22 00:00 Urine Other - Nephrostomy Urine Culture - Final Staphylococcus cohnii ssp urea 03/31/22 15:02 Blood - Venous Blood Culture - Final 03/31/22 15:02 Blood - Venous Blood Culture - Final Procedures Date of Service Date of Service: 04/27/22 Assessment & Plan Assessment and plan (1) Obstructive nephropathy: Status: Acute (2) Acute blood loss anemia: Status: Acute (3) ANDREEA (acute kidney injury): Status: Acute Plan 76-year-old with ANDREEA from obstruction now resolved CKD stable 2 days ago his hemoglobin was 8.6 creatinine today is 1.55 down from from a peak of 5.18 on April 11 his iron saturation is 48 he would benefit from Procrit #UTI -resolved following 7 days abx. -UA/UC repeated 04/14 due to recurrent hypothermia with negative cultures. ? Time Spent With Patient Time: Total time managing care of this patient today ____ minutes. Progress Note: Quality Stroke Does the patient have a stroke diagnosis?: No
[2022-04-27 12:54] VITALS: TEMP 36.1
[2022-04-27 13:43] LABS: COVID-19 Test Negative (Negative); IDNOW Serial# 55D5AD1C
[2022-04-27] MEDS: cefTRIAXone sodium 1 GM in 0.9 % Sodium Chloride 50 ML IV (14:33)
--- NOTE | 2022-04-27 15:46 | PM.DS ---
DS: Providers Provider Date of Service: 04/27/22 Date of admission: 03/31/22 15:32 Primary care physician: Martha Mckeon MD Consults: 04/02/22 10:19 Consult to Urology Stat Consulting Provider: Fermin Bermudez Reason for consultation: Hematuria from nephrostomy tube Has provider been notified: Yes 04/06/22 09:12 Consult to Neurology Routine Consulting Provider: [facility] Reason for consultation: encephalopathy-unclear etiology Has provider been notified: No 04/06/22 09:32 Consult to Infectious Diseases Routine Consulting Provider: Paty Castle Reason for consultation: uti/hypothermia Has provider been notified: No 04/06/22 11:34 Consult to Critical Care Routine Consulting Provider: Quan Jeong Reason for consultation: level of care Has provider been notified: No 04/06/22 12:48 Consult to Psychiatry Stat Consulting Provider: Psych [facility] Reason for consultation: psycosis/delirum Has provider been notified: No 04/07/22 08:08 Consult to Cardiology Routine Consulting Provider: Weston Hess Reason for consultation: acute hypoxemic respiratory failure sec to chf Has provider been notified: No 04/08/22 10:41 Consult to Nephrology Routine Consulting Provider: Adam Pena Reason for consultation: akion ckd 04/09/22 08:38 Consult to Gastroenterology Routine Consulting Provider: [facility] Reason for consultation: possible hepatorenal syndrome Has provider been notified: No 04/11/22 08:09 Consult to Urology Routine Consulting Provider: [facility] Reason for consultation: claudia hematuria recccurrent Has provider been notified: No 04/25/22 18:31 Consult for Sitter Routine Reason for consultation: Pt agitated, getting out of bed multiple time (CBI in place) and pt confuse DS: Diagnosis Discharge Diagnosis (1) Obstructive nephropathy: Status: Acute (2) Acute blood loss anemia: Status: Acute (3) ANDREEA (acute kidney injury): Status: Acute DS: Summary Hospital Course Hospital Course: Chief Complaint: Unresponsiveness 76-year-old male presents from local custodial with chief complaint of unresponsiveness.? Per ER patient had pinpoint pupils but did not respond to Narcan.? States initial workup included only CT head neck and brain which failed to demonstrate pathology that would be responsible for this presentation.? Patient was hypotensive and hypothermic; placed on Maru Hugger and given IV fluids.? Noted to be anemic with a hemoglobin of 5.6 for which 2 units were transfused.? Sepsis protocol initiated with blood cultures being drawn x2; ceftriaxone 1 g IV x1 after urine culture.? Saline bolus of 30 cc/kilogram given with improvement of hypotension.? Urine with active sediment. ..? Likely culprit.? Lactate negative.? Seen by ICU in consultation however patient's blood pressure and temperature of improved significantly and therefore will be admitted to telemetry for further workup and treatment of same Hospital: Patient presented as above and has had complicated and prolonge stay as itemized below #Acute hypoxemic respiratory failure on presentation likely multi factorial including possible CHF and pneumonia. He has been completed a course of antibiotics and presently Oxygen saturiation on room is 95 on RA. #Toxic metabolic encephalopathy :? Multifactorial related to ectrolytic abnormalities/poor oral intake, underlying dementia, renal failure, UTI. An EEG confirmed encephaopathy with difuse slow waves. CT and MRI showed no acute finding to explain this. Was seen by Neurology to confirmed diagnosis of encephalopathy. Acute encephalopathy has resolved and is presently at baseline dementia. #Acute pneumonia--Treated and resolved. #History of hepatocellular carcinoma s/p ablation ,as well as hx of bladder cancer for which he did not tolerate palliative immunotherapy. To Follow up with his outpt urology at [facility] for paliative radiotherapy; he is not a candidate for surgery. #Hematuria clot and required extensive continuous bladdder irgiation as well manual irigation and ultimately the bleeding stopped and CBI was discontinued. Dr Bermudez the urogist here recommended that he follows up with his urogist at [facility] besides that hospice topic was discussed with his nephew and health care proxy who may consider it in the future but for now wants to puruit all possible treatment options for patient, he is aware that hematuria may recur at any time. #obstructive uropathy d/t bladd cancer has an existant left nephrostomy tube and a right nephrostomy also was recommended but they declined this. #ANDREEA on CKD 3, acute phase likely from obstructive urogpathy from bladder cancer. He presented with creatine of 2.6 on 03/31 and worsened to 5.18 on 12/4 and has steadily come down to presently 1.55 as of 04/27/22 #UTI--treated and resolved. . # Intermittent hypothermia -Likely secondary to poor nutrition, now eating better -Patient with subclinical hypothyroidism, not likely contributory -Olanzepine held for 4 days with recurrence of hypothermia. Not likely related to antipsychotis use and not thouth to be infectious related either He needs multiple layers and blankets to prevent this from hapening amd temperature in the room should be maintain at least 70F or above #Pancytopenia--likely from cancer. #Acute blood loss anemia--Was transfused. Baseline hematocrit is around 23, presently 25 #Insulin dependent type 2 diabetes- glucsoe levels reasonably controlled--managed with sliding scale insulin and diabetic diet #Dementia unspecified? with period behavioral disturbance--Psych recommends continuing with Olanzapine ?#failure to thrive/hypoalbuminemia/moderate protein calory malnutrition:? patient is not eating well for several weeks. At one point was on PPN but his but now his oral intake has signficantly improved and no longer on PPN. TPN was declined by HCP Nephew Clif. He is now eating well. #Hepatic cirrhosis--on nadolol and rifampin ?Over the course of hospitalization, HCP (Clif) has been updated along the way and understands that patient's prognosis is rather poor and option of hospice was discussed but not considered yet. Would not be a suprise for this patient to be readmitted given his complex issues and unpredictable issues. Time Spent with Patient Time attestation: Total time managing care of this patient today ____ minutes. Discharge coordination time: Greater than 30 minutes Quality: Safe Use of Opioids Does Pt have an Active Cancer Diagnosis on the Problem List?: Yes Opioid Measure Date for [facility] Report: 03/28/22 Opioid Measure Time for [facility] Report: 16:26 Quality: Stroke Does the patient have a stroke diagnosis?: No Physical Exam Vital Signs: Vital Signs: Last Vital Signs Temp 96.9 F 04/27/22 12:54 Pulse 67 04/27/22 11:36 Resp 20 04/27/22 11:36 BP 163/77 H 04/27/22 11:36 Pulse Ox 95 04/27/22 11:36 O2 Del Method 04/27/22 11:36 O2 Flow Rate 4 04/27/22 04:00 FiO2 50 04/22/22 11:46 Oxygen Flow Rate 4 11/23/22 10:53 BMI result Body Mass Index 29.5 DS: Data Data Completed and Pending Labs on day of discharge: Laboratory Results - last 24 hr 04/26/22 04/27/22 04/27/22 19:13 05:46 07:12 Creatinine 1.55 H Estim Creat Clear Calc 40.3 Estimated GFR 44 POC Glucose 229 H 276 H Random Vancomycin COVID-19 (BETSY) COVID-19 Clin Com 04/27/22 04/27/22 04/27/22 11:10 13:14 14:43 Creatinine Estim Creat Clear Calc Estimated GFR POC Glucose 308 H Random Vancomycin 13.0 L COVID-19 (BETSY) Negative COVID-19 Clin Com See Note Discharge Plan Discharge Anticipated Discharge Date/Time: 04/27/22 15:40 Patient Disposition: er [facility] Discharge Diagnosis: Bladder cancer, hematuria, renal failre, acute blood loss anemia Referrals: Martha Mckeon MD [Primary Care Provider] - 1 Week Discharge Medications: Continued multivitamin Tablet 1 tab PO DAILY atorvastatin 40 mg tablet 1 tab PO DAILY sennosides [senna] 8.6 mg Tablet 8.6 mg PO BEDTIME ondansetron HCl 4 mg tablet 1 tab PO Q8H PRN (Reason: Nausea) olanzapine 5 mg tablet 1 tab PO BEDTIME triamcinolone acetonide 0.1 % cream 1 applic topical BID PRN (Reason: Rash) nadolol 20 mg tablet 1 tab PO DAILY amlodipine 10 mg tablet 1 tab PO DAILY ferrous sulfate 325 mg (65 mg iron) Tablet 325 mg PO DAILY insulin lispro 100 unit/mL solution 0 sliding scale dose subcut QIDACHS Protocol: Insulin Correction Scale Less than or equal to 110 ---- Give (units): 0 111 to 150 Give (units): 0 151 to 200 Give (units): 2 201 to 250 Give (units): 4 251 to 300 Give (units): 6 301 to 350 Give (units): 8 Greater than 350 Give (units): 10 Call MD if Blood Glucose > : 350 clotrimazole 1 % Cream 1 appl TOPICAL BID PRN (Reason: Rash) docusate sodium 100 mg Tablet 100 mg PO DAILY thiamine HCl (vitamin B1) 50 mg Tablet 50 mg PO DAILY Xifaxan 550 mg tablet 1 tab PO BID Discontinued sodium bicarbonate 650 mg Tablet 650 mg PO BID aspirin 81 mg Tablet,Chewable 81 mg PO DAILY Trulicity 0.75 mg/0.5 mL pen injector 0.75 mg subcut WE insulin glargine-yfgn 100 unit/mL solution 14 unit subcut DAILY acetaminophen 325 mg Tablet 650 mg PO Q4H PRN (Reason: Pain) Discharge Orders: Discharge Order (Routine); Ordered 04/27/22 Ordered By: Aguilar Palma Diet: Advance to usual diet Activity on Discharge: No Running or jogging Stand Alone Forms: Patient Portal Discharge page Care Plan Goals: Overall goal should comfort, resolution of recurrent hematuria and related bladder cancer issues Health Concerns: Bladder cancer hepatocellular carcinoma Encephalopathy anemia respiratory failure renail failure failure to thrive hypothermaia. Plan of Treatment: To SNF Follow up with urogist to evaluation for radiation or other treatment options Assessment: as above
--- NOTE | 2022-04-27 16:02 | MHC.CM.PN ---
[facility] is here to product picker Patient. Per RN, who came to NENA's office, is asking that Ambulance come back at 6PM to allow him time to work on the dc . NENA has phoned [facility] and the Ambulance will return at 6PM.
[2022-04-27 16:22] VITALS: BP 140/85; PULSE 72; O2SAT 98
[2022-04-27] MEDS: vancomycin HCL 750 MG in 0.9 % Sodium Chloride 250 ML 265 MG IV (16:24)
[2022-04-27 16:29] LABS: Glucose, Whole Blood 175 mg/dL (60-115)
--- NOTE | 2022-04-27 16:55 | MHC.SLORD ---
Speech Language Pathology Order Status: Patient's diet advanced to Chopped/Advanced on 04/26/22. Attempted to see patient at lunch today. Patient with sitter in room, patient was attempting to get out of bed, being defiant and argumentative. Patient refused lunch. Sitter given some de-escalation strategies/suggestions, nursing advised of patients combativeness. RESEARCH PROFESSIONAL will re-attempt tomorrow.
[2022-04-27] MEDS: OLANZapine 5 MG TABLET PO (17:35)
[2022-04-27 17:39] VITALS: TEMP 35.8
--- NOTE | 2022-04-27 17:52 | PC.NURSE ---
have called [facility] to give nurse to nurse report and have been unable to contact appropriate RN. Will call again upon dc of patient.
== END 2022-04-27 18:35 | disposition skilled nursing facility (03) | DRG 698 ==
LOC: HO.ED 11:38 → HO.EDOVER 15:38 → HO.IMC 15:44
PROVIDERS: Internal Medicine; Internal Medicine Nephrology; Physician Assistant; Physician Assistant Medical; Student in an Organized Health Care Education/Training Program; Admitting Provider Hospitalist; Emergency Provider Emergency Medicine; PCP Internal Medicine; Visit Provider Internal Medicine
DX: N13.9 Obstructive and reflux uropathy, unspecified (principal); G92.8 Other toxic encephalopathy; J18.9 Pneumonia, unspecified organism; J96.01 Acute respiratory failure with hypoxia; K76.7 Hepatorenal syndrome; N17.9 Acute kidney failure, unspecified; F03.911 Unspecified dementia, unspecified severity, with agitation; F05 Delirium due to known physiological condition; D62 Acute posthemorrhagic anemia; E44.1 Mild protein-calorie malnutrition; D61.818 Other pancytopenia; N39.0 Urinary tract infection, site not specified; R31.0 Gross hematuria; F20.9 Schizophrenia, unspecified; R62.7 Adult failure to thrive; Z68.29 Body mass index [BMI] 29.0-29.9, adult; I50.9 Heart failure, unspecified; N18.32 Chronic kidney disease, stage 3b; E11.22 Type 2 diabetes mellitus with diabetic chronic kidney disease; D63.1 Anemia in chronic kidney disease; E88.09 Other disorders of plasma-protein metabolism, not elsewhere classified; Z66 Do not resuscitate; D63.0 Anemia in neoplastic disease; C67.9 Malignant neoplasm of bladder, unspecified; K74.60 Unspecified cirrhosis of liver; Z93.6 Other artificial openings of urinary tract status; Z85.05 Personal history of malignant neoplasm of liver; Z20.822 Contact with and (suspected) exposure to COVID-19; R68.0 Hypothermia, not associated with low environmental temperature; Z79.4 Long term (current) use of insulin; Z79.899 Other long term (current) drug therapy
CPT/HCPCS: 0241U; 36415; 36600; 70450; 70496; 70498; 70551; 71045; 74176; 76700; 78580; 80048; 80053; 80076; 80202; 81001; 82040; 82140; 82272; 82533; 82550; 82565; 82803; 82947; 83540; 83605; 83735; 83880; 84100; 84145; 84156; 84300; 84439; 84443; 84478; 84484; 85014; 85018; 85025; 85027; 85379; 85384; 85610; 85730; 86704; 86705; 86706; 86803; 86850; 86900; 86901; 86923; 87040; 87086; 87088; 87340; 87389; 87633; 87635; 92526; 92610; 93005; 93306; 93970; 95816; 97162; 99285; A9540; C1758; J0131; J0610; J0696; J0885; J1940; J1956; J2354; J2405; J2543; J3370; J3411; J3430; J3475; P9016; P9047; Q9957; Q9967

== ENCOUNTER 2022-04-28 04:15 | Emergency (ER) | payer OTHER, SELFPAY ==
[2022-04-28 04:21] VITALS: BP 107/68; BP 117/67; PULSE 72; RESP 16; TEMP 36.6; O2SAT 95; O2SAT 96; BMI 25.0
--- NOTE | 2022-04-28 04:36 | ED.MALEGU ---
HPI - Male Genitourinary General Chief complaint: Urogenital-Male Stated complaint: villareal cath problems Time Seen by Provider: 04/28/22 04:36 Source: patient Mode of arrival: ambulatory Limitations: no limitations History of Present Illness HPI Narrative: Patient history of dementia bladder cancer with left urostomy tube had Villareal catheter placed a month ago comes here from skilled nursing as he pulled out his catheter. Patient came son came does not want a Villareal catheter as was plan to remove it anyway next week patient otherwise is as his baseline afebrile mentation at baseline Related Data Home Medications Medication Instructions Recorded Confirmed amlodipine 10 mg tablet 1 tab PO DAILY 03/31/22 03/31/22 atorvastatin 40 mg tablet 1 tab PO DAILY 03/31/22 03/31/22 clotrimazole 1 % topical cream 1 appl topical BID PRN Rash 03/31/22 03/31/22 docusate sodium 100 mg tablet 100 mg PO DAILY 03/31/22 03/31/22 ferrous sulfate 325 mg (65 mg 325 mg PO DAILY 03/31/22 03/31/22 iron) tablet insulin lispro 100 unit/mL 0 sliding scale dose subcut QIDACHS 03/31/22 03/31/22 subcutaneous solution multivitamin 1 tab PO DAILY 03/31/22 03/31/22 nadolol 20 mg tablet 1 tab PO DAILY 03/31/22 03/31/22 olanzapine 5 mg tablet 1 tab PO BEDTIME 03/31/22 03/31/22 ondansetron HCl 4 mg tablet 1 tab PO Q8H PRN Nausea 03/31/22 03/31/22 rifaximin 550 mg tablet (Xifaxan) 1 tab PO BID 03/31/22 03/31/22 sennosides 8.6 mg tablet (senna) 8.6 mg PO BEDTIME 03/31/22 03/31/22 thiamine HCl (vitamin B1) 50 mg 50 mg PO DAILY 03/31/22 03/31/22 tablet triamcinolone acetonide 0.1 % 1 applic topical BID PRN Rash 03/31/22 03/31/22 topical cream Allergies Allergy/AdvReac Type Severity Reaction Status Date / Time No Known Allergies Allergy Verified 03/31/22 10:34 Review of Systems Review of Systems: Yes all other systems are reviewed and are negative PMFSH Past Medical History Medical History ANDREEA (acute kidney injury) Social History Social History Household Members: None Housing: Assisted Living Facility Patient Tobacco Use Status: Never used Tobacco Advance Directives: No Advance Directives Information Provided: No service: No Current occupational status: disabled Physical Exam Vital Signs: Vital Signs: Last Vital Signs Temp 98.1 F 04/28/22 06:13 Pulse 72 04/28/22 06:13 Resp 16 04/28/22 06:13 BP 146/83 H 04/28/22 06:13 Pulse Ox 96 04/28/22 06:13 O2 Del Method 04/28/22 06:13 BMI result Body Mass Index 25.0 Appearance: Alert. Oriented X 1-2 No acute distress. Eyes: PERRLA, No Nystagmus ENT: Pharynx normal. Oral Mucosa moist Neck: Normal inspection. Neck supple. CVS: Normal heart rate and rhythm. Pulses normal. Respiratory: No respiratory distress. Equal air entry bilateral, no wheezing/rales/rhonchi Abdomen: Soft and nontender. Bowel sounds are present, no mass palpable, no CVA tenderness left-sided ostomy in place Skin: Skin warm and dry. Normal skin color. Normal skin turgor. Extremities: No lower extremity edema. No calf tenderness Neuro: Oriented X 1-2. No motor deficit. Medical Decision Making Medical Decision Making MDM Narrative: Patient's son does not want Villareal catheter would like to see whether patient can urinate office on or not patient has planned to see urologist this week 650am patient urinated small amount of blood clots patient nephew still does not want Villareal catheter like to wait after more oral hydration Discharge Plan Discharge Clinical Impression: Encounter for Villareal catheter replacement Patient Disposition: Still a Patient Prescriptions: No Action multivitamin Tablet 1 tab PO DAILY atorvastatin 40 mg tablet 1 tab PO DAILY sennosides [senna] 8.6 mg Tablet 8.6 mg PO BEDTIME ondansetron HCl 4 mg tablet 1 tab PO Q8H PRN (Reason: Nausea) olanzapine 5 mg tablet 1 tab PO BEDTIME triamcinolone acetonide 0.1 % cream 1 applic topical BID PRN (Reason: Rash) nadolol 20 mg tablet 1 tab PO DAILY amlodipine 10 mg tablet 1 tab PO DAILY ferrous sulfate 325 mg (65 mg iron) Tablet 325 mg PO DAILY insulin lispro 100 unit/mL solution 0 sliding scale dose subcut QIDACHS Protocol: Insulin Correction Scale Less than or equal to 110 ---- Give (units): 0 111 to 150 Give (units): 0 151 to 200 Give (units): 2 201 to 250 Give (units): 4 251 to 300 Give (units): 6 301 to 350 Give (units): 8 Greater than 350 Give (units): 10 Call MD if Blood Glucose > : 350 clotrimazole 1 % Cream 1 appl TOPICAL BID PRN (Reason: Rash) docusate sodium 100 mg Tablet 100 mg PO DAILY thiamine HCl (vitamin B1) 50 mg Tablet 50 mg PO DAILY Xifaxan 550 mg tablet 1 tab PO BID
[2022-04-28 05:47] VITALS: BP 128/74; PULSE 67; RESP 16; TEMP 36.7; O2SAT 97
--- NOTE | 2022-04-28 05:49 | PC.NURSE ---
Pt's nephew is at bedside. Pt has hx of schizophrenia, paranoia and beginning of dementia. Pt does not appear any distress. Pt's V/S are stable. labs has been drawn.
[2022-04-28 06:13] VITALS: BP 146/83; PULSE 72; RESP 16; TEMP 36.7; O2SAT 96
[2022-04-28 07:27] VITALS: BP 128/72; PULSE 72; RESP 16; TEMP 36.2; O2SAT 94
--- NOTE | 2022-04-28 11:33 | PC.NURSE ---
pt did not have a bag attached to his nephrostomy tube, there was blood in the tube, it did not appear to be sutured in, there was a dressing on it, dr Osborne and VERONICA Carey took a look at it. the pt family came to the ed to bring the pt to [facility] nephrology, the pt has not voided yet, had approx 120ml in bladder via scan, nad , denies abd pain,
--- NOTE | 2022-04-28 13:04 | PC.NURSE ---
spoke w RN @ [facility] - pt taken by family to [facility].
== END 2022-04-28 11:23 | disposition home or self-care (01) ==
PROVIDERS: Emergency Provider Student in an Organized Health Care Education/Training Program
DX: Z46.6 Encounter for fitting and adjustment of urinary device (principal); E11.9 Type 2 diabetes mellitus without complications; C67.9 Malignant neoplasm of bladder, unspecified; D64.9 Anemia, unspecified; Z79.4 Long term (current) use of insulin; Z79.02 Long term (current) use of antithrombotics/antiplatelets; Z79.899 Other long term (current) drug therapy
CPT/HCPCS: 99283; 99284